=== PATIENT | male | born 1975 | race Caucasian/White ===

== ENCOUNTER 2020-04-27 14:08 | Outpatient (REF) | payer OTHER, SELFPAY ==
[2020-04-27 14:30] LABS: COVID-19 Test Negative (Negative)
== END 2020-04-27 14:09 | disposition home or self-care (01) ==
LOC: HO.LAB 14:08
PROVIDERS: Visit Provider Internal Medicine
DX: Z20.828 Contact with and (suspected) exposure to other viral communicable diseases (principal)
CPT/HCPCS: 87635

== ENCOUNTER 2020-05-02 11:41 | Emergency (ER) | payer OTHER, SELFPAY ==
[2020-05-02 11:56] VITALS: BP 194/98; PULSE 92; RESP 20; TEMP 36.6; O2SAT 100; BMI 38.5
--- NOTE | 2020-05-02 11:57 | ED_ITS ---
HPI - Recheck/Abnormal Lab/Rx General Chief Complaint: General Medical Stated Complaint: high blood pressure Time Seen by Provider: 05/02/20 11:52 Source: patient Mode of arrival: ambulatory Limitations: no limitations History of Present Illness HPI narrative: 44 y/o male with history of poorly controlled DM on insulin, osteomyelitis s/p bilateral BKA's, asthma, HTN hepatitis C, anxiety who presents today with high blood pressure x4 days associated with headache. He states his BP readings at home have been 220/110 every morning. He has been compliant with his lopressor xl and he recently had losartan added. He took both prior to coming to the ER today. Denies chest pain, SOB, vision changes. BP on arrival 19 0/90. Related Data Previous Rx's Medication Instructions Recorded labetalol 100 mg PO BID #30 tab 05/02/20 Allergies Allergy/AdvReac Type Severity Reaction Status Date / Time clindamycin [CLINDAMYCIN] Allergy Intermediate RASH ALL Verified 05/02/20 11:56 OVER SKIN ON BACK daptomycin [DAPTOMYCIN] Allergy Mild UNKNOWN Verified 05/02/20 11:56 doxycycline [DOXYCYCLINE] Allergy Mild HIVES Verified 05/02/20 11:56 vancomycin [VANCOMYCIN] Allergy Mild UNKNOWN Verified 05/02/20 11:56 amoxicillin Allergy Unknown Unknown Verified 05/02/20 11:56 cephalexin [From Keflex] Allergy Unknown HIVES Verified 05/02/20 11:56 penicillin V Allergy Unknown Unknown Verified 05/02/20 11:56 Sulfa (Sulfonamide Allergy Unknown Unknown Verified 05/02/20 11:56 Antibiotics) sulfamethoxazole Allergy Unknown HIVES Verified 05/02/20 11:56 [From Bactrim] trimethoprim [From Bactrim] Allergy Unknown HIVES Verified 05/02/20 11:56 Review of Systems Review of Systems: Constitutional: No Fever, No Chills ENT/Mouth: No sore throat, No Rhinorrhea, No Swallowing Difficulty Eyes: No Eye Pain, No Swelling, No Redness Cardiovascular: No Chest Pain, No SOB, No Orthopnea, No Edema Respiratory: No Cough, No Sputum, No Wheezing, No dyspnea Gastrointestinal: No Nausea, No Vomiting, No Diarrhea, No abdominal Pain, No Hematochezia, No Melena Genitourinary: No Dysuria, No Urinary Frequency, No Hematuria Musculoskeletal: No joint pain, No Myalgias Skin: No Skin Lesions, No rash Neuro: No Weakness, No Numbness, No Dizziness, + Headache Psych: No Anxiety/Panic, No Depression Heme/Lymph: No Bruising, No Lymphadenopathy Endocrine: No Polyuria, No Polydipsia PMFSH Past Medical History Attestation statement: The following information was validated with the patient. Medical History Amputated below knee Diabetes Hypertension Opiate abuse, episodic Surgical History (Updated 05/02/20 @ 11:59 by Laney Gonsales) History of shoulder surgery Social History Social History Alcohol intake: never Smoking Status: Never smoker Use of substances other than those prescribed or required for medical reasons: No Advance Directives: No Advance Directives Information Provided: No Physical Exam Vital Signs: Vital Signs: Vital Signs Temp Pulse Resp BP Pulse Ox 05/02/20 16:23 115 H 171/89 H 05/02/20 16:00 97.8 F 94 16 171/89 H 99 05/02/20 14:04 91 170/88 H 05/02/20 13:04 97 12 176/95 H 05/02/20 12:36 98.4 F 103 H 18 172/86 H 98 05/02/20 11:56 97.8 F 92 20 194/98 H 100 Body Mass Index 38.5 Appearance: Alert. Oriented X3. No acute distress. Eyes: Pupils equal, round and reactive to light. ENT: Pharynx normal. Neck: Normal inspection. Neck supple. CVS: Normal heart rate and rhythm. Pulses normal. Respiratory: No respiratory distress. Breath sounds normal. Abdomen: Obese, Soft and nontender. +BS x4 Skin: Skin warm and dry. Normal skin color. Normal skin turgor. No rashes. Extremities: s/p bilateral BKA Neuro: Oriented X 3. No motor deficit. No sensory deficit. Course Course Course Narrative: BP 181/96 on arrival that improved to 172/[address] head negative. Will hold off on IV antihypertensives at this time. He states his usual BP is 160's systolic. Reevaluation(s) Reevaluation #1: glucose noted to be 515 without evidence of DKA. IVF ordered and SQ insulin. He is on high doses of insulin and did not take his insulin today because he did not feel well and knew he was coming to the ER. BP remains stable 170's/80-90's without intervention. CKD at baseline 2.3 from 2.1. He would like to be changed from Toprol XL to another medication for his BP. He feels like this one does not work well for him. Spoke with [facility] for dosing equivalent - will change to labetolol 100 BID and d/c Toprol XL. He has an appointment with his Senior Business Development Manager next week when he returns from [place]. He is stable for discharge. MDM - Recheck/Abnormal Lab/Rx Lab Data Result diagrams: 05/02/20 12:42 05/02/20 12:42 Labs: Lab Results 05/02/20 05/02/20 Range/Units 12:42 12:42 WBC 7.2 (4.8-10.8) X10*3/uL RBC 3.89 L (4.60-5.80) X10*6/uL Hgb 11.1 L (14.0-18.0) g/dl Hct 33.8 L (42-52) % MCV 86.9 (80-98) fL MCH 28.5 (27.0-33.0) pg MCHC 32.8 (31.0-36.0) g/dl RDW 13.3 (11.0-16.0) % Plt Count 93 L (160-400) X10*3/uL MPV 13.7 H (9.4-12.4) fL Immature Gran % (Auto) 0.1 (0.0-0.4) % Neut % (Auto) 63.4 (45-73) % Lymph % (Auto) 25.7 (20-40) % Putnam % (Auto) 9.4 (2-11) % Eos % (Auto) 1.1 (0-4) % Baso % (Auto) 0.3 (0-2) % Lymph # (Auto) 1.9 (1.2-4.9) X10*3/uL Putnam # (Auto) 0.7 (0.1-1.2) X10*3/uL Eos # (Auto) 0.1 (0.0-0.4) X10*3/uL Baso # (Auto) 0.0 (0.0-0.2) X10*3/uL Abs Immat Gran (auto) 0.01 (0.00-0.03) X10*3/uL Absolute Neuts (auto) 4.6 (2.0-8.3) X10*3/uL Absolute Nucleated RBC 0.000 (0.0-0.012) X10*3/uL Nucleated RBC % (auto) 0.0 (0.0-0.2) /100WBC Smear Tech's Comments VERIFIED Sodium 131 L (135-145) mmol/L Potassium 4.3 (3.3-5.1) mmol/l Chloride 100 (96-108) mmol/L Carbon Dioxide 24 (22-29) mmol/L Anion Gap 11 L (12-20) BUN 29 H (9-16) mg/dL Creatinine 2.32 H (0.5-1.4) mg/dL Estim Creat Clear Calc 59.6 Estimated GFR 31 Random Glucose 515 H* (60-115) mg/dL Calcium 7.9 L (8.4-10.2) mg/dL Discharge Plan Discharge Clinical Impression: Hypertension associated with stage 3 chronic kidney disease due to type 2 diabetes mellitus Chronic pain Qualifiers: Chronic pain type: chronic pain syndrome Qualified Code(s): G89.4 - Chronic pain syndrome Patient Disposition: Home, Self-Care Instructions: Low-Sodium Diet (ED), Hypertension and Diabetes (ED) Additional Instructions: It is important that you take all of your medications as prescribed. Your blood pressure medication was changed from metoporolol XL to labetalol for better BP control. STOP taking Metoprolol. If is important that you follow up with your doctor for further management of your blood pressure, kidney disease, and diabetes. Your blood sugar today was very elevated. You must adhere to a diabetic diet and take your insulin as directed. If you develop chest pain, shortness of breath, recurrent headache or dizziness, or persistently elevated blood pressure call 911 or come back to the ER for further evaluation. Prescriptions: New labetalol 100 mg tablet 100 mg PO BID Qty: 30 RF: 0
--- NOTE | 2020-05-02 12:15 | CT_ITS ---
EXAMINATION: CT HEAD WITHOUT CONTRAST CLINICAL INFORMATION: Headache. COMPARISON: None TECHNIQUE: Contiguous axial imaging was performed from the skull base to vertex without intravenous administration of contrast. This CT examination was performed using dose optimization techniques as appropriate, variously including the following: *Automated exposure control *Adjustment of mA and/or kV according to patient size (this includes techniques or standardized protocols for targeted exams where dose is matched to indication/reason for exam; i.e. extremities or head) *Use of iterative reconstruction technique DLP: 906 mGy-cm FINDINGS: There is no evidence of acute intracranial hemorrhage or territorial infarction. No abnormal mass effect or midline shift is seen. Coleman to white matter differentiation is well preserved. No extra-axial fluid collections are identified. The ventricles are normal in size. There is no abnormal attenuation within the brain parenchyma. The osseous structures and soft tissues are normal. The mastoid air cells and visualized portions of the paranasal sinuses are well aerated. IMPRESSION: No acute intracranial process seen.
[2020-05-02 12:36] VITALS: BP 172/86; PULSE 103; RESP 18; TEMP 36.9; O2SAT 98
[2020-05-02 12:48] LABS: Basophils Percent Auto 0.3 % (0-2); Imm Gran Abs Auto 0.01 X10*3/uL (0.00-0.03); Imm Gran Pct Auto 0.1 % (0.0-0.4); MANUAL DIFF FLAG SCAN; SCAN SMEAR FLAG 1
[2020-05-02 12:50] LABS: Eosinophils Absolute Auto 0.1 X10*3/uL (0.0-0.4); Eosinophils Percent Auto 1.1 % (0-4); Hematocrit 33.8 % (42-52); Hemoglobin 11.1 g/dl (14.0-18.0); Lymphocytes Absolute Auto 1.9 X10*3/uL (1.2-4.9); Lymphocytes Percent Auto 25.7 % (20-40); Mean Corpuscular HGB Conc 32.8 g/dl (31.0-36.0); Mean Corpuscular Hemoglobin 28.5 pg (27.0-33.0); Mean Corpuscular Volume 86.9 fL (80-98); Mean Platelet Volume 13.7 fL (9.4-12.4); Monocytes Absolute Auto 0.7 X10*3/uL (0.1-1.2); Monocytes Percent Auto 9.4 % (2-11); Neutrophils Absolute Auto 4.6 X10*3/uL (2.0-8.3); Neutrophils Percent Auto 63.4 % (45-73); Red Blood Count 3.89 X10*6/uL (4.60-5.80); Red Cell Distribution Width 13.3 % (11.0-16.0); White Blood Count 7.2 X10*3/uL (4.8-10.8)
[2020-05-02 12:51] LABS: PLT ABN DIST 1; Platelet Count 93 X10*3/uL (160-400)
[2020-05-02 13:04] VITALS: BP 176/95; PULSE 97; RESP 12
[2020-05-02 13:10] LABS: SLIDE REVIEW VERIFIED
[2020-05-02 13:44] LABS: Anion Gap 11 (12-20); Blood Urea Nitrogen 29 mg/dL (9-16); Calcium 7.9 mg/dL (8.4-10.2); Carbon Dioxide 24 mmol/L (22-29); Chloride 100 mmol/L (96-108); Creatinine Clr Calc Pharmacy 59.6; Estimated Glomerular Filt Rate 31; Glucose Random 515 mg/dL (60-115); Potassium 4.3 mmol/l (3.3-5.1); Sodium 131 mmol/L (135-145)
[2020-05-02 14:04] VITALS: BP 170/88; PULSE 91
[2020-05-02] MEDS: ondansetron HCL 4 MG/2 ML VIAL IVPUSH ×2 (14:33→14:35)
[2020-05-02] MEDS: 0.9 % Sodium Chloride 1,000 ML 999 ML IVCONT (14:33)
[2020-05-02] MEDS: Insulin Lispro 100 UNIT/ML 3 ML VIAL 12 UNIT SUBCUT (14:34)
[2020-05-02] MEDS: oxyCODONE HCl Immed Release 5 MG TABLET PO (14:34)
[2020-05-02] MEDS: oxyCODONE HCl Immed Release 15 MG TABLET 30 MG PO (14:54)
[2020-05-02 16:00] VITALS: BP 171/89; PULSE 94; RESP 16; TEMP 36.6; O2SAT 99
[2020-05-02 16:23] VITALS: BP 171/89; PULSE 115
[2020-05-02] MEDS: Labetalol HCL 100 MG TABLET PO (16:23)
--- NOTE | 2020-05-02 16:27 | PC.NURSE ---
RN AWARE BLOOD SUGAR 484.
[2020-05-02 16:32] LABS: Glucose, Whole Blood 484 mg/dL (60-115)
== END 2020-05-02 17:10 | disposition home or self-care (01) ==
PROVIDERS: Physician Assistant; Emergency Provider Emergency Medicine
DX: E11.22 Type 2 diabetes mellitus with diabetic chronic kidney disease (principal); G89.4 Chronic pain syndrome; F11.10 Opioid abuse, uncomplicated; I10 Essential (primary) hypertension; Z79.899 Other long term (current) drug therapy; Z79.4 Long term (current) use of insulin
CPT/HCPCS: 36415; 70450; 80048; 82947; 85025; 96361; 96374; 99284; J2405

== ENCOUNTER 2020-06-08 00:39 | Emergency (ER) | payer OTHER, SELFPAY ==
[2020-06-08 00:59] VITALS: BP 205/108; PULSE 108; RESP 20; TEMP 36; O2SAT 99; BMI 37.2
[2020-06-08 02:00] VITALS: BP 174/97; PULSE 101; RESP 18; TEMP 36.4; O2SAT 99
--- NOTE | 2020-06-08 02:01 | ED.GENADULT ---
HPI - General Adult General Chief complaint: Extremity Problem Stated complaint: PHANTOM PAIN Time Seen by Provider: 06/08/20 01:59 Source: patient Mode of arrival: ambulatory History of Present Illness HPI narrative: Right lower leg pain. Patient does have a qcjxk-lnn-pset amputation. Patient states occasionally will have phantom pain. Patient states did recently have adjustment to his prosthetic and is now having pain. Denies redness bleeding or fevers. Denies new trauma MD complaint: Right lower leg pain Onset (ago): hour(s) Severity scale (1-10): 8 Quality: sharp Related Data Home Medications Medication Instructions Recorded Confirmed oxycodone 40 mg PO Q4H PRN 06/08/20 06/08/20 Previous Rx's Medication Instructions Recorded labetalol 100 mg PO BID #30 tab 05/02/20 Allergies Allergy/AdvReac Type Severity Reaction Status Date / Time clindamycin [CLINDAMYCIN] Allergy Intermediate RASH ALL Verified 05/02/20 11:56 OVER SKIN ON BACK daptomycin [DAPTOMYCIN] Allergy Mild UNKNOWN Verified 05/02/20 11:56 doxycycline [DOXYCYCLINE] Allergy Mild HIVES Verified 05/02/20 11:56 vancomycin [VANCOMYCIN] Allergy Mild UNKNOWN Verified 05/02/20 11:56 amoxicillin Allergy Unknown Unknown Verified 05/02/20 11:56 cephalexin [From Keflex] Allergy Unknown HIVES Verified 05/02/20 11:56 penicillin V Allergy Unknown Unknown Verified 05/02/20 11:56 Sulfa (Sulfonamide Allergy Unknown Unknown Verified 05/02/20 11:56 Antibiotics) sulfamethoxazole Allergy Unknown HIVES Verified 05/02/20 11:56 [From Bactrim] trimethoprim [From Bactrim] Allergy Unknown HIVES Verified 05/02/20 11:56 Review of Systems Review of Systems: Constitutional : No Weight loss, No Fever, No Chills, No Night Sweats, No Fatigue, No Malaise ENT/Mouth : No Hearing loss, No Ear Pain, No Nasal Congestion, No Sinus Pain, No Hoarseness, No sore throat, No Rhinorrhea, No Swallowing Difficulty Eyes: No Eye Pain, No Swelling, No Redness, No Foreign Body, No Discharge, No Vision Changes Cardiovascular : No Chest Pain, No SOB, No Dyspnea on Exertion, No Orthopnea, No Edema, No Palpitations Respiratory : No Cough, No Sputum, No Wheezing, No Smoke Exposure, No Dyspnea Gastrointestinal : No Nausea, No Vomiting, No Diarrhea, No Constipation, No abdominal Pain, No Hematochezia, No Melena Genitourinary : no irregular bleeding, No Dysuria, No Urinary Frequency, No Hematuria, No Urinary Incontinence, No Urgency, No Flank Pain, No Urinary Flow Changes, No Hesitancy Musculoskeletal : No joint pain, No Myalgias, No Joint Swelling right lower leg pain Skin : No Skin Lesions, No rash Neuro : No Weakness, No Numbness, No Paresthesias, No Loss of Consciousness, No Dizziness, No Headache Psych : No Anxiety/Panic, No Depression, No SI/HI/AH/VH, No Social Issues, Heme/Lymph: No Bruising, No Bleeding,No Lymphadenopathy Endocrine : No Polyuria, No Polydipsia, No Temperature Intolerance [facility] Past Medical History Medical History Amputated below knee Diabetes Hypertension Opiate abuse, episodic Surgical History History of shoulder surgery Social History Social History Alcohol intake: never Smoking Status: Never smoker Advance Directives: No Advance Directives Information Provided: No Physical Exam Vital Signs: Vital Signs: Last Vital Signs Temp 97.6 F 06/08/20 02:00 Pulse 106 H 06/08/20 02:58 Resp 24 H 06/08/20 02:58 BP 152/87 H 06/08/20 02:58 Pulse Ox 98 06/08/20 02:58 Body Mass Index 37.2 Vital signs reviewed Appearance: Alert. Oriented X3. No acute distress. Eyes: Pupils equal, round and reactive to light. ENT: Pharynx normal. Neck: Normal inspection. Neck supple. No lymph nodes noted. No crepitus CVS: Normal heart rate and rhythm. Pulses normal. Normal S1 and S2 Respiratory: No respiratory distress. Breath sounds normal. No Wheezing. No rales Abdomen: Soft and nontender. No rigidity. No distention. good BS x4 Skin: Skin warm and dry. Normal skin color. Normal skin turgor. Extremities: Bilateral tqrmt-zuk-zhst amputation. Right leg stump without erythema no abscess no ecchymosis Neurovascular intact to all extremities. No Lacerations. No Rash Neuro: Oriented X 3. No motor deficit. No sensory deficit. Moving all extermities. No slurred speech. Course Course Course Narrative: Patient without signs of infection or sepsis. Patient seen here multiple times secondary to pain Reevaluation(s) Reevaluation #1: Patient given multiple IM injections secondary to pain. Patient with a history of phantom pain. Patient reassessment doing much improved. Not driving home Time: 03:53 Medical Decision Making [facility] Narrative Medical decision making narrative: 45-year-old male with a history bilateral BKA. Presents with right side phantom pain. No signs of infection. Improved pain with IM medications Discharge Plan Discharge Clinical Impression: Pain, phantom limb Patient Disposition: Home, Self-Care Instructions: Leg Pain (ED) Additional Instructions: Thank you for visiting the emergency department today. If your symptoms worsen or do not resolve completely please return to the emergency department immediately or call 911. If you have any questions please call your primary care physician Prescriptions: No Action labetalol 100 mg tablet 100 mg PO BID Qty: 30 RF: 0 oxycodone 20 mg Tablet 40 mg PO Q4H PRN (Reason: Pain) RF: 0 Referrals: [facility] [Provider Group] - 2 days Interventions: ED Discharge Assessment Last Done: 06/08/20 04:04 Discharge Date/Time: 06/08/20 04:05
[2020-06-08] MEDS: HYDROmorphone HCl 2 MG/ML VIAL 4 MG IM ×2 (02:13→02:59)
--- NOTE | 2020-06-08 02:15 | PC.NURSE ---
Pt medicated per EMAR with Dilaudid.
[2020-06-08 02:58] VITALS: BP 152/87; PULSE 106; RESP 24; O2SAT 98
--- NOTE | 2020-06-08 03:01 | PC.NURSE ---
Pt medicated with additional dose of Dilaudid, pt reports no relief of pain.
--- NOTE | 2020-06-08 03:42 | PC.NURSE ---
Pt found standing outside his room, requesting food/drink, states he is pain free and ready to be discharged. aware.
== END 2020-06-08 04:05 | disposition home or self-care (01) ==
PROVIDERS: Emergency Provider Emergency Medicine
DX: G54.6 Phantom limb syndrome with pain (principal); I10 Essential (primary) hypertension; E11.9 Type 2 diabetes mellitus without complications; F11.10 Opioid abuse, uncomplicated; Z79.899 Other long term (current) drug therapy
CPT/HCPCS: 96372; 99284; J1170

== ENCOUNTER 2020-06-14 14:21 | Emergency (ER) | payer OTHER, SELFPAY ==
[2020-06-14 15:39] VITALS: BP 154/68; PULSE 99; RESP 16; TEMP 35.9; O2SAT 98; BMI 82.0
[2020-06-14 17:46] VITALS: BP 148/66; PULSE 88; RESP 18; TEMP 36.2; O2SAT 100
--- NOTE | 2020-06-14 18:56 | ED_ITS ---
HPI - Extremity Problem General Chief complaint: Extremity Problem Stated complaint: phantom pain Time Seen by Provider: 06/14/20 17:58 History of Present Illness HPI Narrative: 45-year-old male with a history of bilateral zwebc-lwt-hcma amputations who presents to the emergency department for evaluation of phantom pain in his left extremity. He states that he feels as if his left foot is burning despite fact that he has a timfs-gen-jznk amputation. He states that he gets this sensation every 6 months. He states that he had an adjustment to his prosthesis 2 days prior and this is precipitated this pain. He states that he has a constant knife-like pain that feels like it is cutting into the bone of his left foot. He has been taking OxyContin without any relief of his pain. He denied fever chills chest pain or shortness of breath. He was seen in the emergency department on 06/08/2020 for similar complaint. He apparently has been seen in the emergency department in the past as well. The patient states that despite taking oxycodone he has not had relief with the pain and that the only medication that works is Dilaudid 4 mg intramuscularly. He is requesting a shot IM Dilaudid for his pain. Related Data Home Medications Medication Instructions Recorded Confirmed oxycodone 40 mg PO Q4H PRN 06/08/20 06/08/20 Previous Rx's Medication Instructions Recorded labetalol 100 mg PO BID #30 tab 05/02/20 Allergies Allergy/AdvReac Type Severity Reaction Status Date / Time clindamycin [CLINDAMYCIN] Allergy Intermediate RASH ALL Verified 05/02/20 11:56 OVER SKIN ON BACK daptomycin [DAPTOMYCIN] Allergy Mild UNKNOWN Verified 05/02/20 11:56 doxycycline [DOXYCYCLINE] Allergy Mild HIVES Verified 05/02/20 11:56 vancomycin [VANCOMYCIN] Allergy Mild UNKNOWN Verified 05/02/20 11:56 amoxicillin Allergy Unknown Unknown Verified 05/02/20 11:56 cephalexin [From Keflex] Allergy Unknown HIVES Verified 05/02/20 11:56 penicillin V Allergy Unknown Unknown Verified 05/02/20 11:56 Sulfa (Sulfonamide Allergy Unknown Unknown Verified 05/02/20 11:56 Antibiotics) sulfamethoxazole Allergy Unknown HIVES Verified 05/02/20 11:56 [From Bactrim] trimethoprim [From Bactrim] Allergy Unknown HIVES Verified 05/02/20 11:56 Review of Systems Review of Systems: Yes all other systems are reviewed and are negative Constitutional: Constitutional: Reports as per HPI Eyes: Eyes: Reports as per HPI ENT: Reports as per HPI Cardiovascular: Cardiovascular: Reports as per HPI Respiratory: Respiratory: Reports as per HPI Gastrointestinal: Gastrointestinal: Reports as per HPI Genitourinary: Genitourinary: Reports as per HPI Musculoskeletal: Musculoskeletal: Reports as per HPI Integumentary/Breasts: Skin/Breast: Reports as per HPI Neurologic: Reports as per HPI Psychiatric: Psychiatric: Reports as per HPI Allergic/Immunologic: Allergic/Immunologic: Reports as per HPI [facility] Past Medical History Medical History Amputated below knee Diabetes Hypertension Opiate abuse, episodic Surgical History History of shoulder surgery Social History Social History Alcohol intake: never Smoking Status: Never smoker Advance Directives: No Advance Directives Information Provided: No Physical Exam Vital Signs: Vital Signs: Last Vital Signs Temp 97.1 F 06/14/20 17:46 Pulse 88 06/14/20 17:46 Resp 18 06/14/20 17:46 BP 148/66 H 06/14/20 17:46 Pulse Ox 100 06/14/20 17:46 Body Mass Index 82.0 Const: General: cooperative, healthy appearing and no acute distress Skin: General skin exam: no rashes or lesions noted Lesions: no lesions Wounds: no wounds Extrem: General: Yes other (Left snsvp-xpc-dodu amputation, skin appears normal,) Course Course Course Narrative: 45-year-old male with bilateral cxpbm-pcq-ztts amputations, complaining of phantom pain in the left leg, patient has had similar presentations in the past and was seen here within the last week for phantom pain in the right lower extremity. The patient does take oxycodone at home but states this is not relieving his pain. Patient's exam does not reveal any signs infection. I did tell the patient that treating chronic pain with IM narcotics is contraindicated in the emergency department and I advised him to follow-up with his doctor to discuss further pain management as an outpatient. Discharge Plan Discharge Clinical Impression: Phantom limb pain Patient Disposition: Home, Self-Care Additional Instructions: At this time, it does not look like you have an infection of the below the knee amputation. Continue taking your medications as prescribed by your doctor. Call your doctor tomorrow for follow-up and discuss further pain management. Prescriptions: No Action labetalol 100 mg tablet 100 mg PO BID Qty: 30 RF: 0 oxycodone 20 mg Tablet 40 mg PO Q4H PRN (Reason: Pain) RF: 0 Referrals: Rosa M Cristobal [Emergency Nurse] - 2 days
== END 2020-06-14 19:16 | disposition home or self-care (01) ==
PROVIDERS: Emergency Provider Emergency Medicine Emergency Medical Services
DX: G54.6 Phantom limb syndrome with pain (principal); Z89.512 Acquired absence of left leg below knee; Z89.511 Acquired absence of right leg below knee; E11.9 Type 2 diabetes mellitus without complications; I10 Essential (primary) hypertension; F11.10 Opioid abuse, uncomplicated
CPT/HCPCS: 99283

== ENCOUNTER 2020-07-08 04:52 | Emergency (ER) | payer OTHER, SELFPAY ==
[2020-07-08 04:55] VITALS: BP 207/87; PULSE 101; RESP 18; TEMP 36.6; O2SAT 99; BMI 35.9
[2020-07-08 05:01] VITALS: BP 170/91
--- NOTE | 2020-07-08 05:25 | ED.GENADULT ---
HPI - General Adult General Chief complaint: General Medical Stated complaint: Phantom pain Time Seen by Provider: 07/08/20 05:25 Source: patient Mode of arrival: ambulatory Limitations: no limitations History of Present Illness HPI narrative: Patient bilateral BKA 3 years ago been here multiple times for phantom pain today he woke up at 04:00 o'clock with increased pain in right stump no skin breakdown no fever patient taking oxycodone for pain patient's blood sugar been stable was 170 earlier today Onset (ago): hour(s) (1) Location: lower extremity Severity: moderate Related Data Home Medications Medication Instructions Recorded Confirmed oxycodone 40 mg PO Q4H PRN 06/08/20 06/08/20 Previous Rx's Medication Instructions Recorded labetalol 100 mg PO BID #30 tab 05/02/20 Allergies Allergy/AdvReac Type Severity Reaction Status Date / Time clindamycin [CLINDAMYCIN] Allergy Intermediate RASH ALL Verified 05/02/20 11:56 OVER SKIN ON BACK daptomycin [DAPTOMYCIN] Allergy Mild UNKNOWN Verified 05/02/20 11:56 doxycycline [DOXYCYCLINE] Allergy Mild HIVES Verified 05/02/20 11:56 vancomycin [VANCOMYCIN] Allergy Mild UNKNOWN Verified 05/02/20 11:56 amoxicillin Allergy Unknown Unknown Verified 05/02/20 11:56 cephalexin [From Keflex] Allergy Unknown HIVES Verified 05/02/20 11:56 penicillin V Allergy Unknown Unknown Verified 05/02/20 11:56 Sulfa (Sulfonamide Allergy Unknown Unknown Verified 05/02/20 11:56 Antibiotics) sulfamethoxazole Allergy Unknown HIVES Verified 05/02/20 11:56 [From Bactrim] trimethoprim [From Bactrim] Allergy Unknown HIVES Verified 05/02/20 11:56 Review of Systems Review of Systems: Yes all other systems are reviewed and are negative PMFSH Past Medical History Medical History Amputated below knee Diabetes Hypertension Opiate abuse, episodic Surgical History History of shoulder surgery Social History Social History Alcohol intake: never Smoking Status: Never smoker Smoked in Last 30 Days: No Use of substances other than those prescribed or required for medical reasons: No Advance Directives: No Advance Directives Information Provided: No Physical Exam Vital Signs: Vital Signs: Last Vital Signs Temp 97.6 F 07/08/20 05:27 Pulse 101 H 07/08/20 05:27 Resp 18 07/08/20 05:33 BP 194/74 H 07/08/20 05:27 Pulse Ox 99 07/08/20 05:27 Body Mass Index 35.9 Appearance: Alert. Oriented X3. No acute distress. Eyes: Pupils equal, round and reactive to light. ENT: Pharynx normal. Neck: Normal inspection. Neck supple. CVS: Normal heart rate and rhythm. Pulses normal. Respiratory: No respiratory distress. Breath sounds normal. Abdomen: Soft and nontender. Skin: Skin warm and dry. Normal skin color. Normal skin turgor. Extremities: No lower extremity edema. Bilateral BKA stumps are healthy no signs of infection skin is normal Neuro: Oriented X 3. No motor deficit. No sensory deficit. Course Course Course Narrative: Patient with frequent ER visits for phantom pain will give him Dilaudid. Discharge him to be followed up with his PCP at this time there is no signs of infection Discharge Plan Discharge Prescriptions: No Action labetalol 100 mg tablet 100 mg PO BID Qty: 30 RF: 0 oxycodone 20 mg Tablet 40 mg PO Q4H PRN (Reason: Pain) RF: 0
[2020-07-08 05:27] VITALS: BP 194/74; PULSE 101; RESP 18; TEMP 36.4; O2SAT 99
[2020-07-08 05:33] VITALS: RESP 18
[2020-07-08] MEDS: HYDROmorphone HCl 2 MG/ML VIAL 4 MG IM (05:33)
[2020-07-08 05:40] VITALS: BP 171/76; PULSE 102; RESP 18
== END 2020-07-08 05:41 | disposition home or self-care (01) ==
PROVIDERS: Emergency Provider Internal Medicine
DX: G54.6 Phantom limb syndrome with pain (principal); I10 Essential (primary) hypertension; Z79.899 Other long term (current) drug therapy
CPT/HCPCS: 96372; 99284; J1170

== ENCOUNTER 2020-08-01 16:16 | Emergency (ER) | payer OTHER, SELFPAY ==
[2020-08-01 18:07] VITALS: BP 149/74; PULSE 98; RESP 16; TEMP 36.9; O2SAT 99
--- NOTE | 2020-08-01 19:03 | ECG_ITS ---
Test Reason : SOB Blood Pressure : / mmHG Vent. Rate : 095 BPM Atrial Rate : 095 BPM P-R Int : 154 ms QRS Dur : 076 ms QT Int : 348 ms P-R-T Axes : 040 031 186 degrees QTc Int : 437 ms Normal sinus rhythm Left ventricular hypertrophy with repolarization abnormality Abnormal ECG When compared with ECG of 10-APR-2020 03:40, No significant change was found Referred By: Trish Davidson Electronically Signed By:PADMAJA MANCILLA
--- NOTE | 2020-08-01 19:05 | ED_ITS ---
HPI - General Adult General Chief complaint: General Medical <TERRA Aggarwal - Last Filed: 08/01/20 19:15> Stated complaint: SOB <TERRA Aggarwal - Last Filed: 08/01/20 19:15> Time Seen by Provider: 08/01/20 19:02 <TERRA Aggarwal - Last Filed: 08/01/20 19:15> History of Present Illness HPI narrative: PLEASE SEE SHORTNESS OF BREATH TEMPLATE FOR ADDITIONAL TREATMENT. <Danisha Luis MD - Last Filed: 08/02/20 00:24> Related Data Home medications: Home Medications Medication Instructions Recorded Confirmed oxycodone 40 mg PO Q4H PRN 06/08/20 06/08/20 Previous Rx's Medication Instructions Recorded labetalol 100 mg PO BID #30 tab 05/02/20 <TERRA Aggarwal - Last Filed: 08/01/20 19:15> Allergies/adverse reactions: Allergies Allergy/AdvReac Type Severity Reaction Status Date / Time clindamycin [CLINDAMYCIN] Allergy Intermediate RASH ALL Verified 08/01/20 19:09 OVER SKIN ON BACK daptomycin [DAPTOMYCIN] Allergy Mild UNKNOWN Verified 08/01/20 19:09 doxycycline [DOXYCYCLINE] Allergy Mild HIVES Verified 08/01/20 19:09 vancomycin [VANCOMYCIN] Allergy Mild UNKNOWN Verified 08/01/20 19:09 amoxicillin Allergy Unknown Unknown Verified 08/01/20 19:09 cephalexin [From Keflex] Allergy Unknown HIVES Verified 08/01/20 19:09 penicillin V Allergy Unknown Unknown Verified 08/01/20 19:09 Sulfa (Sulfonamide Allergy Unknown Unknown Verified 08/01/20 19:09 Antibiotics) sulfamethoxazole Allergy Unknown HIVES Verified 08/01/20 19:09 [From Bactrim] trimethoprim [From Bactrim] Allergy Unknown HIVES Verified 08/01/20 19:09 <TERRA Aggarwal - Last Filed: 08/01/20 19:15> PMFSH Past Medical History Medical History: Medical History Amputated below knee Diabetes Hypertension Opiate abuse, episodic <TERRA Aggarwal - Last Filed: 08/01/20 19:15> Surgical History: Surgical History History of shoulder surgery <TERRA Aggarwal - Last Filed: 08/01/20 19:15> Social History Social History: Social History Alcohol intake: unknown Smoking Status: Unknown if ever smoked Use of substances other than those prescribed or required for medical reasons: Yes Substance Use Type: Opiates Substance Use Frequency: Chronic Longstanding Advance Directives: No <TERRA Aggarwal - Last Filed: 08/01/20 19:15> Physical Exam Vital Signs: Vital Signs: Last Vital Signs Temp 97.9 F 08/01/20 22:01 Pulse 96 08/01/20 22:40 Resp 15 08/01/20 23:39 BP 132/64 08/01/20 23:39 Pulse Ox 98 08/01/20 23:39 Body Mass Index 53.1 <TERRA Aggarwal - Last Filed: 08/01/20 19:15> Vital Signs: Last Vital Signs Temp 97.9 F 08/01/20 22:01 Pulse 96 08/01/20 22:40 Resp 15 08/01/20 23:39 BP 132/64 08/01/20 23:39 Pulse Ox 98 08/01/20 23:39 Body Mass Index 53.1 <Danisha Luis MD - Last Filed: 08/02/20 00:24> Course Course Course Narrative: Rapid medical assessment: 44 y/o male with multiple co-morbidities including poorly controlled DM, CKD, osteomyelitis s/p bilateral BKA's, asthma, HTN, hepatitis C, and anxiety who presents with reported hypoxia on his pulse oximeter at home. He states his oxygen level was 78% at rest and he reports NASH since yesterday. SpO2 99% with ambulation in the ER but very dyspneic. Also reports headache, left face/arm pain x1 day. Concern for COVID vs cardiac event vs PE. Vitals are stable, at rest no SOB. CXR, EKG, COVID swab and labs ordered. Management per primary provider in the ER <TERRA Aggarwal - Last Filed: 08/01/20 19:15> PLEASE SEE SHORTNESS OF BREATH TEMPLATE FOR ADDITIONAL TREATMENT. <Danisha Luis MD - Last Filed: 08/02/20 00:24> Medical Decision Making Lab Data Result diagrams: : 08/01/20 19:32 08/01/20 19:32 <TERRA Aggarwal - Last Filed: 08/01/20 19:15> Labs: Lab Results 08/01/20 08/01/20 08/01/20 Range/Units 19:32 19:32 19:32 WBC 8.3 (4.8-10.8) X10*3/uL RBC 3.87 L (4.60-5.80) X10*6/uL Hgb 11.1 L (14.0-18.0) g/dl Hct 34.5 L (42-52) % MCV 89.1 (80-98) fL MCH 28.7 (27.0-33.0) pg MCHC 32.2 (31.0-36.0) g/dl RDW 13.7 (11.0-16.0) % Plt Count 120 L D (160-400) X10*3/uL MPV 12.5 H (9.4-12.4) fL Immature Gran % (Auto) 0.2 (0.0-0.4) % Neut % (Auto) 61.1 (45-73) % Lymph % (Auto) 28.9 (20-40) % [place] % (Auto) 8.6 (2-11) % Eos % (Auto) 1.1 (0-4) % Baso % (Auto) 0.1 (0-2) % Lymph # (Auto) 2.4 (1.2-4.9) X10*3/uL [place] # (Auto) 0.7 (0.1-1.2) X10*3/uL Eos # (Auto) 0.1 (0.0-0.4) X10*3/uL Baso # (Auto) 0.0 (0.0-0.2) X10*3/uL Abs Immat Gran (auto) 0.02 (0.00-0.03) X10*3/uL Absolute Neuts (auto) 5.1 (2.0-8.3) X10*3/uL Absolute Nucleated RBC 0.000 (0.0-0.012) X10*3/uL Nucleated RBC % (auto) 0.0 (0.0-0.2) /100WBC Hold Blue Top SEE NOTE Sodium 136 (135-145) mmol/L Potassium 4.5 (3.3-5.1) mmol/l Chloride 107 (96-108) mmol/L Carbon Dioxide 22 (22-29) mmol/L Anion Gap 12 (12-20) BUN 35 H (9-16) mg/dL Creatinine 2.37 H (0.5-1.4) mg/dL Estim Creat Clear Calc 47.5 Estimated GFR 30 Random Glucose 148 H D (60-115) mg/dL Calcium 7.8 L (8.4-10.2) mg/dL Magnesium 1.8 (1.6-2.6) mg/dL Total Bilirubin < 0.2 (0.0-1.0) mg/dL Direct Bilirubin < 0.2 (0.0-0.5) mg/dL AST 30 (5-37) U/L ALT 32 (0-40) U/L Alkaline Phosphatase 220 H (39-117) U/L Troponin I High Sens (<3.5-35.0) ng/L B-Natriuretic Peptide (<100) pg/mL Total Protein 6.3 L (6.5-8.0) g/dL Albumin 2.3 L (3.5-5.0) g/dL Urine Color Urine Appearance Urine pH (5.0-8.0) Ur Specific [place] (1.005-1.025) Urine Protein (NEG-TRACE) MG/DL Urine Glucose (UA) (NEG) MG/DL Urine Ketones (NEG) MG/DL Urine Blood (NEG) Urine Nitrite (NEG) Ur Leukocyte Esterase (NEG) Urine RBC (0) /HPF Urine WBC (0-4) /HPF Ur Squamous Epith Cells /LPF Urine Bacteria /LPF Granular Casts /LPF Urine Opiates Screen (Not Detect) Ur Barbiturates Screen (Not Detect) Ur Phencyclidine Scrn (Not Detect) Ur Amphetamines Screen (Not Detect) U Benzodiazepines Scrn (Not Detect) Urine Cocaine Screen (Not Detect) U Marijuana (THC) Screen (Not Detect) Ethyl Alcohol mg/dL COVID-19 ([facility]) (Negative) COVID-19 Clin Com 08/01/20 08/01/20 08/01/20 Range/Units 19:32 19:32 19:32 WBC (4.8-10.8) X10*3/uL RBC (4.60-5.80) X10*6/uL Hgb (14.0-18.0) g/dl Hct (42-52) % MCV (80-98) fL MCH (27.0-33.0) pg MCHC (31.0-36.0) g/dl RDW (11.0-16.0) % Plt Count (160-400) X10*3/uL MPV (9.4-12.4) fL Immature Gran % (Auto) (0.0-0.4) % Neut % (Auto) (45-73) % Lymph % (Auto) (20-40) % [place] % (Auto) (2-11) % Eos % (Auto) (0-4) % Baso % (Auto) (0-2) % Lymph # (Auto) (1.2-4.9) X10*3/uL [place] # (Auto) (0.1-1.2) X10*3/uL Eos # (Auto) (0.0-0.4) X10*3/uL Baso # (Auto) (0.0-0.2) X10*3/uL Abs Immat Gran (auto) (0.00-0.03) X10*3/uL Absolute Neuts (auto) (2.0-8.3) X10*3/uL Absolute Nucleated RBC (0.0-0.012) X10*3/uL Nucleated RBC % (auto) (0.0-0.2) /100WBC Hold Blue Top Sodium (135-145) mmol/L Potassium (3.3-5.1) mmol/l Chloride (96-108) mmol/L Carbon Dioxide (22-29) mmol/L Anion Gap (12-20) BUN (9-16) mg/dL Creatinine (0.5-1.4) mg/dL Estim Creat Clear Calc Estimated GFR Random Glucose (60-115) mg/dL Calcium (8.4-10.2) mg/dL Magnesium (1.6-2.6) mg/dL Total Bilirubin (0.0-1.0) mg/dL Direct Bilirubin (0.0-0.5) mg/dL AST (5-37) U/L ALT (0-40) U/L Alkaline Phosphatase (39-117) U/L Troponin I High Sens 35.4 H (<3.5-35.0) ng/L B-Natriuretic Peptide 254 H (<100) pg/mL Total Protein (6.5-8.0) g/dL Albumin (3.5-5.0) g/dL Urine Color Urine Appearance Urine pH (5.0-8.0) Ur Specific [place] (1.005-1.025) Urine Protein (NEG-TRACE) MG/DL Urine Glucose (UA) (NEG) MG/DL Urine Ketones (NEG) MG/DL Urine Blood (NEG) Urine Nitrite (NEG) Ur Leukocyte Esterase (NEG) Urine RBC (0) /HPF Urine WBC (0-4) /HPF Ur Squamous Epith Cells /LPF Urine Bacteria /LPF Granular Casts /LPF Urine Opiates Screen (Not Detect) Ur Barbiturates Screen (Not Detect) Ur Phencyclidine Scrn (Not Detect) Ur Amphetamines Screen (Not Detect) U Benzodiazepines Scrn (Not Detect) Urine Cocaine Screen (Not Detect) U Marijuana (THC) Screen (Not Detect) Ethyl Alcohol < 10 mg/dL COVID-19 ([facility]) Negative (Negative) COVID-19 Clin Com See Note 08/01/20 08/01/20 08/01/20 Range/Units 21:57 21:57 21:57 WBC (4.8-10.8) X10*3/uL RBC (4.60-5.80) X10*6/uL Hgb (14.0-18.0) g/dl Hct (42-52) % MCV (80-98) fL MCH (27.0-33.0) pg MCHC (31.0-36.0) g/dl RDW (11.0-16.0) % Plt Count (160-400) X10*3/uL MPV (9.4-12.4) fL Immature Gran % (Auto) (0.0-0.4) % Neut % (Auto) (45-73) % Lymph % (Auto) (20-40) % [place] % (Auto) (2-11) % Eos % (Auto) (0-4) % Baso % (Auto) (0-2) % Lymph # (Auto) (1.2-4.9) X10*3/uL [place] # (Auto) (0.1-1.2) X10*3/uL Eos # (Auto) (0.0-0.4) X10*3/uL Baso # (Auto) (0.0-0.2) X10*3/uL Abs Immat Gran (auto) (0.00-0.03) X10*3/uL Absolute Neuts (auto) (2.0-8.3) X10*3/uL Absolute Nucleated RBC (0.0-0.012) X10*3/uL Nucleated RBC % (auto) (0.0-0.2) /100WBC Hold Blue Top Sodium (135-145) mmol/L Potassium (3.3-5.1) mmol/l Chloride (96-108) mmol/L Carbon Dioxide (22-29) mmol/L Anion Gap (12-20) BUN (9-16) mg/dL Creatinine (0.5-1.4) mg/dL Estim Creat Clear Calc Estimated GFR Random Glucose (60-115) mg/dL Calcium (8.4-10.2) mg/dL Magnesium (1.6-2.6) mg/dL Total Bilirubin (0.0-1.0) mg/dL Direct Bilirubin (0.0-0.5) mg/dL AST (5-37) U/L ALT (0-40) U/L Alkaline Phosphatase (39-117) U/L Troponin I High Sens 36.5 H (<3.5-35.0) ng/L B-Natriuretic Peptide (<100) pg/mL Total Protein (6.5-8.0) g/dL Albumin (3.5-5.0) g/dL Urine Color YELLOW Urine Appearance CLEAR Urine pH 5.5 (5.0-8.0) Ur Specific [place] 1.025 (1.005-1.025) Urine Protein 3+ H (NEG-TRACE) MG/DL Urine Glucose (UA) 500 H (NEG) MG/DL Urine Ketones NEG (NEG) MG/DL Urine Blood 1+ H (NEG) Urine Nitrite NEG (NEG) Ur Leukocyte Esterase NEG (NEG) Urine RBC 0-2 (0) /HPF Urine WBC 0-2 (0-4) /HPF Ur Squamous Epith Cells TRACE /LPF Urine Bacteria TRACE /LPF Granular Casts 0-2 /LPF Urine Opiates Screen POSITIVE H (Not Detect) Ur Barbiturates Screen Not Detected (Not Detect) Ur Phencyclidine Scrn Not Detected (Not Detect) Ur Amphetamines Screen Not Detected (Not Detect) U Benzodiazepines Scrn Not Detected (Not Detect) Urine Cocaine Screen Not Detected (Not Detect) U Marijuana (THC) Screen Not Detected (Not Detect) Ethyl Alcohol mg/dL COVID-19 ([facility]) (Negative) COVID-19 Clin Com <TERRA Aggarwal - Last Filed: 08/01/20 19:15> Lab Results 08/01/20 08/01/20 08/01/20 Range/Units 19:32 19:32 19:32 WBC 8.3 (4.8-10.8) X10*3/uL RBC 3.87 L (4.60-5.80) X10*6/uL Hgb 11.1 L (14.0-18.0) g/dl Hct 34.5 L (42-52) % MCV 89.1 (80-98) fL MCH 28.7 (27.0-33.0) pg MCHC 32.2 (31.0-36.0) g/dl RDW 13.7 (11.0-16.0) % Plt Count 120 L D (160-400) X10*3/uL MPV 12.5 H (9.4-12.4) fL Immature Gran % (Auto) 0.2 (0.0-0.4) % Neut % (Auto) 61.1 (45-73) % Lymph % (Auto) 28.9 (20-40) % [place] % (Auto) 8.6 (2-11) % Eos % (Auto) 1.1 (0-4) % Baso % (Auto) 0.1 (0-2) % Lymph # (Auto) 2.4 (1.2-4.9) X10*3/uL [place] # (Auto) 0.7 (0.1-1.2) X10*3/uL Eos # (Auto) 0.1 (0.0-0.4) X10*3/uL Baso # (Auto) 0.0 (0.0-0.2) X10*3/uL Abs Immat Gran (auto) 0.02 (0.00-0.03) X10*3/uL Absolute Neuts (auto) 5.1 (2.0-8.3) X10*3/uL Absolute Nucleated RBC 0.000 (0.0-0.012) X10*3/uL Nucleated RBC % (auto) 0.0 (0.0-0.2) /100WBC Hold Blue Top SEE NOTE Sodium 136 (135-145) mmol/L Potassium 4.5 (3.3-5.1) mmol/l Chloride 107 (96-108) mmol/L Carbon Dioxide 22 (22-29) mmol/L Anion Gap 12 (12-20) BUN 35 H (9-16) mg/dL Creatinine 2.37 H (0.5-1.4) mg/dL Estim Creat Clear Calc 47.5 Estimated GFR 30 Random Glucose 148 H D (60-115) mg/dL Calcium 7.8 L (8.4-10.2) mg/dL Magnesium 1.8 (1.6-2.6) mg/dL Total Bilirubin < 0.2 (0.0-1.0) mg/dL Direct Bilirubin < 0.2 (0.0-0.5) mg/dL AST 30 (5-37) U/L ALT 32 (0-40) U/L Alkaline Phosphatase 220 H (39-117) U/L Troponin I High Sens (<3.5-35.0) ng/L B-Natriuretic Peptide (<100) pg/mL Total Protein 6.3 L (6.5-8.0) g/dL Albumin 2.3 L (3.5-5.0) g/dL Urine Color Urine Appearance Urine pH (5.0-8.0) Ur Specific [place] (1.005-1.025) Urine Protein (NEG-TRACE) MG/DL Urine Glucose (UA) (NEG) MG/DL Urine Ketones (NEG) MG/DL Urine Blood (NEG) Urine Nitrite (NEG) Ur Leukocyte Esterase (NEG) Urine RBC (0) /HPF Urine WBC (0-4) /HPF Ur Squamous Epith Cells /LPF Urine Bacteria /LPF Granular Casts /LPF Urine Opiates Screen (Not Detect) Ur Barbiturates Screen (Not Detect) Ur Phencyclidine Scrn (Not Detect) Ur Amphetamines Screen (Not Detect) U Benzodiazepines Scrn (Not Detect) Urine Cocaine Screen (Not Detect) U Marijuana (THC) Screen (Not Detect) Ethyl Alcohol mg/dL COVID-19 ([facility]) (Negative) COVID-19 Clin Com 08/01/20 08/01/20 08/01/20 Range/Units 19:32 19:32 19:32 WBC (4.8-10.8) X10*3/uL RBC (4.60-5.80) X10*6/uL Hgb (14.0-18.0) g/dl Hct (42-52) % MCV (80-98) fL MCH (27.0-33.0) pg MCHC (31.0-36.0) g/dl RDW (11.0-16.0) % Plt Count (160-400) X10*3/uL MPV (9.4-12.4) fL Immature Gran % (Auto) (0.0-0.4) % Neut % (Auto) (45-73) % Lymph % (Auto) (20-40) % [place] % (Auto) (2-11) % Eos % (Auto) (0-4) % Baso % (Auto) (0-2) % Lymph # (Auto) (1.2-4.9) X10*3/uL [place] # (Auto) (0.1-1.2) X10*3/uL Eos # (Auto) (0.0-0.4) X10*3/uL Baso # (Auto) (0.0-0.2) X10*3/uL Abs Immat Gran (auto) (0.00-0.03) X10*3/uL Absolute Neuts (auto) (2.0-8.3) X10*3/uL Absolute Nucleated RBC (0.0-0.012) X10*3/uL Nucleated RBC % (auto) (0.0-0.2) /100WBC Hold Blue Top Sodium (135-145) mmol/L Potassium (3.3-5.1) mmol/l Chloride (96-108) mmol/L Carbon Dioxide (22-29) mmol/L Anion Gap (12-20) BUN (9-16) mg/dL Creatinine (0.5-1.4) mg/dL Estim Creat Clear Calc Estimated GFR Random Glucose (60-115) mg/dL Calcium (8.4-10.2) mg/dL Magnesium (1.6-2.6) mg/dL Total Bilirubin (0.0-1.0) mg/dL Direct Bilirubin (0.0-0.5) mg/dL AST (5-37) U/L ALT (0-40) U/L Alkaline Phosphatase (39-117) U/L Troponin I High Sens 35.4 H (<3.5-35.0) ng/L B-Natriuretic Peptide 254 H (<100) pg/mL Total Protein (6.5-8.0) g/dL Albumin (3.5-5.0) g/dL Urine Color Urine Appearance Urine pH (5.0-8.0) Ur Specific [place] (1.005-1.025) Urine Protein (NEG-TRACE) MG/DL Urine Glucose (UA) (NEG) MG/DL Urine Ketones (NEG) MG/DL Urine Blood (NEG) Urine Nitrite (NEG) Ur Leukocyte Esterase (NEG) Urine RBC (0) /HPF Urine WBC (0-4) /HPF Ur Squamous Epith Cells /LPF Urine Bacteria /LPF Granular Casts /LPF Urine Opiates Screen (Not Detect) Ur Barbiturates Screen (Not Detect) Ur Phencyclidine Scrn (Not Detect) Ur Amphetamines Screen (Not Detect) U Benzodiazepines Scrn (Not Detect) Urine Cocaine Screen (Not Detect) U Marijuana (THC) Screen (Not Detect) Ethyl Alcohol < 10 mg/dL COVID-19 ([facility]) Negative (Negative) COVID-19 Clin Com See Note 08/01/20 08/01/20 08/01/20 Range/Units 21:57 21:57 21:57 WBC (4.8-10.8) X10*3/uL RBC (4.60-5.80) X10*6/uL Hgb (14.0-18.0) g/dl Hct (42-52) % MCV (80-98) fL MCH (27.0-33.0) pg MCHC (31.0-36.0) g/dl RDW (11.0-16.0) % Plt Count (160-400) X10*3/uL MPV (9.4-12.4) fL Immature Gran % (Auto) (0.0-0.4) % Neut % (Auto) (45-73) % Lymph % (Auto) (20-40) % [place] % (Auto) (2-11) % Eos % (Auto) (0-4) % Baso % (Auto) (0-2) % Lymph # (Auto) (1.2-4.9) X10*3/uL [place] # (Auto) (0.1-1.2) X10*3/uL Eos # (Auto) (0.0-0.4) X10*3/uL Baso # (Auto) (0.0-0.2) X10*3/uL Abs Immat Gran (auto) (0.00-0.03) X10*3/uL Absolute Neuts (auto) (2.0-8.3) X10*3/uL Absolute Nucleated RBC (0.0-0.012) X10*3/uL Nucleated RBC % (auto) (0.0-0.2) /100WBC Hold Blue Top Sodium (135-145) mmol/L Potassium (3.3-5.1) mmol/l Chloride (96-108) mmol/L Carbon Dioxide (22-29) mmol/L Anion Gap (12-20) BUN (9-16) mg/dL Creatinine (0.5-1.4) mg/dL Estim Creat Clear Calc Estimated GFR Random Glucose (60-115) mg/dL Calcium (8.4-10.2) mg/dL Magnesium (1.6-2.6) mg/dL Total Bilirubin (0.0-1.0) mg/dL Direct Bilirubin (0.0-0.5) mg/dL AST (5-37) U/L ALT (0-40) U/L Alkaline Phosphatase (39-117) U/L Troponin I High Sens 36.5 H (<3.5-35.0) ng/L B-Natriuretic Peptide (<100) pg/mL Total Protein (6.5-8.0) g/dL Albumin (3.5-5.0) g/dL Urine Color YELLOW Urine Appearance CLEAR Urine pH 5.5 (5.0-8.0) Ur Specific [place] 1.025 (1.005-1.025) Urine Protein 3+ H (NEG-TRACE) MG/DL Urine Glucose (UA) 500 H (NEG) MG/DL Urine Ketones NEG (NEG) MG/DL Urine Blood 1+ H (NEG) Urine Nitrite NEG (NEG) Ur Leukocyte Esterase NEG (NEG) Urine RBC 0-2 (0) /HPF Urine WBC 0-2 (0-4) /HPF Ur Squamous Epith Cells TRACE /LPF Urine Bacteria TRACE /LPF Granular Casts 0-2 /LPF Urine Opiates Screen POSITIVE H (Not Detect) Ur Barbiturates Screen Not Detected (Not Detect) Ur Phencyclidine Scrn Not Detected (Not Detect) Ur Amphetamines Screen Not Detected (Not Detect) U Benzodiazepines Scrn Not Detected (Not Detect) Urine Cocaine Screen Not Detected (Not Detect) U Marijuana (THC) Screen Not Detected (Not Detect) Ethyl Alcohol mg/dL COVID-19 ([facility]) (Negative) COVID-19 Clin Com <Danisha Luis MD - Last Filed: 08/02/20 00:24> Discharge Plan Discharge Clinical Impression: Hypertensive CKD (chronic kidney disease), NASH (dyspnea on exertion) <TERRA Aggarwal - Last Filed: 08/01/20 19:15> Patient Disposition: Elopement <TERRA Aggarwal - Last Filed: 08/01/20 19:15> Additional Instructions: PLEASE SEE SHORTNESS OF BREATH TEMPLATE FOR ADDITIONAL TREATMENT. <TERRA Aggarwal - Last Filed: 08/01/20 19:15> Prescriptions: No Action labetalol 100 mg tablet 100 mg PO BID Qty: 30 RF: 0 oxycodone 20 mg Tablet 40 mg PO Q4H PRN (Reason: Pain) RF: 0 <TERRA Aggarwal - Last Filed: 08/01/20 19:15>
--- NOTE | 2020-08-01 19:06 | XR_ITS ---
EXAMINATION: CHEST 2 VIEWS CLINICAL INFORMATION: NASH, hypoxia . COMPARISON: 04/10/2020 chest x-ray. TECHNIQUE: PA and lateral views of the chest obtained. FINDINGS: The lungs are mildly hypoexpanded. No focal infiltrate, effusion, edema, or pneumothorax. Cardiac and mediastinal silhouettes are within normal limits for technique. No acute bony abnormality seen XR/XR chest 2V IMPRESSION: No evidence of acute disease
[2020-08-01 19:09] VITALS: BP 149/74; PULSE 98; RESP 16; TEMP 36.9; O2SAT 99; BMI 53.1
[2020-08-01 19:52] LABS: MANUAL DIFF FLAG NO
[2020-08-01 19:55] LABS: Basophils Percent Auto 0.1 % (0-2); Eosinophils Absolute Auto 0.1 X10*3/uL (0.0-0.4); Eosinophils Percent Auto 1.1 % (0-4); Hematocrit 34.5 % (42-52); Hemoglobin 11.1 g/dl (14.0-18.0); Imm Gran Abs Auto 0.02 X10*3/uL (0.00-0.03); Imm Gran Pct Auto 0.2 % (0.0-0.4); Lymphocytes Absolute Auto 2.4 X10*3/uL (1.2-4.9); Lymphocytes Percent Auto 28.9 % (20-40); Mean Corpuscular HGB Conc 32.2 g/dl (31.0-36.0); Mean Corpuscular Hemoglobin 28.7 pg (27.0-33.0); Mean Corpuscular Volume 89.1 fL (80-98); Mean Platelet Volume 12.5 fL (9.4-12.4); Monocytes Absolute Auto 0.7 X10*3/uL (0.1-1.2); Monocytes Percent Auto 8.6 % (2-11); Neutrophils Absolute Auto 5.1 X10*3/uL (2.0-8.3); Neutrophils Percent Auto 61.1 % (45-73); Platelet Count 120 X10*3/uL (160-400); Red Blood Count 3.87 X10*6/uL (4.60-5.80); Red Cell Distribution Width 13.7 % (11.0-16.0); White Blood Count 8.3 X10*3/uL (4.8-10.8)
[2020-08-01 20:10] LABS: COVID-19 Test Negative (Negative)
[2020-08-01 20:16] LABS: Ethanol < 10 mg/dL
[2020-08-01 20:43] LABS: Alanine Aminotransferase 32 U/L (0-40); Albumin Level 2.3 g/dL (3.5-5.0); Alkaline Phosphatase 220 U/L (39-117); Anion Gap 12 (12-20); Aspartate Amino Transferase 30 U/L (5-37); Bilirubin Direct < 0.2 mg/dL (0.0-0.5); Bilirubin Total < 0.2 mg/dL (0.0-1.0); Blood Urea Nitrogen 35 mg/dL (9-16); Calcium 7.8 mg/dL (8.4-10.2); Carbon Dioxide 22 mmol/L (22-29); Chloride 107 mmol/L (96-108); Creatinine Clr Calc Pharmacy 47.5; Estimated Glomerular Filt Rate 30; Glucose Random 148 mg/dL (60-115); Magnesium 1.8 mg/dL (1.6-2.6); Potassium 4.5 mmol/l (3.3-5.1); Sodium 136 mmol/L (135-145); Total Protein 6.3 g/dL (6.5-8.0)
[2020-08-01 20:44] LABS: B Type Natriuretic Peptide 254 pg/mL (<100); Troponin-I High Sensitivity 35.4 ng/L (<3.5-35.0)
--- NOTE | 2020-08-01 21:39 | ED_ITS ---
HPI - SOB/Dyspnea General Chief Complaint: General Medical Stated Complaint: SOB Time Seen by Provider: 08/01/20 19:02 Source: patient Mode of arrival: ambulatory History of Present Illness HPI Narrative: This is a 45-year-old male who presents with 7-8 days of dyspnea on exertion not associated with chest pain/palpitations, fevers, chills, GI symptoms, symptoms new cough, sore throat and states that he has had this for and at that time had been treated with blood pressure medication. Patient also endorses to nursing staff that he has a pulse oximeter that he noted was 70% at home while resting. Related Data Home Medications Medication Instructions Recorded Confirmed oxycodone 40 mg PO Q4H PRN 06/08/20 06/08/20 Previous Rx's Medication Instructions Recorded labetalol 100 mg PO BID #30 tab 05/02/20 Allergies Allergy/AdvReac Type Severity Reaction Status Date / Time clindamycin [CLINDAMYCIN] Allergy Intermediate RASH ALL Verified 08/01/20 19:09 OVER SKIN ON BACK daptomycin [DAPTOMYCIN] Allergy Mild UNKNOWN Verified 08/01/20 19:09 doxycycline [DOXYCYCLINE] Allergy Mild HIVES Verified 08/01/20 19:09 vancomycin [VANCOMYCIN] Allergy Mild UNKNOWN Verified 08/01/20 19:09 amoxicillin Allergy Unknown Unknown Verified 08/01/20 19:09 cephalexin [From Keflex] Allergy Unknown HIVES Verified 08/01/20 19:09 penicillin V Allergy Unknown Unknown Verified 08/01/20 19:09 Sulfa (Sulfonamide Allergy Unknown Unknown Verified 08/01/20 19:09 Antibiotics) sulfamethoxazole Allergy Unknown HIVES Verified 08/01/20 19:09 [From Bactrim] trimethoprim [From Bactrim] Allergy Unknown HIVES Verified 08/01/20 19:09 Review of Systems Review of Systems: Pertinent positives and negatives as stated in HPI 10 point systems otherwise negative. PMFSH Past Medical History Source: nursing notes reviewed Medical History Amputated below knee Diabetes Hypertension Opiate abuse, episodic Surgical History History of shoulder surgery Social History Social History Alcohol intake: unknown Smoking Status: Unknown if ever smoked Use of substances other than those prescribed or required for medical reasons: Yes Substance Use Type: Opiates Substance Use Frequency: Chronic Longstanding Advance Directives: No Physical Exam Vital Signs: Vital Signs: Last Vital Signs Temp 97.9 F 08/01/20 22:01 Pulse 96 08/01/20 22:40 Resp 15 08/01/20 23:39 BP 132/64 08/01/20 23:39 Pulse Ox 98 08/01/20 23:39 Body Mass Index 53.1 VITAL SIGNS: Reviewed. GENERAL: Obese, Well developed, well nourished, in no acute distress. HEAD: Normocephalic/atraumatic, EYES: PERRLA, EOMI EARS: Ext canals without abnormality, TMs non-bulging and non-erythematous NOSE: Nares patent bilateral OROPHARYNX: no oral lesions noted, posterior pharynx clear NECK: Supple, no adenopathy LUNGS: Normal breath sounds. No Tachypnea or increased work of breathing, SpO2<98> CARDIOVASCULAR: Regular rate and rhythm without noted murmurs, no JVD ABDOMEN: Obese, Soft, non-tender, non-distended with bowel sounds. MUSCULOSKELETAL: Bilateral lower extremity prosthetics in place EXTREMITIES: No cyanosis, clubbing or edema. SKIN: Inspection of the skin reveals no rashes NEUROLOGIC: Alert and oriented x 4. Course Course Course Narrative: This is a 45-year-old male with history and clinical presentation consistent with chronic renal condition and has presented before for similar symptoms. On review of all investigations there is no evidence of new/acute findings as the high sensitivity troponin levels and kidney function are consistent with baseline values. Specifically, the high sensitivity troponin in the presence of CKD, LVH, absence of symptoms, and no acute EKG change. Respiratory therapy conducted a walk test for 3 minutes at room air and noted that patient's oxygenation remained steady at 98-99%. Suspect that this shortness of breath is secondary to poorly controlled blood pressure, therefore patient was given 50 mg of labetalol as well as for past of albuterol. Patient's blood pressure responded well and on re-evaluation by [facility] staff prior to patient's elopement he reported improvement of shortness of breath and I had already discussed with patient that he needed to follow up with his it technical support specialist and/or his primary care provider to discuss better ways for blood pressure control as it was suspected this was contributing to his respiratory symptoms in the absence of alternative etiologies. Patient eloped and left without discharge paperwork. MDM - SOB/Dyspnea Lab Data Result diagrams: 08/01/20 19:32 08/01/20 19:32 Labs: Lab Results 08/01/20 08/01/20 08/01/20 Range/Units 19:32 19:32 19:32 WBC 8.3 (4.8-10.8) X10*3/uL RBC 3.87 L (4.60-5.80) X10*6/uL Hgb 11.1 L (14.0-18.0) g/dl Hct 34.5 L (42-52) % MCV 89.1 (80-98) fL MCH 28.7 (27.0-33.0) pg MCHC 32.2 (31.0-36.0) g/dl RDW 13.7 (11.0-16.0) % Plt Count 120 L D (160-400) X10*3/uL MPV 12.5 H (9.4-12.4) fL Immature Gran % (Auto) 0.2 (0.0-0.4) % Neut % (Auto) 61.1 (45-73) % Lymph % (Auto) 28.9 (20-40) % Heard % (Auto) 8.6 (2-11) % Eos % (Auto) 1.1 (0-4) % Baso % (Auto) 0.1 (0-2) % Lymph # (Auto) 2.4 (1.2-4.9) X10*3/uL Heard # (Auto) 0.7 (0.1-1.2) X10*3/uL Eos # (Auto) 0.1 (0.0-0.4) X10*3/uL Baso # (Auto) 0.0 (0.0-0.2) X10*3/uL Abs Immat Gran (auto) 0.02 (0.00-0.03) X10*3/uL Absolute Neuts (auto) 5.1 (2.0-8.3) X10*3/uL Absolute Nucleated RBC 0.000 (0.0-0.012) X10*3/uL Nucleated RBC % (auto) 0.0 (0.0-0.2) /100WBC Hold Blue Top SEE NOTE Sodium 136 (135-145) mmol/L Potassium 4.5 (3.3-5.1) mmol/l Chloride 107 (96-108) mmol/L Carbon Dioxide 22 (22-29) mmol/L Anion Gap 12 (12-20) BUN 35 H (9-16) mg/dL Creatinine 2.37 H (0.5-1.4) mg/dL Estim Creat Clear Calc 47.5 Estimated GFR 30 Random Glucose 148 H D (60-115) mg/dL Calcium 7.8 L (8.4-10.2) mg/dL Magnesium 1.8 (1.6-2.6) mg/dL Total Bilirubin < 0.2 (0.0-1.0) mg/dL Direct Bilirubin < 0.2 (0.0-0.5) mg/dL AST 30 (5-37) U/L ALT 32 (0-40) U/L Alkaline Phosphatase 220 H (39-117) U/L Troponin I High Sens (<3.5-35.0) ng/L B-Natriuretic Peptide (<100) pg/mL Total Protein 6.3 L (6.5-8.0) g/dL Albumin 2.3 L (3.5-5.0) g/dL Urine Color Urine Appearance Urine pH (5.0-8.0) Ur Specific [place] (1.005-1.025) Urine Protein (NEG-TRACE) MG/DL Urine Glucose (UA) (NEG) MG/DL Urine Ketones (NEG) MG/DL Urine Blood (NEG) Urine Nitrite (NEG) Ur Leukocyte Esterase (NEG) Urine RBC (0) /HPF Urine WBC (0-4) /HPF Ur Squamous Epith Cells /LPF Urine Bacteria /LPF Granular Casts /LPF Urine Opiates Screen (Not Detect) Ur Barbiturates Screen (Not Detect) Ur Phencyclidine Scrn (Not Detect) Ur Amphetamines Screen (Not Detect) U Benzodiazepines Scrn (Not Detect) Urine Cocaine Screen (Not Detect) U Marijuana (THC) Screen (Not Detect) Ethyl Alcohol mg/dL COVID-19 ([facility]) (Negative) COVID-19 Clin Com 08/01/20 08/01/20 08/01/20 Range/Units 19:32 19:32 19:32 WBC (4.8-10.8) X10*3/uL RBC (4.60-5.80) X10*6/uL Hgb (14.0-18.0) g/dl Hct (42-52) % MCV (80-98) fL MCH (27.0-33.0) pg MCHC (31.0-36.0) g/dl RDW (11.0-16.0) % Plt Count (160-400) X10*3/uL MPV (9.4-12.4) fL Immature Gran % (Auto) (0.0-0.4) % Neut % (Auto) (45-73) % Lymph % (Auto) (20-40) % Heard % (Auto) (2-11) % Eos % (Auto) (0-4) % Baso % (Auto) (0-2) % Lymph # (Auto) (1.2-4.9) X10*3/uL Heard # (Auto) (0.1-1.2) X10*3/uL Eos # (Auto) (0.0-0.4) X10*3/uL Baso # (Auto) (0.0-0.2) X10*3/uL Abs Immat Gran (auto) (0.00-0.03) X10*3/uL Absolute Neuts (auto) (2.0-8.3) X10*3/uL Absolute Nucleated RBC (0.0-0.012) X10*3/uL Nucleated RBC % (auto) (0.0-0.2) /100WBC Hold Blue Top Sodium (135-145) mmol/L Potassium (3.3-5.1) mmol/l Chloride (96-108) mmol/L Carbon Dioxide (22-29) mmol/L Anion Gap (12-20) BUN (9-16) mg/dL Creatinine (0.5-1.4) mg/dL Estim Creat Clear Calc Estimated GFR Random Glucose (60-115) mg/dL Calcium (8.4-10.2) mg/dL Magnesium (1.6-2.6) mg/dL Total Bilirubin (0.0-1.0) mg/dL Direct Bilirubin (0.0-0.5) mg/dL AST (5-37) U/L ALT (0-40) U/L Alkaline Phosphatase (39-117) U/L Troponin I High Sens 35.4 H (<3.5-35.0) ng/L B-Natriuretic Peptide 254 H (<100) pg/mL Total Protein (6.5-8.0) g/dL Albumin (3.5-5.0) g/dL Urine Color Urine Appearance Urine pH (5.0-8.0) Ur Specific [place] (1.005-1.025) Urine Protein (NEG-TRACE) MG/DL Urine Glucose (UA) (NEG) MG/DL Urine Ketones (NEG) MG/DL Urine Blood (NEG) Urine Nitrite (NEG) Ur Leukocyte Esterase (NEG) Urine RBC (0) /HPF Urine WBC (0-4) /HPF Ur Squamous Epith Cells /LPF Urine Bacteria /LPF Granular Casts /LPF Urine Opiates Screen (Not Detect) Ur Barbiturates Screen (Not Detect) Ur Phencyclidine Scrn (Not Detect) Ur Amphetamines Screen (Not Detect) U Benzodiazepines Scrn (Not Detect) Urine Cocaine Screen (Not Detect) U Marijuana (THC) Screen (Not Detect) Ethyl Alcohol < 10 mg/dL COVID-19 ([facility]) Negative (Negative) COVID-19 Clin Com See Note 08/01/20 08/01/20 08/01/20 Range/Units 21:57 21:57 21:57 WBC (4.8-10.8) X10*3/uL RBC (4.60-5.80) X10*6/uL Hgb (14.0-18.0) g/dl Hct (42-52) % MCV (80-98) fL MCH (27.0-33.0) pg MCHC (31.0-36.0) g/dl RDW (11.0-16.0) % Plt Count (160-400) X10*3/uL MPV (9.4-12.4) fL Immature Gran % (Auto) (0.0-0.4) % Neut % (Auto) (45-73) % Lymph % (Auto) (20-40) % Heard % (Auto) (2-11) % Eos % (Auto) (0-4) % Baso % (Auto) (0-2) % Lymph # (Auto) (1.2-4.9) X10*3/uL Heard # (Auto) (0.1-1.2) X10*3/uL Eos # (Auto) (0.0-0.4) X10*3/uL Baso # (Auto) (0.0-0.2) X10*3/uL Abs Immat Gran (auto) (0.00-0.03) X10*3/uL Absolute Neuts (auto) (2.0-8.3) X10*3/uL Absolute Nucleated RBC (0.0-0.012) X10*3/uL Nucleated RBC % (auto) (0.0-0.2) /100WBC Hold Blue Top Sodium (135-145) mmol/L Potassium (3.3-5.1) mmol/l Chloride (96-108) mmol/L Carbon Dioxide (22-29) mmol/L Anion Gap (12-20) BUN (9-16) mg/dL Creatinine (0.5-1.4) mg/dL Estim Creat Clear Calc Estimated GFR Random Glucose (60-115) mg/dL Calcium (8.4-10.2) mg/dL Magnesium (1.6-2.6) mg/dL Total Bilirubin (0.0-1.0) mg/dL Direct Bilirubin (0.0-0.5) mg/dL AST (5-37) U/L ALT (0-40) U/L Alkaline Phosphatase (39-117) U/L Troponin I High Sens 36.5 H (<3.5-35.0) ng/L B-Natriuretic Peptide (<100) pg/mL Total Protein (6.5-8.0) g/dL Albumin (3.5-5.0) g/dL Urine Color YELLOW Urine Appearance CLEAR Urine pH 5.5 (5.0-8.0) Ur Specific [place] 1.025 (1.005-1.025) Urine Protein 3+ H (NEG-TRACE) MG/DL Urine Glucose (UA) 500 H (NEG) MG/DL Urine Ketones NEG (NEG) MG/DL Urine Blood 1+ H (NEG) Urine Nitrite NEG (NEG) Ur Leukocyte Esterase NEG (NEG) Urine RBC 0-2 (0) /HPF Urine WBC 0-2 (0-4) /HPF Ur Squamous Epith Cells TRACE /LPF Urine Bacteria TRACE /LPF Granular Casts 0-2 /LPF Urine Opiates Screen POSITIVE H (Not Detect) Ur Barbiturates Screen Not Detected (Not Detect) Ur Phencyclidine Scrn Not Detected (Not Detect) Ur Amphetamines Screen Not Detected (Not Detect) U Benzodiazepines Scrn Not Detected (Not Detect) Urine Cocaine Screen Not Detected (Not Detect) U Marijuana (THC) Screen Not Detected (Not Detect) Ethyl Alcohol mg/dL COVID-19 ([facility]) (Negative) COVID-19 Clin Com ECG Data Attestation: I personally reviewed and interpreted this ECG as follows: Prior ECG tracings: available for review (04/10/2020 no acute changes on comparison) Interpretation: Normal sinus rhythm, HR-95, no evidence of acute ischemia, AZ/QRS/QTC are within limits. Discharge Plan Discharge Clinical Impression: NASH (dyspnea on exertion) Hypertensive CKD (chronic kidney disease) Qualifiers: Chronic kidney disease stage: unspecified stage Qualified Code(s): I12.9 - Hypertensive chronic kidney disease with stage 1 through stage 4 chronic kidney disease, or unspecified chronic kidney disease Patient Disposition: Elopement Prescriptions: No Action labetalol 100 mg tablet 100 mg PO BID Qty: 30 RF: 0 oxycodone 20 mg Tablet 40 mg PO Q4H PRN (Reason: Pain) RF: 0
[2020-08-01 21:51] VITALS: BP 185/77; PULSE 96; RESP 19; TEMP 36.6; O2SAT 100
[2020-08-01] MEDS: Albuterol Sulfate 90 MCG 8 GM INHALER 4 PUFF INHALE (22:00)
[2020-08-01 22:01] VITALS: BP 185/77; PULSE 96; RESP 19; TEMP 36.6; O2SAT 100
[2020-08-01 22:06] LABS: Glucose Urine UA 500 MG/DL (NEG); Leukocyte Esterase Urine NEG (NEG); Nitrite Urine NEG (NEG); PH 5.5 (5.0-8.0); Specific Gravity - Urine 1.025 (1.005-1.025); Urine Blood 1+ (NEG); Urine Ketones NEG (NEG); Urine Protein 3+ MG/DL (NEG-TRACE)
[2020-08-01 22:08] LABS: Appearance Urine CLEAR; Color Urine YELLOW
[2020-08-01 22:27] LABS: Bacteria Urine TRACE /LPF; Granular Casts Urine 0-2 /LPF; RBC Urine 0-2 /HPF (0); Squamous Epithelial Cell Urine TRACE /LPF; WBC Urine 0-2 /HPF (0-4)
[2020-08-01 22:33] LABS: Amphetamine Screen Urine Not Detected (Not Detect); Barbiturates, Urine Not Detected (Not Detect); Benzodiazepines Screen Urine Not Detected (Not Detect); Cannabinoid Screen Urine Not Detected (Not Detect); Cocaine Screen Urine Not Detected (Not Detect); Opiate Screen Urine POSITIVE (Not Detect); Phencyclidine Screen Urine Not Detected (Not Detect)
[2020-08-01 22:40] VITALS: BP 185/77; PULSE 96
[2020-08-01] MEDS: Labetalol HCL 100 MG TABLET 50 MG PO (22:40)
--- NOTE | 2020-08-01 22:41 | PC.NURSE ---
PATIENT MEDICATED PER EMAR NOTED.
[2020-08-01 22:44] LABS: Troponin-I High Sensitivity 36.5 ng/L (<3.5-35.0)
[2020-08-01 23:39] VITALS: BP 132/64; RESP 15; O2SAT 98
--- NOTE | 2020-08-01 23:40 | PC.NURSE ---
Patient blood pressure repeated. patient agitated that he has been waiting for a blood pressure for 2 hrs. Patient is leaving without signing d/c papers. Patient's blood pressure down to 132 systolic from 185
== END 2020-08-02 | disposition left against medical advice (07) ==
PROVIDERS: Physician Assistant; Emergency Provider Emergency Medicine
DX: R06.00 Dyspnea, unspecified (principal); Z20.822 Contact with and (suspected) exposure to COVID-19; E11.22 Type 2 diabetes mellitus with diabetic chronic kidney disease; I12.9 Hypertensive chronic kidney disease with stage 1 through stage 4 chronic kidney disease, or unspecified chronic kidney disease; N18.9 Chronic kidney disease, unspecified; F11.10 Opioid abuse, uncomplicated
CPT/HCPCS: 36415; 71046; 80048; 80076; 80307; 80320; 81001; 83735; 83880; 84484; 85025; 87635; 93005; 99284

== ENCOUNTER 2020-08-03 12:11 | Emergency (ER) | payer OTHER, SELFPAY ==
[2020-08-03 12:25] VITALS: BP 143/72; PULSE 111; RESP 18; TEMP 36.6; O2SAT 98; BMI 37.2
--- NOTE | 2020-08-03 13:15 | ED.GENADULT ---
HPI - General Adult General Chief complaint: General Medical Stated complaint: pain Time Seen by Provider: 08/03/20 13:15 Source: patient Mode of arrival: ambulatory Limitations: no limitations History of Present Illness MD complaint: phantom pain Onset (ago): day(s) (2) Location: left and lower extremity Radiation: non-radiation Severity: severe and similar to prior episodes Quality: stabbing Pain Consistency: constant Relieving factors: none Exacerbating factors: none Associated symptoms: denies other symptoms Treatments prior to arrival: other (takes his oxycodone as prescribed) Related Data Home Medications Medication Instructions Recorded Confirmed oxycodone 40 mg PO Q4H PRN 06/08/20 06/08/20 Previous Rx's Medication Instructions Recorded labetalol 100 mg PO BID #30 tab 05/02/20 Allergies Allergy/AdvReac Type Severity Reaction Status Date / Time clindamycin [CLINDAMYCIN] Allergy Intermediate RASH ALL Verified 08/01/20 19:09 OVER SKIN ON BACK daptomycin [DAPTOMYCIN] Allergy Mild UNKNOWN Verified 08/01/20 19:09 doxycycline [DOXYCYCLINE] Allergy Mild HIVES Verified 08/01/20 19:09 vancomycin [VANCOMYCIN] Allergy Mild UNKNOWN Verified 08/01/20 19:09 amoxicillin Allergy Unknown Unknown Verified 08/01/20 19:09 cephalexin [From Keflex] Allergy Unknown HIVES Verified 08/01/20 19:09 penicillin V Allergy Unknown Unknown Verified 08/01/20 19:09 Sulfa (Sulfonamide Allergy Unknown Unknown Verified 08/01/20 19:09 Antibiotics) sulfamethoxazole Allergy Unknown HIVES Verified 08/01/20 19:09 [From Bactrim] trimethoprim [From Bactrim] Allergy Unknown HIVES Verified 08/01/20 19:09 Review of Systems Review of Systems: Constitutional : No Fever, No Chills ENT/Mouth : No Ear Pain, No Hoarseness, No sore throat Eyes: No Eye Pain, No Swelling, No Redness, No Foreign Body Cardiovascular : No Chest Pain, No SOB Respiratory : No Cough, No Dyspnea Gastrointestinal : No Nausea, No Vomiting, No Diarrhea, No abdominal Pain Genitourinary : No Dysuria, No Hematuria Musculoskeletal : positive joint pain, No Myalgias, No Joint Swelling Skin : No Skin lacerations, No rash Neuro : No Weakness, No Numbness, No Loss of Consciousness, No Dizziness, No Headache Psych : No Anxiety/Panic, No Depression Heme/Lymph: no easy bruising, no Lymphadenopathy Endocrine : No Polyuria, No Polydipsia All other systems reviewed and are negative [facility] Past Medical History Attestation statement: The following information was validated with the patient. Medical History Amputated below knee Diabetes Hypertension Opiate abuse, episodic Surgical History History of shoulder surgery Social History Social History Alcohol intake: unknown Smoking Status: Unknown if ever smoked Substance Use Type: Opiates Advance Directives: No Advance Directives Information Provided: No Physical Exam Vital Signs: Vital Signs: Last Vital Signs Temp 97.9 F 08/03/20 12:25 Pulse 111 H 08/03/20 12:25 Resp 18 08/03/20 12:25 BP 143/72 H 08/03/20 12:25 Pulse Ox 98 08/03/20 12:25 Body Mass Index 37.2 Appearance: Alert. Oriented X3. No acute distress. Eyes: Pupils equal, round and reactive to light. ENT: Pharynx normal. Neck: Normal inspection. Neck supple. CVS: Normal heart rate and rhythm. Pulses normal. Respiratory: No respiratory distress. Breath sounds normal. Abdomen: Soft and nontender. Skin: Skin warm and dry. Normal skin color. Normal skin turgor. Extremities: No lower extremity edema. No calf ttp no signs infection at amputation sites Neuro: Oriented X 3. No motor deficit. No sensory deficit. Medical Decision Making MDM Narrative Medical decision making narrative: chronic phantom limb pain no trauma no signs of infection - will dose IM narcotics and recheck Discharge Plan Discharge Clinical Impression: Pain, phantom limb Patient Disposition: Home, Self-Care Instructions: Chronic Pain (ED) Additional Instructions: return to ED for any worsening symptoms or concerns Prescriptions: No Action labetalol 100 mg tablet 100 mg PO BID Qty: 30 RF: 0 oxycodone 20 mg Tablet 40 mg PO Q4H PRN (Reason: Pain) RF: 0
[2020-08-03] MEDS: HYDROmorphone HCl 2 MG/ML VIAL 4 MG IM (13:31)
[2020-08-03 13:53] VITALS: BP 141/75; PULSE 98; RESP 16; TEMP 36.2; O2SAT 98
== END 2020-08-03 13:50 | disposition home or self-care (01) ==
PROVIDERS: Emergency Provider Emergency Medicine
DX: G54.6 Phantom limb syndrome with pain (principal); Z79.899 Other long term (current) drug therapy
CPT/HCPCS: 96372; 99283; 99284; J1170

== ENCOUNTER 2020-08-03 23:52 | Emergency (ER) | payer OTHER, SELFPAY ==
--- NOTE | 2020-08-04 00:19 | ED.EXTPRO ---
HPI - Extremity Problem General Stated complaint: Phantom Pain Time Seen by Provider: 08/04/20 00:13 Source: patient Mode of arrival: ambulatory Limitations: no limitations History of Present Illness HPI Narrative: Patient with frequent ED visits bilateral below-knee amputation gets phantom pain in left leg off and on on oxycodone but since last night pain is getting worse no signs of infection patient had the last surgery 3 years ago no swelling of the stump ambulatory with prosthesis MD Complaint: extremity pain Onset (ago): hour(s) Location: left Quality: dull Radiation: none Related Data Home Medications Medication Instructions Recorded Confirmed oxycodone 40 mg PO Q4H PRN 06/08/20 06/08/20 Previous Rx's Medication Instructions Recorded labetalol 100 mg PO BID #30 tab 05/02/20 Allergies Allergy/AdvReac Type Severity Reaction Status Date / Time clindamycin [CLINDAMYCIN] Allergy Intermediate RASH ALL Verified 08/01/20 19:09 OVER SKIN ON BACK daptomycin [DAPTOMYCIN] Allergy Mild UNKNOWN Verified 08/01/20 19:09 doxycycline [DOXYCYCLINE] Allergy Mild HIVES Verified 08/01/20 19:09 vancomycin [VANCOMYCIN] Allergy Mild UNKNOWN Verified 08/01/20 19:09 amoxicillin Allergy Unknown Unknown Verified 08/01/20 19:09 cephalexin [From Keflex] Allergy Unknown HIVES Verified 08/01/20 19:09 penicillin V Allergy Unknown Unknown Verified 08/01/20 19:09 Sulfa (Sulfonamide Allergy Unknown Unknown Verified 08/01/20 19:09 Antibiotics) sulfamethoxazole Allergy Unknown HIVES Verified 08/01/20 19:09 [From Bactrim] trimethoprim [From Bactrim] Allergy Unknown HIVES Verified 08/01/20 19:09 Review of Systems Review of Systems: Yes all other systems are reviewed and are negative PMFSH Past Medical History Medical History Amputated below knee Diabetes Hypertension Opiate abuse, episodic Surgical History History of shoulder surgery Social History Social History Alcohol intake: unknown Smoking Status: Unknown if ever smoked Substance Use Type: Opiates Advance Directives: No Physical Exam Const: General: healthy appearing, comfortable and acute distress Nutritional Appearance: average body habitus Orientation/consciousness: patient oriented x3 HENMT: Head: Yes normocephalic and Yes atraumatic Eyes: General: appearance normal, both eyes and all related structures Neck: Neck: Yes full ROM Resp: Effort & Inspection: normal respiratory effort and able to speak in complete sentences Cardio: Rate: regular rate Rhythm: regular rhythm Heart sounds: S1 normal heart sound present and S2 normal heart sound present Neuro: General: patient oriented x3 and no focal motor deficits Extrem: Other: Left leg stump healthy-looking no skin change no open wound no tenderness on palpation skin is normal color normal temperature no signs of infection MDM - Extremity (Nontraumatic) MDM Narrative Medical decision making narrative: Patient with phantom pain in left BKA no signs of infection already has pain medications at home will discharge him home after Dilaudid Discharge Plan Discharge Clinical Impression: Phantom pain after amputation of lower extremity Patient Disposition: Home, Self-Care Instructions: Complex Regional Pain Syndrome (DC) Additional Instructions: Continue taking your pain medications follow-up with PCP Prescriptions: No Action labetalol 100 mg tablet 100 mg PO BID Qty: 30 RF: 0 oxycodone 20 mg Tablet 40 mg PO Q4H PRN (Reason: Pain) RF: 0
[2020-08-04] MEDS: HYDROmorphone HCl 2 MG/ML VIAL 4 MG IM (00:31)
[2020-08-04 00:32] VITALS: BP 146/76; PULSE 112; RESP 18; TEMP 36.6; BMI 30.8
== END 2020-08-04 00:46 | disposition home or self-care (01) ==
LOC: HO.ED 08-04 00:22
PROVIDERS: Emergency Provider Internal Medicine
DX: G54.6 Phantom limb syndrome with pain (principal); I10 Essential (primary) hypertension; Z79.899 Other long term (current) drug therapy
CPT/HCPCS: 96372; 99283; 99284; J1170

== ENCOUNTER 2020-08-10 02:42 | Emergency (ER) | payer OTHER, SELFPAY ==
[2020-08-10 02:52] VITALS: BP 201/98; PULSE 91; RESP 18; TEMP 36.1; O2SAT 98; BMI 37.2
--- NOTE | 2020-08-10 03:03 | ED.GENADULT ---
HPI - General Adult General Chief complaint: General Medical Stated complaint: Phantom pain Time Seen by Provider: 08/10/20 02:55 Source: patient Mode of arrival: ambulatory Limitations: no limitations History of Present Illness HPI narrative: 45 years old male history of complicated diabetes has bilateral below-knee amputation as a result, patient Periodically gets phantom pain to either of the stumps. Patient started to have his usual phantom pain to the right leg radiating to his right ankle patient appear in severe pain and blood pressure is elevated. Patient typically when he come to the Emergency Room get treated with 4 mg of Dilaudid intramuscularly and it usually work. Patient also recently has adjustment to the right prosthesis. Patient otherwise has no fever or chills. Related Data Home Medications Medication Instructions Recorded Confirmed oxycodone 40 mg PO Q4H PRN 06/08/20 06/08/20 Previous Rx's Medication Instructions Recorded labetalol 100 mg PO BID #30 tab 05/02/20 Allergies Allergy/AdvReac Type Severity Reaction Status Date / Time clindamycin [CLINDAMYCIN] Allergy Intermediate RASH ALL Verified 08/01/20 19:09 OVER SKIN ON BACK daptomycin [DAPTOMYCIN] Allergy Mild UNKNOWN Verified 08/01/20 19:09 doxycycline [DOXYCYCLINE] Allergy Mild HIVES Verified 08/01/20 19:09 vancomycin [VANCOMYCIN] Allergy Mild UNKNOWN Verified 08/01/20 19:09 amoxicillin Allergy Unknown Unknown Verified 08/01/20 19:09 cephalexin [From Keflex] Allergy Unknown HIVES Verified 08/01/20 19:09 penicillin V Allergy Unknown Unknown Verified 08/01/20 19:09 Sulfa (Sulfonamide Allergy Unknown Unknown Verified 08/01/20 19:09 Antibiotics) sulfamethoxazole Allergy Unknown HIVES Verified 08/01/20 19:09 [From Bactrim] trimethoprim [From Bactrim] Allergy Unknown HIVES Verified 08/01/20 19:09 Review of Systems Review of Systems: All other systems are reviewed and are negative Constitutional: Reports as per HPI and Reports no additional constitutional complaints Eyes: Reports as per HPI and Reports no additional eye complaints Reports system reviewed and no additional complaints, except as documented Cardiovascular: Reports as per HPI and Reports no additional cardiovascular complaints Respiratory: Reports as per HPI and Reports no additional respiratory complaints Gastrointestinal: Reports as per HPI and Reports no additional gastrointestinal complaints Genitourinary: Reports no additional female genitourinary complaints Musculoskeletal: Reports no additional musculoskeletal complaints Skin/Breast: Reports system reviewed and no additional complaints, except as docu Psychiatric: Reports no additional psychiatric complaints Endocrine: Reports no additional endocrine complaints Hematologic/Lymphatic: Reports no additional hematologic/lymphatic complaints Allergic/Immunologic: Reports no additional allergic/immunologic complaints Reports system reviewed and no additional complaints, except as documented and Reports Abnormal speech present [facility] Past Medical History Medical History Amputated below knee Diabetes Hypertension Opiate abuse, episodic Surgical History History of shoulder surgery Social History Social History Alcohol intake: unknown Smoking Status: Unknown if ever smoked Substance Use Type: Opiates Advance Directives: No Physical Exam Vital Signs: Vital Signs: Last Vital Signs Temp 97.0 F 08/10/20 02:52 Pulse 91 08/10/20 02:52 Resp 18 08/10/20 02:52 BP 201/98 H 08/10/20 02:52 Pulse Ox 98 08/10/20 02:52 Body Mass Index 37.2 Vital signs have been reviewed as normal and appeared to be correct. Blood pressure is high. Heart rate normal. Respiration rate normal. Temperature normal. Oxygen saturation normal. Appearance: Alert. Oriented X3. acute distress due to pain in the right lower extremity. Head: Normal external exam. Normocephalic. Atraumatic. No Rizo signs noted. No raccoon eyes noted Eyes: PERRLA. EOMI. Conjunctiva and sclera normal. Eyelids normal. ENT: EAC normal. TM's Normal. Pharynx normal. Uvula midline. Moist mucous membranes. No trismus noted. No drooling noted. No muffled voice noted. Neck: Normal inspection. Neck supple. FROM. No adenopathy. Thyroid Normal. No meningeal signs. No neck mass noted. CVS: Normal heart rate and rhythm. Heart sound normal. No murmurs noted. Pulses normal throughout. Respiratory: No respiratory distress. Painless inspiration. Breath sounds normal. No wheezes/rales/rhonchi noted. Chest nontender. No accessory muscle usage noted or decreased air movement noted. Abdomen: Soft and nontender. Bowel sounds normal in all 4 quadrants. No distention noted. No organomegaly noted. No visible injury noted. Back: No CVA tenderness. Full range of motion noted. Skin: Skin warm and dry. Normal skin color. Normal skin turgor. No rashes/lesions/lacerations noted. Extremities: Status post bilateral blue knee amputations, stump appear intact with no redness or hotness or tenderness, no discharge from the stump. Neuro: Oriented X 3. No motor deficit. No sensory deficit. Reflexes normal. Course Course Course Narrative: Assessment and plan. This is a 45-year-old male with bilateral below-knee amputation secondary to complicated diabetes sporadically get phantom pain in the lower extremities, due to recent adjustment of the right prosthesis he has been having the phantom pain in the right leg radiating to the right ankle. Patient received 4 mg of Dilaudid IM which she usually gets when he have the pain, patient now is more comfortable, blood pressure is normalizing. Discharge Plan Discharge Clinical Impression: Phantom pain after amputation of lower extremity Patient Disposition: Home, Self-Care Instructions: Complex Regional Pain Syndrome (DC) Prescriptions: No Action labetalol 100 mg tablet 100 mg PO BID Qty: 30 RF: 0 oxycodone 20 mg Tablet 40 mg PO Q4H PRN (Reason: Pain) RF: 0 Referrals: Physician,Unknown [Primary Care Provider] - 2 days
[2020-08-10 03:11] VITALS: RESP 16
[2020-08-10] MEDS: HYDROmorphone HCl 2 MG/ML VIAL 4 MG IM (03:11)
[2020-08-10 03:49] VITALS: BP 156/79; PULSE 89; RESP 16; O2SAT 98
== END 2020-08-10 03:52 | disposition home or self-care (01) ==
PROVIDERS: Emergency Provider Emergency Medicine
DX: G54.6 Phantom limb syndrome with pain (principal); M25.571 Pain in right ankle and joints of right foot; I10 Essential (primary) hypertension; F11.10 Opioid abuse, uncomplicated; Z79.899 Other long term (current) drug therapy
CPT/HCPCS: 96372; 99284; J1170

== ENCOUNTER 2020-08-20 17:43 | Emergency (ER) | payer OTHER, SELFPAY ==
--- NOTE | ~2020-08-20 | XR_ITS ---
EXAMINATION: XR CHEST CLINICAL INFORMATION: Shortness of breath and dizziness COMPARISON: 08/01/2020 and priors TECHNIQUE: 2 views of the chest were obtained. FINDINGS: Low lung volumes. No focal pneumonia. No effusion or pneumothorax. Chronic bronchial wall thickening. Grossly normal heart and mediastinum. No acute pulmonary edema. Nonobstructive gas pattern. XR/XR chest 2V IMPRESSION: Low lung volumes
--- NOTE | ~2020-08-20 | CT_ITS ---
EXAMINATION: CT HEAD WITHOUT CONTRAST CLINICAL INFORMATION: Dizziness shortness of breath and left arm symptoms COMPARISON: 05/02/2020 and prior TECHNIQUE: Contiguous axial imaging was performed from the skull base to vertex without intravenous administration of contrast. This CT examination was performed using dose optimization techniques as appropriate, variously including the following: *Automated exposure control *Adjustment of mA and/or kV according to patient size (this includes techniques or standardized protocols for targeted exams where dose is matched to indication/reason for exam; i.e. extremities or head) *Use of iterative reconstruction technique DLP: 887 mGy-cm FINDINGS: There is no evidence of acute intracranial hemorrhage or territorial infarction. No abnormal mass effect or midline shift is seen. Coleman to white matter differentiation is well preserved. No extra-axial fluid collections are identified. The ventricles are normal in size. There is no abnormal attenuation within the brain parenchyma. The osseous structures and soft tissues are normal. The mastoid air cells and visualized portions of the paranasal sinuses are well aerated. CT/CT head/brain wo con IMPRESSION: No acute intracranial pathology.
[2020-08-20 17:59] VITALS: BP 187/132; PULSE 108; RESP 18; TEMP 36.8; O2SAT 98; BMI 37.2
--- NOTE | 2020-08-20 18:04 | ECG_ITS ---
Test Reason : CHEST PAIN Blood Pressure : / mmHG Vent. Rate : 104 BPM Atrial Rate : 104 BPM P-R Int : 150 ms QRS Dur : 078 ms QT Int : 328 ms P-R-T Axes : 041 032 199 degrees QTc Int : 431 ms Sinus tachycardia Left ventricular hypertrophy with repolarization abnormality Abnormal ECG When compared with ECG of 01-AUG-2020 21:42, No significant change was found Referred By: Lona Ceja Electronically Signed By:PADMAJA MANCILLA
--- NOTE | 2020-08-20 18:07 | ED.DIZZY ---
HPI - Dizziness General Chief Complaint: Dizziness Stated Complaint: dizzy, left arm pain Time Seen by Provider: 08/20/20 17:48 Source: patient Mode of arrival: ambulatory Limitations: no limitations History of Present Illness HPI Narrative: 45yoM c PMHx of diabetes, hypertension and bilateral [id number] amputations with episodic opiate abuse presenting to the ED via EMS with complaints of feeling SOB after waking up at 4pm this afternoon then he still went to take a shower when he started to have associated dizziness although he was able to get out of the shower and went to open the Fridge when he reports he turned pallor and his shortness of breath worsened at this time he also started to have and left arm started to tingling and shaking uncontrollably and his left side of his jaw turned sideways and I was unable to speak properly, per patient. Patient reports he took his blood pressure medication this morning. Patient reports Denies any changes in vision, nausea/vomiting, jaw pain, numbness, chest pain, palpitations, extremity edema, any symptoms or any other symptoms complaints or concerns at this time. MD elicited complaint: dizziness Onset (ago): hour(s) (Since 16:00 prior to arrival) Timing: gradual onset Severity: moderate Description: lightheadedness History of similar symptoms: No Exacerbating factors: nothing Relieving factors: nothing Related Data Home Medications Medication Instructions Recorded Confirmed oxycodone 40 mg PO Q4H PRN 06/08/20 06/08/20 Previous Rx's Medication Instructions Recorded labetalol 100 mg PO BID #30 tab 05/02/20 Allergies Allergy/AdvReac Type Severity Reaction Status Date / Time clindamycin [CLINDAMYCIN] Allergy Intermediate RASH ALL Verified 08/01/20 19:09 OVER SKIN ON BACK daptomycin [DAPTOMYCIN] Allergy Mild UNKNOWN Verified 08/01/20 19:09 doxycycline [DOXYCYCLINE] Allergy Mild HIVES Verified 08/01/20 19:09 vancomycin [VANCOMYCIN] Allergy Mild UNKNOWN Verified 08/01/20 19:09 amoxicillin Allergy Unknown Unknown Verified 08/01/20 19:09 cephalexin [From Keflex] Allergy Unknown HIVES Verified 08/01/20 19:09 penicillin V Allergy Unknown Unknown Verified 08/01/20 19:09 Sulfa (Sulfonamide Allergy Unknown Unknown Verified 08/01/20 19:09 Antibiotics) sulfamethoxazole Allergy Unknown HIVES Verified 08/01/20 19:09 [From Bactrim] trimethoprim [From Bactrim] Allergy Unknown HIVES Verified 08/01/20 19:09 Review of Systems Review of Systems: Constitutional : No Fever, No Chills, No Night Sweats, No Fatigue, No Malaise ENT/Mouth : No Ear Pain, No Nasal Congestion, No Sinus Pain, No sore throat, No Rhinorrhea Eyes: No Eye Pain, No Swelling, No Redness, No Foreign Body, No Discharge, No Vision Changes Cardiovascular : + SOB, No Chest Pain, No Dyspnea on Exertion, No Orthopnea, No Palpitations Respiratory : No Cough, No Sputum, No Wheezing, No Dyspnea Gastrointestinal : No Nausea, No Vomiting, No Diarrhea, No Constipation, No abdominal Pain, No Hematochezia, No Melena Genitourinary : No Dysuria, No Urinary Frequency, No Urinary Incontinence, No Urgency, No Flank Pain Musculoskeletal : No joint pain, No Myalgias Skin : No lacerations Neuro : + Numbness, + Paresthesias, + Tremors/shaking to left arm, + Dizziness, + Headache, No Focal weakness, No Loss of Consciousness Yes all other systems are reviewed and are negative [facility] Past Medical History Attestation statement: The following information was validated with the patient. Medical History Amputated below knee Diabetes Hypertension Opiate abuse, episodic Surgical History History of shoulder surgery Social History Social History Alcohol intake: never Smoking Status: Unknown if ever smoked Smoked in Last 30 Days: No Use of substances other than those prescribed or required for medical reasons: No Substance Use Type: Opiates Advance Directives: No Advance Directives Information Provided: No Physical Exam Vital Signs: Vital Signs: Last Vital Signs Temp 98.3 F 08/20/20 17:59 Pulse 108 H 08/20/20 17:59 Resp 18 08/20/20 17:59 BP 187/132 H 08/20/20 17:59 Pulse Ox 98 08/20/20 17:59 Body Mass Index 37.2 Vital signs have been reviewed as normal and appeared to be correct. Blood pressure hypertensive. Heart rate tachycardic. Respiration rate normal. Temperature normal. Oxygen saturation normal. Appearance: Alert. Oriented X3. No acute distress. Head: Normal external exam. Normocephalic. Atraumatic. Able to rotate head bilaterally. Eyes: PERRLA. EOMI. No nystagmus noted. Conjunctiva and sclera normal. Eyelids normal. Corneal reflex normal. ENT: EAC normal. TM's Normal. Hearing normal. Pharynx normal. Uvula midline. tongue midline. Moist mucous membranes. No trismus noted. No drooling noted. No muffled voice noted. No nystagmus noted. Neck: Normal inspection. Neck supple. FROM. No adenopathy. Trachea midline. Thyroid Normal. No meningeal signs. No neck mass noted. CVS: Normal heart rate and rhythm. Heart sound normal. No murmurs noted. Pulses normal throughout. Respiratory: No respiratory distress. Painless inspiration. Breath sounds normal. No wheezes/rales/rhonchi noted. Chest nontender. No accessory muscle usage noted or decreased air movement noted. Abdomen: Soft and nontender. Bowel sounds normal in all 4 quadrants. No distention noted. No organomegaly noted. No visible injury noted. Back: No CVA tenderness. Full range of motion noted. Skin: Skin warm and dry. Normal skin color. Normal skin turgor. No rashes/lesions/lacerations noted. Extremities: Status post bilateral [id number] amputations, stumps appear intact with no redness or hotness or tenderness. No discharge from the stumps. Otherwise bilateral upper extremities Extremities exhibit normal range of motion and nontender. Able to shrug shoulders bilaterally and keep up against resistance. Neuro: Oriented X 3. No motor deficit. No sensory deficit. Reflexes normal. Moving all extremities. No focal motor deficits. Cranial nerves II-XI intact bilaterally. Facial strength normal. Normal cognition. Speech normal. Gait normal. Strength 5/5 throughout. No pronator drift. No tremor noted. No fasciculations noted. No rigidity noted. Muscle tone normal throughout. No asterixis noted. [id number]-jb-[id number] test normal. Hand drop from overhead Misses face. NIHSS score 0. NIH Stroke Scale Internal: Initial- Upon Arrival Time: 18:05 Level of Consciousness: Alert Level of Consciousness Questions: Answers both questions correctly Level of Consciousness Commands: Performs both tasks correctly Best Gaze: Normal Visual: No visual loss Facial Palsy: Normal Motor Arm (Right): No drift Motor Arm (Left): No drift Motor Leg (Right): No drift Motor Leg (Left): No drift Limb Ataxia: Absent Sensory: Normal Best Language: No aphasia Dysarthia: Normal Extinction and Inattention: No abnormality Score: 0 Course Course Course Narrative: 18:05pm - 45yoM c PMHx of DM, HTN and bilateral [id number]-[id number] amputations with episodic opiate abuse presenting to the ED via EMS c c/o SOB,dizziness, headache, left arm tingling/sking and left jaw turning sideways unable to speak properly 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 - Patient is noted to be hypertensive and tachycardic otherwise all other vitals are within normal limits patient is afebrile and not tachycardic and respirations are normal. On exam patient is alert and oriented x3. Patient was able to get off of the EMS stretcher and walk onto the bed with a normal steady gait. No focal neuro deficits noted. NIH SS score is 0 at this time. No tPA indicated at this time as patient has non disabling symptoms at this time. - Concern for Seizure vs PE vs ACS vs PNA vs COVID vs orthostatic hypotension. Less concern for CVA as patient has a normal neuro exam no focal neuro deficits and NIHSS score is 0 at this time. - Plan: Labs, CT scan of brain, EKG provide 10 mg of hydralazine as patient reports he cannot tolerate labetalol then re-evaluate. Reevaluation(s) Reevaluation #1: - EKG is sinus tachycardia with left ventricular hypertrophy similar when compared to prior EKG no acute ischemic changes noted today. - sign out to michelle Hernandez MD pending labs, chest x-ray, CT scan of brain and re-evaluation of the patient's blood pressure Time: 18:57 [facility] - Dizziness Medical Records Attestation: I reviewed the patient's medical records. Lab Data Attestation: I reviewed the patient's lab results. Result diagrams: 08/20/20 18:20 08/20/20 18:20 Labs: Lab Results 08/20/20 08/20/20 Range/Units 18:20 18:20 WBC 7.9 (4.8-10.8) X10*3/uL RBC 4.13 L (4.60-5.80) X10*6/uL Hgb 11.8 L (14.0-18.0) g/dl Hct 36.4 L (42-52) % MCV 88.1 (80-98) fL MCH 28.6 (27.0-33.0) pg MCHC 32.4 (31.0-36.0) g/dl RDW 13.4 (11.0-16.0) % Plt Count 126 L (160-400) X10*3/uL MPV Not Reportable Immature Gran % (Auto) 0.3 (0.0-0.4) % Neut % (Auto) 56.6 (45-73) % Lymph % (Auto) 31.3 (20-40) % [place] % (Auto) 10.7 (2-11) % Eos % (Auto) 0.8 (0-4) % Baso % (Auto) 0.3 (0-2) % Lymph # (Auto) 2.5 (1.2-4.9) X10*3/uL [place] # (Auto) 0.9 (0.1-1.2) X10*3/uL Eos # (Auto) 0.1 (0.0-0.4) X10*3/uL Baso # (Auto) 0.0 (0.0-0.2) X10*3/uL Abs Immat Gran (auto) 0.02 (0.00-0.03) X10*3/uL Absolute Neuts (auto) 4.5 (2.0-8.3) X10*3/uL Absolute Nucleated RBC 0.000 (0.0-0.012) X10*3/uL Nucleated RBC % (auto) 0.0 (0.0-0.2) /100WBC Total Creatine Kinase 100 (38-174) U/L ECG Data Attestation: I personally reviewed and interpreted this ECG as follows: ECG interpretation date: 08/20/20 ECG interpretation time: 18:00 Interpretation: Sinus tachycardia with ventricular rate of 104 with left ventricular hypertrophy with repolarization abnormality no acute ischemic changes noted and similar when compared to prior EKG on 08/01/2020. Critical Care Time Critical Care Time Critical Care Time: Yes Total Critical Care Time: 60 Attestation: I personally attest to this time spent taking care of the patient Discharge Plan Discharge Clinical Impression: Hypertensive urgency Prescriptions: No Action labetalol 100 mg tablet 100 mg PO BID Qty: 30 RF: 0 oxycodone 20 mg Tablet 40 mg PO Q4H PRN (Reason: Pain) RF: 0
--- NOTE | 2020-08-20 18:27 | PC.NURSE ---
pt ambulated from ems stretcher to ed stretcher with steady gait-bilat bka. iv placed. labs sent.
[2020-08-20 18:29] LABS: Basophils Percent Auto 0.3 % (0-2); Eosinophils Absolute Auto 0.1 X10*3/uL (0.0-0.4); Eosinophils Percent Auto 0.8 % (0-4); Hemoglobin 11.8 g/dl (14.0-18.0); MANUAL DIFF FLAG SCAN; Red Cell Distribution Width 13.4 % (11.0-16.0); SCAN SMEAR FLAG 1
[2020-08-20 18:31] LABS: Hematocrit 36.4 % (42-52); Imm Gran Abs Auto 0.02 X10*3/uL (0.00-0.03); Imm Gran Pct Auto 0.3 % (0.0-0.4); Lymphocytes Absolute Auto 2.5 X10*3/uL (1.2-4.9); Lymphocytes Percent Auto 31.3 % (20-40); Mean Corpuscular HGB Conc 32.4 g/dl (31.0-36.0); Mean Corpuscular Hemoglobin 28.6 pg (27.0-33.0); Mean Corpuscular Volume 88.1 fL (80-98); Monocytes Absolute Auto 0.9 X10*3/uL (0.1-1.2); Monocytes Percent Auto 10.7 % (2-11); Neutrophils Absolute Auto 4.5 X10*3/uL (2.0-8.3); Neutrophils Percent Auto 56.6 % (45-73); PLT ABN DIST 1; Platelet Count 126 X10*3/uL (160-400); Red Blood Count 4.13 X10*6/uL (4.60-5.80); White Blood Count 7.9 X10*3/uL (4.8-10.8)
[2020-08-20] MEDS: 0.9 % Sodium Chloride 1,000 ML 999 ML IVCONT (18:55)
[2020-08-20 19:01] LABS: SLIDE REVIEW VERIFIED
[2020-08-20 19:04] LABS: B Type Natriuretic Peptide 175 pg/mL (<100)
[2020-08-20 19:22] LABS: Influenza A PCR NEGATIVE (Negative); Influenza B PCR NEGATIVE (Negative); Resp Syncy Virus RNA Qual PCR NEGATIVE (Negative); SARS COV2 PCR INHOUSE NEGATIVE (Negative)
[2020-08-20 19:45] VITALS: BP 188/91; PULSE 98; RESP 12; TEMP 36.6; O2SAT 100
[2020-08-20 19:46] LABS: Alanine Aminotransferase 32 U/L (0-40); Albumin Level 2.4 g/dL (3.5-5.0); Alkaline Phosphatase 207 U/L (39-117); Anion Gap 16 (12-20); Aspartate Amino Transferase 37 U/L (5-37); Bilirubin Direct < 0.2 mg/dL (0.0-0.5); Bilirubin Total 0.2 mg/dL (0.0-1.0); Blood Urea Nitrogen 32 mg/dL (9-16); Carbon Dioxide 20 mmol/L (22-29); Chloride 103 mmol/L (96-108); Creatinine Clr Calc Pharmacy 51.1; Estimated Glomerular Filt Rate 26; Glucose Random 331 mg/dL (60-115); Magnesium 1.9 mg/dL (1.6-2.6); Potassium 4.6 mmol/L (3.3-5.1); Sodium 134 mmol/L (135-145); Total Protein 6.9 g/dL (6.5-8.0)
[2020-08-20] MEDS: HYDROmorphone HCl 2 MG/ML VIAL IVPUSH (19:51)
[2020-08-20] MEDS: ondansetron HCL 4 MG/2 ML VIAL IVPUSH (19:51)
[2020-08-20 21:00] LABS: Glucose, Whole Blood 168 mg/dL (60-115)
[2020-08-20 21:14] VITALS: BP 172/85; PULSE 94; RESP 18; O2SAT 97
== END 2020-08-20 21:15 | disposition home or self-care (01) ==
PROVIDERS: Physician Assistant Medical; Emergency Provider Internal Medicine
DX: I16.0 Hypertensive urgency (principal); R42 Dizziness and giddiness; M79.602 Pain in left arm; R06.02 Shortness of breath; F11.10 Opioid abuse, uncomplicated; Z20.822 Contact with and (suspected) exposure to COVID-19
CPT/HCPCS: 0241U; 36415; 70450; 71046; 80048; 80076; 82550; 82947; 83735; 83880; 84484; 85025; 93005; 96361; 96374; 96375; 99285; 99291; J1170; J2405

== ENCOUNTER 2020-09-17 09:48 | Emergency (ER) | payer OTHER, SELFPAY ==
--- NOTE | ~2020-09-17 | US_ITS ---
EXAMINATION: US VENOUS ULTRASOUND WITH DOPPLER LOWER EXTREMITY, LEFT CLINICAL INFORMATION: Swelling. Below knee amputation. COMPARISON: Ultrasound venous Doppler exam 09/03/2013 TECHNIQUE: Ultrasound of the deep veins is performed from the hip to the calf with compression sonography and color and pulse Doppler assessment. Spectral analysis with color-flow imaging is performed. FINDINGS: There is normal venous compression and respiratory variation and augmented flow. The visualized common femoral vein, superficial femoral vein, profunda femoral vein, popliteal vein, and the trifurcation region shows no evidence of deep venous thrombosis. There is no significant popliteal fossa cyst. If the patient's symptoms persist, followup ultrasound in 5 days 7 days might be of value to exclude proximal propagation from a non-visualized calf vein. US/US venous duplex LE IMPRESSION: No DVT demonstrated in the left lower extremity.
[2020-09-17 10:01] VITALS: BP 180/100; PULSE 91; RESP 19; TEMP 36.1; O2SAT 99; BMI 37.2
[2020-09-17] MEDS: HYDROmorphone HCl 1 MG/ML SYRINGE IM (10:16)
[2020-09-17 11:08] VITALS: BP 176/79; PULSE 82
[2020-09-17 11:11] VITALS: BP 178/79; PULSE 82; RESP 17
--- NOTE | 2020-09-17 11:28 | ED.EXTPRO ---
HPI - Extremity Problem General Chief complaint: Extremity Injury, Lower Stated complaint: L LEG PAIN Time Seen by Provider: 09/17/20 09:53 Source: patient Mode of arrival: ambulatory Limitations: no limitations History of Present Illness HPI Narrative: 45-year-old male with bilateral below-knee amputation has history of chronic phantom pain familiar to this facility here complaining of left lower extremity pain states combination of phantom and concerned he may have blood clot in the leg and liking ultrasound. States this is little different given that the pain is in the posterior thigh along with the distal leg. MD Complaint: extremity pain Quality: burning and aching Exacerbating factors: nothing Associated symptoms: denies other symptoms Related Data Home Medications Medication Instructions Recorded Confirmed oxycodone 40 mg PO Q4H PRN 06/08/20 06/08/20 Previous Rx's Medication Instructions Recorded labetalol 100 mg PO BID #30 tab 05/02/20 Allergies Allergy/AdvReac Type Severity Reaction Status Date / Time clindamycin [CLINDAMYCIN] Allergy Intermediate RASH ALL Verified 09/17/20 10:04 OVER SKIN ON BACK daptomycin [DAPTOMYCIN] Allergy Mild UNKNOWN Verified 09/17/20 10:04 doxycycline [DOXYCYCLINE] Allergy Mild HIVES Verified 09/17/20 10:04 vancomycin [VANCOMYCIN] Allergy Mild UNKNOWN Verified 09/17/20 10:04 amoxicillin Allergy Unknown Unknown Verified 09/17/20 10:04 cephalexin [From Keflex] Allergy Unknown HIVES Verified 09/17/20 10:04 penicillin V Allergy Unknown Unknown Verified 09/17/20 10:04 Sulfa (Sulfonamide Allergy Unknown Unknown Verified 09/17/20 10:04 Antibiotics) sulfamethoxazole Allergy Unknown HIVES Verified 09/17/20 10:04 [From Bactrim] trimethoprim [From Bactrim] Allergy Unknown HIVES Verified 09/17/20 10:04 Review of Systems Review of Systems: Constitutional: No Weight loss, No Fever, No Chills, No Night Sweats, No Fatigue, No Malaise ENT/Mouth: No Hearing loss, No Ear Pain, No Nasal Congestion, No Sinus Pain, No Hoarseness, No sore throat, No Rhinorrhea, No Swallowing Difficulty Eyes: No Eye Pain, No Swelling, No Redness, No Foreign Body, No Discharge, No Vision Changes Cardiovascular: No Chest Pain, No SOB, No Dyspnea on Exertion, No Orthopnea, No Edema, No Palpitations Respiratory: No Cough, No Sputum, No Wheezing, No Smoke Exposure, No Dyspnea Gastrointestinal: No abdominal Pain, No Hematochezia, No Melena Genitourinary: No Dysuria, No Urinary Frequency, No Hematuria, No Urinary Incontinence, No Urgency, No Flank Pain, No Urinary Flow Changes, No Hesitancy Musculoskeletal: No joint pain, No Myalgias, No Joint Swelling Skin: No Skin Lesions, No rash Neuro: No Weakness, No Numbness, No Paresthesias, No Loss of Consciousness, No Dizziness, No Headache Psych: No Social Issue Heme/Lymph: No Bruising, No Bleeding,No Lymphadenopathy Endocrine: No Polyuria, No Polydipsia, No Temperature Intolerance Yes all other systems are reviewed and are negative [facility] Past Medical History Medical History Amputated below knee Diabetes Hypertension Opiate abuse, episodic Surgical History History of shoulder surgery Social History Social History Alcohol intake: never Smoking Status: Unknown if ever smoked Substance Use Type: Opiates Physical Exam Vital Signs: Vital Signs: Last Vital Signs Temp 97.0 F 09/17/20 10:01 Pulse 82 09/17/20 11:11 Resp 17 09/17/20 11:11 BP 178/79 H 09/17/20 11:11 Pulse Ox 99 09/17/20 10:01 Body Mass Index 37.2 Reviewed Const: General: cooperative and healthy appearing; No acute distress or intoxicated appearing Nutritional Appearance: average body habitus Orientation/consciousness: patient oriented x3 HENMT: Head: Yes normal to inspection Ears: hearing grossly normal bilaterally Eyes: General: appearance normal, both eyes and all related structures Visual Mcfarland: normal visual mcfarland by confrontation Neck: Neck: Yes normal visual inspection, No positive Brudzinski's sign, No positive Kernig's sign and No tender Thyroid: Thyroid normal Chest: Chest palpation & inspection: normal inspection of the chest Resp: Effort & Inspection: normal respiratory effort Cardio: Jugular venous distension: no JVD Rhythm: regular rhythm Heart sounds: S1 normal heart sound present and S2 normal heart sound present GI: Inspection: Yes normal to inspection Palpation (GI): Soft to palpation Percussion: Yes normal to percussion Auscultation: normal bowel sounds : General: Yes no CVA tenderness Back/Spine/Pelvis: Back: no CVA tenderness Skin: General skin exam: no rashes or lesions noted Neuro: General: patient oriented x3 Extrem: Other: Bilateral lower extremities below the knee amputation, bilateral stubs without any signs of edema or swelling or erythema. No signs of skin breakage. Course Course Course Narrative: In more consistent with phantom type pain which she has had many visits here in the ED for has intermittent breakthrough pain feels better after IM Dilaudid. Ultrasound of the left lower extremity without any evidence of DVT. Otherwise pulses within normal limits. No signs of acute infection. Will follow-up with his primary care doctor. MDM - Extremity (Nontraumatic) Imaging Data Left lower extremity ultrasound: Radiologist's impression: [address] [id number] ReportSigned Patient: Soco PreciadoR#: [id number]: 1975Acct:[id number]/Sex: 45 / MADM Date: 09/17/20Loc: [email or web address].EDAttending Dr: Ordering Physician: Aramis Fairchild NP Date of Service: 09/17/20 Procedure(s): US venous duplex LE LT Accession Number(s): [id number] cc: Aramis Fairchild NP~ EXAMINATION: US VENOUS ULTRASOUND WITH DOPPLER LOWER EXTREMITY, LEFT CLINICAL INFORMATION: Swelling. Below knee amputation. COMPARISON: Ultrasound venous Doppler exam 09/03/2013 TECHNIQUE: Ultrasound of the deep veins is performed from the hip to the calf with compression sonography and color and pulse Doppler assessment. Spectral analysis with color-flow imaging is performed. FINDINGS: There is normal venous compression and respiratory variation and augmented flow. The visualized common femoral vein, superficial femoral vein, profunda femoral vein, popliteal vein, and the trifurcation region shows no evidence of deep venous thrombosis. There is no significant popliteal fossa cyst. If the patient's symptoms persist, followup ultrasound in 5 days 7 days might be of value to exclude proximal propagation from a non-visualized calf vein. US/US venous duplex LE LT IMPRESSION: No DVT demonstrated in the left lower extremity. Dictated By:FAYE,ELY S MDSigned By:<Electronically signed by ELY MCKINNEY MD in OV>09/17/20 1122 DD/ [id number]/TT: Ring Packer: GERMAIN Discharge Plan Discharge Clinical Impression: Lower extremity pain, left Patient Disposition: Home, Self-Care Additional Instructions: The ultrasound of the left leg did not show any evidence of blood clot Follow up with her primary care doctor as well as her specialist as instructed by [facility] if any concerns or worsening symptoms Thank you Prescriptions: No Action labetalol 100 mg tablet 100 mg PO BID Qty: 30 RF: 0 oxycodone 20 mg Tablet 40 mg PO Q4H PRN (Reason: Pain) RF: 0 Referrals: Physician,Unknown [Primary Care Provider] - 2 days Interventions: ED Discharge Assessment Last Done: 09/17/20 11:34 Discharge Date/Time: 09/17/20 11:35
== END 2020-09-17 11:35 | disposition home or self-care (01) ==
PROVIDERS: Emergency Provider Emergency Medicine
DX: M79.662 Pain in left lower leg (principal); E11.9 Type 2 diabetes mellitus without complications; I10 Essential (primary) hypertension; F11.20 Opioid dependence, uncomplicated; Z89.519 Acquired absence of unspecified leg below knee
CPT/HCPCS: 93971; 96372; 99283; 99284; J1170

== ENCOUNTER 2020-09-28 09:55 | Outpatient (REF) | payer OTHER, SELFPAY ==
--- NOTE | ~2020-09-28 | US_ITS ---
EXAMINATION: US RETROPERITONEAL LIMITED (RENAL ONLY) CLINICAL INFORMATION: Hypertension. COMPARISON: Previous abdominal ultrasound October [address] of the abdomen and pelvis June 2017 TECHNIQUE: Grayscale and color imaging of the kidneys. Doppler exam of the renal arteries was attempted but the renal arteries and aorta were not well-visualized. FINDINGS: RIGHT KIDNEY: 12.1 x 7.5 x 6.5 cm (SAG x AP x TRV). The kidney is normal in size, contour, and echogenicity. Renal cortical thickness is normal. There is a 1.6 x 1.3 x 1.6 cm cyst in the midpole. No calculi or mass. No hydronephrosis. LEFT KIDNEY: 11.9 x 7.3 x 5.8 cm (SAG x AP x TRV). The kidney is normal in size, contour, and echogenicity. Renal cortical thickness is normal. No calculi or focal parenchymal lesions. No hydronephrosis. US/US renal BI IMPRESSION: Limited exam due to patient body habitus. 1.6 cm right renal cyst. Renal Doppler exam is nondiagnostic. The aorta and renal arteries could not be visualized.
--- NOTE | ~2020-09-28 | US_ITS ---
EXAMINATION: US KIDNEYS AND RENAL DOPPLER CLINICAL INFORMATION: Hypertension, CKD COMPARISON: None. TECHNIQUE: Routine grayscale imaging of kidneys was performed. FINDINGS: Right kidney measures 12.1 x 7.5 x 6.5 cm in sagittal by AP by transverse dimension. There is normal cortical thickness. There is anechoic cyst midpole measuring 1.6 x 3.6 x 1.6 cm. There are no echogenic renal calculi or hydronephrosis. Left kidney measures 11.9 x 7.3 x 5.8 cm in sagittal by AP by transverse dimension. There is normal cortical thickness. No solid or cystic lesion seen. There are no echogenic renal calculi or hydronephrosis. On Renal Doppler Exam: Right kidney: The renal artery velocity in the proximal, mid and distal segments are unable to be obtained due to body habitus. The resistive index in the upper pole is 0.86 and midpole 0.88. Renal aortic ratio cannot be obtained as the aortic velocity in the aorta cannot be obtained. Left kidney: Unable to obtain renal artery velocities at any of the segments. Renal aortic ratio cannot be optimally neither as no abdominal aorta velocity could be obtained in mid segment. The resistive index average is 0.83. US/US renal doppler IMPRESSION: Small midpole cyst right kidney. Otherwise both kidneys are unremarkable. Renal artery Doppler study cannot be performed due to patient's body habitus.
== END 2020-09-28 09:56 | disposition home or self-care (01) ==
LOC: HO.US 09:55
PROVIDERS: Visit Provider Internal Medicine Nephrology
DX: N17.9 Acute kidney failure, unspecified (principal); I13.10 Hypertensive heart and chronic kidney disease without heart failure, with stage 1 through stage 4 chronic kidney disease, or unspecified chronic kidney disease; N18.9 Chronic kidney disease, unspecified
CPT/HCPCS: 76775; 93975

== ENCOUNTER 2020-11-28 15:47 | Emergency (ER) | payer OTHER, SELFPAY ==
[2020-11-28 16:08] VITALS: BP 186/78; PULSE 116
[2020-11-28 16:14] VITALS: BP 190/74; PULSE 115; RESP 16; TEMP 36.6; O2SAT 99; BMI 37.2
--- NOTE | 2020-11-28 16:43 | ECG_ITS ---
Test Reason : K+? Blood Pressure : / mmHG Vent. Rate : 113 BPM Atrial Rate : 113 BPM P-R Int : 148 ms QRS Dur : 078 ms QT Int : 320 ms P-R-T Axes : 051 043 189 degrees QTc Int : [address] & T wave abnormality, consider inferolateral ischemia Abnormal ECG When compared with ECG of 20-AUG-2020 18:00, No significant change was found Referred By: Generic ED Physician Electronically Signed By:SIMON COLEMAN MD
--- NOTE | 2020-11-28 17:11 | ED.NAVMDI ---
HPI - Nausea/Vomiting/Diarrhea General Chief complaint: Nausea/Vomiting/Diarrhea Stated complaint: NAUSEA VOMITING Time Seen by Provider: 11/28/20 16:59 Source: patient Mode of arrival: ambulatory Limitations: no limitations History of Present Illness HPI Narrative: 45-year-old male who presents emergency department for evaluation of nausea, vomiting, diarrhea and weakness. Patient states that he was in [place] on Saturday11/26/2020 (2 days prior to evaluation). He states that he ate lobster at around 7:00 p.m.. At midnight he developed nausea vomiting and diarrhea. States that the symptoms were severe and he had to go to [facility] in [place]. He was found to have an elevated potassium (6.9) and elevated BUN. The patient was admitted and was treated however he states that he could not stay in [place] and had to return home so he left against medical advice. He states he felt better yesterday but today developed his symptoms again. He states that he vomited at least 4 times today. He has had 5-6 episodes of loose diarrheal stool with occasional small amounts of blood in the stool. He denied fever, chills or abdominal pain. He states that he is feeling lightheaded and dizzy. He states that 3 years ago he did have problems with high potassium but this resolved. The patient states that he does have diabetes and has had osteomyelitis and cellulitis in the past requiring bilateral gwatc-pvk-chap amputations and he has had osteomyelitis of his right shoulder. Related Data Home Medications Medication Instructions Recorded Confirmed oxycodone 40 mg PO Q4H PRN 06/08/20 06/08/20 Previous Rx's Medication Instructions Recorded labetalol 100 mg PO BID #30 tab 05/02/20 ondansetron 4 mg PO Q6-8H PRN #14 tab 11/28/20 Allergies Allergy/AdvReac Type Severity Reaction Status Date / Time clindamycin [CLINDAMYCIN] Allergy Intermediate RASH ALL Verified 09/17/20 10:04 OVER SKIN ON BACK daptomycin [DAPTOMYCIN] Allergy Mild UNKNOWN Verified 09/17/20 10:04 doxycycline [DOXYCYCLINE] Allergy Mild HIVES Verified 09/17/20 10:04 vancomycin [VANCOMYCIN] Allergy Mild UNKNOWN Verified 09/17/20 10:04 amoxicillin Allergy Unknown Unknown Verified 09/17/20 10:04 cephalexin [From Keflex] Allergy Unknown HIVES Verified 09/17/20 10:04 penicillin V Allergy Unknown Unknown Verified 09/17/20 10:04 Sulfa (Sulfonamide Allergy Unknown Unknown Verified 09/17/20 10:04 Antibiotics) sulfamethoxazole Allergy Unknown HIVES Verified 09/17/20 10:04 [From Bactrim] trimethoprim [From Bactrim] Allergy Unknown HIVES Verified 09/17/20 10:04 Review of Systems Review of Systems: Yes all other systems are reviewed and are negative [facility] Past Medical History [facility] Narrative: Patient has a history of diabetes, hypertension and strokes. Also has a history of opiate abuse in the past. Past surgical history significant for right shoulder surgery for osteomyelitis, bilateral canwh-smd-wccn amputations for osteomyelitis. He denies tobacco, alcohol and drug use. Medical History Amputated below knee Diabetes Hypertension Opiate abuse, episodic Surgical History History of shoulder surgery Social History Social History Alcohol intake: never Smoking Status: Unknown if ever smoked Substance Use Type: Opiates Advance Directives: No Advance Directives Information Provided: Yes Physical Exam Vital Signs: Vital Signs: Last Vital Signs Temp 97.9 F 11/28/20 16:14 Pulse 115 H 11/28/20 16:14 Resp 16 11/28/20 16:14 BP 190/74 H 11/28/20 16:14 Pulse Ox 99 11/28/20 16:14 Body Mass Index 37.2 Const: General: cooperative Orientation/consciousness: oriented to person and oriented to place Limitations: no limitations HENMT: Head: Yes normal to inspection, Yes normocephalic and Yes atraumatic Ears: external ears normal General nose exam: Normal external nose present Face and sinus: Yes normal facial exam Mouth: Normal oral and palatal mucosa present Throat: Yes posterior oropharynx normal Eyes: Periorbital: periorbital findings normal Eyelids: Yes eyelids normal Conjunctivae: conjunctivae normal Sclerae: sclerae normal Corneas: corneas normal Pupils: Equal, round and reactive pupils present Direct Ophthalmoscopy: normal light reflex Neck: Neck: Yes full ROM, Yes no lymphadenopathy, Yes no meningeal signs, Yes trachea midline and Yes supple Chest: Chest palpation & inspection: normal inspection of the chest and normal palpation of entire chest wall Resp: Effort & Inspection: normal respiratory effort and able to speak in complete sentences Auscultation: clear to auscultation bilaterally Cardio: Rate: regular rate Rhythm: regular rhythm Heart sounds: S1 normal heart sound present, S2 normal heart sound present and no murmurs GI: Inspection: Yes normal to inspection Palpation (GI): Soft to palpation, nontender, no guarding, not rigid and No hepatosplenomegaly present : General: Yes no CVA tenderness Back/Spine/Pelvis: Back: no CVA tenderness Cervical Spine: normal cervical lordosis Thoracic/Lumbar Spine: thoracic and lumbar spine normal to inspection Skin: Lesions: no lesions Rashes: no rashes Wounds: no wounds Neuro: General: oriented to person, oriented to place and no meningeal signs Cranial nerves: Yes CN's II-XII intact bilaterally and Yes Equal, round and reactive pupils present Cognition (Neuro): normal cognition Motor exam (neuro): 5/5 motor strength present throughout Extrem: Other: Bilateral whigp-qhw-gaes amputations General: Yes full ROM Psych: Appearance: well kempt Mental Status: mental status grossly normal Speech and movement: Normal speech and movement present Affect: normal affect Attitude: cooperative Thought process: Normal thought process present Thought content: Normal thought content present Course Course Course Narrative: 45-year-old male who presents emergency department for evaluation of nausea, vomiting and diarrhea x2 days. Patient was hospitalized 2 days prior at [facility] for hyperkalemia and for elevated BUN. I will try to obtain these records. The patient had to leave against medical advice since his family could not stay in the [place] area needed to return home. He states he felt better yesterday but his symptoms returned today. He did have lobster/ seafood to eat, 5 hours prior to the onset of his symptoms 2 days prior. I ordered a CBC, CMP, lipase, C diff, stool culture. He states that he tested negative for COVID yesterday but I did order a COVID swab. Patient was ordered to get normal saline IV x1 L and Zofran 4 mg IV. 1943: Patient's laboratory evaluation revealed that he does have chronic anemia which is slightly worse than his previous values, he has chronic thrombocytopenia as well. The patient's potassium at this time is normal at 4.9. Patient's BUN and creatinine was 43 and 3.24 which makes is GFR slightly lower than previously however he does have chronic kidney disease most likely secondary to his diabetes. Patient will be given a 2nd L of normal saline. He has not been able to produce a stool sample. He states that he is feeling better. He will be discharged home after 2nd L. I will prescribe Zofran for him and I advised him to take tyec-sok-aphuzys Imodium for his diarrhea. MDM - Nausea/Vomiting/Diarrhea Lab Data Result diagrams: 11/28/20 18:19 11/28/20 18:20 Labs: Lab Results 11/28/20 11/28/20 11/28/20 Range/Units 18:19 18:19 18:20 WBC 4.6 L (4.8-10.8) X10*3/uL RBC 3.16 L D (4.60-5.80) X10*6/uL Hgb 8.8 L D (14.0-18.0) g/dl Hct 28.7 L D (42-52) % MCV 90.8 (80-98) fL MCH 27.8 (27.0-33.0) pg MCHC 30.7 L (31.0-36.0) g/dl RDW 14.4 (11.0-16.0) % Plt Count 114 L (160-400) X10*3/uL MPV 12.8 H (9.4-12.4) fL Immature Gran % (Auto) 0.2 (0.0-0.4) % Neut % (Auto) 56.9 (45-73) % Lymph % (Auto) 28.4 (20-40) % Foster % (Auto) 13.0 H (2-11) % Eos % (Auto) 1.3 (0-4) % Baso % (Auto) 0.2 (0-2) % Lymph # (Auto) 1.3 (1.2-4.9) X10*3/uL Foster # (Auto) 0.6 (0.1-1.2) X10*3/uL Eos # (Auto) 0.1 (0.0-0.4) X10*3/uL Baso # (Auto) 0.0 (0.0-0.2) X10*3/uL Abs Immat Gran (auto) 0.01 (0.00-0.03) X10*3/uL Absolute Neuts (auto) 2.6 (2.0-8.3) X10*3/uL Absolute Nucleated RBC 0.000 (0.0-0.012) X10*3/uL Nucleated RBC % (auto) 0.0 (0.0-0.2) /100WBC Hold Blue Top SEE NOTE Sodium 136 (135-145) mmol/L Potassium 4.9 (3.3-5.1) mmol/L Chloride 110 H (96-108) mmol/L Carbon Dioxide 19 L (22-29) mmol/L Anion Gap 12 (12-20) BUN 43 H (9-16) mg/dL Creatinine 3.24 H (0.5-1.4) mg/dL Estim Creat Clear Calc 41.5 Estimated GFR 21 Random Glucose 276 H (60-115) mg/dL Calcium 7.6 L (8.4-10.2) mg/dL Total Bilirubin (0.0-1.0) mg/dL Direct Bilirubin (0.0-0.5) mg/dL AST (5-37) U/L ALT (0-40) U/L Alkaline Phosphatase (39-117) U/L Troponin I High Sens (<3.5-35.0) ng/L Total Protein (6.5-8.0) g/dL Albumin (3.5-5.0) g/dL Lipase (8-78) U/L 11/28/20 11/28/20 Range/Units 18:20 18:20 WBC (4.8-10.8) X10*3/uL RBC (4.60-5.80) X10*6/uL Hgb (14.0-18.0) g/dl Hct (42-52) % MCV (80-98) fL MCH (27.0-33.0) pg MCHC (31.0-36.0) g/dl RDW (11.0-16.0) % Plt Count (160-400) X10*3/uL MPV (9.4-12.4) fL Immature Gran % (Auto) (0.0-0.4) % Neut % (Auto) (45-73) % Lymph % (Auto) (20-40) % Foster % (Auto) (2-11) % Eos % (Auto) (0-4) % Baso % (Auto) (0-2) % Lymph # (Auto) (1.2-4.9) X10*3/uL Foster # (Auto) (0.1-1.2) X10*3/uL Eos # (Auto) (0.0-0.4) X10*3/uL Baso # (Auto) (0.0-0.2) X10*3/uL Abs Immat Gran (auto) (0.00-0.03) X10*3/uL Absolute Neuts (auto) (2.0-8.3) X10*3/uL Absolute Nucleated RBC (0.0-0.012) X10*3/uL Nucleated RBC % (auto) (0.0-0.2) /100WBC Hold Blue Top Sodium (135-145) mmol/L Potassium (3.3-5.1) mmol/L Chloride (96-108) mmol/L Carbon Dioxide (22-29) mmol/L Anion Gap (12-20) BUN (9-16) mg/dL Creatinine (0.5-1.4) mg/dL Estim Creat Clear Calc Estimated GFR Random Glucose (60-115) mg/dL Calcium (8.4-10.2) mg/dL Total Bilirubin 0.3 (0.0-1.0) mg/dL Direct Bilirubin 0.2 (0.0-0.5) mg/dL AST 27 (5-37) U/L ALT 40 (0-40) U/L Alkaline Phosphatase 171 H (39-117) U/L Troponin I High Sens 27.1 (<3.5-35.0) ng/L Total Protein 6.3 L (6.5-8.0) g/dL Albumin 2.4 L (3.5-5.0) g/dL Lipase 89 H (8-78) U/L Discharge Plan Discharge Clinical Impression: Acute dehydration Nausea & vomiting Qualifiers: Vomiting type: unspecified Vomiting Intractability: non-intractable Qualified Code(s): R11.2 - Nausea with vomiting, unspecified Diarrhea Qualifiers: Diarrhea type: unspecified type Qualified Code(s): R19.7 - Diarrhea, unspecified Patient Disposition: Home, Self-Care Instructions: Dehydration (ED) Additional Instructions: At this time, I suspect that your high potassium in your slight elevation in your kidney numbers was due to dehydration caused by your nausea vomiting and diarrhea. Today, your potassium is normal which is reassuring. Your kidney function is slightly higher than previously but this is probably because your stool dehydrated. Your slightly more anemic than you were previously as well. Increase your fluid intake to prevent further dehydration. Take Zofran (ondansetron) ODT 4 mg, 1 pill dissolved in your mouth every 8 hours as needed for nausea and vomiting. If you continue to have diarrhea take Imodium 2 mg pills, 1 pill 3 times a day as needed for diarrhea. Follow-up with your doctor in 2 days. Please return to the emergency department if your symptoms get worse or if you develop any symptoms that are concerning to you. Prescriptions: New ondansetron 4 mg tablet,disintegrating 4 mg PO Q6-8H PRN (Reason: nausea and vomiting) Qty: 14 RF: 0 No Action labetalol 100 mg tablet 100 mg PO BID Qty: 30 RF: 0 oxycodone 20 mg Tablet 40 mg PO Q4H PRN (Reason: Pain) RF: 0
[2020-11-28] MEDS: 0.9 % Sodium Chloride 1,000 ML 999 ML IV ×2 (17:47→20:02)
[2020-11-28] MEDS: ondansetron HCL 4 MG/2 ML VIAL IVPUSH (17:47)
--- NOTE | 2020-11-28 17:55 | PC.NURSE ---
PT IS DIFFICULT STICK. WAS UNABLE TO OBTAIN BLOOD WORK. WILL HAVE ANOTHER PCT ATTEMPT. RN AWARE
[2020-11-28 18:28] LABS: MANUAL DIFF FLAG NO
[2020-11-28 18:30] LABS: Basophils Percent Auto 0.2 % (0-2); Eosinophils Absolute Auto 0.1 X10*3/uL (0.0-0.4); Eosinophils Percent Auto 1.3 % (0-4); Hematocrit 28.7 % (42-52); Hemoglobin 8.8 g/dl (14.0-18.0); Imm Gran Abs Auto 0.01 X10*3/uL (0.00-0.03); Imm Gran Pct Auto 0.2 % (0.0-0.4); Lymphocytes Absolute Auto 1.3 X10*3/uL (1.2-4.9); Lymphocytes Percent Auto 28.4 % (20-40); Mean Corpuscular HGB Conc 30.7 g/dl (31.0-36.0); Mean Corpuscular Hemoglobin 27.8 pg (27.0-33.0); Mean Corpuscular Volume 90.8 fL (80-98); Mean Platelet Volume 12.8 fL (9.4-12.4); Monocytes Absolute Auto 0.6 X10*3/uL (0.1-1.2); Neutrophils Absolute Auto 2.6 X10*3/uL (2.0-8.3); Neutrophils Percent Auto 56.9 % (45-73); Platelet Count 114 X10*3/uL (160-400); Red Blood Count 3.16 X10*6/uL (4.60-5.80); Red Cell Distribution Width 14.4 % (11.0-16.0); White Blood Count 4.6 X10*3/uL (4.8-10.8)
[2020-11-28 18:52] LABS: Alanine Aminotransferase 40 U/L (0-40); Albumin Level 2.4 g/dL (3.5-5.0); Alkaline Phosphatase 171 U/L (39-117); Aspartate Amino Transferase 27 U/L (5-37); Bilirubin Direct 0.2 mg/dL (0.0-0.5); Bilirubin Total 0.3 mg/dL (0.0-1.0); Lipase 89 U/L (8-78); Total Protein 6.3 g/dL (6.5-8.0)
[2020-11-28 18:55] LABS: Troponin-I High Sensitivity 27.1 ng/L (<3.5-35.0)
[2020-11-28 19:02] LABS: Anion Gap 12 (12-20); Blood Urea Nitrogen 43 mg/dL (9-16); Calcium 7.6 mg/dL (8.4-10.2); Carbon Dioxide 19 mmol/L (22-29); Chloride 110 mmol/L (96-108); Creatinine Clr Calc Pharmacy 41.5; Estimated Glomerular Filt Rate 21; Glucose Random 276 mg/dL (60-115); Potassium 4.9 mmol/L (3.3-5.1); Sodium 136 mmol/L (135-145)
[2020-11-28] MEDS: oxyCODONE HCl Immed Release 15 MG TABLET 40 MG PO (20:02)
[2020-11-28 20:03] VITALS: BP 170/64; PULSE 110; RESP 16; O2SAT 99
== END 2020-11-28 21:36 | disposition home or self-care (01) ==
PROVIDERS: Emergency Provider Emergency Medicine Emergency Medical Services
DX: E86.0 Dehydration (principal); R11.2 Nausea with vomiting, unspecified; R19.7 Diarrhea, unspecified; Z79.899 Other long term (current) drug therapy
CPT/HCPCS: 36415; 80048; 80076; 83690; 84484; 85025; 93005; 96365; 96375; 99284; J2405

== ENCOUNTER 2020-12-05 09:08 | Outpatient (REF) | payer OTHER, SELFPAY | END 2020-12-05 09:09 | disposition home or self-care (01) | LOC: HO.LAB 09:08 | PROVIDERS: Visit Provider Internal Medicine | DX: Z20.822 Contact with and (suspected) exposure to COVID-19 (principal) | CPT/HCPCS: C9803; U0003; U0005 ==

== ENCOUNTER 2021-01-01 12:37 | Inpatient (IN) | payer OTHER, SELFPAY ==
--- NOTE | ~2021-01-01 | XR_ITS ---
EXAMINATION: PORTABLE CHEST 1 VIEW CLINICAL INFORMATION: WHEEZING . COMPARISON: 08/20/2020. TECHNIQUE: Portable frontal view of the chest was obtained. FINDINGS: The lungs are mildly hypoexpanded. No focal infiltrate, effusion, edema, or pneumothorax. Cardiac and mediastinal silhouettes are within normal limits for technique. No acute bony abnormality seen. XR/XR chest 1V IMPRESSION: No evidence of acute disease.
--- NOTE | ~2021-01-01 | CT_ITS ---
EXAMINATION: CT ABDOMEN AND PELVIS WITHOUT CONTRAST CLINICAL INFORMATION: Diffuse abdominal tenderness to palpation. Rectal bleeding. Anemia. COMPARISON: Renal ultrasound dated 09/28/2020. Ultrasound of the abdomen dated 10/30/2019. CT scan of the abdomen and pelvis dated 07/08/2017. TECHNIQUE: Multidetector volumetric imaging was performed from the superior aspect of the liver through the pubic symphysis. Sagittal and coronal reformatted images were obtained on the technologist workstation. This CT examination was performed using dose optimization techniques as appropriate, variously including the following: *Automated exposure control *Adjustment of mA and/or kV according to patient size (this includes techniques or standardized protocols for targeted exams where dose is matched to indication/reason for exam; i.e. extremities or head) *Use of iterative reconstruction technique DLP: 1204 mGy-cm. FINDINGS: LUNG BASES: There are several tiny 2 to 5 mm solid noncalcified nodule seen in the lung bases laterally, including in the lingula, right middle lobe, and both lower lobes. In addition, subtle bilateral patchy areas of centrilobular groundglass opacity are noted. These findings are new when compared to the 2017 exam and are nonspecific. There is, however, also slight thickening of the airways and findings may be due to a respiratory bronchiolitis or other inflammatory process. A subtle neoplastic process, such as multiple metastatic nodules is felt to be less likely. No significant effusion is seen. LIVER, GALLBLADDER, AND BILIARY TREE: An elongated enlarged left lobe of the liver is again seen extending across the midline into the left upper quadrant. Surface contour of the liver remains nodular and there is relative atrophy of the right lobe. Small perigastric and perisplenic varices are seen. Findings are consistent with liver cirrhosis and portal venous hypertension. No free fluid is noted. No focal hepatic lesion on noncontrast imaging. No biliary ductal dilatation is present. The gallbladder is chronically hydropic, measuring 11.5 x 6.7 cm, similar to prior exam. No radiopaque gallstones, gallbladder wall thickening, or obvious pericholecystic inflammatory changes. PANCREAS: Diffuse fatty atrophy of the pancreas is seen. No pancreatic ductal dilatation or discrete mass appreciated on noncontrast study. SPLEEN: Enlarged, measuring 14.2 cm longitudinally, similar to prior exam. ADRENAL GLANDS: Unremarkable on noncontrast imaging. KIDNEYS AND URETERS: The kidneys are normal in size, shape, and attenuation. No hydronephrosis, hydroureter, or calculi seen. There is a 1.2 cm mid right renal cyst, similar to prior exam. No perinephric stranding. BLADDER: Unremarkable. PELVIC VISCERA: Partially included penile implants and attached right lower quadrant reservoir is noted. GASTROINTESTINAL TRACT: The small and large bowel are decompressed. There is a nonspecific 4.5 cm long segment of distal transverse colon, which demonstrates circumferential wall thickening and luminal narrowing (series 3, image 46), perhaps related to spasm, though an underlying colonic mass, especially in the setting of GI bleeding cannot be excluded. There is also prominent masslike density seen in region of the ileocecal valve (series 3, image 79), unclear if related to a mass versus conglomeration of fecal material. The appendix is unremarkable. ABDOMINAL WALL: No significant hernia is appreciated. LYMPH NODES, VASCULAR: There is a 1.2 cm periportal lymph node and other smaller periportal lymph nodes. Subcentimeter sized retroperitoneal lymph nodes are noted. OSSEOUS STRUCTURES: Chronic mild superior endplate compression deformity of the L1 and L2 vertebral body is seen, unchanged since 2017. Mild vertebral spondylosis seen at the thoracolumbar junction. CT/CT abdomen pelvis wo con IMPRESSION: 1. Limited evaluation of the colon due to unprepped and noncontrast enhanced nature of the exam. As discussed above, there are 2 equivocal findings in the colon, one at the ileocecal valve region and one in the distal transverse colon, which will require further assessment in the setting of GI bleeding to exclude underlying malignancy. 2. No other acute intra-abdominal or pelvic findings. There are, however, several 2 to 5 mm bilateral pulmonary nodules and patchy groundglass opacities with airway thickening seen in the included lung bases, raising the suspicion of respiratory bronchiolitis or other infectious/inflammatory process. A neoplastic etiology is felt to be less likely, but cannot be excluded. Close clinical correlation and follow-up is recommended. 3. Liver cirrhosis with portal venous hypertension as evidenced by splenomegaly and small upper abdominal varices. No significant ascites is seen. Enlarged periportal lymph nodes are seen, likely reactive. 4. Other incidental findings include fatty atrophy of the pancreas, a chronically hydropic gallbladder, stable right renal cyst, and chronic mild superior endplate compression deformity of L1 and L2.
[2021-01-01 13:00] VITALS: BP 137/72; PULSE 95; RESP 16; TEMP 36.6; O2SAT 97; BMI 37.2
--- NOTE | 2021-01-01 14:54 | ECG_ITS ---
Test Reason : CHEST CONGESTION Blood Pressure : / mmHG Vent. Rate : 090 BPM Atrial Rate : 090 BPM P-R Int : 162 ms QRS Dur : 072 ms QT Int : 340 ms P-R-T Axes : 050 033 193 degrees QTc Int : 415 ms Normal sinus rhythm ST & T wave abnormality, consider inferolateral ischemia Abnormal ECG When compared with ECG of 28-NOV-2020 16:53, No significant change was found Referred By: Lissa Vital Electronically Signed By:PADMAJA MANCILLA
[2021-01-01 15:30] LABS: MANUAL DIFF FLAG NO
[2021-01-01 15:31] LABS: Basophils Percent Auto 0.1 % (0-2); Eosinophils Percent Auto 0.1 % (0-4); Hematocrit 31.4 % (42-52); Hemoglobin 9.8 g/dl (14.0-18.0); Imm Gran Abs Auto 0.01 X10*3/uL (0.00-0.03); Imm Gran Pct Auto 0.1 % (0.0-0.4); Lymphocytes Absolute Auto 1.2 X10*3/uL (1.2-4.9); Lymphocytes Percent Auto 15.3 % (20-40); Mean Corpuscular HGB Conc 31.2 g/dl (31.0-36.0); Mean Corpuscular Hemoglobin 27.3 pg (27.0-33.0); Mean Corpuscular Volume 87.5 fL (80-98); Monocytes Absolute Auto 0.8 X10*3/uL (0.1-1.2); Monocytes Percent Auto 10.4 % (2-11); Neutrophils Absolute Auto 5.9 X10*3/uL (2.0-8.3); Platelet Count 121 X10*3/uL (160-400); Red Blood Count 3.59 X10*6/uL (4.60-5.80); Red Cell Distribution Width 14.6 % (11.0-16.0); White Blood Count 7.9 X10*3/uL (4.8-10.8)
[2021-01-01] MEDS: Albuterol Sulfate (0.083%) 2.5 MG/3 ML VIAL.NEB 5 MG INHALE (15:35)
[2021-01-01 15:40] VITALS: PULSE 91; O2SAT 99
[2021-01-01 15:45] LABS: Prothrombin Time 11.9 SEC (10.8-13.0)
[2021-01-01 15:47] LABS: OBS Int Ctl Valid YES; OBS1 POSITIVE (NEGATIVE)
[2021-01-01 15:48] LABS: Partial Thromboplastin Time 36.5 SEC (24.1-38.0)
--- NOTE | 2021-01-01 16:10 | ED_ITS ---
HPI - SOB/Dyspnea General Chief Complaint: Dyspnea Stated Complaint: chest congestion Time Seen by Provider: 01/01/21 14:40 Source: patient Mode of arrival: wheelchair History of Present Illness HPI Narrative: 45-year-old male with a past medical history of CKD, diabetes, HTN, opiate abuse, bilateral below-knee amputations, CVA on Plavix and Aspirin, presenting to the ED complaining of 2 days of chest congestion, SOB, and wheezing. Admits recently got home from [place] in symptoms began after a flight. Also reports diffuse abdominal pain, new anemia with a low H/H found before he went to [place], and rectal bleeding. Reports chest pain when coughing. Denies headache, lightheadedness/dizziness, nausea/vomiting/diarrhea MD elicited complaint: shortness of breath and cough Related Data Home Medications Medication Instructions Recorded Confirmed oxycodone 40 mg PO Q4H PRN 06/08/20 06/08/20 Previous Rx's Medication Instructions Recorded labetalol 100 mg PO BID #30 tab 05/02/20 ondansetron 4 mg PO Q6-8H PRN #14 tab 11/28/20 Allergies Allergy/AdvReac Type Severity Reaction Status Date / Time clindamycin [CLINDAMYCIN] Allergy Intermediate RASH ALL Verified 01/01/21 13:05 OVER SKIN ON BACK daptomycin [DAPTOMYCIN] Allergy Mild UNKNOWN Verified 01/01/21 13:05 doxycycline [DOXYCYCLINE] Allergy Mild HIVES Verified 01/01/21 13:05 vancomycin [VANCOMYCIN] Allergy Mild UNKNOWN Verified 01/01/21 13:05 amoxicillin Allergy Unknown Unknown Verified 01/01/21 13:05 cephalexin [From Keflex] Allergy Unknown HIVES Verified 01/01/21 13:05 penicillin V Allergy Unknown Unknown Verified 01/01/21 13:05 Sulfa (Sulfonamide Allergy Unknown Unknown Verified 01/01/21 13:05 Antibiotics) sulfamethoxazole Allergy Unknown HIVES Verified 01/01/21 13:05 [From Bactrim] trimethoprim [From Bactrim] Allergy Unknown HIVES Verified 01/01/21 13:05 Review of Systems Review of Systems: Constitutional: No Fever, + Chills, No Fatigue, No Malaise Cardiovascular: + Chest Pain when coughing, + SOB, No Palpitations Respiratory: + Cough, + Sputum, + Wheezing, No Smoke Exposure, + Dyspnea Gastrointestinal: No Nausea, No Vomiting, No Diarrhea, No Constipation, + Abd ominal pain, + Hematochezia, No Melena, +hemorrhoids Genitourinary: No irregular bleeding, No Dysuria, No Urinary Frequency, No Hematuria, No Flank Pain Musculoskeletal: No joint pain, No Myalgias, No Joint Swelling Skin: No Skin Lesions, No rash Neuro: No Weakness, No Numbness, No Dizziness, No Headache Yes all other systems are reviewed and are negative [facility] Past Medical History Attestation statement: The following information was validated with the patient. Medical History (Updated 01/01/21 @ 16:54 by TERRA Damian) Amputated below knee Chronic kidney disease (CKD), stage III (moderate) Diabetes Hypertension Opiate abuse, episodic Surgical History History of shoulder surgery Social History Social History Alcohol intake: never Substance Use Type: Opiates Advance Directives: Yes Advance Directives Information Provided: Yes Advance Directives on File: No Physical Exam Vital Signs: Vital Signs: Last Vital Signs Temp 97.9 F 01/01/21 13:00 Pulse 91 01/01/21 15:40 Resp 16 01/01/21 13:00 BP 137/72 01/01/21 13:00 Pulse Ox 97 01/01/21 13:00 Body Mass Index 37.2 Const: General: cooperative and no acute distress Orienta tion/consciousness: patient oriented x3 Limitations: no limitations HENMT: Head: Yes normal to inspection Ears: hearing grossly normal bilaterally General nose exam: Normal external nose present Face and sinus: Yes normal facial exam Eyes: General: appearance normal, both eyes and all related structures EOM: EOMs intact bilaterally Neck: Neck: Yes normal visual inspection and Yes no meningeal signs Resp: Effort & Inspection: normal respiratory effort Auscultation: wheezes expiratory wheezes and throughout Cardio: Rate: regular rate Heart sounds: S1 normal heart sound present and S2 normal heart sound present GI: Other: Pale stool noted on rectal Inspection: Yes normal to inspection Palpation (GI): Soft to palpation, Tenderness to palpation present (GI) (diffusely), no guarding and not rigid Rectal Exam - Male: Yes External hemorrhoid(s) present : General: Yes no CVA tenderness Back/Spine/Pelvis: Back: no CVA tenderness Skin: Rashes: no rashes Wounds: no wounds Neuro: General: patient oriented x3 and no meningeal signs Course Course Course Narrative: - no leukocytosis, H&H lower than baseline 9.8/31.4 > occult stool positive - renal function at patient's baseline. Glucose elevated to 377, no anion gap >> 10 units subQ insulin ordered - troponin 37, EKG without changes from prior > will obtain 3 hour repeat, likely from renal dysfunction -1635--patient is positive for COVID-19 XR chest 1V IMPRESSION: No evidence of acute disease. CT abdomen pelvis wo con IMPRESSION: 1. Limited evaluation of the colon due to unprepped and noncontrast enhanced nature of the exam. As discussed above, there are 2 equivocal findings in the colon, one at the ileocecal valve region and one in the distal transverse colon, which will require further assessment in the setting of GI bleeding to exclude underlying malignancy. 2. No other acute intra-abdominal or pelvic findings. There are, however, several 2 to 5 mm bilateral pulmonary nodules and patchy groundglass opacities with airway thickening seen in the included lung bases, raising the suspicion of respiratory bronchiolitis or other infectious/inflammatory process. A neoplastic etiology is felt to be less likely, but cannot be excluded. Close clinical correlation and follow-up is recommended. 3. Liver cirrhosis with portal venous hypertension as evidenced by splenomegaly and small upper abdominal varices. No significant ascites is seen. Enlarged periportal lymph nodes are seen, likely reactive. 4. Other incidental findings include fatty atrophy of the pancreas, a chronically hydropic gallbladder, stable right renal cyst, and chronic mild superior endplate compression deformity of L1 and L2. >> IV Azithromycin ordered. Case discussed with GI doctor Maulik, is aware will see patient tomorrow. Plan to admit for further management. MDM - SOB/Dyspnea MDM Narrative Medical decision making narrative: 45-year-old male with a past medical history of CKD, diabetes, HTN, opiate abuse, bilateral below-knee amputations, CVA on Plavix and Aspirin, presenting to the ED complaining of 2 days of chest congestion, SOB, and wheezing. Also reports diffuse abdominal pain, new anemia with a low H/H found before he went to [place], and rectal bleeding. On exam VSS, NAD, diffuse expiratory wheezing throughout, abdomen soft diffusely tender. Concern for viral syndrome/COVID-19 vs bronchitis/pneumonia. Lower concern for PE or ACS. Concern for GI bleed vs diverticulitis vs appendicitis vs hemo rrhoidal bleeding Plan: EKG, Labs, UA, CXR, CT/AP, occult stool, albuterol neb, reassess Medical Records Attestation: I reviewed the patient's medical records. Lab Data Attestation: I reviewed the patient's lab results. Result diagrams: 01/01/21 15:24 01/01/21 15:24 Labs: Lab Results 01/01/21 01/01/21 01/01/21 Range/Units 15:24 15:24 15:24 WBC 7.9 (4.8-10.8) X10*3/uL RBC 3.59 L (4.60-5.80) X10*6/uL Hgb 9.8 L (14.0-18.0) g/dl Hct 31.4 L (42-52) % MCV 87.5 (80-98) fL MCH 27.3 (27.0-33.0) pg MCHC 31.2 (31.0-36.0) g/dl RDW 14.6 (11.0-16.0) % Plt Count 121 L (160-400) X10*3/uL MPV 13.0 H (9.4-12.4) fL Immature Gran % (Auto) 0.1 (0.0-0.4) % Neut % (Auto) 74.0 H (45-73) % Lymph % (Auto) 15.3 L (20-40) % [place] % (Auto) 10.4 (2-11) % Eos % (Auto) 0.1 (0-4) % Baso % (Auto) 0.1 (0-2) % Lymph # (Auto) 1.2 (1.2-4.9) X10*3/uL [place] # (Auto) 0.8 (0.1-1.2) X10*3/uL Eos # (Auto) 0.0 (0.0-0.4) X10*3/uL Baso # (Auto) 0.0 (0.0-0.2) X10*3/uL Abs Immat Gran (auto) 0.01 (0.00-0.03) X10*3/uL Absolute Neuts (auto) 5.9 (2.0-8.3) X10*3/uL Absolute Nucleated RBC 0.000 (0.0-0.012) X10*3/uL Nucleated RBC % (auto) 0.0 (0.0-0.2) /100WBC PT (10.8-13.0) SEC INR (0.9-1.1) APTT (24.1-38.0) SEC Sodium 134 L (135-145) mmol/L Potassium 5.0 (3.3-5.1) mmol/L Chloride 108 (96-108) mmol/L Carbon Dioxide 18 L (22-29) mmol/L Anion Gap 13 (12-20) BUN 33 H (9-16) mg/dL Creatinine 2.74 H (0.5-1.4) mg/dL Estim Creat Clear Calc 49.0 Estimated GFR 25 Random Glucose 377 H* (60-115) mg/dL Calcium 7.9 L (8.4-10.2) mg/dL Magnesium 1.6 (1.6-2.6) mg/dL Total Bilirubin 0.2 (0.0-1.0) mg/dL Direct Bilirubin < 0.2 (0.0-0.5) mg/dL AST 45 H D (5-37) U/L ALT 34 (0-40) U/L Alkaline Phosphatase 266 H D (39-117) U/L Total Creatine Kinase 71 (38-174) U/L Troponin I High Sens 37.0 H* (<3.5-35.0) ng/L Total Protein 6.4 L (6.5-8.0) g/dL Albumin 2.3 L (3.5-5.0) g/dL Lipase 34 (8-78) U/L Stool Occult Blood (NEGATIVE) Coronavirus (PCR) (Negative) Influenza Type A (PCR) (Negative) Influenza Type B (PCR) (Negative) RSV RNA Qual (PCR) (Negative) 01/01/21 01/01/21 01/01/21 Range/Units 15:24 15:24 15:39 WBC (4.8-10.8) X10*3/uL RBC (4.60-5.80) X10*6/uL Hgb (14.0-18.0) g/dl Hct (42-52) % MCV (80-98) fL MCH (27.0-33.0) pg MCHC (31.0-36.0) g/dl RDW (11.0-16.0) % Plt Count (160-400) X10*3/uL MPV (9.4-12.4) fL Immature Gran % (Auto) (0.0-0.4) % Neut % (Auto) (45-73) % Lymph % (Auto) (20-40) % [place] % (Auto) (2-11) % Eos % (Auto) (0-4) % Baso % (Auto) (0-2) % Lymph # (Auto) (1.2-4.9) X10*3/uL [place] # (Auto) (0.1-1.2) X10*3/uL Eos # (Auto) (0.0-0.4) X10*3/uL Baso # (Auto) (0.0-0.2) X10*3/uL Abs Immat Gran (auto) (0.00-0.03) X10*3/uL Absolute Neuts (auto) (2.0-8.3) X10*3/uL Absolute Nucleated RBC (0.0-0.012) X10*3/uL Nucleated RBC % (auto) (0.0-0.2) /100WBC PT 11.9 (10.8-13.0) SEC INR 1.0 (0.9-1.1) APTT 36.5 (24.1-38.0) SEC Sodium (135-145) mmol/L Potassium (3.3-5.1) mmol/L Chloride (96-108) mmol/L Carbon Dioxide (22-29) mmol/L Anion Gap (12-20) BUN (9-16) mg/dL Creatinine (0.5-1.4) mg/dL Estim Creat Clear Calc Estimated GFR Random Glucose (60-115) mg/dL Calcium (8.4-10.2) mg/dL Magnesium (1.6-2.6) mg/dL Total Bilirubin (0.0-1.0) mg/dL Direct Bilirubin (0.0-0.5) mg/dL AST (5-37) U/L ALT (0-40) U/L Alkaline Phosphatase (39-117) U/L Total Creatine Kinase (38-174) U/L Troponin I High Sens (<3.5-35.0) ng/L Total Protein (6.5-8.0) g/dL Albumin (3.5-5.0) g/dL Lipase (8-78) U/L Stool Occult Blood POSITIVE (NEGATIVE) Coronavirus (PCR) POSITIVE A (Negative) Influenza Type A (PCR) NEGATIVE (Negative) Influenza Type B (PCR) NEGATIVE (Negative) RSV RNA Qual (PCR) NEGATIVE (Negative) Discharge Plan Discharge Clinical Impression: GI bleed, COVID-19 Patient Disposition: Admitted As Inpatient Prescriptions: No Action labetalol 100 mg tablet 100 mg PO BID Qty: 30 RF: 0 ondansetron 4 mg tablet,disintegrating 4 mg PO Q6-8H PRN (Reason: nausea and vomiting) Qty: 14 RF: 0 oxycodone 20 mg Tablet 40 mg PO Q4H PRN (Reason: Pain) RF: 0
[2021-01-01 16:11] LABS: Alanine Aminotransferase 34 U/L (0-40); Albumin Level 2.3 g/dL (3.5-5.0); Alkaline Phosphatase 266 U/L (39-117); Anion Gap 13 (12-20); Aspartate Amino Transferase 45 U/L (5-37); Bilirubin Direct < 0.2 mg/dL (0.0-0.5); Bilirubin Total 0.2 mg/dL (0.0-1.0); Blood Urea Nitrogen 33 mg/dL (9-16); Calcium 7.9 mg/dL (8.4-10.2); Carbon Dioxide 18 mmol/L (22-29); Chloride 108 mmol/L (96-108); Estimated Glomerular Filt Rate 25; Glucose Random 377 mg/dL (60-115); Lipase 34 U/L (8-78); Magnesium 1.6 mg/dL (1.6-2.6); Sodium 134 mmol/L (135-145); Total Protein 6.4 g/dL (6.5-8.0)
[2021-01-01 16:17] LABS: Influenza A PCR NEGATIVE (Negative); Influenza B PCR NEGATIVE (Negative); Resp Syncy Virus RNA Qual PCR NEGATIVE (Negative); SARS COV2 PCR INHOUSE POSITIVE (Negative)
[2021-01-01] MEDS: Insulin Regular, Human 100 UNIT/ML 3 ML VIAL 10 UNIT SUBCUT (16:55)
[2021-01-01 17:37] LABS: D Dimer 445 NG/ML
[2021-01-01 17:41] LABS: C Reactive Protein 1.74 mg/dL (< or = 0.50); Lactate Dehydrogenase 219 U/L (118-273)
[2021-01-01] MEDS: 0.9 % Sodium Chloride 1,000 ML 999 ML IVCONT (18:03)
[2021-01-01] MEDS: Azithromycin 500 MG in 0.9 % Sodium Chloride 250 ML 125 MG IV (18:03)
--- NOTE | 2021-01-01 18:03 | PC.NURSE ---
Iv placed to left upper arm. IVF and IV antibiotics started. Hospitalist at bedside.
[2021-01-01 18:12] LABS: Procalcitonin 0.16 ng/mL
--- NOTE | 2021-01-01 18:20 | P.HPHOSP_ITS ---
History of Present Illness Date of Service: 01/01/21 Chief Complaint: cough; rectal bleeding + abdominal pain 45yo M with DM2, HTN, chronic pain syndrome, CKD3, bilateral BKA, CVA on DAPT with no residual deficit, HCV cirrhosis, and asthma who recently returned from a trip to [place] and comes to the ED with 2 days of cough, chest congestion, and wheezing. Multiple family members have similar symptoms and are being tested for COVID-19. He did receive the single-dose Abhay and Abhay COVID-19 vaccine on 10/26/20. Additionally, he has been reporting bilateral lower abdominal pain and small amounts of bright red blood per rectum for the past 2 1/2 weeks. In the ED, he tested positive for COVID-19 by [facility]. Hemoglobin was noted to be 9.8 compared to a baseline of around 11-12. CT of the abdomen and pelvis without contrast showed a 4.5 cm segment of distal transverse colon with circumferential wall thickening and luminal narrowing that could represent either spasm or colonic mass; there was also a masslike density near the ileocecal valve. Also demonstrated were splenomegaly and small upper abdominal varices but no ascites. The lung bases showed ground-glass opacities. 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 MCA territory CVA (09/04) with no residul deficits HCV cirrhosis HTN obesity chronic phantom limb pain syndrome PSHx: bilateral BKA FHx: grandfather had colon CA in his 60s; father had DM2 SHx: denies smoking or drug use; history of prior heroin abuse lives with spouse has BKA prostheses on disability Review of Systems Review of Systems: Yes all other systems are reviewed and are negative [facility] Medical History Amputated below knee Chronic kidney disease (CKD), stage III (moderate) Diabetes Hypertension Opiate abuse, episodic Surgical History History of shoulder surgery Social History Alcohol intake: never Substance Use Type: Opiates Advance Directives: Yes Advance Directives Information Provided: Yes Advance Directives on File: No Meds Allergies Allergy/AdvReac Type Severity Reaction Status Date / Time clindamycin [CLINDAMYCIN] Allergy Intermediate RASH ALL Verified 01/01/21 13:05 OVER SKIN ON BACK daptomycin [DAPTOMYCIN] Allergy Mild UNKNOWN Verified 01/01/21 13:05 doxycycline [DOXYCYCLINE] Allergy Mild HIVES Verified 01/01/21 13:05 vancomycin [VANCOMYCIN] Allergy Mild UNKNOWN Verified 01/01/21 13:05 amoxicillin Allergy Unknown Unknown Verified 01/01/21 13:05 cephalexin [From Keflex] Allergy Unknown HIVES Verified 01/01/21 13:05 penicillin V Allergy Unknown Unknown Verified 01/01/21 13:05 Sulfa (Sulfonamide Allergy Unknown Unknown Verified 01/01/21 13:05 Antibiotics) sulfamethoxazole Allergy Unknown HIVES Verified 01/01/21 13:05 [From Bactrim] trimethoprim [From Bactrim] Allergy Unknown HIVES Verified 01/01/21 13:05 Active Medications: Current Medications Generic Name Dose Route Start Last Admin Trade Name Freq PRN Reason Stop Dose Admin Acetaminophen 650 mg 01/01/21 18:14 Acetaminophen 325 Mg Tablet PO Q6H PRN Pain, Mild (Pain Scale 1-3) Heparin Sodium (Porcine) 5,000 unit 01/01/21 20:00 Heparin Sodium,Porcine 5,000 Unit/Ml Vial SUBCUT Q8H [facility] Hydralazine HCl 25 mg 01/01/21 21:00 Hydralazine Hcl 25 Mg Tablet PO TID [facility] Protocol Hydromorphone HCl 4 mg 01/01/21 17:51 Hydromorphone Hcl 4 Mg Tablet PO BEDTIME PRN pain Azithromycin 500 mg/ Sodium 250 mls @ 125 mls/hr 01/01/21 16:49 01/01/21 18:03 Chloride IV 01/01/21 18:48 125 mls/hr ONCE ONE Administration Insulin Human Lispro 0 unit 01/01/21 21:00 Insulin Lispro 100 Unit/Ml 3 Ml Vial SUBCUT QIDACHS [facility] Protocol Metoprolol Succinate 100 mg 01/02/21 09:00 Metoprolol Succinate Er 100 Mg Tab.Er.24h PO DAILY [facility] Protocol Ondansetron HCl 4 mg 01/01/21 18:14 Ondansetron Hcl 4 Mg/2 Ml Vial IVPUSH Q8H PRN Nausea and Vomiting Oxycodone HCl 40 mg 01/01/21 17:51 Oxycodone Hcl Immed Release 5 Mg Tablet PO Q4H PRN Pain Sodium Chloride 3 ml 01/02/21 00:00 0.9 % Sodium Chloride Flush 3 Ml [facility] Medications Medication Instructions Recorded Confirmed Last Taken Type oxycodone 40 mg PO Q4H PRN 06/08/20 01/01/21 01/01/21 History aspirin 1 tab PO DAILY 01/01/21 01/01/21 01/01/21 History clopidogrel 1 tab PO DAILY 01/01/21 01/01/21 01/01/21 History hydralazine 25 mg PO TID 01/01/21 01/01/21 01/01/21 History hydromorphone 1 tab PO BEDTIME PRN 01/01/21 01/01/21 Unknown History metoprolol succinate 100 mg PO DAILY 01/01/21 01/01/21 01/01/21 History Physical Exam Vital Signs and Narrative: Vital Signs: Last Vital Signs Temp 97.9 F 01/01/21 13:00 Pulse 91 01/01/21 15:40 Resp 16 01/01/21 13:00 BP 137/72 01/01/21 13:00 Pulse Ox 97 01/01/21 13:00 Body Mass Index 37.2 Gen: in no acute distress HEENT: sclera anicteric, moist mucus membranes Neck: supple Lungs: normal respiratory effort, diffuse expiratory wheezing Heart: regular rate and rhythm, no murmurs Abd: morbidly obese, soft, tender LLQ + RLQ without rebound or guarding Ext: no edema Skin: warm/well-perfused Neuro: alert and oriented x3, no focal findings Psych: appropriate affect Results Labs CBC and Chem 7: 01/01/21 15:24 01/01/21 15:24 Labs: Laboratory Results - last 24 hr 01/01/21 01/01/21 01/01/21 15:24 15:24 15:24 MCV 87.5 MCH 27.3 MCHC 31.2 RDW 14.6 Plt Count 121 L MPV 13.0 H Immature Gran % (Auto) 0.1 Neut % (Auto) 74.0 H Lymph % (Auto) 15.3 L [place] % (Auto) 10.4 Eos % (Auto) 0.1 Baso % (Auto) 0.1 Lymph # (Auto) 1.2 [place] # (Auto) 0.8 Eos # (Auto) 0.0 Baso # (Auto) 0.0 Abs Immat Gran (auto) 0.01 Absolute Neuts (auto) 5.9 Absolute Nucleated RBC 0.000 Nucleated RBC % (auto) 0.0 PT INR APTT D-Dimer Anion Gap 13 Estim Creat Clear Calc 49.0 Estimated GFR 25 Random Glucose 377 H* Calcium 7.9 L Magnesium 1.6 Total Bilirubin 0.2 Direct Bilirubin < 0.2 AST 45 H D ALT 34 Alkaline Phosphatase 266 H D Lactate Dehydrogenase 219 Total Creatine Kinase 71 Troponin I High Sens 37.0 H* C-Reactive Protein 1.74 H Total Protein 6.4 L Albumin 2.3 L Lipase 34 Procalcitonin Stool Occult Blood Coronavirus (PCR) Influenza Type A (PCR) Influenza Type B (PCR) RSV RNA Qual (PCR) 01/01/21 01/01/21 01/01/21 15:24 15:24 15:24 MCV MCH MCHC RDW Plt Count MPV Immature Gran % (Auto) Neut % (Auto) Lymph % (Auto) [place] % (Auto) Eos % (Auto) Baso % (Auto) Lymph # (Auto) [place] # (Auto) Eos # (Auto) Baso # (Auto) Abs Immat Gran (auto) Absolute Neuts (auto) Absolute Nucleated RBC Nucleated RBC % (auto) PT 11.9 INR 1.0 APTT 36.5 D-Dimer 445 Anion Gap Estim Creat Clear Calc Estimated GFR Random Glucose Calcium Magnesium Total Bilirubin Direct Bilirubin AST ALT Alkaline Phosphatase Lactate Dehydrogenase Total Creatine Kinase Troponin I High Sens C-Reactive Protein Total Protein Albumin Lipase Procalcitonin 0.16 Stool Occult Blood Coronavirus (PCR) POSITIVE A Influenza Type A (PCR) NEGATIVE Influenza Type B (PCR) NEGATIVE RSV RNA Qual (PCR) NEGATIVE 01/01/21 15:39 MCV MCH MCHC RDW Plt Count MPV Immature Gran % (Auto) Neut % (Auto) Lymph % (Auto) [place] % (Auto) Eos % (Auto) Baso % (Auto) Lymph # (Auto) [place] # (Auto) Eos # (Auto) Baso # (Auto) Abs Immat Gran (auto) Absolute Neuts (auto) Absolute Nucleated RBC Nucleated RBC % (auto) PT INR APTT D-Dimer Anion Gap Estim Creat Clear Calc Estimated GFR Random Glucose Calcium Magnesium Total Bilirubin Direct Bilirubin AST ALT Alkaline Phosphatase Lactate Dehydrogenase Total Creatine Kinase Troponin I High Sens C-Reactive Protein Total Protein Albumin Lipase Procalcitonin Stool Occult Blood POSITIVE Coronavirus (PCR) Influenza Type A (PCR) Influenza Type B (PCR) RSV RNA Qual (PCR) Imaging Radiologist's Impressions: Impressions Chest X-Ray 01/01/21 13:46 IMPRESSION: No evidence of acute disease. Abdomen/Pelvis CT 01/01/21 14:56 IMPRESSION: 1. Limited evaluation of the colon due to unprepped and noncontrast enhanced nature of the exam. As discussed above, there are 2 equivocal findings in the colon, one at the ileocecal valve region and one in the distal transverse colon, which will require further assessment in the setting of GI bleeding to exclude underlying malignancy. 2. No other acute intra-abdominal or pelvic findings. There are, however, several 2 to 5 mm bilateral pulmonary nodules and patchy groundglass opacities with airway thickening seen in the included lung bases, raising the suspicion of respiratory bronchiolitis or other infectious/inflammatory process. A neoplastic etiology is felt to be less likely, but cannot be excluded. Close clinical correlation and follow-up is recommended. 3. Liver cirrhosis with portal venous hypertension as evidenced by splenomegaly and small upper abdominal varices. No significant ascites is seen. Enlarged periportal lymph nodes are seen, likely reactive. 4. Other incidental findings include fatty atrophy of the pancreas, a chronically hydropic gallbladder, stable right renal cyst, and chronic mild superior endplate compression deformity of L1 and L2. Assessment and Plan (1) COVID-19: Status: Acute (2) GI bleed: Status: Acute 45yo M with DM2, HTN, chronic pain syndrome, CKD3, bilateral BKA, CVA on DAPT with no residual deficit, HCV cirrhosis, and asthma presenting with 2 days of cough, chest congestion, and wheezing along with 2 1/2 weeks of lower abdominal pain and rectal bleeding. He is found to be positive for COVID-19 though not hypoxic, and has been vaccinated against COVID-19. He is also noted to have findings on CT concerning for colonic masses. # Acute blood loss anemia # Lower GI bleed # Possible colon masses - Admit to I[facility]/isolation for COVID-19, monitor Hb, consult GI, T+S, hold DAPT. # COVID-19 pnemonia - Not hypoxic but will give steroids for asthma exacerbation. Trend inflammatory markers. Consult ID. No antibiotics indicated. # Asthma exacerbation - Prednisone 40 mg/d, prn albuterol HFA # Troponin elevation - Recheck 3-hour troponin. No chest pain; EKG with inferolateral T wave inversions present on prior EKG in November. Suspect due to CKD. # CKD3 - SCr around his baseline. Avoid nephrotoxins # HTN - continue hydralazine, metoprolol # Prior CVA - No residual deficit. Holding DAPT due to GIB. # DM2 - Check A1c. Correction-dose lispro. # HCV cirrhosis - Check HCV viral load. Monitor for signs of decompensations. Not currently coagulopathic or encephalopathic. # Chronic pain - Continue hydromorphone + oxycodone. No aberrant activity per [employer] review # VTE ppx - High risk; will place SCDs and give SQ UFH Quality Stroke Does the patient have a stroke diagnosis?: No VTE Prior VTE?: No VTE Risk Level:: Medical - moderate - high VTE Device Contraindication: N/A - Device Ordered VTE Drug Contraindication: N/A - Med Ordered
[2021-01-01 18:29] LABS: Glucose, Whole Blood 364 mg/dL (60-115)
[2021-01-01 19:00] VITALS: BP 145/78; PULSE 94; RESP 18; TEMP 36.8; O2SAT 100
[2021-01-01 19:09] LABS: Glucose, Whole Blood 318 mg/dL (60-115)
[2021-01-01] MEDS: predniSONE 20 MG TABLET 40 MG PO (19:51)
[2021-01-01] MEDS: oxyCODONE HCl Immed Release 5 MG TABLET 40 MG PO (19:52)
[2021-01-01 19:56] LABS: Troponin-I High Sensitivity 36.4 ng/L (<3.5-35.0)
--- NOTE | 2021-01-01 20:14 | PC.NURSE ---
Patient takes Oxycodone 40 mg q 4hr as well as dilauded 4 mg at bedtime per outgoing RN due to phantom pain bilaterally as patient is a bilateral AkA.
[2021-01-01 21:10] LABS: Glucose, Whole Blood 359 mg/dL (60-115)
[2021-01-01] MEDS: Insulin Lispro 100 UNIT/ML 3 ML VIAL SUBCUT (21:26)
[2021-01-01] MEDS: Heparin Sodium,Porcine 5,000 UNIT/ML VIAL 5000 UNIT SUBCUT (21:26)
[2021-01-01 21:27] VITALS: BP 174/72; PULSE 93
[2021-01-01] MEDS: hydrALAZINE HCl 25 MG TABLET PO (21:27)
[2021-01-01 21:51] LABS: Glucose Urine UA >=1000 MG/DL (NEG); Leukocyte Esterase Urine NEG (NEG); Nitrite Urine NEG (NEG); Specific Gravity - Urine 1.015 (1.005-1.025); Urine Blood 2+ (NEG); Urine Ketones NEG (NEG); Urine Protein 2+ MG/DL (NEG-TRACE)
[2021-01-01 21:53] LABS: Appearance Urine CLEAR; Color Urine STRAW
[2021-01-01 21:56] VITALS: BP 200/96; PULSE 92; RESP 18; TEMP 37.1; O2SAT 98
[2021-01-01 22:01] LABS: Bacteria Urine 1+ /LPF; Squamous Epithelial Cell Urine TRACE /LPF; UACC CULT YES
[2021-01-01 22:03] VITALS: BMI 36.8
[2021-01-01] MEDS: 0.9 % Sodium Chloride Flush 3 ML SYRINGE IVFLUSH (22:07)
[2021-01-02] VITALS (11 sets, daily range): BP systolic 164–204; BP diastolic 69–100; PULSE 80–96; RESP 15–20; TEMP 36.4–36.9; O2SAT 96–100; BMI 37.0
[2021-01-02] MEDS: oxyCODONE HCl Immed Release 5 MG TABLET 40 MG PO ×5 (00:11→20:32)
[2021-01-02] MEDS: Heparin Sodium,Porcine 5,000 UNIT/ML VIAL 5000 UNIT SUBCUT (04:31)
[2021-01-02 06:40] LABS: Estimated Average Glucose 286 mg/dL; Hemoglobin A1c % 11.6 %
[2021-01-02 06:43] LABS: Hematocrit 27.9 % (42-52); Hemoglobin 8.7 g/dl (14.0-18.0); Mean Corpuscular HGB Conc 31.2 g/dl (31.0-36.0); Mean Corpuscular Hemoglobin 27.4 pg (27.0-33.0); Mean Corpuscular Volume 87.7 fL (80-98); Platelet Count 98 X10*3/uL (160-400); Red Blood Count 3.18 X10*6/uL (4.60-5.80); Red Cell Distribution Width 14.1 % (11.0-16.0); White Blood Count 4.5 X10*3/uL (4.8-10.8)
[2021-01-02 06:55] LABS: Alanine Aminotransferase 27 U/L (0-40); Albumin Level 2.1 g/dL (3.5-5.0); Alkaline Phosphatase 225 U/L (39-117); Anion Gap 11 (12-20); Aspartate Amino Transferase 30 U/L (5-37); Bilirubin Total < 0.2 mg/dL (0.0-1.0); Blood Urea Nitrogen 34 mg/dL (9-16); Calcium 7.5 mg/dL (8.4-10.2); Carbon Dioxide 17 mmol/L (22-29); Chloride 110 mmol/L (96-108); Creatinine Clr Calc Pharmacy 49.7; Estimated Glomerular Filt Rate 26; Glucose Random 416 mg/dL (60-115); Potassium 4.9 mmol/L (3.3-5.1); Sodium 133 mmol/L (135-145); Total Protein 5.8 g/dL (6.5-8.0)
[2021-01-02 07:44] LABS: Glucose, Whole Blood 363 mg/dL (60-115)
[2021-01-02 07:56] LABS: HBS Num1 1.44 mIU/mL (0-7.99); HBc Num1 1.39 S/CO (0.00-0.79); HBsAGNum1 0.27 S/CO (0.00-0.99); HIV AB/AG Nonreactive (Nonreactive); HIV Num 1 0.07 S/CO (0.00-0.99); Hepatitis B Surface Antigen Negative (Negative); ~Hepatitis B Surface Antibody NONREACTIVE (Nonreactive)
[2021-01-02] MEDS: Metoprolol Succinate ER 50 MG TAB.ER.24H 150 MG PO (08:12)
[2021-01-02] MEDS: predniSONE 20 MG TABLET 40 MG PO (08:13)
[2021-01-02] MEDS: hydrALAZINE HCl 25 MG TABLET PO ×2 (08:13→14:36)
[2021-01-02] MEDS: Insulin Lispro 100 UNIT/ML 3 ML VIAL SUBCUT ×4 (08:14→22:07)
[2021-01-02] MEDS: 0.9 % Sodium Chloride Flush 3 ML SYRINGE IVFLUSH ×2 (08:14→12:41)
[2021-01-02] MEDS: Insulin Glargine,Hum.rec.anlog 100 UNIT/ML 10 ML VIAL 16 UNIT SUBCUT (08:15)
[2021-01-02 08:59] LABS: HBc Num2 1.83 S/CO; HBc Num3 1.81 S/CO; Hepatitis B Core Antibody Reactive (Nonreactive)
--- NOTE | 2021-01-02 09:20 | P.CNGI_ITS ---
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 Initialyl presented with 2 d hx of cough, sinus congestion and wheezing and found to be COVID pos inspite of receiving vaccination with JJ vaccine 10/2020. He has also been c/o rectal bleeding wih with LLQ crampy abdominal pain like intestines being twisted inside, worse with defecation and lasting for about 20 mins. Blood can be dripping or mixed wiht stool and is dark red in color, no melena. Going on for 2 months. No nausea or vomiting, no dysphagia or GERD sx. Never had EGD or colonoscopy. Stool consistency is variable. He Had CT which revealed possible spasm or colonic mass in distal transverse colon, possible mass like density near ileocecal valve as well. Cirrhosis also noted as well as varices and splenomegaly. lab with low HGB round 9 g/dl -baseline usu 11-12 g/dl up till November this year, stabilized at around 9 g/dl. Apparently externsl hemorrhoid noted by admitting team on rectal exam. Review of Systems Review of Systems: Constitutional: No Fever, + Chills, No Fatigue, No Malaise Cardiovascular: + Chest Pain when coughing, + SOB, No Palpitations Respiratory: + Cough, + Sputum, + Wheezing, No Smoke Exposure, + Dyspnea Gastrointestinal: No Nausea, No Vomiting, No Diarrhea, No Constipation, + Abdominal pain, + Hematochezia, No Melena, +hemorrhoids Genitourinary: No irregular bleeding, No Dysuria, No Urinary Frequency, No Hematuria, No Flank Pain Musculoskeletal: No joint pain, No Myalgias, No Joint Swelling Skin: No Skin Lesions, No rash Neuro: No Weakness, No Numbness, No Dizziness, No Headache Yes all other systems are reviewed and are negative [facility] Past Medical History Medical History Amputated below knee Chronic kidney disease (CKD), stage III (moderate) Diabetes Hypertension Opiate abuse, episodic Surgical History Surgical History History of shoulder surgery Social History Social History Household Members: None Housing: House Do you presently have visiting nurse or other home services: Yes ([employer], every day) Alcohol intake: unknown Patient Tobacco Use Status: Never used Tobacco e-Cigarette/Vaping Use: Never Used Use of substances other than those prescribed or required for medical reasons: No Substance Use Type: Opiates Currently Displaying Signs/Symptoms of Drug Intoxication Withdrawal: No Have you been hit, kicked, punched, or otherwise hurt by someone within the past year? If so, by whom?: No Do you feel safe in your current relationship?: Yes Is there a partner from a previous relationship who is making you feel unsafe now?: No Advance Directives: Yes Advance Directives Information Provided: Yes Advance Directives on File: No Advance Directives Date on File: 01/01/21 Do you have thoughts of harming others: None Do you have a plan to hurt others: No Plan Recently lost weight without trying: No Eating poorly because of decreased appetite: No Nutrition Risks: No Nutritional Risk Poor oral hygiene: No service: No Current occupational status: disabled Meds Allergies Allergy/AdvReac Type Severity Reaction Status Date / Time clindamycin [CLINDAMYCIN] Allergy Intermediate RASH ALL Verified 01/01/21 13:05 OVER SKIN ON BACK daptomycin [DAPTOMYCIN] Allergy Mild UNKNOWN Verified 01/01/21 13:05 doxycycline [DOXYCYCLINE] Allergy Mild HIVES Verified 01/01/21 13:05 vancomycin [VANCOMYCIN] Allergy Mild UNKNOWN Verified 01/01/21 13:05 amoxicillin Allergy Unknown Unknown Verified 01/01/21 13:05 cephalexin [From Keflex] Allergy Unknown HIVES Verified 01/01/21 13:05 penicillin V Allergy Unknown Unknown Verified 01/01/21 13:05 Sulfa (Sulfonamide Allergy Unknown Unknown Verified 01/01/21 13:05 Antibiotics) sulfamethoxazole Allergy Unknown HIVES Verified 01/01/21 13:05 [From Bactrim] trimethoprim [From Bactrim] Allergy Unknown HIVES Verified 01/01/21 13:05 Active Medications: Current Medications Generic Name Dose Route Start Last Admin Trade Name Freq PRN Reason Stop Dose Admin Acetaminophen 650 mg 01/01/21 18:14 Acetaminophen 325 Mg Tablet PO Q6H PRN Pain, Mild (Pain Scale 1-3) Albuterol Sulfate 4 puff 01/01/21 18:25 Albuterol Sulfate 90 Mcg 8 Gm Inhaler INHALE Q4H PRN shortness of breath or wheeze Heparin Sodium (Porcine) 5,000 unit 01/01/21 20:00 01/02/21 04:31 Heparin Sodium,Porcine 5,000 Unit/Ml Vial SUBCUT 5,000 unit Q8H DELMA Administration Hydralazine HCl 25 mg 01/01/21 21:00 01/02/21 08:13 Hydralazine Hcl 25 Mg Tablet PO 25 mg TID [facility] Administration Protocol Hydromorphone HCl 4 mg 01/01/21 17:51 Hydromorphone Hcl 4 Mg Tablet PO BEDTIME PRN pain Insulin Glargine 16 unit 01/02/21 09:00 01/02/21 08:15 Insulin Glargine,Hum.Rec.Anlog 100 Unit/Ml 10 Ml Vial SUBCUT 16 unit DAILY [facility] Administration Insulin Human Lispro 0 unit 01/01/21 21:00 01/02/21 08:14 Insulin Lispro 100 Unit/Ml 3 Ml Vial SUBCUT 12 unit QIDACHS [facility] Administration Protocol Metoprolol Succinate 150 mg 01/02/21 09:00 01/02/21 08:12 Metoprolol Succinate Er 50 Mg Tab.Er.24h PO 150 mg DAILY [facility] Administration Protocol Ondansetron HCl 4 mg 01/01/21 18:14 Ondansetron Hcl 4 Mg/2 Ml Vial IVPUSH Q8H PRN Nausea and Vomiting Oxycodone HCl 40 mg 01/01/21 17:51 01/02/21 06:18 Oxycodone Hcl Immed Release 5 Mg Tablet PO 40 mg Q4H PRN Administration Pain Prednisone 40 mg 01/01/21 18:25 01/02/21 08:13 Prednisone 20 Mg Tablet PO 40 mg DAILY [facility] Administration Sodium Chloride 3 ml 01/02/21 00:00 01/02/21 08:14 0.9 % Sodium Chloride Flush 3 Ml Syringe IVFLUSH 3 ml QSHIFT [facility] Administration Home Medications Medication Instructions Recorded Confirmed Last Taken Type oxycodone 40 mg PO Q4H PRN 06/08/20 01/01/2121 History aspirin 1 tab PO DAILY 01/01/21 01/01/21 01/01/21 History clopidogrel 1 tab PO DAILY 01/01/21 01/01/21 01/01/21 History hydralazine 25 mg PO TID 01/01/21 01/01/21 01/01/21 History hydromorphone 1 tab PO BEDTIME PRN 01/01/21 01/01/21 Unknown History metoprolol succinate 100 mg PO DAILY 01/01/21 01/01/21 01/01/21 History Humalog KwikPen Insulin 60 units SUBCUT TID 01/02/21 01/02/21 Unknown History Physical Exam Vital Signs: Vital Signs: Last Vital Signs Temp 97.5 F 01/02/21 07:46 Pulse 86 01/02/21 08:13 Resp 20 01/02/21 07:46 BP 204/95 H 01/02/21 08:13 Pulse Ox 98 01/02/21 07:46 Body Mass Index 37.0 Const: General: cooperative and no acute distress Orientation/consciousness: patient oriented x3 Limitations: no limitations HENMT: Head: Yes normal to inspection Ears: hearing grossly normal bilaterally General nose exam: Normal external nose present Face and sinus: Yes normal facial exam Eyes: General: appearance normal, both eyes and all related structures EOM: EOMs intact bilaterally Neck: Neck: Yes normal visual inspection and Yes no meningeal signs Resp: Effort & Inspection: normal respiratory effort Auscultation: wheezes expiratory wheezes and throughout Cardio: Rate: regular rate Heart sounds: S1 normal heart sound present and S2 normal heart sound present GI: Inspection: Yes normal to inspection Palpation (GI): Soft to palpation, Tenderness to palpation present (GI) (diffusely), no guarding and not rigid : General: Yes no CVA tenderness Back/Spine/Pelvis: Back: no CVA tenderness Skin: Rashes: no rashes Wounds: no wounds Neuro: General: patient oriented x3 and no meningeal signs Extrem: Other: amputations noted Results Labs CBC & Chem 7: 01/02/21 05:35 01/02/21 05:35 Labs: Short CBC 01/01/21 01/02/21 Range/Units 15:24 05:35 WBC 7.9 4.5 L (4.8-10.8) X10*3/uL Hgb 9.8 L 8.7 L (14.0-18.0) g/dl Hct 31.4 L 27.9 L (42-52) % Plt Count 121 L 98 L (160-400) X10*3/uL BMP 01/01/21 01/02/21 15:24 05:35 Sodium 134 L 133 L Potassium 5.0 4.9 Chloride 108 110 H Carbon Dioxide 18 L 17 L BUN 33 H 34 H Creatinine 2.74 H 2.70 H Calcium 7.9 L 7.5 L Cardiac Enzymes 01/01/21 Range/Units 15:24 Total Creatine Kinase 71 (38-174) U/L Liver Function 01/01/21 01/02/21 Range/Units 15:24 05:35 Total Bilirubin 0.2 < 0.2 (0.0-1.0) mg/dL Direct Bilirubin < 0.2 (0.0-0.5) mg/dL AST 45 H D 30 (5-37) U/L ALT 34 27 (0-40) U/L Alkaline Phosphatase 266 H D 225 H (39-117) U/L Albumin 2.3 L 2.1 L (3.5-5.0) g/dL Urine 01/01/21 Range/Units 21:33 Urine Color STRAW Urine Appearance CLEAR Urine pH 6.0 (5.0-8.0) Ur Specific [place] 1.015 (1.005-1.025) Urine Protein 2+ H (NEG-TRACE) MG/DL Urine Glucose (UA) >=1000 H (NEG) MG/DL CT personally reviewed--varices noted, cirrhotic liver, thickened colon in transverse Assessment and Plan (1) GI bleed: Status: Acute 1/ Anemia, multifactorial from GI blood losses, hypersplenism, malnutrition and CKD. HGB has remained stable last [address] with concerning findings as noted-possible mass in colon and varices. he is also on DPT for his vascular disease. PLAN: 1/ Would prefer him to recover from COVID and can plan for EGD/colon in about 2 weeks or so. If clinical scenario changes and he has an urgent need then can do earlier. 2/ meantime would keep on low dose PPI 3/ o/p f/u to discuss hep c treatment Procedures Date of Service Date of Service: 01/02/21
[2021-01-02 11:27] LABS: Glucose, Whole Blood 339 mg/dL (60-115)
--- NOTE | 2021-01-02 12:33 | P.PNIM_ITS ---
Subjective Subjective Date of Service: 01/02/21 Interval History: c/o wheezing, cough not hypoxic no further BRBPR Physical Exam Vital Signs: Vital Signs: Last Vital Signs Temp 98.4 F 01/02/21 11:16 Pulse 85 01/02/21 11:16 Resp 20 01/02/21 11:16 BP 198/88 H 01/02/21 11:16 Pulse Ox 98 01/02/21 11:16 Body Mass Index 37.0 Gen: in no acute distress HEENT: sclera anicteric, moist mucus membranes Neck: supple Lungs: normal respiratory effort, diffuse expiratory wheezing Heart: regular rate and rhythm, no murmurs Abd: morbidly obese, soft, tender LLQ + RLQ without rebound or guarding Ext: bilateral BKA Skin: warm/well-perfused Neuro: alert and oriented x3, no focal findings Psych: appropriate affect Objective Data Current Medications Generic Name Dose Route Start Last Admin Trade Name Freq PRN Reason Stop Dose Admin Acetaminophen 650 mg 01/01/21 18:14 Acetaminophen 325 Mg Tablet PO Q6H PRN Pain, Mild (Pain Scale 1-3) Albuterol Sulfate 4 puff 01/01/21 18:25 Albuterol Sulfate 90 Mcg 8 Gm Inhaler INHALE Q4H PRN shortness of breath or wheeze Heparin Sodium (Porcine) 5,000 unit 01/01/21 20:00 01/02/21 04:31 Heparin Sodium,Porcine 5,000 Unit/Ml Vial SUBCUT 5,000 unit Q8H [facility] Administration Hydralazine HCl 25 mg 01/01/21 21:00 01/02/21 08:13 Hydralazine Hcl 25 Mg Tablet PO 25 mg TID [facility] Administration Protocol Hydromorphone HCl 4 mg 01/01/21 17:51 Hydromorphone Hcl 4 Mg Tablet PO BEDTIME PRN pain Insulin Glargine 40 unit 01/03/21 09:00 Insulin Glargine,Hum.Rec.Anlog 100 Unit/Ml 10 Ml Vial SUBCUT DAILY [facility] Insulin Human Lispro 0 unit 01/01/21 21:00 01/02/21 08:14 Insulin Lispro 100 Unit/Ml 3 Ml Vial SUBCUT 12 unit QIDACHS [facility] Administration Protocol Insulin Human Lispro 45 unit 01/02/21 16:30 Insulin Lispro 100 Unit/Ml 3 Ml Vial SUBCUT QIDACHS [facility] Metoprolol Succinate 150 mg 01/02/21 09:00 01/02/21 08:12 Metoprolol Succinate Er 50 Mg Tab.Er.24h PO 150 mg DAILY [facility] Administration Protocol Ondansetron HCl 4 mg 01/01/21 18:14 Ondansetron Hcl 4 Mg/2 Ml Vial IVPUSH Q8H PRN Nausea and Vomiting Oxycodone HCl 40 mg 01/01/21 17:51 01/02/21 10:49 Oxycodone Hcl Immed Release 5 Mg Tablet PO 40 mg Q4H PRN Administration Pain Prednisone 40 mg 01/01/21 18:25 01/02/21 08:13 Prednisone 20 Mg Tablet PO 40 mg DAILY [facility] Administration Sodium Chloride 3 ml 01/02/21 00:00 01/02/21 08:14 0.9 % Sodium Chloride Flush 3 Ml Syringe IVFLUSH 3 ml QSHIFT [facility] Administration Labs CBC & Chem 7: 01/02/21 05:35 01/02/21 05:35 Labs: Laboratory Results - last 24 hr 01/01/21 01/01/21 01/01/21 15:24 15:24 15:24 WBC 7.9 RBC 3.59 L Hgb 9.8 L Hct 31.4 L MCV 87.5 MCH 27.3 MCHC 31.2 RDW 14.6 Plt Count 121 L MPV 13.0 H Immature Gran % (Auto) 0.1 Neut % (Auto) 74.0 H Lymph % (Auto) 15.3 L Turner % (Auto) 10.4 Eos % (Auto) 0.1 Baso % (Auto) 0.1 Lymph # (Auto) 1.2 Turner # (Auto) 0.8 Eos # (Auto) 0.0 Baso # (Auto) 0.0 Abs Immat Gran (auto) 0.01 Absolute Neuts (auto) 5.9 Absolute Nucleated RBC 0.000 Nucleated RBC % (auto) 0.0 PT INR APTT D-Dimer Sodium 134 L Potassium 5.0 Chloride 108 Carbon Dioxide 18 L Anion Gap 13 BUN 33 H Creatinine 2.74 H Estim Creat Clear Calc 49.0 Estimated GFR 25 POC Glucose Random Glucose 377 H* Estimat Average Glucose Hemoglobin A1c % Calcium 7.9 L Magnesium 1.6 Total Bilirubin 0.2 Direct Bilirubin < 0.2 AST 45 H D ALT 34 Alkaline Phosphatase 266 H D Lactate Dehydrogenase 219 Total Creatine Kinase 71 Troponin I High Sens 37.0 H* C-Reactive Protein 1.74 H Total Protein 6.4 L Albumin 2.3 L Lipase 34 Procalcitonin Urine Color Urine Appearance Urine pH Ur Specific [place] Urine Protein Urine Glucose (UA) Urine Ketones Urine Blood Urine Nitrite Ur Leukocyte Esterase Urine RBC Urine WBC Ur Squamous Epith Cells Urine Bacteria Stool Occult Blood Coronavirus (PCR) Hep Bs Antigen Hep Bs Antibody Hep B Core Total Ab HIV 1&2 Ab/P24 Ag 4thGn Influenza Type A (PCR) Influenza Type B (PCR) RSV RNA Qual (PCR) Blood Type Antibody Screen 01/01/21 01/01/21 01/01/21 15:24 15:24 15:24 WBC RBC Hgb Hct MCV MCH MCHC RDW Plt Count MPV Immature Gran % (Auto) Neut % (Auto) Lymph % (Auto) Turner % (Auto) Eos % (Auto) Baso % (Auto) Lymph # (Auto) Turner # (Auto) Eos # (Auto) Baso # (Auto) Abs Immat Gran (auto) Absolute Neuts (auto) Absolute Nucleated RBC Nucleated RBC % (auto) PT 11.9 INR 1.0 APTT 36.5 D-Dimer 445 Sodium Potassium Chloride Carbon Dioxide Anion Gap BUN Creatinine Estim Creat Clear Calc Estimated GFR POC Glucose Random Glucose Estimat Average Glucose Hemoglobin A1c % Calcium Magnesium Total Bilirubin Direct Bilirubin AST ALT Alkaline Phosphatase Lactate Dehydrogenase Total Creatine Kinase Troponin I High Sens C-Reactive Protein Total Protein Albumin Lipase Procalcitonin 0.16 Urine Color Urine Appearance Urine pH Ur Specific [place] Urine Protein Urine Glucose (UA) Urine Ketones Urine Blood Urine Nitrite Ur Leukocyte Esterase Urine RBC Urine WBC Ur Squamous Epith Cells Urine Bacteria Stool Occult Blood Coronavirus (PCR) POSITIVE A Hep Bs Antigen Hep Bs Antibody Hep B Core Total Ab HIV 1&2 Ab/P24 Ag 4thGn Influenza Type A (PCR) NEGATIVE Influenza Type B (PCR) NEGATIVE RSV RNA Qual (PCR) NEGATIVE Blood Type Antibody Screen 01/01/21 01/01/21 01/01/21 15:39 16:52 18:53 WBC RBC Hgb Hct MCV MCH MCHC RDW Plt Count MPV Immature Gran % (Auto) Neut % (Auto) Lymph % (Auto) Turner % (Auto) Eos % (Auto) Baso % (Auto) Lymph # (Auto) Turner # (Auto) Eos # (Auto) Baso # (Auto) Abs Immat Gran (auto) Absolute Neuts (auto) Absolute Nucleated RBC Nucleated RBC % (auto) PT INR APTT D-Dimer Sodium Potassium Chloride Carbon Dioxide Anion Gap BUN Creatinine Estim Creat Clear Calc Estimated GFR POC Glucose 364 H* Random Glucose Estimat Average Glucose Hemoglobin A1c % Calcium Magnesium Total Bilirubin Direct Bilirubin AST ALT Alkaline Phosphatase Lactate Dehydrogenase Total Creatine Kinase Troponin I High Sens 36.4 H* C-Reactive Protein Total Protein Albumin Lipase Procalcitonin Urine Color Urine Appearance Urine pH Ur Specific [place] Urine Protein Urine Glucose (UA) Urine Ketones Urine Blood Urine Nitrite Ur Leukocyte Esterase Urine RBC Urine WBC Ur Squamous Epith Cells Urine Bacteria Stool Occult Blood POSITIVE Coronavirus (PCR) Hep Bs Antigen Hep Bs Antibody Hep B Core Total Ab HIV 1&2 Ab/P24 Ag 4thGn Influenza Type A (PCR) Influenza Type B (PCR) RSV RNA Qual (PCR) Blood Type Antibody Screen 01/01/21 01/01/21 01/01/21 18:53 18:59 19:18 WBC RBC Hgb Hct MCV MCH MCHC RDW Plt Count MPV Immature Gran % (Auto) Neut % (Auto) Lymph % (Auto) Turner % (Auto) Eos % (Auto) Baso % (Auto) Lymph # (Auto) Turner # (Auto) Eos # (Auto) Baso # (Auto) Abs Immat Gran (auto) Absolute Neuts (auto) Absolute Nucleated RBC Nucleated RBC % (auto) PT INR APTT D-Dimer Sodium Potassium Chloride Carbon Dioxide Anion Gap BUN Creatinine Estim Creat Clear Calc Estimated GFR POC Glucose 318 H Random Glucose Estimat Average Glucose Hemoglobin A1c % Calcium Magnesium Total Bilirubin Direct Bilirubin AST ALT Alkaline Phosphatase Lactate Dehydrogenase Total Creatine Kinase Troponin I High Sens C-Reactive Protein Total Protein Albumin Lipase Procalcitonin Urine Color Urine Appearance Urine pH Ur Specific [place] Urine Protein Urine Glucose (UA) Urine Ketones Urine Blood Urine Nitrite Ur Leukocyte Esterase Urine RBC Urine WBC Ur Squamous Epith Cells Urine Bacteria Stool Occult Blood Coronavirus (PCR) Hep Bs Antigen Hep Bs Antibody Hep B Core Total Ab HIV 1&2 Ab/P24 Ag 4thGn Influenza Type A (PCR) Influenza Type B (PCR) RSV RNA Qual (PCR) Blood Type Cancelled A Positive Antibody Screen Cancelled NEGATIVE 01/01/21 01/01/21 01/02/21 21:05 21:33 05:34 WBC RBC Hgb Hct MCV MCH MCHC RDW Plt Count MPV Immature Gran % (Auto) Neut % (Auto) Lymph % (Auto) Turner % (Auto) Eos % (Auto) Baso % (Auto) Lymph # (Auto) Turner # (Auto) Eos # (Auto) Baso # (Auto) Abs Immat Gran (auto) Absolute Neuts (auto) Absolute Nucleated RBC Nucleated RBC % (auto) PT INR APTT D-Dimer Sodium Potassium Chloride Carbon Dioxide Anion Gap BUN Creatinine Estim Creat Clear Calc Estimated GFR POC Glucose 359 H* Random Glucose Estimat Average Glucose Hemoglobin A1c % Calcium Magnesium Total Bilirubin Direct Bilirubin AST ALT Alkaline Phosphatase Lactate Dehydrogenase Total Creatine Kinase Troponin I High Sens C-Reactive Protein Total Protein Albumin Lipase Procalcitonin Urine Color STRAW Urine Appearance CLEAR Urine pH 6.0 Ur Specific [place] 1.015 Urine Protein 2+ H Urine Glucose (UA) >=1000 H Urine Ketones NEG Urine Blood 2+ H Urine Nitrite NEG Ur Leukocyte Esterase NEG Urine RBC 15-29 H Urine WBC 5-9 H Ur Squamous Epith Cells TRACE Urine Bacteria 1+ Stool Occult Blood Coronavirus (PCR) Hep Bs Antigen Negative Hep Bs Antibody NONREACTIVE Hep B Core Total Ab Reactive HIV 1&2 Ab/P24 Ag 4thGn Nonreactive Influenza Type A (PCR) Influenza Type B (PCR) RSV RNA Qual (PCR) Blood Type Antibody Screen 01/02/21 01/02/21 01/02/21 05:35 05:35 05:35 WBC 4.5 L RBC 3.18 L Hgb 8.7 L Hct 27.9 L MCV 87.7 MCH 27.4 MCHC 31.2 RDW 14.1 Plt Count 98 L MPV 13.0 H Immature Gran % (Auto) Neut % (Auto) Lymph % (Auto) Turner % (Auto) Eos % (Auto) Baso % (Auto) Lymph # (Auto) [place] # (Auto) Eos # (Auto) Baso # (Auto) Abs Immat Gran (auto) Absolute Neuts (auto) Absolute Nucleated RBC 0.000 Nucleated RBC % (auto) 0.0 PT INR APTT D-Dimer Sodium 133 L Potassium 4.9 Chloride 110 H Carbon Dioxide 17 L Anion Gap 11 L BUN 34 H Creatinine 2.70 H Estim Creat Clear Calc 49.7 Estimated GFR 26 POC Glucose Random Glucose 416 H* Estimat Average Glucose 286 Hemoglobin A1c % 11.6 Calcium 7.5 L Magnesium Total Bilirubin < 0.2 Direct Bilirubin AST 30 ALT 27 Alkaline Phosphatase 225 H Lactate Dehydrogenase Total Creatine Kinase Troponin I High Sens C-Reactive Protein Total Protein 5.8 L Albumin 2.1 L Lipase Procalcitonin Urine Color Urine Appearance Urine pH Ur Specific [place] Urine Protein Urine Glucose (UA) Urine Ketones Urine Blood Urine Nitrite Ur Leukocyte Esterase Urine RBC Urine WBC Ur Squamous Epith Cells Urine Bacteria Stool Occult Blood Coronavirus (PCR) Hep Bs Antigen Hep Bs Antibody Hep B Core Total Ab HIV 1&2 Ab/P24 Ag 4thGn Influenza Type A (PCR) Influenza Type B (PCR) RSV RNA Qual (PCR) Blood Type Antibody Screen 01/02/21 01/02/21 07:27 11:15 WBC RBC Hgb Hct MCV MCH MCHC RDW Plt Count MPV Immature Gran % (Auto) Neut % (Auto) Lymph % (Auto) [place] % (Auto) Eos % (Auto) Baso % (Auto) Lymph # (Auto) [place] # (Auto) Eos # (Auto) Baso # (Auto) Abs Immat Gran (auto) Absolute Neuts (auto) Absolute Nucleated RBC Nucleated RBC % (auto) PT INR APTT D-Dimer Sodium Potassium Chloride Carbon Dioxide Anion Gap BUN Creatinine Estim Creat Clear Calc Estimated GFR POC Glucose 363 H* 339 H Random Glucose Estimat Average Glucose Hemoglobin A1c % Calcium Magnesium Total Bilirubin Direct Bilirubin AST ALT Alkaline Phosphatase Lactate Dehydrogenase Total Creatine Kinase Troponin I High Sens C-Reactive Protein Total Protein Albumin Lipase Procalcitonin Urine Color Urine Appearance Urine pH Ur Specific [place] Urine Protein Urine Glucose (UA) Urine Ketones Urine Blood Urine Nitrite Ur Leukocyte Esterase Urine RBC Urine WBC Ur Squamous Epith Cells Urine Bacteria Stool Occult Blood Coronavirus (PCR) Hep Bs Antigen Hep Bs Antibody Hep B Core Total Ab HIV 1&2 Ab/P24 Ag 4thGn Influenza Type A (PCR) Influenza Type B (PCR) RSV RNA Qual (PCR) Blood Type Antibody Screen Microbiology Microbiology Results: Microbiology 01/01/21 22:02 Urine Culture - Final Urine clean catch - Clean Catch Midstream Strep agalactiae (Grp B) Quality Stroke Does the patient have a stroke diagnosis?: No VTE Prior VTE?: No VTE Risk Level:: Medical - moderate - high VTE Device Contraindication: N/A - Device Ordered VTE Drug Contraindication: N/A - Med Ordered Assessment and Plan (1) COVID-19: Status: Acute (2) GI bleed: Status: Acute Assessment and Plan: hospital d#2 45yo M c DM2, HTN, chronic pain syndrome, CKD3, bilateral BKA, CVA on DAPT with no residual deficit, HCV cirrhosis, and asthma presenting with 2 days of cough, chest congestion, and wheezing and 2 1/2 weeks of lower abdominal pain and rectal bleeding positive for COVID-[address] findings concerning for colonic masses # acute blood loss anemia # lower GI bleed/BRBPR # possible colon masses - monitor H+H, T+S active, DAPT held, GI consult pending # COVID-19 pneumonia - on isolation; not hypoxic but giving steroids for asthma exacerbation; trend inflammatory markers; ID consult pending # asthma exacerbation - prednisone 40 mg/d d#2, prn albuterol HFA # troponin elevation - flat at 3-hr recheck; no chest pain; EKG with old inferolateral T wave inversions; suspect due to CKD, not ACS # CKD3 - SCr around his baseline. Avoid nephrotoxins # HTN - continue hydralazine, metoprolol # prior CVA - no residual deficit; held DAPT due to GIB. # DM2, A1c 11.6 - basal/bolus insulin. pt is extremely insulin resistant. # HCV cirrhosis - HCV viral load pending; HIV negative; isolated anti-HBc - monitor for signs of decompensation; not currently coagulopathic or encephalopathic # chronic pain syndrome - continue hydromorphone + oxycodone; no aberrant activity per MassPAT review # VTE ppx - no UFH due to GIB. unable to place SCDs due to bilateral BKAs
[2021-01-02] MEDS: Insulin Lispro 100 UNIT/ML 3 ML VIAL 45 UNIT SUBCUT (12:40)
--- NOTE | 2021-01-02 12:44 | MHC.CM.PN ---
Male 45 DX Covid+ colon Masses. He lives alone with assist from [facility]. He requires assist with ADLs. A cane for ambulating short distances. He uses a Scooter for long distance. DP home with resumption of [employer]. Patient has a ride to home. If he needs VNA he will accept. He does not anticipate a need for discharge. CM will follow.
[2021-01-02] MEDS: Albuterol Sulfate 90 MCG 8 GM INHALER 4 PUFF INHALE (13:38)
--- NOTE | 2021-01-02 15:07 | W.PM.IDCN ---
History of Present Illness Data of Consult Service Date: 01/02/21 Requesting physician: Armond Coelho Primary Care Provider: Unknown Physician HPI Reason for consult: COVID He presents to hospital with shortness of breath for two weeks He has also rectal bleed He has cough and congestion He has no oxygen needs PMFSH Past Medical History Medical History Amputated below knee Chronic kidney disease (CKD), stage III (moderate) Diabetes Hypertension Opiate abuse, episodic Family History Family history: reviewed and not pertinent Surgical History Surgical History History of shoulder surgery Social History Social History Household Members: None Housing: House Do you presently have visiting nurse or other home services: Yes ([employer], every day) Alcohol intake: unknown Patient Tobacco Use Status: Never used Tobacco e-Cigarette/Vaping Use: Never Used Use of substances other than those prescribed or required for medical reasons: No Substance Use Type: Opiates Currently Displaying Signs/Symptoms of Drug Intoxication Withdrawal: No Have you been hit, kicked, punched, or otherwise hurt by someone within the past year? If so, by whom?: No Do you feel safe in your current relationship?: Yes Is there a partner from a previous relationship who is making you feel unsafe now?: No Advance Directives: Yes Advance Directives Information Provided: Yes Advance Directives on File: No Advance Directives Date on File: 01/01/21 Do you have thoughts of harming others: None Do you have a plan to hurt others: No Plan Recently lost weight without trying: No Eating poorly because of decreased appetite: No Nutrition Risks: No Nutritional Risk Poor oral hygiene: No service: No Current occupational status: disabled Meds Allergies Allergy/AdvReac Type Severity Reaction Status Date / Time clindamycin [CLINDAMYCIN] Allergy Intermediate RASH ALL Verified 01/01/21 13:05 OVER SKIN ON BACK daptomycin [DAPTOMYCIN] Allergy Mild UNKNOWN Verified 01/01/21 13:05 doxycycline [DOXYCYCLINE] Allergy Mild HIVES Verified 01/01/21 13:05 vancomycin [VANCOMYCIN] Allergy Mild UNKNOWN Verified 01/01/21 13:05 amoxicillin Allergy Unknown Unknown Verified 01/01/21 13:05 cephalexin [From Keflex] Allergy Unknown HIVES Verified 01/01/21 13:05 penicillin V Allergy Unknown Unknown Verified 01/01/21 13:05 Sulfa (Sulfonamide Allergy Unknown Unknown Verified 01/01/21 13:05 Antibiotics) sulfamethoxazole Allergy Unknown HIVES Verified 01/01/21 13:05 [From Bactrim] trimethoprim [From Bactrim] Allergy Unknown HIVES Verified 01/01/21 13:05 Active Medications: Current Medications Generic Name Dose Route Start Last Admin Trade Name Freq PRN Reason Stop Dose Admin Acetaminophen 650 mg 01/01/21 18:14 Acetaminophen 325 Mg Tablet PO Q6H PRN Pain, Mild (Pain Scale 1-3) Albuterol Sulfate 4 puff 01/01/21 18:25 01/02/21 13:38 Albuterol Sulfate 90 Mcg 8 Gm Inhaler INHALE 4 puff Q4H PRN Administration shortness of breath or wheeze Docusate Sodium 100 mg 01/02/21 14:00 01/02/21 14:39 Docusate Sodium 100 Mg Capsule PO Not Given BID [facility] Hydralazine HCl 25 mg 01/01/21 21:00 01/02/21 14:36 Hydralazine Hcl 25 Mg Tablet PO 25 mg TID [facility] Administration Protocol Hydromorphone HCl 4 mg 01/01/21 17:51 Hydromorphone Hcl 4 Mg Tablet PO BEDTIME PRN pain Insulin Glargine 40 unit 01/03/21 09:00 Insulin Glargine,Hum.Rec.Anlog 100 Unit/Ml 10 Ml Vial SUBCUT DAILY [facility] Insulin Human Lispro 0 unit 01/01/21 21:00 01/02/21 12:40 Insulin Lispro 100 Unit/Ml 3 Ml Vial SUBCUT 10 unit QIDACHS [facility] Administration Protocol Insulin Human Lispro 45 unit 01/02/21 16:30 01/02/21 12:40 Insulin Lispro 100 Unit/Ml 3 Ml Vial SUBCUT 45 unit QIDACHS [facility] Administration Metoprolol Succinate 150 mg 01/02/21 09:00 01/02/21 08:12 Metoprolol Succinate Er 50 Mg Tab.Er.24h PO 150 mg DAILY [facility] Administration Protocol Ondansetron HCl 4 mg 01/01/21 18:14 Ondansetron Hcl 4 Mg/2 Ml Vial IVPUSH Q8H PRN Nausea and Vomiting Oxycodone HCl 40 mg 01/01/21 17:51 01/02/21 14:37 Oxycodone Hcl Immed Release 5 Mg Tablet PO 40 mg Q4H PRN Administration Pain Polyethylene Glycol 17 gm 01/02/21 14:00 01/02/21 14:39 Polyethylene Glycol 3350 17 Gm Powd.Pack PO Not Given DAILY [facility] Prednisone 40 mg 01/01/21 18:25 01/02/21 08:13 Prednisone 20 Mg Tablet PO 40 mg DAILY [facility] Administration Sodium Chloride 3 ml 01/02/21 00:00 01/02/21 12:41 0.9 % Sodium Chloride Flush 3 Ml Syringe IVFLUSH 3 ml QSHIFT [facility] Administration Home Medications Medication Instructions Recorded Confirmed Last Taken Type oxycodone 40 mg PO Q4H PRN 06/08/20 01/01/21 01/01/21 History aspirin 1 tab PO DAILY 01/01/21 01/01/21 01/01/21 History clopidogrel 1 tab PO DAILY 01/01/21 01/01/21 01/01/21 History hydralazine 25 mg PO TID 01/01/21 01/01/21 01/01/21 History hydromorphone 1 tab PO BEDTIME PRN 01/01/21 01/01/21 Unknown History metoprolol succinate 100 mg PO DAILY 01/01/21 01/01/21 01/01/21 History Humalog KwikPen Insulin 60 units SUBCUT TID 01/02/21 01/02/21 Unknown History Physical Exam Vital Signs: Vital Signs: Last Vital Signs Temp 98.4 F 01/02/21 11:16 Pulse 85 01/02/21 14:36 Resp 20 01/02/21 11:16 BP 198/88 H 01/02/21 14:36 Pulse Ox 98 01/02/21 11:16 Body Mass Index 37.0 Const: General: cooperative HENMT: Mouth: Normal oral and palatal mucosa present Resp: Effort & Inspection: normal respiratory effort Cardio: Rate: regular rate Rhythm: regular rhythm GI: Palpation (GI): nontender Extrem: General: Yes normal to inspection Results Labs CBC & Chem 7: 01/02/21 05:35 01/02/21 05:35 Labs: Short CBC 01/01/21 01/02/21 Range/Units 15:24 05:35 WBC 7.9 4.5 L (4.8-10.8) X10*3/uL Hgb 9.8 L 8.7 L (14.0-18.0) g/dl Hct 31.4 L 27.9 L (42-52) % Plt Count 121 L 98 L (160-400) X10*3/uL BMP 01/01/21 01/02/21 15:24 05:35 Sodium 134 L 133 L Potassium 5.0 4.9 Chloride 108 110 H Carbon Dioxide 18 L 17 L BUN 33 H 34 H Creatinine 2.74 H 2.70 H Calcium 7.9 L 7.5 L Cardiac Enzymes 01/01/21 Range/Units 15:24 Total Creatine Kinase 71 (38-174) U/L Liver Function 01/01/21 01/02/21 Range/Units 15:24 05:35 Total Bilirubin 0.2 < 0.2 (0.0-1.0) mg/dL Direct Bilirubin < 0.2 (0.0-0.5) mg/dL AST 45 H D 30 (5-37) U/L ALT 34 27 (0-40) U/L Alkaline Phosphatase 266 H D 225 H (39-117) U/L Albumin 2.3 L 2.1 L (3.5-5.0) g/dL Urine 01/01/21 Range/Units 21:33 Urine Color STRAW Urine Appearance CLEAR Urine pH 6.0 (5.0-8.0) Ur Specific [place] 1.015 (1.005-1.025) Urine Protein 2+ H (NEG-TRACE) MG/DL Urine Glucose (UA) >=1000 H (NEG) MG/DL Microbiology Microbiology Results: Microbiology 01/01/21 22:02 Urine clean catch - Clean Catch Midstream Urine Culture - Final Strep agalactiae (Grp B) Assessment and Plan (1) COVID-19: Status: Acute no hypoxia He has GI concerns/bleed ? due to COVID NO Remdesivir May continue steroids as needed (2) GI bleed: Status: Acute
[2021-01-02 16:06] LABS: Glucose, Whole Blood 417 mg/dL (60-115)
[2021-01-02] MEDS: Insulin Lispro 100 UNIT/ML 3 ML VIAL 60 UNIT SUBCUT (16:51)
[2021-01-02] MEDS: hydrALAZINE HCl 50 MG TABLET PO (20:33)
[2021-01-02] MEDS: Docusate Sodium 100 MG CAPSULE PO (20:33)
[2021-01-02 20:36] LABS: Glucose, Whole Blood 216 mg/dL (60-115)
[2021-01-02 22:20] LABS: Glucose, Whole Blood 155 mg/dL (60-115)
[2021-01-03] VITALS (11 sets, daily range): BP systolic 133–200; BP diastolic 67–88; PULSE 81–104; RESP 14–21; TEMP 36.4–37.5; O2SAT 95–98; BMI 37.5
[2021-01-03] MEDS: 0.9 % Sodium Chloride Flush 3 ML SYRINGE IVFLUSH ×3 (00:25→18:09)
[2021-01-03] MEDS: oxyCODONE HCl Immed Release 5 MG TABLET 40 MG PO ×4 (00:25→20:17)
--- NOTE | 2021-01-03 01:00 | MHC.PIE ---
P.BP 182/81 I.ELEVATED BP REPORTED TO .ORDER FOR NORVASC 5MG PO NOW X 1 GIVEN.PT UPDATED.MED GIVEN E.CONT TO MONITOR
[2021-01-03] MEDS: amLODIPine Besylate 5 MG TABLET PO (01:07)
--- NOTE | 2021-01-03 05:00 | MHC.PIE ---
P.BP 180/83 I.ELEVATED BP REPORTED TO .ORDER GIVEN TO GIVE 0900 DOSE OF HYDRALAZINE 50MG PO NOW.PT UPDATED.PT REFUSED FULL 50MG DOSE.STATES HE KNOWS HIS BODY AND HE WILL BOTTOM OUT HIS BLOOD PRESSURE IF HE TAKES THE FULL DOSE. UPDATED AND PT GIVEN ONLY 25MG PO. E.WILL CONT TO MONITOR AND UPDATE NEXT SHIFT.
[2021-01-03] MEDS: hydrALAZINE HCl 50 MG TABLET PO ×3 (05:06→20:17)
[2021-01-03 06:11] LABS: Mean Corpuscular Hemoglobin 27.6 pg (27.0-33.0); PLT ABN DIST 1
[2021-01-03 06:13] LABS: Hematocrit 27.9 % (42-52); Mean Corpuscular HGB Conc 32.3 g/dl (31.0-36.0); Mean Corpuscular Volume 85.6 fL (80-98); Mean Platelet Volume 13.2 fL (9.4-12.4); Platelet Count 102 X10*3/uL (160-400); Red Blood Count 3.26 X10*6/uL (4.60-5.80); White Blood Count 10.1 X10*3/uL (4.8-10.8)
[2021-01-03 06:19] LABS: D Dimer 506 NG/ML
[2021-01-03 06:43] LABS: Anion Gap 12 (12-20); Blood Urea Nitrogen 38 mg/dL (9-16); C Reactive Protein 1.11 mg/dL (< or = 0.50); Calcium 7.8 mg/dL (8.4-10.2); Carbon Dioxide 18 mmol/L (22-29); Chloride 108 mmol/L (96-108); Creatinine Clr Calc Pharmacy 51.3; Estimated Glomerular Filt Rate 26; Glucose Random 262 mg/dL (60-115); Potassium 4.7 mmol/L (3.3-5.1); Sodium 133 mmol/L (135-145)
[2021-01-03 06:49] LABS: Glucose, Whole Blood 403 mg/dL (60-115)
[2021-01-03 07:55] LABS: Glucose, Whole Blood 252 mg/dL (60-115)
[2021-01-03] MEDS: Insulin Lispro 100 UNIT/ML 3 ML VIAL SUBCUT ×3 (08:18→18:09)
[2021-01-03] MEDS: Insulin Glargine,Hum.rec.anlog 100 UNIT/ML 10 ML VIAL 40 UNIT SUBCUT ×2 (08:19→22:14)
[2021-01-03] MEDS: predniSONE 20 MG TABLET 40 MG PO (08:19)
[2021-01-03] MEDS: Metoprolol Succinate ER 50 MG TAB.ER.24H 200 MG PO (08:20)
[2021-01-03] MEDS: polyethylene glycoL 3350 17 GM POWD.PACK PO (08:21)
[2021-01-03] MEDS: Docusate Sodium 100 MG CAPSULE PO ×2 (08:21→20:17)
[2021-01-03 10:02] LABS: Hepatitis B Core Antibody IgM NON-REACTIVE (NON-REACTIVE)
[2021-01-03 11:30] LABS: Glucose, Whole Blood 292 mg/dL (60-115)
--- NOTE | 2021-01-03 12:09 | MHC.CM.PN ---
Male 45 DX CovidAB masses Patient is discharged to home today. He has arranged for transportation to home. He will Follow up with PCP Dr Tisha Blackman.
--- NOTE | 2021-01-03 15:25 | HO.PM.IMPN ---
Subjective Subjective Date of Service: 01/03/21 Interval History: c/o worsening dyspnea + wheeze no further BRBPR Physical Exam Vital Signs: Vital Signs: Last Vital Signs Temp 99.5 F 01/03/21 15:10 Pulse 92 01/03/21 15:22 Resp 18 01/03/21 15:10 BP 200/88 H 01/03/21 15:22 Pulse Ox 95 01/03/21 15:10 Body Mass Index 37.5 Gen: dyspneic HEENT: sclera anicteric, moist mucus membranes Neck: supple Lungs: dyspnea, diffuse expiratory wheezing Heart: regular rate and rhythm, no murmurs Abd: morbidly obese, soft, tender LLQ + RLQ without rebound or guarding Ext: bilateral BKA Skin: warm/well-perfused Neuro: alert and oriented x3, no focal findings Psych: appropriate affect Objective Data Current Medications Generic Name Dose Route Start Last Admin Trade Name Freq PRN Reason Stop Dose Admin Acetaminophen 650 mg 01/01/21 18:14 Acetaminophen 325 Mg Tablet PO Q6H PRN Pain, Mild (Pain Scale 1-3) Albuterol Sulfate 4 puff 01/01/21 18:25 01/02/21 13:38 Albuterol Sulfate 90 Mcg 8 Gm Inhaler INHALE 4 puff Q4H PRN Administration shortness of breath or wheeze Docusate Sodium 100 mg 01/02/21 14:00 01/03/21 08:21 Docusate Sodium 100 Mg Capsule PO 100 mg BID DELMA Administration Hydralazine HCl 50 mg 01/02/21 21:00 01/03/21 15:22 Hydralazine Hcl 50 Mg Tablet PO 50 mg TID [facility] Administration Protocol Hydromorphone HCl 4 mg 01/01/21 17:51 Hydromorphone Hcl 4 Mg Tablet PO BEDTIME PRN pain Insulin Glargine 40 unit 01/03/21 09:00 01/03/21 08:19 Insulin Glargine,Hum.Rec.Anlog 100 Unit/Ml 10 Ml Vial SUBCUT 40 unit DAILY [facility] Administration Insulin Human Lispro 0 unit 01/01/21 21:00 01/03/21 12:36 Insulin Lispro 100 Unit/Ml 3 Ml Vial SUBCUT 6 unit QIDACHS [facility] Administration Protocol Metoprolol Succinate 200 mg 01/03/21 09:00 01/03/21 08:20 Metoprolol Succinate Er 50 Mg Tab.Er.24h PO 100 mg DAILY DELMA Administration Protocol Ondansetron HCl 4 mg 01/01/21 18:14 Ondansetron Hcl 4 Mg/2 Ml Vial IVPUSH Q8H PRN Nausea and Vomiting Oxycodone HCl 40 mg 01/01/21 17:51 01/03/21 15:22 Oxycodone Hcl Immed Release 5 Mg Tablet PO 40 mg Q4H PRN Administration Pain Polyethylene Glycol 17 gm 01/02/21 14:00 01/03/21 08:21 Polyethylene Glycol 3350 17 Gm Powd.Pack PO 17 gm DAILY DELMA Administration Prednisone 40 mg 01/01/21 18:25 01/03/21 08:19 Prednisone 20 Mg Tablet PO 40 mg DAILY DELMA Administration Sodium Chloride 3 ml 01/02/21 00:00 01/03/21 08:21 0.9 % Sodium Chloride Flush 3 Ml Syringe IVFLUSH 3 ml QSHIFT DELMA Administration Labs CBC & Chem 7: 01/03/21 05:36 01/03/21 05:36 Labs: Laboratory Results - last 24 hr 01/02/21 01/02/21 01/02/21 05:34 16:00 16:01 WBC RBC Hgb Hct MCV MCH MCHC RDW Plt Count MPV Absolute Nucleated RBC Nucleated RBC % (auto) D-Dimer Sodium Potassium Chloride Carbon Dioxide Anion Gap BUN Creatinine Estim Creat Clear Calc Estimated GFR POC Glucose 417 H* 403 H* Random Glucose Calcium C-Reactive Protein Hep B Core IgM Ab NON-REACTIVE 01/02/21 01/02/21 01/03/21 20:29 22:16 05:36 WBC 10.1 RBC 3.26 L Hgb 9.0 L Hct 27.9 L MCV 85.6 MCH 27.6 MCHC 32.3 RDW 14.0 Plt Count 102 L MPV 13.2 H Absolute Nucleated RBC 0.000 Nucleated RBC % (auto) 0.0 D-Dimer Sodium Potassium Chloride Carbon Dioxide Anion Gap BUN Creatinine Estim Creat Clear Calc Estimated GFR POC Glucose 216 H 155 H Random Glucose Calcium C-Reactive Protein Hep B Core IgM Ab 01/03/21 01/03/21 01/03/21 05:36 05:36 07:41 WBC RBC Hgb Hct MCV MCH MCHC RDW Plt Count MPV Absolute Nucleated RBC Nucleated RBC % (auto) D-Dimer 506 Sodium 133 L Potassium 4.7 Chloride 108 Carbon Dioxide 18 L Anion Gap 12 BUN 38 H Creatinine 2.63 H Estim Creat Clear Calc 51.3 Estimated GFR 26 POC Glucose 252 H Random Glucose 262 H D Calcium 7.8 L C-Reactive Protein 1.11 H Hep B Core IgM Ab 01/03/21 11:17 WBC RBC Hgb Hct MCV MCH MCHC RDW Plt Count MPV Absolute Nucleated RBC Nucleated RBC % (auto) D-Dimer Sodium Potassium Chloride Carbon Dioxide Anion Gap BUN Creatinine Estim Creat Clear Calc Estimated GFR POC Glucose 292 H Random Glucose Calcium C-Reactive Protein Hep B Core IgM Ab Quality Stroke Does the patient have a stroke diagnosis?: No VTE Prior VTE?: No VTE Risk Level:: Medical - moderate - high VTE Device Contraindication: N/A - Device Ordered VTE Drug Contraindication: N/A - Med Ordered Assessment and Plan (1) COVID-19: Status: Acute (2) GI bleed: Status: Acute Assessment and Plan: hospital d#3 45yo M c DM2, HTN, chronic pain syndrome, CKD3, bilateral BKA, CVA on DAPT with no residual deficit, HCV cirrhosis, and asthma presenting with 2 days of cough, chest congestion, and wheezing and 2 1/2 weeks of lower abdominal pain and rectal bleeding positive for COVID-[address] findings concerning for colonic masses # acute blood loss anemia # lower GI bleed/BRBPR # possible colon masses - H+H stable. DAPT held. GI consulted, will arrange outpt colonoscopy when COVID-19 resolves in approx 2 weeks # COVID-19 pneumonia - on isolation; not hypoxic but giving steroids for asthma exacerbation; inflammatory markers reassuring and pt got the Abhay + Abhay COVID-19 vaccine back in October # asthma exacerbation - change to IV methylprednisolone 40mg q12h, prn albuterol HFA # troponin elevation - flat at 3-hr recheck; no chest pain; EKG with old inferolateral T wave inversions; suspect due to CKD, not ACS # CKD3 - SCr around his baseline; avoid nephrotoxins # HTN - continue hydralazine, metoprolol # prior CVA - no residual deficit; held DAPT due to GIB. # DM2, A1c 11.6 - increase basal/bolus insulin. pt is extremely insulin resistant. # HCV cirrhosis - HCV viral load pending; HIV negative; isolated anti-HBc - monitor for signs of decompensation; not currently coagulopathic or encephalopathic # chronic pain syndrome - continue hydromorphone + oxycodone; no aberrant activity per MassPAT review # VTE ppx - no UFH due to GIB. unable to place SCDs due to bilateral BKAs # dispo - anticipate home when respiratory status improves
[2021-01-03 15:57] LABS: Glucose, Whole Blood 401 mg/dL (60-115)
[2021-01-03 16:46] LABS: Glucose, Whole Blood 416 mg/dL (60-115)
[2021-01-03] MEDS: methylPREDNISolone Sod Succ 40 MG/ML VIAL IVPUSH (18:09)
[2021-01-03 19:47] LABS: HCV Log PCR 5.55 Log IU/mL (NOT DETECTED); HepC Viral Load 358000 IU/mL (NOT DETECTED)
[2021-01-03 20:22] LABS: Glucose, Whole Blood 412 mg/dL (60-115)
[2021-01-03] MEDS: Insulin Lispro 100 UNIT/ML 3 ML VIAL 50 UNIT SUBCUT (20:23)
[2021-01-03 21:37] LABS: Glucose, Whole Blood 307 mg/dL (60-115)
[2021-01-04] MEDS: oxyCODONE HCl Immed Release 5 MG TABLET 40 MG PO ×3 (00:46→13:11)
[2021-01-04] MEDS: 0.9 % Sodium Chloride Flush 3 ML SYRINGE IVFLUSH ×2 (00:47→07:40)
[2021-01-04 03:21] VITALS: BP 137/68; PULSE 81; RESP 18; TEMP 36.6; O2SAT 95
[2021-01-04 03:48] LABS: Glucose, Whole Blood 288 mg/dL (60-115)
[2021-01-04] MEDS: methylPREDNISolone Sod Succ 40 MG/ML VIAL IVPUSH (05:45)
[2021-01-04 05:57] LABS: Hemoglobin 8.8 g/dl (14.0-18.0); Mean Corpuscular Hemoglobin 27.4 pg (27.0-33.0); Mean Platelet Volume 13.4 fL (9.4-12.4); PLT ABN DIST 1; Red Blood Count 3.21 X10*6/uL (4.60-5.80)
[2021-01-04 05:59] LABS: Hematocrit 27.6 % (42-52); Mean Corpuscular HGB Conc 31.9 g/dl (31.0-36.0); Platelet Count 98 X10*3/uL (160-400); White Blood Count 9.7 X10*3/uL (4.8-10.8)
[2021-01-04 06:00] VITALS: BMI 37.4
[2021-01-04 06:25] LABS: Anion Gap 13 (12-20); Blood Urea Nitrogen 53 mg/dL (9-16); Calcium 7.8 mg/dL (8.4-10.2); Carbon Dioxide 16 mmol/L (22-29); Chloride 107 mmol/L (96-108); Creatinine Clr Calc Pharmacy 43.7; Estimated Glomerular Filt Rate 22; Glucose Random 283 mg/dL (60-115); Potassium 4.6 mmol/L (3.3-5.1); Sodium 131 mmol/L (135-145)
[2021-01-04 07:11] LABS: Glucose, Whole Blood 239 mg/dL (60-115)
[2021-01-04 07:15] VITALS: BP 184/87; PULSE 85; RESP 18; TEMP 36.4; O2SAT 97
[2021-01-04] MEDS: Insulin Glargine,Hum.rec.anlog 100 UNIT/ML 10 ML VIAL 40 UNIT SUBCUT (07:38)
[2021-01-04 07:39] VITALS: BP 184/87; PULSE 85
[2021-01-04] MEDS: hydrALAZINE HCl 50 MG TABLET PO (07:39)
[2021-01-04] MEDS: Docusate Sodium 100 MG CAPSULE PO (07:39)
[2021-01-04 09:10] VITALS: BP 193/85; PULSE 89
[2021-01-04] MEDS: Metoprolol Succinate ER 50 MG TAB.ER.24H 200 MG PO (09:10)
[2021-01-04 11:04] VITALS: BP 179/95; PULSE 88; RESP 18; TEMP 36.6; O2SAT 95
[2021-01-04 11:43] LABS: Glucose, Whole Blood 320 mg/dL (60-115)
[2021-01-04] MEDS: Insulin Lispro 100 UNIT/ML 3 ML VIAL 40 UNIT SUBCUT (12:19)
[2021-01-04] MEDS: Insulin Lispro 100 UNIT/ML 3 ML VIAL SUBCUT (12:20)
--- NOTE | 2021-01-04 12:53 | MHC.CM.PN ---
Male 45 DX Covid, colonic masses The patient is discharged today to home with resumption of Nathaniel. Patient has arranged for private transport.
--- NOTE | 2021-01-04 13:38 | PM.DS ---
DS: Providers Provider Date of Service: 01/04/21 Date of admission: 01/01/21 18:14 Date of discharge: 01/04/21 Primary care physician: Gilma Blackman MD, [place], [place] Consults: 01/01/21 17:49 Consult to Gastroenterology Routine Consulting Provider[place] [facility] Reason for consultation: BRBPR, cirrhosis; ileocecal + transverse colon masses on CT 01/01/21 18:16 Consult to Infectious Diseases Routine Consulting Provider: Shelley Real Reason for consultation: COVID_19 DS: Diagnosis Discharge Diagnosis (1) COVID-19: Status: Acute (2) GI bleed: Status: Acute (3) Colonic mass: Status: Acute (4) Asthma exacerbation: Status: Acute (5) Cirrhosis: Status: Acute (6) Hepatitis C, chronic: Status: Acute (7) Chronic kidney disease (CKD), stage III (moderate): Status: Acute DS: Medications Discharge Medications Home Medications: Home Medications Medication Instructions Recorded Confirmed oxycodone 40 mg PO Q4H PRN 06/08/20 01/01/21 aspirin 1 tab PO DAILY 01/01/21 01/01/21 clopidogrel 1 tab PO DAILY 01/01/21 01/01/21 hydralazine 25 mg PO TID 01/01/21 01/01/21 hydromorphone 1 tab PO BEDTIME PRN 01/01/21 01/01/21 metoprolol succinate 100 mg PO DAILY 01/01/21 01/01/21 Humalog KwikPen Insulin 60 units SUBCUT TID 01/02/21 01/02/21 Previous Rx's Medication Instructions Recorded ondansetron 4 mg PO Q6-8H PRN #14 tab 11/28/20 prednisone 40 mg PO DAILY #6 tab 01/04/21 DS: Summary Hospital Course Hospital Course: from my admission history and physical, 01/01/21: Chief Complaint: cough; rectal bleeding + abdominal pain 45yo M with DM2, HTN, chronic pain syndrome, CKD3, bilateral BKA, CVA on DAPT with no residual deficit, HCV cirrhosis, and asthma who recently returned from a trip to [place] and comes to the ED with 2 days of cough, chest congestion, and wheezing. Multiple family members have similar symptoms and are being tested for COVID-19. He did receive the single-dose Abhay and Abhay COVID-19 vaccine on 10/26/20. Additionally, he has been reporting bilateral lower abdominal pain and small amounts of bright red blood per rectum for the past 2 1/2 weeks. In the ED, he tested positive for COVID-19 by [facility]. Hemoglobin was noted to be 9.8 compared to a baseline of around 11-12. CT of the abdomen and pelvis without contrast showed a 4.5 cm segment of distal transverse colon with circumferential wall thickening and luminal narrowing that could represent either spasm or colonic mass; there was also a masslike density near the ileocecal valve. Also demonstrated were splenomegaly and small upper abdominal varices but no ascites. The lung bases showed ground-glass opacities. 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 MCA territory CVA (09/04) with no residul deficits HCV cirrhosis HTN obesity chronic phantom limb pain syndrome PSHx: bilateral BKA FHx: grandfather had colon CA in his 60s; father had DM2 SHx: denies smoking or drug use; history of prior heroin abuse lives with spouse has BKA prostheses on disability The patient was admitted to the [facility] [place] on isolation precautions. He was never hypoxic from the COVID-19 pneumonia, but was treated with a burst of steroids due to asthma exacerbation with wheezing and dyspnea. Inflammatory markers were reassuring, and he had been previously vaccinated against COVID-19, which likely protected him from severe infection. His respiratory status improved; wheezing resolved. As for blood loss anemia and hematochezia suspicious for lower GI bleed from possible colon masses, his hemoglobin stabilized and he did not have any recurrent bleeding. Dual antiplatelet therapy was held. Gastroenterology was consulted and colonoscopy will done as an outpatient once the patient is out of the isolation window for COVID-19. He will also need outpatient gastroenterology for care of his cirrhosis and curative treatment of chronic hepatitis C. Blood pressure was not optimally controlled, but he refused increased doses of hydralazine or metoprolol. Likewise, his diabetes is poorly controlled as evidenced by A1c of 11.6, but he refused increased doses of Humalog. He was discharged home and declined VNA services. He was instructed to follow up with his primary care doctor in 1 week and repeat labs [CBCd, BMP] in 1 week; gastroenterology in 2 weeks. He should also hold DAPT until he undergoes colonoscopy. Time Spent with Patient Time attestation: Total time spent providing and/or coordinating discharge services: 40 Discharge coordination time: Greater than 30 minutes Quality: Stroke Does the patient have a stroke diagnosis?: No Physical Exam Vital Signs: Vital Signs: Last Vital Signs Temp 97.8 F 01/04/21 11:04 Pulse 88 01/04/21 11:04 Resp 18 01/04/21 11:04 BP 179/95 H 01/04/21 11:04 Pulse Ox 95 01/04/21 11:04 Body Mass Index 37.4 Gen: NAD HEENT: sclera anicteric, moist mucus membranes Neck: supple Lungs: clear bilaterally Heart: regular rate and rhythm, no murmurs Abd: morbidly obese, soft, non-tender Ext: bilateral BKA Skin: warm/well-perfused Neuro: alert and oriented x3, no focal findings Psych: appropriate affect DS: Data Data Completed and Pending Completed studies during hospitalization [Text1]: Laboratory Results WBC 9.7 X10*3/uL (4.8-10.8) 01/04/21 05:25 RBC 3.21 X10*6/uL (4.60-5.80) L 01/04/21 05:25 Hgb 8.8 g/dl (14.0-18.0) L 01/04/21 05:25 Hct 27.6 % (42-52) L 01/04/21 05:25 MCV 86.0 fL (80-98) 01/04/21 05:25 MCH 27.4 pg (27.0-33.0) 01/04/21 05:25 MCHC 31.9 g/dl (31.0-36.0) 01/04/21 05:25 RDW 14.0 % (11.0-16.0) 01/04/21 05:25 Plt Count 98 X10*3/uL (160-400) L 01/04/21 05:25 MPV 13.4 fL (9.4-12.4) H 01/04/21 05:25 Immature Gran % (Auto) 0.1 % (0.0-0.4) 01/01/21 15:24 Neut % (Auto) 74.0 % (45-73) H 01/01/21 15:24 Lymph % (Auto) 15.3 % (20-40) L 01/01/21 15:24 [place] % (Auto) 10.4 % (2-11) 01/01/21 15:24 Eos % (Auto) 0.1 % (0-4) 01/01/21 15:24 Baso % (Auto) 0.1 % (0-2) 01/01/21 15:24 Lymph # (Auto) 1.2 X10*3/uL (1.2-4.9) 01/01/21 15:24 [place] # (Auto) 0.8 X10*3/uL (0.1-1.2) 01/01/21 15:24 Eos # (Auto) 0.0 X10*3/uL (0.0-0.4) 01/01/21 15:24 Baso # (Auto) 0.0 X10*3/uL (0.0-0.2) 01/01/21 15:24 Abs Immat Gran (auto) 0.01 X10*3/uL (0.00-0.03) 01/01/21 15:24 Absolute Neuts (auto) 5.9 X10*3/uL (2.0-8.3) 01/01/21 15:24 Absolute Nucleated RBC 0.000 X10*3/uL (0.0-0.012) 01/04/21 05:25 Nucleated RBC % (auto) 0.0 /100WBC (0.0-0.2) 01/04/21 05:25 PT 11.9 SEC (10.8-13.0) 01/01/21 15:24 INR 1.0 (0.9-1.1) 01/01/21 15:24 APTT 36.5 SEC (24.1-38.0) 01/01/21 15:24 D-Dimer 506 NG/ML 01/03/21 05:36 Sodium 131 mmol/L (135-145) L 01/04/21 05:25 Potassium 4.6 mmol/L (3.3-5.1) 01/04/21 05:25 Chloride 107 mmol/L (96-108) 01/04/21 05:25 Carbon Dioxide 16 mmol/L (22-29) L 01/04/21 05:25 Anion Gap 13 (12-20) 01/04/21 05:25 BUN 53 mg/dL (9-16) H 01/04/21 05:25 Creatinine 3.09 mg/dL (0.5-1.4) H 01/04/21 05:25 Estim Creat Clear Calc 43.7 01/04/21 05:25 Estimated GFR 22 01/04/21 05:25 POC Glucose 320 mg/dL (60-115) H 01/04/21 11:02 Random Glucose 283 mg/dL (60-115) H 01/04/21 05:25 Estimat Average Glucose 286 mg/dL 01/02/21 05:35 Hemoglobin A1c % 11.6 % 01/02/21 05:35 Calcium 7.8 mg/dL (8.4-10.2) L 01/04/21 05:25 Magnesium 1.6 mg/dL (1.6-2.6) 01/01/21 15:24 Total Bilirubin < 0.2 mg/dL (0.0-1.0) 01/02/21 05:35 Direct Bilirubin < 0.2 mg/dL (0.0-0.5) 01/01/21 15:24 AST 30 U/L (5-37) 01/02/21 05:35 ALT 27 U/L (0-40) 01/02/21 05:35 Alkaline Phosphatase 225 U/L (39-117) H 01/02/21 05:35 Lactate Dehydrogenase 219 U/L (118-273) 01/01/21 15:24 Total Creatine Kinase 71 U/L (38-174) 01/01/21 15:24 Troponin I High Sens 36.4 ng/L (<3.5-35.0) H* 01/01/21 18:53 C-Reactive Protein 1.11 mg/dL (< or = 0.50) H 01/03/21 05:36 Total Protein 5.8 g/dL (6.5-8.0) L 01/02/21 05:35 Albumin 2.1 g/dL (3.5-5.0) L 01/02/21 05:35 Lipase 34 U/L (8-78) 01/01/21 15:24 Procalcitonin 0.16 ng/mL 01/01/21 15:24 Urine Color STRAW 01/01/21 21:33 Urine Appearance CLEAR 01/01/21 21:33 Urine pH 6.0 (5.0-8.0) 01/01/21 21:33 Ur Specific [place] 1.015 (1.005-1.025) 01/01/21 21:33 Urine Protein 2+ MG/DL (NEG-TRACE) H 01/01/21 21:33 Urine Glucose (UA) >=1000 MG/DL (NEG) H 01/01/21 21:33 Urine Ketones NEG MG/DL (NEG) 01/01/21 21:33 Urine Blood 2+ (NEG) H 01/01/21 21:33 Urine Nitrite NEG (NEG) 01/01/21 21:33 Ur Leukocyte Esterase NEG (NEG) 01/01/21 21:33 Urine RBC 15-29 /HPF (0) H 01/01/21 21:33 Urine WBC 5-9 /HPF (0-4) H 01/01/21 21:33 Ur Squamous Epith Cells TRACE /LPF 01/01/21 21:33 Urine Bacteria 1+ /LPF 01/01/21 21:33 Stool Occult Blood POSITIVE (NEGATIVE) 01/01/21 15:39 Coronavirus (PCR) POSITIVE (Negative) A 01/01/21 15:24 Hep Bs Antigen Negative (Negative) 01/02/21 05:34 Hep Bs Antibody NONREACTIVE (Nonreactive) 01/02/21 05:34 Hep B Core Total Ab Reactive (Nonreactive) 01/02/21 05:34 Hep B Core IgM Ab NON-REACTIVE (NON-REACTIVE) 01/02/21 05:34 Hep C Viral Load [id number] IU/mL (NOT DETECTED) H 01/02/21 05:34 Hep C Viral Load Log 5.55 Log IU/mL (NOT DETECTED) H 01/02/21 05:34 HIV 1&2 Ab/P24 Ag 4thGn Nonreactive (Nonreactive) 01/02/21 05:34 Influenza Type A (PCR) NEGATIVE (Negative) 01/01/21 15:24 Influenza Type B (PCR) NEGATIVE (Negative) 01/01/21 15:24 RSV RNA Qual (PCR) NEGATIVE (Negative) 01/01/21 15:24 Blood Type A Positive 01/01/21 19:18 Antibody Screen NEGATIVE 01/01/21 19:18 Impressions Chest X-Ray 01/01/21 13:46 IMPRESSION: No evidence of acute disease. Abdomen/Pelvis CT 01/01/21 14:56 IMPRESSION: 1. Limited evaluation of the colon due to unprepped and noncontrast enhanced nature of the exam. As discussed above, there are 2 equivocal findings in the colon, one at the ileocecal valve region and one in the distal transverse colon, which will require further assessment in the setting of GI bleeding to exclude underlying malignancy. 2. No other acute intra-abdominal or pelvic findings. There are, however, several 2 to 5 mm bilateral pulmonary nodules and patchy groundglass opacities with airway thickening seen in the included lung bases, raising the suspicion of respiratory bronchiolitis or other infectious/inflammatory process. A neoplastic etiology is felt to be less likely, but cannot be excluded. Close clinical correlation and follow-up is recommended. 3. Liver cirrhosis with portal venous hypertension as evidenced by splenomegaly and small upper abdominal varices. No significant ascites is seen. Enlarged periportal lymph nodes are seen, likely reactive. 4. Other incidental findings include fatty atrophy of the pancreas, a chronically hydropic gallbladder, stable right renal cyst, and chronic mild superior endplate compression deformity of L1 and L2. Discharge Plan Discharge Anticipated Discharge Date/Time: 01/04/21 12:45 Patient Disposition: Home, Self-Care Discharge Diagnosis: Anemia from GI bleed, possible colon masses, COVID-19 without hypoxia, asthma exacerbation, chronic hepatitis C Referrals: Gilma Blackman [Other] - 1 Week Meena Willingham MD [Physician] - 2 Weeks (for colonoscopy, consulted in the hospital) Discharge Medications: New prednisone 20 mg tablet 40 mg PO DAILY Qty: 6 RF: 0 albuterol sulfate [Ventolin HFA] 90 mcg/actuation Hfa Aerosol Inhaler 2 puff inhalation Q4H PRN (Reason: shortness of breath or wheeze) Qty: 8.5 RF: 0 Continued ondansetron 4 mg tablet,disintegrating 4 mg PO Q6-8H PRN (Reason: nausea and vomiting) Qty: 14 RF: 0 metoprolol succinate 100 mg tablet extended release 24 hr 100 mg PO DAILY RF: 0 hydralazine 25 mg Tablet 25 mg PO TID RF: 0 hydromorphone 4 mg tablet 1 tab PO BEDTIME PRN (Reason: pain) RF: 0 Humalog KwikPen Insulin 200 UNITS/ML 60 units subcut TID RF: 0 oxycodone 20 mg Tablet 40 mg PO Q4H PRN (Reason: Pain) RF: 0 Held clopidogrel 75 mg tablet 1 tab PO DAILY RF: 0 Hold Instructions: Resume on 01/20/21. hold pending instructions from forestry faculty member aspirin 81 mg tablet,delayed release (DR/EC) 1 tab PO DAILY RF: 0 Hold Instructions: Resume on 01/20/21. hold pending instructions from forestry faculty member Discharge Orders: Discharge Order (Routine); Ordered 01/04/21 Ordered By: Armond Coelho Diet: diabetic diet Activity on Discharge: As tolerated Stand Alone Forms: Patient Portal Discharge page Other Ambulatory Orders: Basic Metabolic Panel (Routine) Timeframe: 1 Week Facility: [facility] - Location: Laboratory Ordered By: Armond Coelho Complete Blood Count Auto Diff (Routine) Timeframe: 1 Week Facility: [facility] - Location: Laboratory Ordered By: Armond Coelho Care Plan Goals: resolution of GI bleeding diagnosis of possible colon masses stable kidney function resolution of asthma exacerbation from COVID pneumonia avoidance of complications of cirrhosis clearance of hepatitis C Health Concerns: lower GI bleeding, possible colon masses, chronic kidney disease, asthma exacerbation, COVID-19 pneumonia, cirrhosis, chronic hepatitis C Plan of Treatment: follow up with Dr Meena Willingham, Gastroenterology, in 2 weeks, for colonoscopy. also discuss care of your liver cirrhosis and curative treatment of your hepatitis C. [address] [place] [address] [address] [place] [address] stop aspirin and clopidogrel until cleared by forestry faculty member check labs in 1 week: CBCd, BMP [non-fasting] take prednisone 40 mg daily for 3 more days; use albuterol inhaler for relief of wheezing and shortness of breath maintain isolation for 10 days from the onset of symptoms see your primary care doctor, Dr Gilma Joseph, in 1 week Assessment: see above Patient Instructions: Gastrointestinal Bleeding (DC)
== END 2021-01-04 14:26 | disposition home or self-care (01) | DRG 137 ==
LOC: HO.ED 16:54 → HO.EDOVER 18:33 → HO.IMC 20:25
PROVIDERS: Physician Assistant; Admitting Provider Family Medicine; Emergency Provider Emergency Medicine; PCP Internal Medicine; Visit Provider Family Medicine
DX: U07.1 COVID-19 (principal); J12.82 Pneumonia due to coronavirus disease 2019; E11.22 Type 2 diabetes mellitus with diabetic chronic kidney disease; J45.901 Unspecified asthma with (acute) exacerbation; D62 Acute posthemorrhagic anemia; E11.65 Type 2 diabetes mellitus with hyperglycemia; N18.30 Chronic kidney disease, stage 3 unspecified; Z89.512 Acquired absence of left leg below knee; Z89.511 Acquired absence of right leg below knee; I12.9 Hypertensive chronic kidney disease with stage 1 through stage 4 chronic kidney disease, or unspecified chronic kidney disease; G89.29 Other chronic pain; K74.60 Unspecified cirrhosis of liver; B18.2 Chronic viral hepatitis C; K58.9 Irritable bowel syndrome, unspecified; K63.89 Other specified diseases of intestine; Z86.73 Personal history of transient ischemic attack (TIA), and cerebral infarction without residual deficits; Z79.01 Long term (current) use of anticoagulants; Z88.0 Allergy status to penicillin; Z88.2 Allergy status to sulfonamides; Z79.4 Long term (current) use of insulin; Z79.891 Long term (current) use of opiate analgesic; Z79.899 Other long term (current) drug therapy
CPT/HCPCS: 0241U; 36415; 71045; 74176; 80048; 80053; 80076; 81001; 82272; 82550; 82947; 83036; 83615; 83690; 83735; 84145; 84484; 85025; 85027; 85379; 85610; 85730; 86140; 86704; 86705; 86706; 86850; 86900; 86901; 87086; 87147; 87340; 87389; 87522; 93005; 99285; J0456; J2920

== ENCOUNTER 2021-01-07 04:59 | Inpatient (IN) | payer OTHER, SELFPAY ==
[2021-01-07] VITALS (26 sets, daily range): BP systolic 119–189; BP diastolic 58–98; PULSE 92–127; RESP 18–44; TEMP 37; O2SAT 84–97; BMI 37.2
--- NOTE | 2021-01-07 | ECG_ITS ---
Test Reason : arrythmia Blood Pressure : / mmHG Vent. Rate : 104 BPM Atrial Rate : 104 BPM P-R Int : 136 ms QRS Dur : 076 ms QT Int : 336 ms P-R-T Axes : 041 018 174 degrees QTc Int : 441 ms Sinus tachycardia Moderate voltage criteria for LVH, may be normal variant Marked ST abnormality, possible lateral subendocardial injury Abnormal ECG When compared with ECG of 07-JAN-2021 05:42, T wave inversion more evident in Anterolateral leads Referred By: Jhon Pitts Electronically Signed By:Samson Stephens
--- NOTE | ~2021-01-07 | XR_ITS ---
EXAMINATION: XR CHEST CLINICAL INFORMATION: Acute hypoxia. COMPARISON: Chest radiograph done on 12/09/2020 at 12:43 PM. TECHNIQUE: Frontal view of the chest was obtained. FINDINGS: Bilateral low lung volume and diffuse groundglass airspace disease is present, similar to prior study. Previously documented right-sided chest tube is unchanged in position. Right IJ central line is unchanged. The tip of the endotracheal tube is located approximately 5.6 cm above the level of the elijah, unchanged. The tip of the enteric tube is below the level of the diaphragm and is unchanged. Overall, no significant change. XR/XR chest 1V IMPRESSION: Stable radiographic appearance of the chest, unchanged since prior chest radiograph done earlier today at 12:43 PM. Specifically, the position of the tubes and catheters appear unchanged.
--- NOTE | ~2021-01-07 | XR_ITS ---
EXAMINATION: XR CHEST CLINICAL INFORMATION: Follow-up code pneumonia. COMPARISON: Chest 01/08/2021 TECHNIQUE: Frontal view of the chest was obtained. FINDINGS: There is right apical pneumothorax and left pericardiac pneumomediastinum with tracking in the neck. There is a right jugular central catheter with its tip in the trachea. The enteric tube is below the diaphragm the stomach. The lungs are hypoexpanded and bilateral infiltrates in the right upper midlung and left lower lobe. Heart size appears enlarged. No gross bony abnormality seen. XR/XR chest 1V IMPRESSION: There is new right apical pneumothorax and pneumomediastinum. Support lines and catheters are stable compared to 01/08/2021. There are bilateral infiltrates, stable.
--- NOTE | ~2021-01-07 | XR_ITS ---
EXAMINATION: XR CHEST CLINICAL INFORMATION: ET tube placement. COMPARISON: Chest radiograph done on 01/16/2021 at 6:21 AM. TECHNIQUE: Frontal view of the chest was obtained. FINDINGS: The tip of the endotracheal tube is located approximately 5.7 cm above the level of the elijah. The right IJ central line tip is projecting at the cavoatrial junction. Low lung volume is noted bilaterally. The cardiac mediastinal silhouette is unchanged. Right-sided pigtail catheter is projecting within the mid part of the right hemithorax overlying the region of the right hilum. XR/XR chest 1V IMPRESSION: The tip of the endotracheal tube is located approximate 5.7 cm above the level of the elijah.
--- NOTE | ~2021-01-07 | XR_ITS ---
EXAMINATION: XR CHEST CLINICAL INFORMATION: Follow-up pneumothorax and Covid. COMPARISON: 01/15/2021 TECHNIQUE: Frontal view of the chest was obtained. FINDINGS: Endotracheal tube terminates 3.5 cm above the elijah. Enteric tube in place. Right internal jugular central venous catheter extends to the region of the cavoatrial junction. Right-sided chest tube in place. Lung volumes are low. Patchy bilateral airspace opacities are similar to prior. No significant pleural effusion. No right-sided pneumothorax noted. Cardiomediastinal silhouette is unchanged. XR/XR chest 1V IMPRESSION: Endotracheal tube terminates 3.5 cm above the elijah. Low lung volumes. Patchy bilateral airspace opacities are similar. No definite pneumothorax seen with right-sided chest tube in place.
--- NOTE | ~2021-01-07 | XR_ITS ---
EXAMINATION: XR CHEST CLINICAL INFORMATION: Follow-up pneumothorax and Covid COMPARISON: Chest x-ray January 14, 2021 TECHNIQUE: Frontal view of the chest was obtained. FINDINGS: Endotracheal tube terminates approximately 5 cm above the level of elijah. Enteric tube terminates below the level of the diaphragm, beyond the parameters of today's x-ray. Right-sided jugular catheter is in expected position, terminating within the distal SVC. Pigtail catheter projecting over the right chest is again noted, slightly different configuration. Similar cardiac silhouette. Low lung volumes. No residual right-sided pneumothorax appreciated. Bilateral patchy airspace disease is unchanged. No large pleural effusion. XR/XR chest 1V IMPRESSION: -Stable support apparatus. -No residual right-sided pneumothorax appreciated.
--- NOTE | ~2021-01-07 | XR_ITS ---
EXAMINATION: XR CHEST CLINICAL INFORMATION: Interval placement of chest tube and repositioning of endotracheal tube COMPARISON: Earlier same day TECHNIQUE: Frontal portable view of the chest was obtained. FINDINGS: Multiple devices overlie the patient. There is some rotation toward the left. The endotracheal tube tip now projects approximately 4 cm above elijah. The enteric tube extends into the abdomen tip not well demonstrated. The right-sided vascular catheter tip projects at the expected junction of SVC with right atrium. Interval placement of a right-sided drainage catheter with the tip superimposing over the right hilar region. This presumably represents a right chest tube. No interval widening of the mediastinum. There are low lung volumes. There are extensive patchy areas of bilateral airspace disease. There is interval decrease in the previously demonstrated moderate right pneumothorax. A small pneumothorax likely persists. No convincing mediastinal shift. XR/XR chest 1V IMPRESSION: Interval improvement with a residual small right pneumothorax after chest tube placement. Low lung volumes with extensive bilateral airspace disease. The endotracheal tube tip now projects approximately 4 cm above elijah.
--- NOTE | ~2021-01-07 | CT_ITS ---
EXAMINATION: CT HEAD WITHOUT CONTRAST CLINICAL INFORMATION: Altered mental status. COMPARISON: Previous head CT, most recent August 2020. TECHNIQUE: Contiguous axial imaging was performed from the skull base to vertex without intravenous administration of contrast. This CT examination was performed using dose optimization techniques as appropriate, variously including the following: *Automated exposure control *Adjustment of mA and/or kV according to patient size (this includes techniques or standardized protocols for targeted exams where dose is matched to indication/reason for exam; i.e. extremities or head) *Use of iterative reconstruction technique DLP: 07/15/2004 mGy-cm. FINDINGS: There is no evidence of an extra-axial collection. There is no evidence of intra-axial or extra-axial hemorrhage. There are new low-attenuation areas in the periventricular white matter of the right frontal and right parietal lobes and subcortical white matter of the right parietal lobe. The ventricles and extra-axial CSF spaces are appropriate. No skull fracture is seen. There is soft tissue opacification of the bilateral mastoid air cells. The middle ears and paranasal sinuses are clear. CT/CT head/brain wo con IMPRESSION: New low-attenuation areas in the right periventricular frontal and parietal lobes and subcortical right parietal lobe suggestive of subacute infarcts. Embolic or watershed infarcts should be considered. Findings will be communicated by the [facility] Analyst Rosalina Novoa.
--- NOTE | ~2021-01-07 | XR_ITS ---
EXAMINATION: XR CHEST CLINICAL INFORMATION: Hypoxia. Question left pneumothorax. COMPARISON: 01/14/2021 TECHNIQUE: Frontal view of the chest was obtained. FINDINGS: Endotracheal tube terminates approximately 5 cm above the elijah. Enteric tube remains in place. Right internal jugular central venous catheter terminates over the right atrium. Cardiac leads overlie the chest. Right midlung pigtail catheter. Low lung volumes. Hazy opacities throughout both lungs, similar to prior. The previous small right-sided pneumothorax is not currently visualized. There is no definite left-sided pneumothorax seen. The cardiomediastinal silhouette is unchanged. XR/XR chest 1V IMPRESSION: Endotracheal tube terminates approximately 5 cm above the elijah. Low lung volumes with hazy bilateral airspace opacities, similar to prior. No residual right-sided pneumothorax seen. No definite left pneumothorax seen.
--- NOTE | ~2021-01-07 | XR_ITS ---
EXAMINATION: XR CHEST CLINICAL INFORMATION: Covid. Follow-up pneumothorax COMPARISON: Previous including earlier same day TECHNIQUE: Upright frontal portable view of the chest was obtained. FINDINGS: Multiple devices overlie the patient. The endotracheal tube tip projects at the sternal notch. I estimate this is approximately 6 cm above the elijah. The elijah is not well demonstrated. There is a right-sided vascular catheter with tip projecting in the expected region of the SVC. There is an enteric tube extending into the abdomen tip not included. The upper mediastinum is obscured. The patient is rotated to the left making assessment for mediastinal shift difficult. Some mediastinal shift towards the left may be present. The left hilum is obscured. Diffuse airspace densities throughout the left lung and right lung. The aeration of the right lung has worsened. There is a moderate right pneumothorax. This appears larger. Limited bone detail. XR/XR chest 1V IMPRESSION: There is an enlarging right pneumothorax. There is worsening aeration with extensive airspace disease in both lungs. The endotracheal tube tip is approximately 6 cm above the elijah. The endotracheal tube tip projects at the sternal notch. This critical result was discussed with Satish Perez MD at 7:39pm on 01/14/21 and it was ascertained that the content and urgency of the report was understood at the time of direct communication.
--- NOTE | ~2021-01-07 | CT_ITS ---
EXAMINATION: CT ABDOMEN AND PELVIS WITHOUT CONTRAST CLINICAL INFORMATION: Colonic mass, lactic acidosis COMPARISON: 01/01/2021 TECHNIQUE: Multidetector volumetric imaging was performed from the superior aspect of the liver through the pubic symphysis. Sagittal and coronal reformatted images were obtained on the technologist's workstation. This CT examination was performed using dose optimization techniques as appropriate, variously including the following: *Automated exposure control *Adjustment of mA and/or kV according to patient size (this includes techniques or standardized protocols for targeted exams where dose is matched to indication/reason for exam; i.e. extremities or head) *Use of iterative reconstruction technique DLP: 703 mGy-cm FINDINGS: LUNG BASES: Significant bibasilar opacities consistent with infiltrates. This is new from previous. LIVER, GALLBLADDER, AND BILIARY TREE: The liver is normal in size, shape, and attenuation. No focal hepatic lesion or biliary ductal dilatation is present. Gallbladder is mildly distended. Similar to previous PANCREAS: Unremarkable. SPLEEN: Unremarkable. ADRENAL GLANDS: Unremarkable. KIDNEYS AND URETERS: The kidneys are normal in size, shape, and attenuation. No hydronephrosis, hydroureter, or calculi seen. No perinephric stranding. BLADDER: Unremarkable. GASTROINTESTINAL TRACT: The small and large bowel are unremarkable. The appendix is unremarkable. ABDOMINAL WALL: No significant hernia is appreciated. LYMPH NODES: Some shotty periaortic nodes. Similar to previous. There are also some prominent nodes about the pancreas. Similar to previous. Etiology indeterminate. VASCULAR: Unremarkable. PELVIC VISCERA: Unremarkable. OSSEOUS STRUCTURES: Unremarkable. CT/CT abdomen pelvis wo con IMPRESSION: The most significant finding here is significant bilateral basilar infiltrates These are documented on chest x-ray same day. No acute finding in the abdomen pelvis. Once again some prominent peripancreatic lymph nodes are seen. Unchanged from most recent study. These may be reactive. Attention to follow-up.
--- NOTE | ~2021-01-07 | XR_ITS ---
EXAMINATION: XR CHEST CLINICAL INFORMATION: Follow-up pneumothorax COMPARISON: 01/13/2021 TECHNIQUE: Frontal view of the chest was obtained. FINDINGS: ET tube is 4.3 cm above the elijah. The tip of the right IJ catheter is well-positioned in region of junction of the SVC with right atrium. Diffuse haziness of the lungs, mildly improved on the right. Lungs remain hypoinflated. A small right apical pneumothorax has decreased in size. There is soft tissue emphysema of the right lateral chest wall. The pneumomediastinum has become less conspicuous (i.e., appears to have decreased). Otherwise, cardiomediastinal silhouette is unremarkable. The visualized bones are intact. XR/XR chest 1V IMPRESSION: * ET tube remains in satisfactory position at 4.3 cm above the elijah. * Interval decreased size of small right apical pneumothorax. Also, the pneumomediastinum appears to have decreased.
--- NOTE | ~2021-01-07 | XR_ITS ---
EXAMINATION: XR CHEST CLINICAL INFORMATION: Hypoxia COMPARISON: January 18, 2021 TECHNIQUE: AP portable view of the chest was obtained. FINDINGS: Endotracheal tube tip approximately 4.5 cm above the elijah. Right internal jugular central venous catheter seen with its tip at the cavoatrial junction. Enteric tube seen traversing to stomach. Right-sided chest tube in place. No pneumothorax is evident. There is diminished lung volumes present. There remains hazy density overlying both lungs with some increased interstitial markings without significant change. This may be related to pulmonary edema of cardiogenic or noncardiogenic etiology. No significant pleural effusion is appreciated. Heart normal size. XR/XR chest 1V IMPRESSION: No significant change in bilateral regions of interstitial prominence and groundglass opacity which may be related to pulmonary edema of cardiogenic or noncardiogenic etiology. Right chest tube in place without pneumothorax identified.
--- NOTE | ~2021-01-07 | XR_ITS ---
EXAMINATION: XR CHEST CLINICAL INFORMATION: Shortness of breath COMPARISON: 01/01/2021 TECHNIQUE: Frontal view of the chest was obtained. FINDINGS: Low lung volumes. Patchy multifocal airspace opacities are present throughout both lungs. No effusions. No pneumothorax. Cardiac and mediastinal contours are within normal limits. Assessment is slightly limited by motion artifact. No acute osseous findings. XR/XR chest 1V IMPRESSION: Patchy multifocal opacities in both lungs, most concerning for multifocal pneumonia. Pulmonary edema is on the differential, though less likely.
--- NOTE | ~2021-01-07 | XR_ITS ---
EXAMINATION: XR CHEST CLINICAL INFORMATION: Post intubation COMPARISON: Chest 01/07/2021 TECHNIQUE: Frontal view of the chest was obtained. FINDINGS: There is diffuse bilateral patchy infiltrates with a hypoexpanded lungs. New right jugular central catheter tip is in mid SVC. New endotracheal tube is 4.8 cm above the elijah. Enteric tube tip is below diaphragm in the stomach. Heart size is normal. No gross bony abnormality. XR/XR chest 1V IMPRESSION: Hypoexpanded lungs with diffuse patchy infiltrates are noted. New support lines and catheters are in satisfactory position.
--- NOTE | ~2021-01-07 | US_ITS ---
EXAMINATION: US EXTRACRANIAL CAROTID DUPLEX, BILATERAL CLINICAL INFORMATION: TIA COMPARISON: None TECHNIQUE: Real-time ultrasound and Doppler techniques (integrating B-mode 2-D vascular images, Doppler spectral analysis and color-flow Doppler imaging) were utilized to interrogate the extracranial carotid arteries, the vertebral arteries and proximal subclavian arteries bilaterally. The degree of stenosis is determined by criteria similar to NASCET. FINDINGS: Right Side: 1. There is mild atherosclerotic plaque seen in the bifurcation/proximal ICA region. 2. The common carotid artery PSV proximally is 58 cm/s and distally 66 cm/s. 3. The proximal internal carotid artery velocities are 55 cm/s systolic and 21 cm/s diastolic. 4. The proximal external carotid artery PSV is 168 cm/s. 5. The vertebral artery shows antegrade flow. 6. The subclavian artery waveforms are normal. Left Side: 1. There is moderate atherosclerotic plaque seen in the bifurcation/proximal ICA region. 2. The common carotid artery PSV proximally is 106 cm/s and distally 137 cm/s. 3. The proximal internal carotid artery velocities are 179 cm/s systolic and 71 cm/s diastolic. 4. The proximal external carotid artery PSV is 168 cm/s. 5. The vertebral artery shows antegrade flow. 6. The subclavian artery waveforms are normal. US/US carotid duplex BI IMPRESSION: 1. RIGHT: Minimal, non-hemodynamically significant stenosis of the proximal right internal carotid artery corresponding to a 0-49% stenosis by velocity criteria. 2. LEFT: Moderate, hemodynamically significant stenosis of the proximal left internal carotid artery corresponding to a 50-79% stenosis by velocity criteria.
--- NOTE | ~2021-01-07 | XR_ITS ---
EXAMINATION: XR CHEST CLINICAL INFORMATION: Hypoxia COMPARISON: 01/19/2021 TECHNIQUE: Frontal view of the chest was obtained. FINDINGS: Since yesterday's study, right-sided chest tube has been removed. ET tube remains in place 4 cm above the elijah. Right IJ line remains with its tip at the cavoatrial junction. An NG tube is present with its tip below the diaphragm. Compared to yesterday's study there has been some minimal improvement in appearances in the left lung but considerable patchy density remains bilaterally. Findings could represent edema or infiltrates. XR/XR chest 1V IMPRESSION: Continued presence of bilateral pulmonary opacities, possibly slightly improved on the left.
--- NOTE | ~2021-01-07 | XR_ITS ---
EXAMINATION: XR CHEST CLINICAL INFORMATION: Follow-up Covid in pneumothorax. COMPARISON: Chest x-ray January 13, 2021 TECHNIQUE: Frontal view of the chest was obtained. FINDINGS: Endotracheal tube terminates approximately 5 cm above the level of elijah. Enteric tube terminates below the level of the diaphragm. Right-sided jugular catheter is stable in position. Low lung volumes. No gross lobar consolidation. No large pleural effusion. Previously visualized tiny right apical pneumothorax appears to have resolved. Minimal subcutaneous emphysema along the right lateral chest wall has improved. XR/XR chest 1V IMPRESSION: 1. Stable support apparatus. 2. Previously visualized tiny right apical pneumothorax appears to have resolved.
--- NOTE | ~2021-01-07 | XR_ITS ---
EXAMINATION: XR CHEST CLINICAL INFORMATION: Covid COMPARISON: 01/20/2021 TECHNIQUE: Frontal view of the chest was obtained. FINDINGS: Endotracheal tube terminates 3.5 cm above the elijah. Enteric tube extends into the stomach. Right internal jugular central venous catheter terminates near the cavoatrial junction. Cardiac leads overlie the chest. Lung volumes are low. Hazy bilateral airspace opacities are again seen, partially improved on the left compared to prior. No pleural effusion or pneumothorax. The cardiomediastinal silhouette is within normal limits. XR/XR chest 1V IMPRESSION: Endotracheal tube terminating 3.5 cm above the elijah. Hazy bilateral airspace opacities again noted, partially improved on the left compared to prior.
--- NOTE | ~2021-01-07 | XR_ITS ---
EXAMINATION: XR CHEST CLINICAL INFORMATION: Pneumothorax COMPARISON: 01/16/2021 TECHNIQUE: Frontal view of the chest was obtained. FINDINGS: Endotracheal tube terminates 4.5 cm above the elijah. Enteric tube extends into the stomach. Right internal jugular central venous catheter terminates near the cavoatrial junction. Right basilar pigtail catheter. Lung volumes are low. Diffuse patchy opacities remain. Bronchial wall thickening present. No pleural effusion. No dense consolidation. No definite pneumothorax visualized. The cardiomediastinal silhouette is unchanged. XR/XR chest 1V IMPRESSION: Endotracheal tube terminating 4.5 cm above the elijah. Right-sided pigtail catheter in place. No definite pneumothorax seen. Persistent patchy opacities with bronchial wall thickening. This is similar to prior.
--- NOTE | ~2021-01-07 | XR_ITS ---
EXAMINATION: PORTABLE CHEST 1 VIEW CLINICAL INFORMATION: ETT placement . COMPARISON: 01/22/2021. TECHNIQUE: Portable frontal view of the chest was obtained. FINDINGS: Endotracheal tube tip approximately 5 cm above the elijah. Right adjacent venous catheter near the expected cavoatrial junction. Lungs are hypoexpanded with patchy bilateral airspace disease worsened from the prior study especially in the left lung with obscuration of the left heart border and and left mediastinum now present. No significant effusion or pneumothorax. Nasogastric tube along the greater curve of the stomach with the tip directed towards the antrum. XR/XR chest 1V IMPRESSION: Intubated with tubes and lines as described. Worsened patchy bilateral airspace disease left more so than right.
--- NOTE | 2021-01-07 05:18 | ECG_ITS ---
Test Reason : SOB Blood Pressure : / mmHG Vent. Rate : 119 BPM Atrial Rate : 119 BPM P-R Int : 128 ms QRS Dur : 072 ms QT Int : 316 ms P-R-T Axes : 032 012 183 degrees QTc Int : 444 ms Sinus tachycardia Voltage criteria for left ventricular hypertrophy ST & T wave abnormality, consider inferolateral ischemia Abnormal ECG When compared with ECG of 01-JAN-2021 15:19, No significant change was found Referred By: Krys Vargas Electronically Signed By:Samson Stephens
--- NOTE | 2021-01-07 05:19 | ED_ITS ---
HPI - SOB/Dyspnea General Chief Complaint: Upper Respiratory Symptoms Stated Complaint: SOB/covid Time Seen by Provider: 01/07/21 05:17 Source: patient and EMS Mode of arrival: EMS Limitations: other (Shortness of breath) History of Present Illness HPI Narrative: Patient comes emergency room in moderate respiratory distress. Patient was discharged from the hospital on January 04, patient was hospitalized for a GI bleed, cirrhosis, COVID-19 and asthma exacerbation. Patient states that yesterday he started feeling short of breath, his inhalers were not working. Patient called the ambulance due to shortness of breath, his oxygen saturation was in the low 70s. Patient was put on a CPAP, oxygen saturation improved to the mid 80s. Patient denies chest pain. Per EMS, patient received 125 mg of Solu-Medrol and a DuoNeb treatment MD elicited complaint: shortness of breath Related Data Home Medications Medication Instructions Recorded Confirmed oxycodone 40 mg PO Q4H PRN 06/08/20 01/07/21 aspirin 1 tab PO DAILY 01/01/21 01/01/21 clopidogrel 1 tab PO DAILY 01/01/21 01/01/21 hydralazine 25 mg PO TID 01/01/21 01/01/21 hydromorphone 1 tab PO BEDTIME PRN 01/01/21 01/01/21 metoprolol succinate 100 mg PO DAILY 01/01/21 01/07/21 Humalog KwikPen Insulin 60 units SUBCUT TID 01/02/21 01/07/21 Previous Rx's Medication Instructions Recorded ondansetron 4 mg PO Q6-8H PRN #14 tab 11/28/20 albuterol sulfate [Ventolin HFA] 2 puff INHALATION Q4H PRN #8.5 g 01/04/21 prednisone 40 mg PO DAILY #6 tab 01/04/21 Allergies Allergy/AdvReac Type Severity Reaction Status Date / Time clindamycin [CLINDAMYCIN] Allergy Intermediate RASH ALL Verified 01/01/21 13:05 OVER SKIN ON BACK daptomycin [DAPTOMYCIN] Allergy Mild UNKNOWN Verified 01/01/21 13:05 doxycycline [DOXYCYCLINE] Allergy Mild HIVES Verified 01/01/21 13:05 vancomycin [VANCOMYCIN] Allergy Mild UNKNOWN Verified 01/01/21 13:05 amoxicillin Allergy Unknown Unknown Verified 01/01/21 13:05 cephalexin [From Keflex] Allergy Unknown HIVES Verified 01/01/21 13:05 penicillin V Allergy Unknown Unknown Verified 01/01/21 13:05 Sulfa (Sulfonamide Allergy Unknown Unknown Verified 01/01/21 13:05 Antibiotics) sulfamethoxazole Allergy Unknown HIVES Verified 01/01/21 13:05 [From Bactrim] trimethoprim [From Bactrim] Allergy Unknown HIVES Verified 01/01/21 13:05 Review of Systems Review of Systems: Constitutional : No Weight loss, No Fever, No Chills, No Night Sweats, No Fatigue, No Malaise ENT/Mouth : No Hearing loss, No Ear Pain, No Nasal Congestion, No Sinus Pain, No Hoarseness, No sore throat, No Rhinorrhea, No Swallowing Difficulty Eyes: No Eye Pain, No Swelling, No Redness, No Foreign Body, No Discharge, No Vision Changes Cardiovascular : No Chest Pain, No SOB, No Dyspnea on Exertion, No Orthopnea, No Edema, No Palpitations Respiratory : Complaining of moderate to severe shortness of breath, wheezing Gastrointestinal : No Nausea, No Vomiting, No Diarrhea, No Constipation, No abdominal Pain, No Hematochezia, No Melena Genitourinary : no irregular bleeding, No Dysuria, No Urinary Frequency, No Hematuria, No Urinary Incontinence, No Urgency, No Flank Pain, No Urinary Flow Changes, No Hesitancy Musculoskeletal : No joint pain, No Myalgias, No Joint Swelling Skin : No Skin Lesions, No rash Neuro : No Weakness, No Numbness, No Paresthesias, No Loss of Consciousness, No Dizziness, No Headache Psych : No Anxiety/Panic, No Depression, No SI/HI/AH/VH, No Social Issues, Heme/Lymph: No Bruising, No Bleeding,No Lymphadenopathy Endocrine : No Polyuria, No Polydipsia, No Temperature Intolerance [facility] Past Medical History Medical History Amputated below knee Chronic kidney disease (CKD), stage III (moderate) Cirrhosis Diabetes Hepatitis C, chronic Hypertension Opiate abuse, episodic Surgical History History of shoulder surgery Social History Social History Household Members: None Housing: House Do you presently have visiting nurse or other home services: Yes ([employer], every day) Alcohol intake: unknown Patient Tobacco Use Status: Never used Tobacco e-Cigarette/Vaping Use: Never Used Substance Use Type: Opiates Advance Directives: No Advance Directives Information Provided: No Advance Directives Date on File: 01/01/21 service: No Current occupational status: disabled Physical Exam Vital Signs: Vital Signs: Last Vital Signs Pulse 120 H 01/07/21 07:31 Resp 28 H 01/07/21 07:31 BP 125/58 L 01/07/21 07:31 Pulse Ox 92 01/07/21 07:31 Oxygen Flow Rate 100 01/07/21 05:11 Body Mass Index 37.2 Appearance: Alert. Oriented X3. In moderate respiratory distress Eyes: Pupils equal, round and reactive to light. ENT: Pharynx normal. Neck: Normal inspection. Neck supple. No lymph nodes noted. No crepitus CVS: Tachycardic and rhythm. Pulses normal. Normal S1 and S2 Respiratory: Moderate respiratory distress, oxygen saturation is in the mid 80s on CPAP, 94% on a non-rebreather Abdomen: Soft and nontender. No rigidity. No distention. good BS x4 Skin: Skin warm and dry. Normal skin color. Normal skin turgor. Extremities: No lower extremity edema. No lower extremity edema. No Lacerations. No Rash Neuro: Oriented X 3. No motor deficit. No sensory deficit. Moving all extermities. No slurred speech. Course Course Course Narrative: Patient's oxygen saturation stay steady on a non-rebreather, at this time, he will be switched to high-flow. As the patient was getting a breathing treatment with 7 L of oxygen, his oxygen saturation dropped to low 80s. There was 1 read of a low blood pressure in the mid 80s, patient's daughter states that the cough was not properly placed. When we checked, the blood pressure was 94 systolic Patient is on high-flow, oxygen saturation ranging between 89-92%. Patient came in with a glucose of 546, anion gap is closed. Patient's creatinine is elevated, which is chronic for the patient Troponin is thus 52.7, troponin prior to discharge is 36.4. Changes likely due to demand ischemia. There are no acute/new EKG changes I spoke with Dr. Pitts, time, patient does not meet admission criteria for ICU, Dr. Pitts spoke to Dr. Thao who agrees to admit the patient I discussed the patient with Dr. Lomax, states that he will not accept the patient until the medical reconciliation is done. Patient's nurse informed. Med rec being done now MDM - SOB/Dyspnea Lab Data Result diagrams: 01/07/21 05:21 01/07/21 05:17 Labs: Lab Results 01/07/21 01/07/21 01/07/21 Range/Units 05:17 05:17 05:17 WBC (4.8-10.8) X10*3/uL RBC (4.60-5.80) X10*6/uL Hgb (14.0-18.0) g/dl Hct (42-52) % MCV (80-98) fL MCH (27.0-33.0) pg MCHC (31.0-36.0) g/dl RDW (11.0-16.0) % Plt Count (160-400) X10*3/uL MPV (9.4-12.4) fL Immature Gran % (Auto) (0.0-0.4) % Neut % (Auto) (45-73) % Lymph % (Auto) (20-40) % [place] % (Auto) (2-11) % Eos % (Auto) (0-4) % Baso % (Auto) (0-2) % Lymph # (Auto) (1.2-4.9) X10*3/uL [place] # (Auto) (0.1-1.2) X10*3/uL Eos # (Auto) (0.0-0.4) X10*3/uL Baso # (Auto) (0.0-0.2) X10*3/uL Abs Immat Gran (auto) (0.00-0.03) X10*3/uL Absolute Neuts (auto) (2.0-8.3) X10*3/uL Absolute Nucleated RBC (0.0-0.012) X10*3/uL Nucleated RBC % (auto) (0.0-0.2) /100WBC PT (10.8-13.0) SEC INR (0.9-1.1) Sodium 131 L (135-145) mmol/L Potassium 5.2 H (3.3-5.1) mmol/L Chloride 107 (96-108) mmol/L Carbon Dioxide 13 L (22-29) mmol/L Anion Gap 16 (12-20) BUN 68 H (9-16) mg/dL Creatinine 3.17 H (0.5-1.4) mg/dL Estim Creat Clear Calc 42.4 Estimated GFR 21 Random Glucose 546 H* (60-115) mg/dL Lactic Acid 3.2 H* (0.5-2.0) mmol/L Calcium 7.9 L (8.4-10.2) mg/dL Total Bilirubin 0.3 (0.0-1.0) mg/dL Direct Bilirubin < 0.2 (0.0-0.5) mg/dL AST 32 (5-37) U/L ALT 37 (0-40) U/L Alkaline Phosphatase 183 H (39-117) U/L Troponin I High Sens 52.7 H* (<3.5-35.0) ng/L B-Natriuretic Peptide 575 H (<100) pg/mL Total Protein 6.2 L (6.5-8.0) g/dL Albumin 2.2 L (3.5-5.0) g/dL COVID-19 ([facility]) (Negative) COVID-19 Clin Com 01/07/21 01/07/21 01/07/21 Range/Units 05:21 05:32 05:32 WBC 13.1 H (4.8-10.8) X10*3/uL RBC 3.81 L (4.60-5.80) X10*6/uL Hgb 10.4 L (14.0-18.0) g/dl Hct 32.2 L (42-52) % MCV 84.5 (80-98) fL MCH 27.3 (27.0-33.0) pg MCHC 32.3 (31.0-36.0) g/dl RDW 14.4 (11.0-16.0) % Plt Count 184 D (160-400) X10*3/uL MPV 12.8 H (9.4-12.4) fL Immature Gran % (Auto) 0.6 H (0.0-0.4) % Neut % (Auto) 85.7 H (45-73) % Lymph % (Auto) 8.9 L (20-40) % [place] % (Auto) 4.7 (2-11) % Eos % (Auto) 0.0 (0-4) % Baso % (Auto) 0.1 (0-2) % Lymph # (Auto) 1.2 (1.2-4.9) X10*3/uL [place] # (Auto) 0.6 (0.1-1.2) X10*3/uL Eos # (Auto) 0.0 (0.0-0.4) X10*3/uL Baso # (Auto) 0.0 (0.0-0.2) X10*3/uL Abs Immat Gran (auto) 0.08 H (0.00-0.03) X10*3/uL Absolute Neuts (auto) 11.2 H (2.0-8.3) X10*3/uL Absolute Nucleated RBC 0.000 (0.0-0.012) X10*3/uL Nucleated RBC % (auto) 0.0 (0.0-0.2) /100WBC PT 12.4 (10.8-13.0) SEC INR 1.0 (0.9-1.1) Sodium (135-145) mmol/L Potassium (3.3-5.1) mmol/L Chloride (96-108) mmol/L Carbon Dioxide (22-29) mmol/L Anion Gap (12-20) BUN (9-16) mg/dL Creatinine (0.5-1.4) mg/dL Estim Creat Clear Calc Estimated GFR Random Glucose (60-115) mg/dL Lactic Acid (0.5-2.0) mmol/L Calcium (8.4-10.2) mg/dL Total Bilirubin (0.0-1.0) mg/dL Direct Bilirubin (0.0-0.5) mg/dL AST (5-37) U/L ALT (0-40) U/L Alkaline Phosphatase (39-117) U/L Troponin I High Sens (<3.5-35.0) ng/L B-Natriuretic Peptide (<100) pg/mL Total Protein (6.5-8.0) g/dL Albumin (3.5-5.0) g/dL COVID-19 ([facility]) Positive A (Negative) COVID-19 Clin Com See Note ECG Data Attestation: I personally reviewed and interpreted this ECG as follows: (Sinus tachycardia, heart rate 119, ST segment depressions in lead 1, 2, aVL, mild elevation in AVR, no acute changes from EKG from January 01, QTC 444) Critical Care Time Critical Care Time Total Critical Care Time: 90 Discharge Plan Discharge Clinical Impression: COVID-19 Respiratory failure Qualifiers: Chronicity: unspecified Prescriptions: No Action ondansetron 4 mg tablet,disintegrating 4 mg PO Q6-8H PRN (Reason: nausea and vomiting) Qty: 14 RF: 0 metoprolol succinate 100 mg tablet extended release 24 hr 100 mg PO DAILY RF: 0 hydralazine 25 mg Tablet 25 mg PO TID RF: 0 clopidogrel 75 mg tablet 1 tab PO DAILY RF: 0 Hold Instructions: Resume on 01/20/21. hold pending instructions from [place] stro[facility]ologist aspirin 81 mg tablet,delayed release (DR/EC) 1 tab PO DAILY RF: 0 Hold Instructions: Resume on 01/20/21. hold pending instructions from [place] stroenterologist hydromorphone 4 mg tablet 1 tab PO BEDTIME PRN (Reason: pain) RF: 0 Humalog KwikPen Insulin 200 UNITS/ML 60 units subcut TID RF: 0 prednisone 20 mg tablet 40 mg PO DAILY Qty: 6 RF: 0 albuterol sulfate [Ventolin HFA] 90 mcg/actuation Hfa Aerosol Inhaler 2 puff inhalation Q4H PRN (Reason: shortness of breath or wheeze) Qty: 8.5 RF: 0 oxycodone 20 mg Tablet 40 mg PO Q4H PRN (Reason: Pain) RF: 0
[2021-01-07 05:27] LABS: Basophils Percent Auto 0.1 % (0-2); Hematocrit 32.2 % (42-52); Hemoglobin 10.4 g/dl (14.0-18.0); Imm Gran Abs Auto 0.08 X10*3/uL (0.00-0.03); Imm Gran Pct Auto 0.6 % (0.0-0.4); Lymphocytes Absolute Auto 1.2 X10*3/uL (1.2-4.9); Lymphocytes Percent Auto 8.9 % (20-40); MANUAL DIFF FLAG NO; Mean Corpuscular HGB Conc 32.3 g/dl (31.0-36.0); Mean Corpuscular Hemoglobin 27.3 pg (27.0-33.0); Mean Corpuscular Volume 84.5 fL (80-98); Mean Platelet Volume 12.8 fL (9.4-12.4); Monocytes Absolute Auto 0.6 X10*3/uL (0.1-1.2); Monocytes Percent Auto 4.7 % (2-11); Neutrophils Absolute Auto 11.2 X10*3/uL (2.0-8.3); Neutrophils Percent Auto 85.7 % (45-73); Platelet Count 184 X10*3/uL (160-400); Red Blood Count 3.81 X10*6/uL (4.60-5.80); Red Cell Distribution Width 14.4 % (11.0-16.0); White Blood Count 13.1 X10*3/uL (4.8-10.8)
[2021-01-07 05:43] LABS: Prothrombin Time 12.4 SEC (10.8-13.0)
[2021-01-07 05:51] LABS: IDNOW Serial# 9DD0AD1C
[2021-01-07 05:52] LABS: COVID-19 Test Positive (Negative)
[2021-01-07 06:03] LABS: Lactic Acid 3.2 mmol/L (0.5-2.0)
[2021-01-07 06:11] LABS: Alanine Aminotransferase 37 U/L (0-40); Albumin Level 2.2 g/dL (3.5-5.0); Alkaline Phosphatase 183 U/L (39-117); Anion Gap 16 (12-20); Aspartate Amino Transferase 32 U/L (5-37); B Type Natriuretic Peptide 575 pg/mL (<100); Bilirubin Direct < 0.2 mg/dL (0.0-0.5); Bilirubin Total 0.3 mg/dL (0.0-1.0); Blood Urea Nitrogen 68 mg/dL (9-16); Calcium 7.9 mg/dL (8.4-10.2); Carbon Dioxide 13 mmol/L (22-29); Chloride 107 mmol/L (96-108); Creatinine Clr Calc Pharmacy 42.4; Estimated Glomerular Filt Rate 21; Glucose Random 546 mg/dL (60-115); Potassium 5.2 mmol/L (3.3-5.1); Sodium 131 mmol/L (135-145); Total Protein 6.2 g/dL (6.5-8.0); Troponin-I High Sensitivity 52.7 ng/L (<3.5-35.0)
--- NOTE | 2021-01-07 06:41 | PC.NURSE ---
pharmacy called for solumederal. due to the pyxis is locked out at this time. and no other pyxis in the ed has this medication. pt sat 92% rr 33 on 100% high flow and nonrebreather. hr elevated 129 and sat 92%
[2021-01-07] MEDS: methylPREDNISolone Sod Succ 125 MG/2 ML VIAL IVPUSH (06:57)
[2021-01-07] MEDS: Insulin Regular, Human 100 UNIT/ML 3 ML VIAL 10 UNIT IVPUSH ×2 (07:08→08:51)
[2021-01-07] MEDS: levoFLOXacin/D5W 500 MG/100 ML PIGGYBACK 100 MG IV (07:08)
[2021-01-07] MEDS: 0.9 % Sodium Chloride 1,000 ML 999 ML IVCONT (07:09)
[2021-01-07 07:26] LABS: Reflex Lactate? Lactic Acid Added
[2021-01-07] MEDS: LORazepam 2 MG/ML VIAL 1 MG IVPUSH (07:28)
[2021-01-07 08:22] LABS: Venous Blood Gas Refer to POC result
[2021-01-07 08:22] LABS: VBG Base Excess -14.2 mmol/L; VBG HCO3 11 mmol/L (22-26); VBG pCO2 26 mmHg; VBG pH 7.23 (7.32-7.43); VBG pO2 54 mmHg
[2021-01-07 08:27] LABS: Glucose, Whole Blood 453 mg/dL (60-115)
[2021-01-07 08:42] LABS: ~Lactic Acid-LAB USE ONLY 4.4 mmol/L (0.5-2.0)
[2021-01-07 08:51] LABS: ABG Base Excess -13.2 mmol/L; ABG HCO3 10 mmol/L (22-26); ABG pCO2 19 mmHg (32-45); ABG pH 7.32 (7.35-7.45); ABG pO2 88 mmHg (83-108)
[2021-01-07 09:35] LABS: Glucose, Whole Blood 379 mg/dL (60-115)
[2021-01-07 10:15] LABS: Reflex Lactate? 2 Y
[2021-01-07 10:17] LABS: D Dimer 1581 NG/ML
[2021-01-07 10:28] LABS: Anion Gap 17 (12-20); Blood Urea Nitrogen 69 mg/dL (9-16); C Reactive Protein 14.41 mg/dL (< or = 0.50); Calcium 7.5 mg/dL (8.4-10.2); Carbon Dioxide 10 mmol/L (22-29); Chloride 109 mmol/L (96-108); Creatinine Clr Calc Pharmacy 38.6; Estimated Glomerular Filt Rate 19; Glucose Random 517 mg/dL (60-115); Potassium 5.1 mmol/L (3.3-5.1); Sodium 131 mmol/L (135-145)
[2021-01-07 10:36] LABS: Glucose, Whole Blood 452 mg/dL (60-115)
[2021-01-07 10:37] LABS: Acetone, serum QL Negative (Negative)
[2021-01-07 10:58] LABS: ABG Refer to POC result
[2021-01-07] MEDS: Insulin Regular, Human 100 UNIT/ML 3 ML VIAL IVPUSH (11:17)
[2021-01-07] MEDS: Insulin Regular/NS 100 UNIT/100 ML PLAST..BAG IVCONT (11:25)
[2021-01-07] MEDS: Acetaminophen 325 MG TABLET 650 MG PO (11:53)
[2021-01-07] MEDS: Omeprazole 40 MG CAPSULE.DR PO (11:54)
[2021-01-07] MEDS: dexAMETHasone 6 MG TABLET PO (11:54)
[2021-01-07] MEDS: Heparin Sodium,Porcine 5,000 UNIT/ML VIAL 5000 UNIT SUBCUT ×2 (11:54→19:32)
[2021-01-07 12:14] LABS: Glucose, Whole Blood 435 mg/dL (60-115)
[2021-01-07] MEDS: Sodium Bicarbonate 8.4% 150 MEQ in Dextrose 5 % 850 ML 50 MEQ IV (12:21)
--- NOTE | 2021-01-07 12:56 | P.HPCC_ITS ---
History of Present Illness Date of Service: 01/07/21 Chief Complaint: Shortness of breath 45-year-old gentleman with underlying diabetes mellitus, CKD stage 3, peripheral vascular disease status post bilateral BKA, CVA on dual antiplatelet therapy, hep C cirrhosis, asthma, COVID-19 positive on 01/01/2021, recently hospitalized at [facility] on 01/01/2021 through 01/04/2021 for lower GI bleed, cirrhosis, COVID-19. Patient has had CT chest demonstrated colonic thickening versus mass, however endoscopy/colonoscopy were deferred for 2 weeks for resolution of his COVID symptoms. He has been admitted on 01/07/2021 with progressive hypoxemia now requiring high-flow nasal cannula, acute on chronic kidney injury, hyperglycemia, and significant metabolic acidosis. Review of Systems Constitutional: Constitutional: Denies daytime sleepiness, Denies excessive sweating, Denies fatigue, Denies fever(s), Denies lethargy, Denies malaise, Den ies night sweats, Denies snoring and Denies weight loss Eyes: Eyes: Denies blurry vision and Denies itchy eyes ENT: Denies nasal congestion, Denies post nasal drip, Denies sinus pain, Denies sinus pressure and Denies other ( Thrush) Cardiovascular: Cardiovascular: Denies chest pain, Denies pedal edema, Reports dyspnea, Denies orthopnea and Denies paroxysmal nocturnal dyspnea Respiratory: Respiratory: Denies cough, Denies hemoptysis, Denies excessive phlegm production, Reports dyspnea, Denies snoring and Denies wheezing Gastrointestinal: Gastrointestinal: Reports abdominal pain and Denies heartburn Musculoskeletal: Musculoskeletal: Denies myalgias, Denies arthralgias and Denies joint swelling Integumentary/Breasts: Skin/Breast: Denies rash Neurologic: Denies memory loss and Denies seizure-like activity Psychiatric: Psychiatric: Denies abnormal sleep pattern, Denies anxiety and Denies memory loss Endocrine: Endocrine: Denies excessive sweating, Denies fatigue and Denies heat intolerance Hematologic/Lymphatic: Hematologic/Lymphatic: Denies easy bruising Allergic/Immunologic: Allergic/Immunologic: Denies itchy eyes, Denies seasonal rhinorrhea and Denies wheezing PMFSH Past Medical History Medical History Amputated below knee Chronic kidney disease (CKD), stage III (moderate) Cirrhosis Diabetes Hepatitis C, chronic Hypertension Opiate abuse, episodic Surgical History Surgical History History of shoulder surgery Social History Social History Household Members: None Housing: House Do you presently have visiting nurse or other home services: Yes ([employer], every day) Alcohol intake: unknown Patient Tobacco Use Status: Never used Tobacco e-Cigarette/Vaping Use: Never Used Substance Use Type: Opiates Advance Directives: No Advance Directives Information Provided: No Advance Directives Date on File: 01/01/21 service: No Current occupational status: disabled Meds Allergies Allergy/AdvReac Type Severity Reaction Status Date / Time clindamycin [CLINDAMYCIN] Allergy Intermediate RASH ALL Verified 01/01/21 13:05 OVER SKIN ON BACK daptomycin [DAPTOMYCIN] Allergy Mild UNKNOWN Verified 01/01/21 13:05 doxycycline [DOXYCYCLINE] Allergy Mild HIVES Verified 01/01/21 13:05 vancomycin [VANCOMYCIN] Allergy Mild UNKNOWN Verified 01/01/21 13:05 amoxicillin Allergy Unknown Unknown Verified 01/01/21 13:05 cephalexin [From Keflex] Allergy Unknown HIVES Verified 01/01/21 13:05 penicillin V Allergy Unknown Unknown Verified 01/01/21 13:05 Sulfa (Sulfonamide Allergy Unknown Unknown Verified 01/01/21 13:05 Antibiotics) sulfamethoxazole Allergy Unknown HIVES Verified 01/01/21 13:05 [From Bactrim] trimethoprim [From Bactrim] Allergy Unknown HIVES Verified 01/01/21 13:05 Active Medications: Current Medications Generic Name Dose Route Start Last Admin Trade Name Freq PRN Reason Stop Dose Admin Acetaminophen 650 mg 01/07/21 11:33 01/07/21 11:53 Acetaminophen 325 Mg Tablet PO 650 mg Q6H PRN Administration Fever >101 Dexamethasone 6 mg 01/07/21 11:45 01/07/21 11:54 Dexamethasone 6 Mg Tablet PO 01/16/21 09:01 6 mg DAILY DELMA Administration Heparin Sodium (Porcine) 5,000 unit 01/07/21 11:45 01/07/21 11:54 Heparin Sodium,Porcine 5,000 Unit/Ml Vial SUBCUT 5,000 unit Q8H DELMA Administration Insulin Human Regular 100 unit in 100 mls @ 0 mls/hr 01/07/21 11:15 01/07/21 11:25 Myxredlin IVCONT 5 unit/hr .Q0M DELMA 5 mls/hr Administration Protocol Per Protocol Sodium Bicarbonate 150 meq/ 1,000 mls @ 50 mls/hr 01/07/21 11:45 01/07/21 12:21 Dextrose IV 50 mls/hr .Q20H DELMA Administration Metronidazole 500 mg in 100 mls @ 100 mls/hr 01/07/21 13:00 Flagyl IV Q8H DELMA Omeprazole 40 mg 01/07/21 11:45 01/07/21 11:54 Omeprazole 40 Mg Capsule.Dr PO 40 mg DAILY@0630 DELMA Administration Ondansetron HCl 4 mg 01/07/21 11:33 Ondansetron Hcl 4 Mg/2 Ml Vial IVPUSH Q8H PRN Nausea Home Medications Medication Instructions Recorded Confirmed Last Taken Type oxycodone 40 mg PO Q4H PRN 06/08/20 01/07/21 01/01/21 History aspirin 1 tab PO DAILY 01/01/21 01/01/21 01/01/21 History clopidogrel 1 tab PO DAILY 01/01/21 01/01/21 01/01/21 History hydralazine 25 mg PO TID 01/01/21 01/01/21 01/01/21 History hydromorphone 1 tab PO BEDTIME PRN 01/01/21 01/01/21 Unknown History metoprolol succinate 100 mg PO DAILY 01/01/21 01/07/21 01/01/21 History Humalog KwikPen Insulin 60 units SUBCUT TID 01/02/21 01/07/21 Unknown History insulin glargine U-300 conc 160 unit SUBCUT QAM 01/07/21 01/07/21 Unknown H istory [Toujeo SoloStar U-300 Insulin] Physical Exam Vital Signs: Vital Signs: Last Vital Signs Temp 98.6 F 01/07/21 08:32 Pulse 121 H 01/07/21 08:32 Resp 35 H 01/07/21 12:12 BP 144/80 H 01/07/21 08:32 Pulse Ox 95 01/07/21 08:32 Oxygen Flow Rate 100 01/07/21 05:11 Body Mass Index 37.2 Const: General: no acute distress, alert, awake and anxious Nutritional Appearance: obese Eyes: Sclerae: sclerae normal EOM: EOMs intact bilaterally Neck: Neck: Yes no lymphadenopathy, Yes trachea midline and Yes supple Resp: Effort & Inspection: normal respiratory effort and no respiratory distress Auscultation: crackles ( bibasilar) Cardio: Rate: tachycardic Rhythm: regular rhythm Heart sounds: no gallops, no murmurs and no rubs GI: Palpation (GI): Soft to palpation and Other GI palpation findings present ( Nontender) Auscultation: normal bowel sounds Extrem: General: No clubbing, No cyanosis and Yes other ( Bilateral BKA) Results Labs CBC and Chem 7: 01/07/21 05:21 01/07/21 09:36 Labs: Laboratory Results - last 24 hr 01/07/21 01/07/21 01/07/21 05:17 05:17 05:17 MCV MCH MCHC RDW Plt Count MPV Immature Gran % (Auto) Neut % (Auto) Lymph % (Auto) [place] % (Auto) Eos % (Auto) Baso % (Auto) Lymph # (Auto) [place] # (Auto) Eos # (Auto) Baso # (Auto) Abs Immat Gran (auto) Absolute Neuts (auto) Absolute Nucleated RBC Nucleated RBC % (auto) PT INR D-Dimer O2 Saturation ABG pH at Pt Temp ABG pCO2 at Pt Temp ABG pO2 at Pt Temp ABG HCO3 ABG Base Excess (Actual) VBG pH VBG pCO2 VBG pO2 VBG HCO3 VBG O2 Saturation VBG Base Excess Anion Gap 16 Estim Creat Clear Calc 42.4 Estimated GFR 21 POC Glucose Random Glucose 546 H* Lactic Acid 3.2 H* Lactic Acid Fup @ 2Hr Lactic Acid Fup @ 4Hr Calcium 7.9 L Total Bilirubin 0.3 Direct Bilirubin < 0.2 AST 32 ALT 37 Alkaline Phosphatase 183 H Troponin I High Sens 52.7 H* C-Reactive Protein B-Natriuretic Peptide 575 H Total Protein 6.2 L Albumin 2.2 L Acetone, Qual COVID-19 (CHUCKY) COVID-19 Clin Com 01/07/21 01/07/21 01/07/21 05:21 05:32 05:32 MCV 84.5 MCH 27.3 MCHC 32.3 RDW 14.4 Plt Count 184 D MPV 12.8 H Immature Gran % (Auto) 0.6 H Neut % (Auto) 85.7 H Lymph % (Auto) 8.9 L [place] % (Auto) 4.7 Eos % (Auto) 0.0 Baso % (Auto) 0.1 Lymph # (Auto) 1.2 [place] # (Auto) 0.6 Eos # (Auto) 0.0 Baso # (Auto) 0.0 Abs Immat Gran (auto) 0.08 H Absolute Neuts (auto) 11.2 H Absolute Nucleated RBC 0.000 Nucleated RBC % (auto) 0.0 PT 12.4 INR 1.0 D-Dimer O2 Saturation ABG pH at Pt Temp ABG pCO2 at Pt Temp ABG pO2 at Pt Temp ABG HCO3 ABG Base Excess (Actual) VBG pH VBG pCO2 VBG pO2 VBG HCO3 VBG O2 Saturation VBG Base Excess Anion Gap Estim Creat Clear Calc Estimated GFR POC Glucose Random Glucose Lactic Acid Lactic Acid Fup @ 2Hr Lactic Acid Fup @ 4Hr Calcium Total Bilirubin Direct Bilirubin AST ALT Alkaline Phosphatase Troponin I High Sens C-Reactive Protein B-Natriuretic Peptide Total Protein Albumin Acetone, Qual COVID-19 (CHUCKY) Positive A COVID-19 Clin Com See Note 01/07/21 01/07/21 01/07/21 08:10 08:15 08:22 MCV MCH MCHC RDW Plt Count MPV Immature Gran % (Auto) Neut % (Auto) Lymph % (Auto) [place] % (Auto) Eos % (Auto) Baso % (Auto) Lymph # (Auto) [place] # (Auto) Eos # (Auto) Baso # (Auto) Abs Immat Gran (auto) Absolute Neuts (auto) Absolute Nucleated RBC Nucleated RBC % (auto) PT INR D-Dimer O2 Saturation ABG pH at Pt Temp ABG pCO2 at Pt Temp ABG pO2 at Pt Temp ABG HCO3 ABG Base Excess (Actual) VBG pH 7.23 L VBG pCO2 26 VBG pO2 54 VBG HCO3 11 L VBG O2 Saturation 74.0 VBG Base Excess -14.2 Anion Gap Estim Creat Clear Calc Estimated GFR POC Glucose 453 H* Random Glucose Lactic Acid Lactic Acid Fup @ 2Hr 4.4 H* Lactic Acid Fup @ 4Hr Calcium Total Bilirubin Direct Bilirubin AST ALT Alkaline Phosphatase Troponin I High Sens C-Reactive Protein B-Natriuretic Peptide Total Protein Albumin Acetone, Qual COVID-19 ([facility]UCKY) COVID-19 Clin Com 01/07/21 01/07/21 01/07/21 08:43 09:30 09:36 MCV MCH MCHC RDW Plt Count MPV Immature Gran % (Auto) Neut % (Auto) Lymph % (Auto) [place] % (Auto) Eos % (Auto) Baso % (Auto) Lymph # (Auto) [place] # (Auto) Eos # (Auto) Baso # (Auto) Abs Immat Gran (auto) Absolute Neuts (auto) Absolute Nucleated RBC Nucleated RBC % (auto) PT INR D-Dimer 1581 O2 Saturation 94.0 ABG pH at Pt Temp 7.32 L ABG pCO2 at Pt Temp 19 L* ABG pO2 at Pt Temp 88 ABG HCO3 10 L ABG Base Excess (Actual) -13.2 VBG pH VBG pCO2 VBG pO2 VBG HCO3 VBG O2 Saturation VBG Base Excess Anion Gap Estim Creat Clear Calc Estimated GFR POC Glucose 379 H* Random Glucose Lactic Acid Lactic Acid Fup @ 2Hr Lactic Acid Fup @ 4Hr Calcium Total Bilirubin Direct Bilirubin AST ALT Alkaline Phosphatase Troponin I High Sens C-Reactive Protein B-Natriuretic Peptide Total Protein Albumin Acetone, Qual COVID-19 (CHUCKY) COVID-19 [facility] Com 01/07/21 01/07/21 01/07/21 09:36 10:15 10:33 MCV MCH MCHC RDW Plt Count MPV Immature Gran % (Auto) Neut % (Auto) Lymph % (Auto) [place] % (Auto) Eos % (Auto) Baso % (Auto) Lymph # (Auto) [place] # (Auto) Eos # (Auto) Baso # (Auto) Abs Immat Gran (auto) Absolute Neuts (auto) Absolute Nucleated RBC Nucleated RBC % (auto) PT INR D-Dimer O2 Saturation ABG pH at Pt Temp ABG pCO2 at Pt Temp ABG pO2 at Pt Temp ABG HCO3 ABG Base Excess (Actual) VBG pH VBG pCO2 VBG pO2 VBG HCO3 VBG O2 Saturation VBG Base Excess Anion Gap 17 Estim Creat Clear Calc 38.6 Estimated GFR 19 POC Glucose 452 H* Random Glucose 517 H* Lactic Acid Lactic Acid Fup @ 2Hr Lactic Acid Fup @ 4Hr TNP Calcium 7.5 L Total Bilirubin Direct Bilirubin AST ALT Alkaline Phosphatase Troponin I High Sens C-Reactive Protein 14.41 H B-Natriuretic Peptide Total Protein Albumin Acetone, Qual Negative COVID-19 (CHUCKY) COVID-19 [facility] Com 01/07/21 12:10 MCV MCH MCHC RDW Plt Count MPV Immature Gran % (Auto) Neut % (Auto) Lymph % (Auto) [place] % (Auto) Eos % (Auto) Baso % (Auto) Lymph # (Auto) [place] # (Auto) Eos # (Auto) Baso # (Auto) Abs Immat Gran (auto) Absolute Neuts (auto) Absolute Nucleated RBC Nucleated RBC % (auto) PT INR D-Dimer O2 Saturation ABG pH at Pt Temp ABG pCO2 at Pt Temp ABG pO2 at Pt Temp ABG HCO3 ABG Base Excess (Actual) VBG pH VBG pCO2 VBG pO2 VBG HCO3 VBG O2 Saturation VBG Base Excess Anion Gap Estim Creat Clear Calc Estimated GFR POC Glucose 435 H* Random Glucose Lactic Acid Lactic Acid Fup @ 2Hr Lactic Acid Fup @ 4Hr Calcium Total Bilirubin Direct Bilirubin AST ALT Alkaline Phosphatase Troponin I High Sens C-Reactive Protein B-Natriuretic Peptide Total Protein Albumin Acetone, Qual COVID-19 (CHUCKY) COVID-19 [facility] Com Imaging Radiologist's Impressions: Impressions Chest X-Ray 01/07/21 05:18 IMPRESSION: Patchy multifocal opacities in both lungs, most concerning for multifocal pneumonia. Pulmonary edema is on the differential, though less likely. Assessment and Plan (1) Acute respiratory failure with hypoxia: Status: Acute Assessment: 45-year-old gentleman with multiple medical issues admitted with acute hypoxic respiratory failure secondary to COVID-19 ARDS further complicated by acute on chronic renal failure and possible colitis on the background of peripheral vascular disease, hepatitis-C cirrhosis. Plan: Neuro: No acute issues. Underlying history of CVA, previously on dual antiplatelet therapy, now held secondary to recent GI bleed. Cardiac: No acute issues. Underlying history of hypertension. Pulmonary: Acute hypoxic respiratory failure secondary to COVID-19 ARDS now requiring high-flow nasal cannula. Continue to titrate off as tolerated. Continue with dexamethasone. Renal: Acute on chronic renal failure , likely multifactorial. Non oliguric. Continue to monitor renal indices and urine output. Continue with IV bicarbonate. Endo: hyperglycemia without diabetic ketoacidosis. Continue insulin drip. GI: Underlying history of colonic mass versus spasm, now with worsening lactic acidosis, concern for bowel ischemia. CT abdomen pelvis with p.o. contrast is pending. ID: COVID-19 and possible colitis. Continues on dexamethasone. Has received 1 dose of Levaquin. Started on Flagyl. Heme/Onc: No acute issues. Psych: No acute issues. Miscellaneous: No acute issues. Prophylaxis: Heparin Diet: diabetic Critical care time spent: 90 minutes (2) Acute on chronic kidney failure: Status: Acute (3) Colitis: Status: Acute (4) Acute respiratory distress syndrome (ARDS) due to COVID-19 virus: Status: Acute (5) Hepatitis C, chronic: Status: Acute (6) Cirrhosis: Status: Acute (7) Opiate abuse, episodic: Status: Acute (8) Hypertension: Status: Acute (9) Diabetes: Status: Acute (10) Amputated below knee: Status: Acute
[2021-01-07 13:26] LABS: Glucose, Whole Blood 460 mg/dL (60-115)
[2021-01-07] MEDS: metroNIDAZOLE/NS 500 MG/100 ML PIGGYBACK 100 MG IV (13:52)
[2021-01-07] MEDS: fentaNYL citrate/PF 100 MCG/2 ML VIAL 50 MCG IVPUSH ×3 (13:53→23:04)
[2021-01-07 14:59] LABS: Glucose, Whole Blood 431 mg/dL (60-115)
[2021-01-07 15:32] LABS: Glucose, Whole Blood 382 mg/dL (60-115)
[2021-01-07] MEDS: Barium Sulfate Oral (Vanilla) 450 ML ORAL.SUSP PO ×2 (17:12→17:13)
[2021-01-07] MEDS: diphenhydrAMINE HCL 50 MG/ML VIAL IVPUSH (17:29)
[2021-01-07 18:26] LABS: Glucose, Whole Blood 243 mg/dL (60-115)
[2021-01-07 18:26] LABS: Glucose, Whole Blood 324 mg/dL (60-115)
[2021-01-07 18:26] LABS: Glucose, Whole Blood 246 mg/dL (60-115)
[2021-01-07 19:14] LABS: VBG HCO3 15 mmol/L (22-26); VBG pCO2 28 mmHg; VBG pH 7.33 (7.32-7.43); VBG pO2 75 mmHg
[2021-01-07 19:32] LABS: Glucose, Whole Blood 183 mg/dL (60-115)
--- NOTE | 2021-01-07 19:40 | PC.NURSE ---
assumed care at 12:45; patient alert and oriented; follows commands, PERRLA, but sluggish. Patient on high flow 100% and 60 LPM and NRB 100%. Patient with dim lung sounds throughout and tight sounding bases. Patient with shallow respirations, some tachypnea in 24-5 range, positive orthopnea, tachypnea with activity. Patient was titrated to springer and NRB and SpO2 maintained, but then pulled off all oxygen equipment and desatted to 69% on room air. Patient was educated and encouraged to breathe more effectively with good effect but had to be put back on NRB with high flow, now SpO2 90-94%. RR was in 30's with event of pulling off mask and cannula. Patient heart sounds distant, some question of T-wave depression on telemetry and possibly j-point elevation, EKG taken and reviewed by MD, anterolateral T wave depression on EKG, MD aware. Patient reported some bloody diarrhea yesterday, no BM today, patient was taken for abdominal pelvic CT with contrast, and MD is aware of results. 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 Patient reported recent weight loss and poor appetite. Kept NPO today related to possible need for surgical intervention, ice chips ok per MD. Patient with insulin gtt titrated per protocol and MD. Patient with POCS dropping from 400's on arrival to 200's at 1900. Patient with bicarb gtt and critically low CO2, MD aware. 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 Patient reported rash and discoloration to left forearm and right forearm, elbow, and shoulder, and these were photographed. Patient seemed to express that he felt this was a current allergic reaction, but denied itchiness and airway is patent, MD notified, new order for benedryl administered with some good effect.
[2021-01-07 19:41] LABS: Anion Gap 12 (12-20); Blood Urea Nitrogen 71 mg/dL (9-16); Carbon Dioxide 17 mmol/L (22-29); Chloride 110 mmol/L (96-108); Creatinine Clr Calc Pharmacy 40.5; Estimated Glomerular Filt Rate 20; Glucose Random 238 mg/dL (60-115); Potassium 4.7 mmol/L (3.3-5.1); Sodium 134 mmol/L (135-145)
[2021-01-07 20:06] LABS: Venous Blood Gas Refer to POC result
[2021-01-07] MEDS: Insulin Regular/NS 100 UNIT/100 ML PLAST..BAG 8 UNIT IVCONT (20:34)
[2021-01-07 20:52] LABS: Glucose, Whole Blood 165 mg/dL (60-115)
[2021-01-07 21:29] LABS: Glucose, Whole Blood 123 mg/dL (60-115)
--- NOTE | 2021-01-07 22:32 | PC.NURSE ---
Pt a+o x3. In bed with HOB up at least 30 degrees and high flow O2 on at 100%/60L. Also has NRB mask on over NC. O2 sats 91-93%. Lungs dim throughout all serrano. Pt encouraged to C&DB. Repositioned with back care given. VCV air repositioning system used. Monitor shows SR, HR 90's, no ectopy. Bp stable to high with SBP 140's-170's. Pt face timed with daughter Daniela and when he talked, his O2 sat dropped to 80%. Recovered with deep breathing after about 20 mins. Maintained on insulin drip. See flow sheet.
[2021-01-07 22:41] LABS: Glucose, Whole Blood 116 mg/dL (60-115)
[2021-01-07] MEDS: Metoprolol Tartrate 50 MG TABLET PO (23:32)
[2021-01-07 23:47] LABS: Glucose, Whole Blood 138 mg/dL (60-115)
[2021-01-08] VITALS (37 sets, daily range): BP systolic 134–191; BP diastolic 61–90; PULSE 73–111; RESP 18–38; TEMP 36.2–36.5; O2SAT 83–99; BMI 37.4
[2021-01-08] MEDS: hydrALAZINE HCl 25 MG TABLET PO (00:27)
[2021-01-08 00:42] LABS: Glucose, Whole Blood 158 mg/dL (60-115)
[2021-01-08] MEDS: fentaNYL citrate/PF 100 MCG/2 ML VIAL 50 MCG IVPUSH ×4 (01:07→11:25)
[2021-01-08] MEDS: hydrALAZINE HCl 20 MG/ML VIAL IVPUSH (02:00)
--- NOTE | 2021-01-08 02:30 | PC.NURSE ---
PT RESTLESS, MOANING. BP ELEVATED TO SBP 170'S-180'S. JORDAN LU AWARE AND ORDERED METOPROLOL AND HYDRALIZINE. PT TAKES THESE MEDS AT HOME. RECEIVED FENTANYL FOR PHANTOM PAIN AND SHOULDER PAIN. ASKING FOR DILAUDID AND/OR PERCOCET. JORDAN LU DID NOT WANT TO ORDER THESE MEDS FOR FEAR OF RESP DEPRESSION. O2 SATS DROP WITH ANY ACTIVITY. THE O2 SAT WILL GO DOWN TO 78. OFFERED TO INSERT LAUREN CATH TO PRESERVE ENERGY BUT PT REFUSED. SUGGESTED CONDOM CATHETER BUT PT REFUSED. U/O IS GOOD. PT USING URINOL. PRESENTLY O2 SAT IS 88%. BP IS IMPROVED AFTER MEDS TO 149/70. MONITOR CONTINUES ST, HR 90'S.
[2021-01-08 02:44] LABS: Glucose, Whole Blood 170 mg/dL (60-115)
[2021-01-08] MEDS: LORazepam 1 MG TABLET PO (03:16)
--- NOTE | 2021-01-08 03:34 | PC.NURSE ---
PT CONTINUED TO BE RESTLESS AND MOANING. ASKING FOR MORE MEDICATION. 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 PT REPOSITIONED TO COMFORT.
[2021-01-08] MEDS: Heparin Sodium,Porcine 5,000 UNIT/ML VIAL 5000 UNIT SUBCUT ×3 (05:07→19:25)
[2021-01-08] MEDS: Omeprazole 40 MG CAPSULE.DR PO (05:08)
[2021-01-08 05:29] LABS: MANUAL DIFF FLAG NO
[2021-01-08 05:30] LABS: VBG Base Excess -4.5 mmol/L; VBG HCO3 19 mmol/L (22-26); VBG pCO2 30 mmHg; VBG pO2 57 mmHg
[2021-01-08 05:32] LABS: Hematocrit 27.1 % (42-52); Hemoglobin 8.8 g/dl (14.0-18.0); Imm Gran Abs Auto 0.05 X10*3/uL (0.00-0.03); Imm Gran Pct Auto 0.5 % (0.0-0.4); Lymphocytes Absolute Auto 0.7 X10*3/uL (1.2-4.9); Lymphocytes Percent Auto 7.4 % (20-40); Mean Corpuscular HGB Conc 32.5 g/dl (31.0-36.0); Mean Corpuscular Hemoglobin 26.8 pg (27.0-33.0); Mean Corpuscular Volume 82.6 fL (80-98); Mean Platelet Volume 12.8 fL (9.4-12.4); Monocytes Absolute Auto 0.4 X10*3/uL (0.1-1.2); Monocytes Percent Auto 4.4 % (2-11); Neutrophils Absolute Auto 8.7 X10*3/uL (2.0-8.3); Neutrophils Percent Auto 87.7 % (45-73); Platelet Count 141 X10*3/uL (160-400); Red Blood Count 3.28 X10*6/uL (4.60-5.80); Red Cell Distribution Width 14.2 % (11.0-16.0); White Blood Count 9.9 X10*3/uL (4.8-10.8)
[2021-01-08 05:35] LABS: Glucose, Whole Blood 168 mg/dL (60-115)
[2021-01-08 05:41] LABS: Venous Blood Gas Refer to POC result
[2021-01-08 06:03] LABS: Alanine Aminotransferase 29 U/L (0-40); Albumin Level 1.9 g/dL (3.5-5.0); Alkaline Phosphatase 142 U/L (39-117); Anion Gap 12 (12-20); Aspartate Amino Transferase 41 U/L (5-37); Bilirubin Total 0.4 mg/dL (0.0-1.0); Blood Urea Nitrogen 73 mg/dL (9-16); Calcium 7.9 mg/dL (8.4-10.2); Carbon Dioxide 20 mmol/L (22-29); Chloride 111 mmol/L (96-108); Creatinine Clr Calc Pharmacy 42.8; Estimated Glomerular Filt Rate 21; Glucose Random 168 mg/dL (60-115); Magnesium 2.1 mg/dL (1.6-2.6); Phosphorus 4.5 mg/dL (2.7-4.5); Potassium 4.7 mmol/L (3.3-5.1); Sodium 138 mmol/L (135-145); Total Protein 5.4 g/dL (6.5-8.0)
[2021-01-08] MEDS: Sodium Bicarbonate 8.4% 150 MEQ in Dextrose 5 % 850 ML 50 MEQ IV (06:39)
[2021-01-08] MEDS: LORazepam 2 MG/ML VIAL 1 MG IVPUSH ×2 (06:50→08:49)
--- NOTE | 2021-01-08 07:06 | PC.NURSE ---
Pt became extremely anxious and O2 sat was dropping tohigh 70's-low 80's. CIRCUS HAND Evon at bedside. Spoke to pt about being intubated. He understands and wants to be intubated if needed. Pt given ativan 1 mg iv with good effect. Bp stable.
[2021-01-08 08:00] LABS: Glucose, Whole Blood 135 mg/dL (60-115)
[2021-01-08] MEDS: dexAMETHasone 6 MG TABLET PO (08:04)
[2021-01-08] MEDS: Albumin Human 25 % 100 ML IV ×3 (08:48→19:25)
[2021-01-08] MEDS: chlordiazePOXIDE HCl 5 MG CAPSULE 10 MG PO (08:49)
[2021-01-08 10:16] LABS: Glucose, Whole Blood 142 mg/dL (60-115)
--- NOTE | 2021-01-08 11:32 | P.PNCC_ITS ---
Subjective Subjective Date of Service: 01/08/21 Interval History: ICU day 2 for acute hypoxic respiratory failure secondary to COVID-19 ARDS. 45-year-old gentleman with underlying diabetes mellitus, CKD stage 3, peripheral vascular disease status post bilateral BKA, CVA on dual antiplatelet therapy, hep C cirrhosis, asthma, COVID-19 positive on 01/01/2021, recently hospitalized at [facility] on 01/01/2021 through 01/04/2021 for lower GI bleed, cirrhosis, COVID-19. Patient has had CT chest demonstrated colonic thickening versus mass, however endoscopy/colonoscopy were deferred for 2 weeks for resolution of his COVID symptoms. He has been admitted on 01/07/2021 with progressive hypoxemia now requiring high-flow nasal cannula, acute on chronic kidney injury, hyperglycemia, and significant metabolic acidosis. His CT abdomen pelvis was negative colitis or mass. No events overnight. Renal function somewhat improved. Critical Care Time (minutes): 60 Physical Exam Vital Signs: Vital Signs: Last Vital Signs Temp 97.2 F 01/08/21 08:00 Pulse 111 H 01/08/21 11:00 Resp 31 H 01/08/21 11:00 BP 172/83 H 01/08/21 11:00 Pulse Ox 83 L 01/08/21 11:00 Oxygen Flow Rate 100 01/07/21 05:11 Body Mass Index 37.4 Const: General: no acute distress, alert and awake Nutritional Appearance: obese Eyes: Sclerae: sclerae normal EOM: EOMs intact bilaterally Neck: Neck: Yes no lymphadenopathy, Yes trachea midline and Yes supple Resp: Effort & Inspection: normal respiratory effort and no respiratory distress ( On high-flow nasal cannula and non-rebreather) Auscultation: crackles ( diffuse bilateral) Cardio: Rate: tachycardic Rhythm: regular rhythm Heart sounds: no gallops, no murmurs and no rubs GI: Palpation (GI): Soft to palpation and Other GI palpation findings present ( Nontender) Auscultation: normal bowel sounds Extrem: General: No clubbing, No cyanosis and Yes other ( bilateral BKA) Objective Data Labs CBC & Chem 7: 01/08/21 05:20 01/08/21 05:20 Labs: Laboratory Results - last 24 hr 01/07/21 01/07/21 01/07/21 10:15 12:10 12:47 WBC RBC Hgb Hct MCV MCH MCHC RDW Plt Count MPV Immature Gran % (Auto) Neut % (Auto) Lymph % (Auto) [place] % (Auto) Eos % (Auto) Baso % (Auto) Lymph # (Auto) [place] # (Auto) Eos # (Auto) Baso # (Auto) Abs Immat Gran (auto) Absolute Neuts (auto) Absolute Nucleated RBC Nucleated RBC % (auto) VBG pH VBG pCO2 VBG pO2 VBG HCO3 VBG O2 Saturation VBG Base Excess Sodium Potassium Chloride Carbon Dioxide Anion Gap BUN Creatinine Estim Creat Clear Calc Estimated GFR POC Glucose 435 H* 460 H* Random Glucose Lactic Acid Fup @ 4Hr TNP Calcium Phosphorus Magnesium Total Bilirubin AST ALT Alkaline Phosphatase Total Protein Albumin 01/07/21 01/07/21 01/07/21 14:21 15:28 16:14 WBC RBC Hgb Hct MCV MCH MCHC RDW Plt Count MPV Immature Gran % (Auto) Neut % (Auto) Lymph % (Auto) [place] % (Auto) Eos % (Auto) Baso % (Auto) Lymph # (Auto) [place] # (Auto) Eos # (Auto) Baso # (Auto) Abs Immat Gran (auto) Absolute Neuts (auto) Absolute Nucleated RBC Nucleated RBC % (auto) VBG pH VBG pCO2 VBG pO2 VBG HCO3 VBG O2 Saturation VBG Base Excess Sodium Potassium Chloride Carbon Dioxide Anion Gap BUN Creatinine Estim Creat Clear Calc Estimated GFR POC Glucose 431 H* 382 H* 324 H Random Glucose Lactic Acid Fup @ 4Hr Calcium Phosphorus Magnesium Total Bilirubin AST ALT Alkaline Phosphatase Total Protein Albumin 01/07/21 01/07/21 01/07/21 17:35 18:18 19:06 WBC RBC Hgb Hct MCV MCH MCHC RDW Plt Count MPV Immature Gran % (Auto) Neut % (Auto) Lymph % (Auto) [place] % (Auto) Eos % (Auto) Baso % (Auto) Lymph # (Auto) [place] # (Auto) Eos # (Auto) Baso # (Auto) Abs Immat Gran (auto) Absolute Neuts (auto) Absolute Nucleated RBC Nucleated RBC % (auto) VBG pH VBG pCO2 VBG pO2 VBG HCO3 VBG O2 Saturation VBG Base Excess Sodium 134 L Potassium 4.7 Chloride 110 H Carbon Dioxide 17 L Anion Gap 12 BUN 71 H Creatinine 3.32 H Estim Creat Clear Calc 40.5 Estimated GFR 20 POC Glucose 243 H 246 H Random Glucose 238 H D Lactic Acid Fup @ 4Hr Calcium 8.0 L D Phosphorus Magnesium Total Bilirubin AST ALT Alkaline Phosphatase Total Protein Albumin 01/07/21 01/07/21 01/07/21 19:07 19:27 20:39 WBC RBC Hgb Hct MCV MCH MCHC RDW Plt Count MPV Immature Gran % (Auto) Neut % (Auto) Lymph % (Auto) [place] % (Auto) Eos % (Auto) Baso % (Auto) Lymph # (Auto) [place] # (Auto) Eos # (Auto) Baso # (Auto) Abs Immat Gran (auto) Absolute Neuts (auto) Absolute Nucleated RBC Nucleated RBC % (auto) VBG pH 7.33 VBG pCO2 28 VBG pO2 75 VBG HCO3 15 L VBG O2 Saturation 91.0 VBG Base Excess -9.0 Sodium Potassium Chloride Carbon Dioxide Anion Gap BUN Creatinine Estim Creat Clear Calc Estimated GFR POC Glucose 183 H 165 H Random Glucose Lactic Acid Fup @ 4Hr Calcium Phosphorus Magnesium Total Bilirubin AST ALT Alkaline Phosphatase Total Protein Albumin 01/07/21 01/07/21 01/07/21 21:25 22:38 23:36 WBC RBC Hgb Hct MCV MCH MCHC RDW Plt Count MPV Immature Gran % (Auto) Neut % (Auto) Lymph % (Auto) [place] % (Auto) Eos % (Auto) Baso % (Auto) Lymph # (Auto) [place] # (Auto) Eos # (Auto) Baso # (Auto) Abs Immat Gran (auto) Absolute Neuts (auto) Absolute Nucleated RBC Nucleated RBC % (auto) VBG pH VBG pCO2 VBG pO2 VBG HCO3 VBG O2 Saturation VBG Base Excess Sodium Potassium Chloride Carbon Dioxide Anion Gap BUN Creatinine Estim Creat Clear Calc Estimated GFR POC Glucose 123 H 116 H 138 H Random Glucose Lactic Acid Fup @ 4Hr Calcium Phosphorus Magnesium Total Bilirubin AST ALT Alkaline Phosphatase Total Protein Albumin 01/08/21 01/08/21 01/08/21 00:31 02:38 05:11 WBC RBC Hgb Hct MCV MCH MCHC RDW Plt Count MPV Immature Gran % (Auto) Neut % (Auto) Lymph % (Auto) [place] % (Auto) Eos % (Auto) Baso % (Auto) Lymph # (Auto) [place] # (Auto) Eos # (Auto) Baso # (Auto) Abs Immat Gran (auto) Absolute Neuts (auto) Absolute Nucleated RBC Nucleated RBC % (auto) VBG pH VBG pCO2 VBG pO2 VBG HCO3 VBG O2 Saturation VBG Base Excess Sodium Potassium Chloride Carbon Dioxide Anion Gap BUN Creatinine Estim Creat Clear Calc Estimated GFR POC Glucose 158 H 170 H 168 H Random Glucose Lactic Acid Fup @ 4Hr Calcium Phosphorus Magnesium Total Bilirubin AST ALT Alkaline Phosphatase Total Protein Albumin 01/08/21 01/08/21 01/08/21 05:17 05:20 05:20 WBC 9.9 RBC 3.28 L Hgb 8.8 L Hct 27.1 L MCV 82.6 MCH 26.8 L MCHC 32.5 RDW 14.2 Plt Count 141 L MPV 12.8 H Immature Gran % (Auto) 0.5 H Neut % (Auto) 87.7 H Lymph % (Auto) 7.4 L [place] % (Auto) 4.4 Eos % (Auto) 0.0 Baso % (Auto) 0.0 Lymph # (Auto) 0.7 L [place] # (Auto) 0.4 Eos # (Auto) 0.0 Baso # (Auto) 0.0 Abs Immat Gran (auto) 0.05 H Absolute Neuts (auto) 8.7 H Absolute Nucleated RBC 0.000 Nucleated RBC % (auto) 0.0 VBG pH 7.40 VBG pCO2 30 VBG pO2 57 VBG HCO3 19 L VBG O2 Saturation 83.0 VBG Base Excess -4.5 Sodium 138 Potassium 4.7 Chloride 111 H Carbon Dioxide 20 L Anion Gap 12 BUN 73 H Creatinine 3.15 H Estim Creat Clear Calc 42.8 Estimated GFR 21 POC Glucose Random Glucose 168 H Lactic Acid Fup @ 4Hr Calcium 7.9 L Phosphorus 4.5 Magnesium 2.1 Total Bilirubin 0.4 AST 41 H ALT 29 Alkaline Phosphatase 142 H D Total Protein 5.4 L Albumin 1.9 L 01/08/21 01/08/21 07:47 09:51 WBC RBC Hgb Hct MCV MCH MCHC RDW Plt Count MPV Immature Gran % (Auto) Neut % (Auto) Lymph % (Auto) [place] % (Auto) Eos % (Auto) Baso % (Auto) Lymph # (Auto) [place] # (Auto) Eos # (Auto) Baso # (Auto) Abs Immat Gran (auto) Absolute Neuts (auto) Absolute Nucleated RBC Nucleated RBC % (auto) VBG pH VBG pCO2 VBG pO2 VBG HCO3 VBG O2 Saturation VBG Base Excess Sodium Potassium Chloride Carbon Dioxide Anion Gap BUN Creatinine Estim Creat Clear Calc Estimated GFR POC Glucose 135 H 142 H Random Glucose Lactic Acid Fup @ 4Hr Calcium Phosphorus Magnesium Total Bilirubin AST ALT Alkaline Phosphatase Total Protein Albumin Microbiology Microbiology Results: Microbiology 01/07/21 05:25 Blood - Venous Blood Culture - Preliminary No growth after 24 hours. 01/07/21 05:18 Blood - Venous Blood Culture - Preliminary No growth after 24 hours. Progress Note: A&P Assessment and plan (1) Acute respiratory distress syndrome (ARDS) due to COVID-19 virus: Status: Acute Assessment and Plan: Assessment: 45-year-old gentleman with multiple medical issues admitted with acute hypoxic respiratory failure secondary to COVID-19 ARDS further complicated by acute on chronic renal failure on the background of peripheral vascular disease and hepatitis-C cirrhosis. Plan: Neuro: No acute issues. Underlying history of CVA, previously on dual antiplatelet therapy, now held secondary to recent GI bleed. Cardiac: No acute issues. Underlying history of hypertension. Pulmonary: Acute hypoxic respiratory failure secondary to COVID-19 ARDS now requiring high-flow nasal cannula and non-rebreather to. Continue to titrate off as tolerated. Continue with dexamethasone. Renal: Acute on chronic renal failure , likely multifactorial, improving. Non oliguric. Continue to monitor renal indices and urine output. Endo: Hyperglycemia without diabetic ketoacidosis. Continue insulin drip. GI: Underlying history of colonic mass versus spasm, initially with worsening lactic acidosis and concern for bowel ischemia. CT abdomen pelvis with p.o. contrast with no evidence of colitis or mass. ID: COVID-19. Continues on dexamethasone. Heme/Onc: No acute issues. Psych: No acute issues. Miscellaneous: No acute issues. Prophylaxis: Heparin, ppi Diet: diabetic Critical care time spent: 60 minutes (2) Acute on chronic kidney failure: Status: Acute (3) Acute respiratory failure with hypoxia: Status: Acute (4) Hepatitis C, chronic: Status: Acute (5) Cirrhosis: Status: Acute (6) Diabetes: Status: Acute (7) Hypertension: Status: Acute Quality Stroke Does the patient have a stroke diagnosis?: No VTE Prior VTE?: No VTE Risk Level:: Medical - moderate - high VTE Device Contraindication: Treatment Not Indicated VTE Drug Contraindication: N/A - Med Ordered
[2021-01-08] MEDS: Furosemide 40 MG/4 ML VIAL IVPUSH (12:00)
[2021-01-08] MEDS: dexmedeTOMIDidine HCL/NS 400 MCG/100 ML INFUS..BTL 16.53 MCG IVCONT ×2 (12:28→16:57)
--- NOTE | 2021-01-08 12:35 | MHC.CM.PN ---
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 CM ATTEMPTED TO CALL NOAH CHRISTY AT 12:15PM [phone] TO GATHER ADDITIONAL INFO HOWEVER THERE WAS NO ANSWER. DURING PREVIOUS ADMISSION PT WAS AGREEABLE TO VNA HOWEVER WAS NOT ORDERED. D/C PLAN: HOME W/RESUMP OF TOOTH CLERK, FAMILY/TOOTH CLERK FOR TRANSPORT SISTER: MARTIN BLUE [phone] HCP: MOTHER MARTIN FERRELL [phone] PCP: CORNELIUS JOSEPH
[2021-01-08 12:49] LABS: Glucose, Whole Blood 170 mg/dL (60-115)
[2021-01-08] MEDS: propofoL 200 MG/20 ML VIAL 250 MG IVPUSH (13:20)
[2021-01-08] MEDS: propofoL 1,000 MG/100 ML VIAL 15.86 MG IVCONT (13:25)
[2021-01-08] MEDS: Cisatracurium Besylate 20 MG/10 ML VIAL 10 MG IVPUSH ×2 (13:27→14:41)
--- NOTE | 2021-01-08 13:52 | W.PM.CCHP ---
Procedures Date of Service Date of Service: 01/08/21 Central Line Placement Right IJ: Central Line Comments: Right internal jugular central venous catheter emergently placed for vascular access and vasopressor support under ultrasound guidance and usual sterile conditions with no immediate complications. X-ray for line position is pending.
[2021-01-08] MEDS: fentaNYL citrate/NS 1,000 MCG/100 ML PLAST..BAG 2.5 MCG IVCONT (13:54)
--- NOTE | 2021-01-08 13:55 | W.PM.CCHP ---
Procedures Date of Service Date of Service: 01/08/21 Intubation Intubation Comments: Patient with rapid development of progressive hypoxemia refractory to noninvasive positive pressure ventilatory support emergently intubated with 8.0 cuffed ET tube under glide scope guidance with no immediate complications. X-ray for ET tube position is pending.
[2021-01-08] MEDS: hydrALAZINE HCl 20 MG/ML VIAL 10 MG IVPUSH (14:02)
[2021-01-08] MEDS: Chlorhexidine Gluc Oral Rinse 15 ML MOUTHWASH BUCCAL ×2 (14:16→19:28)
[2021-01-08] MEDS: dexmedeTOMIDidine HCL/NS 400 MCG/100 ML INFUS..BTL 33.05 MCG IVCONT (14:40)
[2021-01-08 15:03] LABS: Glucose, Whole Blood 159 mg/dL (60-115)
[2021-01-08] MEDS: propofoL 1,000 MG/100 ML VIAL 39.66 MG IVCONT ×4 (15:18→22:28)
[2021-01-08 16:07] LABS: Glucose, Whole Blood 172 mg/dL (60-115)
[2021-01-08] MEDS: niCARdipine HCL 25 MG in 0.9 % Sodium Chloride 250 ML 52 MG IVCONT ×2 (16:50→21:13)
--- NOTE | 2021-01-08 17:26 | PC.NURSE ---
S/E Afebrile, WBC 9.9, preliminary BC negative x2. Patient anxious & restless throughout AM, Spo2 trending 81-88% on high flow 100%/60L & 100% NRB, RR mid 30's, breathing labored, accessory muscle use - MD notified - Ativan 1mg q4hr PRN administered w/ minimal effect - Precedex gtt ordered and administered - Spo2 continued to remain low 80's, RR 38-44, worsening respiratory distress, patient reports feeling more and more tired . 1325 - Intubated at bedside by Dr Pitts - ETT #8.0, 28cm @ [facility] 16/600/10/75% - Sedated w/ Propofol 250mg IVP & Nimbex 10mg IVP for intubation - started on Propofol gtt & Fentayl gtt - patient bucking vent, Spo2 mid 80's, SBP 180's, HR 110's - Hydralazine 10mg IVP administered w/ minimal effect - Propofol & Fentanyl maxed out- Started on Precedex gtt & Nimbex gtt. SBP up to 191/89 - MD notified - started on Cardene gtt - BP down to 162/80. Sinus HR 80's, ?ST depression on tele - MD aware. Right IJ TLC placed by MD. Albumin 100cc x4 & Lasix 40 IVP ordered and administered. LS dim throughout, scant clear inline secretions. CXR obtained for tube/line placement- see report. OGT placed & clamped. Continued on Insulin gtt per protocol, POC trending 130-170's. Patient had large soft blood streaked BM, H&H down to 8.8 & 27.1 - MD aware. Preston placed - initial 30cc yellow urine post placement - total output 1625, yellow. ? Penile implant - MD aware. NA Bicard gtt discontinued. No skin integrity concerns. Patient bathed, repo q2hr. Prevlon pad & air loss pump in place. Family updated.
[2021-01-08] MEDS: fentaNYL citrate/NS 1,000 MCG/100 ML PLAST..BAG 20 MCG IVCONT ×2 (17:55→21:15)
[2021-01-08 18:16] LABS: Glucose, Whole Blood 133 mg/dL (60-115)
[2021-01-08 20:04] LABS: Glucose, Whole Blood 111 mg/dL (60-115)
[2021-01-08 22:06] LABS: Glucose, Whole Blood 178 mg/dL (60-115)
[2021-01-08 23:17] LABS: Glucose, Whole Blood 177 mg/dL (60-115)
[2021-01-09] VITALS (37 sets, daily range): BP systolic 140–172; BP diastolic 62–81; PULSE 72–778; RESP 14–28; TEMP 36–36.8; O2SAT 20–96; BMI 41.4
[2021-01-09] MEDS: propofoL 1,000 MG/100 ML VIAL 39.66 MG IVCONT ×10 (00:52→22:07)
[2021-01-09 01:26] LABS: Glucose, Whole Blood 165 mg/dL (60-115)
[2021-01-09 01:26] LABS: Glucose, Whole Blood 170 mg/dL (60-115)
[2021-01-09] MEDS: Albumin Human 25 % 100 ML IV ×2 (02:10→20:33)
[2021-01-09] MEDS: fentaNYL citrate/NS 1,000 MCG/100 ML PLAST..BAG 20 MCG IVCONT ×5 (02:10→22:24)
[2021-01-09 02:25] LABS: Glucose, Whole Blood 144 mg/dL (60-115)
[2021-01-09 03:09] LABS: Glucose, Whole Blood 129 mg/dL (60-115)
[2021-01-09] MEDS: Heparin Sodium,Porcine 5,000 UNIT/ML VIAL 5000 UNIT SUBCUT ×3 (03:58→19:28)
[2021-01-09 04:12] LABS: Glucose, Whole Blood 125 mg/dL (60-115)
[2021-01-09 05:16] LABS: Glucose, Whole Blood 139 mg/dL (60-115)
[2021-01-09 05:16] LABS: VBG Base Excess -3.3 mmol/L; VBG HCO3 20 mmol/L (22-26); VBG pCO2 34 mmHg; VBG pH 7.39 (7.32-7.43); VBG pO2 53 mmHg
[2021-01-09 05:20] LABS: MANUAL DIFF FLAG NO
[2021-01-09 05:24] LABS: Hematocrit 23.6 % (42-52); Hemoglobin 7.6 g/dl (14.0-18.0); Imm Gran Abs Auto 0.06 X10*3/uL (0.00-0.03); Imm Gran Pct Auto 0.8 % (0.0-0.4); Lymphocytes Absolute Auto 0.6 X10*3/uL (1.2-4.9); Lymphocytes Percent Auto 8.6 % (20-40); Mean Corpuscular HGB Conc 32.2 g/dl (31.0-36.0); Mean Corpuscular Hemoglobin 27.2 pg (27.0-33.0); Mean Corpuscular Volume 84.6 fL (80-98); Mean Platelet Volume 12.6 fL (9.4-12.4); Monocytes Absolute Auto 0.4 X10*3/uL (0.1-1.2); Monocytes Percent Auto 5.4 % (2-11); NRBC Pct Auto 0.3 /100WBC (0.0-0.2); Neutrophils Percent Auto 85.2 % (45-73); Platelet Count 141 X10*3/uL (160-400); Red Blood Count 2.79 X10*6/uL (4.60-5.80); Red Cell Distribution Width 14.6 % (11.0-16.0); Venous Blood Gas Refer to POC result; White Blood Count 7.1 X10*3/uL (4.8-10.8)
[2021-01-09] MEDS: Insulin Regular/NS 100 UNIT/100 ML PLAST..BAG IVCONT (05:44)
[2021-01-09 05:52] LABS: Albumin Level 3.1 g/dL (3.5-5.0); Anion Gap 13 (12-20); Blood Urea Nitrogen 71 mg/dL (9-16); Calcium 8.2 mg/dL (8.4-10.2); Carbon Dioxide 22 mmol/L (22-29); Chloride 111 mmol/L (96-108); Creatinine Clr Calc Pharmacy 44.7; Estimated Glomerular Filt Rate 23; Glucose Random 148 mg/dL (60-115); Magnesium 2.3 mg/dL (1.6-2.6); Phosphorus 5.2 mg/dL (2.7-4.5); Potassium 4.4 mmol/L (3.3-5.1); Sodium 142 mmol/L (135-145)
[2021-01-09 06:15] LABS: Glucose, Whole Blood 127 mg/dL (60-115)
--- NOTE | 2021-01-09 06:34 | PC.NURSE ---
Patient sedated on Propofol, and Fentanyl. Patient unarousable, no cough , no gag reflex. On nimbex drip for vent synchrony. # 8 at 28 cm, vent settings 18/600/10/50%, OGT clamped. NSR with BBB, ST depressions, provider aware. Cardene drip titrated off, SBP goal <180. Insulin drip titrated per protocol. Urine output approx. 100 ml/hr. Skin intact, family updated x3.
[2021-01-09 07:31] LABS: Glucose, Whole Blood 160 mg/dL (60-115)
[2021-01-09] MEDS: methylPREDNISolone Sod Succ 125 MG/2 ML VIAL 80 MG IVPUSH ×2 (08:10→20:35)
[2021-01-09] MEDS: Chlorhexidine Gluc Oral Rinse 15 ML MOUTHWASH BUCCAL ×3 (08:10→20:36)
[2021-01-09 08:42] LABS: Glucose, Whole Blood 446 mg/dL (60-115)
[2021-01-09 08:44] LABS: Glucose, Whole Blood 153 mg/dL (60-115)
--- NOTE | 2021-01-09 09:06 | PC.NURSE ---
Addendum entered by Michelle Anthony RN 01/09/21 18:24: S/E VSS, o2 goal 88%+ per MD. Sedated on propofol and fentanyl, pt grimaces to noxious stimuli, weak cough/gag, unable to follow commands. Vent settings changed from below to rate of 16, FIO2 60%, maintaining O2 sat of 88-92% SR with BBB on tele, meds given via OG tube. U/O wnl, bath given, repo q2hr, prevalon mattress used Addendum entered by Michelle Anthony RN 01/09/21 12:52: FIO2 increased per low o2 sat. FIO2 at 80%. pt satting 88-90%, MD aware Addendum entered by Michelle Anthony RN 01/09/21 10:11: Vent settings changed- AC 12, TV 520, Peep 10, FIO2 50%. MD ok with o2 sat >88% Original Note: Pt satting 86-88% on 50% FIO2. Message sent to MD asking o2 goals, md said 90% or higher is goal, pt FIO2 increased to 60%.
--- NOTE | 2021-01-09 10:14 | HE.PHANOTE ---
PHARMACY NOTE: Ivermectin Dosing Dosing regimen is calculated using a adjusted body weight of 104 kg. Body weight adjusted based on 7% estimated body weight loss due to bilateral amputations and obesity. Ivermectin dosing according to Hiren COVID-19 Protocol of 0.3 mg/kg x 5 total doses. ~Julianna Aviles, AnaD, BCPS, BCCCP Pharmacy Clinical [employer] Instructor [id number]
--- NOTE | 2021-01-09 10:25 | CA_ITS ---
Transthoracic Echocardiogram Patient (Last, First, Middle): Joselito Preciado, Gender: Male Date of : 1975 Age: 45 Procedure Date: 01/09/2021 Procedure Type: Transthoracic Echocardiogram Location: ICU Height: 187.96 cm Weight: 146. kg BSA: 2.66 m2 Heart Rate: bpm BP: 161 / 75 mmHg Broomcorn Seeder: Referring MD: Satish Perez MD Co Teacher: Ki Rojas MD Symptoms: acute resp failure; r/o CHF Study Quality: Technically Difficult ECG Rhythm: Sinus Conclusions: - 1. Normal LV systolic function with mild to moderate left ventricular hypertrophy with pseudonormal filling pattern with elevated filling pressures 2. Right ventricle is not well visualized 3. Mildly dilated left atrium 4. Normal cardiac valvular Doppler 5. Normal calculated RV systolic pressure 6. Trivial pericardial effusion Findings Procedure Information Contrast agent, definity, is being given per protocol without apparent complications. The patient receives contrast. Left Ventricle Normal left ventricular size and systolic function. There is mildly increased left ventricular wall thickness. The visually estimated ejection fraction is between 55-60%. Spectral Doppler is indicative of a pseudonormal filling pattern. E/E prime ratio is >15, consistent with elevated filling pressures. Evidence suggests grade II (moderate) diastolic dysfunction. Right Ventricle The right ventricle was not well visualized. Atria The left atrium is mildly dilated. Interatrial shunt cannot be excluded. The right atrium was not well visualized. Aortic Valve The aortic valve structure and function is likely normal. There is no aortic valve stenosis. There is no aortic valve regurgitation. Mitral Valve Normal mitral valve structure and function. There is trace mitral valve regurgitation. There is no mitral valve stenosis. Pulmonic Valve The pulmonic valve was not well visualized. Tricuspid Valve The tricuspid valve was not well visualized. There is trace tricuspid valve regurgitation. The right ventricular systolic pressure is normal. The right ventricular systolic pressure is 17 mmHg. Normal right atrial pressure. There is no evidence of pulmonary hypertension. Great Vessels All visible segments of the aorta are normal in size. The pulmonary artery was not well visualized. Venous The inferior vena cava is normal in size and collapses greater than 50% with inspiration. Pericardium/Pleural There is a trivial circumferential pericardial effusion. Prior Study Comparison No prior study available for comparison. Measurements 2D Linear Measurements IVSd: 1.38 0.6-0.9/0.6-1.0 cm LVIDd: 4.56 3.9-5.3/4.2-5.9 cm LVIDd Index: 1.71 2.4-3.2/2.2-3.1 cm/m2 LVIDs: 3.28 2.0-3.6 cm LVPWd: 1.38 0.7-1.1 cm Ao Root: 3.00 2.1-3.5 cm LA Diam: 4.60 2.7-3.8/3.0-4.0 cm LAIDs Index: 1.73 1.5-2.3 cm/m2 LV Mass: 309.30 67-162/88-224 g LV Mass Index: 116.28 43-95/49-115 g/m2 LVOT Diam: 2.20 3.0+(-)1.3 cm Mitral Valve MV Pk E: 0.97 MV PK A: 0.88 MV Decel Time: 181.00 E/A: 1.10 E'Lateral: 5.22 E'Medial: 5.55 E/E' Med: 17.40 E/E' Lat: 18.50 PHT: 53.00 MVA PHT: 4.15 Decel Wetzel: 5.34 Aortic Valve AoV Pk Isra: 1.13 AoV Mn Isra: 0.75 AoV VTI: 0.29 AoV Pk Grad: 5.00 Aov Mn Grad: 3.00 JESSE Cont.VTI: 2.57 LVOT LVOT Pk Isra: 0.69 LVOT Mn Isra: 0.46 LVOT VTI: 0.19 LVOT Pk Grad: 2.00 LVOT Mn Grad: 1.00 LVOT Diam: 2.20 LVOT Area: 3.80 Diastolic Function MV Pk E: 0.97 MV Pk A: 0.88 E/A: 1.10 E'Medial: 5.55 E/E' Med: 17.40 E' Laterial: 5.22 E/E' Lat: 18.50 Tricuspid Valve TR Pk Isra: 1.86 TR Pk Grad: 14.00 RA Press: 3.00 RVSP: 17.00 Great Vessels Aorta Ao Root-2D: 3.00 2.0-3.7 cm Pulmonary Valve PV Pk Isra: 1.00 Peak PV Grad: 4.00 Updated in Other Vendor System with Status of Final Ki Rojas MD electronically signed on 01/09/2021 4:31:47 PM with status of Final
[2021-01-09] MEDS: fentaNYL citrate/PF 100 MCG/2 ML VIAL IVPUSH ×3 (10:35→13:16)
--- NOTE | 2021-01-09 10:42 | PM.CCPN ---
Subjective Subjective Date of Service: 01/09/21 Interval History: Mr. Preciado was admitted to ICU on January 07the with acute respiratory failure 2? COVID ARDS, hyperglycemia, KIRILL, and metabolic acidosis. 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 The patient had the [employer] COVID vaccine on October 24. Reportedly lives at home with his HISTORY OF PRESENT ILLNESS: The patient recently returned from a trip to [place] and came to our ED on January 01 with 2 days of cough, chest congestion, and wheezing. Multiple family members had similar symptoms. Additionally, he reported bilateral lower abdominal pain and small amounts of bright red blood per rectum for the prior 2 weeks. In the ED, he tested positive for COVID-19. Sat was 97% on RA. Hemoglobin was noted to be 9.8 compared to a baseline of around 11-12. DDimer and CRP were only mildly elevated. CXR showed NAD. CT of the abdomen and pelvis without contrast showed a 4.5 cm segment of distal transverse colon with circumferential wall thickening and luminal narrowing that could represent either spasm or colonic mass; there was also a masslike density near the ileocecal valve. Also demonstrated were splenomegaly and small upper abdominal varices but no ascites. The lung bases (my reading) showed a few questionable areas of ground-glass opacities. He was admitted and treated with steroids for asthma exaccerebation. He wheezing resolved. DAPT for his stroke was held and his Hb was stable and he had no bleeding. Bec of his COVID status, GI workup was deferred, as was GI f/u and treatment for his Hep C. His hematochezia was thought very possibly due to hemorrhoids found on exam. He was discharged home on January 04. On January 07 he represented to the ED in moderate respiratory distress. SpO2 was low 70s on room air, 88% on O2 FM, mid-80?s on CPAP, and 94% on HFNC 100%. Labs were notable for WBC 13, Hb 10.4, BUN/creat were 68/3.1 (from 53/3/0 on 01/04), Bicarb was 13, K was 5.2, gluc was 546, lactate was 3.2, alb was 2.2. Acetone was negative. DDimer was bumped to 1581 (from 506 on 01/03), CRP was up to 14. ABG (on ?100% FiO2) showed 7.32/19/88/-13. CXR showed patchy multifocal opacities in both lungs, c/w COVID. CT abdomen done for f/u of prev CT and bec of lactic acidosis showed the same two equivocal findings in the colon, one at the ileocecal valve region and one in the distal transverse colon ?which require further assessment in the setting of GI bleeding to exclude underlying malignancy.? Hepatic cirrhosis with portal venous hypertension as evidenced by splenomegaly and small upper abdominal varices was again demonstrated, w no significant ascites. The lung cuts showed severe bilat patchy opacities suggestive of infectious/inflammatory process. The patient was admitted to ICU. He was treated with dexamethasone, a bicarb drip, and insulin drip. U/o and renal fxn improved slightly. However oxygenation deteriorated, and he required tracheal intubation yesterday, along with NMB. This morning, he was still paralyzed on a Nimbex drip. Sat was up to 93% on FiO2 60%/+10. We turned the Nimbex off. Later in the morning, on propofol 50ug, fent 200ug, and insulin 2u/hr, HR was 85, BP 178/83. On AC 12/520/60%//+10, RR was 22, Ve 11.4L, PIP 23cm, ETCO2 27mm, Sat 84%. CVBG on that setting showed 7.37/36/-3. We got him better sedated with Ativan and Precedex, and ultimately the Sat to 90% on 60%/+10. He?s been afebrile thruout. PER about 3-4mm. No JVD at 30?. Chest with distant BS. CTA, with normal exp phase. RRR, normal S1 and S2, no M or G. Abdomen benign, with normal BS. No edema. According to the nurse, the patient did have some red flecks of blood in his stool overnite. LABORATORY DATA: As below. Notably, Hb down to 7.6 from 8.8 yesterday, 10.4 the day before. BUN/creat 71/3.0 (73/3.1 yest). Alb 3.1 (1.9 yest). ECHOCARDIOGRAM done by the tech and interpreted by me at the bedside: 1. Moderate LVH 2. Normal LV cavity size and fxn. EF 50-60%. No RWMAs. 3. Normal RV size 4. No significant TR, with normal RVSP. 5. IVC measured 2.3cm with no insp collapse. 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 The patient had the [employer] COVID vaccine on October 24. 1. Bilat pulmon infiltrates 2? COVID pneumonia. I?ve started him on ivermectin, changed his decadron to Solu-Medrol 80mg bid, and added vit D and thiamine. 2. ARDS 2? above. 3. Hypoxemic respiratory failure. Interestingly, his lung compliance in not bad, and he?s not as hypoxemic as I would have expected, giving his CT picture. I discussed his CT at length with Dr. Allen. It?s his opinion that the CT is definitely c/w COVID, even though it looks more of a typical infiltrate pattern, rather than the peripheral ground glass pattern typical of COVID. 4. Acute on chronic kidney injury. Likely 2? COVID. Fortunately, seems to be improving rather than deteriorating. At this time, no real imperative to attempt diuresis, palomo since in virtually all the COVID patients I?ve tried diuresing, their renal indices all got worse. I?ll want to take another look at his IVC. 5. GI. Hb recheck was 8.1. Not having any gross GI bleeding. But at this point, the situation is such that I would not put him on ASA, and would not give him more than 5000 u TID heparin for DVT prophylaxis. 6. ID. No reason to consider antibiotics at this point. I?ll send a sputum GS and u/a. 7. Hyperglycemia. Getting worse on the Solu-Medrol. Continue insulin drip. 8. Metabolic. Started on resin binder to control his potassium. 9. Nutrition. We?ll start tube feeds tomorrow. Critical care time (including extended chart rev and hosp course summary, and d/w pharmacy): 2+ hrs. Critical Care Time (minutes): 120 Physical Exam Vital Signs: Vital Signs: Last Vital Signs Temp 96.8 F 01/09/21 10:00 Pulse 74 01/09/21 10:00 Resp 16 01/09/21 10:00 BP 154/72 H 01/09/21 10:00 Pulse Ox 88 L 01/09/21 10:00 Oxygen Flow Rate 100 01/07/21 05:11 Body Mass Index 41.4 Objective Data Labs CBC & Chem 7: 01/09/21 10:37 01/09/21 05:07 Labs: Laboratory Results - last 24 hr 01/07/21 01/08/21 01/08/21 12:48 11:48 14:12 WBC RBC Hgb Hct MCV MCH MCHC RDW Plt Count MPV Immature Gran % (Auto) Neut % (Auto) Lymph % (Auto) [place] % (Auto) Eos % (Auto) Baso % (Auto) Lymph # (Auto) [place] # (Auto) Eos # (Auto) Baso # (Auto) Abs Immat Gran (auto) Absolute Neuts (auto) Absolute Nucleated RBC Nucleated RBC % (auto) VBG pH VBG pCO2 VBG pO2 VBG HCO3 VBG O2 Saturation VBG Base Excess Sodium Potassium Chloride Carbon Dioxide Anion Gap BUN Creatinine Estim Creat Clear Calc Estimated GFR POC Glucose 446 H* 170 H 159 H Random Glucose Calcium Phosphorus Magnesium Albumin 01/08/21 01/08/21 01/08/21 15:53 18:08 19:52 WBC RBC Hgb Hct MCV MCH MCHC RDW Plt Count MPV Immature Gran % (Auto) Neut % (Auto) Lymph % (Auto) [place] % (Auto) Eos % (Auto) Baso % (Auto) Lymph # (Auto) [place] # (Auto) Eos # (Auto) Baso # (Auto) Abs Immat Gran (auto) Absolute Neuts (auto) Absolute Nucleated RBC Nucleated RBC % (auto) VBG pH VBG pCO2 VBG pO2 VBG HCO3 VBG O2 Saturation VBG Base Excess Sodium Potassium Chloride Carbon Dioxide Anion Gap BUN Creatinine Estim Creat Clear Calc Estimated GFR POC Glucose 172 H 133 H 111 Random Glucose Calcium Phosphorus Magnesium Albumin 01/08/21 01/08/21 01/09/21 22:03 23:10 00:10 WBC RBC Hgb Hct MCV MCH MCHC RDW Plt Count MPV Immature Gran % (Auto) Neut % (Auto) Lymph % (Auto) [place] % (Auto) Eos % (Auto) Baso % (Auto) Lymph # (Auto) [place] # (Auto) Eos # (Auto) Baso # (Auto) Abs Immat Gran (auto) Absolute Neuts (auto) Absolute Nucleated RBC Nucleated RBC % (auto) VBG pH VBG pCO2 VBG pO2 VBG HCO3 VBG O2 Saturation VBG Base Excess Sodium Potassium Chloride Carbon Dioxide Anion Gap BUN Creatinine Estim Creat Clear Calc Estimated GFR POC Glucose 178 H 177 H 165 H Random Glucose Calcium Phosphorus Magnesium Albumin 01/09/21 01/09/21 01/09/21 01:08 02:06 03:02 WBC RBC Hgb Hct MCV MCH MCHC RDW Plt Count MPV Immature Gran % (Auto) Neut % (Auto) Lymph % (Auto) [place] % (Auto) Eos % (Auto) Baso % (Auto) Lymph # (Auto) [place] # (Auto) Eos # (Auto) Baso # (Auto) Abs Immat Gran (auto) Absolute Neuts (auto) Absolute Nucleated RBC Nucleated RBC % (auto) VBG pH VBG pCO2 VBG pO2 VBG HCO3 VBG O2 Saturation VBG Base Excess Sodium Potassium Chloride Carbon Dioxide Anion Gap BUN Creatinine Estim Creat Clear Calc Estimated GFR POC Glucose 170 H 144 H 129 H Random Glucose Calcium Phosphorus Magnesium Albumin 01/09/21 01/09/21 01/09/21 04:03 05:00 05:07 WBC 7.1 RBC 2.79 L Hgb 7.6 L Hct 23.6 L MCV 84.6 MCH 27.2 MCHC 32.2 RDW 14.6 Plt Count 141 L MPV 12.6 H Immature Gran % (Auto) 0.8 H Neut % (Auto) 85.2 H Lymph % (Auto) 8.6 L [place] % (Auto) 5.4 Eos % (Auto) 0.0 Baso % (Auto) 0.0 Lymph # (Auto) 0.6 L [place] # (Auto) 0.4 Eos # (Auto) 0.0 Baso # (Auto) 0.0 Abs Immat Gran (auto) 0.06 H Absolute Neuts (auto) 6.0 Absolute Nucleated RBC 0.020 H Nucleated RBC % (auto) 0.3 H VBG pH VBG pCO2 VBG pO2 VBG HCO3 VBG O2 Saturation VBG Base Excess Sodium Potassium Chloride Carbon Dioxide Anion Gap BUN Creatinine Estim Creat Clear Calc Estimated GFR POC Glucose 125 H 139 H Random Glucose Calcium Phosphorus Magnesium Albumin 01/09/21 01/09/21 01/09/21 05:07 05:09 05:58 WBC RBC Hgb Hct MCV MCH MCHC RDW Plt Count MPV Immature Gran % (Auto) Neut % (Auto) Lymph % (Auto) [place] % (Auto) Eos % (Auto) Baso % (Auto) Lymph # (Auto) [place] # (Auto) Eos # (Auto) Baso # (Auto) Abs Immat Gran (auto) Absolute Neuts (auto) Absolute Nucleated RBC Nucleated RBC % (auto) VBG pH 7.39 VBG pCO2 34 VBG pO2 53 VBG HCO3 20 L VBG O2 Saturation 79.0 VBG Base Excess -3.3 Sodium 142 Potassium 4.4 Chloride 111 H Carbon Dioxide 22 Anion Gap 13 BUN 71 H Creatinine 3.01 H Estim Creat Clear Calc 44.7 Estimated GFR 23 POC Glucose 127 H Random Glucose 148 H Calcium 8.2 L Phosphorus 5.2 H Magnesium 2.3 Albumin 3.1 L D 01/09/21 01/09/21 07:20 08:14 WBC RBC Hgb Hct MCV MCH MCHC RDW Plt Count MPV Immature Gran % (Auto) Neut % (Auto) Lymph % (Auto) [place] % (Auto) Eos % (Auto) Baso % (Auto) Lymph # (Auto) [place] # (Auto) Eos # (Auto) Baso # (Auto) Abs Immat Gran (auto) Absolute Neuts (auto) Absolute Nucleated RBC Nucleated RBC % (auto) VBG pH VBG pCO2 VBG pO2 VBG HCO3 VBG O2 Saturation VBG Base Excess Sodium Potassium Chloride Carbon Dioxide Anion Gap BUN Creatinine Estim Creat Clear Calc Estimated GFR POC Glucose 160 H 153 H Random Glucose Calcium Phosphorus Magnesium Albumin Microbiology Microbiology Results: Microbiology 01/07/21 05:25 Blood - Venous Blood Culture - Preliminary No growth after 48 hours. 01/07/21 05:18 Blood - Venous Blood Culture - Preliminary No growth after 48 hours. Quality Stroke Does the patient have a stroke diagnosis?: No VTE Prior VTE?: No VTE Risk Level:: Medical - moderate - high VTE Device Contraindication: Treatment Not Indicated VTE Drug Contraindication: N/A - Med Ordered Critical Care Time Critical Care Time (minutes): 120
[2021-01-09] MEDS: Cholecalciferol (Vitamin D3) 25 MCG TABLET 50 MCG OG-TUBE (10:45)
[2021-01-09 10:47] LABS: VBG HCO3 21 mmol/L (22-26); VBG pCO2 36 mmHg; VBG pH 7.37 (7.32-7.43); VBG pO2 57 mmHg
[2021-01-09 10:51] LABS: Hematocrit 25.3 % (42-52); Hemoglobin 8.1 g/dl (14.0-18.0)
[2021-01-09] MEDS: LORazepam 2 MG/ML VIAL IVPUSH (10:52)
[2021-01-09] MEDS: Sodium Zirconium Cyclosilicate 10 GM POWD.PACK OG-TUBE ×3 (10:52→20:36)
[2021-01-09] MEDS: dexmedeTOMIDidine HCL/NS 400 MCG/100 ML INFUS..BTL 33.05 MCG IVCONT (10:52)
[2021-01-09] MEDS: QUEtiapine Fumarate 50 MG TABLET G-TUBE (11:08)
[2021-01-09 11:10] LABS: Lactic Acid 0.9 mmol/L (0.5-2.0)
[2021-01-09 11:46] LABS: Venous Blood Gas Refer to POC result
[2021-01-09 12:04] LABS: Glucose, Whole Blood 197 mg/dL (60-115)
--- NOTE | 2021-01-09 13:21 | P.CONNP_ITS ---
History of Present Illness Reason for Consult Consult date: 01/09/21 Chief Complaint Chief complaint: Acute hypoxic respiratory failure Review of Systems Review of Systems Constitutional : No Weight loss, No Fever, No Chills, No Night Sweats, No Fatigue, No Malaise ENT/Mouth : No Hearing loss, No Ear Pain, No Nasal Congestion, No Sinus Pain, No Hoarseness, No sore throat, No Rhinorrhea, No Swallowing Difficulty Eyes: No Eye Pain, No Swelling, No Redness, No Foreign Body, No Discharge, No Vision Changes Cardiovascular : No Chest Pain, No SOB, No Dyspnea on Exertion, No Orthopnea, No Edema, No Palpitations Respiratory : Complaining of moderate to severe shortness of breath, wheezing Gastrointestinal : No Nausea, No Vomiting, No Diarrhea, No Constipation, No abdominal Pain, No Hematochezia, No Melena Genitourinary : no irregular bleeding, No Dysuria, No Urinary Frequency, No Hematuria, No Urinary Incontinence, No Urgency, No Flank Pain, No Urinary Flow Changes, No Hesitancy Musculoskeletal : No joint pain, No Myalgias, No Joint Swelling Skin : No Skin Lesions, No rash Neuro : No Weakness, No Numbness, No Paresthesias, No Loss of Consciousness, No Dizziness, No Headache Psych : No Anxiety/Panic, No Depression, No SI/HI/AH/VH, No Social Issues, Heme/Lymph: No Bruising, No Bleeding,No Lymphadenopathy Endocrine : No Polyuria, No Polydipsia, No Temperature Intolerance Constitutional: Denies daytime sleepiness, Denies excessive sweating, Denies fatigue, Denies fever(s), Denies lethargy, Denies malaise, Denies night sweats, Denies snoring and Denies weight loss Eyes: Denies blurry vision and Denies itchy eyes Denies nasal congestion, Denies post nasal drip, Denies sinus pain, Denies sinus pressure and Denies other ( Thrush) Cardiovascular: Denies chest pain, Denies pedal edema, Reports dyspnea, Denies orthopnea and Denies paroxysmal nocturnal dyspnea Respiratory: Denies cough, Denies hemoptysis, Denies excessive phlegm productio n, Reports dyspnea, Denies snoring and Denies wheezing Gastrointestinal: Reports abdominal pain and Denies heartburn Musculoskeletal: Denies myalgias, Denies arthralgias and Denies joint swelling Skin/Breast: Denies rash Denies memory loss and Denies seizure-like activity Psychiatric: Denies abnormal sleep pattern, Denies anxiety and Denies memory loss Endocrine: Denies excessive sweating, Denies fatigue and Denies heat intolerance Hematologic/Lymphatic: Denies easy bruising Allergic/Immunologic: Denies itchy eyes, Denies seasonal rhinorrhea and Denies wheezing PMFSH Past Medical History Medical History Amputated below knee Chronic kidney disease (CKD), stage III (moderate) Cirrhosis Diabetes Hepatitis C, chronic Hypertension Opiate abuse, episodic Surgical History Surgical History History of shoulder surgery Social History Social History Household Members: Significant Other, Family and Children Housing: Apartment Do you presently have visiting nurse or other home services: Yes ([employer] every day) Alcohol intake: unknown Patient Tobacco Use Status: Never used Tobacco e-Cigarette/Vaping Use: Never Used Use of substances other than those prescribed or required for medical reasons: No Substance Use Type: Opiates Currently Displaying Signs/Symptoms of Drug Intoxication Withdrawal: No Other Past Substance Use Problem:: opiate abuse Have you been hit, kicked, punched, or otherwise hurt by someone within the past year? If so, by whom?: No Do you feel safe in your current relationship?: Yes Is there a partner from a previous relationship who is making you feel unsafe now?: No Are you made to feel afraid or neglected: No Spiritual Healthcare Practices: No Hinduism Healthcare Practices: No Cultural Healthcare Practices: No Advance Directives: No Advance Directives Information Provided: No Advance Directives Date on File: 01/01/21 Do you have thoughts of harming others: None Do you have a plan to hurt others: No Plan Recently lost weight without trying: Yes How much weight loss: Unsure Eating poorly because of decreased appetite: Yes Nutrition screen score: 5 Nutrition Risks: Poor intake 0-25% >4 days service: No Current occupational status: disabled Meds Allergies Allergy/AdvReac Type Severity Reaction Status Date / Time clindamycin [CLINDAMYCIN] Allergy Intermediate RASH ALL Verified 01/01/21 13:05 OVER SKIN ON BACK daptomycin [DAPTOMYCIN] Allergy Mild UNKNOWN Verified 01/01/21 13:05 doxycycline [DOXYCYCLINE] Allergy Mild HIVES Verified 01/01/21 13:05 vancomycin [VANCOMYCIN] Allergy Mild UNKNOWN Verified 01/01/21 13:05 amoxicillin Allergy Unknown Unknown Verified 01/01/21 13:05 cephalexin [From Keflex] Allergy Unknown HIVES Verified 01/01/21 13:05 penicillin V Allergy Unknown Unknown Verified 01/01/21 13:05 Sulfa (Sulfonamide Allergy Unknown Unknown Verified 01/01/21 13:05 Antibiotics) sulfamethoxazole Allergy Unknown HIVES Verified 01/01/21 13:05 [From Bactrim] trimethoprim [From Bactrim] Allergy Unknown HIVES Verified 01/01/21 13:05 Active Medications: Current Medications Generic Name Dose Route Start Last Admin Trade Name Freq PRN Reason Stop Dose Admin Chlorhexidine Gluconate 15 ml 01/08/21 15:00 01/09/21 08:10 Chlorhexidine Gluc Oral Rinse 15 Ml Mouthwash BUCCAL 15 ml TID DELMA Administration Cisatracurium Besylate 10 mg 01/08/21 13:51 01/08/21 14:41 Cisatracurium Besylate 20 Mg/10 Ml Vial IVPUSH 10 mg Q4H PRN Administration Ventilator synchrony Dexmedetomidine HCl 40 mcg 01/09/21 10:51 01/09/21 11:08 Dexmedetomididine Hcl 80 Mcg/20 Ml Vial IV 40 mcg Q1H PRN Administration agitation Fentanyl 100 mcg 01/09/21 10:23 01/09/21 13:16 Fentanyl Citrate/Pf 100 Mcg/2 Ml Vial IVPUSH 100 mcg Q5M PRN Administration Pain, Moderate (Pain Scale 4-6 Heparin Sodium (Porcine) 5,000 unit 01/09/21 12:00 01/09/21 11:46 Heparin Sodium,Porcine 5,000 Unit/Ml Vial SUBCUT 5,000 unit Q8H DELMA Administration Insulin Human Regular 100 unit in 100 mls @ 0 mls/hr 01/07/21 11:15 01/09/21 11:50 Myxredlin IVCONT 3 unit/hr .Q0M DELMA 3 mls/hr Titration Protocol Per Protocol Dexmedetomidine HCl 400 mcg in 100 mls @ 0 mls/hr 01/08/21 12:15 01/09/21 11:10 Precedex IVCONT 0 mcg/kg/hr .Q0M DELMA 0 mls/hr Titration Protocol Per Protocol Propofol 1,000 mg in 100 mls @ 0 mls/hr 01/08/21 14:00 01/09/21 12:27 Diprivan IVCONT 50 mcg/kg/min .Q0M DELMA 39.66 mls/hr Administration Protocol Per Protocol Fentanyl 1,000 mcg in 100 mls @ 0 mls/hr 01/08/21 14:00 01/09/21 12:09 Sublimaze/Ns IVCONT 200 mcg/hr .Q0M DELMA 20 mls/hr Administration Protocol Per Protocol Cisatracurium Besylate 100 mg/ 50 mls @ 7.932 mls/hr 01/08/21 14:30 01/09/21 09:58 IV Miscellaneous Supplies IVCONT 0 mcg/kg/min .Q6H19M DELMA 0 mls/hr Infusion 2 MCG/KG/MIN Ivermectin 30 mg 01/09/21 11:00 01/09/21 11:47 Ivermectin 3 Mg Tablet OG-TUBE 01/13/21 09:01 30 mg DAILY DELMA Administration Lorazepam 2 mg 01/09/21 10:51 01/09/21 10:52 Lorazepam 2 Mg/Ml Vial IVPUSH 2 mg Q4H PRN Administration Anxiety Methylprednisolone Sodium Succinate 80 mg 01/09/21 09:00 01/09/21 08:10 Methylprednisolone Sod Succ 125 Mg/2 Ml Vial IVPUSH 80 mg Q12H DELMA Administration Omeprazole 40 mg 01/10/21 06:30 Omeprazole 20 Mg/10 Ml Susp.Recon G-TUBE DAILY@0630 DELMA Quetiapine Fumarate 50 mg 01/09/21 21:00 Quetiapine Fumarate 50 Mg Tablet PO BID DELMA Sodium Zirconium Cyclosilicate 10 gm 01/09/21 10:30 01/09/21 10:52 Sodium Zirconium Cyclosilicate 10 Gm Powd.Pack OG-TUBE 01/10/21 21:01 10 gm TID DELMA Administration Thiamine HCl 200 mg 01/09/21 21:00 Thiamine Hcl 200 Mg/2 Ml Vial IVPUSH BID DELMA Vitamin D 50 mcg 01/09/21 10:00 01/09/21 10:45 Cholecalciferol (Vitamin D3) 25 Mcg Tablet OG-TUBE 50 mcg DAILY DELMA Administration Home Medications Medication Instructions Recorded Confirmed Last Taken Type oxycodone 40 mg PO Q4H PRN 06/08/20 01/09/21 01/01/21 History aspirin 1 tab PO DAILY 01/01/21 01/09/21 01/01/21 History clopidogrel 1 tab PO DAILY 01/01/21 01/09/21 01/01/21 History hydralazine 25 mg PO TID 01/01/21 01/09/21 01/01/21 History hydromorphone 1 tab PO BEDTIME PRN 01/01/21 01/09/21 Unknown History metoprolol succinate 100 mg PO DAILY 01/01/21 01/09/21 01/01/21 History Humalog KwikPen Insulin 60 units SUBCUT TID 01/02/21 01/09/21 Unknown History insulin glargine U-300 conc 160 unit SUBCUT QAM 01/07/21 01/09/21 Unknown History [Toujeo SoloStar U-300 Insulin] Physical Exam Vital Signs: Last Vital Signs Temp 97.2 F 01/09/21 12:00 Pulse 74 01/09/21 12:00 Resp 18 01/09/21 12:00 BP 160/78 H 01/09/21 12:00 Pulse Ox 87 L 01/09/21 12:00 Oxygen Flow Rate 100 01/07/21 05:11 Body Mass Index 41.4 Const General: no acute distress, alert, awake and anxious Nutritional Appearance: obese Eyes Sclerae: sclerae normal EOM: EOMs intact bilaterally Neck Neck: Yes no lymphadenopathy, Yes trachea midline and Yes supple Resp Effort & Inspection: normal respiratory effort and no respiratory distress ( On high-flow nasal cannula and non-rebreather) Auscultation: crackles ( diffuse bilateral) Cardio Rate: tachycardic Rhythm: regular rhythm Heart sounds: no gallops, no murmurs and no rubs GI Palpation (GI): Soft to palpation and Other GI palpation findings present ( Non tender) Auscultation: normal bowel sounds Extrem General: No clubbing, No cyanosis and Yes other ( bilateral BKA) Results Lab Results Result Diagrams: 01/09/21 10:37 01/09/21 05:07 Lab results: Chemistry 01/07/21 01/07/21 01/07/21 05:17 09:36 19:06 Sodium 131 L 131 L 134 L Potassium 5.2 H 5.1 4.7 Carbon Dioxide 13 L 10 L* D 17 L BUN 68 H 69 H 71 H Creatinine 3.17 H 3.48 H 3.32 H Calcium 7.9 L 7.5 L 8.0 L D Phosphorus 01/08/21 01/09/21 05:20 05:07 Sodium 138 142 Potassium 4.7 4.4 Carbon Dioxide 20 L 22 BUN 73 H 71 H Creatinine 3.15 H 3.01 H Calcium 7.9 L 8.2 L Phosphorus 4.5 5.2 H Hematology 01/07/21 01/08/21 01/09/21 05:21 05:20 05:07 WBC 13.1 H 9.9 7.1 Hgb 10.4 L 8.8 L 7.6 L Plt Count 184 D 141 L 141 L 01/09/21 10:37 WBC Hgb 8.1 L Plt Count Assessment and Plan (1) Acute respiratory distress syndrome (ARDS) due to COVID-19 virus: Status: Acute Assessment: 45-year-old gentleman with multiple medical issues admitted with acute hypoxic respiratory failure secondary to COVID-19 ARDS further complicated by acute on chronic renal failure on the background of peripheral vascular disease and hepatitis-C cirrhosis. we are asked to see for KIRILL and CKD he has acute COVID pneumonia he is followed by Dr Hdz baseline cr 2.6 longstanding uncontrolled diabetes, uncontrolled hypertension, status post right BKA, left AKA, osteomyelitis right shoulder [place] [facility] [place], dysarthria, left upper extremity weakness. MRI with multiple acute right MCA infarcts, MRA head and neck, no major neck artery stenosis, but had multiple intracerebral stenosis. Plan: i suspect he has COVID related KIRILL his creat is improved but not to baseline we will follow closely Neuro: No acute issues. Underlying history of CVA, previously on dual antiplatelet therapy, now held secondary to recent GI bleed. Cardiac: No acute issues. Underlying history of hypertension. Pulmonary: Acute hypoxic respiratory failure secondary to COVID-19 ARDS now requiring high-flow nasal cannula and non-rebreather to. Continue to titrate off as tolerated. Continue with dexamethasone. Renal: Acute on chronic renal failure , likely multifactorial, improving. Non oliguric. Continue to monitor renal indices and urine output. Endo: Hyperglycemia without diabetic ketoacidosis. Continue insulin drip. GI: Underlying history of colonic mass versus spasm, initially with worsening lactic acidosis and concern for bowel ischemia. CT abdomen pelvis with p.o. contrast with no evidence of colitis or mass. ID: [id number]. Continues on dexamethasone. Heme/Onc: No acute issues. Psych: No acute issues. Miscellaneous: No acute issues. Prophylaxis: Heparin, ppi Diet: diabetic Critical care time spent: 60 minutes (2) Acute on chronic kidney failure: Status: Acute (3) Acute respiratory failure with hypoxia: Status: Acute (4) Hepatitis C, chronic: Status: Acute (5) Cirrhosis: Status: Acute (6) Diabetes: Status: Acute (7) Hypertension: Status: Acute Procedures Date of Service Date of Service: 01/09/21
[2021-01-09 16:20] LABS: Glucose, Whole Blood 207 mg/dL (60-115)
[2021-01-09 18:01] LABS: Glucose, Whole Blood 198 mg/dL (60-115)
[2021-01-09 19:45] LABS: Glucose, Whole Blood 191 mg/dL (60-115)
[2021-01-09] MEDS: Thiamine HCL 200 MG/2 ML VIAL IVPUSH (20:36)
[2021-01-09] MEDS: QUEtiapine Fumarate 50 MG TABLET PO (20:36)
[2021-01-09 21:28] LABS: Glucose, Whole Blood 156 mg/dL (60-115)
[2021-01-09 21:41] LABS: Glucose Urine UA 100 MG/DL (NEG); Leukocyte Esterase Urine NEG (NEG); Nitrite Urine NEG (NEG); Urine Blood 1+ (NEG); Urine Ketones NEG (NEG); Urine Protein 3+ MG/DL (NEG-TRACE)
[2021-01-09 21:42] LABS: Appearance Urine CLEAR; Color Urine YELLOW
[2021-01-09 22:06] LABS: Amorphous Sediment Urine 1+ /LPF; Bacteria Urine TRACE /LPF; Squamous Epithelial Cell Urine TRACE /LPF
[2021-01-09 22:17] LABS: Glucose, Whole Blood 165 mg/dL (60-115)
[2021-01-09 23:12] LABS: Glucose, Whole Blood 159 mg/dL (60-115)
[2021-01-10] VITALS (31 sets, daily range): BP systolic 145–190; BP diastolic 63–87; PULSE 73–89; RESP 14–28; TEMP 36.9–37.4; O2SAT 88–98
[2021-01-10 00:12] LABS: Glucose, Whole Blood 155 mg/dL (60-115)
[2021-01-10] MEDS: propofoL 1,000 MG/100 ML VIAL 39.66 MG IVCONT ×4 (00:24→07:55)
[2021-01-10 01:21] LABS: Glucose, Whole Blood 136 mg/dL (60-115)
[2021-01-10] MEDS: Albumin Human 25 % 100 ML IV (01:58)
[2021-01-10 02:01] LABS: Glucose, Whole Blood 100 mg/dL (60-115)
[2021-01-10] MEDS: fentaNYL citrate/NS 1,000 MCG/100 ML PLAST..BAG 20 MCG IVCONT ×5 (03:04→22:57)
[2021-01-10] MEDS: LORazepam 2 MG/ML VIAL IVPUSH ×2 (04:04→16:42)
[2021-01-10] MEDS: Heparin Sodium,Porcine 5,000 UNIT/ML VIAL 5000 UNIT SUBCUT ×3 (04:07→20:05)
[2021-01-10 04:24] LABS: Glucose, Whole Blood 193 mg/dL (60-115)
[2021-01-10 05:32] LABS: Glucose, Whole Blood 191 mg/dL (60-115)
[2021-01-10 05:52] LABS: MANUAL DIFF FLAG NO
[2021-01-10 05:54] LABS: Hematocrit 23.2 % (42-52); Hemoglobin 7.4 g/dl (14.0-18.0); Imm Gran Abs Auto 0.14 X10*3/uL (0.00-0.03); Lymphocytes Absolute Auto 0.4 X10*3/uL (1.2-4.9); Lymphocytes Percent Auto 5.7 % (20-40); Mean Corpuscular HGB Conc 31.9 g/dl (31.0-36.0); Mean Corpuscular Hemoglobin 27.7 pg (27.0-33.0); Mean Corpuscular Volume 86.9 fL (80-98); Mean Platelet Volume 12.6 fL (9.4-12.4); Monocytes Absolute Auto 0.4 X10*3/uL (0.1-1.2); Monocytes Percent Auto 5.2 % (2-11); Neutrophils Absolute Auto 6.2 X10*3/uL (2.0-8.3); Neutrophils Percent Auto 87.1 % (45-73); Platelet Count 142 X10*3/uL (160-400); Red Blood Count 2.67 X10*6/uL (4.60-5.80); Red Cell Distribution Width 14.9 % (11.0-16.0); White Blood Count 7.2 X10*3/uL (4.8-10.8)
[2021-01-10 05:57] LABS: VBG HCO3 20 mmol/L (22-26); VBG pCO2 36 mmHg; VBG pH 7.34 (7.32-7.43); VBG pO2 59 mmHg
[2021-01-10 06:14] LABS: Venous Blood Gas Refer to POC result
[2021-01-10 06:18] LABS: Alanine Aminotransferase 12 U/L (0-40); Albumin Level 3.2 g/dL (3.5-5.0); Alkaline Phosphatase 96 U/L (39-117); Anion Gap 17 (12-20); Aspartate Amino Transferase 17 U/L (5-37); Bilirubin Total 0.5 mg/dL (0.0-1.0); Blood Urea Nitrogen 66 mg/dL (9-16); C Reactive Protein 4.81 mg/dL (< or = 0.50); Calcium 8.2 mg/dL (8.4-10.2); Carbon Dioxide 19 mmol/L (22-29); Chloride 113 mmol/L (96-108); Creatinine Clr Calc Pharmacy 51.2; Estimated Glomerular Filt Rate 25; Glucose Random 225 mg/dL (60-115); Potassium 4.7 mmol/L (3.3-5.1); Sodium 144 mmol/L (135-145); Total Protein 5.8 g/dL (6.5-8.0)
[2021-01-10 06:23] LABS: Glucose, Whole Blood 198 mg/dL (60-115)
[2021-01-10 07:08] LABS: Glucose, Whole Blood 180 mg/dL (60-115)
--- NOTE | 2021-01-10 07:09 | PC.NURSE ---
Patient sedated on Propofol, and Fentanyl , woke easily on sedation. Oxygen sats decreased several times throughout night , respiratory titrated as needed. Patient requiring 100% fiO2 at present. Vent settings 16/520/ 100/ peep 11. NSR with BBB on telemetry. Urine output approx 100-200 ml /hr. VSS, Skin intact, restraints in place. Repositioned every 2 hours.
[2021-01-10 07:29] LABS: Ferritin 169 ng/mL (20-250)
[2021-01-10 07:36] LABS: Procalcitonin 0.28 ng/mL
[2021-01-10] MEDS: Chlorhexidine Gluc Oral Rinse 15 ML MOUTHWASH BUCCAL ×3 (07:37→20:04)
[2021-01-10] MEDS: methylPREDNISolone Sod Succ 125 MG/2 ML VIAL 80 MG IVPUSH ×2 (07:37→20:04)
[2021-01-10] MEDS: Sodium Zirconium Cyclosilicate 10 GM POWD.PACK OG-TUBE ×3 (07:37→20:05)
[2021-01-10] MEDS: Cholecalciferol (Vitamin D3) 25 MCG TABLET 50 MCG OG-TUBE (07:38)
[2021-01-10] MEDS: Thiamine HCL 200 MG/2 ML VIAL IVPUSH ×2 (07:38→20:04)
[2021-01-10] MEDS: QUEtiapine Fumarate 50 MG TABLET PO ×2 (07:38→20:05)
--- NOTE | 2021-01-10 09:47 | PM.PNNEP ---
Subjective Subjective Date of Service: 01/10/21 Interval history: Mr. Preciado was admitted to ICU on January 07the with acute respiratory failure 2? COVID ARDS, hyperglycemia, KIRILL, and metabolic acidosis. 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 The patient had the [employer] COVID vaccine on October 24. Reportedly lives at home with his HISTORY OF PRESENT ILLNESS: The patient recently returned from a trip to [place] and came to our ED on January 01 with 2 days of cough, chest congestion, and wheezing. Multiple family members had similar symptoms. Additionally, he reported bilateral lower abdominal pain and small amounts of bright red blood per rectum for the prior 2 weeks. In the ED, he tested positive for COVID-19. Sat was 97% on RA. Hemoglobin was noted to be 9.8 compared to a baseline of around 11-12. DDimer and CRP were only mildly elevated. CXR showed NAD. CT of the abdomen and pelvis without contrast showed a 4.5 cm segment of distal transverse colon with circumferential wall thickening and luminal narrowing that could represent either spasm or colonic mass; there was also a masslike density near the ileocecal valve. Also demonstrated were splenomegaly and small upper abdominal varices but no ascites. The lung bases (my reading) showed a few questionable areas of ground-glass opacities. He was admitted and treated with steroids for asthma exaccerebation. He wheezing resolved. DAPT for his stroke was held and his Hb was stable and he had no bleeding. Bec of his COVID status, GI workup was deferred, as was GI f/u and treatment for his Hep C. His hematochezia was thought very possibly due to hemorrhoids found on exam. He was discharged home on January 04. On January 07 he represented to the ED in moderate respiratory distress. SpO2 was low 70s on room air, 88% on O2 FM, mid-80?s on CPAP, and 94% on HFNC 100%. Labs were notable for WBC 13, Hb 10.4, BUN/creat were 68/3.1 (from 53/3/0 on 01/04), Bicarb was 13, K was 5.2, gluc was 546, lactate was 3.2, alb was 2.2. Acetone was negative. DDimer was bumped to 1581 (from 506 on 01/03), CRP was up to 14. ABG (on ?100% FiO2) showed 7.32/19/88/-13. CXR showed patchy multifocal opacities in both lungs, c/w COVID. CT abdomen done for f/u of prev CT and bec of lactic acidosis showed the same two equivocal findings in the colon, one at the ileocecal valve region and one in the distal transverse colon ?which require further assessment in the setting of GI bleeding to exclude underlying malignancy.? Hepatic cirrhosis with portal venous hypertension as evidenced by splenomegaly and small upper abdominal varices was again demonstrated, w no significant ascites. The lung cuts showed severe bilat patchy opacities suggestive of infectious/inflammatory process. The patient was admitted to ICU. He was treated with dexamethasone, a bicarb drip, and insulin drip. U/o and renal fxn improved slightly. However oxygenation deteriorated, and he required tracheal intubation yesterday, along with NMB. This morning, he was still paralyzed on a Nimbex drip. Sat was up to 93% on FiO2 60%/+10. We turned the Nimbex off. Later in the morning, on propofol 50ug, fent 200ug, and insulin 2u/hr, HR was 85, BP 178/83. On AC 12/520/60%//+10, RR was 22, Ve 11.4L, PIP 23cm, ETCO2 27mm, Sat 84%. CVBG on that setting showed 7.37/36/-3. We got him better sedated with Ativan and Precedex, and ultimately the Sat to 90% on 60%/+10. He?s been afebrile thruout. PER about 3-4mm. No JVD at 30?. Chest with distant BS. CTA, with normal exp phase. RRR, normal S1 and S2, no M or G. Abdomen benign, with normal BS. No edema. According to the nurse, the patient did have some red flecks of blood in his stool overnite. LABORATORY DATA: As below. Notably, Hb down to 7.6 from 8.8 yesterday, 10.4 the day before. BUN/creat 71/3.0 (73/3.1 yest). Alb 3.1 (1.9 yest). [facility]OCARDIOGRAM done by [facility] and interpreted by me at the bedside: 1. Moderate LVH 2. Normal LV cavity size and fxn. EF 50-60%. No RWMAs. 3. Normal RV size 4. No significant TR, with normal RVSP. 5. IVC measured 2.3cm with no insp collapse. IMPRESSION: 45 yo M with underlyingmorbid obesity, DM2, HTN, CKD3, MCA territory CVA Feb ?21 w no deficit, PVD s/p bilat BKA w chronic phantom limb pain, HCV w cirrhosis, asthma. The patient had the [employer] COVID vaccine on October 24. multiple medical issues admitted with acute hypoxic respiratory failure secondary to COVID-19 ARDS further complicated by acute on chronic renal failure on the background of peripheral vascular disease and hepatitis-C cirrhosis. we are asked to see for KIRILL and CKD he has acute COVID pneumonia he is followed by Dr Hdz baseline cr 2.6 longstanding uncontrolled diabetes, uncontrolled hypertension, status post right BKA, left AKA, osteomyelitis right shoulder presented recently to [facility] [place] with headache, dysarthria, left upper extremity weakness. MRI with multiple acute right MCA infarcts, MRA head and neck, no major neck artery stenosis, but had multiple intracerebral stenosis. creat same at 2.7 urine protein and FLC assay ordered when recovered consider ILIANA and get a MRA Plan: i suspect he has COVID related KIRILL his creat is improved but not to baseline 1. Bilat pulmon infiltrates 2? COVID pneumonia. 2. ARDS 2? above. 3. Hypoxemic respiratory failure. . 4. Acute on chronic kidney injury. Likely 2? COVID. Physical Exam Vital Signs: Vital Signs: Last Vital Signs Temp 99.0 F 01/10/21 09:00 Pulse 79 01/10/21 09:00 Resp 19 01/10/21 09:00 BP 176/71 H 01/10/21 09:00 Pulse Ox 93 01/10/21 09:00 Oxygen Flow Rate 100 01/07/21 05:11 Body Mass Index 41.4 Const: General: no acute distress, alert, awake and anxious Nutritional Appearance: obese Eyes: Sclerae: sclerae normal EOM: EOMs intact bilaterally Neck: Neck: Yes no lymphadenopathy, Yes trachea midline and Yes supple Resp: Effort & Inspection: normal respiratory effort and no respiratory distress ( On high-flow nasal cannula and non-rebreather) Auscultation: crackles ( diffuse bilateral) Cardio: Rate: tachycardic Rhythm: regular rhythm Heart sounds: no gallops, no murmurs and no rubs GI: Palpation (GI): Soft to palpation and Other GI palpation findings present ( Nontender) Auscultation: normal bowel sounds Extrem: General: No clubbing, No cyanosis and Yes other ( bilateral BKA) Objective Data Labs CBC & Chem 7: 01/10/21 05:20 01/10/21 05:20 Labs: Laboratory Results - last 24 hr 01/09/21 01/09/21 01/09/21 10:37 10:37 10:37 WBC RBC Hgb 8.1 L Hct 25.3 L MCV MCH MCHC RDW Plt Count MPV Immature Gran % (Auto) Neut % (Auto) Lymph % (Auto) [place] % (Auto) Eos % (Auto) Baso % (Auto) Lymph # (Auto) [place] # (Auto) Eos # (Auto) Baso # (Auto) Abs Immat Gran (auto) Absolute Neuts (auto) Absolute Nucleated RBC Nucleated RBC % (auto) VBG pH VBG pCO2 VBG pO2 VBG HCO3 VBG O2 Saturation VBG Base Excess Sodium Potassium Chloride Carbon Dioxide Anion Gap BUN Creatinine Estim Creat Clear Calc Estimated GFR POC Glucose Random Glucose Lactic Acid 0.9 Calcium Ferritin Total Bilirubin AST ALT Alkaline Phosphatase C-Reactive Protein Total Protein Albumin Procalcitonin Urine Color Urine Appearance Urine pH Ur Specific [place] Urine Protein Urine Glucose (UA) Urine Ketones Urine Blood Urine Nitrite Ur Leukocyte Esterase Urine RBC Urine WBC Ur Squamous Epith Cells Amorphous Sediment Urine Bacteria Ur Random Sodium Blood Type A Positive Antibody Screen NEGATIVE 01/09/21 01/09/21 01/09/21 10:40 11:45 15:03 WBC RBC Hgb Hct MCV MCH MCHC RDW Plt Count MPV Immature Gran % (Auto) Neut % (Auto) Lymph % (Auto) [place] % (Auto) Eos % (Auto) Baso % (Auto) Lymph # (Auto) [place] # (Auto) Eos # (Auto) Baso # (Auto) Abs Immat Gran (auto) Absolute Neuts (auto) Absolute Nucleated RBC Nucleated RBC % (auto) VBG pH 7.37 VBG pCO2 36 VBG pO2 57 VBG HCO3 21 L VBG O2 Saturation 81.0 VBG Base Excess -3.0 Sodium Potassium Chloride Carbon Dioxide Anion Gap BUN Creatinine Estim Creat Clear Calc Estimated GFR POC Glucose 197 H 207 H Random Glucose Lactic Acid Calcium Ferritin Total Bilirubin AST ALT Alkaline Phosphatase C-Reactive Protein Total Protein Albumin Procalcitonin Urine Color Urine Appearance Urine pH Ur Specific [place] Urine Protein Urine Glucose (UA) Urine Ketones Urine Blood Urine Nitrite Ur Leukocyte Esterase Urine RBC Urine WBC Ur Squamous Epith Cells Amorphous Sediment Urine Bacteria Ur Random Sodium Blood Type Antibody Screen 01/09/21 01/09/21 01/09/21 17:46 19:36 20:45 WBC RBC Hgb Hct MCV MCH MCHC RDW Plt Count MPV Immature Gran % (Auto) Neut % (Auto) Lymph % (Auto) [place] % (Auto) Eos % (Auto) Baso % (Auto) Lymph # (Auto) [place] # (Auto) Eos # (Auto) Baso # (Auto) Abs Immat Gran (auto) Absolute Neuts (auto) Absolute Nucleated RBC Nucleated RBC % (auto) VBG pH VBG pCO2 VBG pO2 VBG HCO3 VBG O2 Saturation VBG Base Excess Sodium Potassium Chloride Carbon Dioxide Anion Gap BUN Creatinine Estim Creat Clear Calc Estimated GFR POC Glucose 198 H 191 H 156 H Random Glucose Lactic Acid Calcium Ferritin Total Bilirubin AST ALT Alkaline Phosphatase C-Reactive Protein Total Protein Albumin Procalcitonin Urine Color Urine Appearance Urine pH Ur Specific [place] Urine Protein Urine Glucose (UA) Urine Ketones Urine Blood Urine Nitrite Ur Leukocyte Esterase Urine RBC Urine WBC Ur Squamous Epith Cells Amorphous Sediment Urine Bacteria Ur Random Sodium Blood Type Antibody Screen 01/09/21 01/09/21 01/09/21 21:01 21:01 22:12 WBC RBC Hgb Hct MCV MCH MCHC RDW Plt Count MPV Immature Gran % (Auto) Neut % (Auto) Lymph % (Auto) [place] % (Auto) Eos % (Auto) Baso % (Auto) Lymph # (Auto) [place] # (Auto) Eos # (Auto) Baso # (Auto) Abs Immat Gran (auto) Absolute Neuts (auto) Absolute Nucleated RBC Nucleated RBC % (auto) VBG pH VBG pCO2 VBG pO2 VBG HCO3 VBG O2 Saturation VBG Base Excess Sodium Potassium Chloride Carbon Dioxide Anion Gap BUN Creatinine Estim Creat Clear Calc Estimated GFR POC Glucose 165 H Random Glucose Lactic Acid Calcium Ferritin Total Bilirubin AST ALT Alkaline Phosphatase C-Reactive Protein Total Protein Albumin Procalcitonin Urine Color YELLOW Urine Appearance CLEAR Urine pH 6.0 Ur Specific [place] 1.020 Urine Protein 3+ H Urine Glucose (UA) 100 H Urine Ketones NEG Urine Blood 1+ H Urine Nitrite NEG Ur Leukocyte Esterase NEG Urine RBC 1-4 Urine WBC 1-4 Ur Squamous Epith Cells TRACE Amorphous Sediment 1+ Urine Bacteria TRACE Ur Random Sodium 32.0 Blood Type Antibody Screen 01/09/21 01/10/21 01/10/21 23:06 00:04 01:10 WBC RBC Hgb Hct MCV MCH MCHC RDW Plt Count MPV Immature Gran % (Auto) Neut % (Auto) Lymph % (Auto) [place] % (Auto) Eos % (Auto) Baso % (Auto) Lymph # (Auto) [place] # (Auto) Eos # (Auto) Baso # (Auto) Abs Immat Gran (auto) Absolute Neuts (auto) Absolute Nucleated RBC Nucleated RBC % (auto) VBG pH VBG pCO2 VBG pO2 VBG HCO3 VBG O2 Saturation VBG Base Excess Sodium Potassium Chloride Carbon Dioxide Anion Gap BUN Creatinine Estim Creat Clear Calc Estimated GFR POC Glucose 159 H 155 H 136 H Random Glucose Lactic Acid Calcium Ferritin Total Bilirubin AST ALT Alkaline Phosphatase C-Reactive Protein Total Protein Albumin Procalcitonin Urine Color Urine Appearance Urine pH Ur Specific [place] Urine Protein Urine Glucose (UA) Urine Ketones Urine Blood Urine Nitrite Ur Leukocyte Esterase Urine RBC Urine WBC Ur Squamous Epith Cells Amorphous Sediment Urine Bacteria Ur Random Sodium Blood Type Antibody Screen 01/10/21 01/10/21 01/10/21 01:55 04:03 05:15 WBC RBC Hgb Hct MCV MCH MCHC RDW Plt Count MPV Immature Gran % (Auto) Neut % (Auto) Lymph % (Auto) [place] % (Auto) Eos % (Auto) Baso % (Auto) Lymph # (Auto) [place] # (Auto) Eos # (Auto) Baso # (Auto) Abs Immat Gran (auto) Absolute Neuts (auto) Absolute Nucleated RBC Nucleated RBC % (auto) VBG pH VBG pCO2 VBG pO2 VBG HCO3 VBG O2 Saturation VBG Base Excess Sodium Potassium Chloride Carbon Dioxide Anion Gap BUN Creatinine Estim Creat Clear Calc Estimated GFR POC Glucose 100 193 H 191 H Random Glucose Lactic Acid Calcium Ferritin Total Bilirubin AST ALT Alkaline Phosphatase C-Reactive Protein Total Protein Albumin Procalcitonin Urine Color Urine Appearance Urine pH Ur Specific [place] Urine Protein Urine Glucose (UA) Urine Ketones Urine Blood Urine Nitrite Ur Leukocyte Esterase Urine RBC Urine WBC Ur Squamous Epith Cells Amorphous Sediment Urine Bacteria Ur Random Sodium Blood Type Antibody Screen 01/10/21 01/10/21 01/10/21 05:20 05:20 05:20 WBC 7.2 RBC 2.67 L Hgb 7.4 L Hct 23.2 L MCV 86.9 MCH 27.7 MCHC 31.9 RDW 14.9 Plt Count 142 L MPV 12.6 H Immature Gran % (Auto) 2.0 H Neut % (Auto) 87.1 H Lymph % (Auto) 5.7 L [place] % (Auto) 5.2 Eos % (Auto) 0.0 Baso % (Auto) 0.0 Lymph # (Auto) 0.4 L [place] # (Auto) 0.4 Eos # (Auto) 0.0 Baso # (Auto) 0.0 Abs Immat Gran (auto) 0.14 H Absolute Neuts (auto) 6.2 Absolute Nucleated RBC 0.000 Nucleated RBC % (auto) 0.0 VBG pH VBG pCO2 VBG pO2 VBG HCO3 VBG O2 Saturation VBG Base Excess Sodium 144 Potassium 4.7 Chloride 113 H Carbon Dioxide 19 L Anion Gap 17 BUN 66 H Creatinine 2.78 H Estim Creat Clear Calc 51.2 Estimated GFR 25 POC Glucose Random Glucose 225 H D Lactic Acid Calcium 8.2 L Ferritin 169 Total Bilirubin 0.5 AST 17 D ALT 12 Alkaline Phosphatase 96 D C-Reactive Protein 4.81 H Total Protein 5.8 L Albumin 3.2 L Procalcitonin 0.28 Urine Color Urine Appearance Urine pH Ur Specific [place] Urine Protein Urine Glucose (UA) Urine Ketones Urine Blood Urine Nitrite Ur Leukocyte Esterase Urine RBC Urine WBC Ur Squamous Epith Cells Amorphous Sediment Urine Bacteria Ur Random Sodium Blood Type Antibody Screen 01/10/21 01/10/21 01/10/21 05:49 06:16 07:02 WBC RBC Hgb Hct MCV MCH MCHC RDW Plt Count MPV Immature Gran % (Auto) Neut % (Auto) Lymph % (Auto) [place] % (Auto) Eos % (Auto) Baso % (Auto) Lymph # (Auto) [place] # (Auto) Eos # (Auto) Baso # (Auto) Abs Immat Gran (auto) Absolute Neuts (auto) Absolute Nucleated RBC Nucleated RBC % (auto) VBG pH 7.34 VBG pCO2 36 VBG pO2 59 VBG HCO3 20 L VBG O2 Saturation 83.0 VBG Base Excess -5.0 Sodium Potassium Chloride Carbon Dioxide Anion Gap BUN Creatinine Estim Creat Clear Calc Estimated GFR POC Glucose 198 H 180 H Random Glucose Lactic Acid Calcium Ferritin Total Bilirubin AST ALT Alkaline Phosphatase C-Reactive Protein Total Protein Albumin Procalcitonin Urine Color Urine Appearance Urine pH Ur Specific [place] Urine Protein Urine Glucose (UA) Urine Ketones Urine Blood Urine Nitrite Ur Leukocyte Esterase Urine RBC Urine WBC Ur Squamous Epith Cells Amorphous Sediment Urine Bacteria Ur Random Sodium Blood Type Antibody Screen Microbiology Microbiology Results: Microbiology 01/09/21 21:01 Sputum - Suctioned Gram Stain - Final 01/09/21 21:01 Sputum - Suctioned Sputum Culture - Preliminary No growth to date. 01/07/21 05:25 Blood - Venous Blood Culture - Preliminary No growth after 48 hours. 01/07/21 05:18 Blood - Venous Blood Culture - Preliminary No growth after 48 hours. Assessment & Plan Assessment and plan (1) Acute respiratory distress syndrome (ARDS) due to COVID-19 virus: Status: Acute Assessment and Plan: Assessment: 45-year-old gentleman with multiple medical issues admitted with acute hypoxic respiratory failure secondary to COVID-19 ARDS further complicated by acute on chronic renal failure on the background of peripheral vascular disease and hepatitis-C cirrhosis. we are asked to see for KIRILL and CKD he has acute COVID pneumonia he is followed by Dr Hdz baseline cr 2.6 longstanding uncontrolled diabetes, uncontrolled hypertension, status post right BKA, left AKA, osteomyelitis right shoulder presented recently to [facility] [place] with headache, dysarthria, left upper extremity weakness. MRI with multiple acute right MCA infarcts, MRA head and neck, no major neck artery stenosis, but had multiple intracerebral stenosis. Plan: i suspect he has COVID related KIRILL his creat is improved but not to baseline we will follow closely Neuro: No acute issues. Underlying history of CVA, previously on dual antiplatelet therapy, now held secondary to recent GI bleed. Cardiac: No acute issues. Underlying history of hypertension. Pulmonary: Acute hypoxic respiratory failure secondary to COVID-19 ARDS now requiring high-flow nasal cannula and non-rebreather to. Continue to titrate off as tolerated. Continue with dexamethasone. Renal: Acute on chronic renal failure , likely multifactorial, improving. Non oliguric. Continue to monitor renal indices and urine output. Endo: Hyperglycemia without diabetic ketoacidosis. Continue insulin drip. GI: Underlying history of colonic mass versus spasm, initially with worsening lactic acidosis and concern for bowel ischemia. CT abdomen pelvis with p.o. contrast with no evidence of colitis or mass. ID: [id number]. Continues on dexamethasone. Heme/Onc: No acute issues. Psych: No acute issues. Miscellaneous: No acute issues. Prophylaxis: Heparin, ppi Diet: diabetic Critical care time spent: 60 minutes (2) Acute on chronic kidney failure: Status: Acute (3) Acute respiratory failure with hypoxia: Status: Acute (4) Hepatitis C, chronic: Status: Acute (5) Cirrhosis: Status: Acute (6) Diabetes: Status: Acute (7) Hypertension: Status: Acute Time Spent With Patient Time: Total time spent is greater than 50% in coordination of care (as documented) at patient's floor/unit and/or counseling patient: Procedures Date of Service Date of Service: 01/10/21 Progress Note: Quality Stroke Does the patient have a stroke diagnosis?: No
[2021-01-10] MEDS: propofoL 1,000 MG/100 ML VIAL 23.8 MG IVCONT (09:55)
--- NOTE | 2021-01-10 10:06 | MHC.CLN ---
F/U PT REMAIN INTUBATED AND SEDATED RECOMMEND GLUCERNA AT MAX GOAL RATE 30CC/HR TO PROVIDE 720KCALS (1767KCALS WITH SEDATION; 24KCALS/KG BASED ON IBW), 30G PROTEIN (.4G/KG), 614CC FREE WATER FROM FORMULA START AT 20CC/HR AND INCREASE BY 10CC Q 4 HRS UNTIL MAX GOAL IS ACHIEVED MONITOR TOLERANCE, RESIDUALS AND LYTES DISCUSSED WITH MD DURING ROUNDS
[2021-01-10] MEDS: fentaNYL citrate/PF 100 MCG/2 ML VIAL IVPUSH (10:31)
--- NOTE | 2021-01-10 10:51 | MHC.CM.PN ---
Pt remains in ICU on ventilatory support secondary to COVID. Pt has an extensive family who call ICU frequently wanting updates: Pt has a HCP on file naming his mother as primary agent - he also has a dtr Elizabeth who is on his contact list. Call placed to Nancy, pt's mother to set up twice daily phone updates. She states there are no family issues and that everyone is on speaking terms. She is in agreement to 10am and 8:30pm calls to update her on pt's progress/status. She will then give information to various family members. ICU care team aware of plan: ICU CM to call Nancy Becerra-F at 10 am. CM will follow for finalization of d/c planning. At this time, that depends on his vent status.
[2021-01-10 11:04] LABS: Glucose, Whole Blood 225 mg/dL (60-115)
[2021-01-10] MEDS: Losartan Potassium 50 MG TABLET OG-TUBE (11:14)
[2021-01-10] MEDS: Insulin Regular/NS 100 UNIT/100 ML PLAST..BAG IVCONT (11:40)
--- NOTE | 2021-01-10 12:39 | P.PNCC_ITS ---
Subjective Subjective Date of Service: 01/10/21 Interval History: Mr. Preciado was admitted to ICU on December with acute respiratory failure 2? COVID ARDS, hyperglycemia, KIRILL, and metabolic acidosis. 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 The patient had the Abhay & Abhay COVID vaccine on October 24. Reportedly lives at home with his . His mother is the HCP. HISTORY OF PRESENT ILLNESS: The patient recently returned from a trip to [place] and came to our ED on January 01 with 2 days of cough, chest congestion, and wheezing. Multiple family members had similar symptoms. Additionally, he reported bilateral lower abdominal pain and small amounts of bright red blood per rectum for the prior 2 weeks. In the ED, he tested positive for COVID-19. Sat was 97% on RA. Hemoglobin was noted to be 9.8 compared to a baseline of around 11-12. DDimer and CRP were only mildly elevated. CXR showed NAD. CT of the abdomen and pelvis without contrast showed a 4.5 cm segment of distal transverse colon with circumferential wall thickening and luminal narrowing that could represent either spasm or colonic mass; there was also a masslike density near the ileocecal valve. Also demonstrated were splenomegaly and small upper abdominal varices but no ascites. The lung were clear by my reading; the radiologist read a few questionable small areas of ground-glass opacities. He was admitted and treated with steroids for asthma exaccerebation. His wheezing resolved. DAPT for his stroke was held and his Hb was stable and he had no bleeding. His hematochezia was thought very possibly due to hemorrhoids found on exam. Bec of his COVID status, further GI workup w colonoscopy was deferred, as was GI f/u and treatment for his Hep C. He was discharged home on January 04. On January 07 he represented to the ED in moderate respiratory distress. SpO2 was low 70s on room air, 88% on O2 FM, and 94% on 100% HFNC. Labs were notable for WBC 13, Hb 10.4, BUN/creat were 68/3.1 (from 53/3/0 on 01/04), Bicarb was 13, K was 5.2, gluc was 546, lactate was 3.2, alb was 2.2. Acetone was negative. DDimer was bumped to 1581 (from 506 on 01/03), CRP was up to 14. ABG (on ?100% FiO2) showed 7.32/19/88/-13. CXR showed patchy multifocal opacities in both lungs, c/w COVID. CT abdomen done for f/u of prev CT and bec of lactic acidosis showed the same two equivocal findings in the colon, one at the ileocecal valve region and one in the distal transverse colon ?which require further assessment in the setting of GI bleeding to exclude underlying malignancy.? Hepatic cirrhosis with portal venous hypertension as evidenced by splenomegaly and small upper abdominal varices was again demonstrated, w no significant ascites. The lung cuts showed severe bilat patchy opacities suggestive of infectious/inflammatory process. The patient was admitted to ICU. He was treated with dexamethasone, a bicarb drip, and insulin drip. U/o and renal fxn improved slightly and his lactic and metabolic acidoses resolved. However oxygenation deteriorated, and he required tracheal intubation on 01/08, along with NMB. We were able to d/c the Nimbex yesterday and get his FiO2 down as low as 60%. Echo yesterday showed moderate LVH, normal LV size and fxn, normal RV size, normal RVSP. Separately, on our exam, IVC measured 1.9cm w about 50% insp collapse. We gave him two doses of albumin overnite. Overnite he required an FiO2 increase to 100%. This morning, he continues off the Nimbex. FiO2 is down to 80%. He?s lightly sedated on propofol 40ug and fentanyl 50 ug. Also on insulin @ 3u/hr. He arouses easily but is not purposefully interactive. HR 80, BP 177/81. On no antihypertensives (as on hydralazine and metoprolol at home). On AC 16/520/80%/+12, RR is 23, Ve 12L, Pip 28cm, ETCO2 27mm, Sat 93%. CVBG this morn showed 7.34/36/-5. He?s been afebrile thruout. No JVD at 30?. Normal exp phase. No edema. Last blood smear in his stool was back on 01/08. LABORATORY DATA: As below. Notably, Hb down to 7.4 from 8.1 yesterday. Na up to 144, BUN/creat down to 66/2.7 (71/3.0 yest). Alb 3.2. Ferritin 169, PCT 0.2, CRP down to 4.8. Urine sodium last night was 32, but he had had diuretic. MICROBIOLOGY: Sputum Gram stain from yesterday showed 3+ polys, 1+ Gram- positive cocci. Culture negative so far. Urinalysis from yesterday was negative. IMPRESSION: 45 yo M with underlying supermorbid obesity, DM2, HTN, CKD3, MCA territory CVA Feb ? w no deficit, PVD s/p bilat BKA, HCV w cirrhosis, asthma. The patient had the Abhay & Abhay COVID vaccine on October 24. 1. Bilat pulmon infiltrates 2? COVID pneumonia. It?s possible that the J&J vaccine is preventing further deterioration (e.g. in oxygenation and renal fxn). Yesterday, I started him on ivermectin, changed his decadron to Solu-Medrol 80mg bid, and added vit D and thiamine. Follow COVID biomarkers. 2. ARDS 2? above. 3. Hypoxemic respiratory failure. His lung compliance in not bad, and he?s not as hypoxemic as I would have expected, giving his CT picture. 4. Acute on chronic kidney injury. Likely 2? COVID. Fortunately, seems to be improving rather than deteriorating. The echo was suggestive of fluid responsiveness. His renal indices are down after getting the albumin overnight, and he is making excellent urine. I gave him a bolus of crystalloid this morning and started him on a low-dose crystalloid infusion. We?ll follow his renal indices daily. 5. GI. Slow Hb loss. We?ll check hemeoccult x 3. At this point, the situation is such that I would not put him on ASA, and would not give him more than 5000 u TID heparin for DVT prophylaxis. 6. ID. No evidence of bacterial infection at this point, no reason to consider antibiotics. 7. Hyperglycemia. Stabilized now. Continue insulin drip. 8. Metabolic. Started on resin binder to control his potassium. Nonanion gap metabolic acidosis, presumably from renal dz, is stable. Using 1/2NS for volume infusion and sodium control. 9. Nutrition. Starting glucerna tube feeds today. I spoke to the patient?s mother, Nancy Rahman ([phone]) and updated her on condition and prognosis. I cautioned her that most patients requiring mechanical ventilation do not survive, but with his young age and his improving renal indices, there is reason to have hope. Critical care time: 70 min. Critical Care Time (minutes): 70 Physical Exam Vital Signs: Vital Signs: Last Vital Signs Temp 99.0 F 01/10/21 12:00 Pulse 80 01/10/21 12:00 Resp 20 01/10/21 12:00 BP 185/81 H 01/10/21 12:00 Pulse Ox 93 01/10/21 12:00 Oxygen Flow Rate 100 01/07/21 05:11 Body Mass Index 41.4 Objective Data Labs CBC & Chem 7: 01/10/21 05:20 01/10/21 05:20 Labs: Laboratory Results - last 24 hr 01/09/21 01/09/21 01/09/21 15:03 17:46 19:36 WBC RBC Hgb Hct MCV MCH MCHC RDW Plt Count MPV Immature Gran % (Auto) Neut % (Auto) Lymph % (Auto) [place] % (Auto) Eos % (Auto) Baso % (Auto) Lymph # (Auto) [place] # (Auto) Eos # (Auto) Baso # (Auto) Abs Immat Gran (auto) Absolute Neuts (auto) Absolute Nucleated RBC Nucleated RBC % (auto) VBG pH VBG pCO2 VBG pO2 VBG HCO3 VBG O2 Saturation VBG Base Excess Sodium Potassium Chloride Carbon Dioxide Anion Gap BUN Creatinine Estim Creat Clear Calc Estimated GFR POC Glucose 207 H 198 H 191 H Random Glucose Calcium Ferritin Total Bilirubin AST ALT Alkaline Phosphatase C-Reactive Protein Total Protein Albumin Procalcitonin Urine Color Urine Appearance Urine pH Ur Specific [place] Urine Protein Urine Glucose (UA) Urine Ketones Urine Blood Urine Nitrite Ur Leukocyte Esterase Urine RBC Urine WBC Ur Squamous Epith Cells Amorphous Sediment Urine Bacteria Ur Random Sodium 01/09/21 01/09/21 01/09/21 20:45 21:01 21:01 WBC RBC Hgb Hct MCV MCH MCHC RDW Plt Count MPV Immature Gran % (Auto) Neut % (Auto) Lymph % (Auto) [place] % (Auto) Eos % (Auto) Baso % (Auto) Lymph # (Auto) [place] # (Auto) Eos # (Auto) Baso # (Auto) Abs Immat Gran (auto) Absolute Neuts (auto) Absolute Nucleated RBC Nucleated RBC % (auto) VBG pH VBG pCO2 VBG pO2 VBG HCO3 VBG O2 Saturation VBG Base Excess Sodium Potassium Chloride Carbon Dioxide Anion Gap BUN Creatinine Estim Creat Clear Calc Estimated GFR POC Glucose 156 H Random Glucose Calcium Ferritin Total Bilirubin AST ALT Alkaline Phosphatase C-Reactive Protein Total Protein Albumin Procalcitonin Urine Color YELLOW Urine Appearance CLEAR Urine pH 6.0 Ur Specific [place] 1.020 Urine Protein 3+ H Urine Glucose (UA) 100 H Urine Ketones NEG Urine Blood 1+ H Urine Nitrite NEG Ur Leukocyte Esterase NEG Urine RBC 1-4 Urine WBC 1-4 Ur Squamous Epith Cells TRACE Amorphous Sediment 1+ Urine Bacteria TRACE Ur Random Sodium 32.0 01/09/21 01/09/21 01/10/21 22:12 23:06 00:04 WBC RBC Hgb Hct MCV MCH MCHC RDW Plt Count MPV Immature Gran % (Auto) Neut % (Auto) Lymph % (Auto) [place] % (Auto) Eos % (Auto) Baso % (Auto) Lymph # (Auto) [place] # (Auto) Eos # (Auto) Baso # (Auto) Abs Immat Gran (auto) Absolute Neuts (auto) Absolute Nucleated RBC Nucleated RBC % (auto) VBG pH VBG pCO2 VBG pO2 VBG HCO3 VBG O2 Saturation VBG Base Excess Sodium Potassium Chloride Carbon Dioxide Anion Gap BUN Creatinine Estim Creat Clear Calc Estimated GFR POC Glucose 165 H 159 H 155 H Random Glucose Calcium Ferritin Total Bilirubin AST ALT Alkaline Phosphatase C-Reactive Protein Total Protein Albumin Procalcitonin Urine Color Urine Appearance Urine pH Ur Specific [place] Urine Protein Urine Glucose (UA) Urine Ketones Urine Blood Urine Nitrite Ur Leukocyte Esterase Urine RBC Urine WBC Ur Squamous Epith Cells Amorphous Sediment Urine Bacteria Ur Random Sodium 01/10/21 01/10/21 01/10/21 01:10 01:55 04:03 WBC RBC Hgb Hct MCV MCH MCHC RDW Plt Count MPV Immature Gran % (Auto) Neut % (Auto) Lymph % (Auto) [place] % (Auto) Eos % (Auto) Baso % (Auto) Lymph # (Auto) [place] # (Auto) Eos # (Auto) Baso # (Auto) Abs Immat Gran (auto) Absolute Neuts (auto) Absolute Nucleated RBC Nucleated RBC % (auto) VBG pH VBG pCO2 VBG pO2 VBG HCO3 VBG O2 Saturation VBG Base Excess Sodium Potassium Chloride Carbon Dioxide Anion Gap BUN Creatinine Estim Creat Clear Calc Estimated GFR POC Glucose 136 H 100 193 H Random Glucose Calcium Ferritin Total Bilirubin AST ALT Alkaline Phosphatase C-Reactive Protein Total Protein Albumin Procalcitonin Urine Color Urine Appearance Urine pH Ur Specific [place] Urine Protein Urine Glucose (UA) Urine Ketones Urine Blood Urine Nitrite Ur Leukocyte Esterase Urine RBC Urine WBC Ur Squamous Epith Cells Amorphous Sediment Urine Bacteria Ur Random Sodium 01/10/21 01/10/21 01/10/21 05:15 05:20 05:20 WBC 7.2 RBC 2.67 L Hgb 7.4 L Hct 23.2 L MCV 86.9 MCH 27.7 MCHC 31.9 RDW 14.9 Plt Count 142 L MPV 12.6 H Immature Gran % (Auto) 2.0 H Neut % (Auto) 87.1 H Lymph % (Auto) 5.7 L [place] % (Auto) 5.2 Eos % (Auto) 0.0 Baso % (Auto) 0.0 Lymph # (Auto) 0.4 L [place] # (Auto) 0.4 Eos # (Auto) 0.0 Baso # (Auto) 0.0 Abs Immat Gran (auto) 0.14 H Absolute Neuts (auto) 6.2 Absolute Nucleated RBC 0.000 Nucleated RBC % (auto) 0.0 VBG pH VBG pCO2 VBG pO2 VBG HCO3 VBG O2 Saturation VBG Base Excess Sodium 144 Potassium 4.7 Chloride 113 H Carbon Dioxide 19 L Anion Gap 17 BUN 66 H Creatinine 2.78 H Estim Creat Clear Calc 51.2 Estimated GFR 25 POC Glucose 191 H Random Glucose 225 H D Calcium 8.2 L Ferritin 169 Total Bilirubin 0.5 AST 17 D ALT 12 Alkaline Phosphatase 96 D C-Reactive Protein 4.81 H Total Protein 5.8 L Albumin 3.2 L Procalcitonin Urine Color Urine Appearance Urine pH Ur Specific [place] Urine Protein Urine Glucose (UA) Urine Ketones Urine Blood Urine Nitrite Ur Leukocyte Esterase Urine RBC Urine WBC Ur Squamous Epith Cells Amorphous Sediment Urine Bacteria Ur Random Sodium 01/10/21 01/10/21 01/10/21 05:20 05:49 06:16 WBC RBC Hgb Hct MCV MCH MCHC RDW Plt Count MPV Immature Gran % (Auto) Neut % (Auto) Lymph % (Auto) [place] % (Auto) Eos % (Auto) Baso % (Auto) Lymph # (Auto) [place] # (Auto) Eos # (Auto) Baso # (Auto) Abs Immat Gran (auto) Absolute Neuts (auto) Absolute Nucleated RBC Nucleated RBC % (auto) VBG pH 7.34 VBG pCO2 36 VBG pO2 59 VBG HCO3 20 L VBG O2 Saturation 83.0 VBG Base Excess -5.0 Sodium Potassium Chloride Carbon Dioxide Anion Gap BUN Creatinine Estim Creat Clear Calc Estimated GFR POC Glucose 198 H Random Glucose Calcium Ferritin Total Bilirubin AST ALT Alkaline Phosphatase C-Reactive Protein Total Protein Albumin Procalcitonin 0.28 Urine Color Urine Appearance Urine pH Ur Specific [place] Urine Protein Urine Glucose (UA) Urine Ketones Urine Blood Urine Nitrite Ur Leukocyte Esterase Urine RBC Urine WBC Ur Squamous Epith Cells Amorphous Sediment Urine Bacteria Ur Random Sodium 01/10/21 01/10/21 07:02 11:00 WBC RBC Hgb Hct MCV MCH MCHC RDW Plt Count MPV Immature Gran % (Auto) Neut % (Auto) Lymph % (Auto) [place] % (Auto) Eos % (Auto) Baso % (Auto) Lymph # (Auto) [place] # (Auto) Eos # (Auto) Baso # (Auto) Abs Immat Gran (auto) Absolute Neuts (auto) Absolute Nucleated RBC Nucleated RBC % (auto) VBG pH VBG pCO2 VBG pO2 VBG HCO3 VBG O2 Saturation VBG Base Excess Sodium Potassium Chloride Carbon Dioxide Anion Gap BUN Creatinine Estim Creat Clear Calc Estimated GFR POC Glucose 180 H 225 H Random Glucose Calcium Ferritin Total Bilirubin AST ALT Alkaline Phosphatase C-Reactive Protein Total Protein Albumin Procalcitonin Urine Color Urine Appearance Urine pH Ur Specific [place] Urine Protein Urine Glucose (UA) Urine Ketones Urine Blood Urine Nitrite Ur Leukocyte Esterase Urine RBC Urine WBC Ur Squamous Epith Cells Amorphous Sediment Urine Bacteria Ur Random Sodium Microbiology Microbiology Results: Microbiology 01/09/21 21:01 Sputum - Suctioned Gram Stain - Final 01/09/21 21:01 Sputum - Suctioned Sputum Culture - Preliminary No growth to date. 01/07/21 05:25 Blood - Venous Blood Culture - Preliminary No growth after 48 hours. 01/07/21 05:18 Blood - Venous Blood Culture - Preliminary No growth after 48 hours. Quality Stroke Does the patient have a stroke diagnosis?: No VTE Prior VTE?: No VTE Risk Level:: Medical - moderate - high VTE Device Contraindication: Treatment Not Indicated VTE Drug Contraindication: N/A - Med Ordered Critical Care Time Critical Care Time (minutes): 60
[2021-01-10] MEDS: Sodium Chloride 0.45 % 1,000 ML 50 ML IVCONT ×2 (12:59→18:09)
[2021-01-10] MEDS: propofoL 1,000 MG/100 ML VIAL 31.73 MG IVCONT ×5 (13:35→22:22)
[2021-01-10 13:43] LABS: Creatinine Urine 42.98 mg/dL
[2021-01-10 14:37] LABS: Microalbum/Creatinine Ratio Ur 11233.1 ug/mg cr
[2021-01-10 14:39] LABS: Glucose, Whole Blood 251 mg/dL (60-115)
[2021-01-10 18:04] LABS: Glucose, Whole Blood 217 mg/dL (60-115)
--- NOTE | 2021-01-10 18:18 | PC.NURSE ---
S/E TMAX 99, VSS. Pt sedated on propofol and fentanyl per emar. Pt awakens with noxious stimuli, occasionally opens eyes to sound. Pt titrated to FIO2 of 80%, peep of 12, satting 90%+ throughout shift. Sr with BBB on tele, TLC patent. Tube feed started and at max rate-- Glucerna 30ml/hr, pt tolerating well. Bath given, repo q2hr, family updated, facetime call initiated.
[2021-01-10 22:06] LABS: Glucose, Whole Blood 150 mg/dL (60-115)
[2021-01-11] VITALS (31 sets, daily range): BP systolic 114–174; BP diastolic 56–80; PULSE 70–78; RESP 12–25; TEMP 36.8–37.6; O2SAT 87–905; BMI 35.0
[2021-01-11 00:13] LABS: Glucose, Whole Blood 176 mg/dL (60-115)
[2021-01-11] MEDS: propofoL 1,000 MG/100 ML VIAL 39.66 MG IVCONT ×10 (00:24→23:15)
[2021-01-11 02:31] LABS: Glucose, Whole Blood 209 mg/dL (60-115)
[2021-01-11] MEDS: fentaNYL citrate/NS 1,000 MCG/100 ML PLAST..BAG 20 MCG IVCONT ×5 (03:29→22:03)
[2021-01-11 04:10] LABS: Glucose, Whole Blood 225 mg/dL (60-115)
[2021-01-11] MEDS: Heparin Sodium,Porcine 5,000 UNIT/ML VIAL 5000 UNIT SUBCUT ×3 (04:37→19:40)
[2021-01-11 05:34] LABS: VBG HCO3 20 mmol/L (22-26); VBG pCO2 37 mmHg; VBG pH 7.33 (7.32-7.43); VBG pO2 49 mmHg
[2021-01-11 05:40] LABS: Hematocrit 24.8 % (42-52); Hemoglobin 7.9 g/dl (14.0-18.0); Mean Corpuscular HGB Conc 31.9 g/dl (31.0-36.0); Mean Corpuscular Hemoglobin 27.8 pg (27.0-33.0); Mean Corpuscular Volume 87.3 fL (80-98); Mean Platelet Volume 12.6 fL (9.4-12.4); Platelet Count 153 X10*3/uL (160-400); Red Blood Count 2.84 X10*6/uL (4.60-5.80); Red Cell Distribution Width 14.6 % (11.0-16.0)
[2021-01-11 05:55] LABS: Lactic Acid 0.8 mmol/L (0.5-2.0)
[2021-01-11 05:59] LABS: Anion Gap 14 (12-20); Blood Urea Nitrogen 64 mg/dL (9-16); Calcium 8.2 mg/dL (8.4-10.2); Carbon Dioxide 21 mmol/L (22-29); Chloride 114 mmol/L (96-108); Estimated Glomerular Filt Rate 26; Glucose Random 228 mg/dL (60-115); Magnesium 2.4 mg/dL (1.6-2.6); Phosphorus 6.1 mg/dL (2.7-4.5); Potassium 4.6 mmol/L (3.3-5.1); Sodium 144 mmol/L (135-145)
[2021-01-11 06:04] LABS: D Dimer 1730 NG/ML
[2021-01-11] MEDS: QUEtiapine Fumarate 50 MG TABLET PO ×2 (07:58→21:38)
[2021-01-11] MEDS: Losartan Potassium 50 MG TABLET OG-TUBE (07:58)
[2021-01-11] MEDS: Cholecalciferol (Vitamin D3) 25 MCG TABLET 50 MCG OG-TUBE (07:58)
[2021-01-11 07:59] LABS: Venous Blood Gas Refer to POC result
[2021-01-11] MEDS: Chlorhexidine Gluc Oral Rinse 15 ML MOUTHWASH BUCCAL ×3 (07:59→21:38)
[2021-01-11] MEDS: Thiamine HCL 200 MG/2 ML VIAL IVPUSH ×2 (07:59→21:38)
[2021-01-11] MEDS: methylPREDNISolone Sod Succ 125 MG/2 ML VIAL 80 MG IVPUSH ×2 (07:59→21:37)
[2021-01-11] MEDS: Insulin Regular/NS 100 UNIT/100 ML PLAST..BAG 6 UNIT IVCONT (08:00)
[2021-01-11 08:33] LABS: Glucose, Whole Blood 162 mg/dL (60-115)
[2021-01-11] MEDS: Sodium Zirconium Cyclosilicate 10 GM POWD.PACK OG-TUBE ×2 (09:41→13:46)
--- NOTE | 2021-01-11 10:16 | PM.PNNEP ---
Subjective Subjective Date of Service: 01/11/21 Interval history: Mr. Preciado was admitted to ICU on January 07the with acute respiratory failure 2? COVID ARDS, hyperglycemia, KIRILL, and metabolic acidosis. 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 The patient had the Abhay & Abhay COVID vaccine on October 24. Reportedly lives at home with his . His mother is the HCP. HISTORY OF PRESENT ILLNESS: The patient recently returned from a trip to [place] and came to our ED on January 01 with 2 days of cough, chest congestion, and wheezing. Multiple family members had similar symptoms. Additionally, he reported bilateral lower abdominal pain and small amounts of bright red blood per rectum for the prior 2 weeks. In the ED, he tested positive for COVID-19. Sat was 97% on RA. Hemoglobin was noted to be 9.8 compared to a baseline of around 11-12. DDimer and CRP were only mildly elevated. CXR showed NAD. 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 Bilat pulmon infiltrates 2? COVID pneumonia. on vent Acute on chronic kidney injury. Likely 2? COVID. creat slowly improving . Physical Exam Vital Signs: Vital Signs: Last Vital Signs Temp 98.2 F 01/11/21 10:00 Pulse 72 01/11/21 10:00 Resp 16 01/11/21 10:00 BP 155/72 H 01/11/21 10:00 Pulse Ox 89 L 01/11/21 10:00 Oxygen Flow Rate 100 01/07/21 05:11 Body Mass Index 35.0 Const: General: no acute distress, alert, awake and anxious Nutritional Appearance: obese Eyes: Sclerae: sclerae normal EOM: EOMs intact bilaterally Neck: Neck: Yes no lymphadenopathy, Yes trachea midline and Yes supple Resp: Effort & Inspection: normal respiratory effort and no respiratory distress ( On high-flow nasal cannula and non-rebreather) Auscultation: crackles ( diffuse bilateral) Cardio: Rate: tachycardic Rhythm: regular rhythm Heart sounds: no gallops, no murmurs and no rubs GI: Palpation (GI): Soft to palpation and Other GI palpation findings present ( Nontender) Auscultation: normal bowel sounds Extrem: General: No clubbing, No cyanosis and Yes other ( bilateral BKA) Objective Data Labs CBC & Chem 7: 01/11/21 05:28 01/11/21 05:28 Labs: Laboratory Results - last 24 hr 01/10/21 01/10/21 01/10/21 11:00 12:57 14:36 WBC RBC Hgb Hct MCV MCH MCHC RDW Plt Count MPV Absolute Nucleated RBC Nucleated RBC % (auto) D-Dimer VBG pH VBG pCO2 VBG pO2 VBG HCO3 VBG O2 Saturation VBG Base Excess Sodium Potassium Chloride Carbon Dioxide Anion Gap BUN Creatinine Estim Creat Clear Calc Estimated GFR POC Glucose 225 H 251 H Random Glucose Lactic Acid Calcium Phosphorus Magnesium Urine Creatinine 42.98 Urine Microalbumin 4828.0 Microalb/Creat Ratio 79160.1 01/10/21 01/10/21 01/11/21 18:00 22:02 00:01 WBC RBC Hgb Hct MCV MCH MCHC RDW Plt Count MPV Absolute Nucleated RBC Nucleated RBC % (auto) D-Dimer VBG pH VBG pCO2 VBG pO2 VBG HCO3 VBG O2 Saturation VBG Base Excess Sodium Potassium Chloride Carbon Dioxide Anion Gap BUN Creatinine Estim Creat Clear Calc Estimated GFR POC Glucose 217 H 150 H 176 H Random Glucose Lactic Acid Calcium Phosphorus Magnesium Urine Creatinine Urine Microalbumin Microalb/Creat Ratio 01/11/21 01/11/21 01/11/21 02:08 04:02 05:27 WBC RBC Hgb Hct MCV MCH MCHC RDW Plt Count MPV Absolute Nucleated RBC Nucleated RBC % (auto) D-Dimer VBG pH 7.33 VBG pCO2 37 VBG pO2 49 VBG HCO3 20 L VBG O2 Saturation 69.0 VBG Base Excess -5.0 Sodium Potassium Chloride Carbon Dioxide Anion Gap BUN Creatinine Estim Creat Clear Calc Estimated GFR POC Glucose 209 H 225 H Random Glucose Lactic Acid Calcium Phosphorus Magnesium Urine Creatinine Urine Microalbumin Microalb/Creat Ratio 01/11/21 01/11/21 01/11/21 05:28 05:28 05:28 WBC 7.0 RBC 2.84 L Hgb 7.9 L Hct 24.8 L MCV 87.3 MCH 27.8 MCHC 31.9 RDW 14.6 Plt Count 153 L MPV 12.6 H Absolute Nucleated RBC 0.000 Nucleated RBC % (auto) 0.0 D-Dimer 1730 VBG pH VBG pCO2 VBG pO2 VBG HCO3 VBG O2 Saturation VBG Base Excess Sodium 144 Potassium 4.6 Chloride 114 H Carbon Dioxide 21 L Anion Gap 14 BUN 64 H Creatinine 2.66 H Estim Creat Clear Calc 49.0 Estimated GFR 26 POC Glucose Random Glucose 228 H Lactic Acid Calcium 8.2 L Phosphorus 6.1 H Magnesium 2.4 Urine Creatinine Urine Microalbumin Microalb/Creat Ratio 01/11/21 01/11/21 05:28 07:52 WBC RBC Hgb Hct MCV MCH MCHC RDW Plt Count MPV Absolute Nucleated RBC Nucleated RBC % (auto) D-Dimer VBG pH VBG pCO2 VBG pO2 VBG HCO3 VBG O2 Saturation VBG Base Excess Sodium Potassium Chloride Carbon Dioxide Anion Gap BUN Creatinine Estim Creat Clear Calc Estimated GFR POC Glucose 162 H Random Glucose Lactic Acid 0.8 Calcium Phosphorus Magnesium Urine Creatinine Urine Microalbumin Microalb/Creat Ratio Microbiology Microbiology Results: Microbiology 01/09/21 21:01 Sputum - Suctioned Gram Stain - Final 01/09/21 21:01 Sputum - Suctioned Sputum Culture - Preliminary Normal so far. 01/07/21 05:25 Blood - Venous Blood Culture - Preliminary No growth after 48 hours. 01/07/21 05:18 Blood - Venous Blood Culture - Preliminary No growth after 48 hours. Assessment & Plan Assessment and plan (1) Acute respiratory distress syndrome (ARDS) due to COVID-19 virus: Status: Acute Assessment and Plan: Assessment: 45-year-old gentleman with multiple medical issues admitted with acute hypoxic respiratory failure secondary to COVID-19 ARDS further complicated by acute on chronic renal failure on the background of peripheral vascular disease and hepatitis-C cirrhosis. we are asked to see for KIRILL and CKD he has acute COVID pneumonia he is followed by Dr Hzd baseline cr 2.6 longstanding uncontrolled diabetes, uncontrolled hypertension, status post right BKA, left AKA, osteomyelitis right shoulder presented recently to [facility] [place] with headache, dysarthria, left upper extremity weakness. MRI with multiple acute right MCA infarcts, MRA head and neck, no major neck artery stenosis, but had multiple intracerebral stenosis. Plan: i suspect he has COVID related KIRILL his creat is improved but not to baseline we will follow closely Neuro: No acute issues. Underlying history of CVA, previously on dual antiplatelet therapy, now held secondary to recent GI bleed. Cardiac: No acute issues. Underlying history of hypertension. Pulmonary: Acute hypoxic respiratory failure secondary to COVID-19 ARDS now requiring high-flow nasal cannula and non-rebreather to. Continue to titrate off as tolerated. Continue with dexamethasone. Renal: Acute on chronic renal failure , likely multifactorial, improving. Non oliguric. Continue to monitor renal indices and urine output. Endo: Hyperglycemia without diabetic ketoacidosis. Continue insulin drip. GI: Underlying history of colonic mass versus spasm, initially with worsening lactic acidosis and concern for bowel ischemia. CT abdomen pelvis with p.o. contrast with no evidence of colitis or mass. ID: [id number]. Continues on dexamethasone. Heme/Onc: No acute issues. Psych: No acute issues. Miscellaneous: No acute issues. Prophylaxis: Heparin, ppi Diet: diabetic Critical care time spent: 60 minutes (2) Acute on chronic kidney failure: Status: Acute (3) Acute respiratory failure with hypoxia: Status: Acute (4) Hepatitis C, chronic: Status: Acute (5) Cirrhosis: Status: Acute (6) Diabetes: Status: Acute (7) Hypertension: Status: Acute Time Spent With Patient Time: Total time spent is greater than 50% in coordination of care (as documented) at patient's floor/unit and/or counseling patient: Procedures Date of Service Date of Service: 01/11/21 Progress Note: Quality Stroke Does the patient have a stroke diagnosis?: No
--- NOTE | 2021-01-11 10:18 | MHC.CLN ---
F/U PT REMAINS INTUBATED AND SEDATED PT RECEIVING GLUCERNA AT MAX GOAL RATE 30CC/HR PROVIDES 720KCALS (1767KCALS WITH SEDATION; 24KCALS/KG BASED ON IBW), 30G PROTEIN (.4G/KG), 614CC FREE WATER FROM FORMULA DISCUSSED WITH MD DURING ROUNDS RECOMMEND 30CC PROSOURCE Q DAY TO PROVIDE 15G PROTEIN, 60KCALS WILL START 240CC FREE WATER FLUSHES Q 6HRS PER MD (1574CC TOTAL WATER FROM FORMULA AND FLUSHES) MONITOR TOLERANCE, RESIDUALS AND LYTES
--- NOTE | 2021-01-11 11:02 | MHC.CM.PN ---
Review of EMR notes pt continues on ventilatory support but at a reduced FiO2 of 55. Call placed to pt's HCP/mother Nancy to give clinical updates. CM will follow for assessment of d/c needs
[2021-01-11 11:17] LABS: Glucose, Whole Blood 153 mg/dL (60-115)
--- NOTE | 2021-01-11 11:21 | PM.CCPN ---
Subjective Subjective Date of Service: 01/11/21 Interval History: Mr. Preciado was admitted to ICU on January 07 with acute respiratory failure 2? COVID ARDS, hyperglycemia, KIRILL, and metabolic acidosis. 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 The patient had the Abhay & Abhay COVID vaccine on October 24. Reportedly lives at home with his . His mother is the HCP. HISTORY OF PRESENT ILLNESS: The patient recently returned from a trip to [place] and came to our ED on January 01 with 2 days of cough, chest congestion, and wheezing. Multiple family members had similar symptoms. Additionally, he reported bilateral lower abdominal pain and small amounts of bright red blood per rectum for the prior 2 weeks. In the ED, he tested positive for COVID-19. Sat was 97% on RA. Hemoglobin was noted to be 9.8 compared to a baseline of around 11-12. DDimer and CRP were only mildly elevated. CXR showed NAD. CT of the abdomen and pelvis without contrast showed a 4.5 cm segment of distal transverse colon with circumferential wall thickening and luminal narrowing that could represent either spasm or colonic mass; there was also a masslike density near the ileocecal valve. Also demonstrated were splenomegaly and small upper abdominal varices but no ascites. The lung were clear by my reading; the radiologist read a few questionable small areas of ground-glass opacities. He was admitted and treated with steroids for asthma exaccerebation. His wheezing resolved. DAPT for his stroke was held and his Hb was stable and he had no bleeding. His hematochezia was thought very possibly due to hemorrhoids found on exam. Bec of his COVID status, further GI workup w colonoscopy was deferred, as was GI f/u and treatment for his Hep C. He was discharged home on January 04. On January 07 he represented to the ED in moderate respiratory distress. SpO2 was low 70s on room air, 88% on O2 FM, and 94% on 100% HFNC. Labs were notable for WBC 13, Hb 10.4, BUN/creat were 68/3.1 (from 53/3/0 on 01/04), Bicarb was 13, K was 5.2, gluc was 546, lactate was 3.2, alb was 2.2. Acetone was negative. DDimer was bumped to 1581 (from 506 on 01/03), CRP was up to 14. ABG (on ?100% FiO2) showed 7.32/19/88/-13. CXR showed patchy multifocal opacities in both lungs, c/w COVID. CT abdomen done for f/u of prev CT and bec of lactic acidosis showed the same two equivocal findings in the colon, one at the ileocecal valve region and one in the distal transverse colon ?which require further assessment in the setting of GI bleeding to exclude underlying malignancy.? Hepatic cirrhosis with portal venous hypertension as evidenced by splenomegaly and small upper abdominal varices was again demonstrated, w no significant ascites. The lung cuts showed severe bilat patchy opacities suggestive of infectious/inflammatory process. The patient was admitted to ICU. He was treated with dexamethasone, a bicarb drip, and insulin drip. U/o and renal fxn improved slightly and his lactic and metabolic acidoses resolved. However oxygenation deteriorated, and he required tracheal intubation on 01/08, along with NMB. We were able to d/c the Nimbex the next day and get his FiO2 down as low as 60%. Echo showed moderate LVH, normal LV size and fxn, normal RV size, normal RVSP, and IVC measured 1.9cm w about 50% insp collapse. We started him on ivermectin, vit D, and thimaine, upped his steroids to Solumedrol 80mg bid, and gave gentle volume resusc. Yest we started him on losartan bec of HTN. Over the last few days, his renal indices have slowly improved. We?ve been able to get his FiO2 down to 50%. And he remains easily arousable from his sedation, altho noninteractive. This morning, he?s on propofol 50ug and fentanyl 200 ug, along w insulin @ 5u/hr, and ? NS @ 50cc/hr. He arouses easily, but is noninteractive. HR 71, BP down to 157/71. On AC 16/520/50%/+12, RR is 19, Ve 9.5L, PIP 30cm, ETCO2 36mm, Sat 91%. CVBG this morn showed 7.33/37/-5. He?s been afebrile thruout. No JVD at 30?. Normal exp phase. No significant edema. Last blood smear in his stool was back on 01/08. LABORATORY DATA: As below. Notably, Hb up to 7.9. BUN/creat down to 64/2.6 (66/2.7 yest). Bicarb steady. Phos up to 6.1. K 4.6 despite binder. DDimer up to 1700. MICROBIOLOGY: Sputum Gram stain 01/09 showed 3+ polys, 1+ Gram-positive cocci. Culture negative. Urinalysis 01/09 was negative. IMPRESSION: 45 yo M with underlying supermorbid obesity, DM2, HTN, CKD3, MCA territory CVA Fe ? w no deficit, PVD s/p bilat BKA, HCV w cirrhosis, asthma. The patient had the Abhay & Abhay COVID vaccine on October 24. 1. Bilat pulmon infiltrates 2? COVID pneumonia. Symptom onset date approx. December 30. It?s possible that the J&J vaccine is preventing further deterioration (e.g. in oxygenation and renal fxn). Now on ivermectin, Solu-Medrol 80mg bid, vit D, and thiamine. Follow COVID biomarkers. 2. ARDS 2? above. Compliance and A-a gradient are good/improving. 3. Hypoxemic respiratory failure. He?s not as hypoxemic as I would have expected, giving his CT picture. 4. Acute on chronic kidney injury. Likely 2? COVID. Fortunately, seems to be improving rather than deteriorating. The echo was suggestive of fluid responsiveness, and his renal indices are improving and he?s making excellent urine after volume challenge. I?ll stop his crystalloid infusion today and give him free water via G tube. Follow renal indices daily. 5. GI. Slow Hb loss of still unclear etiol. Bloody smears would suggest hemorrhoids. Waiting for hemeoccult. At this point, the situation is such that I would not put him on ASA, and would not give him more than 5000 u TID heparin for DVT prophylaxis. 6. ID. No evidence of bacterial infection at this point, no reason to consider antibiotics. 7. Hyperglycemia. Stabilized now. Continue insulin drip. 8. Metabolic. Started on resin binder to control his potassium. Nonanion gap metabolic acidosis, presumably from renal dz, is stable. Treating hypernatremia with enteral free water. 9. Nutrition. Started glucerna tube feeds. Adding protein supplement. I spoke to the patient?s mother, Nancy Rahman ([phone]), yesterday, and updated her on condition and prognosis. I cautioned her that most patients requiring mechanical ventilation do not survive, but with his young age and his improving renal indices, there is reason to have hope. Critical care time: 55 min. Critical Care Time (minutes): 55 Physical Exam Vital Signs: Vital Signs: Last Vital Signs Temp 98.2 F 01/11/21 10:00 Pulse 74 01/11/21 11:00 Resp 20 01/11/21 11:00 BP 158/69 H 01/11/21 11:00 Pulse Ox 91 L 01/11/21 11:00 Oxygen Flow Rate 100 01/07/21 05:11 Body Mass Index 35.0 Objective Data Labs CBC & Chem 7: 01/11/21 05:28 01/11/21 05:28 Labs: Laboratory Results - last 24 hr 01/10/21 01/10/21 01/10/21 12:57 14:36 18:00 WBC RBC Hgb Hct MCV MCH MCHC RDW Plt Count MPV Absolute Nucleated RBC Nucleated RBC % (auto) D-Dimer VBG pH VBG pCO2 VBG pO2 VBG HCO3 VBG O2 Saturation VBG Base Excess Sodium Potassium Chloride Carbon Dioxide Anion Gap BUN Creatinine Estim Creat Clear Calc Estimated GFR POC Glucose 251 H 217 H Random Glucose Lactic Acid Calcium Phosphorus Magnesium Urine Creatinine 42.98 Urine Microalbumin 4828.0 Microalb/Creat Ratio 89614.1 01/10/21 01/11/21 01/11/21 22:02 00:01 02:08 WBC RBC Hgb Hct MCV MCH MCHC RDW Plt Count MPV Absolute Nucleated RBC Nucleated RBC % (auto) D-Dimer VBG pH VBG pCO2 VBG pO2 VBG HCO3 VBG O2 Saturation VBG Base Excess Sodium Potassium Chloride Carbon Dioxide Anion Gap BUN Creatinine Estim Creat Clear Calc Estimated GFR POC Glucose 150 H 176 H 209 H Random Glucose Lactic Acid Calcium Phosphorus Magnesium Urine Creatinine Urine Microalbumin Microalb/Creat Ratio 01/11/21 01/11/21 01/11/21 04:02 05:27 05:28 WBC RBC Hgb Hct MCV MCH MCHC RDW Plt Count MPV Absolute Nucleated RBC Nucleated RBC % (auto) D-Dimer VBG pH 7.33 VBG pCO2 37 VBG pO2 49 VBG HCO3 20 L VBG O2 Saturation 69.0 VBG Base Excess -5.0 Sodium 144 Potassium 4.6 Chloride 114 H Carbon Dioxide 21 L Anion Gap 14 BUN 64 H Creatinine 2.66 H Estim Creat Clear Calc 49.0 Estimated GFR 26 POC Glucose 225 H Random Glucose 228 H Lactic Acid Calcium 8.2 L Phosphorus 6.1 H Magnesium 2.4 Urine Creatinine Urine Microalbumin Microalb/Creat Ratio 01/11/21 01/11/21 01/11/21 05:28 05:28 05:28 WBC 7.0 RBC 2.84 L Hgb 7.9 L Hct 24.8 L MCV 87.3 MCH 27.8 MCHC 31.9 RDW 14.6 Plt Count 153 L MPV 12.6 H Absolute Nucleated RBC 0.000 Nucleated RBC % (auto) 0.0 D-Dimer 1730 VBG pH VBG pCO2 VBG pO2 VBG HCO3 VBG O2 Saturation VBG Base Excess Sodium Potassium Chloride Carbon Dioxide Anion Gap BUN Creatinine Estim Creat Clear Calc Estimated GFR POC Glucose Random Glucose Lactic Acid 0.8 Calcium Phosphorus Magnesium Urine Creatinine Urine Microalbumin Microalb/Creat Ratio 01/11/21 01/11/21 07:52 11:00 WBC RBC Hgb Hct MCV MCH MCHC RDW Plt Count MPV Absolute Nucleated RBC Nucleated RBC % (auto) D-Dimer VBG pH VBG pCO2 VBG pO2 VBG HCO3 VBG O2 Saturation VBG Base Excess Sodium Potassium Chloride Carbon Dioxide Anion Gap BUN Creatinine Estim Creat Clear Calc Estimated GFR POC Glucose 162 H 153 H Random Glucose Lactic Acid Calcium Phosphorus Magnesium Urine Creatinine Urine Microalbumin Microalb/Creat Ratio Microbiology Microbiology Results: Microbiology 01/09/21 21:01 Sputum - Suctioned Gram Stain - Final 01/09/21 21:01 Sputum - Suctioned Sputum Culture - Preliminary Normal so far. 01/07/21 05:25 Blood - Venous Blood Culture - Preliminary No growth after 48 hours. 01/07/21 05:18 Blood - Venous Blood Culture - Preliminary No growth after 48 hours. Quality Stroke Does the patient have a stroke diagnosis?: No VTE Prior VTE?: No VTE Risk Level:: Medical - moderate - high VTE Device Contraindication: Treatment Not Indicated VTE Drug Contraindication: N/A - Med Ordered Critical Care Time Critical Care Time (minutes): 60
[2021-01-11] MEDS: propofoL 1,000 MG/100 ML VIAL 35.69 MG IVCONT (12:04)
[2021-01-11] MEDS: Lactulose 20 GM/30 ML SOLUTION OG-TUBE (13:46)
[2021-01-11 14:07] LABS: Glucose, Whole Blood 182 mg/dL (60-115)
[2021-01-11 15:59] LABS: Glucose, Whole Blood 165 mg/dL (60-115)
[2021-01-11 18:19] LABS: Glucose, Whole Blood 157 mg/dL (60-115)
[2021-01-11 20:31] LABS: Kappa Light Chain, Free Serum 127.6 mg/L (3.3-19.4); Kappa/Lambda Lt Ch Free Ratio 0.88 (0.26-1.65); Lambda Light Chain, Free Serum 145.7 mg/L (5.7-26.3)
[2021-01-11 22:45] LABS: Glucose, Whole Blood 82 mg/dL (60-115)
[2021-01-11 22:45] LABS: Glucose, Whole Blood 65 mg/dL (60-115)
[2021-01-11 23:36] LABS: Glucose, Whole Blood 111 mg/dL (60-115)
[2021-01-12] VITALS (34 sets, daily range): BP systolic 124–210; BP diastolic 60–88; PULSE 75–91; RESP 13–27; TEMP 36.8–37.6; O2SAT 88–98; BMI 33.4
[2021-01-12 01:35] LABS: Glucose, Whole Blood 208 mg/dL (60-115)
[2021-01-12] MEDS: fentaNYL citrate/NS 1,000 MCG/100 ML PLAST..BAG 20 MCG IVCONT ×5 (02:40→19:34)
[2021-01-12] MEDS: Cisatracurium Besylate 20 MG/10 ML VIAL 10 MG IVPUSH (02:56)
[2021-01-12] MEDS: propofoL 1,000 MG/100 ML VIAL 39.66 MG IVCONT ×10 (03:23→23:23)
[2021-01-12 03:55] LABS: Glucose, Whole Blood 202 mg/dL (60-115)
[2021-01-12] MEDS: Heparin Sodium,Porcine 5,000 UNIT/ML VIAL 5000 UNIT SUBCUT ×3 (04:57→19:27)
[2021-01-12 05:29] LABS: VBG Base Excess -4.7 mmol/L; VBG HCO3 20 mmol/L (22-26); VBG pCO2 37 mmHg; VBG pH 7.34 (7.32-7.43); VBG pO2 52 mmHg
[2021-01-12 05:31] LABS: Venous Blood Gas Refer to POC result
[2021-01-12 05:50] LABS: Hematocrit 25.1 % (42-52); Hemoglobin 7.8 g/dl (14.0-18.0); Mean Corpuscular HGB Conc 31.1 g/dl (31.0-36.0); Mean Corpuscular Hemoglobin 27.5 pg (27.0-33.0); Mean Corpuscular Volume 88.4 fL (80-98); Mean Platelet Volume 12.5 fL (9.4-12.4); Platelet Count 148 X10*3/uL (160-400); Red Blood Count 2.84 X10*6/uL (4.60-5.80); White Blood Count 8.1 X10*3/uL (4.8-10.8)
[2021-01-12] MEDS: Insulin Regular/NS 100 UNIT/100 ML PLAST..BAG IVCONT (05:56)
[2021-01-12 06:15] LABS: Albumin Level 2.5 g/dL (3.5-5.0); Anion Gap 15 (12-20); Blood Urea Nitrogen 69 mg/dL (9-16); Calcium 7.8 mg/dL (8.4-10.2); Carbon Dioxide 20 mmol/L (22-29); Chloride 114 mmol/L (96-108); Creatinine Clr Calc Pharmacy 49.5; Estimated Glomerular Filt Rate 26; Glucose Random 235 mg/dL (60-115); Phosphorus 6.4 mg/dL (2.7-4.5); Potassium 4.1 mmol/L (3.3-5.1); Sodium 145 mmol/L (135-145)
[2021-01-12] MEDS: Albumin Human 25 % 100 ML IV ×2 (07:16→08:03)
--- NOTE | 2021-01-12 07:45 | PM.PNNEP ---
Subjective Subjective Date of Service: 01/12/21 Interval history: Mr. Preciado was admitted to ICU on January 07 with acute respiratory failure 2? COVID ARDS, hyperglycemia, KIRILL, and metabolic acidosis. The patient is a 45yo M with supermorbid obesity, DM2, HTN, CKD3, MCA territory CVA Fe ? w no deficit, PVD s/p bilat BKA w chronic phantom limb pain, former heroin use, HCV w cirrhosis, asthma, and h/o Rt shoulder osteomyelitis w septic arthritis. The patient had the Abhay & Abhay COVID vaccine on October 24. Reportedly lives at home with his . His mother is the HCP. HISTORY OF PRESENT ILLNESS: The patient recently returned from a trip to [place] and came to our ED on January 01 with 2 days of cough, chest congestion, and wheezing. Multiple family members had similar symptoms. Additionally, he reported bilateral lower abdominal pain and small amounts of bright red blood per rectum for the prior 2 weeks. In the ED, he tested positive for COVID-19. Sat was 97% on RA. Hemoglobin was noted to be 9.8 compared to a baseline of around 11-12. DDimer and CRP were only mildly elevated. L 3. Hypoxemic respiratory failure. 4. Acute on chronic kidney injury. Likely 2? COVID. Physical Exam Vital Signs: Vital Signs: Last Vital Signs Temp 99.3 F 01/12/21 07:00 Pulse 76 01/12/21 07:00 Resp 13 01/12/21 07:00 BP 148/72 H 01/12/21 07:00 Pulse Ox 98 01/12/21 07:00 Oxygen Flow Rate 100 01/07/21 05:11 Body Mass Index 33.4 Const: General: no acute distress, alert, awake and anxious Nutritional Appearance: obese Eyes: Sclerae: sclerae normal EOM: EOMs intact bilaterally Neck: Neck: Yes no lymphadenopathy, Yes trachea midline and Yes supple Resp: Effort & Inspection: normal respiratory effort and no respiratory distress ( On high-flow nasal cannula and non-rebreather) Auscultation: crackles ( diffuse bilateral) Cardio: Rate: tachycardic Rhythm: regular rhythm Heart sounds: no gallops, no murmurs and no rubs GI: Palpation (GI): Soft to palpation and Other GI palpation findings present ( Nontender) Auscultation: normal bowel sounds Extrem: General: No clubbing, No cyanosis and Yes other ( bilateral BKA) Objective Data Labs CBC & Chem 7: 01/12/21 05:20 01/12/21 05:20 Labs: Laboratory Results - last 24 hr 01/10/21 01/11/21 01/11/21 10:05 07:52 11:00 WBC RBC Hgb Hct MCV MCH MCHC RDW Plt Count MPV Absolute Nucleated RBC Nucleated RBC % (auto) VBG pH VBG pCO2 VBG pO2 VBG HCO3 VBG O2 Saturation VBG Base Excess Sodium Potassium Chloride Carbon Dioxide Anion Gap BUN Creatinine Estim Creat Clear Calc Estimated GFR POC Glucose 162 H 153 H Random Glucose Calcium Phosphorus Albumin Free [place] LC, Quant 127.6 H Free Lambda LC, Quant 145.7 H Free [place]/Lambda Ratio 0.88 01/11/21 01/11/21 01/11/21 13:53 15:56 18:13 WBC RBC Hgb Hct MCV MCH MCHC RDW Plt Count MPV Absolute Nucleated RBC Nucleated RBC % (auto) VBG pH VBG pCO2 VBG pO2 VBG HCO3 VBG O2 Saturation VBG Base Excess Sodium Potassium Chloride Carbon Dioxide Anion Gap BUN Creatinine Estim Creat Clear Calc Estimated GFR POC Glucose 182 H 165 H 157 H Random Glucose Calcium Phosphorus Albumin Free [place] LC, Quant Free Lambda LC, Quant Free [place]/Lambda Ratio 01/11/21 01/11/21 01/11/21 21:43 22:41 23:19 WBC RBC Hgb Hct MCV MCH MCHC RDW Plt Count MPV Absolute Nucleated RBC Nucleated RBC % (auto) VBG pH VBG pCO2 VBG pO2 VBG HCO3 VBG O2 Saturation VBG Base Excess Sodium Potassium Chloride Carbon Dioxide Anion Gap BUN Creatinine Estim Creat Clear Calc Estimated GFR POC Glucose 65 82 111 Random Glucose Calcium Phosphorus Albumin Free [place] LC, Quant Free Lambda LC, Quant Free [place]/Lambda Ratio 01/12/21 01/12/21 01/12/21 01:29 03:48 05:20 WBC 8.1 RBC 2.84 L Hgb 7.8 L Hct 25.1 L MCV 88.4 MCH 27.5 MCHC 31.1 RDW 15.0 Plt Count 148 L MPV 12.5 H Absolute Nucleated RBC 0.000 Nucleated RBC % (auto) 0.0 VBG pH VBG pCO2 VBG pO2 VBG HCO3 VBG O2 Saturation VBG Base Excess Sodium Potassium Chloride Carbon Dioxide Anion Gap BUN Creatinine Estim Creat Clear Calc Estimated GFR POC Glucose 208 H 202 H Random Glucose Calcium Phosphorus Albumin Free [place] LC, Quant Free Lambda LC, Quant Free [place]/Lambda Ratio 01/12/21 01/12/21 05:20 05:22 WBC RBC Hgb Hct MCV MCH MCHC RDW Plt Count MPV Absolute Nucleated RBC Nucleated RBC % (auto) VBG pH 7.34 VBG pCO2 37 VBG pO2 52 VBG HCO3 20 L VBG O2 Saturation 76.0 VBG Base Excess -4.7 Sodium 145 Potassium 4.1 Chloride 114 H Carbon Dioxide 20 L Anion Gap 15 BUN 69 H Creatinine 2.63 H Estim Creat Clear Calc 49.5 Estimated GFR 26 POC Glucose Random Glucose 235 H Calcium 7.8 L Phosphorus 6.4 H Albumin 2.5 L D Free [place] LC, Quant Free [place]ambda LC, Quant Free [place]/Lambda Ratio Microbiology Microbiology Results: Microbiology 01/07/21 05:25 Blood - Venous Blood Culture - Final No growth after 5 days. 01/07/21 05:18 Blood - Venous Blood Culture - Final No growth after 5 days. 01/09/21 21:01 Sputum - Suctioned Gram Stain - Final 01/09/21 21:01 Sputum - Suctioned Sputum Culture - Preliminary Normal so far. Assessment & Plan Assessment and plan (1) Acute respiratory distress syndrome (ARDS) due to COVID-19 virus: Status: Acute Assessment and Plan: Assessment: 45-year-old gentleman with multiple medical issues admitted with acute hypoxic respiratory failure secondary to COVID-19 ARDS further complicated by acute on chronic renal failure on the background of peripheral vascular disease and hepatitis-C cirrhosis. we are asked to see for KIRILL and CKD he has acute COVID pneumonia he is followed by Dr Wilder cee cr 2.6 longstanding uncontrolled diabetes, uncontrolled hypertension, status post right BKA, left AKA, osteomyelitis right shoulder [place] [facility] [place], dysarthria, left upper extremity weakness. MRI with multiple acute right MCA infarcts, MRA head and neck, no major neck artery stenosis, but had multiple intracerebral stenosis. Plan: i suspect he has COVID related KIRILL his creat is improved but not to baseline we will follow closely (2) Acute on chronic kidney failure: Status: Acute (3) Acute respiratory failure with hypoxia: Status: Acute (4) Hepatitis C, chronic: Status: Acute (5) Cirrhosis: Status: Acute (6) Diabetes: Status: Acute (7) Hypertension: Status: Acute Procedures Date of Service Date of Service: 01/12/21 Progress Note: Quality Stroke Does the patient have a stroke diagnosis?: No
[2021-01-12 08:20] LABS: Glucose, Whole Blood 189 mg/dL (60-115)
[2021-01-12] MEDS: Cholecalciferol (Vitamin D3) 25 MCG TABLET 50 MCG OG-TUBE (08:43)
[2021-01-12] MEDS: Chlorhexidine Gluc Oral Rinse 15 ML MOUTHWASH BUCCAL ×3 (08:43→21:26)
[2021-01-12] MEDS: QUEtiapine Fumarate 50 MG TABLET PO (08:43)
[2021-01-12] MEDS: Sodium Zirconium Cyclosilicate 10 GM POWD.PACK OG-TUBE ×3 (08:43→23:22)
[2021-01-12] MEDS: Losartan Potassium 50 MG TABLET OG-TUBE ×2 (08:43→10:32)
[2021-01-12] MEDS: Thiamine HCL 200 MG/2 ML VIAL IVPUSH ×2 (08:44→21:27)
[2021-01-12] MEDS: methylPREDNISolone Sod Succ 125 MG/2 ML VIAL 80 MG IVPUSH ×2 (08:44→21:26)
[2021-01-12] MEDS: LORazepam 2 MG/ML VIAL IVPUSH ×2 (10:03→14:03)
--- NOTE | 2021-01-12 10:26 | MHC.CLN ---
F/U PT REMAINS INTUBATED AND SEDATED PT RECEIVING GLUCERNA AT MAX GOAL RATE 30CC/HR WITH 30CC PROSOURCE Q DAY AND 240CC FREE WATER FLSUHES Q 6HRS PROVIDES 780KCALS (1827KCALS WITH SEDATION; 25KCALS/KG BASED ON IBW), 45G PROTEIN (.6G/KG), 1574CC TOTAL WATER FROM FORMULA AND FLUSHES DISCUSSED WITH MD DURING ROUNDS RECOMMEND INCREASING 30CC PROSOURCE BID TO PROVIDE 30G PROTEIN, 120KCALS MONITOR TOLERANCE, RESIDUALS AND LYTES
[2021-01-12] MEDS: Lactulose 20 GM/30 ML SOLUTION OG-TUBE ×2 (10:32→21:26)
[2021-01-12] MEDS: QUEtiapine Fumarate 50 MG TABLET OG-TUBE (10:33)
[2021-01-12 11:47] LABS: Glucose, Whole Blood 216 mg/dL (60-115)
[2021-01-12] MEDS: amLODIPine Besylate 5 MG TABLET OG-TUBE (12:44)
[2021-01-12] MEDS: Labetalol HCL 100 MG/20 ML VIAL 10 MG IVPUSH (14:17)
[2021-01-12] MEDS: Labetalol HCL 100 MG TABLET OG-TUBE (14:39)
[2021-01-12 15:27] LABS: Glucose, Whole Blood 225 mg/dL (60-115)
--- NOTE | 2021-01-12 15:54 | MHC.CM.PN ---
Pt remains in ICU on ventilatory support secondary to COVID: FiO2 at 55%: Plan for day is to attempt reduction in FiO2. Call placed to pts mother/HCP Nancy and dtr Elizabeth to give updates. D/C plans remain undetermined at this time - will depend on pt's ability to vent wean and participate in functional ability assessment: PT/OT. CM to follow.
--- NOTE | 2021-01-12 17:20 | PC.NURSE ---
S/E Afebrile, WBC 8.1, BC neg x2 Sedated on Propofol & Fentanyl gtts along with PRN Ativan Weak C&G, no pain response, agitated with care, pupils 3mm PERRLA Seroquel increased from 50 to 100mg Sinus, HR 80-90's, no ectopy SBP trending 180-210's - Cozaar increased from 50 to 100mg, Norvasc 5mg added on - no improvements Labetalol 10mg IVP administered with good effect - current BP 156/73 - Labetalol 100mg ordered and administered R IJ TLC patent, dressing changed 01/11 LS clear to dim, scant inline secretions ETT #8, 26cm @ lip ; vent settings unchanged AC 16/520/12/55%, Fio2
--- NOTE | 2021-01-12 17:25 | PC.NURSE ---
S/E Afebrile, WBC 8.1, BC neg x2 Sedated on Propofol & Fentanyl gtts along with PRN Ativan Weak C&G, no pain response, agitated with care, pupils 3mm PERRLA Seroquel increased from 50 to 100mg Sinus, HR 80-90's, no ectopy SBP trending 180-210's - Cozaar increased from 50 to 100mg & Norvasc 5mg added on w/ no effect Labetalol 10mg IVP administered with good effect - current BP 156/73 - Labetalol 100mg ordered and administered R IJ TLC patent, dressing changed 01/11 LS clear to dim, scant inline secretions ETT #8, 26cm @ lip ; vent settings unchanged AC 16/520/12/55%, spo2 90-91% Continued on Ivermectin & Solumedrol Abdomen large, obese, soft ; faint to hypoactive BS Last BM 01/08 - Lactulose increased from daily to BID ; passing flatus H&H 7.8/25.1 - MD aware - pending OBS collection Glucerna maxed at 30cc/hr w/ 240 water flushes q6 ; 1600 residual 200cc - MD aware Prosource changed from daily to BID - AM doses administered Insulin gtt continued per MD order - currently at 5u/hr ; POC trending 180-220's [place] patent - total urine output 1205 Bun & Creat 69/2.63 - MD aware No skin integrity concerns, air loss pump & prevlon pad in place Bathed, repo q2hr, barrier cream applied Family updated
--- NOTE | 2021-01-12 17:52 | P.PNCC_ITS ---
Subjective Subjective Date of Service: 01/12/21 Interval History: Mr. Preciado was admitted to ICU on January 07 with acute respiratory failure 2? COVID ARDS, hyperglycemia, KIRILL, and metabolic acidosis. 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 The patient had the Abhay & Abhay COVID vaccine on October 24. Reportedly lives at home with his . His mother is the HCP. HISTORY OF PRESENT ILLNESS: The patient recently returned from a trip to [place] and came to our ED on January 01 with 2 days of cough, chest congestion, and wheezing. Multiple family members had similar symptoms. Additionally, he reported bilateral lower abdominal pain and small amounts of bright red blood per rectum for the prior 2 weeks. In the ED, he tested positive for COVID-19. Sat was 97% on RA. Hemoglobin was noted to be 9.8 compared to a baseline of around 11-12. DDimer and CRP were only mildly elevated. CXR showed NAD. CT of the abdomen and pelvis without contrast showed a 4.5 cm segment of distal transverse colon with circumferential wall thickening and luminal narrowing that could represent either spasm or colonic mass; there was also a masslike density near the ileocecal valve. Also demonstrated were splenomegaly and small upper abdominal varices but no ascites. The lung were clear by my reading; the radiologist read a few questionable small areas of ground-glass opacities. He was admitted and treated with steroids for asthma exaccerebation. His wheezing resolved. DAPT for his stroke was held and his Hb was stable and he had no bleeding. His hematochezia was thought very possibly due to hemorrhoids found on exam. Bec of his COVID status, further GI workup w colonoscopy was deferred, as was GI f/u and treatment for his Hep C. He was discharged home on January 04. On January 07 he represented to the ED in moderate respiratory distress. SpO2 was low 70s on room air, 88% on O2 FM, and 94% on 100% HFNC. Labs were notable for WBC 13, Hb 10.4, BUN/creat were 68/3.1 (from 53/3/0 on 01/04), Bicarb was 13, K was 5.2, gluc was 546, lactate was 3.2, alb was 2.2. Acetone was negative. DDimer was bumped to 1581 (from 506 on 01/03), CRP was up to 14. ABG (on ?100% FiO2) showed 7.32/19/88/-13. CXR showed patchy multifocal opacities in both lungs, c/w COVID. CT abdomen done for f/u of prev CT and bec of lactic acidosis showed the same two equivocal findings in the colon, one at the ileocecal valve region and one in the distal transverse colon ?which require further assessment in the setting of GI bleeding to exclude underlying malignancy.? Hepatic cirrhosis with portal venous hypertension as evidenced by splenomegaly and small upper abdominal varices was again demonstrated, w no significant ascites. The lung cuts showed severe bilat patchy opacities suggestive of infectious/inflammatory process. The patient was admitted to ICU. He was treated with dexamethasone, a bicarb drip, and insulin drip. U/o and renal fxn improved slightly and his lactic and metabolic acidoses resolved. However oxygenation deteriorated, and he required tracheal intubation on 01/08, along with NMB. We were able to d/c the Nimbex the next day and get his FiO2 down as low as 60%. Echo showed moderate LVH, normal LV size and fxn, normal RV size, normal RVSP, and IVC measured 1.9cm w about 50% insp collapse. We started him on ivermectin, vit D, and thimaine, upped his steroids to Solumedrol 80mg bid, and gave gentle volume resusc. On 01/10 we started him on losartan bec of HTN. Over the last few days, his renal indices have slowly improved. We?ve been able to get his FiO2 down to 50%. And he remains easily arousable from his sedation, altho noninteractive. This morning, he?s on propofol 50ug and fentanyl 200 ug, along w insulin @ 5u/hr. He arouses easily, but is noninteractive. HR 71, BP this morning was up to 200/90. We upped his losartan to 100 mg daily, and gave him amlodipine 5mg, with no improvement in his BP. After 10mg IV labetolol, the BP came down to 154/78. So I started him on labetolol 100mg bid, in addition to the losartan. HR 80?s, SR. On AC 16/520/55%/+12, RR is 19, Ve 9.7L, PIP 27cm, ETCO2 35mm, Sat 94%. CVBG this morning showed 7.34/37/-4. He?s been afebrile thruout. No JVD at 30?. Normal exp phase. No significant edema. Last blood smear in his stool was back on 01/08. Has not had a stool for occult blood testing yet. LABORATORY DATA: As below. Notably, Hb steady at 7.8. BUN/creat steady at 69/2.6 (baseline is hard to assess, but in prob in the range of 30?/2.6). Bicarb steady. Phos is rising slowly, up to 6.4. K is down to 4.1 on the LoKelma. MICROBIOLOGY: Sputum Gram stain 01/09 showed 3+ polys, 1+ Gram-positive cocci. Culture negative. Urinalysis 01/09 was negative. 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 The patient had the Abhay & Abhay COVID vaccine on October 24. 1. Bilat pulmon infiltrates 2? COVID pneumonia. Symptom onset date approx. December 30. It?s possible that the J&J vaccine is preventing further deterioration (e.g. in oxygenation and renal fxn). Started on ivermectin, Solu-Medrol 80mg bid, vit D, and thiamine on 01/09. Following COVID biomarkers. 2. ARDS 2? above. Compliance and A-a gradient are (relatively) good. No real improvement in his oxygenation over last day or two. 3. Hypoxemic respiratory failure. He?s not as hypoxemic as I would have expected, giving his CT picture. 4. Acute on chronic kidney injury. Likely 2? COVID. Fortunately, seems to be improving rather than deteriorating. The echo was suggestive of fluid responsiv eness, and his renal indices improved and he is making excellent urine after volume challenge. Stopped his crystalloid infusion yesterday and switched him to free water via G tube. Follow renal indices daily. 5. GI. Slow Hb loss of still unclear etiol. Bloody smears would suggest hemorrhoids. Waiting for hemeoccult. Hb has been stable last 3 days. At this point, the situation is such that I would not put him on ASA, and would not give him more than 5000 u TID heparin for DVT prophylaxis. 6. ID. No evidence of bacterial infection at this point, no reason to consider antibiotics. 7. Hyperglycemia. Stabilized now. Continuing the insulin drip. 8. Metabolic. Started on resin binder to control his potassium. Nonanion gap metabolic acidosis, presumably from renal dz, is stable. Treating hypernatremia with enteral free water. 9. Nutrition. Started glucerna tube feeds, with added protein supplement. I spoke to the patient?s mother, Nancy Rahman ([phone]), on January 10, and updated her on condition and prognosis. I cautioned her that most patients requiring mechanical ventilation do not survive, but with his young age and his improving renal indices, there is reason to have hope. Critical care time: 50 min. Critical Care Time (minutes): 50 Physical Exam Vital Signs: Vital Signs: Last Vital Signs Temp 98.6 F 01/12/21 17:00 Pulse 88 01/12/21 17:00 Resp 19 01/12/21 17:00 BP 156/73 H 01/12/21 17:00 Pulse Ox 90 L 01/12/21 17:00 Oxygen Flow Rate 100 01/07/21 05:11 Body Mass Index 33.4 Objective Data Labs CBC & Chem 7: 01/12/21 05:20 01/12/21 05:20 Labs: Laboratory Results - last 24 hr 01/10/21 01/11/21 01/11/21 10:05 18:13 21:43 WBC RBC Hgb Hct MCV MCH MCHC RDW Plt Count MPV Absolute Nucleated RBC Nucleated RBC % (auto) VBG pH VBG pCO2 VBG pO2 VBG HCO3 VBG O2 Saturation VBG Base Excess Sodium Potassium Chloride Carbon Dioxide Anion Gap BUN Creatinine Estim Creat Clear Calc Estimated GFR POC Glucose 157 H 65 Random Glucose Calcium Phosphorus Albumin Free [place] LC, Quant 127.6 H Free Lambda LC, Quant 145.7 H Free [place]/Lambda Ratio 0.88 01/11/21 01/11/21 01/12/21 22:41 23:19 01:29 WBC RBC Hgb Hct MCV MCH MCHC RDW Plt Count MPV Absolute Nucleated RBC Nucleated RBC % (auto) VBG pH VBG pCO2 VBG pO2 VBG HCO3 VBG O2 Saturation VBG Base Excess Sodium Potassium Chloride Carbon Dioxide Anion Gap BUN Creatinine Estim Creat Clear Calc Estimated GFR POC Glucose 82 111 208 H Random Glucose Calcium Phosphorus Albumin Free [place] LC, Quant Free Lambda LC, Quant Free [place]/Lambda Ratio 01/12/21 01/12/21 01/12/21 03:48 05:20 05:20 WBC 8.1 RBC 2.84 L Hgb 7.8 L Hct 25.1 L MCV 88.4 MCH 27.5 MCHC 31.1 RDW 15.0 Plt Count 148 L MPV 12.5 H Absolute Nucleated RBC 0.000 Nucleated RBC % (auto) 0.0 VBG pH VBG pCO2 VBG pO2 VBG HCO3 VBG O2 Saturation VBG Base Excess Sodium 145 Potassium 4.1 Chloride 114 H Carbon Dioxide 20 L Anion Gap 15 BUN 69 H Creatinine 2.63 H Estim Creat Clear Calc 49.5 Estimated GFR 26 POC Glucose 202 H Random Glucose 235 H Calcium 7.8 L Phosphorus 6.4 H Albumin 2.5 L D Free [place] LC, Quant Free Lambda LC, Quant Free [place]/Lambda Ratio 01/12/21 01/12/21 01/12/21 05:22 08:16 11:17 WBC RBC Hgb Hct MCV MCH MCHC RDW Plt Count MPV Absolute Nucleated RBC Nucleated RBC % (auto) VBG pH 7.34 VBG pCO2 37 VBG pO2 52 VBG HCO3 20 L VBG O2 Saturation 76.0 VBG Base Excess -4.7 Sodium Potassium Chloride Carbon Dioxide Anion Gap BUN Creatinine Estim Creat Clear Calc Estimated GFR POC Glucose 189 H 216 H Random Glucose Calcium Phosphorus Albumin Free [place] LC, Quant Free Lambda LC, Quant Free [place]/Lambda Ratio 01/12/21 15:23 WBC RBC Hgb Hct MCV MCH MCHC RDW Plt Count MPV Absolute Nucleated RBC Nucleated RBC % (auto) VBG pH VBG pCO2 VBG pO2 VBG HCO3 VBG O2 Saturation VBG Base Excess Sodium Potassium Chloride Carbon Dioxide Anion Gap BUN Creatinine Estim Creat Clear Calc Estimated GFR POC Glucose 225 H Random Glucose Calcium Phosphorus Albumin Free [place] LC, Quant Free Lambda LC, Quant Free [place]/Lambda Ratio Microbiology Microbiology Results: Microbiology 01/09/21 21:01 Sputum - Suctioned Gram Stain - Final 01/09/21 21:01 Sputum - Suctioned Sputum Culture - Preliminary Normal so far. 01/07/21 05:25 Blood - Venous Blood Culture - Final No growth after 5 days. 01/07/21 05:18 Blood - Venous Blood Culture - Final No growth after 5 days. Quality Stroke Does the patient have a stroke diagnosis?: No VTE Prior VTE?: No VTE Risk Level:: Medical - moderate - high VTE Device Contraindication: Treatment Not Indicated VTE Drug Contraindication: N/A - Med Ordered
[2021-01-12 19:48] LABS: Glucose, Whole Blood 167 mg/dL (60-115)
[2021-01-12] MEDS: QUEtiapine Fumarate 100 MG TABLET OG-TUBE (21:27)
[2021-01-12 23:38] LABS: Glucose, Whole Blood 122 mg/dL (60-115)
[2021-01-13] VITALS (40 sets, daily range): BP systolic 125–217; BP diastolic 64–102; PULSE 80–97; RESP 11–31; TEMP 36.6–37.5; O2SAT 86–99; BMI 35.0
[2021-01-13] MEDS: fentaNYL citrate/NS 1,000 MCG/100 ML PLAST..BAG 20 MCG IVCONT ×5 (00:17→19:41)
[2021-01-13] MEDS: Labetalol HCL 100 MG/20 ML VIAL 10 MG IVPUSH ×3 (01:14→16:15)
[2021-01-13] MEDS: Labetalol HCL 100 MG TABLET OG-TUBE ×2 (01:15→13:53)
[2021-01-13] MEDS: propofoL 1,000 MG/100 ML VIAL 39.66 MG IVCONT ×6 (01:50→13:53)
[2021-01-13 03:41] LABS: Glucose, Whole Blood 183 mg/dL (60-115)
[2021-01-13] MEDS: Heparin Sodium,Porcine 5,000 UNIT/ML VIAL 5000 UNIT SUBCUT ×3 (04:16→19:42)
[2021-01-13] MEDS: Insulin Regular/NS 100 UNIT/100 ML PLAST..BAG IVCONT (05:14)
[2021-01-13 05:33] LABS: VBG Base Excess -4.4 mmol/L; VBG HCO3 21 mmol/L (22-26); VBG pCO2 43 mmHg; VBG pO2 60 mmHg
[2021-01-13 05:55] LABS: Hemoglobin 7.6 g/dl (14.0-18.0); Mean Corpuscular HGB Conc 31.7 g/dl (31.0-36.0); Mean Corpuscular Hemoglobin 27.6 pg (27.0-33.0); Mean Corpuscular Volume 87.3 fL (80-98); Mean Platelet Volume 12.5 fL (9.4-12.4); Platelet Count 141 X10*3/uL (160-400); Red Blood Count 2.75 X10*6/uL (4.60-5.80); Red Cell Distribution Width 14.9 % (11.0-16.0); White Blood Count 7.9 X10*3/uL (4.8-10.8)
[2021-01-13 06:06] LABS: D Dimer 992 NG/ML
[2021-01-13 06:18] LABS: Anion Gap 17 (12-20); Blood Urea Nitrogen 69 mg/dL (9-16); C Reactive Protein 5.08 mg/dL (< or = 0.50); Calcium 8.2 mg/dL (8.4-10.2); Carbon Dioxide 19 mmol/L (22-29); Chloride 112 mmol/L (96-108); Creatinine Clr Calc Pharmacy 50.3; Estimated Glomerular Filt Rate 28; Glucose Random 222 mg/dL (60-115); Magnesium 2.5 mg/dL (1.6-2.6); Phosphorus 7.1 mg/dL (2.7-4.5); Potassium 3.9 mmol/L (3.3-5.1); Sodium 144 mmol/L (135-145)
[2021-01-13 06:30] LABS: Venous Blood Gas Refer to POC result
[2021-01-13 06:39] LABS: Ferritin 186 ng/mL (20-250)
[2021-01-13 07:31] LABS: Glucose, Whole Blood 183 mg/dL (60-115)
[2021-01-13] MEDS: methylPREDNISolone Sod Succ 125 MG/2 ML VIAL 80 MG IVPUSH ×2 (07:58→21:00)
[2021-01-13] MEDS: Thiamine HCL 200 MG/2 ML VIAL IVPUSH ×2 (07:58→21:00)
[2021-01-13] MEDS: Cholecalciferol (Vitamin D3) 25 MCG TABLET 50 MCG OG-TUBE (07:59)
[2021-01-13] MEDS: Chlorhexidine Gluc Oral Rinse 15 ML MOUTHWASH BUCCAL ×3 (07:59→21:00)
[2021-01-13] MEDS: Lactulose 20 GM/30 ML SOLUTION OG-TUBE ×2 (07:59→21:00)
[2021-01-13] MEDS: QUEtiapine Fumarate 100 MG TABLET OG-TUBE ×2 (07:59→21:00)
[2021-01-13] MEDS: Losartan Potassium 50 MG TABLET 100 MG OG-TUBE (07:59)
[2021-01-13] MEDS: Sennosides/Docusate Sodium TABLET 1 TAB OG-TUBE (08:33)
[2021-01-13] MEDS: LORazepam 2 MG/ML VIAL IVPUSH (09:10)
[2021-01-13] MEDS: Insulin Glargine,Hum.rec.anlog 100 UNIT/ML 10 ML VIAL 30 UNIT SUBCUT ×2 (09:50→21:01)
--- NOTE | 2021-01-13 10:33 | HE.PHANOTE ---
Pharmacy Note - Insulin Management The plan is to add BID insulin glargine and stop the insulin infusion (although the order will not be discontinued at this time). No addition of correction scale subcutaneous insulin to be added at this time. For any glucose excursions the plan will be to utilize IV regular insulin for the next 24 hours then re-evaluate the regimen. ~Julianna Aviles, PharmD, BCPS, BCCCP x [phone]
--- NOTE | 2021-01-13 10:40 | PM.PNNEP ---
Subjective Subjective Date of Service: 01/13/21 Interval history: Mr. Preciado was admitted to ICU on January 07 with acute respiratory failure 2? COVID ARDS, hyperglycemia, KIRILL, and metabolic acidosis. 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 The patient had the Abhay & Abhay COVID vaccine on October 24. Reportedly lives at home with his . His mother is the HCP. HISTORY OF PRESENT ILLNESS: The patient recently returned from a trip to [place] and came to our ED on January 01 with 2 days of cough, chest congestion, and wheezing. Multiple family members had similar symptoms. Additionally, he reported bilateral lower abdominal pain and small amounts of bright red blood per rectum for the prior 2 weeks. In the ED, he tested positive for COVID-19. Sat was 97% on RA. Hemoglobin was noted to be 9.8 compared to a baseline of around 11-12. DDimer and CRP were only mildly elevated. CXR showed NAD. CT of the abdomen and pelvis without contrast showed a 4.5 cm segment of distal transverse colon with circumferential wall thickening and luminal narrowing that could represent either spasm or colonic mass; there was also a masslike density near the ileocecal valve. Also demonstrated were splenomegaly and small upper abdominal varices but no ascites. The lung were clear by my reading; the radiologist read a few questionable small areas of ground-glass opacities. He was admitted and treated with steroids for asthma exaccerebation. His wheezing resolved. DAPT for his stroke was held and his Hb was stable and he had no bleeding. His hematochezia was thought very possibly due to hemorrhoids found on exam. Bec of his COVID status, further GI workup w colonoscopy was deferred, as was GI f/u and treatment for his Hep C. He was discharged home on January 04. On January 07 he represented to the ED in moderate respiratory distress. SpO2 was low 70s on room air, 88% on O2 FM, and 94% on 100% HFNC. Labs were notable for WBC 13, Hb 10.4, BUN/creat were 68/3.1 (from 53/3/0 on 01/04), Bicarb was 13, K was 5.2, gluc was 546, lactate was 3.2, alb was 2.2. Acetone was negative. DDimer was bumped to 1581 (from 506 on 01/03), CRP was up to 14. ABG (on ?100% FiO2) showed 7.32/19/88/-13. LABORATORY DATA: As below. Notably, Hb steady at 7.8. creat is 2.3 close to his baseline. Bicarb steady. Phos is rising slowly, up to 7.1. K is down to 4.1 on the LoKelma. MICROBIOLOGY: Sputum Gram stain 01/09 showed 3+ polys, 1+ Gram-positive cocci. Culture negative. Urinalysis 01/09 was negative. 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 KIRILL slowly improving PO4 is high discussed low po4 feeds and will add renagel binder Physical Exam Vital Signs: Vital Signs: Last Vital Signs Temp 97.9 F 01/13/21 10:00 Pulse 81 01/13/21 10:00 Resp 13 01/13/21 10:00 BP 171/77 H 01/13/21 10:00 Pulse Ox 96 01/13/21 10:00 Oxygen Flow Rate 100 01/07/21 05:11 Body Mass Index 35.0 Const: General: no acute distress, alert, awake and anxious Nutritional Appearance: obese Eyes: Sclerae: sclerae normal EOM: EOMs intact bilaterally Neck: Neck: Yes no lymphadenopathy, Yes trachea midline and Yes supple Resp: Effort & Inspection: normal respiratory effort and no respiratory distress ( On high-flow nasal cannula and non-rebreather) Auscultation: crackles ( diffuse bilateral) Cardio: Rate: tachycardic Rhythm: regular rhythm Heart sounds: no gallops, no murmurs and no rubs GI: Palpation (GI): Soft to palpation and Other GI palpation findings present ( Nontender) Auscultation: normal bowel sounds Extrem: General: No clubbing, No cyanosis and Yes other ( bilateral BKA) Objective Data Labs CBC & Chem 7: 01/13/21 05:20 01/13/21 05:20 Labs: Laboratory Results - last 24 hr 01/12/21 01/12/21 01/12/21 11:17 15:23 19:33 WBC RBC Hgb Hct MCV MCH MCHC RDW Plt Count MPV Absolute Nucleated RBC Nucleated RBC % (auto) D-Dimer VBG pH VBG pCO2 VBG pO2 VBG HCO3 VBG O2 Saturation VBG Base Excess Sodium Potassium Chloride Carbon Dioxide Anion Gap BUN Creatinine Estim Creat Clear Calc Estimated GFR POC Glucose 216 H 225 H 167 H Random Glucose Lactic Acid Calcium Phosphorus Magnesium Ferritin C-Reactive Protein 01/12/21 01/13/21 01/13/21 23:26 03:25 05:20 WBC 7.9 RBC 2.75 L Hgb 7.6 L Hct 24.0 L MCV 87.3 MCH 27.6 MCHC 31.7 RDW 14.9 Plt Count 141 L MPV 12.5 H Absolute Nucleated RBC 0.000 Nucleated RBC % (auto) 0.0 D-Dimer VBG pH VBG pCO2 VBG pO2 VBG HCO3 VBG O2 Saturation VBG Base Excess Sodium Potassium Chloride Carbon Dioxide Anion Gap BUN Creatinine Estim Creat Clear Calc Estimated GFR POC Glucose 122 H 183 H Random Glucose Lactic Acid Calcium Phosphorus Magnesium Ferritin C-Reactive Protein 01/13/21 01/13/21 01/13/21 05:20 05:20 05:20 WBC RBC Hgb Hct MCV MCH MCHC RDW Plt Count MPV Absolute Nucleated RBC Nucleated RBC % (auto) D-Dimer 992 VBG pH VBG pCO2 VBG pO2 VBG HCO3 VBG O2 Saturation VBG Base Excess Sodium 144 Potassium 3.9 Chloride 112 H Carbon Dioxide 19 L Anion Gap 17 BUN 69 H Creatinine 2.53 H Estim Creat Clear Calc 50.3 Estimated GFR 28 POC Glucose Random Glucose 222 H Lactic Acid 1.0 Calcium 8.2 L Phosphorus 7.1 H Magnesium 2.5 Ferritin 186 C-Reactive Protein 5.08 H 01/13/21 01/13/21 05:25 07:27 WBC RBC Hgb Hct MCV MCH MCHC RDW Plt Count MPV Absolute Nucleated RBC Nucleated RBC % (auto) D-Dimer VBG pH 7.30 L VBG pCO2 43 VBG pO2 60 VBG HCO3 21 L VBG O2 Saturation 83.0 VBG Base Excess -4.4 Sodium Potassium Chloride Carbon Dioxide Anion Gap BUN Creatinine Estim Creat Clear Calc Estimated GFR POC Glucose 183 H Random Glucose Lactic Acid Calcium Phosphorus Magnesium Ferritin C-Reactive Protein Microbiology Microbiology Results: Microbiology 01/09/21 21:01 Sputum - Suctioned Gram Stain - Final 01/09/21 21:01 Sputum - Suctioned Sputum Culture - Preliminary Normal so far. 01/07/21 05:25 Blood - Venous Blood Culture - Final No growth after 5 days. 01/07/21 05:18 Blood - Venous Blood Culture - Final No growth after 5 days. Assessment & Plan Assessment and plan (1) Acute respiratory distress syndrome (ARDS) due to COVID-19 virus: Status: Acute Assessment and Plan: Assessment: 45-year-old gentleman with multiple medical issues admitted with acute hypoxic respiratory failure secondary to COVID-19 ARDS further complicated by acute on chronic renal failure on the background of peripheral vascular disease and hepatitis-C cirrhosis. we are asked to see for KIRILL and CKD he has acute COVID pneumonia he is followed by Dr Hdz baseline cr 2.6 longstanding uncontrolled diabetes, uncontrolled hypertension, status post right BKA, left AKA, osteomyelitis right shoulder presented recently to [facility] [place], [place] with headache, dysarthria, left upper extremity weakness. MRI with multiple acute right MCA infarcts, MRA head and neck, no major neck artery stenosis, but had multiple intracerebral stenosis. Plan: i suspect he has COVID related KIRILL his creat is improved but not to baseline we will follow closely (2) Acute on chronic kidney failure: Status: Acute (3) Acute respiratory failure with hypoxia: Status: Acute (4) Hepatitis C, chronic: Status: Acute (5) Cirrhosis: Status: Acute (6) Diabetes: Status: Acute (7) Hypertension: Status: Acute Time Spent With Patient Time: Total time spent is greater than 50% in coordination of care (as documented) at patient's floor/unit and/or counseling patient: Procedures Date of Service Date of Service: 01/13/21 Progress Note: Quality Stroke Does the patient have a stroke diagnosis?: No
--- NOTE | 2021-01-13 10:49 | MHC.CM.PN ---
Pt continues on vent support secondary to COVID. Plans for the day include reduction of FiO2 and possible conversion of IV insulin gtt to Lantus. Calls placed to HCP Nancy (pts mom) and his dtr Elizabeth to update. D/C plans remain to be finalized
[2021-01-13] MEDS: Sevelamer Carbonate Powder 800 MG POWD.PACK 1600 MG PO ×2 (11:59→17:14)
[2021-01-13 12:00] LABS: Glucose, Whole Blood 295 mg/dL (60-115)
--- NOTE | 2021-01-13 13:28 | MHC.CLN ---
F/U PT REMAINS INTUBATED AND SEDATED DISCUSSED WITH PROCESS IMPROVEMENT ENGINEER AND RENAL MD NOTED ELEVATED PHOS RECOMMEND CHANGE TF TO NEPRO AT MAX GOAL RATE 15CC/HR WITH 30CC PROSOURCE TID VIA OGT AND 300CC FREE WATER FLUSHES Q SHIFT TO PROVIDE 828KCALS (1875KCALS TOTAL WITH SEDATION; 25KCALS/KG BASED ON IBW), 74G PROTEIN (1.0G/KG), 1162CC TOTAL WATER FROM FORMULA AND FLUSHES (16CC/KG BASED ON IBW) MONITOR TOLERANCE, RESIDUALS AND LYTES
[2021-01-13] MEDS: dexmedeTOMIDidine HCL/NS 400 MCG/100 ML INFUS..BTL 33.05 MCG IVCONT (13:29)
[2021-01-13 14:01] LABS: OBS1 NEGATIVE (NEGATIVE)
[2021-01-13 14:02] LABS: OBS Int Ctl Valid YES
[2021-01-13] MEDS: Labetalol HCL 200 MG TABLET NG-TUBE (14:38)
[2021-01-13 15:05] LABS: Glucose, Whole Blood 286 mg/dL (60-115)
[2021-01-13] MEDS: propofoL 1,000 MG/100 ML VIAL 23.8 MG IVCONT ×3 (16:11→23:38)
[2021-01-13] MEDS: Labetalol HCL 100 MG/20 ML VIAL 20 MG IVPUSH (16:41)
[2021-01-13] MEDS: niCARdipine HCL 25 MG in 0.9 % Sodium Chloride 250 ML 52 MG IVCONT (17:16)
[2021-01-13 17:46] LABS: Glucose, Whole Blood 232 mg/dL (60-115)
[2021-01-13] MEDS: dexmedeTOMIDidine HCL/NS 400 MCG/100 ML INFUS..BTL 16.53 MCG IVCONT ×2 (17:51→23:38)
--- NOTE | 2021-01-13 17:59 | PC.NURSE ---
Temp 99.7, WBC 7.9 Absent C&G, no pain response, pupils 2mm sluggish Continued on Propofol gtt, Fentanyl gtt, and restarted on Precedex gtt for vent compliance Sinus, HR 80-90's, no ectopy R IJ TLC patent, dressing C/D/I +1 pitting edema bilateral hands SBP trending 190-200's - continued on Cozaar & Labetalol OGT Labetalol IVP administered x3 w/o effect Started on Cardene gtt at 1730 - BP down to 179/85 LS dim throughout, scant thick cream inline secretions #8 ETT, ETT advanced per MD by RT from 24cm to 26cm CXR obtained - see report Vent settings changed by MD to PS 5, PEEP 10, Fio2 increased to 70% TV 580-610, RR 20, spo2 94% Invermectin completed, continued on solumedrol Abdomen large, hypoactive to faint BS Continued on lactulose BID & PRN senokot administered Small size liquid BM - stool obtained - negative for blood Phos 7.1 - Tube feeds changed to Nephro max 15cc/hr, 300cc water flushes, Prosource increased to TID Residuals 290cc and feeds on hold - next check at 1999 Continued on Insulin gtt per MD titration, POC's trending 230-280's ; started on Lantus BID [place] patent, total urine output 1500cc, yellow ; Bun & Creat 69/2.53 No skin integrity concerns, on airloss bed & prevlon system, repo q2hr, barrier cream applied & bathed Family updated
--- NOTE | 2021-01-13 18:25 | P.PNCC_ITS ---
Subjective Subjective Date of Service: 01/13/21 Interval History: Mr. Preciado was admitted to ICU on January 07 with acute respiratory failure 2? COVID ARDS, hyperglycemia, KIRILL, and metabolic acidosis. 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 The patient had the [employer] COVID vaccine on October 24. Reportedly lives at home with his . His mother is the HCP. HISTORY OF PRESENT ILLNESS: The patient recently returned from a trip to [place] and came to our ED on January 01 with 2 days of cough, chest congestion, and wheezing. Multiple family members had similar symptoms. Additionally, he reported bilateral lower abdominal pain and small amounts of bright red blood per rectum for the prior 2 weeks. In the ED, he tested positive for COVID-19. Sat was 97% on RA. Hemoglobin was noted to be 9.8 compared to a baseline of around 11-12. DDimer and CRP were only mildly elevated. CXR showed NAD. CT of the abdomen and pelvis without contrast showed a 4.5 cm segment of distal transverse colon with circumferential wall thickening and luminal narrowing that could represent either spasm or colonic mass; there was also a masslike density near the ileocecal valve. Also demonstrated were splenomegaly and small upper abdominal varices but no ascites. The lung were clear by my reading; the radiologist read a few questionable small areas of ground-glass opacities. He was admitted and treated with steroids for asthma exaccerebation. His wheezing resolved. DAPT for his stroke was held and his Hb was stable and he had no bleeding. His hematochezia was thought very possibly due to hemorrhoids found on exam. Bec of his COVID status, further GI workup w colonoscopy was deferred, as was GI f/u and treatment for his Hep C. He was discharged home on January 04. HISTORY OF PRESENT ILLNESS: On January 07 he represented to the ED in moderate respiratory distress. SpO2 was low 70s on room air, 88% on O2 FM, and 94% on 100% HFNC. Labs were notable for WBC 13, Hb 10.4, BUN/creat were 68/3.1 (from 53/3/0 on 01/04), Bicarb was 13, K was 5.2, gluc was 546, lactate was 3.2, alb was 2.2. Acetone was negative. DDimer was bumped to 1581 (from 506 on 01/03), CRP was up to 14. ABG (on ?100% FiO2) showed 7.32/19/88/-13. CXR showed patchy multifocal opacities in both lungs, c/w COVID. CT abdomen done for f/u of prev CT and bec of lactic acidosis showed the same two equivocal findings in the colon, one at the ileocecal valve region and one in the distal transverse colon ?which require further assessment in the setting of GI bleeding to exclude underlying malignancy.? Hepatic cirrhosis with portal venous hypertension as evidenced by splenomegaly and small upper abdominal varices was again demonstrated, w no significant ascites. The lung cuts showed severe bilat patchy opacities suggestive of infectious/inflammatory process. The patient was admitted to ICU. He was treated with dexamethasone, a bicarb drip, and insulin drip. U/o and renal fxn improved slightly and his lactic and metabolic acidoses resolved. However oxygenation deteriorated, and he required tracheal intubation on 01/08, along with NMB. We were able to d/c the Nimbex the next day and get his FiO2 down as low as 60%. Echo showed moderate LVH, normal LV size and fxn, normal RV size, normal RVSP, and IVC measured 1.9cm w about 50% insp collapse. We started him on ivermectin, vit D, and thimaine, upped his steroids to Solumedrol 80mg bid, and gave gentle volume resusc. On 01/10 we started him on losartan bec of HTN. Over the last few days, his renal indices have slowly improved. We?ve been able to get his FiO2 down to 50% but not consistently. Last night he had to go back up to 80%. He remains easily arousable from his sedation, altho noninteractive. Today, he was on propofol 50ug and fentanyl 200 ug, along w insulin @ 5u/hr. He arouses easily, even too easily, but is noninteractive. His arousal often leads to ventilator dysynchrony and elevated insp pressures. A CXR done earlier today showed a new small PTX and pneumomediastinum. Bec of the imperative to keep him better sedated in order to reduce his insp pressures, we added low dose Precedex. That sedated him very nicely and significantly improved his spontaneous ventilatory pattern, such that we were able to switch him over to low level PSV. It caused his BP to rise, however, which was refractory to IV labetolol. So we started him on nicardipine. Currently, HR 94, BP on nicardipiine, along w losartan and labetolol is 156/83. On PSV 5/70%/+10, RR is 19, Ve 9.7L, PIP 27cm, ETCO2 35mm, Sat 94%. CVBG this morning showed 7.30/43/-4. He?s been afebrile thruout. No JVD at 30?. He does have very subtle crepitus in his chest apices above the clavicles, bilat. Normal exp phase. No edema. Stool was brown, and negative for occult blood. LABORATORY DATA: As below. Notably, Hb steady. BUN/creat down slightly to 69/2.3 (baseline is hard to assess, but in prob in the range of 30/2.6). Bicarb steady. Phos is rising slowly, now up to 7.1. K is down to 3.9 on the LoKelma. DDimer down significantly to 992. Ferritin and CRP are low and steady. MICROBIOLOGY: Sputum Gram stain 01/09 showed 3+ polys, 1+ Gram-positive cocci. Culture negative. Urinalysis 01/09 was negative. 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 The patient had the [employer] COVID vaccine on October 24. 1. Bilat pulmon infiltrates 2? COVID pneumonia. Symptom onset date approx. December 30. It?s possible that the J&J vaccine is preventing further deterioration (e.g. in oxygenation and renal fxn). Started on ivermectin, Solu-Medrol 80mg bid, vit D, and thiamine on 01/09. No sustained improvement in his oxygenation yet. Following COVID biomarkers and they are down. 2. ARDS 2? above. Compliance is close to normal. No improvement in his oxygenation over last 3 days. 3. Hypoxemic respiratory failure. If it wasn?t for his agitation, he could (theoretically) be extubated to mask CPAP, maybe even HFNC. 4. Pneumothorax/pneumomediastinum. Discussed his films at length with Dr. Allen. Statistically, barotrauma worsens the prognosis. Repeat CXR just taken shows improvement in the PTX and pneumomed. Possibly 2? to the change in ventilatory mode. We?ll repeat the CXR in the morning. 5. Acute on chronic kidney injury. Likely 2? COVID. Fortunately, seems to be improving rather than deteriorating. Switched him to free water via G tube. Following renal indices daily. 6. GI. Slow Hb loss of still unclear etiol. Bloody smears suggested hemorrhoids. Negative hemeoccult suggests no GI bleeding. Hb has been stable last 4 days. At this point, the situation is such that it is prob safe to put him on low dose ASA. I?ll keep him on 5000 u TID heparin for DVT prophylaxis. 6. ID. No evidence of bacterial infection at this point, no reason to consider antibiotics. 7. Hyperglycemia. Stabilized now. We started bid Lantus this morning. We?ll ease him off the insulin drip. 8. Metabolic. Brought his potassium down w LoKelma. Nonanion gap metabolic acidosis, presumably from renal dz, is stable. Treating hypernatremia with enteral free water. Started on phosphate binder. 9. Nutrition. Changed glucerna tube feeds to Nepro bec of the phos, with added protein supplement. I spoke to the patient?s mother, Nancy Rahman ([phone]), on January 10, and updated her on condition and prognosis. I cautioned her that most patients requiring mechanical ventilation do not survive, but with his young age and his improving renal indices, there is reason to have hope. Critical care time: 70 min. Critical Care Time (minutes): 70 Physical Exam Vital Signs: Vital Signs: Last Vital Signs Temp 98.5 F 01/13/21 18:00 Pulse 95 01/13/21 18:23 Resp 20 01/13/21 18:00 BP 179/85 H 01/13/21 18:23 Pulse Ox 95 01/13/21 18:00 Oxygen Flow Rate 100 01/07/21 05:11 Body Mass Index 35.0 Objective Data Labs CBC & Chem 7: 01/13/21 05:20 01/13/21 05:20 Labs: Laboratory Results - last 24 hr 01/12/21 01/12/21 01/13/21 19:33 23:26 03:25 WBC RBC Hgb Hct MCV MCH MCHC RDW Plt Count MPV Absolute Nucleated RBC Nucleated RBC % (auto) D-Dimer VBG pH VBG pCO2 VBG pO2 VBG HCO3 VBG O2 Saturation VBG Base Excess Sodium Potassium Chloride Carbon Dioxide Anion Gap BUN Creatinine Estim Creat Clear Calc Estimated GFR POC Glucose 167 H 122 H 183 H Random Glucose Lactic Acid Calcium Phosphorus Magnesium Ferritin C-Reactive Protein Stool Collect Date Stool Occult Blood Stool 2 Collect Date Stool Occult Blood #2 Stool 3 Collect Date Stool Occult Blood #3 01/13/21 01/13/21 01/13/21 05:20 05:20 05:20 WBC 7.9 RBC 2.75 L Hgb 7.6 L Hct 24.0 L MCV 87.3 MCH 27.6 MCHC 31.7 RDW 14.9 Plt Count 141 L MPV 12.5 H Absolute Nucleated RBC 0.000 Nucleated RBC % (auto) 0.0 D-Dimer 992 VBG pH VBG pCO2 VBG pO2 VBG HCO3 VBG O2 Saturation VBG Base Excess Sodium 144 Potassium 3.9 Chloride 112 H Carbon Dioxide 19 L Anion Gap 17 BUN 69 H Creatinine 2.53 H Estim Creat Clear Calc 50.3 Estimated GFR 28 POC Glucose Random Glucose 222 H Lactic Acid Calcium 8.2 L Phosphorus 7.1 H Magnesium 2.5 Ferritin 186 C-Reactive Protein 5.08 H Stool Collect Date Stool Occult Blood Stool 2 Collect Date Stool Occult Blood #2 Stool 3 Collect Date Stool Occult Blood #3 01/13/21 01/13/21 01/13/21 05:20 05:25 07:27 WBC RBC Hgb Hct MCV MCH MCHC RDW Plt Count MPV Absolute Nucleated RBC Nucleated RBC % (auto) D-Dimer VBG pH 7.30 L VBG pCO2 43 VBG pO2 60 VBG HCO3 21 L VBG O2 Saturation 83.0 VBG Base Excess -4.4 Sodium Potassium Chloride Carbon Dioxide Anion Gap BUN Creatinine Estim Creat Clear Calc Estimated GFR POC Glucose 183 H Random Glucose Lactic Acid 1.0 Calcium Phosphorus Magnesium Ferritin C-Reactive Protein Stool Collect Date Stool Occult Blood Stool 2 Collect Date Stool Occult Blood #2 Stool 3 Collect Date Stool Occult Blood #3 01/13/21 01/13/21 01/13/21 11:52 13:42 14:50 WBC RBC Hgb Hct MCV MCH MCHC RDW Plt Count MPV Absolute Nucleated RBC Nucleated RBC % (auto) D-Dimer VBG pH VBG pCO2 VBG pO2 VBG HCO3 VBG O2 Saturation VBG Base Excess Sodium Potassium Chloride Carbon Dioxide Anion Gap BUN Creatinine Estim Creat Clear Calc Estimated GFR POC Glucose 295 H 286 H Random Glucose Lactic Acid Calcium Phosphorus Magnesium Ferritin C-Reactive Protein Stool Collect Date 01/13/2021 Stool Occult Blood NEGATIVE Stool 2 Collect Date Not Reportable Stool Occult Blood #2 TNP Stool 3 Collect Date Not Reportable Stool Occult Blood #3 TNP 01/13/21 17:40 WBC RBC Hgb Hct MCV MCH MCHC RDW Plt Count MPV Absolute Nucleated RBC Nucleated RBC % (auto) D-Dimer VBG pH VBG pCO2 VBG pO2 VBG HCO3 VBG O2 Saturation VBG Base Excess Sodium Potassium Chloride Carbon Dioxide Anion Gap BUN Creatinine Estim Creat Clear Calc Estimated GFR POC Glucose 232 H Random Glucose Lactic Acid Calcium Phosphorus Magnesium Ferritin C-Reactive Protein Stool Collect Date Stool Occult Blood Stool 2 Collect Date Stool Occult Blood #2 Stool 3 Collect Date Stool Occult Blood #3 Microbiology Microbiology Results: Microbiology 01/09/21 21:01 Sputum - Suctioned Gram Stain - Final 01/09/21 21:01 Sputum - Suctioned Sputum Culture - Preliminary Culture in progress. 01/07/21 05:25 Blood - Venous Blood Culture - Final No growth after 5 days. 01/07/21 05:18 Blood - Venous Blood Culture - Final No growth after 5 days. Quality Stroke Does the patient have a stroke diagnosis?: No VTE Prior VTE?: No VTE Risk Level:: Medical - moderate - high VTE Device Contraindication: Treatment Not Indicated VTE Drug Contraindication: N/A - Med Ordered Critical Care Time Critical Care Time (minutes): 60
[2021-01-13] MEDS: Metoclopramide HCl 10 MG/2 ML VIAL 5 MG IVPUSH ×2 (18:32→23:38)
[2021-01-13] MEDS: Erythromycin Base 250 MG TABLET PO ×2 (19:42→23:39)
[2021-01-13 20:14] LABS: Glucose, Whole Blood 183 mg/dL (60-115)
[2021-01-13] MEDS: Labetalol HCL 100 MG TABLET 300 MG OG-TUBE (21:01)
[2021-01-13] MEDS: niCARdipine HCL 25 MG in 0.9 % Sodium Chloride 250 ML 78 MG IVCONT (21:02)
[2021-01-13 21:33] LABS: Glucose, Whole Blood 169 mg/dL (60-115)
[2021-01-13 22:27] LABS: Glucose, Whole Blood 175 mg/dL (60-115)
[2021-01-14] VITALS (36 sets, daily range): BP systolic 135–171; BP diastolic 57–78; PULSE 86–98; RESP 16–26; TEMP 37.1–37.6; O2SAT 82–95; BMI 36.3
[2021-01-14 00:09] LABS: Glucose, Whole Blood 193 mg/dL (60-115)
[2021-01-14] MEDS: fentaNYL citrate/NS 1,000 MCG/100 ML PLAST..BAG 20 MCG IVCONT ×3 (00:42→10:30)
[2021-01-14 02:20] LABS: Glucose, Whole Blood 192 mg/dL (60-115)
[2021-01-14] MEDS: niCARdipine HCL 25 MG in 0.9 % Sodium Chloride 250 ML 78 MG IVCONT ×6 (03:34→21:06)
[2021-01-14] MEDS: propofoL 1,000 MG/100 ML VIAL 23.8 MG IVCONT ×5 (03:53→18:09)
[2021-01-14] MEDS: Heparin Sodium,Porcine 5,000 UNIT/ML VIAL 5000 UNIT SUBCUT ×3 (03:54→21:07)
[2021-01-14 04:16] LABS: Glucose, Whole Blood 218 mg/dL (60-115)
[2021-01-14] MEDS: Erythromycin Base 250 MG TABLET PO ×3 (05:18→17:05)
[2021-01-14] MEDS: dexmedeTOMIDidine HCL/NS 400 MCG/100 ML INFUS..BTL 16.53 MCG IVCONT ×2 (05:18→10:31)
[2021-01-14] MEDS: Insulin Regular/NS 100 UNIT/100 ML PLAST..BAG IVCONT ×2 (05:22→11:50)
[2021-01-14 05:25] LABS: Hematocrit 25.8 % (42-52); Hemoglobin 8.1 g/dl (14.0-18.0); Mean Corpuscular HGB Conc 31.4 g/dl (31.0-36.0); Mean Corpuscular Hemoglobin 27.5 pg (27.0-33.0); Mean Corpuscular Volume 87.5 fL (80-98); Mean Platelet Volume 12.7 fL (9.4-12.4); Platelet Count 144 X10*3/uL (160-400); Red Blood Count 2.95 X10*6/uL (4.60-5.80); Red Cell Distribution Width 14.8 % (11.0-16.0); White Blood Count 9.8 X10*3/uL (4.8-10.8)
[2021-01-14 05:27] LABS: Venous Blood Gas Refer to POC result
[2021-01-14 05:28] LABS: VBG HCO3 19 mmol/L (22-26); VBG pCO2 33 mmHg; VBG pH 7.37 (7.32-7.43); VBG pO2 124 mmHg
[2021-01-14 05:58] LABS: Lactic Acid 0.8 mmol/L (0.5-2.0)
[2021-01-14 06:00] LABS: Albumin Level 2.7 g/dL (3.5-5.0); Anion Gap 16 (12-20); Blood Urea Nitrogen 74 mg/dL (9-16); Carbon Dioxide 20 mmol/L (22-29); Chloride 113 mmol/L (96-108); Creatinine Clr Calc Pharmacy 51.1; Estimated Glomerular Filt Rate 27; Glucose Random 206 mg/dL (60-115); Magnesium 2.6 mg/dL (1.6-2.6); Phosphorus 6.3 mg/dL (2.7-4.5); Potassium 3.6 mmol/L (3.3-5.1); Sodium 145 mmol/L (135-145)
[2021-01-14 06:30] LABS: Glucose, Whole Blood 185 mg/dL (60-115)
[2021-01-14] MEDS: Albumin Human 25 % 100 ML IV ×2 (07:43→08:47)
[2021-01-14] MEDS: Chlorhexidine Gluc Oral Rinse 15 ML MOUTHWASH BUCCAL ×3 (07:44→21:09)
[2021-01-14] MEDS: Lactulose 20 GM/30 ML SOLUTION OG-TUBE ×2 (07:44→21:09)
[2021-01-14] MEDS: Insulin Glargine,Hum.rec.anlog 100 UNIT/ML 10 ML VIAL 30 UNIT SUBCUT (07:45)
[2021-01-14] MEDS: Thiamine HCL 200 MG/2 ML VIAL IVPUSH ×2 (07:45→21:07)
[2021-01-14] MEDS: methylPREDNISolone Sod Succ 125 MG/2 ML VIAL 80 MG IVPUSH ×2 (07:45→21:05)
[2021-01-14] MEDS: Sevelamer Carbonate Powder 800 MG POWD.PACK 1600 MG PO ×3 (07:46→17:05)
[2021-01-14] MEDS: Losartan Potassium 50 MG TABLET 100 MG OG-TUBE (07:46)
[2021-01-14] MEDS: Cholecalciferol (Vitamin D3) 25 MCG TABLET 50 MCG OG-TUBE (07:47)
[2021-01-14] MEDS: QUEtiapine Fumarate 100 MG TABLET OG-TUBE ×2 (07:47→21:12)
[2021-01-14] MEDS: Labetalol HCL 100 MG TABLET 300 MG OG-TUBE ×2 (07:47→21:12)
[2021-01-14] MEDS: Aspirin 81 MG TAB.CHEW OG-TUBE (07:47)
[2021-01-14 08:22] LABS: Glucose, Whole Blood 172 mg/dL (60-115)
[2021-01-14 10:57] LABS: Glucose, Whole Blood 189 mg/dL (60-115)
[2021-01-14] MEDS: Dextrose 5 % 1,000 ML 75 ML IVCONT ×2 (11:36→23:24)
[2021-01-14] MEDS: Insulin Glargine,Hum.rec.anlog 100 UNIT/ML 10 ML VIAL 20 UNIT SUBCUT (11:43)
[2021-01-14 13:17] LABS: Glucose, Whole Blood 167 mg/dL (60-115)
[2021-01-14] MEDS: dexmedeTOMIDidine HCL/NS 400 MCG/100 ML INFUS..BTL 33.05 MCG IVCONT ×3 (15:01→21:06)
[2021-01-14] MEDS: fentaNYL citrate/NS 1,000 MCG/100 ML PLAST..BAG 10 MCG IVCONT ×2 (15:02→22:13)
--- NOTE | 2021-01-14 15:08 | PM.CCPN ---
Subjective Subjective Date of Service: 01/14/21 Interval History: Mr. Preciado was admitted to ICU on January 07 with acute respiratory failure 2? COVID ARDS, hyperglycemia, KIRILL, and metabolic acidosis. 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 The patient had the [employer] COVID vaccine on October 24. Reportedly lives at home with his . His mother is the HCP. HISTORY OF PRESENT ILLNESS: The patient recently returned from a trip to [place] and came to our ED on January 01 with 2 days of cough, chest congestion, and wheezing. Multiple family members had similar symptoms. Additionally, he reported bilateral lower abdominal pain and small amounts of bright red blood per rectum for the prior 2 weeks. In the ED, he tested positive for COVID-19. Sat was 97% on RA. Hemoglobin was noted to be 9.8 compared to a baseline of around 11-12. DDimer and CRP were only mildly elevated. CXR showed NAD. CT of the abdomen and pelvis without contrast showed a 4.5 cm segment of distal transverse colon with circumferential wall thickening and luminal narrowing that could represent either spasm or colonic mass; there was also a masslike density near the ileocecal valve. Also demonstrated were splenomegaly and small upper abdominal varices but no ascites. The lung were clear by my reading; the radiologist read a few questionable small areas of ground-glass opacities. He was admitted and treated with steroids for asthma exaccerebation. His wheezing resolved. DAPT for his stroke was held and his Hb was stable and he had no bleeding. His hematochezia was thought very possibly due to hemorrhoids found on exam. Bec of his COVID status, further GI workup w colonoscopy was deferred, as was GI f/u and treatment for his Hep C. He was discharged home on January 04. HISTORY OF PRESENT ILLNESS: On January 07 he represented to the ED in moderate respiratory distress. SpO2 was low 70s on room air, 88% on O2 FM, and 94% on 100% HFNC. Labs were notable for WBC 13, Hb 10.4, BUN/creat were 68/3.1 (from 53/3/0 on 01/04), Bicarb was 13, K was 5.2, gluc was 546, lactate was 3.2, alb was 2.2. Acetone was negative. DDimer was bumped to 1581 (from 506 on 01/03), CRP was up to 14. ABG (on ?100% FiO2) showed 7.32/19/88/-13. CXR showed patchy multifocal opacities in both lungs, c/w COVID. CT abdomen done for f/u of prev CT and bec of lactic acidosis showed the same two equivocal findings in the colon, one at the ileocecal valve region and one in the distal transverse colon ?which require further assessment in the setting of GI bleeding to exclude underlying malignancy.? Hepatic cirrhosis with portal venous hypertension as evidenced by splenomegaly and small upper abdominal varices was again demonstrated, w no significant ascites. The lung cuts showed severe bilat patchy opacities suggestive of infectious/inflammatory process. The patient was admitted to ICU. He was treated with dexamethasone, a bicarb drip, and insulin drip. U/o and renal fxn improved slightly and his lactic and metabolic acidoses resolved. However oxygenation deteriorated, and he required tracheal intubation on 01/08, along with NMB. We were able to d/c the Nimbex the next day and get his FiO2 down as low as 60%. Echo showed moderate LVH, normal LV size and fxn, normal RV size, normal RVSP, and IVC measured 1.9cm w about 50% insp collapse. We started him on ivermectin, vit D, and thimaine, upped his steroids to Solumedrol 80mg bid, and gave gentle volume resusc. On 01/10 we started him on losartan bec of HTN. Over the past week, his renal indices have slowly improved. We?ve been able to get his FiO2 as low as 50% but not consistently. A CXR done yesterday for routine f/u showed a new small right apical PTX and pneumomediastinum. Bec of the imperative to keep him better sedated in order to reduce his insp pressures, we added low dose Precedex. That sedated him very nicely and significantly improved his spontaneous ventilatory pattern, such that we were able to switch him over to low level PSV. It caused his BP to rise, however, which was refractory to IV labetolol. So we started him on nicardipine. Last night we repeated the CXR to f/u on the pneumothorax. The pneumothorax was still there, but it was smaller. The pneumomediastinum was also less. The patient did well overnight, and another routine follow-up chest x-ray at 6 a.m. this morning showed full resolution of the right apical pneumothorax and improved subcutaneous and mediastinal emphysema. At about 8 a.m. this morning, his sats decreased again, for unclear reasons. His ventilatory pattern was still good. We upped his FiO2 to 100%, and did not repeat the chest x-ray. Over the next hours the FiO2 came down. His tidal volumes on only 5 cm of pressure support were occasionally hitting up to the 1 L range so we cut the fentanyl down to 100 mcg. Currently he?s lightly sedated on propofol 30 mcg, Precedex 1 mcg, and fentanyl 100 mcg. He is also on insulin at 2 units/hour, and nicardipine at 7.5 mg, and D5W at 75 cc/hour. Heart rate is 93, blood pressure 162/72. On PSV 5/80%/+10, respiratory rate is 16, Vt 670 cc, Ve 11 L, PIP 16cm, ETCO2 31mm, sat 94%. His respiratory pattern is smooth with excellent excursion and no accessory muscle use. Central venous blood gas this morning showed 7.37/33/5. He?s been afebrile throughout. He arouses easily, but is noninteractive. No JVD at 30?. Normal exp phase. No edema. LABORATORY DATA: As below. Notably, Hb steady. BUN/creat up very slightly to 74/2.5 (baseline hard to assess, prob in the range of 30/2.6). Bicarb steady. Phos is down to 6.3 on the binder. K is down to 3.6 on the LoKelma. MICROBIOLOGY: Sputum Gram stain 01/09 showed 3+ polys, 1+ Gram-positive cocci. Culture negative. Urinalysis 01/09 was negative. 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 The patient had the [employer] COVID vaccine on Martha 12. 1. Bilat pulmon infiltrates 2? COVID pneumonia. Symptom onset date approx. December 30. It?s possible that the J&J vaccine is preventing further deterioration (e.g. in oxygenation and renal fxn). Started on ivermectin, Solu-Medrol 80mg bid, vit D, and thiamine on 01/09. Restarted low dose ASA yesterday. No sustained improvement in his oxygenation yet. Following COVID biomarkers and they are down. 2. ARDS 2? above. Total compliance is close to normal. No improvement in his oxygenation over last 4 days. 3. Hypoxemic respiratory failure. If it wasn?t for his agitation, he could probably be extubated to mask CPAP, maybe even HFNC. 4. Pneumothorax/pneumomediastinum. Statistically, barotrauma worsens the prognosis in COVID ARDS. Resolution may be 2? switching to PSV mode. I?ll repeat the CXR tonight and tomorrow morning. 5. Acute on chronic kidney injury. Likely 2? COVID. Indices may have nadired. I?m going to give him extra IV fluid, in addition to free water via G tube. Following renal indices daily. 6. GI. Slow Hb loss of still unclear etiol. Bloody smears suggested hemorrhoids. Negative hemeoccult suggests no GI bleeding. Hb has been stable last 5 days, so I restarted him on dose ASA. I?ll keep him on 5000 u TID heparin for DVT prophylaxis. 6. ID. No evidence of bacterial infection at this point, no reason to consider antibiotics. 7. Hyperglycemia. Stabilized now. We started bid Lantus yesterday morning. I?ll go up to 40 u bid today, and we?ll ease him off the insulin drip. 8. Metabolic. Brought his potassium down w LoKelma. Nonanion gap metabolic acidosis, presumably from renal dz, is stable. Treating hypernatremia with enteral free water and D5W. Started on phosphate binder. 9. Nutrition. Changed glucerna tube feeds to Nepro bec of the phos, with added protein supplement. I spoke to the patient?s mother, Nancy Rahman ([phone]), on January 10, and updated her on condition and prognosis. I cautioned her that most patients requiring mechanical ventilation do not survive, but with his young age and his improving renal indices, there is reason to have hope. Critical care time: 50 min. Critical Care Time (minutes): 50 Physical Exam Vital Signs: Vital Signs: Last Vital Signs Temp 99.1 F 01/14/21 14:00 Pulse 94 01/14/21 14:28 Resp 16 01/14/21 14:28 BP 159/74 H 01/14/21 14:28 Pulse Ox 92 01/14/21 14:28 Oxygen Flow Rate 100 01/07/21 05:11 Body Mass Index 36.3 Objective Data Labs CBC & Chem 7: 01/14/21 05:13 01/14/21 05:13 Labs: Laboratory Results - last 24 hr 01/13/21 01/13/21 01/13/21 17:40 20:00 20:58 WBC RBC Hgb Hct MCV MCH MCHC RDW Plt Count MPV Absolute Nucleated RBC Nucleated RBC % (auto) VBG pH VBG pCO2 VBG pO2 VBG HCO3 VBG O2 Saturation VBG Base Excess Sodium Potassium Chloride Carbon Dioxide Anion Gap BUN Creatinine Estim Creat Clear Calc Estimated GFR POC Glucose 232 H 183 H 169 H Random Glucose Lactic Acid Calcium Phosphorus Magnesium Albumin Ur Random Sodium 01/13/21 01/14/21 01/14/21 22:10 00:02 02:07 WBC RBC Hgb Hct MCV MCH MCHC RDW Plt Count MPV Absolute Nucleated RBC Nucleated RBC % (auto) VBG pH VBG pCO2 VBG pO2 VBG HCO3 VBG O2 Saturation VBG Base Excess Sodium Potassium Chloride Carbon Dioxide Anion Gap BUN Creatinine Estim Creat Clear Calc Estimated GFR POC Glucose 175 H 193 H 192 H Random Glucose Lactic Acid Calcium Phosphorus Magnesium Albumin Ur Random Sodium 01/14/21 01/14/21 01/14/21 04:09 05:10 05:13 WBC 9.8 RBC 2.95 L Hgb 8.1 L Hct 25.8 L MCV 87.5 MCH 27.5 MCHC 31.4 RDW 14.8 Plt Count 144 L MPV 12.7 H Absolute Nucleated RBC 0.000 Nucleated RBC % (auto) 0.0 VBG pH VBG pCO2 VBG pO2 VBG HCO3 VBG O2 Saturation VBG Base Excess Sodium Potassium Chloride Carbon Dioxide Anion Gap BUN Creatinine Estim Creat Clear Calc Estimated GFR POC Glucose 218 H Random Glucose Lactic Acid 0.8 Calcium Phosphorus Magnesium Albumin Ur Random Sodium 01/14/21 01/14/21 01/14/21 05:13 05:19 06:12 WBC RBC Hgb Hct MCV MCH MCHC RDW Plt Count MPV Absolute Nucleated RBC Nucleated RBC % (auto) VBG pH 7.37 VBG pCO2 33 VBG pO2 124 VBG HCO3 19 L VBG O2 Saturation 98.0 VBG Base Excess -5.0 Sodium 145 Potassium 3.6 Chloride 113 H Carbon Dioxide 20 L Anion Gap 16 BUN 74 H Creatinine 2.55 H Estim Creat Clear Calc 51.1 Estimated GFR 27 POC Glucose 185 H Random Glucose 206 H Lactic Acid Calcium 8.0 L Phosphorus 6.3 H Magnesium 2.6 Albumin 2.7 L Ur Random Sodium 01/14/21 01/14/21 01/14/21 07:54 10:37 12:59 WBC RBC Hgb Hct MCV MCH MCHC RDW Plt Count MPV Absolute Nucleated RBC Nucleated RBC % (auto) VBG pH VBG pCO2 VBG pO2 VBG HCO3 VBG O2 Saturation VBG Base Excess Sodium Potassium Chloride Carbon Dioxide Anion Gap BUN Creatinine Estim Creat Clear Calc Estimated GFR POC Glucose 172 H 189 H Random Glucose Lactic Acid Calcium Phosphorus Magnesium Albumin Ur Random Sodium 21.0 01/14/21 13:08 WBC RBC Hgb Hct MCV MCH MCHC RDW Plt Count MPV Absolute Nucleated RBC Nucleated RBC % (auto) VBG pH VBG pCO2 VBG pO2 VBG HCO3 VBG O2 Saturation VBG Base Excess Sodium Potassium Chloride Carbon Dioxide Anion Gap BUN Creatinine Estim Creat Clear Calc Estimated GFR POC Glucose 167 H Random Glucose Lactic Acid Calcium Phosphorus Magnesium Albumin Ur Random Sodium Microbiology Microbiology Results: Microbiology 01/09/21 21:01 Sputum - Suctioned Gram Stain - Final 01/09/21 21:01 Sputum - Suctioned Sputum Culture - Final 01/07/21 05:25 Blood - Venous Blood Culture - Final No growth after 5 days. 01/07/21 05:18 Blood - Venous Blood Culture - Final No growth after 5 days. Quality Stroke Does the patient have a stroke diagnosis?: No VTE Prior VTE?: No VTE Risk Level:: Medical - moderate - high VTE Device Contraindication: Treatment Not Indicated VTE Drug Contraindication: N/A - Med Ordered
--- NOTE | 2021-01-14 15:23 | PM.PNNEP ---
Subjective Subjective Date of Service: 01/14/21 Interval history: remains intubated Nicardipine for HTN almonte in place good UOP Cr at baseline. Physical Exam Vital Signs: Vital Signs: Last Vital Signs Temp 99.1 F 01/14/21 14:00 Pulse 94 01/14/21 14:28 Resp 16 01/14/21 14:28 BP 159/74 H 01/14/21 14:28 Pulse Ox 92 01/14/21 14:28 Oxygen Flow Rate 100 01/07/21 05:11 Body Mass Index 36.3 Const: Other: Intubated. Sedated Resp: Auscultation: rhonchi Cardio: Rate: regular rate Rhythm: regular rhythm GI: Inspection: Yes normal to inspection : Other: Almonte in place Extrem: Other: Let AKA. Right BKA Objective Data Labs CBC & Chem 7: 01/14/21 05:13 01/14/21 05:13 Labs: Laboratory Results - last 24 hr 01/13/21 01/13/21 01/13/21 17:40 20:00 20:58 WBC RBC Hgb Hct MCV MCH MCHC RDW Plt Count MPV Absolute Nucleated RBC Nucleated RBC % (auto) VBG pH VBG pCO2 VBG pO2 VBG HCO3 VBG O2 Saturation VBG Base Excess Sodium Potassium Chloride Carbon Dioxide Anion Gap BUN Creatinine Estim Creat Clear Calc Estimated GFR POC Glucose 232 H 183 H 169 H Random Glucose Lactic Acid Calcium Phosphorus Magnesium Albumin Ur Random Sodium 01/13/21 01/14/21 01/14/21 22:10 00:02 02:07 WBC RBC Hgb Hct MCV MCH MCHC RDW Plt Count MPV Absolute Nucleated RBC Nucleated RBC % (auto) VBG pH VBG pCO2 VBG pO2 VBG HCO3 VBG O2 Saturation VBG Base Excess Sodium Potassium Chloride Carbon Dioxide Anion Gap BUN Creatinine Estim Creat Clear Calc Estimated GFR POC Glucose 175 H 193 H 192 H Random Glucose Lactic Acid Calcium Phosphorus Magnesium Albumin Ur Random Sodium 01/14/21 01/14/21 01/14/21 04:09 05:10 05:13 WBC 9.8 RBC 2.95 L Hgb 8.1 L Hct 25.8 L MCV 87.5 MCH 27.5 MCHC 31.4 RDW 14.8 Plt Count 144 L MPV 12.7 H Absolute Nucleated RBC 0.000 Nucleated RBC % (auto) 0.0 VBG pH VBG pCO2 VBG pO2 VBG HCO3 VBG O2 Saturation VBG Base Excess Sodium Potassium Chloride Carbon Dioxide Anion Gap BUN Creatinine Estim Creat Clear Calc Estimated GFR POC Glucose 218 H Random Glucose Lactic Acid 0.8 Calcium Phosphorus Magnesium Albumin Ur Random Sodium 01/14/21 01/14/21 01/14/21 05:13 05:19 06:12 WBC RBC Hgb Hct MCV MCH MCHC RDW Plt Count MPV Absolute Nucleated RBC Nucleated RBC % (auto) VBG pH 7.37 VBG pCO2 33 VBG pO2 124 VBG HCO3 19 L VBG O2 Saturation 98.0 VBG Base Excess -5.0 Sodium 145 Potassium 3.6 Chloride 113 H Carbon Dioxide 20 L Anion Gap 16 BUN 74 H Creatinine 2.55 H Estim Creat Clear Calc 51.1 Estimated GFR 27 POC Glucose 185 H Random Glucose 206 H Lactic Acid Calcium 8.0 L Phosphorus 6.3 H Magnesium 2.6 Albumin 2.7 L Ur Random Sodium 01/14/21 01/14/21 01/14/21 07:54 10:37 12:59 WBC RBC Hgb Hct MCV MCH MCHC RDW Plt Count MPV Absolute Nucleated RBC Nucleated RBC % (auto) VBG pH VBG pCO2 VBG pO2 VBG HCO3 VBG O2 Saturation VBG Base Excess Sodium Potassium Chloride Carbon Dioxide Anion Gap BUN Creatinine Estim Creat Clear Calc Estimated GFR POC Glucose 172 H 189 H Random Glucose Lactic Acid Calcium Phosphorus Magnesium Albumin Ur Random Sodium 21.0 01/14/21 13:08 WBC RBC Hgb Hct MCV MCH MCHC RDW Plt Count MPV Absolute Nucleated RBC Nucleated RBC % (auto) VBG pH VBG pCO2 VBG pO2 VBG HCO3 VBG O2 Saturation VBG Base Excess Sodium Potassium Chloride Carbon Dioxide Anion Gap BUN Creatinine Estim Creat Clear Calc Estimated GFR POC Glucose 167 H Random Glucose Lactic Acid Calcium Phosphorus Magnesium Albumin Ur Random Sodium Microbiology Microbiology Results: Microbiology 01/09/21 21:01 Sputum - Suctioned Gram Stain - Final 01/09/21 21:01 Sputum - Suctioned Sputum Culture - Final 01/07/21 05:25 Blood - Venous Blood Culture - Final No growth after 5 days. 01/07/21 05:18 Blood - Venous Blood Culture - Final No growth after 5 days. Assessment & Plan Assessment and plan (1) Acute respiratory distress syndrome (ARDS) due to COVID-19 virus: Status: Acute (2) Acute on chronic kidney failure: Status: Acute Assessment and Plan: Mr. Preciado is a 45-year-old gnetlmean with uncontrolled DM2, uncontrolled HTN, right BKA, left BKA, osteomyelitis right shoulder, and CKD stage IIIB/IV with BL Cr 2.7-2.8mg/dL who now has COVID ARDS. Renal function stable. Plan: - avoid nephrotoxins - avoid proper hemodynamics, much appreciated ICU efforts - maintain almonte - if you need anything at all please let me know. - COVID Care with Steroids (3) Acute respiratory failure with hypoxia: Status: Acute (4) Hepatitis C, chronic: Status: Acute (5) Cirrhosis: Status: Acute (6) Diabetes: Status: Acute (7) Hypertension: Status: Acute Time Spent With Patient Time: Total time spent is greater than 50% in coordination of care (as documented) at patient's floor/unit and/or counseling patient: Procedures Date of Service Date of Service: 01/14/21 Progress Note: Quality Stroke Does the patient have a stroke diagnosis?: No
[2021-01-14 16:16] LABS: Glucose, Whole Blood 212 mg/dL (60-115)
--- NOTE | 2021-01-14 17:43 | PC.NURSE ---
Remains intubated/sedated. COVID precautions maintained. (+) cough/gag, with suction and q2hr oral care. Awakens to stimuli as well as when sedation is low/off, remains restrained bilaterally at the wrists. Fentanyl weaned from 200mcg/hr down to 100 per MD d/t high Vt > 700. Precedex titrated up to cover for opioid loss Propofol unchanged, see MAR ETT again noted to migrate from 26LL to 24. Repeat CXR to be done at 1900. Settings unchanged with the exception of FiO2 titrated for decreasing SpO2 throughout the day especially after movement. GOAL SpO2 90%, little to no inline secretions. Tube feeds continue at ordered rate. Residuals wnLs. Supplements as ordered as well as Free H2O boluses that now are every 6hrs. No BM, (+) flatus. Preston draining clear yellow urine. Skin intact, no breakdown. POCs within limits in Insulin drip that has remained at 2units/hr. Checking POC q4hrs now per Dr. Perez. Low grade temps, see VS. Scheduled meds as ordered. Cardene drip unchanged, see MAR, D5W started today, infusing at 75mL/hr. TLC site benign. Bathed this afternoon, repositioned Q2hrs with the use of Prevalon pad. Pillows beneath extremity pressure points for relief. Barrier cream applied. Family updated multiple time throughout the day: Mom Lolly x1, daughter Elizabeth x2. Presently with [employer] tablet in room with family online.
--- NOTE | 2021-01-14 20:18 | W.PM.CCHP ---
Procedures Date of Service Date of Service: 01/15/21 Chest Tube Chest Tube 1: Chest tube location: Mid-Clavicular Chest Size of tube: 14 Chest tube procedure: Yes sterile drapes applied and other Tube sutured to skin: Yes Sterile dressing applied: Yes Anesthesia: 1% Lidocaine Volume anesthetic (ml): 5 Incision made with: other Post procedure: sutured to skin Cruz of air heard: Yes Tube Drainage: none Post procedure CXR?: Yes Patient tolerated procedure: Yes Progress: Emergent right chest tube was placed to the best of my abilities given that the patient has a thick body sat and was difficult to identify the anatomy but this was successfully placed in without any complications in the above-mentioned manner, connected to water suction at -20 of pressure. A consent was obtained from the patient's family over the phone. Postprocedure x-ray shows re-expansion of the lung. No complications. No bleeding. Case discussed with Dr. Perez
[2021-01-14 20:35] LABS: Glucose, Whole Blood 165 mg/dL (60-115)
[2021-01-14] MEDS: propofoL 1,000 MG/100 ML VIAL 39.66 MG IVCONT ×2 (21:00→22:55)
[2021-01-14] MEDS: Insulin Glargine,Hum.rec.anlog 100 UNIT/ML 10 ML VIAL 40 UNIT SUBCUT (21:08)
[2021-01-15] VITALS (39 sets, daily range): BP systolic 118–173; BP diastolic 69–89; PULSE 85–98; RESP 12–22; TEMP 36.7–37.7; O2SAT 82–99; BMI 37.9
[2021-01-15] MEDS: Albuterol/Iprat 2.5/0.5MG 3 ML AMPUL.NEB INHALE (00:10)
[2021-01-15] MEDS: Cisatracurium Besylate 20 MG/10 ML VIAL 10 MG IVPUSH (00:19)
[2021-01-15] MEDS: Albuterol Sulfate (0.083%) 2.5 MG/3 ML VIAL.NEB 10 MG INHALE (00:20)
[2021-01-15] MEDS: propofoL 1,000 MG/100 ML VIAL 39.66 MG IVCONT ×5 (01:24→12:46)
[2021-01-15] MEDS: niCARdipine HCL 25 MG in 0.9 % Sodium Chloride 250 ML 78 MG IVCONT ×4 (01:24→11:30)
[2021-01-15] MEDS: fentaNYL citrate/NS 1,000 MCG/100 ML PLAST..BAG 30 MCG IVCONT (01:37)
[2021-01-15] MEDS: dexmedeTOMIDidine HCL/NS 400 MCG/100 ML INFUS..BTL 49.58 MCG IVCONT ×5 (01:42→22:25)
[2021-01-15 01:54] LABS: Glucose, Whole Blood 203 mg/dL (60-115)
--- NOTE | 2021-01-15 02:12 | PC.NURSE ---
Addendum entered by Eliane Segovia RN 01/15/21 06:58: Patient T max 99.7, NSR on tele HR 90's , Cardene drip titrated to maintain sys BP <180. Patient sedated on Propofol, Fentanyl, Precedex. See drug titrations , Nimbex drip started for vent syncrony. ET #8 at 28 cm. AC of 18, TV 560, PEEP 10, 80% FI02. Minimal inline secretions. Insulin drip titrated per protocol. Urine out put 100ml/hr. Chest tube to -20 cm suction per PA, minimal serosang drainage. DSG C/D/I. Family updated facetime/ via phone on patient's condition. Repositioned Q2H and as needed. Skin intact. CXR done this am , PA aware of results. Original Note: 1899 CXR done showing enlarging right ptx. PA aware, patient desating 70's -80's via 100% Fi02. Emergent chest tube places 14 israeli, midclavicular right , -20 suction. Consent obtained per family via facetime. Patient tolerated procedure well, O2 sats up to 92% after insertion, Fio2 100% Approximately 0000 , patient desating to 85-86% on 100% Fio2, when attempted to repo pt , O2sats dropped to as low as 69%. Patient suctioned, maxed out all of sedation with not effect. PA came in to bedside, PA and RT adjusted vent settings with no effect pt continued to sat in the low 70's at 100% Fio2, pt asynchronous with the vent. 10 mg IVP Nimbex given , Nimbex drip started at 2mcg/kg/min.Vent settings changed from PS to VC, settings 18/560/10/100%. Patient's lungs rhonchorous , a second CXR done. ? aspiration pneumonia. Patient layed supine on left side, chest PT performed with good effect currently O2 sats 96%, will wean O2 as tolerated.
[2021-01-15 03:57] LABS: Glucose, Whole Blood 198 mg/dL (60-115)
[2021-01-15] MEDS: Heparin Sodium,Porcine 5,000 UNIT/ML VIAL 5000 UNIT SUBCUT ×3 (04:23→20:03)
[2021-01-15] MEDS: dexmedeTOMIDidine HCL/NS 400 MCG/100 ML INFUS..BTL 33.05 MCG IVCONT ×5 (04:23→15:33)
[2021-01-15] MEDS: Cisatracurium Besylate 100 MG in 0.9 % Sodium Chloride 40 ML 7.7 MG IVCONT ×2 (05:19)
[2021-01-15 05:33] LABS: VBG Base Excess -7.4 mmol/L; VBG HCO3 19 mmol/L (22-26); VBG pCO2 42 mmHg; VBG pH 7.25 (7.32-7.43); VBG pO2 63 mmHg
[2021-01-15 05:41] LABS: Hematocrit 25.7 % (42-52); Hemoglobin 7.9 g/dl (14.0-18.0); Mean Corpuscular HGB Conc 30.7 g/dl (31.0-36.0); Mean Corpuscular Hemoglobin 27.2 pg (27.0-33.0); Mean Corpuscular Volume 88.6 fL (80-98); Mean Platelet Volume 12.5 fL (9.4-12.4); Platelet Count 136 X10*3/uL (160-400); Red Cell Distribution Width 14.6 % (11.0-16.0); White Blood Count 10.7 X10*3/uL (4.8-10.8)
[2021-01-15] MEDS: fentaNYL citrate/NS 1,000 MCG/100 ML PLAST..BAG 20 MCG IVCONT ×2 (06:01→10:37)
[2021-01-15 06:05] LABS: Anion Gap 14 (12-20); Blood Urea Nitrogen 77 mg/dL (9-16); Calcium 8.1 mg/dL (8.4-10.2); Carbon Dioxide 19 mmol/L (22-29); Chloride 112 mmol/L (96-108); Creatinine Clr Calc Pharmacy 50.5; Estimated Glomerular Filt Rate 26; Glucose Random 218 mg/dL (60-115); Phosphorus 6.6 mg/dL (2.7-4.5); Potassium 3.8 mmol/L (3.3-5.1); Sodium 141 mmol/L (135-145)
[2021-01-15 06:21] LABS: Lactic Acid 0.6 mmol/L (0.5-2.0)
[2021-01-15 07:14] LABS: Venous Blood Gas Refer to POC result
[2021-01-15] MEDS: methylPREDNISolone Sod Succ 125 MG/2 ML VIAL 80 MG IVPUSH ×2 (08:28→20:03)
[2021-01-15] MEDS: Chlorhexidine Gluc Oral Rinse 15 ML MOUTHWASH BUCCAL ×3 (08:28→20:03)
[2021-01-15] MEDS: Sevelamer Carbonate Powder 800 MG POWD.PACK 1600 MG PO ×3 (08:28→16:49)
[2021-01-15] MEDS: Thiamine HCL 200 MG/2 ML VIAL IVPUSH ×2 (08:28→20:03)
[2021-01-15] MEDS: Lactulose 20 GM/30 ML SOLUTION OG-TUBE ×2 (08:28→20:03)
[2021-01-15] MEDS: Cholecalciferol (Vitamin D3) 25 MCG TABLET 50 MCG OG-TUBE (08:32)
[2021-01-15] MEDS: Insulin Glargine,Hum.rec.anlog 100 UNIT/ML 10 ML VIAL 40 UNIT SUBCUT (08:32)
[2021-01-15] MEDS: Aspirin 81 MG TAB.CHEW OG-TUBE (08:32)
[2021-01-15] MEDS: QUEtiapine Fumarate 100 MG TABLET OG-TUBE ×2 (08:33→20:03)
[2021-01-15] MEDS: Labetalol HCL 100 MG TABLET 300 MG OG-TUBE ×2 (08:33→20:50)
[2021-01-15] MEDS: Losartan Potassium 50 MG TABLET 100 MG OG-TUBE (08:33)
[2021-01-15 09:02] LABS: Glucose, Whole Blood 171 mg/dL (60-115)
[2021-01-15 11:16] LABS: Glucose, Whole Blood 155 mg/dL (60-115)
[2021-01-15] MEDS: Insulin Regular/NS 100 UNIT/100 ML PLAST..BAG IVCONT (11:25)
[2021-01-15] MEDS: Erythromycin Base 250 MG TABLET PO (11:25)
[2021-01-15 13:58] LABS: Glucose, Whole Blood 148 mg/dL (60-115)
[2021-01-15] MEDS: niCARdipine HCL 25 MG in 0.9 % Sodium Chloride 250 ML 52 MG IVCONT ×2 (14:53→22:24)
[2021-01-15] MEDS: propofoL 1,000 MG/100 ML VIAL 23.8 MG IVCONT (16:01)
--- NOTE | 2021-01-15 16:17 | PM.PNNEP ---
Subjective Subjective Date of Service: 01/15/21 Interval history: Intubated Chest tube Cr at baseline acidosis noted Physical Exam Vital Signs: Vital Signs: Last Vital Signs Temp 98.6 F 01/15/21 15:56 Pulse 91 01/15/21 15:56 Resp 22 H 01/15/21 15:56 BP 127/79 01/15/21 16:01 Pulse Ox 91 L 01/15/21 15:56 Oxygen Flow Rate 100 01/07/21 05:11 Body Mass Index 37.9 Const: Other: Intubated. Sedated Resp: Auscultation: rhonchi Cardio: Rate: regular rate Rhythm: regular rhythm GI: Inspection: Yes normal to inspection : Other: Almonte in place Extrem: Other: Let AKA. Right BKA Objective Data Labs CBC & Chem 7: 01/15/21 05:30 01/15/21 05:30 Labs: Laboratory Results - last 24 hr 01/14/21 01/14/21 01/15/21 16:07 20:16 01:45 WBC RBC Hgb Hct MCV MCH MCHC RDW Plt Count MPV Absolute Nucleated RBC Nucleated RBC % (auto) VBG pH VBG pCO2 VBG pO2 VBG HCO3 VBG O2 Saturation VBG Base Excess Sodium Potassium Chloride Carbon Dioxide Anion Gap BUN Creatinine Estim Creat Clear Calc Estimated GFR POC Glucose 212 H 165 H 203 H Random Glucose Lactic Acid Calcium Phosphorus 01/15/21 01/15/21 01/15/21 03:51 05:26 05:30 WBC 10.7 RBC 2.90 L Hgb 7.9 L Hct 25.7 L MCV 88.6 MCH 27.2 MCHC 30.7 L RDW 14.6 Plt Count 136 L MPV 12.5 H Absolute Nucleated RBC 0.000 Nucleated RBC % (auto) 0.0 VBG pH 7.25 L VBG pCO2 42 VBG pO2 63 VBG HCO3 19 L VBG O2 Saturation 84.0 VBG Base Excess -7.4 Sodium Potassium Chloride Carbon Dioxide Anion Gap BUN Creatinine Estim Creat Clear Calc Estimated GFR POC Glucose 198 H Random Glucose Lactic Acid Calcium Phosphorus 01/15/21 01/15/21 01/15/21 05:30 05:55 08:53 WBC RBC Hgb Hct MCV MCH MCHC RDW Plt Count MPV Absolute Nucleated RBC Nucleated RBC % (auto) VBG pH VBG pCO2 VBG pO2 VBG HCO3 VBG O2 Saturation VBG Base Excess Sodium 141 Potassium 3.8 Chloride 112 H Carbon Dioxide 19 L Anion Gap 14 BUN 77 H Creatinine 2.63 H Estim Creat Clear Calc 50.5 Estimated GFR 26 POC Glucose 171 H Random Glucose 218 H Lactic Acid 0.6 Calcium 8.1 L Phosphorus 6.6 H 01/15/21 01/15/21 11:11 13:44 WBC RBC Hgb Hct MCV MCH MCHC RDW Plt Count MPV Absolute Nucleated RBC Nucleated RBC % (auto) VBG pH VBG pCO2 VBG pO2 VBG HCO3 VBG O2 Saturation VBG Base Excess Sodium Potassium Chloride Carbon Dioxide Anion Gap BUN Creatinine Estim Creat Clear Calc Estimated GFR POC Glucose 155 H 148 H Random Glucose Lactic Acid Calcium Phosphorus Microbiology Microbiology Results: Microbiology 01/09/21 21:01 Sputum - Suctioned Gram Stain - Final 01/09/21 21:01 Sputum - Suctioned Sputum Culture - Final 01/07/21 05:25 Blood - Venous Blood Culture - Final No growth after 5 days. 01/07/21 05:18 Blood - Venous Blood Culture - Final No growth after 5 days. Assessment & Plan Assessment and plan (1) Acute respiratory distress syndrome (ARDS) due to COVID-19 virus: Status: Acute (2) Acute on chronic kidney failure: Status: Acute Assessment and Plan: Mr. Preciado is a 45-year-old gnetlmean with uncontrolled DM2, uncontrolled HTN, right BKA, left BKA, osteomyelitis right shoulder, and CKD stage IIIB/IV with BL Cr 2.7-2.8mg/dL who now has COVID ARDS. Renal function stable. Intubated, sedated, with chest tube. Acidosis developing as well. Plan: - avoid nephrotoxins - avoid proper hemodynamics, much appreciated ICU efforts - maintain almonte - COVID Care with Steroids (3) Acute respiratory failure with hypoxia: Status: Acute Assessment and Plan: The patients ABG today shows a dual Respiratory Acidosis and Metabolic Acidosis. Plan: - increase minute ventilation - resuscitation with bicarb rich fluids like LR or NaBicarb 150meq/L (4) Hepatitis C, chronic: Status: Acute (5) Cirrhosis: Status: Acute (6) Diabetes: Status: Acute (7) Hypertension: Status: Acute Time Spent With Patient Time: Total time spent is greater than 50% in coordination of care (as documented) at patient's floor/unit and/or counseling patient: Procedures Date of Service Date of Service: 01/15/21 Progress Note: Quality Stroke Does the patient have a stroke diagnosis?: No
--- NOTE | 2021-01-15 16:24 | PM.CCPN ---
Subjective Subjective Date of Service: 01/15/21 Interval History: Mr. Preciado was admitted to ICU on January 07 with acute respiratory failure 2? COVID ARDS, hyperglycemia, KIRILL, and metabolic acidosis. 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 The patient had the [employer]hay COVID vaccine on October 24. Reportedly lives at home with his . His mother is the HCP. HISTORY OF PRESENT ILLNESS: The patient recently returned from a trip to [place] and came to our ED on January 01 with 2 days of cough, chest congestion, and wheezing. Multiple family members had similar symptoms. Additionally, he reported bilateral lower abdominal pain and small amounts of bright red blood per rectum for the prior 2 weeks. In the ED, he tested positive for COVID-19. Sat was 97% on RA. Hemoglobin was noted to be 9.8 compared to a baseline of around 11-12. DDimer and CRP were only mildly elevated. CXR showed NAD. CT of the abdomen and pelvis without contrast showed a 4.5 cm segment of distal transverse colon with circumferential wall thickening and luminal narrowing that could represent either spasm or colonic mass; there was also a masslike density near the ileocecal valve. Also demonstrated were splenomegaly and small upper abdominal varices but no ascites. The lung were clear by my reading; the radiologist read a few questionable small areas of ground-glass opacities. He was admitted and treated with steroids for asthma exaccerebation. His wheezing resolved. DAPT for his stroke was held and his Hb was stable and he had no bleeding. His hematochezia was thought very possibly due to hemorrhoids found on exam. Bec of his COVID status, further GI workup w colonoscopy was deferred, as was GI f/u and treatment for his Hep C. He was discharged home on January 04. HISTORY OF PRESENT ILLNESS: On January 07 he represented to the ED in moderate respiratory distress. SpO2 was low 70s on room air, 88% on O2 FM, and 94% on 100% HFNC. Labs were notable for WBC 13, Hb 10.4, BUN/creat were 68/3.1 (from 53/3/0 on 01/04), Bicarb was 13, K was 5.2, gluc was 546, lactate was 3.2, alb was 2.2. Acetone was negative. DDimer was bumped to 1581 (from 506 on 01/03), CRP was up to 14. ABG (on ?100% FiO2) showed 7.32/19/88/-13. CXR showed patchy multifocal opacities in both lungs, c/w COVID. CT abdomen done for f/u of prev CT and bec of lactic acidosis showed the same two equivocal findings in the colon, one at the ileocecal valve region and one in the distal transverse colon ?which require further assessment in the setting of GI bleeding to exclude underlying malignancy.? Hepatic cirrhosis with portal venous hypertension as evidenced by splenomegaly and small upper abdominal varices was again demonstrated, w no significant ascites. The lung cuts showed severe bilat patchy opacities suggestive of infectious/inflammatory process. The patient was admitted to ICU. He was treated with dexamethasone, a bicarb drip, and insulin drip. U/o and renal fxn improved slightly and his lactic and metabolic acidoses resolved. However oxygenation deteriorated, and he required tracheal intubation on 01/08. The next day we were able to d/c his Nimbex get his FiO2 down as low as 60%. Echo showed moderate LVH, normal LV size and fxn, normal RV size, normal RVSP, and IVC measured 1.9cm w about 50% insp collapse. He was started him on a 5-day course of ivermectin, along w vit D and thimaine, and we upped his steroids to Solumedrol 80mg bid. On 01/10 we started him on losartan bec of HTN. Over the past week, his renal indices have slowly improved. We?ve been able to get his FiO2 as low as 50% but not consistently. A routine CXR done 01/13 showed a new small right apical PTX and pneumomediastinum (compared with the prev film from 01/08). Bec of the imperative to keep him better sedated in order to reduce his insp pressures, we added low dose Precedex. That sedated him very nicely and significantly improved his spontaneous ventilatory pattern, such that we were able to switch him over to low level PSV. It caused his BP to rise, however, which was refractory to IV labetolol, so he was started on nicardipine. F/U CXRs that night and the next morning (yesterday morning) showed full resolution of the right apical pneumothorax and improved subcutaneous and mediastinal emphysema. Last night, however, his Sat?s decreased and a CXR showed reappearance and enlargement of the PTX. Therefore a Gnozalo pneumothorax drainage catheter was placed. F/U CXR showed a tiny residual apical PTX. Overall, his pulmonary infiltrates looked worse though. Difficult oxygenation caused us to change him back to AC mode and he required NMB. Overnight his oxygenation improved and we were able to get his FiO2 back down to 60%. We stopped the Nimbex this morning. This afternoon I was able to switch him back to PS mode. On propofol 50ug, Fent 200ug, Precedx 1ug, and on PSV 5/70/+10, RR was 8, Vt low 80?s, Ve 7.5L, PIP 17 (compared to 30 on AC mode), ETCO2 40, Sat 90%. So we cut the fentanyl to 100ug and the propofol to 30ug. CVBG this morning showed 7.25/42/-7. Heart rate is 91, blood pressure 127/79. The nicardipine was d/c?d earlier. His respiratory pattern is smooth with excellent excursion and no accessory muscle use. He?s been afebrile throughout. He arouses easily, but is noninteractive. No JVD at 30?. Normal exp phase. No edema. LABORATORY DATA: As below. Notably, Hb is steady. Sodium is down to 141. BUN/creat up slightly to 77/2.6 (was 74/2.5 yesterday; baseline hard to assess, prob in the range of 30/2.6). Bicarb steady. Phos up slightly to 6.3 on the binder. K up to 3.8. POCs in the mid-high 100?s on Lantus and insulin gtt. MICROBIOLOGY: Sputum Gram stain 01/09 showed 3+ polys, 1+ Gram-positive cocci. Culture negative. Urinalysis 01/09 was negative. Blood cultures repeated this morning, negative so far. 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 The patient had the Abhay [employer] Abhay COVID vaccine on October 24. 1. Bilat pulmon infiltrates 2? COVID pneumonia. Symptom onset date approx. December 30. Unclear if the J&J vaccine had any salutary benefit. Started on ivermectin, Solu-Medrol, vit D, and thiamine on 01/09, no conclusive benefit from those, that his biomarkers are down, and he hasn?t progressed to gross renal failure or sustained requirement for 100% FiO2. Restarted low dose ASA on 01/13. 2. ARDS 2? above. Total compliance is close to normal. 3. Hypoxemic respiratory failure. If it wasn?t for his agitation, he could probably be extubated to mask CPAP, maybe even HFNC. 4. Pneumothorax/pneumomediastinum. Statistically, barotrauma worsens the prognosis in COVID ARDS. Switching him to PSV mode clearly lowers his inspiratory pressures. I?ll repeat the CXR tomorrow morning. 5. Acute on chronic kidney injury. Likely 2? COVID. Indices may have nadired. I gave his extra crystalloid last 24hrs, with no improvement in his indices, so I?ve d/c?d that. 6. GI. Slow Hb loss reported earlier this month of still unclear etiol. Bloody smears suggested hemorrhoids. Negative hemeoccult suggests no GI bleeding. Hb has been stable last 6 days, so I restarted him on dose ASA. Also on 5000 u TID heparin for DVT prophylaxis. 6. ID. No evidence of bacterial infection at this point, no reason to consider antibiotics. 7. Hyperglycemia. We started bid Lantus. I?ll go up to 50 u bid today, and we?ll ease him off the insulin drip. 8. Metabolic. Brought his potassium down w LoKelma. Nonanion gap metabolic acidosis, presumably from renal dz, is stable. Treating hypernatremia with enteral free water. Started on phosphate binder. 9. Nutrition. On Nepro, with added protein supplement, plus calories from the propofol. I last spoke to the patient?s mother, Nancy Rahman ([phone]), on January 10, and updated her on condition and prognosis. I cautioned her that most patients requiring mechanical ventilation do not survive, but with his young age and his improving renal indices, there is reason to have hope. Critical care time: 60+ min. Critical Care Time (minutes): 60 Physical Exam Vital Signs: Vital Signs: Last Vital Signs Temp 98.6 F 01/15/21 15:56 Pulse 91 01/15/21 15:56 Resp 22 H 01/15/21 15:56 BP 127/79 01/15/21 16:01 Pulse Ox 91 L 01/15/21 15:56 Oxygen Flow Rate 100 01/07/21 05:11 Body Mass Index 37.9 Objective Data Labs CBC & Chem 7: 01/15/21 05:30 01/15/21 05:30 Labs: Laboratory Results - last 24 hr 01/14/21 01/15/21 01/15/21 20:16 01:45 03:51 WBC RBC Hgb Hct MCV MCH MCHC RDW Plt Count MPV Absolute Nucleated RBC Nucleated RBC % (auto) VBG pH VBG pCO2 VBG pO2 VBG HCO3 VBG O2 Saturation VBG Base Excess Sodium Potassium Chloride Carbon Dioxide Anion Gap BUN Creatinine Estim Creat Clear Calc Estimated GFR POC Glucose 165 H 203 H 198 H Random Glucose Lactic Acid Calcium Phosphorus 01/15/21 01/15/21 01/15/21 05:26 05:30 05:30 WBC 10.7 RBC 2.90 L Hgb 7.9 L Hct 25.7 L MCV 88.6 MCH 27.2 MCHC 30.7 L RDW 14.6 Plt Count 136 L MPV 12.5 H Absolute Nucleated RBC 0.000 Nucleated RBC % (auto) 0.0 VBG pH 7.25 L VBG pCO2 42 VBG pO2 63 VBG HCO3 19 L VBG O2 Saturation 84.0 VBG Base Excess -7.4 Sodium 141 Potassium 3.8 Chloride 112 H Carbon Dioxide 19 L Anion Gap 14 BUN 77 H Creatinine 2.63 H Estim Creat Clear Calc 50.5 Estimated GFR 26 POC Glucose Random Glucose 218 H Lactic Acid Calcium 8.1 L Phosphorus 6.6 H 01/15/21 01/15/21 01/15/21 05:55 08:53 11:11 WBC RBC Hgb Hct MCV MCH MCHC RDW Plt Count MPV Absolute Nucleated RBC Nucleated RBC % (auto) VBG pH VBG pCO2 VBG pO2 VBG HCO3 VBG O2 Saturation VBG Base Excess Sodium Potassium Chloride Carbon Dioxide Anion Gap BUN Creatinine Estim Creat Clear Calc Estimated GFR POC Glucose 171 H 155 H Random Glucose Lactic Acid 0.6 Calcium Phosphorus 01/15/21 13:44 WBC RBC Hgb Hct MCV MCH MCHC RDW Plt Count MPV Absolute Nucleated RBC Nucleated RBC % (auto) VBG pH VBG pCO2 VBG pO2 VBG HCO3 VBG O2 Saturation VBG Base Excess Sodium Potassium Chloride Carbon Dioxide Anion Gap BUN Creatinine Estim Creat Clear Calc Estimated GFR POC Glucose 148 H Random Glucose Lactic Acid Calcium Phosphorus Microbiology Microbiology Results: Microbiology 01/09/21 21:01 Sputum - Suctioned Gram Stain - Final 01/09/21 21:01 Sputum - Suctioned Sputum Culture - Final 01/07/21 05:25 Blood - Venous Blood Culture - Final No growth after 5 days. 01/07/21 05:18 Blood - Venous Blood Culture - Final No growth after 5 days. Quality Stroke Does the patient have a stroke diagnosis?: No VTE Prior VTE?: No VTE Risk Level:: Medical - moderate - high VTE Device Contraindication: Treatment Not Indicated VTE Drug Contraindication: N/A - Med Ordered Critical Care Time Critical Care Time (minutes): 60
[2021-01-15] MEDS: fentaNYL citrate/NS 1,000 MCG/100 ML PLAST..BAG 10 MCG IVCONT (16:49)
[2021-01-15 17:05] LABS: Glucose, Whole Blood 147 mg/dL (60-115)
--- NOTE | 2021-01-15 17:11 | PC.NURSE ---
Addendum entered by Seble Hubbard RN 01/15/21 18:22: Spo2 down to 79% with 1800 reposition to left side on 70% Fio2 - Fio2 increased to 90% and sats came up to 89-91%, TV 700's, RR 16. Chest tube patent, no leak. BP up to 173/80 - Cardene gtt restarted. Dr mortensen notified via [employer]. No new orders at this time. Original Note: S/E Afebrile, WBC 10.7, BC pending Sedated on Fentanyl gtt, Propofol gtt, & Precedex gtt Nimbex off at 1030 per MD Weak cough & gag, absent pain response, pupils 3mm PERRLA SR HR 80-90's, no ectopy Cardene gtt titrated off - SBP 140-150's Continued on Labetalol & Cozaar R IJ TLC patent, dressing changed LS rhonchi throughout, small amount thin clear inline secretions #8 ETT, advanced by RT from 27 to 28cm High peak pressures - Vent settings changed by PC 5, peep 10, 70% Fio2 - TV 730-760, Spo2 89-91%, RR 16-20 #14F chest tube to right mid clavicular chest patent - dressing C/D/I Chest tube to suction, -[id number], no air leaks, 10-15cc serous drainage CXR obtained - see report - repeat CXR for 01/16 0600 Abdomen round, large, faint bowel sounds Tube feeds resumed - Nephro at 10cc, 300cc water flushes, Prosouce administered No BM - Continued on lactulose BID Continued on Insulin gtt - POC 140-150's, Lantus increased to 50u BID Preston patent, 50-75cc/hr, yellow No skin integrity concerns, air loss bed & prevlon pad in place, bathed, repo q2hr Family updated
[2021-01-15] MEDS: propofoL 1,000 MG/100 ML VIAL 27.76 MG IVCONT ×2 (20:20→22:56)
[2021-01-15 20:43] LABS: Glucose, Whole Blood 112 mg/dL (60-115)
[2021-01-15] MEDS: Insulin Glargine,Hum.rec.anlog 100 UNIT/ML 10 ML VIAL 50 UNIT SUBCUT (20:50)
[2021-01-15 23:00] LABS: Glucose, Whole Blood 123 mg/dL (60-115)
[2021-01-16] VITALS (35 sets, daily range): BP systolic 92–176; BP diastolic 46–84; PULSE 85–99; RESP 15–31; TEMP 37.2–38.1; O2SAT 89–100; BMI 37.5
[2021-01-16] MEDS: dexmedeTOMIDidine HCL/NS 400 MCG/100 ML INFUS..BTL 49.58 MCG IVCONT ×8 (00:13→13:45)
[2021-01-16] MEDS: fentaNYL citrate/NS 1,000 MCG/100 ML PLAST..BAG 10 MCG IVCONT (00:14)
[2021-01-16 01:04] LABS: Glucose, Whole Blood 104 mg/dL (60-115)
[2021-01-16] MEDS: propofoL 1,000 MG/100 ML VIAL 27.76 MG IVCONT ×3 (02:04→05:48)
[2021-01-16] MEDS: niCARdipine HCL 25 MG in 0.9 % Sodium Chloride 250 ML 52 MG IVCONT (02:30)
--- NOTE | 2021-01-16 03:28 | PC.NURSE ---
Addendum entered by Manny Richards RN 01/16/21 04:35: RIGHT ANTERIOR PIGTAIL CHEST TUBE -20CM SUCTION...65ML SEROUS DRAINAGE IN PLEURAVAC...NO AIRLEAK Original Note: CARE ASSUMED 23:15...REMAINS TUBED/VENTED...CPAP 10/PSV 5/FIO2 90% AT HS...Ve 9-12 l/m...RR 16-22...SAO2 96-97%...NSR...SEDATED PROPOFOL 35 MCG/KG/MIN AND PRECIDEX 1.5 MCG/KG/HR...CARDENE DRIP 5 MG/HR...INSULIN DRIP WEANED FROM 2 UNITS/HR TO 1 UNIT/HR PER ICU PA AND TO CHECK GLUCOSE 5AM....LAUREN YELLOW URINE......RX'D CARDENE DRIP/COZAAR QD/LABETOLOL BID....FLUID (+) >12 LITERS SINCE ADMIT...REVIEWED WITH PA...FOR AM FOLLOW-UP BNP
[2021-01-16] MEDS: Heparin Sodium,Porcine 5,000 UNIT/ML VIAL 5000 UNIT SUBCUT ×3 (04:22→19:30)
[2021-01-16 05:25] LABS: VBG Base Excess -7.5 mmol/L; VBG HCO3 18 mmol/L (22-26); VBG pCO2 38 mmHg; VBG pH 7.28 (7.32-7.43); VBG pO2 55 mmHg
[2021-01-16 05:46] LABS: Hemoglobin 7.8 g/dl (14.0-18.0); PLT ABN DIST 1
[2021-01-16 05:48] LABS: Mean Corpuscular HGB Conc 31.2 g/dl (31.0-36.0); Mean Corpuscular Hemoglobin 27.2 pg (27.0-33.0); Mean Corpuscular Volume 87.1 fL (80-98); Mean Platelet Volume 12.5 fL (9.4-12.4); Platelet Count 119 X10*3/uL (160-400); Red Blood Count 2.87 X10*6/uL (4.60-5.80); Red Cell Distribution Width 14.7 % (11.0-16.0); White Blood Count 10.4 X10*3/uL (4.8-10.8)
[2021-01-16 05:57] LABS: Alanine Aminotransferase 13 U/L (0-40); Albumin Level 2.8 g/dL (3.5-5.0); Alkaline Phosphatase 86 U/L (39-117); Anion Gap 14 (12-20); Aspartate Amino Transferase 20 U/L (5-37); Bilirubin Total 0.3 mg/dL (0.0-1.0); Blood Urea Nitrogen 87 mg/dL (9-16); Calcium 8.3 mg/dL (8.4-10.2); Carbon Dioxide 19 mmol/L (22-29); Chloride 114 mmol/L (96-108); Creatinine Clr Calc Pharmacy 49.5; Estimated Glomerular Filt Rate 25; Glucose Random 131 mg/dL (60-115); Magnesium 2.4 mg/dL (1.6-2.6); Phosphorus 6.4 mg/dL (2.7-4.5); Sodium 143 mmol/L (135-145); Total Protein 5.7 g/dL (6.5-8.0)
[2021-01-16 06:02] LABS: D Dimer 2154 NG/ML
[2021-01-16 06:12] LABS: B Type Natriuretic Peptide 871 pg/mL (<100)
[2021-01-16 06:14] LABS: Ferritin 185 ng/mL (20-250)
[2021-01-16 06:38] LABS: Venous Blood Gas Refer to POC result
[2021-01-16 08:03] LABS: Glucose, Whole Blood 131 mg/dL (60-115)
[2021-01-16] MEDS: Lactulose 20 GM/30 ML SOLUTION OG-TUBE ×2 (08:05→21:15)
[2021-01-16] MEDS: Chlorhexidine Gluc Oral Rinse 15 ML MOUTHWASH BUCCAL ×3 (08:05→21:15)
[2021-01-16] MEDS: Thiamine HCL 200 MG/2 ML VIAL IVPUSH ×2 (08:06→21:16)
[2021-01-16] MEDS: cloNIDine 0.1 MG PATCH.TDWK TRANSDERMA (08:06)
[2021-01-16] MEDS: methylPREDNISolone Sod Succ 125 MG/2 ML VIAL 80 MG IVPUSH ×2 (08:06→21:15)
[2021-01-16] MEDS: Labetalol HCL 100 MG TABLET 300 MG OG-TUBE ×2 (08:06→21:16)
[2021-01-16] MEDS: Sevelamer Carbonate Powder 800 MG POWD.PACK 1600 MG PO ×3 (08:06→17:53)
[2021-01-16] MEDS: Aspirin 81 MG TAB.CHEW OG-TUBE (08:06)
[2021-01-16] MEDS: Losartan Potassium 50 MG TABLET 100 MG OG-TUBE (08:06)
[2021-01-16] MEDS: Cholecalciferol (Vitamin D3) 25 MCG TABLET 50 MCG OG-TUBE (08:07)
--- NOTE | 2021-01-16 08:13 | P.PNCC_ITS ---
Subjective Subjective Date of Service: 01/16/21 Interval History: 45-year-old diabetic with nephropathy and vasculopathy bilateral amputee otherwise hyperlipidemic and hypertensive with COVID-19 bilateral pneumonitis and ARDS and acute hypoxic respiratory failure developed a spontaneous pneumothorax and currently chest tube in place but no active air leak and sedated with propofol and dexmedetomidine and fentanyl with a positive intake and output ratio that is near 10 L at this point but CVP measuring at 9 and by echo we know that he has evidence of diastolic dysfunction elevated yolanda ling pressures but the other half the problem is that he has got chronic stage III renal failure but progressive pre renal azotemia at this point so there is a concern about simply diuresing so I would rather cut back on some of his IV drips switch him off to oral medications and see if we could hold a line on his azotemia chest x-ray remains fully expanded on the right side with FiO2 currently at 80% and he is on pressure support with PEEP with nearly 15 L minutes ventilatory requirement Critical Care Time (minutes): 40 Physical Exam Vital Signs: Vital Signs: Last Vital Signs Temp 99.1 F 01/16/21 08:00 Pulse 93 01/16/21 08:06 Resp 28 H 01/16/21 08:00 BP 160/77 H 01/16/21 08:06 Pulse Ox 92 01/16/21 08:00 Oxygen Flow Rate 100 01/07/21 05:11 Body Mass Index 37.5 Const: Other: sedated and intubated no respiratory effort with accessory muscles and no adventitious sounds abdomen is soft with no organomegaly and tolerating feedings cardiac exam with CVP of 9 which is moderately elevated in normal sinus rhythm and no gallops Objective Data Labs CBC & Chem 7: 01/16/21 05:10 01/16/21 05:10 Labs: Laboratory Results - last 24 hr 01/15/21 01/15/21 01/15/21 08:53 11:11 13:44 WBC RBC Hgb Hct MCV MCH MCHC RDW Plt Count MPV Absolute Nucleated RBC Nucleated RBC % (auto) D-Dimer VBG pH VBG pCO2 VBG pO2 VBG HCO3 VBG O2 Saturation VBG Base Excess Sodium Potassium Chloride Carbon Dioxide Anion Gap BUN Creatinine Estim Creat Clear Calc Estimated GFR POC Glucose 171 H 155 H 148 H Random Glucose Calcium Phosphorus Magnesium Ferritin Total Bilirubin AST ALT Alkaline Phosphatase C-Reactive Protein B-Natriuretic Peptide Total Protein Albumin 01/15/21 01/15/21 01/15/21 16:59 20:38 22:55 WBC RBC Hgb Hct MCV MCH MCHC RDW Plt Count MPV Absolute Nucleated RBC Nucleated RBC % (auto) D-Dimer VBG pH VBG pCO2 VBG pO2 VBG HCO3 VBG O2 Saturation VBG Base Excess Sodium Potassium Chloride Carbon Dioxide Anion Gap BUN Creatinine Estim Creat Clear Calc Estimated GFR POC Glucose 147 H 112 123 H Random Glucose Calcium Phosphorus Magnesium Ferritin Total Bilirubin AST ALT Alkaline Phosphatase C-Reactive Protein B-Natriuretic Peptide Total Protein Albumin 01/16/21 01/16/21 01/16/21 01:00 05:10 05:10 WBC 10.4 RBC 2.87 L Hgb 7.8 L Hct 25.0 L MCV 87.1 MCH 27.2 MCHC 31.2 RDW 14.7 Plt Count 119 L MPV 12.5 H Absolute Nucleated RBC 0.000 Nucleated RBC % (auto) 0.0 D-Dimer 2154 VBG pH VBG pCO2 VBG pO2 VBG HCO3 VBG O2 Saturation VBG Base Excess Sodium Potassium Chloride Carbon Dioxide Anion Gap BUN Creatinine Estim Creat Clear Calc Estimated GFR POC Glucose 104 Random Glucose Calcium Phosphorus Magnesium Ferritin Total Bilirubin AST ALT Alkaline Phosphatase C-Reactive Protein B-Natriuretic Peptide Total Protein Albumin 01/16/21 01/16/21 01/16/21 05:10 05:10 05:18 WBC RBC Hgb Hct MCV MCH MCHC RDW Plt Count MPV Absolute Nucleated RBC Nucleated RBC % (auto) D-Dimer VBG pH 7.28 L VBG pCO2 38 VBG pO2 55 VBG HCO3 18 L VBG O2 Saturation 79.0 VBG Base Excess -7.5 Sodium 143 Potassium 4.0 Chloride 114 H Carbon Dioxide 19 L Anion Gap 14 BUN 87 H* Creatinine 2.74 H Estim Creat Clear Calc 49.5 Estimated GFR 25 POC Glucose Random Glucose 131 H D Calcium 8.3 L Phosphorus 6.4 H Magnesium 2.4 Ferritin 185 Total Bilirubin 0.3 AST 20 ALT 13 Alkaline Phosphatase 86 C-Reactive Protein 3.90 H B-Natriuretic Peptide 871 H Total Protein 5.7 L Albumin 2.8 L 01/16/21 07:57 WBC RBC Hgb Hct MCV MCH MCHC RDW Plt Count MPV Absolute Nucleated RBC Nucleated RBC % (auto) D-Dimer VBG pH VBG pCO2 VBG pO2 VBG HCO3 VBG O2 Saturation VBG Base Excess Sodium Potassium Chloride Carbon Dioxide Anion Gap BUN Creatinine Estim Creat Clear Calc Estimated GFR POC Glucose 131 H Random Glucose Calcium Phosphorus Magnesium Ferritin Total Bilirubin AST ALT Alkaline Phosphatase C-Reactive Protein B-Natriuretic Peptide Total Protein Albumin Microbiology Microbiology Results: Microbiology 01/15/21 05:54 Blood - Central Line Blood Culture - Preliminary No growth after 24 hours. 01/15/21 05:54 Blood - Central Line Blood Culture - Preliminary No growth after 24 hours. 01/09/21 21:01 Sputum - Suctioned Gram Stain - Final 01/09/21 21:01 Sputum - Suctioned Sputum Culture - Final 01/07/21 05:25 Blood - Venous Blood Culture - Final No growth after 5 days. 01/07/21 05:18 Blood - Venous Blood Culture - Final No growth after 5 days. Progress Note: A&P Assessment and plan (1) Acute respiratory distress syndrome (ARDS) due to COVID-19 virus: Status: Acute (2) Colitis: Status: Acute (3) Acute on chronic kidney failure: Status: Acute (4) Acute respiratory failure with hypoxia: Status: Acute (5) COVID-19: Status: Acute (6) Respiratory failure: Status: Acute (7) Hepatitis C, chronic: Status: Acute (8) Cirrhosis: Status: Acute (9) Asthma exacerbation: Status: Acute (10) Colonic mass: Status: Acute (11) Chronic kidney disease (CKD), stage III (moderate): Status: Acute (12) GI bleed: Status: Acute (13) COVID-19: Status: Acute (14) Opiate abuse, episodic: Status: Acute (15) Hypertension: Status: Acute (16) Diabetes: Status: Acute (17) Amputated below knee: Status: Acute Assessment and Plan: the plan therefore is to wean to minimal level on the fentanyl because of chronic opiate abuse and potentially wean to minimal levels on his other sedation and this way decrease his IV intake and see if his CVP comes down naturally and therefore may be allow us to wean some of the FiO2 and also potentially clamp his a chest tube and recheck x-ray in if there is no further air leak either later today or tomorrow morning remove the chest tube Quality Stroke Does the patient have a stroke diagnosis?: No VTE Prior VTE?: No VTE Risk Level:: Medical - moderate - high VTE Device Contraindication: Treatment Not Indicated VTE Drug Contraindication: N/A - Med Ordered
[2021-01-16 08:22] LABS: Procalcitonin 0.26 ng/mL
[2021-01-16] MEDS: propofoL 1,000 MG/100 ML VIAL 23.8 MG IVCONT (09:26)
[2021-01-16 09:38] LABS: Glucose, Whole Blood 123 mg/dL (60-115)
[2021-01-16 10:56] LABS: Glucose, Whole Blood 146 mg/dL (60-115)
[2021-01-16] MEDS: propofoL 1,000 MG/100 ML VIAL 31.73 MG IVCONT (11:58)
[2021-01-16] MEDS: Insulin Regular/NS 100 UNIT/100 ML PLAST..BAG IVCONT (12:00)
[2021-01-16 13:06] LABS: Glucose, Whole Blood 167 mg/dL (60-115)
--- NOTE | 2021-01-16 13:22 | W.PM.CCHP ---
Procedures Date of Service Date of Service: 01/16/21 Intubation Intubation Comments: patient in acute respiratory distress with audible cuff leak and dropping oxygen saturation and therefore utilizing glide scope guidance re-intubation with a 7. 0.5 endotracheal tube to a level of 28 cm at the lip with visualized vocal cords went without complication Consent for Procedure: Emergent-no informed consent obtained Time out performed: Yes Sedative: versed Laryngoscope: fiber optic video scope ET tube size: 7.5 ET tube uncuffed: No Tube secured depth (cm): 28 Tube secured location: lips Tube placement confirmation: visualized tube passing through cords, equal breath sounds bilaterally, no breath sounds over epigastrium and confirmation by capnometry Patient tolerated procedure: well and no complications Intubation complications: none
[2021-01-16] MEDS: propofoL 200 MG/20 ML VIAL 20 MG IVPUSH (13:43)
[2021-01-16] MEDS: propofoL 1,000 MG/100 ML VIAL 39.66 MG IVCONT ×5 (14:22→23:34)
[2021-01-16] MEDS: fentaNYL 100 MCG PATCH.TD72 TRANSDERMA (15:31)
[2021-01-16] MEDS: Midazolam HCl/NS 50 MG/50 ML PLAST..BAG IVCONT (15:31)
--- NOTE | 2021-01-16 16:36 | PM.PNNEP ---
Subjective Subjective Date of Service: 01/16/21 Interval history: remains intubated Cr rising COVID ATN Losartan needs to be D/Cd Physical Exam Vital Signs: Vital Signs: Last Vital Signs Temp 99.9 F 01/16/21 15:57 Pulse 89 01/16/21 15:57 Resp 29 H 01/16/21 15:57 BP 171/81 H 01/16/21 15:57 Pulse Ox 95 01/16/21 15:57 Oxygen Flow Rate 100 01/07/21 05:11 Body Mass Index 37.5 Resp: Auscultation: rhonchi Cardio: Rate: regular rate Rhythm: regular rhythm GI: Inspection: Yes normal to inspection Objective Data Labs CBC & Chem 7: 01/16/21 05:10 01/16/21 05:10 Labs: Laboratory Results - last 24 hr 01/15/21 01/15/21 01/15/21 16:59 20:38 22:55 WBC RBC Hgb Hct MCV MCH MCHC RDW Plt Count MPV Absolute Nucleated RBC Nucleated RBC % (auto) D-Dimer VBG pH VBG pCO2 VBG pO2 VBG HCO3 VBG O2 Saturation VBG Base Excess Sodium Potassium Chloride Carbon Dioxide Anion Gap BUN Creatinine Estim Creat Clear Calc Estimated GFR POC Glucose 147 H 112 123 H Random Glucose Calcium Phosphorus Magnesium Ferritin Total Bilirubin AST ALT Alkaline Phosphatase C-Reactive Protein B-Natriuretic Peptide Total Protein Albumin Procalcitonin 01/16/21 01/16/21 01/16/21 01:00 05:10 05:10 WBC 10.4 RBC 2.87 L Hgb 7.8 L Hct 25.0 L MCV 87.1 MCH 27.2 MCHC 31.2 RDW 14.7 Plt Count 119 L MPV 12.5 H Absolute Nucleated RBC 0.000 Nucleated RBC % (auto) 0.0 D-Dimer 2154 VBG pH VBG pCO2 VBG pO2 VBG HCO3 VBG O2 Saturation VBG Base Excess Sodium Potassium Chloride Carbon Dioxide Anion Gap BUN Creatinine Estim Creat Clear Calc Estimated GFR POC Glucose 104 Random Glucose Calcium Phosphorus Magnesium Ferritin Total Bilirubin AST ALT Alkaline Phosphatase C-Reactive Protein B-Natriuretic Peptide Total Protein Albumin Procalcitonin 01/16/21 01/16/21 01/16/21 05:10 05:10 05:10 WBC RBC Hgb Hct MCV MCH MCHC RDW Plt Count MPV Absolute Nucleated RBC Nucleated RBC % (auto) D-Dimer VBG pH VBG pCO2 VBG pO2 VBG HCO3 VBG O2 Saturation VBG Base Excess Sodium 143 Potassium 4.0 Chloride 114 H Carbon Dioxide 19 L Anion Gap 14 BUN 87 H* Creatinine 2.74 H Estim Creat Clear Calc 49.5 Estimated GFR 25 POC Glucose Random Glucose 131 H D Calcium 8.3 L Phosphorus 6.4 H Magnesium 2.4 Ferritin 185 Total Bilirubin 0.3 AST 20 ALT 13 Alkaline Phosphatase 86 C-Reactive Protein 3.90 H B-Natriuretic Peptide 871 H Total Protein 5.7 L Albumin 2.8 L Procalcitonin 0.26 01/16/21 01/16/21 01/16/21 05:18 07:57 09:30 WBC RBC Hgb Hct MCV MCH MCHC RDW Plt Count MPV Absolute Nucleated RBC Nucleated RBC % (auto) D-Dimer VBG pH 7.28 L VBG pCO2 38 VBG pO2 55 VBG HCO3 18 L VBG O2 Saturation 79.0 VBG Base Excess -7.5 Sodium Potassium Chloride Carbon Dioxide Anion Gap BUN Creatinine Estim Creat Clear Calc Estimated GFR POC Glucose 131 H 123 H Random Glucose Calcium Phosphorus Magnesium Ferritin Total Bilirubin AST ALT Alkaline Phosphatase C-Reactive Protein B-Natriuretic Peptide Total Protein Albumin Procalcitonin 01/16/21 01/16/21 10:53 12:57 WBC RBC Hgb Hct MCV MCH MCHC RDW Plt Count MPV Absolute Nucleated RBC Nucleated RBC % (auto) D-Dimer VBG pH VBG pCO2 VBG pO2 VBG HCO3 VBG O2 Saturation VBG Base Excess Sodium Potassium Chloride Carbon Dioxide Anion Gap BUN Creatinine Estim Creat Clear Calc Estimated GFR POC Glucose 146 H 167 H Random Glucose Calcium Phosphorus Magnesium Ferritin Total Bilirubin AST ALT Alkaline Phosphatase C-Reactive Protein B-Natriuretic Peptide Total Protein Albumin Procalcitonin Microbiology Microbiology Results: Microbiology 01/15/21 05:54 Blood - Central Line Blood Culture - Preliminary No growth after 24 hours. 01/15/21 05:54 Blood - Central Line Blood Culture - Preliminary No growth after 24 hours. 01/09/21 21:01 Sputum - Suctioned Gram Stain - Final 01/09/21 21:01 Sputum - Suctioned Sputum Culture - Final 01/07/21 05:25 Blood - Venous Blood Culture - Final No growth after 5 days. 01/07/21 05:18 Blood - Venous Blood Culture - Final No growth after 5 days. Assessment & Plan Assessment and plan (1) Acute respiratory distress syndrome (ARDS) due to COVID-19 virus: Status: Acute (2) Acute on chronic kidney failure: Status: Acute Assessment and Plan: Mr. Preciado is a 45-year-old gnetlmean with uncontrolled DM2, uncontrolled HTN, right BKA, left BKA, osteomyelitis right shoulder, and CKD stage IIIB/IV with BL Cr 2.7-2.8mg/dL who now has COVID ARDS. Renal function stable. Intubated, sedated, with chest tube. Acidosis developing as well. Plan: - Stop Losartan - Consider Lasix for diuresis - Continue IV nicardipine, consider NTG gtt - maintain almonte - no need for [employer] yet. (3) Acute respiratory failure with hypoxia: Status: Acute (4) Hepatitis C, chronic: Status: Acute (5) Cirrhosis: Status: Acute (6) Diabetes: Status: Acute (7) Hypertension: Status: Acute Time Spent With Patient Time: Total time spent is greater than 50% in coordination of care (as documented) at patient's floor/unit and/or counseling patient: Procedures Date of Service Date of Service: 01/16/21 Progress Note: Quality Stroke Does the patient have a stroke diagnosis?: No
[2021-01-16] MEDS: Cisatracurium Besylate 20 MG/10 ML VIAL 10 MG IVPUSH ×2 (16:48→18:00)
[2021-01-16 16:50] LABS: Glucose, Whole Blood 161 mg/dL (60-115)
[2021-01-16 17:08] LABS: Glucose, Whole Blood 150 mg/dL (60-115)
--- NOTE | 2021-01-16 17:10 | PC.NURSE ---
S/E Temp 99.9, WBC 10.4, BC neg x2 Sedation increased throughout shift - currently maxed on Propofol gtt & Versed gtt @ set rate of 2mg/hr Nimbex 10mg IVP administered at 1645 for vent synchrony - baseline TOF 4/4 twitches @ 5mA Nimbex gtt to be started for continued vent synchrony - awaiting from pharmacy Fentanyl gtt titrated off and Fentanyl 100mcg patch applied to left shoulder Absent cough & gag; no pain response; pupils 3mm PERRLA SR, ST depression, no ectopy, HR 80-90's; CVP 9-15 Cardene gtt titrated off and Clonidine 0.1mg patch applied to left shoulder - current BP 143/74 Continued on Losartan 100mg & Labetalol 300mg through OGT R IJ TCL patent - dressing C/D/I changed 01/15 LS rhonchi throughout; small amount of clear inline secretions Recurrent cuff leaks - ETT changed by Dr Hogan to #7.5 ETT, advanced by RT to 29cm per MD CXR obtained for line placement - see report Vent settings changed to AC 20/600/8/90% - TV 560's, MV 14, end tidal 23-25 - MD aware #14F chest tube to right mid clavicular upper chest to -20 suction; no leak; 30cc serous drainage Abdomen large, semi firm, slightly distended, hypoactive BS - tube feeds off w/ paralytic No BM - continued on Lactulose BID Insulin gtt titrated per protocol - POC trending 120-160's - Lantus 50u BID on hold Preston patent - avg 50-125cc/hr, yellow ; total urine output 1900cc No skin integrity concerns; air loss bed & prevlon system in place; bathed; repo q2hr HCP Nancy updated this AM
[2021-01-16 19:52] LABS: Glucose, Whole Blood 111 mg/dL (60-115)
[2021-01-16 21:38] LABS: Glucose, Whole Blood 94 mg/dL (60-115)
[2021-01-16] MEDS: Lactated Ringers 500 ML 999 ML IV (22:25)
--- NOTE | 2021-01-16 22:32 | PC.NURSE ---
Assumed care of pt at 1900. Pt calm on ventilator AC settings. In synch with vent. S/p changing of ETT. Now 7.5 ETT at 29 cm lip zonia. FiO2 is 90%. O2 sat is 91-94%. Propofol and versed infusing at 50 mcg and 2 mg respectively. Nimbex drip infusing at 1 mcg/kg/min. TOF 4 out of 4 twitches at #6 intensity. No changed made. BP 130/67 at start of this shift but has dropped to 87/44, map 50's. CVP 6. CVP has been zerotrimmed and calibrated. TERRA Whitaker aware of BP and orderes given for LR 500 ml and 2 bottles of albumin 25% 100 ml. u/o is good 50-120 ml/hr. Monitor shows NSR, rate 80's, no ectopy. Insulin drip shut off at 1940 for POC 111. Repeat POC 94. Insulin drip remains off.
[2021-01-16] MEDS: Albumin Human 25 % 100 ML IV ×2 (22:53→23:37)
[2021-01-16 23:12] LABS: Glucose, Whole Blood 99 mg/dL (60-115)
[2021-01-17] VITALS (31 sets, daily range): BP systolic 122–179; BP diastolic 59–87; PULSE 88–105; RESP 20–21; TEMP 36.5–37.5; O2SAT 89–96; BMI 37.6
[2021-01-17] MEDS: propofoL 1,000 MG/100 ML VIAL 39.66 MG IVCONT ×2 (02:03→04:28)
[2021-01-17 04:01] LABS: Glucose, Whole Blood 130 mg/dL (60-115)
--- NOTE | 2021-01-17 04:22 | PC.NURSE ---
Bp stable after pt received LR 500 ml and two bottles of 100 ml albumin 25%. currently 150/69. CVP 9.
[2021-01-17] MEDS: Heparin Sodium,Porcine 5,000 UNIT/ML VIAL 5000 UNIT SUBCUT ×3 (04:28→19:51)
[2021-01-17 05:30] LABS: VBG HCO3 16 mmol/L (22-26); VBG pCO2 38 mmHg; VBG pH 7.23 (7.32-7.43); VBG pO2 73 mmHg
[2021-01-17 05:43] LABS: Basophils Percent Auto 0.1 % (0-2); Imm Gran Abs Auto 0.18 X10*3/uL (0.00-0.03); MANUAL DIFF FLAG SCAN; Mean Corpuscular Hemoglobin 27.2 pg (27.0-33.0); Red Cell Distribution Width 14.9 % (11.0-16.0); SCAN SMEAR FLAG 1
[2021-01-17 05:45] LABS: Hematocrit 22.5 % (42-52); Imm Gran Pct Auto 1.3 % (0.0-0.4); Lymphocytes Absolute Auto 0.4 X10*3/uL (1.2-4.9); Lymphocytes Percent Auto 3.1 % (20-40); Mean Corpuscular HGB Conc 30.7 g/dl (31.0-36.0); Mean Corpuscular Volume 88.6 fL (80-98); Mean Platelet Volume 12.5 fL (9.4-12.4); Monocytes Absolute Auto 0.6 X10*3/uL (0.1-1.2); Monocytes Percent Auto 4.3 % (2-11); Neutrophils Absolute Auto 12.2 X10*3/uL (2.0-8.3); Neutrophils Percent Auto 91.2 % (45-73); Platelet Count 104 X10*3/uL (160-400); Red Blood Count 2.54 X10*6/uL (4.60-5.80); White Blood Count 13.4 X10*3/uL (4.8-10.8)
[2021-01-17 05:46] LABS: Venous Blood Gas Refer to POC result
[2021-01-17 05:50] LABS: INTERNATIONAL NORM RATIO 1.1 (0.9-1.1); PLT ABN DIST 1
[2021-01-17 05:51] LABS: Hemoglobin 6.9 g/dl (14.0-18.0)
[2021-01-17 05:52] LABS: Partial Thromboplastin Time 26.3 SEC (24.1-38.0)
[2021-01-17 06:02] LABS: D Dimer 2377 NG/ML
[2021-01-17 06:08] LABS: B Type Natriuretic Peptide 799 pg/mL (<100)
[2021-01-17 06:09] LABS: Alanine Aminotransferase 12 U/L (0-40); Albumin Level 2.9 g/dL (3.5-5.0); Alkaline Phosphatase 68 U/L (39-117); Anion Gap 16 (12-20); Aspartate Amino Transferase 17 U/L (5-37); Bilirubin Total 0.4 mg/dL (0.0-1.0); Blood Urea Nitrogen 90 mg/dL (9-16); C Reactive Protein 6.92 mg/dL (< or = 0.50); Calcium 8.2 mg/dL (8.4-10.2); Carbon Dioxide 17 mmol/L (22-29); Chloride 115 mmol/L (96-108); Creatinine Clr Calc Pharmacy 48.5; Estimated Glomerular Filt Rate 25; Glucose Random 134 mg/dL (60-115); Magnesium 2.5 mg/dL (1.6-2.6); Phosphorus 6.6 mg/dL (2.7-4.5); Potassium 3.9 mmol/L (3.3-5.1); Sodium 144 mmol/L (135-145); Total Protein 5.3 g/dL (6.5-8.0)
[2021-01-17 06:11] LABS: Glucose, Whole Blood 136 mg/dL (60-115)
[2021-01-17 06:11] LABS: SLIDE REVIEW VERIFIED
[2021-01-17] MEDS: Midazolam HCl/NS 50 MG/50 ML PLAST..BAG IVCONT ×3 (06:40→23:28)
--- NOTE | 2021-01-17 06:49 | PC.NURSE ---
Critical labs reported to provider...Hgb 6.9, Bun 90 and Vbg Ph 7.23. Sodium bicarb ordered via ogt. Will d/c propofol due to acidosis and versed increased to 5 mg/hr. Propofol decreased to 25 mcg/kg/min and will be d/c'd in 30 min.
[2021-01-17] MEDS: Lactulose 20 GM/30 ML SOLUTION OG-TUBE (08:06)
[2021-01-17] MEDS: Chlorhexidine Gluc Oral Rinse 15 ML MOUTHWASH BUCCAL ×3 (08:06→19:51)
[2021-01-17] MEDS: Labetalol HCL 100 MG TABLET 300 MG OG-TUBE (08:07)
[2021-01-17] MEDS: Sodium Bicarbonate 650 MG TABLET PO ×3 (08:07→17:12)
[2021-01-17] MEDS: Cholecalciferol (Vitamin D3) 25 MCG TABLET 50 MCG OG-TUBE (08:07)
[2021-01-17] MEDS: Sevelamer Carbonate Powder 800 MG POWD.PACK 1600 MG PO ×3 (08:07→17:12)
[2021-01-17] MEDS: Aspirin 81 MG TAB.CHEW OG-TUBE (08:08)
[2021-01-17] MEDS: methylPREDNISolone Sod Succ 125 MG/2 ML VIAL 80 MG IVPUSH ×2 (08:11→19:51)
[2021-01-17] MEDS: Thiamine HCL 200 MG/2 ML VIAL IVPUSH (08:11)
[2021-01-17 08:47] LABS: Lactic Acid 0.5 mmol/L (0.5-2.0)
[2021-01-17 08:52] LABS: Glucose, Whole Blood 125 mg/dL (60-115)
--- NOTE | 2021-01-17 10:09 | MHC.CLN ---
F/U TF ON HOLD SINCE 01/16 R/T NIMBEX DRIP PROPOFOL OFF AT THIS TIME IF TF NEEDED; RECOMMEND NEPRO AT MAX GOAL RATE 40CC/HR WITH 300CC FREE WATER FLSUHES Q 6 HOURS TO PROVIDE 1728KCALS (23KCALS/KG), 78G PROTEIN (1.0G/KG), 1898CC TOTAL WATER FROM FORMULA AND FLUSHES (26CC/KG BASED ON IBW) MONITOR TOLERANCE, RESIDUALS AND LYTES
[2021-01-17 12:14] LABS: Glucose, Whole Blood 111 mg/dL (60-115)
--- NOTE | 2021-01-17 12:33 | PM.CCPN ---
Subjective Subjective Date of Service: 01/17/21 Interval History: 45-year-old insulin-dependent diabetic with peripheral vasculopathy retinopathy and nephropathy with chronic stage III renal failure and bilateral BK amputee who, despite the Abhay and Abhay vaccination several weeks later developed COVID 19 pneumonitis with progressive hypoxic respiratory failure and ARDS requiring intubation and then complicated by spontaneous pneumothorax with right-sided chest tube and currently no further air leak but still with high minute ventilatory requirement of 15 L per minute as well as high FiO2 at 70% so certainly not ready for weaning but thus far no signs of secondary infection developing a non anion gap, hyperchloremic metabolic acidosis presumably renal tubular acidosis and progressive azotemia acutely superimposed on the chronic level now with BUN of 90 but moderately hypertensive with a CVP fluctuating between a low of 3 and a high of 10 but right now for ventilator management is requiring and Nimbex drip to keep him synchronous with the volume control mode on the ventilator and will evaluate the healing of the pneumothorax by clamping his chest tube and possibly discontinue the chest tube if we can oral bicarb was started via the the no his OG tube and the only issue superimposed on his chronic anemia is an acute 1 g drop today and thus far stool guaiac negative but hemoglobin is 6.9 and I doubt that as an element of hemolysis the Critical Care Time (minutes): 45 Physical Exam Vital Signs: Vital Signs: Last Vital Signs Temp 98.2 F 01/17/21 12:00 Pulse 92 01/17/21 12:00 Resp 20 01/17/21 12:00 BP 168/83 H 01/17/21 12:00 Pulse Ox 92 01/17/21 12:00 Oxygen Flow Rate 100 01/07/21 05:11 Body Mass Index 37.6 Const: Other: sedated and intubated cardiac exam with the above CVP no significant LV dysfunction has adequate bilateral carotid upstrokes chest with bilateral coarse ventilatory sounds abdomen is soft with no organomegaly Objective Data Labs CBC & Chem 7: 01/17/21 05:25 01/17/21 05:25 Labs: Laboratory Results - last 24 hr 01/16/21 01/16/21 01/16/21 12:57 14:59 17:00 WBC RBC Hgb Hct MCV MCH MCHC RDW Plt Count MPV Immature Gran % (Auto) Neut % (Auto) Lymph % (Auto) [place] % (Auto) Eos % (Auto) Baso % (Auto) Lymph # (Auto) [place] # (Auto) Eos # (Auto) Baso # (Auto) Abs Immat Gran (auto) Absolute Neuts (auto) Absolute Nucleated RBC Nucleated RBC % (auto) Smear Tech's Comments Smear Path Review PT INR APTT D-Dimer VBG pH VBG pCO2 VBG pO2 VBG HCO3 VBG O2 Saturation VBG Base Excess Sodium Potassium Chloride Carbon Dioxide Anion Gap BUN Creatinine Estim Creat Clear Calc Estimated GFR POC Glucose 167 H 161 H 150 H Random Glucose Lactic Acid Calcium Phosphorus Magnesium Total Bilirubin AST ALT Alkaline Phosphatase C-Reactive Protein B-Natriuretic Peptide Total Protein Albumin 01/16/21 01/16/21 01/16/21 19:38 21:26 22:58 WBC RBC Hgb Hct MCV MCH MCHC RDW Plt Count MPV Immature Gran % (Auto) Neut % (Auto) Lymph % (Auto) [place] % (Auto) Eos % (Auto) Baso % (Auto) Lymph # (Auto) [place] # (Auto) Eos # (Auto) Baso # (Auto) Abs Immat Gran (auto) Absolute Neuts (auto) Absolute Nucleated RBC Nucleated RBC % (auto) Smear Tech's Comments Smear Path Review PT INR APTT D-Dimer VBG pH VBG pCO2 VBG pO2 VBG HCO3 VBG O2 Saturation VBG Base Excess Sodium Potassium Chloride Carbon Dioxide Anion Gap BUN Creatinine Estim Creat Clear Calc Estimated GFR POC Glucose 111 94 99 Random Glucose Lactic Acid Calcium Phosphorus Magnesium Total Bilirubin AST ALT Alkaline Phosphatase C-Reactive Protein B-Natriuretic Peptide Total Protein Albumin 01/17/21 01/17/21 01/17/21 03:51 05:22 05:25 WBC 13.4 H RBC 2.54 L Hgb 6.9 L* Hct 22.5 L MCV 88.6 MCH 27.2 MCHC 30.7 L RDW 14.9 Plt Count 104 L MPV 12.5 H Immature Gran % (Auto) 1.3 H Neut % (Auto) 91.2 H Lymph % (Auto) 3.1 L [place] % (Auto) 4.3 Eos % (Auto) 0.0 Baso % (Auto) 0.1 Lymph # (Auto) 0.4 L [place] # (Auto) 0.6 Eos # (Auto) 0.0 Baso # (Auto) 0.0 Abs Immat Gran (auto) 0.18 H Absolute Neuts (auto) 12.2 H Absolute Nucleated RBC 0.000 Nucleated RBC % (auto) 0.0 Smear Tech's Comments VERIFIED Smear Path Review SEE NOTE PT INR APTT D-Dimer VBG pH 7.23 L VBG pCO2 38 VBG pO2 73 VBG HCO3 16 L VBG O2 Saturation 90.0 VBG Base Excess -10.0 Sodium Potassium Chloride Carbon Dioxide Anion Gap BUN Creatinine Estim Creat Clear Calc Estimated GFR POC Glucose 130 H Random Glucose Lactic Acid Calcium Phosphorus Magnesium Total Bilirubin AST ALT Alkaline Phosphatase C-Reactive Protein B-Natriuretic Peptide Total Protein Albumin 01/17/21 01/17/21 01/17/21 05:25 05:25 05:25 WBC RBC Hgb Hct MCV MCH MCHC RDW Plt Count MPV Immature Gran % (Auto) Neut % (Auto) Lymph % (Auto) [place] % (Auto) Eos % (Auto) Baso % (Auto) Lymph # (Auto) [place] # (Auto) Eos # (Auto) Baso # (Auto) Abs Immat Gran (auto) Absolute Neuts (auto) Absolute Nucleated RBC Nucleated RBC % (auto) Smear Tech's Comments Smear Path Review PT 12.0 INR 1.1 APTT 26.3 D D-Dimer 2377 VBG pH VBG pCO2 VBG pO2 VBG HCO3 VBG O2 Saturation VBG Base Excess Sodium 144 Potassium 3.9 Chloride 115 H Carbon Dioxide 17 L Anion Gap 16 BUN 90 H* Creatinine 2.78 H Estim Creat Clear Calc 48.5 Estimated GFR 25 POC Glucose Random Glucose 134 H Lactic Acid Calcium 8.2 L Phosphorus 6.6 H Magnesium 2.5 Total Bilirubin 0.4 AST 17 ALT 12 Alkaline Phosphatase 68 D C-Reactive Protein 6.92 H B-Natriuretic Peptide 799 H Total Protein 5.3 L Albumin 2.9 L 01/17/21 01/17/21 01/17/21 05:53 07:55 08:48 WBC RBC Hgb Hct MCV MCH MCHC RDW Plt Count MPV Immature Gran % (Auto) Neut % (Auto) Lymph % (Auto) [place] % (Auto) Eos % (Auto) Baso % (Auto) Lymph # (Auto) [place] # (Auto) Eos # (Auto) Baso # (Auto) Abs Immat Gran (auto) Absolute Neuts (auto) Absolute Nucleated RBC Nucleated RBC % (auto) Smear Tech's Comments Smear Path Review PT INR APTT D-Dimer VBG pH VBG pCO2 VBG pO2 VBG HCO3 VBG O2 Saturation VBG Base Excess Sodium Potassium Chloride Carbon Dioxide Anion Gap BUN Creatinine Estim Creat Clear Calc Estimated GFR POC Glucose 136 H 125 H Random Glucose Lactic Acid 0.5 Calcium Phosphorus Magnesium Total Bilirubin AST ALT Alkaline Phosphatase C-Reactive Protein B-Natriuretic Peptide Total Protein Albumin 01/17/21 12:07 WBC RBC Hgb Hct MCV MCH MCHC RDW Plt Count MPV Immature Gran % (Auto) Neut % (Auto) Lymph % (Auto) [place] % (Auto) Eos % (Auto) Baso % (Auto) Lymph # (Auto) [place] # (Auto) Eos # (Auto) Baso # (Auto) Abs Immat Gran (auto) Absolute Neuts (auto) Absolute Nucleated RBC Nucleated RBC % (auto) Smear Tech's Comments Smear Path Review PT INR APTT D-Dimer VBG pH VBG pCO2 VBG pO2 VBG HCO3 VBG O2 Saturation VBG Base Excess Sodium Potassium Chloride Carbon Dioxide Anion Gap BUN Creatinine Estim Creat Clear Calc Estimated GFR POC Glucose 111 Random Glucose Lactic Acid Calcium Phosphorus Magnesium Total Bilirubin AST ALT Alkaline Phosphatase C-Reactive Protein B-Natriuretic Peptide Total Protein Albumin Microbiology Microbiology Results: Microbiology 01/15/21 05:54 Blood - Central Line Blood Culture - Preliminary No growth after 48 hours. 01/15/21 05:54 Blood - Central Line Blood Culture - Preliminary No growth after 48 hours. 01/09/21 21:01 Sputum - Suctioned Gram Stain - Final 01/09/21 21:01 Sputum - Suctioned Sputum Culture - Final 01/07/21 05:25 Blood - Venous Blood Culture - Final No growth after 5 days. 01/07/21 05:18 Blood - Venous Blood Culture - Final No growth after 5 days. Progress Note: A&P Assessment and plan (1) Acute respiratory distress syndrome (ARDS) due to COVID-19 virus: Status: Acute (2) Colitis: Status: Acute (3) Acute on chronic kidney failure: Status: Acute (4) Acute respiratory failure with hypoxia: Status: Acute (5) COVID-19: Status: Acute (6) Respiratory failure: Status: Acute (7) Hepatitis C, chronic: Status: Acute (8) Cirrhosis: Status: Acute (9) Asthma exacerbation: Status: Acute (10) Colonic mass: Status: Acute (11) Chronic kidney disease (CKD), stage III (moderate): Status: Acute (12) GI bleed: Status: Acute (13) COVID-19: Status: Acute (14) Opiate abuse, episodic: Status: Acute (15) Hypertension: Status: Acute (16) Diabetes: Status: Acute (17) Amputated below knee: Status: Acute Assessment and Plan: for today I am just going to repeat blood work to track his hemoglobin level been between urinalysis and LDH level hopefully figure out or be able to rule out any hemolytic component track his stool guaiac because of a questionable history of a colonic mass and see whether not we can discontinue his chest tube Quality Stroke Does the patient have a stroke diagnosis?: No VTE Prior VTE?: No VTE Risk Level:: Medical - moderate - high VTE Device Contraindication: Treatment Not Indicated VTE Drug Contraindication: N/A - Med Ordered
[2021-01-17 13:27] LABS: VBG Base Excess -8.1 mmol/L; VBG HCO3 18 mmol/L (22-26); VBG pCO2 38 mmHg; VBG pH 7.27 (7.32-7.43); VBG pO2 47 mmHg
[2021-01-17 13:31] LABS: Basophils Percent Auto 0.1 % (0-2); Hemoglobin 7.4 g/dl (14.0-18.0); Lymphocytes Absolute Auto 0.3 X10*3/uL (1.2-4.9); MANUAL DIFF FLAG SCAN; Mean Corpuscular HGB Conc 30.8 g/dl (31.0-36.0); Mean Corpuscular Hemoglobin 27.2 pg (27.0-33.0); Mean Corpuscular Volume 88.2 fL (80-98); Mean Platelet Volume 12.4 fL (9.4-12.4); Monocytes Absolute Auto 0.3 X10*3/uL (0.1-1.2); Neutrophils Absolute Auto 9.1 X10*3/uL (2.0-8.3); Neutrophils Percent Auto 92.9 % (45-73); Platelet Count 107 X10*3/uL (160-400); Red Blood Count 2.72 X10*6/uL (4.60-5.80); Red Cell Distribution Width 14.9 % (11.0-16.0); SCAN SMEAR FLAG 1; White Blood Count 9.8 X10*3/uL (4.8-10.8)
[2021-01-17 13:54] LABS: Glucose Urine UA NEG (NEG); Leukocyte Esterase Urine NEG (NEG); Nitrite Urine NEG (NEG); Urine Blood TRACE (NEG); Urine Ketones NEG (NEG); Urine Protein 3+ MG/DL (NEG-TRACE)
[2021-01-17 13:56] LABS: Appearance Urine CLEAR; Color Urine YELLOW
[2021-01-17 14:03] LABS: Amorphous Sediment Urine 1+ /LPF; Bacteria Urine TRACE /LPF; Squamous Epithelial Cell Urine 1+ /LPF
[2021-01-17 14:10] LABS: Lactate Dehydrogenase 378 U/L (118-273)
--- NOTE | 2021-01-17 14:13 | PC.NURSE ---
Chest tube PleuraVac removed from suction and placed to waterseal at 13:30 per verbal MD order from Dr. Grimm. No drainage noted. Patient remains syncronous with vent on Nimbex and Versed, AC settings 20/600/70/8.
--- NOTE | 2021-01-17 15:11 | MHC.CM.PN ---
Pt remains in ICU on vent support secondary to COVID: pt had a pigtail chest tube placed over the weekend - pt status remains very fragile: calls placed to Ever, pt's mother and dtr to update them on status. Finalization of d/c plans to be determined once needs are better known.
--- NOTE | 2021-01-17 17:24 | PM.PNNEP ---
Subjective Subjective Date of Service: 01/17/21 Interval history: Seen and examined. Events noted. Case d/w ICU team Physical Exam Vital Signs: Vital Signs: Last Vital Signs Temp 98.6 F 01/17/21 17:00 Pulse 97 01/17/21 17:00 Resp 21 H 01/17/21 17:00 BP 159/78 H 01/17/21 17:00 Pulse Ox 93 01/17/21 17:00 Oxygen Flow Rate 100 01/07/21 05:11 Body Mass Index 37.6 Const: General: no acute distress, alert, awake and anxious Nutritional Appearance: obese Eyes: Sclerae: sclerae normal EOM: EOMs intact bilaterally Neck: Neck: Yes no lymphadenopathy, Yes trachea midline and Yes supple Resp: Effort & Inspection: normal respiratory effort and no respiratory distress ( On high-flow nasal cannula and non-rebreather) Auscultation: crackles ( diffuse bilateral) and rhonchi Cardio: Rate: regular rate and tachycardic Rhythm: regular rhythm Heart sounds: no gallops, no murmurs and no rubs GI: Inspection: Yes normal to inspection Palpation (GI): Soft to palpation and Other GI palpation findings present ( Nontender) Auscultation: normal bowel sounds Extrem: General: No clubbing, No cyanosis and Yes other ( bilateral BKA) Objective Data Labs CBC & Chem 7: 01/17/21 13:22 01/17/21 05:25 Labs: Laboratory Results - last 24 hr 01/16/21 01/16/21 01/16/21 19:38 21:26 22:58 WBC RBC Hgb Hct MCV MCH MCHC RDW Plt Count MPV Immature Gran % (Auto) Neut % (Auto) Lymph % (Auto) [place] % (Auto) Eos % (Auto) Baso % (Auto) Lymph # (Auto) [place] # (Auto) Eos # (Auto) Baso # (Auto) Abs Immat Gran (auto) Absolute Neuts (auto) Absolute Nucleated RBC Nucleated RBC % (auto) Smear Tech's Comments Smear Path Review PT INR APTT D-Dimer VBG pH VBG pCO2 VBG pO2 VBG HCO3 VBG O2 Saturation VBG Base Excess Sodium Potassium Chloride Carbon Dioxide Anion Gap BUN Creatinine Estim Creat Clear Calc Estimated GFR POC Glucose 111 94 99 Random Glucose Lactic Acid Calcium Phosphorus Magnesium Total Bilirubin AST ALT Alkaline Phosphatase Lactate Dehydrogenase Total Creatine Kinase C-Reactive Protein B-Natriuretic Peptide Total Protein Albumin Urine Color Urine Appearance Urine pH Ur Specific [place] Urine Protein Urine Glucose (UA) Urine Ketones Urine Blood Urine Nitrite Ur Leukocyte Esterase Urine RBC Urine WBC Ur Squamous Epith Cells Amorphous Sediment Urine Bacteria 01/17/21 01/17/21 01/17/21 03:51 05:22 05:25 WBC 13.4 H RBC 2.54 L Hgb 6.9 L* Hct 22.5 L MCV 88.6 MCH 27.2 MCHC 30.7 L RDW 14.9 Plt Count 104 L MPV 12.5 H Immature Gran % (Auto) 1.3 H Neut % (Auto) 91.2 H Lymph % (Auto) 3.1 L [place] % (Auto) 4.3 Eos % (Auto) 0.0 Baso % (Auto) 0.1 Lymph # (Auto) 0.4 L [place] # (Auto) 0.6 Eos # (Auto) 0.0 Baso # (Auto) 0.0 Abs Immat Gran (auto) 0.18 H Absolute Neuts (auto) 12.2 H Absolute Nucleated RBC 0.000 Nucleated RBC % (auto) 0.0 Smear Tech's Comments VERIFIED Smear Path Review SEE NOTE PT INR APTT D-Dimer VBG pH 7.23 L VBG pCO2 38 VBG pO2 73 VBG HCO3 16 L VBG O2 Saturation 90.0 VBG Base Excess -10.0 Sodium Potassium Chloride Carbon Dioxide Anion Gap BUN Creatinine Estim Creat Clear Calc Estimated GFR POC Glucose 130 H Random Glucose Lactic Acid Calcium Phosphorus Magnesium Total Bilirubin AST ALT Alkaline Phosphatase Lactate Dehydrogenase Total Creatine Kinase C-Reactive Protein B-Natriuretic Peptide Total Protein Albumin Urine Color Urine Appearance Urine pH Ur Specific [place] Urine Protein Urine Glucose (UA) Urine Ketones Urine Blood Urine Nitrite Ur Leukocyte Esterase Urine RBC Urine WBC Ur Squamous Epith Cells Amorphous Sediment Urine Bacteria 01/17/21 01/17/21 01/17/21 05:25 05:25 05:25 WBC RBC Hgb Hct MCV MCH MCHC RDW Plt Count MPV Immature Gran % (Auto) Neut % (Auto) Lymph % (Auto) [place] % (Auto) Eos % (Auto) Baso % (Auto) Lymph # (Auto) [place] # (Auto) Eos # (Auto) Baso # (Auto) Abs Immat Gran (auto) Absolute Neuts (auto) Absolute Nucleated RBC Nucleated RBC % (auto) Smear Tech's Comments Smear Path Review PT 12.0 INR 1.1 APTT 26.3 D D-Dimer 2377 VBG pH VBG pCO2 VBG pO2 VBG HCO3 VBG O2 Saturation VBG Base Excess Sodium 144 Potassium 3.9 Chloride 115 H Carbon Dioxide 17 L Anion Gap 16 BUN 90 H* Creatinine 2.78 H Estim Creat Clear Calc 48.5 Estimated GFR 25 POC Glucose Random Glucose 134 H Lactic Acid Calcium 8.2 L Phosphorus 6.6 H Magnesium 2.5 Total Bilirubin 0.4 AST 17 ALT 12 Alkaline Phosphatase 68 D Lactate Dehydrogenase Total Creatine Kinase C-Reactive Protein 6.92 H B-Natriuretic Peptide 799 H Total Protein 5.3 L Albumin 2.9 L Urine Color Urine Appearance Urine pH Ur Specific [place] Urine Protein Urine Glucose (UA) Urine Ketones Urine Blood Urine Nitrite Ur Leukocyte Esterase Urine RBC Urine WBC Ur Squamous Epith Cells Amorphous Sediment Urine Bacteria 01/17/21 01/17/21 01/17/21 05:53 07:55 08:48 WBC RBC Hgb Hct MCV MCH MCHC RDW Plt Count MPV Immature Gran % (Auto) Neut % (Auto) Lymph % (Auto) [place] % (Auto) Eos % (Auto) Baso % (Auto) Lymph # (Auto) [place] # (Auto) Eos # (Auto) Baso # (Auto) Abs Immat Gran (auto) Absolute Neuts (auto) Absolute Nucleated RBC Nucleated RBC % (auto) Smear Tech's Comments Smear Path Review PT INR APTT D-Dimer VBG pH VBG pCO2 VBG pO2 VBG HCO3 VBG O2 Saturation VBG Base Excess Sodium Potassium Chloride Carbon Dioxide Anion Gap BUN Creatinine Estim Creat Clear Calc Estimated GFR POC Glucose 136 H 125 H Random Glucose Lactic Acid 0.5 Calcium Phosphorus Magnesium Total Bilirubin AST ALT Alkaline Phosphatase Lactate Dehydrogenase Total Creatine Kinase C-Reactive Protein B-Natriuretic Peptide Total Protein Albumin Urine Color Urine Appearance Urine pH Ur Specific [place] Urine Protein Urine Glucose (UA) Urine Ketones Urine Blood Urine Nitrite Ur Leukocyte Esterase Urine RBC Urine WBC Ur Squamous Epith Cells Amorphous Sediment Urine Bacteria 01/17/21 01/17/21 01/17/21 12:07 13:20 13:22 WBC 9.8 RBC 2.72 L Hgb 7.4 L Hct 24.0 L MCV 88.2 MCH 27.2 MCHC 30.8 L RDW 14.9 Plt Count 107 L MPV 12.4 Immature Gran % (Auto) 1.0 H Neut % (Auto) 92.9 H Lymph % (Auto) 3.0 L [place] % (Auto) 3.0 Eos % (Auto) 0.0 Baso % (Auto) 0.1 Lymph # (Auto) 0.3 L [place] # (Auto) 0.3 Eos # (Auto) 0.0 Baso # (Auto) 0.0 Abs Immat Gran (auto) 0.10 H Absolute Neuts (auto) 9.1 H Absolute Nucleated RBC 0.000 Nucleated RBC % (auto) 0.0 Smear Tech's Comments Smear Path Review PT INR APTT D-Dimer VBG pH 7.27 L VBG pCO2 38 VBG pO2 47 VBG HCO3 18 L VBG O2 Saturation 70.0 VBG Base Excess -8.1 Sodium Potassium Chloride Carbon Dioxide Anion Gap BUN Creatinine Estim Creat Clear Calc Estimated GFR POC Glucose 111 Random Glucose Lactic Acid Calcium Phosphorus Magnesium Total Bilirubin AST ALT Alkaline Phosphatase Lactate Dehydrogenase Total Creatine Kinase C-Reactive Protein B-Natriuretic Peptide Total Protein Albumin Urine Color Urine Appearance Urine pH Ur Specific [place] Urine Protein Urine Glucose (UA) Urine Ketones Urine Blood Urine Nitrite Ur Leukocyte Esterase Urine RBC Urine WBC Ur Squamous Epith Cells Amorphous Sediment Urine Bacteria 01/17/21 01/17/21 13:22 13:26 WBC RBC Hgb Hct MCV MCH MCHC RDW Plt Count MPV Immature Gran % (Auto) Neut % (Auto) Lymph % (Auto) [place] % (Auto) Eos % (Auto) Baso % (Auto) Lymph # (Auto) [place] # (Auto) Eos # (Auto) Baso # (Auto) Abs Immat Gran (auto) Absolute Neuts (auto) Absolute Nucleated RBC Nucleated RBC % (auto) Smear Tech's Comments Smear Path Review PT INR APTT D-Dimer VBG pH VBG pCO2 VBG pO2 VBG HCO3 VBG O2 Saturation VBG Base Excess Sodium Potassium Chloride Carbon Dioxide Anion Gap BUN Creatinine Estim Creat Clear Calc Estimated GFR POC Glucose Random Glucose Lactic Acid Calcium Phosphorus Magnesium Total Bilirubin AST ALT Alkaline Phosphatase Lactate Dehydrogenase 378 H Total Creatine Kinase 92 C-Reactive Protein B-Natriuretic Peptide Total Protein Albumin Urine Color YELLOW Urine Appearance CLEAR Urine pH 6.0 Ur Specific [place] 1.020 Urine Protein 3+ H Urine Glucose (UA) NEG Urine Ketones NEG Urine Blood TRACE Urine Nitrite NEG Ur Leukocyte Esterase NEG Urine RBC 1-4 Urine WBC 1-4 Ur Squamous Epith Cells 1+ Amorphous Sediment 1+ Urine Bacteria TRACE Microbiology Microbiology Results: Microbiology 01/15/21 05:54 Blood - Central Line Blood Culture - Preliminary No growth after 48 hours. 01/15/21 05:54 Blood - Central Line Blood Culture - Preliminary No growth after 48 hours. 01/09/21 21:01 Sputum - Suctioned Gram Stain - Final 01/09/21 21:01 Sputum - Suctioned Sputum Culture - Final 01/07/21 05:25 Blood - Venous Blood Culture - Final No growth after 5 days. 01/07/21 05:18 Blood - Venous Blood Culture - Final No growth after 5 days. Assessment & Plan Assessment and plan (1) Acute respiratory distress syndrome (ARDS) due to COVID-19 virus: Status: Acute (2) Acute on chronic kidney failure: Status: Acute Assessment and Plan: Mr. Preciado is a 45-year-old gnetlmean with uncontrolled DM2, uncontrolled HTN, right BKA, left BKA, osteomyelitis right shoulder, and CKD stage IIIB/IV with BL Cr 2.7-2.8mg/dL who now has COVID ARDS. Renal function stable. Intubated, sedated, with chest tube. Acidosis developing as well. 1. KIRILL: Scr close to bsl 2.5 Scr 2. ADv CKD 4: DN/hep C 3. Incr Bun/Cr: multifact including stds 4. Vol: looks ok for now w cont UOP 5. NAGMA 6. NRP: DN and/or COVID contributing; ques apoL-1 status ( knowing i will not price changer but may help expalin NRP) REC: cont to track renal func; PO NaHCO3; ques titrate STDs; no need for solar site assessment specialist at this time will follo with ICU team (3) Acute respiratory failure with hypoxia: Status: Acute (4) Hepatitis C, chronic: Status: Acute (5) Cirrhosis: Status: Acute (6) Diabetes: Status: Acute (7) Hypertension: Status: Acute Time Spent With Patient Time: Total time spent is greater than 50% in coordination of care (as documented) at patient's floor/unit and/or counseling patient: Procedures Date of Service Date of Service: 01/17/21 Progress Note: Quality Stroke Does the patient have a stroke diagnosis?: No
[2021-01-17 18:00] LABS: Glucose, Whole Blood 103 mg/dL (60-115)
[2021-01-17 18:08] LABS: Venous Blood Gas Refer to POC result
--- NOTE | 2021-01-17 18:18 | PC.NURSE ---
Remains intubated, sedated and paralyzed today for syncrony with vent. See TOF assessment. AC settings 20/600/70/8. RR 20 throughout day. Repositioned q2hrs, skin care provided; bedbath at 1600. Mouth care q2hrs, copious oral secretions suctioned often. Lungs remain rhonchorous minimal inline secretions. Right chest pigtail chest tube to water seal, see earlier note. Scant serous output. Feeds remain off d/t paralytic. Insulin drip off as well Blood sugars being checked four times a day per MD suggestion after rounds. Also discussed free water boluses; these remain on hold while paralytic is in use. No BMs this shift, but (+) flatus noted. [place] putting out excellent amounts of clear yellow urine. Non-pitting edema remains throughout, more so in hands. UA done today, (-). Afternoon labs show mild improvement of H+H, elevated LDH, normal CK. VBG with mildly improved pH. Scheduled meds as ordered. Labs and CXR to be obtained in AM.
[2021-01-17] MEDS: Sodium Bicarbonate 8.4% 50 MEQ/50 ML VIAL IVPUSH (19:51)
[2021-01-17] MEDS: Labetalol HCL 100 MG/20 ML VIAL 10 MG IVPUSH (20:52)
[2021-01-17 23:10] LABS: Glucose, Whole Blood 76 mg/dL (60-115)
[2021-01-17 23:46] LABS: Glucose, Whole Blood 119 mg/dL (60-115)
[2021-01-18] VITALS (42 sets, daily range): BP systolic 128–187; BP diastolic 66–91; PULSE 94–106; RESP 20–35; TEMP 37.4–38.1; O2SAT 88–94; BMI 36.7
[2021-01-18] MEDS: Labetalol HCL 100 MG/20 ML VIAL 10 MG IVPUSH ×3 (02:09→11:27)
[2021-01-18 04:16] LABS: Glucose, Whole Blood 107 mg/dL (60-115)
[2021-01-18] MEDS: Heparin Sodium,Porcine 5,000 UNIT/ML VIAL 5000 UNIT SUBCUT ×3 (04:20→19:59)
--- NOTE | 2021-01-18 04:25 | PC.NURSE ---
Addendum entered by Manny Richards RN 01/18/21 06:44: AM LABS REVIEWED WITH DR HAMLIN--F/U CXR DONE---NIMBEX DRIP HELD---D5W 500ml BOLUS OVER 1 HOUR...CHEST TUBE CLAMPED PER --PLAN FOR F/U CXR IN 2 HOURS PER Addendum entered by Manny Richards RN 01/18/21 05:31: 24 hour fluid balance approx (-) 3 liters...3 kg weight loss over 24 hours Original Note: CARE ASSUMED 23:15...REMAINS TUBED/VENTED VCV MODE..SEDATE WITH VERSED 5 MG/HR..NIMBEX 1 MCG/KG/MIN..OVERBREATHING VENT SLIGHTLY AT HS AND SAO2 89-90%...TOF=4/4..NIMBEX TO 1.2 MCG WITH RR CONTROLLED..REMAINS TOF 4/4 BUT SAO2 91-93%..ICU PA PRESENT...SAO2 GOAL 88% OR >...BP ELEVATED...LABETOLO 10 MG IVP PRN X2 DOSES GIVEN...IMPROVED LAUREN OUTPUT...24 HOUR FLUID BALANCE APPROX (-) 3 LITERS....CHEST TUBE TO H20 SEAL..NO DRAINAGE...NO AIR-LEAK...OG-TUBE REMAINS CLAMPED/NO TUBE FEEDS D/T PARALYTIC THERAPY...12AM MPC=[id number] 4AM POC [id number]...S.TACH HR 102-106..NO ECTOPY..T-MAX 99.7
[2021-01-18 05:26] LABS: VBG Base Excess -4.4 mmol/L; VBG HCO3 20 mmol/L (22-26); VBG pCO2 37 mmHg; VBG pH 7.34 (7.32-7.43); VBG pO2 48 mmHg
[2021-01-18 05:26] LABS: MANUAL DIFF FLAG NO
[2021-01-18 05:30] LABS: Hematocrit 23.9 % (42-52); Hemoglobin 7.5 g/dl (14.0-18.0); Imm Gran Pct Auto 1.1 % (0.0-0.4); Lymphocytes Absolute Auto 0.5 X10*3/uL (1.2-4.9); Mean Corpuscular HGB Conc 31.4 g/dl (31.0-36.0); Mean Corpuscular Hemoglobin 27.3 pg (27.0-33.0); Mean Corpuscular Volume 86.9 fL (80-98); Mean Platelet Volume 11.9 fL (9.4-12.4); Monocytes Absolute Auto 0.6 X10*3/uL (0.1-1.2); Monocytes Percent Auto 6.1 % (2-11); Neutrophils Absolute Auto 8.2 X10*3/uL (2.0-8.3); Neutrophils Percent Auto 87.8 % (45-73); Platelet Count 108 X10*3/uL (160-400); Red Blood Count 2.75 X10*6/uL (4.60-5.80); White Blood Count 9.3 X10*3/uL (4.8-10.8)
[2021-01-18 05:36] LABS: Prothrombin Time 11.9 SEC (9.9-13.0)
[2021-01-18 05:38] LABS: Partial Thromboplastin Time 25.3 SEC (24.1-38.0)
[2021-01-18 05:47] LABS: D Dimer 2302 NG/ML
[2021-01-18 05:57] LABS: B Type Natriuretic Peptide 1305 pg/mL (<100)
[2021-01-18 06:08] LABS: Alanine Aminotransferase 16 U/L (0-40); Albumin Level 2.8 g/dL (3.5-5.0); Alkaline Phosphatase 73 U/L (39-117); Anion Gap 14 (12-20); Aspartate Amino Transferase 18 U/L (5-37); Bilirubin Total 0.7 mg/dL (0.0-1.0); Blood Urea Nitrogen 86 mg/dL (9-16); Calcium 8.6 mg/dL (8.4-10.2); Carbon Dioxide 19 mmol/L (22-29); Chloride 120 mmol/L (96-108); Creatinine Clr Calc Pharmacy 52.4; Estimated Glomerular Filt Rate 27; Glucose Random 112 mg/dL (60-115); Magnesium 2.7 mg/dL (1.6-2.6); Potassium 3.5 mmol/L (3.3-5.1); Sodium 149 mmol/L (135-145); Total Protein 5.5 g/dL (6.5-8.0)
[2021-01-18 06:37] LABS: Venous Blood Gas Refer to POC result
[2021-01-18] MEDS: Dextrose 5 % 500 ML IV (06:39)
[2021-01-18] MEDS: methylPREDNISolone Sod Succ 125 MG/2 ML VIAL 80 MG IVPUSH (07:32)
[2021-01-18] MEDS: Chlorhexidine Gluc Oral Rinse 15 ML MOUTHWASH BUCCAL ×3 (07:32→20:00)
[2021-01-18] MEDS: Lactulose 20 GM/30 ML SOLUTION OG-TUBE (07:32)
[2021-01-18] MEDS: Sevelamer Carbonate Powder 800 MG POWD.PACK 1600 MG PO ×3 (07:32→16:09)
[2021-01-18] MEDS: Sodium Bicarbonate 650 MG TABLET PO ×4 (07:33→20:00)
[2021-01-18] MEDS: Labetalol HCL 100 MG TABLET 300 MG OG-TUBE ×2 (07:33→20:00)
[2021-01-18] MEDS: Aspirin 81 MG TAB.CHEW OG-TUBE (07:33)
[2021-01-18] MEDS: 0.9 % Sodium Chloride Flush 3 ML SYRINGE IVFLUSH ×2 (08:04→15:09)
[2021-01-18] MEDS: Midazolam HCl/NS 50 MG/50 ML PLAST..BAG 6 MG IVCONT (08:33)
--- NOTE | 2021-01-18 08:44 | P.PNCC_ITS ---
Subjective Subjective Date of Service: 01/18/21 Interval History: 45-year-old moderately obese male longstanding insulin- dependent diabetes with nephropathy and peripheral vasculopathy status post bilateral BK amputations and chronic stage III renal failure who presented with acute hypoxic respiratory failure with ARDS related to COVID-19 pneumonitis despite 2 months earlier being inoculated Wood Abhay and Abhay vaccine and he has been intubated of course and sedated with slightly worsening azotemia and acidemia and to non-anion gap mostly hyperchloremic and therefore presumably due to a renal tubular acidosis and responding to bicarb replacement with today's blood gas much better compensated pH of 7.34 serum bicarb is increased 20 and the negative base excess has diminished to the -4 we stopped his paralytic in order to reinstate his feedings because of rising sodium to 149 and he became more difficult to control behavior and then eventually dyssynchronous with the ventilator so rather than deep in sedation we switched him to pressure control and on smaller tidal volume averaging about 450 cc per breath his oxygen saturations actually climbed from the 90 to 90 4% and he seemed to settle down comfortably and therefore we continue with and he is tolerating feedings Critical Care Time (minutes): 35 Physical Exam Vital Signs: Vital Signs: Last Vital Signs Temp 99.5 F 01/18/21 08:00 Pulse 96 01/18/21 08:00 Resp 20 01/18/21 08:00 BP 155/78 H 01/18/21 08:00 Pulse Ox 90 L 01/18/21 08:00 Oxygen Flow Rate 100 01/07/21 05:11 Body Mass Index 36.7 Const: Other: nonfocal neurologically and sedated and intubated CVP approximately 5 in sinus tachycardia with no gallops and no neck vein distension and good bilateral carotid upstrokes no adventitious sounds on the ventilator abdomen soft with no organomegaly Objective Data Labs CBC & Chem 7: 01/18/21 05:20 01/18/21 05:20 Labs: Laboratory Results - last 24 hr 01/17/21 01/17/21 01/17/21 05:25 07:55 08:48 WBC RBC Hgb Hct MCV MCH MCHC RDW Plt Count MPV Immature Gran % (Auto) Neut % (Auto) Lymph % (Auto) [place] % (Auto) Eos % (Auto) Baso % (Auto) Lymph # (Auto) [place] # (Auto) Eos # (Auto) Baso # (Auto) Abs Immat Gran (auto) Absolute Neuts (auto) Absolute Nucleated RBC Nucleated RBC % (auto) Smear Path Review SEE NOTE PT INR APTT D-Dimer VBG pH VBG pCO2 VBG pO2 VBG HCO3 VBG O2 Saturation VBG Base Excess Sodium Potassium Chloride Carbon Dioxide Anion Gap BUN Creatinine Estim Creat Clear Calc Estimated GFR POC Glucose 125 H Random Glucose Lactic Acid 0.5 Calcium Phosphorus Magnesium Total Bilirubin AST ALT Alkaline Phosphatase Lactate Dehydrogenase Total Creatine Kinase C-Reactive Protein B-Natriuretic Peptide Total Protein Albumin Urine Color Urine Appearance Urine pH Ur Specific [place] Urine Protein Urine Glucose (UA) Urine Ketones Urine Blood Urine Nitrite Ur Leukocyte Esterase Urine RBC Urine WBC Ur Squamous Epith Cells Amorphous Sediment Urine Bacteria 01/17/21 01/17/21 01/17/21 12:07 13:20 13:22 WBC 9.8 RBC 2.72 L Hgb 7.4 L Hct 24.0 L MCV 88.2 MCH 27.2 MCHC 30.8 L RDW 14.9 Plt Count 107 L MPV 12.4 Immature Gran % (Auto) 1.0 H Neut % (Auto) 92.9 H Lymph % (Auto) 3.0 L [place] % (Auto) 3.0 Eos % (Auto) 0.0 Baso % (Auto) 0.1 Lymph # (Auto) 0.3 L [place] # (Auto) 0.3 Eos # (Auto) 0.0 Baso # (Auto) 0.0 Abs Immat Gran (auto) 0.10 H Absolute Neuts (auto) 9.1 H Absolute Nucleated RBC 0.000 Nucleated RBC % (auto) 0.0 Smear Path Review PT INR APTT D-Dimer VBG pH 7.27 L VBG pCO2 38 VBG pO2 47 VBG HCO3 18 L VBG O2 Saturation 70.0 VBG Base Excess -8.1 Sodium Potassium Chloride Carbon Dioxide Anion Gap BUN Creatinine Estim Creat Clear Calc Estimated GFR POC Glucose 111 Random Glucose Lactic Acid Calcium Phosphorus Magnesium Total Bilirubin AST ALT Alkaline Phosphatase Lactate Dehydrogenase Total Creatine Kinase C-Reactive Protein B-Natriuretic Peptide Total Protein Albumin Urine Color Urine Appearance Urine pH Ur Specific [place] Urine Protein Urine Glucose (UA) Urine Ketones Urine Blood Urine Nitrite Ur Leukocyte Esterase Urine RBC Urine WBC Ur Squamous Epith Cells Amorphous Sediment Urine Bacteria 01/17/21 01/17/21 01/17/21 13:22 13:26 17:50 WBC RBC Hgb Hct MCV MCH MCHC RDW Plt Count MPV Immature Gran % (Auto) Neut % (Auto) Lymph % (Auto) [place] % (Auto) Eos % (Auto) Baso % (Auto) Lymph # (Auto) [place] # (Auto) Eos # (Auto) Baso # (Auto) Abs Immat Gran (auto) Absolute Neuts (auto) Absolute Nucleated RBC Nucleated RBC % (auto) Smear Path Review PT INR APTT D-Dimer VBG pH VBG pCO2 VBG pO2 VBG HCO3 VBG O2 Saturation VBG Base Excess Sodium Potassium Chloride Carbon Dioxide Anion Gap BUN Creatinine Estim Creat Clear Calc Estimated GFR POC Glucose 103 Random Glucose Lactic Acid Calcium Phosphorus Magnesium Total Bilirubin AST ALT Alkaline Phosphatase Lactate Dehydrogenase 378 H Total Creatine Kinase 92 C-Reactive Protein B-Natriuretic Peptide Total Protein Albumin Urine Color YELLOW Urine Appearance CLEAR Urine pH 6.0 Ur Specific [place] 1.020 Urine Protein 3+ H Urine Glucose (UA) NEG Urine Ketones NEG Urine Blood TRACE Urine Nitrite NEG Ur Leukocyte Esterase NEG Urine RBC 1-4 Urine WBC 1-4 Ur Squamous Epith Cells 1+ Amorphous Sediment 1+ Urine Bacteria TRACE 01/17/21 01/17/21 01/18/21 20:24 23:33 04:08 WBC RBC Hgb Hct MCV MCH MCHC RDW Plt Count MPV Immature Gran % (Auto) Neut % (Auto) Lymph % (Auto) [place] % (Auto) Eos % (Auto) Baso % (Auto) Lymph # (Auto) [place] # (Auto) Eos # (Auto) Baso # (Auto) Abs Immat Gran (auto) Absolute Neuts (auto) Absolute Nucleated RBC Nucleated RBC % (auto) Smear Path Review PT INR APTT D-Dimer VBG pH VBG pCO2 VBG pO2 VBG HCO3 VBG O2 Saturation VBG Base Excess Sodium Potassium Chloride Carbon Dioxide Anion Gap BUN Creatinine Estim Creat Clear Calc Estimated GFR POC Glucose 76 119 H 107 Random Glucose Lactic Acid Calcium Phosphorus Magnesium Total Bilirubin AST ALT Alkaline Phosphatase Lactate Dehydrogenase Total Creatine Kinase C-Reactive Protein B-Natriuretic Peptide Total Protein Albumin Urine Color Urine Appearance Urine pH Ur Specific [place] Urine Protein Urine Glucose (UA) Urine Ketones Urine Blood Urine Nitrite Ur Leukocyte Esterase Urine RBC Urine WBC Ur Squamous Epith Cells Amorphous Sediment Urine Bacteria 01/18/21 01/18/21 01/18/21 05:18 05:20 05:20 WBC 9.3 RBC 2.75 L Hgb 7.5 L Hct 23.9 L MCV 86.9 MCH 27.3 MCHC 31.4 RDW 15.0 Plt Count 108 L MPV 11.9 Immature Gran % (Auto) 1.1 H Neut % (Auto) 87.8 H Lymph % (Auto) 5.0 L [place] % (Auto) 6.1 Eos % (Auto) 0.0 Baso % (Auto) 0.0 Lymph # (Auto) 0.5 L [place] # (Auto) 0.6 Eos # (Auto) 0.0 Baso # (Auto) 0.0 Abs Immat Gran (auto) 0.10 H Absolute Neuts (auto) 8.2 Absolute Nucleated RBC 0.000 Nucleated RBC % (auto) 0.0 Smear Path Review PT 11.9 INR 1.0 APTT 25.3 D-Dimer 2302 VBG pH 7.34 VBG pCO2 37 VBG pO2 48 VBG HCO3 20 L VBG O2 Saturation 71.0 VBG Base Excess -4.4 Sodium Potassium Chloride Carbon Dioxide Anion Gap BUN Creatinine Estim Creat Clear Calc Estimated GFR POC Glucose Random Glucose Lactic Acid Calcium Phosphorus Magnesium Total Bilirubin AST ALT Alkaline Phosphatase Lactate Dehydrogenase Total Creatine Kinase C-Reactive Protein B-Natriuretic Peptide Total Protein Albumin Urine Color Urine Appearance Urine pH Ur Specific [place] Urine Protein Urine Glucose (UA) Urine Ketones Urine Blood Urine Nitrite Ur Leukocyte Esterase Urine RBC Urine WBC Ur Squamous Epith Cells Amorphous Sediment Urine Bacteria 01/18/21 01/18/21 05:20 05:20 WBC RBC Hgb Hct MCV MCH MCHC RDW Plt Count MPV Immature Gran % (Auto) Neut % (Auto) Lymph % (Auto) [place] % (Auto) Eos % (Auto) Baso % (Auto) Lymph # (Auto) [place] # (Auto) Eos # (Auto) Baso # (Auto) Abs Immat Gran (auto) Absolute Neuts (auto) Absolute Nucleated RBC Nucleated RBC % (auto) Smear Path Review PT INR APTT D-Dimer VBG pH VBG pCO2 VBG pO2 VBG HCO3 VBG O2 Saturation VBG Base Excess Sodium 149 H Potassium 3.5 Chloride 120 H Carbon Dioxide 19 L Anion Gap 14 BUN 86 H* Creatinine 2.55 H Estim Creat Clear Calc 52.4 Estimated GFR 27 POC Glucose Random Glucose 112 Lactic Acid Calcium 8.6 Phosphorus 5.0 H Magnesium 2.7 H Total Bilirubin 0.7 AST 18 ALT 16 Alkaline Phosphatase 73 Lactate Dehydrogenase Total Creatine Kinase C-Reactive Protein 8.50 H B-Natriuretic Peptide 1305 H Total Protein 5.5 L Albumin 2.8 L Urine Color Urine Appearance Urine pH Ur Specific [place] Urine Protein Urine Glucose (UA) Urine Ketones Urine Blood Urine Nitrite Ur Leukocyte Esterase Urine RBC Urine WBC Ur Squamous Epith Cells Amorphous Sediment Urine Bacteria Microbiology Microbiology Results: Microbiology 01/15/21 05:54 Blood - Central Line Blood Culture - Preliminary No growth after 48 hours. 01/15/21 05:54 Blood - Central Line Blood Culture - Preliminary No growth after 48 hours. 01/09/21 21:01 Sputum - Suctioned Gram Stain - Final 01/09/21 21:01 Sputum - Suctioned Sputum Culture - Final 01/07/21 05:25 Blood - Venous Blood Culture - Final No growth after 5 days. 01/07/21 05:18 Blood - Venous Blood Culture - Final No growth after 5 days. Progress Note: A&P Assessment and plan (1) Acute respiratory distress syndrome (ARDS) due to COVID-19 virus: Status: Acute (2) Colitis: Status: Acute (3) Acute on chronic kidney failure: Status: Acute (4) Acute respiratory failure with hypoxia: Status: Acute (5) COVID-19: Status: Acute (6) Respiratory failure: Status: Acute (7) Hepatitis C, chronic: Status: Acute (8) Cirrhosis: Status: Acute (9) Asthma exacerbation: Status: Acute (10) Colonic mass: Status: Acute (11) Chronic kidney disease (CKD), stage III (moderate): Status: Acute (12) GI bleed: Status: Acute (13) COVID-19: Status: Acute (14) Opiate abuse, episodic: Status: Acute (15) Hypertension: Status: Acute (16) Diabetes: Status: Acute (17) Amputated below knee: Status: Acute Assessment and Plan: the plan is to continue as tolerated weaning the FiO2 and follow renal function and electrolytes now on replacement of his enteral feedings in oral free water Quality Stroke Does the patient have a stroke diagnosis?: No VTE Prior VTE?: No VTE Risk Level:: Medical - moderate - high VTE Device Contraindication: Treatment Not Indicated VTE Drug Contraindication: N/A - Med Ordered
--- NOTE | 2021-01-18 09:11 | MHC.CLN ---
F/U TF ON HOLD SINCE 01/16 R/T NIMBEX DRIP; NIMBEX NOW OFF PROPOFOL REMAINS OFF IF TF TO RESUME; RECOMMEND NEPRO AT MAX GOAL RATE 40CC/HR WITH 300CC FREE WATER FLUSHES Q 6 HOURS TO PROVIDE 1728KCALS (23KCALS/KG), 78G PROTEIN (1.0G/KG), 1898CC TOTAL WATER FROM FORMULA AND FLUSHES (26CC/KG BASED ON IBW) MONITOR TOLERANCE, RESIDUALS AND LYTES
[2021-01-18 09:12] LABS: Glucose, Whole Blood 138 mg/dL (60-115)
[2021-01-18] MEDS: dexmedeTOMIDidine HCL/NS 400 MCG/100 ML INFUS..BTL 6.5 MCG IVCONT (10:48)
[2021-01-18] MEDS: propofoL 1,000 MG/100 ML VIAL 7.79 MG IVCONT (12:23)
[2021-01-18] MEDS: propofoL 200 MG/20 ML VIAL 30 MG IVPUSH (12:24)
[2021-01-18 12:39] LABS: Glucose, Whole Blood 143 mg/dL (60-115)
[2021-01-18] MEDS: Midazolam HCl/NS 50 MG/50 ML PLAST..BAG 7 MG IVCONT (16:08)
[2021-01-18] MEDS: propofoL 1,000 MG/100 ML VIAL 15.59 MG IVCONT (16:09)
[2021-01-18 16:42] LABS: Glucose, Whole Blood 158 mg/dL (60-115)
[2021-01-18] MEDS: methylPREDNISolone Sod Succ 125 MG/2 ML VIAL 60 MG IVPUSH (20:00)
[2021-01-18] MEDS: propofoL 1,000 MG/100 ML VIAL 23.38 MG IVCONT (20:01)
[2021-01-18 20:31] LABS: Glucose, Whole Blood 152 mg/dL (60-115)
[2021-01-18] MEDS: Midazolam HCl/NS 50 MG/50 ML PLAST..BAG IVCONT (22:22)
[2021-01-18] MEDS: propofoL 1,000 MG/100 ML VIAL 38.97 MG IVCONT (22:22)
--- NOTE | 2021-01-18 22:33 | PC.NURSE ---
At 2200- RR 40s, asynchronous, SpO2 84%. Sedation titrated, see emar. Minimal inline/oral secretions. PA aware. Orders to restart nimbex gtt, started at 1 mcg/kg/min. Baseline train of four- 4/4 twitches with 60 milliamps applied. Tube feeds held at this time.
[2021-01-19] VITALS (35 sets, daily range): BP systolic 106–190; BP diastolic 57–87; PULSE 86–99; RESP 20; TEMP 36.4–37.6; O2SAT 92–97; BMI 36.0
--- NOTE | 2021-01-19 | ECG_ITS ---
Test Reason : CHEST PAIN Blood Pressure : / mmHG Vent. Rate : 090 BPM Atrial Rate : 090 BPM P-R Int : 152 ms QRS Dur : 082 ms QT Int : 340 ms P-R-T Axes : 034 008 202 degrees QTc Int : 415 ms Normal sinus rhythm Left ventricular hypertrophy with repolarization abnormality Abnormal ECG When compared with ECG of 07-JAN-2021 13:58, No significant change was found Referred By: Felicitas Grimm Electronically Signed By:PADMAJA MANCILLA
[2021-01-19 00:48] LABS: Glucose, Whole Blood 194 mg/dL (60-115)
[2021-01-19] MEDS: propofoL 1,000 MG/100 ML VIAL 23.38 MG IVCONT (01:03)
--- NOTE | 2021-01-19 02:32 | PC.NURSE ---
CARE ASSUMED 23:15...REMAINS TUBED/VENTED...VCV: AC20/IP22/FIO2 60%/PEEP 8....PROPOFOL 50 MCG/KG/MIN/VERSED 5 MG/HR/NIMBEX 1 MCG/KG/MIN...RR 28-34...SAO2 89-90%..TOF=4/4....ETCO2 25-26....NIMBEX TO 1.2 MCG/KG/MIN..RR CONTROLLED AT 20/MIN...ETCO2 UP TP 45-46...SAO2 92-94%...ICU PA PRESENT AND AWARE..PLAN IF ETCO2>50 TO INCREASE AC RATE...SEDATED/VENT SYNCHRONY PRESENT...PER PA PROPOFOL WEANED..CURRENTLY 15 MCG/KG/MIN..VERSED MAINTAIN 5 MG/HR...TUBE FEEDS REMAIN OF HOLD PER PA D/T PARALYTIC RX...LAUREN YELLOW URINE..RECTAL TUBE LIQUIED PETTY DRAINAGE...CXR REMAINS CLAMPED SINCE 01/18 6AM
[2021-01-19 04:20] LABS: Glucose, Whole Blood 250 mg/dL (60-115)
[2021-01-19] MEDS: Heparin Sodium,Porcine 5,000 UNIT/ML VIAL 5000 UNIT SUBCUT ×2 (04:27→12:04)
[2021-01-19 05:25] LABS: VBG Base Excess -6.2 mmol/L; VBG HCO3 20 mmol/L (22-26); VBG pCO2 46 mmHg; VBG pH 7.25 (7.32-7.43); VBG pO2 61 mmHg
[2021-01-19 05:31] LABS: Venous Blood Gas Refer to POC result
[2021-01-19 05:31] LABS: MANUAL DIFF FLAG NO
[2021-01-19 05:34] LABS: Basophils Percent Auto 0.1 % (0-2); Hematocrit 22.3 % (42-52); Imm Gran Abs Auto 0.08 X10*3/uL (0.00-0.03); Imm Gran Pct Auto 0.9 % (0.0-0.4); Lymphocytes Absolute Auto 0.5 X10*3/uL (1.2-4.9); Lymphocytes Percent Auto 5.3 % (20-40); Mean Corpuscular Hemoglobin 27.2 pg (27.0-33.0); Mean Corpuscular Volume 90.7 fL (80-98); Mean Platelet Volume 12.6 fL (9.4-12.4); Monocytes Absolute Auto 0.4 X10*3/uL (0.1-1.2); Monocytes Percent Auto 4.9 % (2-11); Neutrophils Absolute Auto 7.6 X10*3/uL (2.0-8.3); Neutrophils Percent Auto 88.8 % (45-73); Platelet Count 103 X10*3/uL (160-400); Red Blood Count 2.46 X10*6/uL (4.60-5.80); Red Cell Distribution Width 15.6 % (11.0-16.0); White Blood Count 8.6 X10*3/uL (4.8-10.8)
[2021-01-19 05:37] LABS: Hemoglobin 6.7 g/dl (14.0-18.0)
[2021-01-19 05:42] LABS: Prothrombin Time 11.5 SEC (9.9-13.0)
[2021-01-19 05:44] LABS: Partial Thromboplastin Time 26.4 SEC (24.1-38.0)
[2021-01-19 05:51] LABS: D Dimer 1965 NG/ML
[2021-01-19 06:01] LABS: B Type Natriuretic Peptide 1229 pg/mL (<100)
[2021-01-19 06:21] LABS: Alanine Aminotransferase 30 U/L (0-40); Albumin Level 2.5 g/dL (3.5-5.0); Alkaline Phosphatase 67 U/L (39-117); Anion Gap 14 (12-20); Aspartate Amino Transferase 28 U/L (5-37); Bilirubin Total 0.4 mg/dL (0.0-1.0); Blood Urea Nitrogen 82 mg/dL (9-16); C Reactive Protein 5.24 mg/dL (< or = 0.50); Calcium 8.3 mg/dL (8.4-10.2); Carbon Dioxide 21 mmol/L (22-29); Chloride 122 mmol/L (96-108); Creatinine Clr Calc Pharmacy 46.1; Estimated Glomerular Filt Rate 24; Glucose Random 285 mg/dL (60-115); Magnesium 2.7 mg/dL (1.6-2.6); Phosphorus 5.7 mg/dL (2.7-4.5); Sodium 153 mmol/L (135-145); Total Protein 5.1 g/dL (6.5-8.0)
[2021-01-19 07:12] LABS: Troponin-I High Sensitivity 485.5 ng/L (<3.5-35.0)
[2021-01-19] MEDS: Labetalol HCL 100 MG TABLET 300 MG OG-TUBE (07:26)
[2021-01-19] MEDS: Lactulose 20 GM/30 ML SOLUTION OG-TUBE (07:26)
[2021-01-19] MEDS: Chlorhexidine Gluc Oral Rinse 15 ML MOUTHWASH BUCCAL ×3 (07:26→19:54)
[2021-01-19] MEDS: Aspirin 81 MG TAB.CHEW OG-TUBE (07:26)
[2021-01-19] MEDS: methylPREDNISolone Sod Succ 125 MG/2 ML VIAL 60 MG IVPUSH ×2 (07:26→19:54)
[2021-01-19] MEDS: Sevelamer Carbonate Powder 800 MG POWD.PACK 1600 MG PO ×3 (07:27→15:34)
[2021-01-19] MEDS: Midazolam HCl/NS 50 MG/50 ML PLAST..BAG IVCONT ×2 (07:27→15:35)
[2021-01-19] MEDS: Sodium Bicarbonate 650 MG TABLET PO ×3 (07:27→15:34)
[2021-01-19] MEDS: Dextrose 5 % 1,000 ML 125 ML IVCONT ×3 (07:35→23:30)
[2021-01-19] MEDS: 0.9 % Sodium Chloride Flush 3 ML SYRINGE IVFLUSH ×2 (07:36)
[2021-01-19] MEDS: propofoL 1,000 MG/100 ML VIAL 11.69 MG IVCONT ×2 (08:02→15:34)
--- NOTE | 2021-01-19 08:22 | P.PNCC_ITS ---
Subjective Subjective Date of Service: 01/19/21 Interval History: 45-year-old severe insulin-dependent diabetic and hyperlipidemic and hypertensive who, despite Abhay and Abhay vaccination in October developed COVID-19 pneumonitis with ARDS and acute hypoxic respiratory failure complicated by spontaneous right-sided pneumothorax which is now resolved with chest tube in place but clamped so that is ready for discontinuation but there is a questionable new infiltrate in the left side I have pending sadler culture as well as procalcitonin and in addition he is anemic and thrombocytopenic with hemoglobin of 6.7 an EKG still showing left ventricular enlargement probably hypertrophy with diffuse nonspecific ST-T changes and that is unchanged but the 8 days ago troponin was 58 today it is it is 480 unchanged CVP of 5 blood pressure is running about 140 systolic normal sinus rhythm and rate in the high 80s oxygen saturation on FiO2 of 55% is 94% but he had to be repair ally eyes and he remains on propofol and midazolam drips for sedation so no further feedings and no oral medicines through his OG tube in with a sodium of 153 certainly implying not only volume depletion but free water deficit replacing with IV D5W at a rate of 125 per hour to resolve these issues Critical Care Time (minutes): 45 Physical Exam Vital Signs: Vital Signs: Last Vital Signs Temp 98.2 F 01/19/21 07:00 Pulse 88 01/19/21 07:26 Resp 20 01/19/21 07:00 BP 119/58 L 01/19/21 07:26 Pulse Ox 96 01/19/21 07:00 Oxygen Flow Rate 100 01/07/21 05:11 Body Mass Index 36.0 Const: Other: sedated and intubated CVP unchanged at 5 no change in EKG and he still has good bilateral carotid upstrokes chest with some coarse bilateral ventilatory sounds no adventitious s ounds abdomen is benign soft with no organomegaly skin is intact and there is no diarrhea Objective Data Labs CBC & Chem 7: 01/19/21 05:20 01/19/21 05:20 Labs: Laboratory Results - last 24 hr 01/18/21 01/18/21 01/18/21 08:35 12:34 16:12 WBC RBC Hgb Hct MCV MCH MCHC RDW Plt Count MPV Immature Gran % (Auto) Neut % (Auto) Lymph % (Auto) [place] % (Auto) Eos % (Auto) Baso % (Auto) Lymph # (Auto) [place] # (Auto) Eos # (Auto) Baso # (Auto) Abs Immat Gran (auto) Absolute Neuts (auto) Absolute Nucleated RBC Nucleated RBC % (auto) PT INR APTT D-Dimer VBG pH VBG pCO2 VBG pO2 VBG HCO3 VBG O2 Saturation VBG Base Excess Sodium Potassium Chloride Carbon Dioxide Anion Gap BUN Creatinine Estim Creat Clear Calc Estimated GFR POC Glucose 138 H 143 H 158 H Random Glucose Calcium Phosphorus Magnesium Total Bilirubin AST ALT Alkaline Phosphatase Troponin I High Sens C-Reactive Protein B-Natriuretic Peptide Total Protein Albumin Crossmatch 01/18/21 01/18/21 01/19/21 20:11 23:13 03:37 WBC RBC Hgb Hct MCV MCH MCHC RDW Plt Count MPV Immature Gran % (Auto) Neut % (Auto) Lymph % (Auto) [place] % (Auto) Eos % (Auto) Baso % (Auto) Lymph # (Auto) [place] # (Auto) Eos # (Auto) Baso # (Auto) Abs Immat Gran (auto) Absolute Neuts (auto) Absolute Nucleated RBC Nucleated RBC % (auto) PT INR APTT D-Dimer VBG pH VBG pCO2 VBG pO2 VBG HCO3 VBG O2 Saturation VBG Base Excess Sodium Potassium Chloride Carbon Dioxide Anion Gap BUN Creatinine Estim Creat Clear Calc Estimated GFR POC Glucose 152 H 194 H 250 H Random Glucose Calcium Phosphorus Magnesium Total Bilirubin AST ALT Alkaline Phosphatase Troponin I High Sens C-Reactive Protein B-Natriuretic Peptide Total Protein Albumin Crossmatch 01/19/21 01/19/21 01/19/21 05:18 05:20 05:20 WBC 8.6 RBC 2.46 L Hgb 6.7 L* Hct 22.3 L MCV 90.7 MCH 27.2 MCHC 30.0 L RDW 15.6 Plt Count 103 L MPV 12.6 H Immature Gran % (Auto) 0.9 H Neut % (Auto) 88.8 H Lymph % (Auto) 5.3 L [place] % (Auto) 4.9 Eos % (Auto) 0.0 Baso % (Auto) 0.1 Lymph # (Auto) 0.5 L [place] # (Auto) 0.4 Eos # (Auto) 0.0 Baso # (Auto) 0.0 Abs Immat Gran (auto) 0.08 H Absolute Neuts (auto) 7.6 Absolute Nucleated RBC 0.000 Nucleated RBC % (auto) 0.0 PT 11.5 INR 1.0 APTT 26.4 D-Dimer 1965 VBG pH 7.25 L VBG pCO2 46 VBG pO2 61 VBG HCO3 20 L VBG O2 Saturation 82.0 VBG Base Excess -6.2 Sodium Potassium Chloride Carbon Dioxide Anion Gap BUN Creatinine Estim Creat Clear Calc Estimated GFR POC Glucose Random Glucose Calcium Phosphorus Magnesium Total Bilirubin AST ALT Alkaline Phosphatase Troponin I High Sens C-Reactive Protein B-Natriuretic Peptide Total Protein Albumin Crossmatch 01/19/21 01/19/21 01/19/21 05:20 05:20 07:48 WBC RBC Hgb Hct MCV MCH MCHC RDW Plt Count MPV Immature Gran % (Auto) Neut % (Auto) Lymph % (Auto) [place] % (Auto) Eos % (Auto) Baso % (Auto) Lymph # (Auto) [place] # (Auto) Eos # (Auto) Baso # (Auto) Abs Immat Gran (auto) Absolute Neuts (auto) Absolute Nucleated RBC Nucleated RBC % (auto) PT INR APTT D-Dimer VBG pH VBG pCO2 VBG pO2 VBG HCO3 VBG O2 Saturation VBG Base Excess Sodium 153 H Potassium 4.0 Chloride 122 H Carbon Dioxide 21 L Anion Gap 14 BUN 82 H* Creatinine 2.87 H Estim Creat Clear Calc 46.1 Estimated GFR 24 POC Glucose Random Glucose 285 H D Calcium 8.3 L Phosphorus 5.7 H Magnesium 2.7 H Total Bilirubin 0.4 AST 28 D ALT 30 Alkaline Phosphatase 67 Troponin I High Sens 485.5 H* D C-Reactive Protein 5.24 H B-Natriuretic Peptide 1229 H Total Protein 5.1 L Albumin 2.5 L Crossmatch See Detail Microbiology Microbiology Results: Microbiology 01/15/21 05:54 Blood - Central Line Blood Culture - Preliminary No growth after 48 hours. 01/15/21 05:54 Blood - Central Line Blood Culture - Preliminary No growth after 48 hours. 01/09/21 21:01 Sputum - Suctioned Gram Stain - Final 01/09/21 21:01 Sputum - Suctioned Sputum Culture - Final 01/07/21 05:25 Blood - Venous Blood Culture - Final No growth after 5 days. 01/07/21 05:18 Blood - Venous Blood Culture - Final No growth after 5 days. Progress Note: A&P Assessment and plan (1) Acute respiratory distress syndrome (ARDS) due to COVID-19 virus: Status: Acute (2) Colitis: Status: Acute (3) Acute on chronic kidney failure: Status: Acute (4) Acute respiratory failure with hypoxia: Status: Acute (5) COVID-19: Status: Acute (6) Respiratory failure: Status: Acute (7) Hepatitis C, chronic: Status: Acute (8) Cirrhosis: Status: Acute (9) Asthma exacerbation: Status: Acute (10) Colonic mass: Status: Acute (11) Chronic kidney disease (CKD), stage III (moderate): Status: Acute (12) GI bleed: Status: Acute (13) COVID-19: Status: Acute (14) Opiate abuse, episodic: Status: Acute (15) Hypertension: Status: Acute (16) Diabetes: Status: Acute (17) Amputated below knee: Status: Acute Assessment and Plan: I am going to do a bedside echo did it to be assured that there is no segmental wall motion abnormality given his ischemic risk based on his bilateral BK amputations due to diabetic vasculopathy as well as the no his nephropathy and retinopathy etc. Quality Stroke Does the patient have a stroke diagnosis?: No VTE Prior VTE?: No VTE Risk Level:: Medical - moderate - high VTE Device Contraindication: Treatment Not Indicated VTE Drug Contraindication: N/A - Med Ordered
--- NOTE | 2021-01-19 08:53 | MHC.CLN ---
F/U TF ON HOLD SINCE 01/16 R/T NIMBEX DRIP; NIMBEX NOW OFF PROPOFOL RE-STARTED RECOMMEND NEPRO AT MAX GOAL RATE 40CC/HR WITH 300CC FREE WATER FLUSHES Q 6 HOURS TO PROVIDE 1728KCALS (2013KCALS WITH SEDATION; 27KCALS/KG BASED ON IBW), 78G PROTEIN (1.0G/KG), 1898CC TOTAL WATER FROM FORMULA AND FLUSHES (26CC/KG BASED ON IBW) MONITOR TOLERANCE, RESIDUALS AND LYTES
[2021-01-19 09:22] LABS: Procalcitonin 0.54 ng/mL
[2021-01-19 09:24] LABS: Glucose Urine UA 100 MG/DL (NEG); Leukocyte Esterase Urine NEG (NEG); Nitrite Urine NEG (NEG); PH 5.5 (5.0-8.0); Specific Gravity - Urine 1.025 (1.005-1.025); Urine Blood TRACE (NEG); Urine Ketones NEG (NEG); Urine Protein 3+ MG/DL (NEG-TRACE)
[2021-01-19 09:25] LABS: Appearance Urine CLOUDY; Color Urine YELLOW
[2021-01-19 09:36] LABS: Amorphous Sediment Urine 2+ /LPF; Bacteria Urine 1+ /LPF; Hyaline Casts Urine 0-2 /LPF; Renal Epithelial Cells Urine TRACE /LPF; Squamous Epithelial Cell Urine 1+ /LPF; WBC Urine 0-2 /HPF (0-4)
[2021-01-19 09:37] LABS: OBS Int Ctl Valid YES; OBS1 NEGATIVE (NEGATIVE)
--- NOTE | 2021-01-19 10:49 | MHC.CM.PN ---
Pt continues on vent support secondary to ARDS/COVID: Pt will have his chest tube removed and will receive 1 unit of PRBCs. Family called and given updates - no plans for weaning or peg and trach placement at this time. CM will follow for finalization of d/c plans
[2021-01-19 12:28] LABS: Glucose, Whole Blood 300 mg/dL (60-115)
[2021-01-19] MEDS: Insulin Regular, Human 100 UNIT/ML 3 ML VIAL IVPUSH (12:46)
[2021-01-19] MEDS: Insulin Regular/NS 100 UNIT/100 ML PLAST..BAG IVCONT (13:24)
[2021-01-19] MEDS: fentaNYL 100 MCG PATCH.TD72 TRANSDERMA (15:33)
[2021-01-19 16:35] LABS: Glucose, Whole Blood 261 mg/dL (60-115)
[2021-01-19 16:35] LABS: Glucose, Whole Blood 243 mg/dL (60-115)
[2021-01-19 16:35] LABS: Glucose, Whole Blood 289 mg/dL (60-115)
[2021-01-19 17:37] LABS: Glucose, Whole Blood 223 mg/dL (60-115)
--- NOTE | 2021-01-19 18:23 | PC.NURSE ---
Patient remains intubated, sedated and paralyzed. Versed at 5mg/hr, Nimbex at 1mcg/kg/min and Propofol at 15mcg/kg/min. TOF reactive 4/4 at 6mA Pupils 2, sluggish. Vent now AC settings 20, 500, 55, 8. PXCR obtained to view status of Pthx. Chest tube remains clamped. Lungs dim with inspiratory rhonchi. SpO2 94-96% SpuCx sent this AM. Tube feeds remain off. D5W started this AM, running at 125mL/hr. POCs elevated, insulin drip restarted per protocol at 13:30. Rectal tube initially with 400mL liquid stool in bag. Stool spec sent this AM, (-) for occult blood. No further BMs this shift via rectal tube. Tube removed at 1800. [place] draining clear yellow urine. UA sent, Negative for infection. Unit of PCs transfused today for H+H 6.7/22.3 EKG obtained for troponin 485.5, Dr. Grimm obtained his own echo at the bedside. Right IJ triple lumen C/D/I. Fentanyl patch changed today, now to Left upper chest. Scheduled meds as ordered. Family updated via SW. Patient repositioned q2hrs with oral care per Vent bundle protocol. Skin intact, bathed this afternoon. Extremities elevated with pillows for pressure relief. Bilateral wrist restraints intact, (+) CMS to hands/arms.
--- NOTE | 2021-01-19 18:36 | PM.PNNEP ---
Subjective Subjective Date of Service: 01/19/21 Interval history: Seen and examined.Evnts noted Sna 153 this am Physical Exam Vital Signs: Vital Signs: Last Vital Signs Temp 98.2 F 01/19/21 18:00 Pulse 87 01/19/21 18:00 Resp 20 01/19/21 18:00 BP 146/74 H 01/19/21 18:00 Pulse Ox 94 01/19/21 18:00 Oxygen Flow Rate 100 01/07/21 05:11 Body Mass Index 36.0 Const: General: no acute distress, alert, awake and anxious Nutritional Appearance: obese Eyes: Sclerae: sclerae normal EOM: EOMs intact bilaterally Neck: Neck: Yes no lymphadenopathy, Yes trachea midline and Yes supple Resp: Effort & Inspection: normal respiratory effort and no respiratory distress ( On high-flow nasal cannula and non-rebreather) Auscultation: crackles ( diffuse bilateral) and rhonchi Cardio: Rate: regular rate and tachycardic Rhythm: regular rhythm Heart sounds: no gallops, no murmurs and no rubs GI: Inspection: Yes normal to inspection Palpation (GI): Soft to palpation and Other GI palpation findings present ( Nontender) Auscultation: normal bowel sounds Extrem: General: No clubbing, No cyanosis and Yes other ( bilateral BKA) Objective Data Labs CBC & Chem 7: 01/19/21 05:20 01/19/21 05:20 Labs: Laboratory Results - last 24 hr 01/18/21 01/18/21 01/19/21 20:11 23:13 03:37 WBC RBC Hgb Hct MCV MCH MCHC RDW Plt Count MPV Immature Gran % (Auto) Neut % (Auto) Lymph % (Auto) [place] % (Auto) Eos % (Auto) Baso % (Auto) Lymph # (Auto) [place] # (Auto) Eos # (Auto) Baso # (Auto) Abs Immat Gran (auto) Absolute Neuts (auto) Absolute Nucleated RBC Nucleated RBC % (auto) PT INR APTT D-Dimer VBG pH VBG pCO2 VBG pO2 VBG HCO3 VBG O2 Saturation VBG Base Excess Sodium Potassium Chloride Carbon Dioxide Anion Gap BUN Creatinine Estim Creat Clear Calc Estimated GFR POC Glucose 152 H 194 H 250 H Random Glucose Calcium Phosphorus Magnesium Total Bilirubin AST ALT Alkaline Phosphatase Troponin I High Sens C-Reactive Protein B-Natriuretic Peptide Total Protein Albumin Procalcitonin Urine Color Urine Appearance Urine pH Ur Specific [place] Urine Protein Urine Glucose (UA) Urine Ketones Urine Blood Urine Nitrite Ur Leukocyte Esterase Urine RBC Urine WBC Ur Squamous Epith Cells Ur Renal Epithelial Cell Amorphous Sediment Urine Bacteria Hyaline Casts Granular Casts Stool Occult Blood Blood Type Antibody Screen Crossmatch 01/19/21 01/19/21 01/19/21 05:18 05:20 05:20 WBC 8.6 RBC 2.46 L Hgb 6.7 L* Hct 22.3 L MCV 90.7 MCH 27.2 MCHC 30.0 L RDW 15.6 Plt Count 103 L MPV 12.6 H Immature Gran % (Auto) 0.9 H Neut % (Auto) 88.8 H Lymph % (Auto) 5.3 L [place] % (Auto) 4.9 Eos % (Auto) 0.0 Baso % (Auto) 0.1 Lymph # (Auto) 0.5 L [place] # (Auto) 0.4 Eos # (Auto) 0.0 Baso # (Auto) 0.0 Abs Immat Gran (auto) 0.08 H Absolute Neuts (auto) 7.6 Absolute Nucleated RBC 0.000 Nucleated RBC % (auto) 0.0 PT 11.5 INR 1.0 APTT 26.4 D-Dimer 1965 VBG pH 7.25 L VBG pCO2 46 VBG pO2 61 VBG HCO3 20 L VBG O2 Saturation 82.0 VBG Base Excess -6.2 Sodium Potassium Chloride Carbon Dioxide Anion Gap BUN Creatinine Estim Creat Clear Calc Estimated GFR POC Glucose Random Glucose Calcium Phosphorus Magnesium Total Bilirubin AST ALT Alkaline Phosphatase Troponin I High Sens C-Reactive Protein B-Natriuretic Peptide Total Protein Albumin Procalcitonin Urine Color Urine Appearance Urine pH Ur Specific [place] Urine Protein Urine Glucose (UA) Urine Ketones Urine Blood Urine Nitrite Ur Leukocyte Esterase Urine RBC Urine WBC Ur Squamous Epith Cells Ur Renal Epithelial Cell Amorphous Sediment Urine Bacteria Hyaline Casts Granular Casts Stool Occult Blood Blood Type Antibody Screen Crossmatch 01/19/21 01/19/21 01/19/21 05:20 05:20 07:48 WBC RBC Hgb Hct MCV MCH MCHC RDW Plt Count MPV Immature Gran % (Auto) Neut % (Auto) Lymph % (Auto) [place] % (Auto) Eos % (Auto) Baso % (Auto) Lymph # (Auto) [place] # (Auto) Eos # (Auto) Baso # (Auto) Abs Immat Gran (auto) Absolute Neuts (auto) Absolute Nucleated RBC Nucleated RBC % (auto) PT INR APTT D-Dimer VBG pH VBG pCO2 VBG pO2 VBG HCO3 VBG O2 Saturation VBG Base Excess Sodium 153 H Potassium 4.0 Chloride 122 H Carbon Dioxide 21 L Anion Gap 14 BUN 82 H* Creatinine 2.87 H Estim Creat Clear Calc 46.1 Estimated GFR 24 POC Glucose Random Glucose 285 H D Calcium 8.3 L Phosphorus 5.7 H Magnesium 2.7 H Total Bilirubin 0.4 AST 28 D ALT 30 Alkaline Phosphatase 67 Troponin I High Sens 485.5 H* D C-Reactive Protein 5.24 H B-Natriuretic Peptide 1229 H Total Protein 5.1 L Albumin 2.5 L Procalcitonin Urine Color Urine Appearance Urine pH Ur Specific [place] Urine Protein Urine Glucose (UA) Urine Ketones Urine Blood Urine Nitrite Ur Leukocyte Esterase Urine RBC Urine WBC Ur Squamous Epith Cells Ur Renal Epithelial Cell Amorphous Sediment Urine Bacteria Hyaline Casts Granular Casts Stool Occult Blood Blood Type A Positive Antibody Screen NEGATIVE Crossmatch See Detail 01/19/21 01/19/21 01/19/21 07:48 09:01 09:01 WBC RBC Hgb Hct MCV MCH MCHC RDW Plt Count MPV Immature Gran % (Auto) Neut % (Auto) Lymph % (Auto) [place] % (Auto) Eos % (Auto) Baso % (Auto) Lymph # (Auto) [place] # (Auto) Eos # (Auto) Baso # (Auto) Abs Immat Gran (auto) Absolute Neuts (auto) Absolute Nucleated RBC Nucleated RBC % (auto) PT INR APTT D-Dimer VBG pH VBG pCO2 VBG pO2 VBG HCO3 VBG O2 Saturation VBG Base Excess Sodium Potassium Chloride Carbon Dioxide Anion Gap BUN Creatinine Estim Creat Clear Calc Estimated GFR POC Glucose Random Glucose Calcium Phosphorus Magnesium Total Bilirubin AST ALT Alkaline Phosphatase Troponin I High Sens C-Reactive Protein B-Natriuretic Peptide Total Protein Albumin Procalcitonin 0.54 Urine Color YELLOW Urine Appearance CLOUDY Urine pH 5.5 Ur Specific [place] 1.025 Urine Protein 3+ H Urine Glucose (UA) 100 H Urine Ketones NEG Urine Blood TRACE Urine Nitrite NEG Ur Leukocyte Esterase NEG Urine RBC 5-9 H Urine WBC 0-2 Ur Squamous Epith Cells 1+ Ur Renal Epithelial Cell TRACE Amorphous Sediment 2+ Urine Bacteria 1+ Hyaline Casts 0-2 Granular Casts 1-4 Stool Occult Blood NEGATIVE Blood Type Antibody Screen Crossmatch 01/19/21 01/19/21 01/19/21 12:18 14:29 15:43 WBC RBC Hgb Hct MCV MCH MCHC RDW Plt Count MPV Immature Gran % (Auto) Neut % (Auto) Lymph % (Auto) [place] % (Auto) Eos % (Auto) Baso % (Auto) Lymph # (Auto) [place] # (Auto) Eos # (Auto) Baso # (Auto) Abs Immat Gran (auto) Absolute Neuts (auto) Absolute Nucleated RBC Nucleated RBC % (auto) PT INR APTT D-Dimer VBG pH VBG pCO2 VBG pO2 VBG HCO3 VBG O2 Saturation VBG Base Excess Sodium Potassium Chloride Carbon Dioxide Anion Gap BUN Creatinine Estim Creat Clear Calc Estimated GFR POC Glucose 300 H 289 H 261 H Random Glucose Calcium Phosphorus Magnesium Total Bilirubin AST ALT Alkaline Phosphatase Troponin I High Sens C-Reactive Protein B-Natriuretic Peptide Total Protein Albumin Procalcitonin Urine Color Urine Appearance Urine pH Ur Specific [place] Urine Protein Urine Glucose (UA) Urine Ketones Urine Blood Urine Nitrite Ur Leukocyte Esterase Urine RBC Urine WBC Ur Squamous Epith Cells Ur Renal Epithelial Cell Amorphous Sediment Urine Bacteria Hyaline Casts Granular Casts Stool Occult Blood Blood Type Antibody Screen Crossmatch 01/19/21 01/19/21 16:29 17:32 WBC RBC Hgb Hct MCV MCH MCHC RDW Plt Count MPV Immature Gran % (Auto) Neut % (Auto) Lymph % (Auto) [place] % (Auto) Eos % (Auto) Baso % (Auto) Lymph # (Auto) [place] # (Auto) Eos # (Auto) Baso # (Auto) Abs Immat Gran (auto) Absolute Neuts (auto) Absolute Nucleated RBC Nucleated RBC % (auto) PT INR APTT D-Dimer VBG pH VBG pCO2 VBG pO2 VBG HCO3 VBG O2 Saturation VBG Base Excess Sodium Potassium Chloride Carbon Dioxide Anion Gap BUN Creatinine Estim Creat Clear Calc Estimated GFR POC Glucose 243 H 223 H Random Glucose Calcium Phosphorus Magnesium Total Bilirubin AST ALT Alkaline Phosphatase Troponin I High Sens C-Reactive Protein B-Natriuretic Peptide Total Protein Albumin Procalcitonin Urine Color Urine Appearance Urine pH Ur Specific [place] Urine Protein Urine Glucose (UA) Urine Ketones Urine Blood Urine Nitrite Ur Leukocyte Esterase Urine RBC Urine WBC Ur Squamous Epith Cells Ur Renal Epithelial Cell Amorphous Sediment Urine Bacteria Hyaline Casts Granular Casts Stool Occult Blood Blood Type Antibody Screen Crossmatch Microbiology Microbiology Results: Microbiology 01/19/21 08:06 Sputum - Suctioned Gram Stain - Final 01/15/21 05:54 Blood - Central Line Blood Culture - Preliminary No growth after 48 hours. 01/15/21 05:54 Blood - Central Line Blood Culture - Preliminary No growth after 48 hours. 01/09/21 21:01 Sputum - Suctioned Gram Stain - Final 01/09/21 21:01 Sputum - Suctioned Sputum Culture - Final 01/07/21 05:25 Blood - Venous Blood Culture - Final No growth after 5 days. 01/07/21 05:18 Blood - Venous Blood Culture - Final No growth after 5 days. Assessment & Plan Assessment and plan (1) Acute respiratory distress syndrome (ARDS) due to COVID-19 virus: Status: Acute (2) Acute on chronic kidney failure: Status: Acute Assessment and Plan: Mr. Preciado is a 45-year-old gnetlmean with uncontrolled DM2, uncontrolled HTN, right BKA, left BKA, osteomyelitis right shoulder, and CKD stage IIIB/IV with BL Cr 2.7-2.8mg/dL who now has COVID ARDS. Renal function stable. Intubated, sedated, with chest tube. 1. KIRILL: Scr close to bsl 2.5 Scr 2. ADv CKD 4: DN/hep C 3. Incr Bun/Cr: multifact including stds 4. Vol: looks ok for now w cont UOP 5. NAGMA 6. NRP: DN and/or COVID contributing; ques apoL-1 status ( knowing i will not interchange agent but may help expalin NRP) 7. 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
[2021-01-19 18:40] LABS: Glucose, Whole Blood 221 mg/dL (60-115)
[2021-01-19 20:22] LABS: Glucose, Whole Blood 173 mg/dL (60-115)
[2021-01-19 22:36] LABS: Hematocrit 25.7 % (42-52); Hemoglobin 7.9 g/dl (14.0-18.0); Mean Corpuscular HGB Conc 30.7 g/dl (31.0-36.0); Mean Corpuscular Hemoglobin 27.4 pg (27.0-33.0); Mean Corpuscular Volume 89.2 fL (80-98); Mean Platelet Volume 13.2 fL (9.4-12.4); Platelet Count 106 X10*3/uL (160-400); Red Blood Count 2.88 X10*6/uL (4.60-5.80); Red Cell Distribution Width 15.1 % (11.0-16.0); White Blood Count 9.1 X10*3/uL (4.8-10.8)
[2021-01-19 22:38] LABS: Glucose, Whole Blood 153 mg/dL (60-115)
[2021-01-19 23:09] LABS: Anion Gap 15 (12-20); Blood Urea Nitrogen 78 mg/dL (9-16); Calcium 8.3 mg/dL (8.4-10.2); Carbon Dioxide 19 mmol/L (22-29); Chloride 121 mmol/L (96-108); Estimated Glomerular Filt Rate 26; Glucose Random 177 mg/dL (60-115); Potassium 3.4 mmol/L (3.3-5.1); Sodium 152 mmol/L (135-145)
[2021-01-20] VITALS (31 sets, daily range): BP systolic 129–183; BP diastolic 69–86; PULSE 18–98; RESP 18–46; TEMP 37.2–38; O2SAT 87–96
[2021-01-20] MEDS: propofoL 1,000 MG/100 ML VIAL 11.69 MG IVCONT ×2 (00:05→06:05)
[2021-01-20 00:28] LABS: Glucose, Whole Blood 170 mg/dL (60-115)
[2021-01-20] MEDS: Midazolam HCl/NS 50 MG/50 ML PLAST..BAG IVCONT ×3 (01:59→18:12)
[2021-01-20 02:12] LABS: Glucose, Whole Blood 176 mg/dL (60-115)
[2021-01-20 04:18] LABS: Glucose, Whole Blood 162 mg/dL (60-115)
[2021-01-20 05:36] LABS: VBG Base Excess -3.2 mmol/L; VBG HCO3 21 mmol/L (22-26); VBG pCO2 37 mmHg; VBG pH 7.36 (7.32-7.43); VBG pO2 51 mmHg
[2021-01-20 05:37] LABS: MANUAL DIFF FLAG NO
[2021-01-20 05:44] LABS: Hematocrit 25.9 % (42-52); Hemoglobin 8.1 g/dl (14.0-18.0); Imm Gran Abs Auto 0.05 X10*3/uL (0.00-0.03); Imm Gran Pct Auto 0.6 % (0.0-0.4); Lymphocytes Absolute Auto 0.7 X10*3/uL (1.2-4.9); Lymphocytes Percent Auto 8.2 % (20-40); Mean Corpuscular HGB Conc 31.3 g/dl (31.0-36.0); Mean Corpuscular Hemoglobin 27.7 pg (27.0-33.0); Mean Corpuscular Volume 88.7 fL (80-98); Mean Platelet Volume 12.8 fL (9.4-12.4); Monocytes Absolute Auto 0.6 X10*3/uL (0.1-1.2); Monocytes Percent Auto 6.5 % (2-11); Neutrophils Absolute Auto 7.1 X10*3/uL (2.0-8.3); Neutrophils Percent Auto 84.7 % (45-73); Platelet Count 103 X10*3/uL (160-400); Red Blood Count 2.92 X10*6/uL (4.60-5.80); Red Cell Distribution Width 15.2 % (11.0-16.0); White Blood Count 8.4 X10*3/uL (4.8-10.8)
[2021-01-20 05:54] LABS: Prothrombin Time 11.5 SEC (9.9-13.0)
[2021-01-20 05:57] LABS: D Dimer 837 NG/ML; Partial Thromboplastin Time 24.8 SEC (24.1-38.0)
[2021-01-20] MEDS: Dextrose 5 % 1,000 ML 125 ML IVCONT (06:04)
[2021-01-20 06:21] LABS: B Type Natriuretic Peptide 684 pg/mL (<100)
[2021-01-20 06:25] LABS: Glucose, Whole Blood 150 mg/dL (60-115)
[2021-01-20 06:27] LABS: Alanine Aminotransferase 25 U/L (0-40); Albumin Level 2.5 g/dL (3.5-5.0); Alkaline Phosphatase 73 U/L (39-117); Anion Gap 12 (12-20); Aspartate Amino Transferase 14 U/L (5-37); Bilirubin Total 0.4 mg/dL (0.0-1.0); Blood Urea Nitrogen 70 mg/dL (9-16); C Reactive Protein 4.16 mg/dL (< or = 0.50); Calcium 8.2 mg/dL (8.4-10.2); Carbon Dioxide 21 mmol/L (22-29); Chloride 121 mmol/L (96-108); Creatinine Clr Calc Pharmacy 52.7; Estimated Glomerular Filt Rate 28; Glucose Random 173 mg/dL (60-115); Magnesium 2.5 mg/dL (1.6-2.6); Phosphorus 3.8 mg/dL (2.7-4.5); Potassium 3.4 mmol/L (3.3-5.1); Sodium 151 mmol/L (135-145); Total Protein 5.3 g/dL (6.5-8.0)
[2021-01-20 07:02] LABS: Venous Blood Gas Refer to POC result
[2021-01-20] MEDS: KCl 20 mEq in 5 % Dextrose 20 MEQ/1,000 ML IV.SOLN 125 MEQ IVCONT ×3 (07:24→23:42)
[2021-01-20] MEDS: methylPREDNISolone Sod Succ 125 MG/2 ML VIAL 60 MG IVPUSH ×2 (07:41→20:59)
[2021-01-20] MEDS: Sodium Bicarbonate 650 MG TABLET PO ×4 (07:42→21:00)
[2021-01-20] MEDS: Labetalol HCL 100 MG TABLET 300 MG OG-TUBE (07:43)
[2021-01-20] MEDS: Aspirin 81 MG TAB.CHEW OG-TUBE (07:43)
[2021-01-20] MEDS: Sevelamer Carbonate Powder 800 MG POWD.PACK 1600 MG PO ×3 (07:45→16:15)
[2021-01-20] MEDS: Chlorhexidine Gluc Oral Rinse 15 ML MOUTHWASH BUCCAL ×3 (07:46→20:59)
[2021-01-20] MEDS: Lactulose 20 GM/30 ML SOLUTION OG-TUBE ×2 (07:46→21:00)
[2021-01-20 08:25] LABS: Glucose, Whole Blood 125 mg/dL (60-115)
[2021-01-20 10:11] LABS: Glucose, Whole Blood 132 mg/dL (60-115)
--- NOTE | 2021-01-20 10:37 | MHC.CM.PN ---
Pt remains in ICU but doing marginally better today: Renal fx improved, chest tube d/c'd and FiO2 requirements lower than yesterday. Clinical updates given to family: no plans for extubation today but hopefully pt can make progress towards that goal this weekend. Once pt can participate in therapy, his abilities can be assessed and referrals made. CM to follow for finalization of d/c plans
[2021-01-20] MEDS: propofoL 1,000 MG/100 ML VIAL 23.38 MG IVCONT (10:58)
--- NOTE | 2021-01-20 11:41 | MHC.CLN ---
F/U TF ON HOLD SINCE 01/16 R/T NIMBEX DRIP; NIMBEX NOW OFF PROPOFOL RE-STARTED PROVIDES 617KCALS PT DAY 5 WITHOUT ADEQUATE NUTRITION RECOMMEND RE-STARTING NEPRO AT MAX GOAL RATE 20CC/HR WITH PROSOURCE TID AND 300CC FREE WATER FLUSHES Q 6 HOURS TO PROVIDE 1044KCALS (1661KCALS WITH SEDATION; 22KCALS/KG BASED ON IBW), 84G PROTEIN (1.1G/KG), 1549CC TOTAL WATER FROM FORMULA AND FLUSHES (21CC/KG BASED ON IBW) CAN RUN TROPHIC FEEDINGS WITH NIMBEX DRIP MONITOR TOLERANCE, RESIDUALS AND LYTES
[2021-01-20] MEDS: Heparin Sodium,Porcine 5,000 UNIT/ML VIAL 5000 UNIT SUBCUT ×2 (11:58→20:58)
[2021-01-20] MEDS: Insulin Regular/NS 100 UNIT/100 ML PLAST..BAG IVCONT (11:59)
[2021-01-20 12:47] LABS: Glucose, Whole Blood 149 mg/dL (60-115)
[2021-01-20] MEDS: propofoL 1,000 MG/100 ML VIAL 31.18 MG IVCONT (13:54)
--- NOTE | 2021-01-20 14:03 | P.PNCC_ITS ---
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 with bilateral [id number] amputations and background stage III renal failure with an acute on chronic component due to diabetic nephropathy and he has an underlying hypertensive as well and despite COVID-19 vaccination in October presents with acute COVID 19 pneumonitis bilateral AL RDS acute hypoxemic respiratory failure requiring intubation and today chest tube was discontinued because of resolved spontaneous pneumothorax and he is down to an FiO2 of 40% with diminishing D-dimer indicating an and CRP indicating resolving disease even improving metabolically with diminishing negative base excess and also improving hypernatremia on free water replacement with sodium down from 153 to 151 Critical Care Time (minutes): 45 Physical Exam Vital Signs: Vital Signs: Last Vital Signs Temp 100 F 01/20/21 13:00 Pulse 93 01/20/21 13:00 Resp 19 01/20/21 13:00 BP 161/75 H 01/20/21 13:00 Pulse Ox 92 01/20/21 13:00 Oxygen Flow Rate 100 01/07/21 05:11 Body Mass Index 36.0 Const: Other: sedated and intubated but he does awaken he is off paralytics and synchronous with the ventilator with diminished bilateral breath sounds and no diaphragmatic effort abdomen soft benign tolerating feedings but no again no megaly cardiac exam with CVP of 6 no gallops no murmurs bedside echo mild concentric hypertrophy but preserved global function no primary valve or pericardial disease Objective Data Labs CBC & Chem 7: 01/20/21 05:30 01/20/21 05:30 Labs: Laboratory Results - last 24 hr 01/19/21 01/19/21 01/19/21 14:29 15:43 16:29 WBC RBC Hgb Hct MCV MCH MCHC RDW Plt Count MPV Immature Gran % (Auto) Neut % (Auto) Lymph % (Auto) [place] % (Auto) Eos % (Auto) Baso % (Auto) Lymph # (Auto) [place] # (Auto) Eos # (Auto) Baso # (Auto) Abs Immat Gran (auto) Absolute Neuts (auto) Absolute Nucleated RBC Nucleated RBC % (auto) PT INR APTT D-Dimer VBG pH VBG pCO2 VBG pO2 VBG HCO3 VBG O2 Saturation VBG Base Excess Sodium Potassium Chloride Carbon Dioxide Anion Gap BUN Creatinine Estim Creat Clear Calc Estimated GFR POC Glucose 289 H 261 H 243 H Random Glucose Calcium Phosphorus Magnesium Total Bilirubin AST ALT Alkaline Phosphatase C-Reactive Protein B-Natriuretic Peptide Total Protein Albumin 01/19/21 01/19/21 01/19/21 17:32 18:33 20:03 WBC RBC Hgb Hct MCV MCH MCHC RDW Plt Count MPV Immature Gran % (Auto) Neut % (Auto) Lymph % (Auto) [place] % (Auto) Eos % (Auto) Baso % (Auto) Lymph # (Auto) [place] # (Auto) Eos # (Auto) Baso # (Auto) Abs Immat Gran (auto) Absolute Neuts (auto) Absolute Nucleated RBC Nucleated RBC % (auto) PT INR APTT D-Dimer VBG pH VBG pCO2 VBG pO2 VBG HCO3 VBG O2 Saturation VBG Base Excess Sodium Potassium Chloride Carbon Dioxide Anion Gap BUN Creatinine Estim Creat Clear Calc Estimated GFR POC Glucose 223 H 221 H 173 H Random Glucose Calcium Phosphorus Magnesium Total Bilirubin AST ALT Alkaline Phosphatase C-Reactive Protein B-Natriuretic Peptide Total Protein Albumin 01/19/21 01/19/21 01/19/21 22:07 22:07 22:14 WBC 9.1 RBC 2.88 L Hgb 7.9 L Hct 25.7 L MCV 89.2 MCH 27.4 MCHC 30.7 L RDW 15.1 Plt Count 106 L MPV 13.2 H Immature Gran % (Auto) Neut % (Auto) Lymph % (Auto) [place] % (Auto) Eos % (Auto) Baso % (Auto) Lymph # (Auto) [place] # (Auto) Eos # (Auto) Baso # (Auto) Abs Immat Gran (auto) Absolute Neuts (auto) Absolute Nucleated RBC 0.000 Nucleated RBC % (auto) 0.0 PT INR APTT D-Dimer VBG pH VBG pCO2 VBG pO2 VBG HCO3 VBG O2 Saturation VBG Base Excess Sodium 152 H Potassium 3.4 Chloride 121 H Carbon Dioxide 19 L Anion Gap 15 BUN 78 H Creatinine 2.70 H Estim Creat Clear Calc 49.0 Estimated GFR 26 POC Glucose 153 H Random Glucose 177 H D Calcium 8.3 L Phosphorus Magnesium Total Bilirubin AST ALT Alkaline Phosphatase C-Reactive Protein B-Natriuretic Peptide Total Protein Albumin 01/20/21 01/20/21 01/20/21 00:21 02:05 04:03 WBC RBC Hgb Hct MCV MCH MCHC RDW Plt Count MPV Immature Gran % (Auto) Neut % (Auto) Lymph % (Auto) [place] % (Auto) Eos % (Auto) Baso % (Auto) Lymph # (Auto) [place] # (Auto) Eos # (Auto) Baso # (Auto) Abs Immat Gran (auto) Absolute Neuts (auto) Absolute Nucleated RBC Nucleated RBC % (auto) PT INR APTT D-Dimer VBG pH VBG pCO2 VBG pO2 VBG HCO3 VBG O2 Saturation VBG Base Excess Sodium Potassium Chloride Carbon Dioxide Anion Gap BUN Creatinine Estim Creat Clear Calc Estimated GFR POC Glucose 170 H 176 H 162 H Random Glucose Calcium Phosphorus Magnesium Total Bilirubin AST ALT Alkaline Phosphatase C-Reactive Protein B-Natriuretic Peptide Total Protein Albumin 01/20/21 01/20/21 01/20/21 05:29 05:30 05:30 WBC 8.4 RBC 2.92 L Hgb 8.1 L Hct 25.9 L MCV 88.7 MCH 27.7 MCHC 31.3 RDW 15.2 Plt Count 103 L MPV 12.8 H Immature Gran % (Auto) 0.6 H Neut % (Auto) 84.7 H Lymph % (Auto) 8.2 L [place] % (Auto) 6.5 Eos % (Auto) 0.0 Baso % (Auto) 0.0 Lymph # (Auto) 0.7 L [place] # (Auto) 0.6 Eos # (Auto) 0.0 Baso # (Auto) 0.0 Abs Immat Gran (auto) 0.05 H Absolute Neuts (auto) 7.1 Absolute Nucleated RBC 0.000 Nucleated RBC % (auto) 0.0 PT 11.5 INR 1.0 APTT 24.8 D-Dimer 837 VBG pH 7.36 VBG pCO2 37 VBG pO2 51 VBG HCO3 21 L VBG O2 Saturation 79.0 VBG Base Excess -3.2 Sodium Potassium Chloride Carbon Dioxide Anion Gap BUN Creatinine Estim Creat Clear Calc Estimated GFR POC Glucose Random Glucose Calcium Phosphorus Magnesium Total Bilirubin AST ALT Alkaline Phosphatase C-Reactive Protein B-Natriuretic Peptide Total Protein Albumin 01/20/21 01/20/21 01/20/21 05:30 05:30 06:11 WBC RBC Hgb Hct MCV MCH MCHC RDW Plt Count MPV Immature Gran % (Auto) Neut % (Auto) Lymph % (Auto) [place] % (Auto) Eos % (Auto) Baso % (Auto) Lymph # (Auto) [place] # (Auto) Eos # (Auto) Baso # (Auto) Abs Immat Gran (auto) Absolute Neuts (auto) Absolute Nucleated RBC Nucleated RBC % (auto) PT INR APTT D-Dimer VBG pH VBG pCO2 VBG pO2 VBG HCO3 VBG O2 Saturation VBG Base Excess Sodium 151 H Potassium 3.4 Chloride 121 H Carbon Dioxide 21 L Anion Gap 12 BUN 70 H Creatinine 2.51 H Estim Creat Clear Calc 52.7 Estimated GFR 28 POC Glucose 150 H Random Glucose 173 H Calcium 8.2 L Phosphorus 3.8 Magnesium 2.5 Total Bilirubin 0.4 AST 14 D ALT 25 Alkaline Phosphatase 73 C-Reactive Protein 4.16 H B-Natriuretic Peptide 684 H Total Protein 5.3 L Albumin 2.5 L 01/20/21 01/20/21 01/20/21 07:57 10:01 12:12 WBC RBC Hgb Hct MCV MCH MCHC RDW Plt Count MPV Immature Gran % (Auto) Neut % (Auto) Lymph % (Auto) [place] % (Auto) Eos % (Auto) Baso % (Auto) Lymph # (Auto) [place] # (Auto) Eos # (Auto) Baso # (Auto) Abs Immat Gran (auto) Absolute Neuts (auto) Absolute Nucleated RBC Nucleated RBC % (auto) PT INR APTT D-Dimer VBG pH VBG pCO2 VBG pO2 VBG HCO3 VBG O2 Saturation VBG Base Excess Sodium Potassium Chloride Carbon Dioxide Anion Gap BUN Creatinine Estim Creat Clear Calc Estimated GFR POC Glucose 125 H 132 H 149 H Random Glucose Calcium Phosphorus Magnesium Total Bilirubin AST ALT Alkaline Phosphatase C-Reactive Protein B-Natriuretic Peptide Total Protein Albumin Microbiology Microbiology Results: Microbiology 01/19/21 08:06 Sputum - Suctioned Gram Stain - Final 01/19/21 08:06 Sputum - Suctioned Sputum Culture - Preliminary Strep agalactiae (Grp B) 01/15/21 05:54 Blood - Central Line Blood Culture - Final No growth after 5 days. 01/15/21 05:54 Blood - Central Line Blood Culture - Final No growth after 5 days. 01/09/21 21:01 Sputum - Suctioned Gram Stain - Final 01/09/21 21:01 Sputum - Suctioned Sputum Culture - Final 01/07/21 05:25 Blood - Venous Blood Culture - Final No growth after 5 days. 01/07/21 05:18 Blood - Venous Blood Culture - Final No growth after 5 days. Progress Note: A&P Assessment and plan (1) Acute respiratory distress syndrome (ARDS) due to COVID-19 virus: Status: Acute (2) Colitis: Status: Acute (3) Acute on chronic kidney failure: Status: Acute (4) Acute respiratory failure with hypoxia: Status: Acute (5) COVID-19: Status: Acute (6) Respiratory failure: Status: Acute (7) Hepatitis C, chronic: Status: Acute (8) Cirrhosis: Status: Acute (9) Asthma exacerbation: Status: Acute (10) Colonic mass: Status: Acute (11) Chronic kidney disease (CKD), stage III (moderate): Status: Acute (12) GI bleed: Status: Acute (13) COVID-19: Status: Acute (14) Opiate abuse, episodic: Status: Acute (15) Hypertension: Status: Acute (16) Diabetes: Status: Acute (17) Amputated below knee: Status: Acute Assessment and Plan: plan is to maintain current FiO2 of 40% and volume control settings possibly morning wean him off sedation if cognitive function is improved I would plan a pressure support trial will continue D5W drip for the hypernatremia with potassium replacement and we are now reinstating feedings because we have stopped the paralytic and chest tube was discontinued Quality Stroke Does the patient have a stroke diagnosis?: No VTE Prior VTE?: No VTE Risk Level:: Medical - moderate - high VTE Device Contraindication: Treatment Not Indicated VTE Drug Contraindication: N/A - Med Ordered
[2021-01-20] MEDS: propofoL 1,000 MG/100 ML VIAL 38.97 MG IVCONT ×4 (16:20→23:42)
[2021-01-20 16:26] LABS: Glucose, Whole Blood 167 mg/dL (60-115)
[2021-01-20 16:26] LABS: Glucose, Whole Blood 172 mg/dL (60-115)
--- NOTE | 2021-01-20 17:52 | P.PNNP_ITS ---
Subjective Subjective Date of Service: 01/20/21 Interval history: Seen and examined. Events noted Physical Exam Vital Signs: Vital Signs: Last Vital Signs Temp 100.4 F 01/20/21 17:00 Pulse 97 01/20/21 17:00 Resp 20 01/20/21 17:00 BP 144/69 H 01/20/21 17:00 Pulse Ox 90 L 01/20/21 17:00 Oxygen Flow Rate 100 01/07/21 05:11 Body Mass Index 36.0 Const: General: no acute distress, alert, awake and anxious Nutritional Appearance: obese Eyes: Sclerae: sclerae normal EOM: EOMs intact bilaterally Neck: Neck: Yes no lymphadenopathy, Yes trachea midline and Yes supple Resp: Effort & Inspection: normal respiratory effort and no respiratory distress ( On high-flow nasal cannula and non-rebreather) Auscultation: crackles ( diffuse bilateral) and rhonchi Cardio: Rate: regular rate and tachycardic Rhythm: regular rhythm Heart sounds: no gallops, no murmurs and no rubs GI: Inspection: Yes normal to inspection Palpation (GI): Soft to palpation and Other GI palpation findings present ( Nontender) Auscultation: normal bowel sounds Extrem: General: No clubbing, No cyanosis and Yes other ( bilateral BKA) Objective Data Labs CBC & Chem 7: 01/20/21 05:30 01/20/21 05:30 Labs: Laboratory Results - last 24 hr 01/19/21 01/19/21 01/19/21 18:33 20:03 22:07 WBC 9.1 RBC 2.88 L Hgb 7.9 L Hct 25.7 L MCV 89.2 MCH 27.4 MCHC 30.7 L RDW 15.1 Plt Count 106 L MPV 13.2 H Immature Gran % (Auto) Neut % (Auto) Lymph % (Auto) [place] % (Auto) Eos % (Auto) Baso % (Auto) Lymph # (Auto) [place] # (Auto) Eos # (Auto) Baso # (Auto) Abs Immat Gran (auto) Absolute Neuts (auto) Absolute Nucleated RBC 0.000 Nucleated RBC % (auto) 0.0 PT INR APTT D-Dimer VBG pH VBG pCO2 VBG pO2 VBG HCO3 VBG O2 Saturation VBG Base Excess Sodium Potassium Chloride Carbon Dioxide Anion Gap BUN Creatinine Estim Creat Clear Calc Estimated GFR POC Glucose 221 H 173 H Random Glucose Calcium Phosphorus Magnesium Total Bilirubin AST ALT Alkaline Phosphatase C-Reactive Protein B-Natriuretic Peptide Total Protein Albumin 01/19/21 01/19/21 01/20/21 22:07 22:14 00:21 WBC RBC Hgb Hct MCV MCH MCHC RDW Plt Count MPV Immature Gran % (Auto) Neut % (Auto) Lymph % (Auto) [place] % (Auto) Eos % (Auto) Baso % (Auto) Lymph # (Auto) [place] # (Auto) Eos # (Auto) Baso # (Auto) Abs Immat Gran (auto) Absolute Neuts (auto) Absolute Nucleated RBC Nucleated RBC % (auto) PT INR APTT D-Dimer VBG pH VBG pCO2 VBG pO2 VBG HCO3 VBG O2 Saturation VBG Base Excess Sodium 152 H Potassium 3.4 Chloride 121 H Carbon Dioxide 19 L Anion Gap 15 BUN 78 H Creatinine 2.70 H Estim Creat Clear Calc 49.0 Estimated GFR 26 POC Glucose 153 H 170 H Random Glucose 177 H D Calcium 8.3 L Phosphorus Magnesium Total Bilirubin AST ALT Alkaline Phosphatase C-Reactive Protein B-Natriuretic Peptide Total Protein Albumin 01/20/21 01/20/21 01/20/21 02:05 04:03 05:29 WBC RBC Hgb Hct MCV MCH MCHC RDW Plt Count MPV Immature Gran % (Auto) Neut % (Auto) Lymph % (Auto) [place] % (Auto) Eos % (Auto) Baso % (Auto) Lymph # (Auto) [place] # (Auto) Eos # (Auto) Baso # (Auto) Abs Immat Gran (auto) Absolute Neuts (auto) Absolute Nucleated RBC Nucleated RBC % (auto) PT INR APTT D-Dimer VBG pH 7.36 VBG pCO2 37 VBG pO2 51 VBG HCO3 21 L VBG O2 Saturation 79.0 VBG Base Excess -3.2 Sodium Potassium Chloride Carbon Dioxide Anion Gap BUN Creatinine Estim Creat Clear Calc Estimated GFR POC Glucose 176 H 162 H Random Glucose Calcium Phosphorus Magnesium Total Bilirubin AST ALT Alkaline Phosphatase C-Reactive Protein B-Natriuretic Peptide Total Protein Albumin 01/20/21 01/20/21 01/20/21 05:30 05:30 05:30 WBC 8.4 RBC 2.92 L Hgb 8.1 L Hct 25.9 L MCV 88.7 MCH 27.7 MCHC 31.3 RDW 15.2 Plt Count 103 L MPV 12.8 H Immature Gran % (Auto) 0.6 H Neut % (Auto) 84.7 H Lymph % (Auto) 8.2 L [place] % (Auto) 6.5 Eos % (Auto) 0.0 Baso % (Auto) 0.0 Lymph # (Auto) 0.7 L [place] # (Auto) 0.6 Eos # (Auto) 0.0 Baso # (Auto) 0.0 Abs Immat Gran (auto) 0.05 H Absolute Neuts (auto) 7.1 Absolute Nucleated RBC 0.000 Nucleated RBC % (auto) 0.0 PT 11.5 INR 1.0 APTT 24.8 D-Dimer 837 VBG pH VBG pCO2 VBG pO2 VBG HCO3 VBG O2 Saturation VBG Base Excess Sodium 151 H Potassium 3.4 Chloride 121 H Carbon Dioxide 21 L Anion Gap 12 BUN 70 H Creatinine 2.51 H Estim Creat Clear Calc 52.7 Estimated GFR 28 POC Glucose Random Glucose 173 H Calcium 8.2 L Phosphorus 3.8 Magnesium 2.5 Total Bilirubin 0.4 AST 14 D ALT 25 Alkaline Phosphatase 73 C-Reactive Protein 4.16 H B-Natriuretic Peptide Total Protein 5.3 L Albumin 2.5 L 01/20/21 01/20/21 01/20/21 05:30 06:11 07:57 WBC RBC Hgb Hct MCV MCH MCHC RDW Plt Count MPV Immature Gran % (Auto) Neut % (Auto) Lymph % (Auto) [place] % (Auto) Eos % (Auto) Baso % (Auto) Lymph # (Auto) [place] # (Auto) Eos # (Auto) Baso # (Auto) Abs Immat Gran (auto) Absolute Neuts (auto) Absolute Nucleated RBC Nucleated RBC % (auto) PT INR APTT D-Dimer VBG pH VBG pCO2 VBG pO2 VBG HCO3 VBG O2 Saturation VBG Base Excess Sodium Potassium Chloride Carbon Dioxide Anion Gap BUN Creatinine Estim Creat Clear Calc Estimated GFR POC Glucose 150 H 125 H Random Glucose Calcium Phosphorus Magnesium Total Bilirubin AST ALT Alkaline Phosphatase C-Reactive Protein B-Natriuretic Peptide 684 H Total Protein Albumin 01/20/21 01/20/21 01/20/21 10:01 12:12 14:03 WBC RBC Hgb Hct MCV MCH MCHC RDW Plt Count MPV Immature Gran % (Auto) Neut % (Auto) Lymph % (Auto) [place] % (Auto) Eos % (Auto) Baso % (Auto) Lymph # (Auto) [place] # (Auto) Eos # (Auto) Baso # (Auto) Abs Immat Gran (auto) Absolute Neuts (auto) Absolute Nucleated RBC Nucleated RBC % (auto) PT INR APTT D-Dimer VBG pH VBG pCO2 VBG pO2 VBG HCO3 VBG O2 Saturation VBG Base Excess Sodium Potassium Chloride Carbon Dioxide Anion Gap BUN Creatinine Estim Creat Clear Calc Estimated GFR POC Glucose 132 H 149 H 167 H Random Glucose Calcium Phosphorus Magnesium Total Bilirubin AST ALT Alkaline Phosphatase C-Reactive Protein B-Natriuretic Peptide Total Protein Albumin 01/20/21 16:20 WBC RBC Hgb Hct MCV MCH MCHC RDW Plt Count MPV Immature Gran % (Auto) Neut % (Auto) Lymph % (Auto) [place] % (Auto) Eos % (Auto) Baso % (Auto) Lymph # (Auto) [place] # (Auto) Eos # (Auto) Baso # (Auto) Abs Immat Gran (auto) Absolute Neuts (auto) Absolute Nucleated RBC Nucleated RBC % (auto) PT INR APTT D-Dimer VBG pH VBG pCO2 VBG pO2 VBG HCO3 VBG O2 Saturation VBG Base Excess Sodium Potassium Chloride Carbon Dioxide Anion Gap BUN Creatinine Estim Creat Clear Calc Estimated GFR POC Glucose 172 H Random Glucose Calcium Phosphorus Magnesium Total Bilirubin AST ALT Alkaline Phosphatase C-Reactive Protein B-Natriuretic Peptide Total Protein Albumin Microbiology Microbiology Results: Microbiology 01/19/21 08:06 Sputum - Suctioned Gram Stain - Final 01/19/21 08:06 Sputum - Suctioned Sputum Culture - Preliminary Strep agalactiae (Grp B) 01/15/21 05:54 Blood - Central Line Blood Culture - Final No growth after 5 days. 01/15/21 05:54 Blood - Central Line Blood Culture - Final No growth after 5 days. 01/09/21 21:01 Sputum - Suctioned Gram Stain - Final 01/09/21 21:01 Sputum - Suctioned Sputum Culture - Final 01/07/21 05:25 Blood - Venous Blood Culture - Final No growth after 5 days. 01/07/21 05:18 Blood - Venous Blood Culture - Final No growth after 5 days. Assessment & Plan Assessment and plan (1) Acute respiratory distress syndrome (ARDS) due to COVID-19 virus: Status: Acute (2) Acute on chronic kidney failure: Status: Acute Assessment and Plan: Mr. Preciado is a 45-year-old gnetlmean with uncontrolled DM2, uncontrolled HTN, right BKA, left BKA, osteomyelitis right shoulder, and CKD stage IIIB/IV with BL Cr 2.7-2.8mg/dL who now has COVID ARDS. Renal function stable. Intubated, sedated, with chest tube. 1. KIRILL: Scr close to bsl 2.5 Scr 2. ADv CKD 4: DN/hep C 3. Incr Bun/Cr: multifact including stds 4. Vol: looks ok for now w cont UOP 5. NAGMA 6. 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 HyperNatremia REC: need to incr replace FW deficit; cont to track renal func; ques titrate STDs; no need for mathematical scientist at this time will follo with ICU team (3) Acute respiratory failure with hypoxia: Status: Acute (4) Hepatitis C, chronic: Status: Acute (5) Cirrhosis: Status: Acute (6) Diabetes: Status: Acute (7) Hypertension: Status: Acute Time Spent With Patient Time: Total time spent is greater than 50% in coordination of care (as documente d) at patient's floor/unit and/or counseling patient: Procedures Date of Service Date of Service: 01/20/21 Progress Note: Quality Stroke Does the patient have a stroke diagnosis?: No
--- NOTE | 2021-01-20 18:36 | PC.NURSE ---
Intubated and sedated on Propofol and Versed. Nimbex turned off this AM at 0730 per MD. Wrist restraints intact, no spontaneous limb movement as of yet but is able to flutter eyelids to stim. Chest tube pulled at 10:30 by MD. Occlusive petroleum gauze with 2x2 gauze +Transparent window dressing applied on removal. No complications post-removal. Vent settings changed to PC at 11:15, rate set at 16, FiO2 remains 40%, Pi set at 22. Feeds restarted today at noon at 10mL/hr with [employer] and free water boluses as ordered. Feeds increased to 20mL/hr at 16:00, residuals 160mL. Insulin drip per protocol. Repositioned q2hrs. skin remains intact, barrier cream in use. No BM today. Pillows in use for pressure relief. Oral care per Vent bundle protocol. Family updated by SW today, daughter on the tablet FaceTiming at this time.
[2021-01-20 19:18] LABS: Glucose, Whole Blood 143 mg/dL (60-115)
[2021-01-20] MEDS: Cisatracurium Besylate 20 MG/10 ML VIAL 10 MG IVPUSH ×2 (19:24→22:16)
[2021-01-20 20:05] LABS: Glucose, Whole Blood 130 mg/dL (60-115)
[2021-01-20] MEDS: 0.9 % Sodium Chloride Flush 3 ML SYRINGE IVFLUSH (23:43)
[2021-01-20 23:55] LABS: Glucose, Whole Blood 125 mg/dL (60-115)
[2021-01-20 23:55] LABS: Glucose, Whole Blood 150 mg/dL (60-115)
[2021-01-21] VITALS (35 sets, daily range): BP systolic 134–185; BP diastolic 58–96; PULSE 81–100; RESP 17–35; TEMP 36.6–37.8; O2SAT 91–96; BMI 35.9
--- NOTE | 2021-01-21 00:22 | PC.NURSE ---
resp status has been tenuous at best. initially pt asynchronous with ventilator on pressure control mode. vt declining into 100-150 ml range. sao2 dropped to 86-87%. midlevel mike elias summoned to bedside. mode changed to ac mode and nimbex 10 mg ivp administered with improvement of resp status. unfortunately, pt has had continued episodes of o2 desaturation fio2 has been increased to 50% and 2 additional doses of nimbex have been administered. cxr done which shows bilat opacities no pneumothorax. breath sounds are congested with coarse scattered rhonchi. suctioned via ett for scant amounts of clear thick secretions. currently, sao2 93%. discussed labetalol administration with bryan elias. sbp 120-140 mmhg. will hold scheduled labetalol for now. also to note an intermittent cuff leak of pts endotracheal tube has been noted. at this juncture, pt's endotracheal cuff has required 0.5 ml of air x 2 to terminate cuff leak. ecg displays sr. abdomen large/semisoft and silent. tube feedings on hold d/t paralytic administration and high gastric residuals. insulin drip adjusted per protocol. [place] catheter patent and draining hazy yellow urine. u/o 50-100ml/hr. mother lena called in for status report information provided and questions answered.
[2021-01-21] MEDS: propofoL 1,000 MG/100 ML VIAL 38.97 MG IVCONT ×3 (02:13→06:50)
[2021-01-21 02:35] LABS: Glucose, Whole Blood 183 mg/dL (60-115)
[2021-01-21] MEDS: Insulin Regular/NS 100 UNIT/100 ML PLAST..BAG 6 UNIT IVCONT (03:59)
[2021-01-21] MEDS: Midazolam HCl/NS 50 MG/50 ML PLAST..BAG IVCONT ×2 (04:00→23:31)
[2021-01-21] MEDS: Heparin Sodium,Porcine 5,000 UNIT/ML VIAL 5000 UNIT SUBCUT ×3 (04:00→19:30)
[2021-01-21 04:28] LABS: Glucose, Whole Blood 204 mg/dL (60-115)
[2021-01-21 05:34] LABS: VBG Base Excess -3.9 mmol/L; VBG HCO3 21 mmol/L (22-26); VBG pCO2 37 mmHg; VBG pH 7.35 (7.32-7.43); VBG pO2 97 mmHg
[2021-01-21 05:35] LABS: Venous Blood Gas Refer to POC result
[2021-01-21 05:51] LABS: Hemoglobin 7.9 g/dl (14.0-18.0); PLT ABN DIST 1; SCAN SMEAR FLAG 1
[2021-01-21 05:53] LABS: Hematocrit 25.1 % (42-52); Imm Gran Abs Auto 0.06 X10*3/uL (0.00-0.03); Imm Gran Pct Auto 0.8 % (0.0-0.4); Lymphocytes Absolute Auto 0.5 X10*3/uL (1.2-4.9); Lymphocytes Percent Auto 7.2 % (20-40); Mean Corpuscular HGB Conc 31.5 g/dl (31.0-36.0); Mean Corpuscular Hemoglobin 27.8 pg (27.0-33.0); Mean Corpuscular Volume 88.4 fL (80-98); Mean Platelet Volume 13.3 fL (9.4-12.4); Monocytes Absolute Auto 0.4 X10*3/uL (0.1-1.2); Monocytes Percent Auto 5.7 % (2-11); Neutrophils Absolute Auto 6.5 X10*3/uL (2.0-8.3); Neutrophils Percent Auto 86.3 % (45-73); Red Blood Count 2.84 X10*6/uL (4.60-5.80); Red Cell Distribution Width 15.3 % (11.0-16.0); White Blood Count 7.5 X10*3/uL (4.8-10.8)
[2021-01-21 05:54] LABS: Platelet Count 90 X10*3/uL (160-400)
[2021-01-21 05:55] LABS: MANUAL DIFF FLAG NO
[2021-01-21 06:00] LABS: Prothrombin Time 11.5 SEC (9.9-13.0)
[2021-01-21 06:03] LABS: D Dimer 805 NG/ML; Partial Thromboplastin Time 24.5 SEC (24.1-38.0)
[2021-01-21 06:22] LABS: Alanine Aminotransferase 30 U/L (0-40); Albumin Level 2.3 g/dL (3.5-5.0); Alkaline Phosphatase 77 U/L (39-117); Anion Gap 13 (12-20); Aspartate Amino Transferase 22 U/L (5-37); Bilirubin Total 0.6 mg/dL (0.0-1.0); Blood Urea Nitrogen 62 mg/dL (9-16); C Reactive Protein 4.09 mg/dL (< or = 0.50); Calcium 7.9 mg/dL (8.4-10.2); Carbon Dioxide 20 mmol/L (22-29); Chloride 116 mmol/L (96-108); Creatinine Clr Calc Pharmacy 56.4; Estimated Glomerular Filt Rate 30; Glucose Random 212 mg/dL (60-115); Magnesium 2.2 mg/dL (1.6-2.6); Phosphorus 3.5 mg/dL (2.7-4.5); Potassium 4.1 mmol/L (3.3-5.1); Sodium 145 mmol/L (135-145); Total Protein 5.2 g/dL (6.5-8.0)
[2021-01-21 06:23] LABS: Glucose, Whole Blood 179 mg/dL (60-115)
[2021-01-21 08:20] LABS: Glucose, Whole Blood 143 mg/dL (60-115)
[2021-01-21] MEDS: Sevelamer Carbonate Powder 800 MG POWD.PACK 1600 MG PO ×3 (08:40→16:22)
[2021-01-21] MEDS: Sodium Bicarbonate 650 MG TABLET PO ×4 (08:41→22:31)
[2021-01-21] MEDS: Chlorhexidine Gluc Oral Rinse 15 ML MOUTHWASH BUCCAL ×3 (08:41→19:31)
[2021-01-21] MEDS: 0.9 % Sodium Chloride Flush 3 ML SYRINGE IVFLUSH ×2 (08:41→16:22)
[2021-01-21] MEDS: methylPREDNISolone Sod Succ 125 MG/2 ML VIAL 50 MG IVPUSH ×2 (08:41→18:35)
[2021-01-21] MEDS: Aspirin 81 MG TAB.CHEW OG-TUBE (08:42)
[2021-01-21] MEDS: Lactulose 20 GM/30 ML SOLUTION OG-TUBE ×2 (08:42→19:30)
[2021-01-21] MEDS: Labetalol HCL 100 MG TABLET 300 MG OG-TUBE ×2 (08:42→19:31)
[2021-01-21] MEDS: propofoL 1,000 MG/100 ML VIAL 31.18 MG IVCONT (09:00)
[2021-01-21 10:20] LABS: Glucose, Whole Blood 126 mg/dL (60-115)
[2021-01-21] MEDS: Labetalol HCL 100 MG/20 ML VIAL 10 MG IVPUSH ×2 (11:53→14:17)
--- NOTE | 2021-01-21 12:49 | P.PNNP_ITS ---
Subjective Subjective Date of Service: 01/21/21 Interval history: Cr stable VSS Physical Exam Vital Signs: Vital Signs: Last Vital Signs Temp 98.6 F 01/21/21 12:00 Pulse 90 01/21/21 12:00 Resp 28 H 01/21/21 12:00 BP 162/91 H 01/21/21 12:00 Pulse Ox 92 01/21/21 12:00 Oxygen Flow Rate 100 01/07/21 05:11 Body Mass Index 35.9 Const: General: no acute distress, alert, awake and anxious Nutritional Appearance: obese Eyes: Sclerae: sclerae normal EOM: EOMs intact bilaterally Neck: Neck: Yes no lymphadenopathy, Yes trachea midline and Yes supple Resp: Effort & Inspection: normal respiratory effort and no respiratory distress ( On high-flow nasal cannula and non-rebreather) Auscultation: crackles ( diffuse bilateral) and rhonchi Cardio: Rate: regular rate and tachycardic Rhythm: regular rhythm Heart sounds: no gallops, no murmurs and no rubs GI: Inspection: Yes normal to inspection Palpation (GI): Soft to palpation and Other GI palpation findings present ( Nontender) Auscultation: normal bowel sounds Extrem: General: No clubbing, No cyanosis and Yes other ( bilateral BKA) Objective Data Labs CBC & Chem 7: 01/21/21 05:22 01/21/21 05:22 Labs: Laboratory Results - last 24 hr 01/20/21 01/20/21 01/20/21 14:03 16:20 18:19 WBC RBC Hgb Hct MCV MCH MCHC RDW Plt Count MPV Immature Gran % (Auto) Neut % (Auto) Lymph % (Auto) [place] % (Auto) Eos % (Auto) Baso % (Auto) Lymph # (Auto) [place] # (Auto) Eos # (Auto) Baso # (Auto) Abs Immat Gran (auto) Absolute Neuts (auto) Absolute Nucleated RBC Nucleated RBC % (auto) PT INR APTT D-Dimer VBG pH VBG pCO2 VBG pO2 VBG HCO3 VBG O2 Saturation VBG Base Excess Sodium Potassium Chloride Carbon Dioxide Anion Gap BUN Creatinine Estim Creat Clear Calc Estimated GFR POC Glucose 167 H 172 H 143 H Random Glucose Calcium Phosphorus Magnesium Total Bilirubin AST ALT Alkaline Phosphatase C-Reactive Protein Total Protein Albumin 01/20/21 01/20/21 01/20/21 19:44 21:56 23:49 WBC RBC Hgb Hct MCV MCH MCHC RDW Plt Count MPV Immature Gran % (Auto) Neut % (Auto) Lymph % (Auto) [place] % (Auto) Eos % (Auto) Baso % (Auto) Lymph # (Auto) [place] # (Auto) Eos # (Auto) Baso # (Auto) Abs Immat Gran (auto) Absolute Neuts (auto) Absolute Nucleated RBC Nucleated RBC % (auto) PT INR APTT D-Dimer VBG pH VBG pCO2 VBG pO2 VBG HCO3 VBG O2 Saturation VBG Base Excess Sodium Potassium Chloride Carbon Dioxide Anion Gap BUN Creatinine Estim Creat Clear Calc Estimated GFR POC Glucose 130 H 125 H 150 H Random Glucose Calcium Phosphorus Magnesium Total Bilirubin AST ALT Alkaline Phosphatase C-Reactive Protein Total Protein Albumin 01/21/21 01/21/21 01/21/21 02:12 04:10 05:22 WBC 7.5 RBC 2.84 L Hgb 7.9 L Hct 25.1 L MCV 88.4 MCH 27.8 MCHC 31.5 RDW 15.3 Plt Count 90 L MPV 13.3 H Immature Gran % (Auto) 0.8 H Neut % (Auto) 86.3 H Lymph % (Auto) 7.2 L [place] % (Auto) 5.7 Eos % (Auto) 0.0 Baso % (Auto) 0.0 Lymph # (Auto) 0.5 L [place] # (Auto) 0.4 Eos # (Auto) 0.0 Baso # (Auto) 0.0 Abs Immat Gran (auto) 0.06 H Absolute Neuts (auto) 6.5 Absolute Nucleated RBC 0.000 Nucleated RBC % (auto) 0.0 PT INR APTT D-Dimer VBG pH VBG pCO2 VBG pO2 VBG HCO3 VBG O2 Saturation VBG Base Excess Sodium Potassium Chloride Carbon Dioxide Anion Gap BUN Creatinine Estim Creat Clear Calc Estimated GFR POC Glucose 183 H 204 H Random Glucose Calcium Phosphorus Magnesium Total Bilirubin AST ALT Alkaline Phosphatase C-Reactive Protein Total Protein Albumin 01/21/21 01/21/21 01/21/21 05:22 05:22 05:27 WBC RBC Hgb Hct MCV MCH MCHC RDW Plt Count MPV Immature Gran % (Auto) Neut % (Auto) Lymph % (Auto) [place] % (Auto) Eos % (Auto) Baso % (Auto) Lymph # (Auto) [place] # (Auto) Eos # (Auto) Baso # (Auto) Abs Immat Gran (auto) Absolute Neuts (auto) Absolute Nucleated RBC Nucleated RBC % (auto) PT 11.5 INR 1.0 APTT 24.5 D-Dimer 805 VBG pH 7.35 VBG pCO2 37 VBG pO2 97 VBG HCO3 21 L VBG O2 Saturation 96.0 VBG Base Excess -3.9 Sodium 145 Potassium 4.1 D Chloride 116 H Carbon Dioxide 20 L Anion Gap 13 BUN 62 H Creatinine 2.34 H Estim Creat Clear Calc 56.4 Estimated GFR 30 POC Glucose Random Glucose 212 H Calcium 7.9 L Phosphorus 3.5 Magnesium 2.2 Total Bilirubin 0.6 AST 22 D ALT 30 Alkaline Phosphatase 77 C-Reactive Protein 4.09 H Total Protein 5.2 L Albumin 2.3 L 01/21/21 01/21/21 01/21/21 06:17 08:15 10:12 WBC RBC Hgb Hct MCV MCH MCHC RDW Plt Count MPV Immature Gran % (Auto) Neut % (Auto) Lymph % (Auto) [place] % (Auto) Eos % (Auto) Baso % (Auto) Lymph # (Auto) [place] # (Auto) Eos # (Auto) Baso # (Auto) Abs Immat Gran (auto) Absolute Neuts (auto) Absolute Nucleated RBC Nucleated RBC % (auto) PT INR APTT D-Dimer VBG pH VBG pCO2 VBG pO2 VBG HCO3 VBG O2 Saturation VBG Base Excess Sodium Potassium Chloride Carbon Dioxide Anion Gap BUN Creatinine Estim Creat Clear Calc Estimated GFR POC Glucose 179 H 143 H 126 H Random Glucose Calcium Phosphorus Magnesium Total Bilirubin AST ALT Alkaline Phosphatase C-Reactive Protein Total Protein Albumin Microbiology Microbiology Results: Microbiology 01/19/21 08:06 Sputum - Suctioned Gram Stain - Final 01/19/21 08:06 Sputum - Suctioned Sputum Culture - Final Strep agalactiae (Grp B) 01/15/21 05:54 Blood - Central Line Blood Culture - Final No growth after 5 days. 01/15/21 05:54 Blood - Central Line Blood Culture - Final No growth after 5 days. 01/09/21 21:01 Sputum - Suctioned Gram Stain - Final 01/09/21 21:01 Sputum - Suctioned Sputum Culture - Final 01/07/21 05:25 Blood - Venous Blood Culture - Final No growth after 5 days. 01/07/21 05:18 Blood - Venous Blood Culture - Final No growth after 5 days. Assessment & Plan Assessment and plan (1) Acute respiratory distress syndrome (ARDS) due to COVID-19 virus: Status: Acute (2) Acute on chronic kidney failure: Status: Acute Assessment and Plan: Mr. Preciado is a 45-year-old gnetlmean with uncontrolled DM2, uncontrolled HTN, right BKA, left BKA, osteomyelitis right shoulder, and CKD stage IIIB/IV with BL Cr 2.7-2.8mg/dL who now has COVID ARDS. Renal function stable. Required Intubattion and even chest tube. 1. KIRILL: Scr under baseline at 2.3mg/dL ?a function of muscle wasiting for critical illness. 2. Advanced CKD 4: DN/hep C 3.Vol: looks ok for now w cont UOP 4. NAGMA 5. 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 HyperNatremia REC: - monitor free water deficit, currently well controlled - monitor renal panel - conservative approach - BP well controlled occasionally elevated (3) Acute respiratory failure with hypoxia: Status: Acute (4) Hepatitis C, chronic: Status: Acute (5) Cirrhosis: Status: Acute (6) Diabetes: Status: Acute (7) Hypertension: Status: Acute Time Spent With Patient Time: Total time spent is greater than 50% in coordination of care (as documented) at patient's floor/unit and/or counseling patient: Procedures Date of Service Date of Service: 01/21/21 Progress Note: Quality Stroke Does the patient have a stroke diagnosis?: No
[2021-01-21 13:03] LABS: Glucose, Whole Blood 145 mg/dL (60-115)
[2021-01-21] MEDS: propofoL 1,000 MG/100 ML VIAL 15.59 MG IVCONT (15:05)
--- NOTE | 2021-01-21 15:38 | PM.CCPN ---
Subjective Subjective Date of Service: 01/21/21 Interval History: 45-year-old obese insulin-dependent diabetic hypertensive and hyperlipidemic with nephropathy and retinopathy and peripheral vasculopathy who despite J and J immunization in October developed severe COVID-19 pneumonitis and ARDS and acute hypoxic respiratory failure and on ventilator now for close to 2 weeks and now down to an FiO2 of 45% and he was somewhat distress this morning with 2 days representing 2.5 L of positive intake and output and this was due to his hypernatremia that we needed to treat and I believe his chest x-ray looked congested in his CVP did climb I simply stopped as much fluid intake as possible chose not to diurese him because his sodium is finally normalized at 1:45 a.m. and his BUN and creatinine are really down to their best numbers that he has had in years and with his CVP subsequently had dropped down to about 3 and is respiratory distress 1 away very quiet morning and he had a sedation holiday from which he woke up with good cognitive function and had several hours of pressure support trial and then he began to tire so he was replaced on sedation plus assist control and doing very well on FiO2 of 40% with minute ventilatory needs now just under 10 L Critical Care Time (minutes): 45 Physical Exam Vital Signs: Vital Signs: Last Vital Signs Temp 99.9 F 01/21/21 15:00 Pulse 94 01/21/21 15:00 Resp 30 H 01/21/21 15:00 BP 185/77 H 01/21/21 15:00 Pulse Ox 94 01/21/21 15:00 Oxygen Flow Rate 100 01/07/21 05:11 Body Mass Index 35.9 Const: Other: good cognitive function and no focal neurologic findings bedside echo with normal LV function chest with some a course bilateral ve ntilatory sounds abdomen benign and doing well on feedings no organomegaly Objective Data Labs CBC & Chem 7: 01/21/21 05:22 01/21/21 05:22 Labs: Laboratory Results - last 24 hr 01/20/21 01/20/21 01/20/21 14:03 16:20 18:19 WBC RBC Hgb Hct MCV MCH MCHC RDW Plt Count MPV Immature Gran % (Auto) Neut % (Auto) Lymph % (Auto) Hendricks % (Auto) Eos % (Auto) Baso % (Auto) Lymph # (Auto) Hendricks # (Auto) Eos # (Auto) Baso # (Auto) Abs Immat Gran (auto) Absolute Neuts (auto) Absolute Nucleated RBC Nucleated RBC % (auto) PT INR APTT D-Dimer VBG pH VBG pCO2 VBG pO2 VBG HCO3 VBG O2 Saturation VBG Base Excess Sodium Potassium Chloride Carbon Dioxide Anion Gap BUN Creatinine Estim Creat Clear Calc Estimated GFR POC Glucose 167 H 172 H 143 H Random Glucose Calcium Phosphorus Magnesium Total Bilirubin AST ALT Alkaline Phosphatase C-Reactive Protein Total Protein Albumin 01/20/21 01/20/21 01/20/21 19:44 21:56 23:49 WBC RBC Hgb Hct MCV MCH MCHC RDW Plt Count MPV Immature Gran % (Auto) Neut % (Auto) Lymph % (Auto) Hendricks % (Auto) Eos % (Auto) Baso % (Auto) Lymph # (Auto) Hendricks # (Auto) Eos # (Auto) Baso # (Auto) Abs Immat Gran (auto) Absolute Neuts (auto) Absolute Nucleated RBC Nucleated RBC % (auto) PT INR APTT D-Dimer VBG pH VBG pCO2 VBG pO2 VBG HCO3 VBG O2 Saturation VBG Base Excess Sodium Potassium Chloride Carbon Dioxide Anion Gap BUN Creatinine Estim Creat Clear Calc Estimated GFR POC Glucose 130 H 125 H 150 H Random Glucose Calcium Phosphorus Magnesium Total Bilirubin AST ALT Alkaline Phosphatase C-Reactive Protein Total Protein Albumin 01/21/21 01/21/21 01/21/21 02:12 04:10 05:22 WBC 7.5 RBC 2.84 L Hgb 7.9 L Hct 25.1 L MCV 88.4 MCH 27.8 MCHC 31.5 RDW 15.3 Plt Count 90 L MPV 13.3 H Immature Gran % (Auto) 0.8 H Neut % (Auto) 86.3 H Lymph % (Auto) 7.2 L Hendricks % (Auto) 5.7 Eos % (Auto) 0.0 Baso % (Auto) 0.0 Lymph # (Auto) 0.5 L Hendricks # (Auto) 0.4 Eos # (Auto) 0.0 Baso # (Auto) 0.0 Abs Immat Gran (auto) 0.06 H Absolute Neuts (auto) 6.5 Absolute Nucleated RBC 0.000 Nucleated RBC % (auto) 0.0 PT INR APTT D-Dimer VBG pH VBG pCO2 VBG pO2 VBG HCO3 VBG O2 Saturation VBG Base Excess Sodium Potassium Chloride Carbon Dioxide Anion Gap BUN Creatinine Estim Creat Clear Calc Estimated GFR POC Glucose 183 H 204 H Random Glucose Calcium Phosphorus Magnesium Total Bilirubin AST ALT Alkaline Phosphatase C-Reactive Protein Total Protein Albumin 01/21/21 01/21/21 01/21/21 05:22 05:22 05:27 WBC RBC Hgb Hct MCV MCH MCHC RDW Plt Count MPV Immature Gran % (Auto) Neut % (Auto) Lymph % (Auto) Hendricks % (Auto) Eos % (Auto) Baso % (Auto) Lymph # (Auto) Hendricks # (Auto) Eos # (Auto) Baso # (Auto) Abs Immat Gran (auto) Absolute Neuts (auto) Absolute Nucleated RBC Nucleated RBC % (auto) PT 11.5 INR 1.0 APTT 24.5 D-Dimer 805 VBG pH 7.35 VBG pCO2 37 VBG pO2 97 VBG HCO3 21 L VBG O2 Saturation 96.0 VBG Base Excess -3.9 Sodium 145 Potassium 4.1 D Chloride 116 H Carbon Dioxide 20 L Anion Gap 13 BUN 62 H Creatinine 2.34 H Estim Creat Clear Calc 56.4 Estimated GFR 30 POC Glucose Random Glucose 212 H Calcium 7.9 L Phosphorus 3.5 Magnesium 2.2 Total Bilirubin 0.6 AST 22 D ALT 30 Alkaline Phosphatase 77 C-Reactive Protein 4.09 H Total Protein 5.2 L Albumin 2.3 L 01/21/21 01/21/21 01/21/21 06:17 08:15 10:12 WBC RBC Hgb Hct MCV MCH MCHC RDW Plt Count MPV Immature Gran % (Auto) Neut % (Auto) Lymph % (Auto) Hendricks % (Auto) Eos % (Auto) Baso % (Auto) Lymph # (Auto) Hendricks # (Auto) Eos # (Auto) Baso # (Auto) Abs Immat Gran (auto) Absolute Neuts (auto) Absolute Nucleated RBC Nucleated RBC % (auto) PT INR APTT D-Dimer VBG pH VBG pCO2 VBG pO2 VBG HCO3 VBG O2 Saturation VBG Base Excess Sodium Potassium Chloride Carbon Dioxide Anion Gap BUN Creatinine Estim Creat Clear Calc Estimated GFR POC Glucose 179 H 143 H 126 H Random Glucose Calcium Phosphorus Magnesium Total Bilirubin AST ALT Alkaline Phosphatase C-Reactive Protein Total Protein Albumin 01/21/21 12:00 WBC RBC Hgb Hct MCV MCH MCHC RDW Plt Count MPV Immature Gran % (Auto) Neut % (Auto) Lymph % (Auto) Hendricks % (Auto) Eos % (Auto) Baso % (Auto) Lymph # (Auto) Hendricks # (Auto) Eos # (Auto) Baso # (Auto) Abs Immat Gran (auto) Absolute Neuts (auto) Absolute Nucleated RBC Nucleated RBC % (auto) PT INR APTT D-Dimer VBG pH VBG pCO2 VBG pO2 VBG HCO3 VBG O2 Saturation VBG Base Excess Sodium Potassium Chloride Carbon Dioxide Anion Gap BUN Creatinine Estim Creat Clear Calc Estimated GFR POC Glucose 145 H Random Glucose Calcium Phosphorus Magnesium Total Bilirubin AST ALT Alkaline Phosphatase C-Reactive Protein Total Protein Albumin Microbiology Microbiology Results: Microbiology 01/19/21 08:06 Sputum - Suctioned Gram Stain - Final 01/19/21 08:06 Sputum - Suctioned Sputum Culture - Final Strep agalactiae (Grp B) 01/15/21 05:54 Blood - Central Line Blood Culture - Final No growth after 5 days. 01/15/21 05:54 Blood - Central Line Blood Culture - Final No growth after 5 days. 01/09/21 21:01 Sputum - Suctioned Gram Stain - Final 01/09/21 21:01 Sputum - Suctioned Sputum Culture - Final 01/07/21 05:25 Blood - Venous Blood Culture - Final No growth after 5 days. 01/07/21 05:18 Blood - Venous Blood Culture - Final No growth after 5 days. Progress Note: A&P Assessment and plan (1) Acute respiratory distress syndrome (ARDS) due to COVID-19 virus: Status: Acute (2) Colitis: Status: Acute (3) Acute respiratory failure with hypoxia: Status: Acute (4) Acute on chronic kidney failure: Status: Acute (5) COVID-19: Status: Acute (6) Respiratory failure: Status: Acute (7) Hepatitis C, chronic: Status: Acute (8) Amputated below knee: Status: Acute (9) Hypertension: Status: Acute (10) Diabetes: Status: Acute (11) Opiate abuse, episodic: Status: Acute (12) COVID-19: Status: Acute (13) GI bleed: Status: Acute (14) Chronic kidney disease (CKD), stage III (moderate): Status: Acute (15) Colonic mass: Status: Acute (16) Asthma exacerbation: Status: Acute (17) Cirrhosis: Status: Acute (18) Acute hypernatremia: Status: Acute Assessment and Plan: so his only intake is now feedings plus free water and he will remain recent dated on assist control overnight with another weaning trial for both the sides sedation and the ventilator tomorrow as we hopefully get closer towards extubation Quality Stroke Does the patient have a stroke diagnosis?: No VTE Prior VTE?: No VTE Risk Level:: Medical - moderate - high VTE Device Contraindication: Treatment Not Indicated VTE Drug Contraindication: N/A - Med Ordered
[2021-01-21 16:58] LABS: Glucose, Whole Blood 131 mg/dL (60-115)
[2021-01-21 16:58] LABS: Glucose, Whole Blood 155 mg/dL (60-115)
[2021-01-21 18:56] LABS: Glucose, Whole Blood 102 mg/dL (60-115)
[2021-01-21] MEDS: propofoL 1,000 MG/100 ML VIAL 19.49 MG IVCONT ×2 (18:57→23:31)
--- NOTE | 2021-01-21 19:38 | PC.NURSE ---
Assumed care at 07:30. Patient had sedation holiday at 10:40, this was maintained until the late afternoon, during which patient followed all commands, and responded to questions by nodding and shaking head, tracked speaker. Patient denied pain this way. Patient was on PSV 20/8 and 45% for at least 3 hours this afternoon; placed back on sedation and AC settings in the evening to rest. Some villegas/clear inline secretions and copious clear/white oral secretions. Tmax 100.0 today, down to 99.5. Patient with sbp over 170, given PRN labetolol x2 today, initially with poor response SBP in 180's; but down now to 150-140's, and MD aware, no new interventions at this time. Patient with large urine outputs 150-250/hour for some hours today. Patient with small villegas loose bms x3 today. Family updated. Patient was educated as to plan of care while alert.
[2021-01-21 19:58] LABS: Glucose, Whole Blood 118 mg/dL (60-115)
[2021-01-22] VITALS (33 sets, daily range): BP systolic 121–180; BP diastolic 69–93; PULSE 94–107; RESP 20–32; TEMP 37.7–38.7; O2SAT 90–99; BMI 35.4
[2021-01-22 00:16] LABS: Glucose, Whole Blood 244 mg/dL (60-115)
[2021-01-22] MEDS: 0.9 % Sodium Chloride Flush 3 ML SYRINGE IVFLUSH ×3 (01:21→17:38)
[2021-01-22 01:43] LABS: Glucose, Whole Blood 263 mg/dL (60-115)
[2021-01-22] MEDS: Insulin Regular/NS 100 UNIT/100 ML PLAST..BAG IVCONT ×2 (02:15→19:23)
[2021-01-22] MEDS: Labetalol HCL 100 MG/20 ML VIAL 10 MG IVPUSH (02:17)
[2021-01-22] MEDS: Heparin Sodium,Porcine 5,000 UNIT/ML VIAL 5000 UNIT SUBCUT (04:06)
[2021-01-22] MEDS: propofoL 1,000 MG/100 ML VIAL 19.49 MG IVCONT (04:07)
[2021-01-22 04:41] LABS: Glucose, Whole Blood 232 mg/dL (60-115)
[2021-01-22 05:11] LABS: VBG Base Excess -2.8 mmol/L; VBG HCO3 20 mmol/L (22-26); VBG pCO2 30 mmHg; VBG pH 7.43 (7.32-7.43); VBG pO2 48 mmHg
[2021-01-22 05:19] LABS: Venous Blood Gas Refer to POC result
[2021-01-22 05:25] LABS: SCAN SMEAR FLAG 1
[2021-01-22 05:27] LABS: Hematocrit 26.1 % (42-52); Hemoglobin 8.2 g/dl (14.0-18.0); Imm Gran Abs Auto 0.06 X10*3/uL (0.00-0.03); Imm Gran Pct Auto 0.8 % (0.0-0.4); Lymphocytes Absolute Auto 0.8 X10*3/uL (1.2-4.9); Lymphocytes Percent Auto 9.6 % (20-40); Mean Corpuscular HGB Conc 31.4 g/dl (31.0-36.0); Mean Corpuscular Hemoglobin 27.3 pg (27.0-33.0); Mean Platelet Volume 12.8 fL (9.4-12.4); Monocytes Absolute Auto 0.6 X10*3/uL (0.1-1.2); Monocytes Percent Auto 7.1 % (2-11); Neutrophils Absolute Auto 6.5 X10*3/uL (2.0-8.3); Neutrophils Percent Auto 82.5 % (45-73); Red Cell Distribution Width 15.2 % (11.0-16.0); White Blood Count 7.9 X10*3/uL (4.8-10.8)
[2021-01-22 05:30] LABS: MANUAL DIFF FLAG NO; PLT ABN DIST 1; Platelet Count 89 X10*3/uL (160-400)
[2021-01-22 05:35] LABS: Prothrombin Time 11.8 SEC (9.9-13.0)
[2021-01-22 05:37] LABS: Partial Thromboplastin Time 25.6 SEC (24.1-38.0)
[2021-01-22 05:38] LABS: D Dimer 852 NG/ML
[2021-01-22 05:48] LABS: Alanine Aminotransferase 23 U/L (0-40); Albumin Level 2.2 g/dL (3.5-5.0); Alkaline Phosphatase 88 U/L (39-117); Anion Gap 13 (12-20); Aspartate Amino Transferase 14 U/L (5-37); Bilirubin Total 0.6 mg/dL (0.0-1.0); Blood Urea Nitrogen 60 mg/dL (9-16); C Reactive Protein 4.81 mg/dL (< or = 0.50); Carbon Dioxide 21 mmol/L (22-29); Chloride 115 mmol/L (96-108); Creatinine Clr Calc Pharmacy 59.2; Estimated Glomerular Filt Rate 32; Glucose Random 255 mg/dL (60-115); Magnesium 2.2 mg/dL (1.6-2.6); Phosphorus 2.9 mg/dL (2.7-4.5); Potassium 3.7 mmol/L (3.3-5.1); Sodium 145 mmol/L (135-145); Total Protein 5.4 g/dL (6.5-8.0)
[2021-01-22 06:17] LABS: Glucose, Whole Blood 213 mg/dL (60-115)
--- NOTE | 2021-01-22 06:40 | PC.NURSE ---
Pt. developed tachypnea and asynchronous breathing pattern. rr 30-40 bpm. sao2 87-89%. restless/thrashing head side to side. does not follow command. extremities flaccid. dr trejo and bryan elias summoned to bedside. plan 1. sedation increased for ventilatory synchrony versed to 4mg/hr and propofol increased to 50mcg/kg/min 2. stat cxr obtained to r/o pneumothorax pressure control mode trialled without success. increase in sedation has allowed for pt to return to previous ac settings with ventilatory harmony. cxr shows no pneumothorax.
[2021-01-22] MEDS: Lactulose 20 GM/30 ML SOLUTION OG-TUBE ×2 (07:42→20:23)
[2021-01-22] MEDS: Sevelamer Carbonate Powder 800 MG POWD.PACK 1600 MG PO ×3 (07:42→17:37)
[2021-01-22] MEDS: Apixaban 2.5 MG TABLET PO (07:44)
[2021-01-22] MEDS: Aspirin 81 MG TAB.CHEW OG-TUBE (07:45)
[2021-01-22] MEDS: Chlorhexidine Gluc Oral Rinse 15 ML MOUTHWASH BUCCAL ×3 (07:48→20:23)
[2021-01-22] MEDS: Linezolid/D5W 600 MG/300 ML PIGGYBACK 300 MG IV ×2 (07:49→17:37)
[2021-01-22] MEDS: Labetalol HCL 100 MG TABLET 300 MG OG-TUBE ×2 (07:49→20:23)
[2021-01-22] MEDS: methylPREDNISolone Sod Succ 125 MG/2 ML VIAL 50 MG IVPUSH ×2 (07:50→17:33)
[2021-01-22] MEDS: Sodium Bicarbonate 650 MG TABLET PO ×4 (07:52→20:23)
[2021-01-22 08:56] LABS: Glucose, Whole Blood 208 mg/dL (60-115)
[2021-01-22 09:59] LABS: Glucose, Whole Blood 216 mg/dL (60-115)
[2021-01-22] MEDS: dexmedeTOMIDidine HCL/NS 400 MCG/100 ML INFUS..BTL 12.5 MCG IVCONT (10:15)
[2021-01-22] MEDS: Midazolam HCl/PF 2 MG/2 ML VIAL 5 MG IVPUSH (10:15)
[2021-01-22 10:38] LABS: VBG Base Excess -3.8 mmol/L; VBG HCO3 17 mmol/L (22-26); VBG pCO2 23 mmHg; VBG pH 7.49 (7.32-7.43); VBG pO2 61 mmHg
--- NOTE | 2021-01-22 11:21 | PM.CCPN ---
Subjective Subjective Date of Service: 01/22/21 Interval History: 45-year-old insulin-dependent diabetic and hypertensive and hyperlipidemic with peripheral vasculopathy and bilateral BKA as well as nephropathy consistent with chronic stage III renal failure who received J and J and inoculation in October and developed COVID-19 pneumonitis with ARDS and acute hypoxic respiratory failure despite and is now close to 2 weeks on the ventilator and looked like he was weaning down to an FiO2 of 40% with minutes ventilatory requirements of 10 L and he suddenly became very tachypneic hyperventilating and this was during a sedation holiday this morning and there was a drop in his end-tidal CO2 which was altogether with especially with his increase of minute ventilatory needs to 20 L potentially indicative of pulmonary embolism but he also grew a pure culture of strep agalactiae therefore concerning for a ventilator associated bacterial pneumonia and with his multiple allergies I started him on linezolid obtain 2 more sets of blood cultures and turned off the propofol for fear in that it might be causing difficulty with metabolic acidosis which was not the case in retrospect but he is now sedated with the Versed and dexmedetomidine and respiratory rates at least a down comfortably from 45-35 Critical Care Time (minutes): 45 Physical Exam Vital Signs: Vital Signs: Last Vital Signs Temp 101.5 F H 01/22/21 11:00 Pulse 102 H 01/22/21 11:00 Resp 32 H 01/22/21 11:00 BP 162/84 H 01/22/21 11:00 Pulse Ox 92 01/22/21 11:00 Oxygen Flow Rate 100 01/07/21 05:11 Body Mass Index 35.4 Const: Other: he open his eyes without making eye contact and had a response to command but the but much more weekly so a little bit of coolness to his peripheral extremities but good bilateral carotid upstrokes no gallops no neck vein distension CVP when quiet and balanced at about 5-6 and that is relatively unchanged remaining in sinus tachycardia and BUN and creatinine actually have decreased to the lowest levels of 60/2.2 metabolically comfortable no change in white count or left shift but progressively worsening thrombocytopenia for which I stop the heparin and obtain the heparin induced platelet antibody Objective Data Labs CBC & Chem 7: 01/22/21 05:00 01/22/21 05:00 Labs: Laboratory Results - last 24 hr 01/21/21 01/21/21 01/21/21 12:00 14:07 16:18 WBC RBC Hgb Hct MCV MCH MCHC RDW Plt Count MPV Immature Gran % (Auto) Neut % (Auto) Lymph % (Auto) Carbon % (Auto) Eos % (Auto) Baso % (Auto) Lymph # (Auto) Carbon # (Auto) Eos # (Auto) Baso # (Auto) Abs Immat Gran (auto) Absolute Neuts (auto) Absolute Nucleated RBC Nucleated RBC % (auto) PT INR APTT D-Dimer VBG pH VBG pCO2 VBG pO2 VBG HCO3 VBG O2 Saturation VBG Base Excess Sodium Potassium Chloride Carbon Dioxide Anion Gap BUN Creatinine Estim Creat Clear Calc Estimated GFR POC Glucose 145 H 155 H 131 H Random Glucose Calcium Phosphorus Magnesium Total Bilirubin AST ALT Alkaline Phosphatase C-Reactive Protein Total Protein Albumin 01/21/21 01/21/21 01/21/21 18:24 19:39 23:35 WBC RBC Hgb Hct MCV MCH MCHC RDW Plt Count MPV Immature Gran % (Auto) Neut % (Auto) Lymph % (Auto) Carbon % (Auto) Eos % (Auto) Baso % (Auto) Lymph # (Auto) Carbon # (Auto) Eos # (Auto) Baso # (Auto) Abs Immat Gran (auto) Absolute Neuts (auto) Absolute Nucleated RBC Nucleated RBC % (auto) PT INR APTT D-Dimer VBG pH VBG pCO2 VBG pO2 VBG HCO3 VBG O2 Saturation VBG Base Excess Sodium Potassium Chloride Carbon Dioxide Anion Gap BUN Creatinine Estim Creat Clear Calc Estimated GFR POC Glucose 102 118 H 244 H Random Glucose Calcium Phosphorus Magnesium Total Bilirubin AST ALT Alkaline Phosphatase C-Reactive Protein Total Protein Albumin 01/22/21 01/22/21 01/22/21 01:38 04:15 05:00 WBC 7.9 RBC 3.00 L Hgb 8.2 L Hct 26.1 L MCV 87.0 MCH 27.3 MCHC 31.4 RDW 15.2 Plt Count 89 L MPV 12.8 H Immature Gran % (Auto) 0.8 H Neut % (Auto) 82.5 H Lymph % (Auto) 9.6 L Carbon % (Auto) 7.1 Eos % (Auto) 0.0 Baso % (Auto) 0.0 Lymph # (Auto) 0.8 L Carbon # (Auto) 0.6 Eos # (Auto) 0.0 Baso # (Auto) 0.0 Abs Immat Gran (auto) 0.06 H Absolute Neuts (auto) 6.5 Absolute Nucleated RBC 0.000 Nucleated RBC % (auto) 0.0 PT INR APTT D-Dimer VBG pH VBG pCO2 VBG pO2 VBG HCO3 VBG O2 Saturation VBG Base Excess Sodium Potassium Chloride Carbon Dioxide Anion Gap BUN Creatinine Estim Creat Clear Calc Estimated GFR POC Glucose 263 H 232 H Random Glucose Calcium Phosphorus Magnesium Total Bilirubin AST ALT Alkaline Phosphatase C-Reactive Protein Total Protein Albumin 01/22/21 01/22/21 01/22/21 05:00 05:00 05:04 WBC RBC Hgb Hct MCV MCH MCHC RDW Plt Count MPV Immature Gran % (Auto) Neut % (Auto) Lymph % (Auto) Carbon % (Auto) Eos % (Auto) Baso % (Auto) Lymph # (Auto) Carbon # (Auto) Eos # (Auto) Baso # (Auto) Abs Immat Gran (auto) Absolute Neuts (auto) Absolute Nucleated RBC Nucleated RBC % (auto) PT 11.8 INR 1.0 APTT 25.6 D-Dimer 852 VBG pH 7.43 VBG pCO2 30 VBG pO2 48 VBG HCO3 20 L VBG O2 Saturation 77.0 VBG Base Excess -2.8 Sodium 145 Potassium 3.7 Chloride 115 H Carbon Dioxide 21 L Anion Gap 13 BUN 60 H Creatinine 2.23 H Estim Creat Clear Calc 59.2 Estimated GFR 32 POC Glucose Random Glucose 255 H Calcium 8.0 L Phosphorus 2.9 Magnesium 2.2 Total Bilirubin 0.6 AST 14 ALT 23 Alkaline Phosphatase 88 C-Reactive Protein 4.81 H Total Protein 5.4 L Albumin 2.2 L 01/22/21 01/22/21 01/22/21 06:06 07:59 09:55 WBC RBC Hgb Hct MCV MCH MCHC RDW Plt Count MPV Immature Gran % (Auto) Neut % (Auto) Lymph % (Auto) Carbon % (Auto) Eos % (Auto) Baso % (Auto) Lymph # (Auto) Carbon # (Auto) Eos # (Auto) Baso # (Auto) Abs Immat Gran (auto) Absolute Neuts (auto) Absolute Nucleated RBC Nucleated RBC % (auto) PT INR APTT D-Dimer VBG pH VBG pCO2 VBG pO2 VBG HCO3 VBG O2 Saturation VBG Base Excess Sodium Potassium Chloride Carbon Dioxide Anion Gap BUN Creatinine Estim Creat Clear Calc Estimated GFR POC Glucose 213 H 208 H 216 H Random Glucose Calcium Phosphorus Magnesium Total Bilirubin AST ALT Alkaline Phosphatase C-Reactive Protein Total Protein Albumin 01/22/21 10:30 WBC RBC Hgb Hct MCV MCH MCHC RDW Plt Count MPV Immature Gran % (Auto) Neut % (Auto) Lymph % (Auto) Carbon % (Auto) Eos % (Auto) Baso % (Auto) Lymph # (Auto) Carbon # (Auto) Eos # (Auto) Baso # (Auto) Abs Immat Gran (auto) Absolute Neuts (auto) Absolute Nucleated RBC Nucleated RBC % (auto) PT INR APTT D-Dimer VBG pH 7.49 H VBG pCO2 23 VBG pO2 61 VBG HCO3 17 L VBG O2 Saturation 89.0 VBG Base Excess -3.8 Sodium Potassium Chloride Carbon Dioxide Anion Gap BUN Creatinine Estim Creat Clear Calc Estimated GFR POC Glucose Random Glucose Calcium Phosphorus Magnesium Total Bilirubin AST ALT Alkaline Phosphatase C-Reactive Protein Total Protein Albumin Microbiology Microbiology Results: Microbiology 01/19/21 08:06 Sputum - Suctioned Gram Stain - Final 01/19/21 08:06 Sputum - Suctioned Sputum Culture - Final Strep agalactiae (Grp B) 01/15/21 05:54 Blood - Central Line Blood Culture - Final No growth after 5 days. 01/15/21 05:54 Blood - Central Line Blood Culture - Final No growth after 5 days. 01/09/21 21:01 Sputum - Suctioned Gram Stain - Final 01/09/21 21:01 Sputum - Suctioned Sputum Culture - Final 01/07/21 05:25 Blood - Venous Blood Culture - Final No growth after 5 days. 01/07/21 05:18 Blood - Venous Blood Culture - Final No growth after 5 days. Progress Note: A&P Assessment and plan (1) Ventilator-associated bacterial pneumonia: Status: Acute (2) Acute hypernatremia: Status: Acute (3) Thrombocytopenia associated with COVID-19: Status: Acute (4) Acute respiratory distress syndrome (ARDS) due to COVID-19 virus: Status: Acute (5) Colitis: Status: Acute (6) Acute on chronic kidney failure: Status: Acute (7) Acute respiratory failure with hypoxia: Status: Acute (8) COVID-19: Status: Acute (9) Respiratory failure: Status: Acute (10) Hepatitis C, chronic: Status: Acute (11) Cirrhosis: Status: Acute (12) Asthma exacerbation: Status: Acute (13) Colonic mass: Status: Acute (14) Chronic kidney disease (CKD), stage III (moderate): Status: Acute (15) GI bleed: Status: Acute (16) COVID-19: Status: Acute (17) Opiate abuse, episodic: Status: Acute (18) Hypertension: Status: Acute (19) Diabetes: Status: Acute (20) Amputated below knee: Status: Acute Assessment and Plan: 45-year-old now with possible ventilator associated pneumonia but with the drop in pCO2 the increase in minutes ventilatory requirements so abruptly and the progressive thrombocytopenia which could represent and now another source of the thrombotic risk as well as the underlying COVID-19 I decided to cover him with argatroban following PTTs and put him back on assist control stopping propofol sedating him with dexmedetomidine and midazolam and the only antibiotic category that he is potentially responsive to is the linezolid Quality Stroke Does the patient have a stroke diagnosis?: No VTE Prior VTE?: No VTE Risk Level:: Medical - moderate - high VTE Device Contraindication: Treatment Not Indicated VTE Drug Contraindication: N/A - Med Ordered
[2021-01-22] MEDS: Argatroban 250 MG in 0.9 % Sodium Chloride 250 ML 15.15 MG IV (11:27)
[2021-01-22 11:59] LABS: Glucose, Whole Blood 223 mg/dL (60-115)
[2021-01-22] MEDS: propofoL 200 MG/20 ML VIAL 40 MG IVPUSH (12:34)
[2021-01-22 12:43] LABS: Venous Blood Gas Refer to POC result
[2021-01-22 13:34] LABS: Partial Thromboplastin Time 28.6 SEC (24.1-38.0)
[2021-01-22 14:09] LABS: Glucose, Whole Blood 162 mg/dL (60-115)
--- NOTE | 2021-01-22 14:44 | PC.NURSE ---
argatroban titrated from 2 to 3 per md and also followup ptt ordered at 17:00 per MD with slight variation from protocol as patient needs time to acclimated
[2021-01-22 16:16] LABS: Glucose, Whole Blood 161 mg/dL (60-115)
[2021-01-22] MEDS: propofoL 1,000 MG/100 ML VIAL 11.25 MG IVCONT (17:32)
[2021-01-22] MEDS: Midazolam HCl/NS 50 MG/50 ML PLAST..BAG IVCONT (17:33)
[2021-01-22 17:53] LABS: Glucose, Whole Blood 169 mg/dL (60-115)
[2021-01-22 18:18] LABS: Partial Thromboplastin Time 86.9 SEC (24.1-38.0)
[2021-01-22] MEDS: fentaNYL 100 MCG PATCH.TD72 TRANSDERMA (18:19)
--- NOTE | 2021-01-22 19:21 | PC.NURSE ---
Assumed care at 07:00. Patient was given sedation holiday immediatly, and this was poorly tolerated, but patient did awaken enough to weakly shake head no and nod yes as well as to talent associate hands with left hand taking longer and more stimulation to squeeze and with less consistent following of instructions; and with tachypnea in the 45-48 rpm; ventilator dysynchrony on his AC settings, MD notified and RT in to place patient on PSV 20/8 45%, this was not well tolerated; patient was having tachypea RR around 45; RT increased pressure support to 22, momentary lowering of RR to 35-38, but then increased and Patient was re-sedated and AC settings re-initiated; patient continues now on AC/VC settings #7.5 ETT is 27 cm at the lip; Rt 20; TV 600; FiO2 40%; Peep 8; minute volumes around 12-16; SpO2 89-90% on PSV, then 90-95% on AC settings. New sedation orders for precedex and versed; this was soon found to be ineffective, with maximal precedex 1.5 totally ineffective and patient in distress breathing; thrashing head back and forth and inconsolable/non-redirectable; Versed turned up to 10 to attempt to calm patient while awaiting orders, MD notified and new order to restart Propofol and give bolus 40 mg propofol; and this was done with good effect. Patient also started on agatroban per MD related to a question of risk of PE surrounding risk factors and ?why patient is having higher levels of dyspnea; titrated per MD, increasing the dose from 2 to 3 instead of by 20%; and PTT was also taken at 2.5 hours as opposed to 2 hours per protocol per MD; also the 1700 ptt was taken off the central line after one failed attempt by phlebotomy per MD tiarra. Patient does have a ?plueral rub on the right upper lobe that MD is aware of to auscultation, also has scattered coarse crackles in the right upper lobe. Patient with sinus rhythm with known ST-depression on monitor; SBP was mostly 130-160 today with occasional elevated in 170's appeared to be positional. Patient with no BM today; TF well tolerated. urine outputs about 60 cc/hour and yellow. Skin in good condition still; mostly tolerated repositioning well. CVP around 5-6.
[2021-01-22 20:15] LABS: Glucose, Whole Blood 217 mg/dL (60-115)
[2021-01-22 21:09] LABS: Partial Thromboplastin Time 94.7 SEC (24.1-38.0)
[2021-01-22 22:28] LABS: Glucose, Whole Blood 205 mg/dL (60-115)
[2021-01-22] MEDS: Argatroban 250 MG in 0.9 % Sodium Chloride 250 ML 11.36 MG IV (22:57)
[2021-01-23] VITALS (30 sets, daily range): BP systolic 107–175; BP diastolic 52–82; PULSE 86–102; RESP 16–38; TEMP 37.1–37.9; O2SAT 87–96; BMI 35.6
[2021-01-23] MEDS: propofoL 1,000 MG/100 ML VIAL 15 MG IVCONT ×5 (00:04→20:09)
[2021-01-23 00:29] LABS: Partial Thromboplastin Time 82.3 SEC (24.1-38.0)
[2021-01-23 01:36] LABS: Glucose, Whole Blood 194 mg/dL (60-115)
[2021-01-23 02:08] LABS: Partial Thromboplastin Time 69.6 SEC (24.1-38.0)
[2021-01-23 02:30] LABS: Glucose, Whole Blood 177 mg/dL (60-115)
[2021-01-23] MEDS: Linezolid/D5W 600 MG/300 ML PIGGYBACK 300 MG IV (05:14)
[2021-01-23 05:31] LABS: VBG Base Excess -2.5 mmol/L; VBG HCO3 20 mmol/L (22-26); VBG pCO2 27 mmHg; VBG pH 7.47 (7.32-7.43); VBG pO2 39 mmHg
[2021-01-23 05:40] LABS: Venous Blood Gas Refer to POC result
[2021-01-23 05:44] LABS: Eosinophils Percent Auto 0.3 % (0-4); Hemoglobin 7.8 g/dl (14.0-18.0); MANUAL DIFF FLAG SCAN; Mean Corpuscular Hemoglobin 27.5 pg (27.0-33.0); Neutrophils Percent Auto 76.7 % (45-73); Red Blood Count 2.84 X10*6/uL (4.60-5.80); Red Cell Distribution Width 15.2 % (11.0-16.0); SCAN SMEAR FLAG 1
[2021-01-23 05:46] LABS: Hematocrit 24.8 % (42-52); Imm Gran Abs Auto 0.07 X10*3/uL (0.00-0.03); Imm Gran Pct Auto 1.1 % (0.0-0.4); Lymphocytes Absolute Auto 1.1 X10*3/uL (1.2-4.9); Lymphocytes Percent Auto 16.3 % (20-40); Mean Corpuscular HGB Conc 31.5 g/dl (31.0-36.0); Mean Corpuscular Volume 87.3 fL (80-98); Monocytes Absolute Auto 0.4 X10*3/uL (0.1-1.2); Monocytes Percent Auto 5.6 % (2-11); Neutrophils Absolute Auto 4.9 X10*3/uL (2.0-8.3); White Blood Count 6.4 X10*3/uL (4.8-10.8)
[2021-01-23 05:50] LABS: Platelet Count 76 X10*3/uL (160-400)
[2021-01-23 05:51] LABS: PLT ABN DIST 1
[2021-01-23 05:52] LABS: INTERNATIONAL NORM RATIO 2.7 (0.9-1.1); Prothrombin Time 31.9 SEC (9.9-13.0)
[2021-01-23 05:54] LABS: D Dimer 683 NG/ML
[2021-01-23 05:56] LABS: Partial Thromboplastin Time 69.1 SEC (24.1-38.0)
[2021-01-23] MEDS: methylPREDNISolone Sod Succ 125 MG/2 ML VIAL 50 MG IVPUSH ×2 (06:03→08:30)
[2021-01-23 06:06] LABS: SLIDE REVIEW VERIFIED
[2021-01-23 06:30] LABS: Glucose, Whole Blood 126 mg/dL (60-115)
[2021-01-23 06:30] LABS: Glucose, Whole Blood 125 mg/dL (60-115)
[2021-01-23 06:34] LABS: Alanine Aminotransferase 22 U/L (0-40); Alkaline Phosphatase 84 U/L (39-117); Anion Gap 13 (12-20); Aspartate Amino Transferase 16 U/L (5-37); Bilirubin Total 0.6 mg/dL (0.0-1.0); Blood Urea Nitrogen 58 mg/dL (9-16); C Reactive Protein 7.01 mg/dL (< or = 0.50); Calcium 7.8 mg/dL (8.4-10.2); Carbon Dioxide 21 mmol/L (22-29); Chloride 118 mmol/L (96-108); Creatinine Clr Calc Pharmacy 57.7; Estimated Glomerular Filt Rate 31; Glucose Random 125 mg/dL (60-115); Magnesium 2.3 mg/dL (1.6-2.6); Phosphorus 2.7 mg/dL (2.7-4.5); Potassium 3.5 mmol/L (3.3-5.1); Sodium 148 mmol/L (135-145); Total Protein 5.1 g/dL (6.5-8.0)
--- NOTE | 2021-01-23 07:25 | P.PNNP_ITS ---
Subjective Subjective Date of Service: 01/23/21 Interval history: 45-year-old insulin-dependent diabetic and hypertensive and hyperlipidemic with peripheral vasculopathy and bilateral BKA as well as nephropathy consistent with chronic stage III renal failure who received J and J and inoculation in October and developed COVID-19 pneumonitis with ARDS and acute hypoxic respiratory failure despite and is now close to 2 weeks on the ventilator Physical Exam Vital Signs: Vital Signs: Last Vital Signs Temp 99.1 F 01/23/21 07:00 Pulse 86 01/23/21 07:00 Resp 20 01/23/21 07:00 BP 142/71 H 01/23/21 07:00 Pulse Ox 90 L 01/23/21 07:00 Oxygen Flow Rate 100 01/07/21 05:11 Body Mass Index 35.6 Const: General: no acute distress, alert, awake and anxious Nutritional Appearance: obese Eyes: Sclerae: sclerae normal EOM: EOMs intact bilaterally Neck: Neck: Yes no lymphadenopathy, Yes trachea midline and Yes supple Resp: Effort & Inspection: normal respiratory effort and no respiratory distress ( On high-flow nasal cannula and non-rebreather) Auscultation: crackles ( diffuse bilateral) and rhonchi Cardio: Rate: regular rate and tachycardic Rhythm: regular rhythm Heart sounds: no gallops, no murmurs and no rubs GI: Inspection: Yes normal to inspection Palpation (GI): Soft to palpation and Other GI palpation findings present ( Nontender) Auscultation: normal bowel sounds Extrem: General: No clubbing, No cyanosis and Yes other ( bilateral BKA) Objective Data Labs CBC & Chem 7: 01/23/21 05:16 01/23/21 05:16 Labs: Laboratory Results - last 24 hr 01/22/21 01/22/21 01/22/21 07:59 09:55 10:30 WBC RBC Hgb Hct MCV MCH MCHC RDW Plt Count MPV Immature Gran % (Auto) Neut % (Auto) Lymph % (Auto) [place] % (Auto) Eos % (Auto) Baso % (Auto) Lymph # (Auto) [place] # (Auto) Eos # (Auto) Baso # (Auto) Abs Immat Gran (auto) Absolute Neuts (auto) Absolute Nucleated RBC Nucleated RBC % (auto) Smear Tech's Comments PT INR APTT D-Dimer VBG pH 7.49 H VBG pCO2 23 VBG pO2 61 VBG HCO3 17 L VBG O2 Saturation 89.0 VBG Base Excess -3.8 Sodium Potassium Chloride Carbon Dioxide Anion Gap BUN Creatinine Estim Creat Clear Calc Estimated GFR POC Glucose 208 H 216 H Random Glucose Calcium Phosphorus Magnesium Total Bilirubin AST ALT Alkaline Phosphatase C-Reactive Protein Total Protein Albumin 01/22/21 01/22/21 01/22/21 11:44 13:14 14:04 WBC RBC Hgb Hct MCV MCH MCHC RDW Plt Count MPV Immature Gran % (Auto) Neut % (Auto) Lymph % (Auto) [place] % (Auto) Eos % (Auto) Baso % (Auto) Lymph # (Auto) [place] # (Auto) Eos # (Auto) Baso # (Auto) Abs Immat Gran (auto) Absolute Neuts (auto) Absolute Nucleated RBC Nucleated RBC % (auto) Smear Tech's Comments PT INR APTT 28.6 D-Dimer VBG pH VBG pCO2 VBG pO2 VBG HCO3 VBG O2 Saturation VBG Base Excess Sodium Potassium Chloride Carbon Dioxide Anion Gap BUN Creatinine Estim Creat Clear Calc Estimated GFR POC Glucose 223 H 162 H Random Glucose Calcium Phosphorus Magnesium Total Bilirubin AST ALT Alkaline Phosphatase C-Reactive Protein Total Protein Albumin 01/22/21 01/22/21 01/22/21 16:04 17:09 17:30 WBC RBC Hgb Hct MCV MCH MCHC RDW Plt Count MPV Immature Gran % (Auto) Neut % (Auto) Lymph % (Auto) [place] % (Auto) Eos % (Auto) Baso % (Auto) Lymph # (Auto) [place] # (Auto) Eos # (Auto) Baso # (Auto) Abs Immat Gran (auto) Absolute Neuts (auto) Absolute Nucleated RBC Nucleated RBC % (auto) Smear Tech's Comments PT INR APTT 86.9 H* D D-Dimer VBG pH VBG pCO2 VBG pO2 VBG HCO3 VBG O2 Saturation VBG Base Excess Sodium Potassium Chloride Carbon Dioxide Anion Gap BUN Creatinine Estim Creat Clear Calc Estimated GFR POC Glucose 161 H 169 H Random Glucose Calcium Phosphorus Magnesium Total Bilirubin AST ALT Alkaline Phosphatase C-Reactive Protein Total Protein Albumin 01/22/21 01/22/21 01/22/21 20:00 20:27 22:08 WBC RBC Hgb Hct MCV MCH MCHC RDW Plt Count MPV Immature Gran % (Auto) Neut % (Auto) Lymph % (Auto) [place] % (Auto) Eos % (Auto) Baso % (Auto) Lymph # (Auto) [place] # (Auto) Eos # (Auto) Baso # (Auto) Abs Immat Gran (auto) Absolute Neuts (auto) Absolute Nucleated RBC Nucleated RBC % (auto) Smear Tech's Comments PT INR APTT 94.7 H* D-Dimer VBG pH VBG pCO2 VBG pO2 VBG HCO3 VBG O2 Saturation VBG Base Excess Sodium Potassium Chloride Carbon Dioxide Anion Gap BUN Creatinine Estim Creat Clear Calc Estimated GFR POC Glucose 217 H 205 H Random Glucose Calcium Phosphorus Magnesium Total Bilirubin AST ALT Alkaline Phosphatase C-Reactive Protein Total Protein Albumin 01/23/21 01/23/21 01/23/21 00:10 00:12 01:50 WBC RBC Hgb Hct MCV MCH MCHC RDW Plt Count MPV Immature Gran % (Auto) Neut % (Auto) Lymph % (Auto) [place] % (Auto) Eos % (Auto) Baso % (Auto) Lymph # (Auto) [place] # (Auto) Eos # (Auto) Baso # (Auto) Abs Immat Gran (auto) Absolute Neuts (auto) Absolute Nucleated RBC Nucleated RBC % (auto) Smear Tech's Comments PT INR APTT 82.3 H* 69.6 H* D-Dimer VBG pH VBG pCO2 VBG pO2 VBG HCO3 VBG O2 Saturation VBG Base Excess Sodium Potassium Chloride Carbon Dioxide Anion Gap BUN Creatinine Estim Creat Clear Calc Estimated GFR POC Glucose 194 H Random Glucose Calcium Phosphorus Magnesium Total Bilirubin AST ALT Alkaline Phosphatase C-Reactive Protein Total Protein Albumin 01/23/21 01/23/21 01/23/21 01:51 04:11 05:16 WBC 6.4 RBC 2.84 L Hgb 7.8 L Hct 24.8 L MCV 87.3 MCH 27.5 MCHC 31.5 RDW 15.2 Plt Count 76 L MPV Not Reportable Immature Gran % (Auto) 1.1 H Neut % (Auto) 76.7 H Lymph % (Auto) 16.3 L [place] % (Auto) 5.6 Eos % (Auto) 0.3 Baso % (Auto) 0.0 Lymph # (Auto) 1.1 L [place] # (Auto) 0.4 Eos # (Auto) 0.0 Baso # (Auto) 0.0 Abs Immat Gran (auto) 0.07 H Absolute Neuts (auto) 4.9 Absolute Nucleated RBC 0.000 Nucleated RBC % (auto) 0.0 Smear Tech's Comments VERIFIED PT INR APTT D-Dimer VBG pH VBG pCO2 VBG pO2 VBG HCO3 VBG O2 Saturation VBG Base Excess Sodium Potassium Chloride Carbon Dioxide Anion Gap BUN Creatinine Estim Creat Clear Calc Estimated GFR POC Glucose 177 H 125 H Random Glucose Calcium Phosphorus Magnesium Total Bilirubin AST ALT Alkaline Phosphatase C-Reactive Protein Total Protein Albumin 01/23/21 01/23/21 01/23/21 05:16 05:16 05:23 WBC RBC Hgb Hct MCV MCH MCHC RDW Plt Count MPV Immature Gran % (Auto) Neut % (Auto) Lymph % (Auto) [place] % (Auto) Eos % (Auto) Baso % (Auto) Lymph # (Auto) [place] # (Auto) Eos # (Auto) Baso # (Auto) Abs Immat Gran (auto) Absolute Neuts (auto) Absolute Nucleated RBC Nucleated RBC % (auto) Smear Tech's Comments PT 31.9 H D INR 2.7 H APTT 69.1 H* D-Dimer 683 VBG pH 7.47 H VBG pCO2 27 VBG pO2 39 VBG HCO3 20 L VBG O2 Saturation 63.0 VBG Base Excess -2.5 Sodium 148 H Potassium 3.5 Chloride 118 H Carbon Dioxide 21 L Anion Gap 13 BUN 58 H Creatinine 2.28 H Estim Creat Clear Calc 57.7 Estimated GFR 31 POC Glucose Random Glucose 125 H D Calcium 7.8 L Phosphorus 2.7 Magnesium 2.3 Total Bilirubin 0.6 AST 16 ALT 22 Alkaline Phosphatase 84 C-Reactive Protein 7.01 H Total Protein 5.1 L Albumin 2.0 L 01/23/21 05:37 WBC RBC Hgb Hct MCV MCH MCHC RDW Plt Count MPV Immature Gran % (Auto) Neut % (Auto) Lymph % (Auto) [place] % (Auto) Eos % (Auto) Baso % (Auto) Lymph # (Auto) [place] # (Auto) Eos # (Auto) Baso # (Auto) Abs Immat Gran (auto) Absolute Neuts (auto) Absolute Nucleated RBC Nucleated RBC % (auto) Smear Tech's Comments PT INR APTT D-Dimer VBG pH VBG pCO2 VBG pO2 VBG HCO3 VBG O2 Saturation VBG Base Excess Sodium Potassium Chloride Carbon Dioxide Anion Gap BUN Creatinine Estim Creat Clear Calc Estimated GFR POC Glucose 126 H Random Glucose Calcium Phosphorus Magnesium Total Bilirubin AST ALT Alkaline Phosphatase C-Reactive Protein Total Protein Albumin Microbiology Microbiology Results: Microbiology 01/19/21 08:06 Sputum - Suctioned Gram Stain - Final 01/19/21 08:06 Sputum - Suctioned Sputum Culture - Final Strep agalactiae (Grp B) 01/15/21 05:54 Blood - Central Line Blood Culture - Final No growth after 5 days. 01/15/21 05:54 Blood - Central Line Blood Culture - Final No growth after 5 days. 01/09/21 21:01 Sputum - Suctioned Gram Stain - Final 01/09/21 21:01 Sputum - Suctioned Sputum Culture - Final 01/07/21 05:25 Blood - Venous Blood Culture - Final No growth after 5 days. 01/07/21 05:18 Blood - Venous Blood Culture - Final No growth after 5 days. Assessment & Plan Assessment and plan (1) Ventilator-associated bacterial pneumonia: Status: Acute (2) Acute hypernatremia: Status: Acute (3) Thrombocytopenia associated with COVID-19: Status: Acute (4) Acute respiratory distress syndrome (ARDS) due to COVID-19 virus: Status: Acute (5) Colitis: Status: Acute (6) Acute on chronic kidney failure: Status: Acute (7) Acute respiratory failure with hypoxia: Status: Acute (8) COVID-19: Status: Acute (9) Respiratory failure: Status: Acute (10) Hepatitis C, chronic: Status: Acute (11) Cirrhosis: Status: Acute (12) Asthma exacerbation: Status: Acute (13) Colonic mass: Status: Acute (14) Chronic kidney disease (CKD), stage III (moderate): Status: Acute (15) GI bleed: Status: Acute (16) Opiate abuse, episodic: Status: Acute (17) Hypertension: Status: Acute (18) Diabetes: Status: Acute (19) Amputated below knee: Status: Acute Assessment and Plan: stable CKD and lytes Time Spent With Patient Time: Total time spent is greater than 50% in coordination of care (as documented) at patient's floor/unit and/or counseling patient: Procedures Date of Service Date of Service: 01/23/21 Progress Note: Quality Stroke Does the patient have a stroke diagnosis?: No
[2021-01-23] MEDS: Lactulose 20 GM/30 ML SOLUTION OG-TUBE ×2 (07:36→20:11)
[2021-01-23] MEDS: Chlorhexidine Gluc Oral Rinse 15 ML MOUTHWASH BUCCAL ×3 (07:36→20:10)
[2021-01-23] MEDS: Sevelamer Carbonate Powder 800 MG POWD.PACK 1600 MG PO ×3 (07:36→16:03)
[2021-01-23] MEDS: Labetalol HCL 100 MG TABLET 300 MG OG-TUBE ×2 (07:36→20:10)
[2021-01-23] MEDS: 0.9 % Sodium Chloride Flush 3 ML SYRINGE IVFLUSH ×2 (07:36→14:07)
[2021-01-23] MEDS: Sodium Bicarbonate 650 MG TABLET PO ×4 (07:37→20:10)
[2021-01-23] MEDS: Aspirin 81 MG TAB.CHEW OG-TUBE (07:37)
[2021-01-23 07:59] LABS: Glucose, Whole Blood 142 mg/dL (60-115)
[2021-01-23] MEDS: cloNIDine 0.1 MG PATCH.TDWK TRANSDERMA (08:52)
--- NOTE | 2021-01-23 09:08 | PM.CCPN ---
Subjective Subjective Date of Service: 01/23/21 Interval History: 45-year-old gentleman with underlying diabetes mellitus, CKD stage 3, peripheral vascular disease status post bilateral BKA, CVA on dual antiplatelet therapy, hep C cirrhosis, asthma, COVID-19 positive on 01/01/2021, recently hospitalized at [facility] on 01/01/2021 through 01/04/2021 for lower GI bleed, cirrhosis, COVID-19. Patient has had CT chest demonstrated colonic thickening versus mass, however endoscopy/colonoscopy were deferred for 2 weeks for resolution of his COVID symptoms, CT abdomen pelvis from this admission did not redemonstrate any mass or colitis. He has been admitted on 01/07/2021 with progressive hypoxemia requiring high-flow nasal cannula, acute on chronic kidney injury, hyperglycemia, and significant metabolic acidosis. His CT abdomen pelvis was negative colitis or mass. Secondary to refractory hypoxemia patient required intubation on 01/08/2021. No events overnight. FiO2 requirements slowly improving. Critical Care Time (minutes): 60 Physical Exam Vital Signs: Vital Signs: Last Vital Signs Temp 99.3 F 01/23/21 09:00 Pulse 94 01/23/21 09:00 Resp 16 01/23/21 09:00 BP 139/77 01/23/21 09:00 Pulse Ox 87 L 01/23/21 09:00 Oxygen Flow Rate 100 01/07/21 05:11 Body Mass Index 35.6 Const: General: no acute distress, alert and awake Eyes: Sclerae: sclerae normal EOM: EOMs intact bilaterally Neck: Neck: Yes no lymphadenopathy, Yes trachea midline and Yes supple Resp: Effort & Inspection: normal respiratory effort and no respiratory distress Auscultation: clear to auscultation bilaterally Cardio: Rate: regular rate Rhythm: regular rhythm Heart sounds: no gallops, no murmurs and no rubs GI: Palpation (GI): Soft to palpation and Other GI palpation findings present ( Nontender) Auscultation: normal bowel sounds Extrem: General: No clubbing, No cyanosis and Yes other (Bilateral BKA) Objective Data Labs CBC & Chem 7: 01/23/21 05:16 01/23/21 05:16 Labs: Laboratory Results - last 24 hr 01/22/21 01/22/21 01/22/21 09:55 10:30 11:44 WBC RBC Hgb Hct MCV MCH MCHC RDW Plt Count MPV Immature Gran % (Auto) Neut % (Auto) Lymph % (Auto) [place] % (Auto) Eos % (Auto) Baso % (Auto) Lymph # (Auto) [place] # (Auto) Eos # (Auto) Baso # (Auto) Abs Immat Gran (auto) Absolute Neuts (auto) Absolute Nucleated RBC Nucleated RBC % (auto) Smear Tech's Comments PT INR APTT D-Dimer VBG pH 7.49 H VBG pCO2 23 VBG pO2 61 VBG HCO3 17 L VBG O2 Saturation 89.0 VBG Base Excess -3.8 Sodium Potassium Chloride Carbon Dioxide Anion Gap BUN Creatinine Estim Creat Clear Calc Estimated GFR POC Glucose 216 H 223 H Random Glucose Calcium Phosphorus Magnesium Total Bilirubin AST ALT Alkaline Phosphatase C-Reactive Protein Total Protein Albumin 01/22/21 01/22/21 01/22/21 13:14 14:04 16:04 WBC RBC Hgb Hct MCV MCH MCHC RDW Plt Count MPV Immature Gran % (Auto) Neut % (Auto) Lymph % (Auto) [place] % (Auto) Eos % (Auto) Baso % (Auto) Lymph # (Auto) [place] # (Auto) Eos # (Auto) Baso # (Auto) Abs Immat Gran (auto) Absolute Neuts (auto) Absolute Nucleated RBC Nucleated RBC % (auto) Smear Tech's Comments PT INR APTT 28.6 D-Dimer VBG pH VBG pCO2 VBG pO2 VBG HCO3 VBG O2 Saturation VBG Base Excess Sodium Potassium Chloride Carbon Dioxide Anion Gap BUN Creatinine Estim Creat Clear Calc Estimated GFR POC Glucose 162 H 161 H Random Glucose Calcium Phosphorus Magnesium Total Bilirubin AST ALT Alkaline Phosphatase C-Reactive Protein Total Protein Albumin 01/22/21 01/22/21 01/22/21 17:09 17:30 20:00 WBC RBC Hgb Hct MCV MCH MCHC RDW Plt Count MPV Immature Gran % (Auto) Neut % (Auto) Lymph % (Auto) [place] % (Auto) Eos % (Auto) Baso % (Auto) Lymph # (Auto) [place] # (Auto) Eos # (Auto) Baso # (Auto) Abs Immat Gran (auto) Absolute Neuts (auto) Absolute Nucleated RBC Nucleated RBC % (auto) Smear Tech's Comments PT INR APTT 86.9 H* D D-Dimer VBG pH VBG pCO2 VBG pO2 VBG HCO3 VBG O2 Saturation VBG Base Excess Sodium Potassium Chloride Carbon Dioxide Anion Gap BUN Creatinine Estim Creat Clear Calc Estimated GFR POC Glucose 169 H 217 H Random Glucose Calcium Phosphorus Magnesium Total Bilirubin AST ALT Alkaline Phosphatase C-Reactive Protein Total Protein Albumin 01/22/21 01/22/21 01/23/21 20:27 22:08 00:10 WBC RBC Hgb Hct MCV MCH MCHC RDW Plt Count MPV Immature Gran % (Auto) Neut % (Auto) Lymph % (Auto) [place] % (Auto) Eos % (Auto) Baso % (Auto) Lymph # (Auto) [place] # (Auto) Eos # (Auto) Baso # (Auto) Abs Immat Gran (auto) Absolute Neuts (auto) Absolute Nucleated RBC Nucleated RBC % (auto) Smear Tech's Comments PT INR APTT 94.7 H* 82.3 H* D-Dimer VBG pH VBG pCO2 VBG pO2 VBG HCO3 VBG O2 Saturation VBG Base Excess Sodium Potassium Chloride Carbon Dioxide Anion Gap BUN Creatinine Estim Creat Clear Calc Estimated GFR POC Glucose 205 H Random Glucose Calcium Phosphorus Magnesium Total Bilirubin AST ALT Alkaline Phosphatase C-Reactive Protein Total Protein Albumin 01/23/21 01/23/21 01/23/21 00:12 01:50 01:51 WBC RBC Hgb Hct MCV MCH MCHC RDW Plt Count MPV Immature Gran % (Auto) Neut % (Auto) Lymph % (Auto) [place] % (Auto) Eos % (Auto) Baso % (Auto) Lymph # (Auto) [place] # (Auto) Eos # (Auto) Baso # (Auto) Abs Immat Gran (auto) Absolute Neuts (auto) Absolute Nucleated RBC Nucleated RBC % (auto) Smear Tech's Comments PT INR APTT 69.6 H* D-Dimer VBG pH VBG pCO2 VBG pO2 VBG HCO3 VBG O2 Saturation VBG Base Excess Sodium Potassium Chloride Carbon Dioxide Anion Gap BUN Creatinine Estim Creat Clear Calc Estimated GFR POC Glucose 194 H 177 H Random Glucose Calcium Phosphorus Magnesium Total Bilirubin AST ALT Alkaline Phosphatase C-Reactive Protein Total Protein Albumin 01/23/21 01/23/21 01/23/21 04:11 05:16 05:16 WBC 6.4 RBC 2.84 L Hgb 7.8 L Hct 24.8 L MCV 87.3 MCH 27.5 MCHC 31.5 RDW 15.2 Plt Count 76 L MPV Not Reportable Immature Gran % (Auto) 1.1 H Neut % (Auto) 76.7 H Lymph % (Auto) 16.3 L [place] % (Auto) 5.6 Eos % (Auto) 0.3 Baso % (Auto) 0.0 Lymph # (Auto) 1.1 L [place] # (Auto) 0.4 Eos # (Auto) 0.0 Baso # (Auto) 0.0 Abs Immat Gran (auto) 0.07 H Absolute Neuts (auto) 4.9 Absolute Nucleated RBC 0.000 Nucleated RBC % (auto) 0.0 Smear Tech's Comments VERIFIED PT 31.9 H D INR 2.7 H APTT 69.1 H* D-Dimer 683 VBG pH VBG pCO2 VBG pO2 VBG HCO3 VBG O2 Saturation VBG Base Excess Sodium Potassium Chloride Carbon Dioxide Anion Gap BUN Creatinine Estim Creat Clear Calc Estimated GFR POC Glucose 125 H Random Glucose Calcium Phosphorus Magnesium Total Bilirubin AST ALT Alkaline Phosphatase C-Reactive Protein Total Protein Albumin 01/23/21 01/23/21 01/23/21 05:16 05:23 05:37 WBC RBC Hgb Hct MCV MCH MCHC RDW Plt Count MPV Immature Gran % (Auto) Neut % (Auto) Lymph % (Auto) [place] % (Auto) Eos % (Auto) Baso % (Auto) Lymph # (Auto) [place] # (Auto) Eos # (Auto) Baso # (Auto) Abs Immat Gran (auto) Absolute Neuts (auto) Absolute Nucleated RBC Nucleated RBC % (auto) Smear Tech's Comments PT INR APTT D-Dimer VBG pH 7.47 H VBG pCO2 27 VBG pO2 39 VBG HCO3 20 L VBG O2 Saturation 63.0 VBG Base Excess -2.5 Sodium 148 H Potassium 3.5 Chloride 118 H Carbon Dioxide 21 L Anion Gap 13 BUN 58 H Creatinine 2.28 H Estim Creat Clear Calc 57.7 Estimated GFR 31 POC Glucose 126 H Random Glucose 125 H D Calcium 7.8 L Phosphorus 2.7 Magnesium 2.3 Total Bilirubin 0.6 AST 16 ALT 22 Alkaline Phosphatase 84 C-Reactive Protein 7.01 H Total Protein 5.1 L Albumin 2.0 L 01/23/21 07:40 WBC RBC Hgb Hct MCV MCH MCHC RDW Plt Count MPV Immature Gran % (Auto) Neut % (Auto) Lymph % (Auto) [place] % (Auto) Eos % (Auto) Baso % (Auto) Lymph # (Auto) [place] # (Auto) Eos # (Auto) Baso # (Auto) Abs Immat Gran (auto) Absolute Neuts (auto) Absolute Nucleated RBC Nucleated RBC % (auto) Smear Tech's Comments PT INR APTT D-Dimer VBG pH VBG pCO2 VBG pO2 VBG HCO3 VBG O2 Saturation VBG Base Excess Sodium Potassium Chloride Carbon Dioxide Anion Gap BUN Creatinine Estim Creat Clear Calc Estimated GFR POC Glucose 142 H Random Glucose Calcium Phosphorus Magnesium Total Bilirubin AST ALT Alkaline Phosphatase C-Reactive Protein Total Protein Albumin Microbiology Microbiology Results: Microbiology 01/19/21 08:06 Sputum - Suctioned Gram Stain - Final 01/19/21 08:06 Sputum - Suctioned Sputum Culture - Final Strep agalactiae (Grp B) 01/15/21 05:54 Blood - Central Line Blood Culture - Final No growth after 5 days. 01/15/21 05:54 Blood - Central Line Blood Culture - Final No growth after 5 days. 01/09/21 21:01 Sputum - Suctioned Gram Stain - Final 01/09/21 21:01 Sputum - Suctioned Sputum Culture - Final 01/07/21 05:25 Blood - Venous Blood Culture - Final No growth after 5 days. 01/07/21 05:18 Blood - Venous Blood Culture - Final No growth after 5 days. Progress Note: A&P Assessment and plan (1) Acute respiratory distress syndrome (ARDS) due to COVID-19 virus: Status: Acute Assessment and Plan: Assessment: 45-year-old gentleman with multiple medical issues admitted with acute hypoxic respiratory failure secondary to COVID-19 ARDS further complicated by acute on chronic renal failure on the background of peripheral vascular disease and hepatitis-C cirrhosis. Plan: Neuro: No acute issues. Underlying history of CVA, previously on dual antiplatelet therapy, held secondary to recent GI bleed. Cardiac: No acute issues. Underlying history of hypertension. Pulmonary: Acute hypoxic respiratory failure secondary to COVID-19 ARDS requiring ventilatory support. Continue to titrate off as tolerated. Renal: Acute on chronic renal failure , likely multifactorial, improving. Nephrology service care appreciated. Continue to monitor renal indices and urine output. Endo: Hyperglycemia without diabetic ketoacidosis. Continue insulin drip. GI: No acute issues. ID: [id number]. Completed x-ray methadone. Being titrated off Solu-Medrol. Heme/Onc: No acute issues. Psych: No acute issues. Miscellaneous: No acute issues. Prophylaxis: Heparin, ppi Diet: Tube feeds Critical care time spent: 60 minutes (2) Thrombocytopenia associated with COVID-19: Status: Acute (3) Acute on chronic kidney failure: Status: Acute (4) Acute respiratory failure with hypoxia: Status: Acute (5) Hepatitis C, chronic: Status: Acute (6) Cirrhosis: Status: Acute (7) Diabetes: Status: Acute Quality Stroke Does the patient have a stroke diagnosis?: No VTE Prior VTE?: No VTE Risk Level:: Medical - moderate - high VTE Device Contraindication: Treatment Not Indicated VTE Drug Contraindication: N/A - Med Ordered
[2021-01-23] MEDS: Insulin Regular/NS 100 UNIT/100 ML PLAST..BAG 8 UNIT IVCONT (09:38)
--- NOTE | 2021-01-23 09:54 | MHC.CLN ---
F/U PT RECEIVING NEPRO AT MAX GOAL RATE 20CC/HR WITH PROSOURCE TID AND 300CC FREE WATER FLUSHES Q 6 HOURS PROVIDES 1044KCALS (1440KCALS WITH SEDATION; 19KCALS/KG BASED ON IBW), 84G PROTEIN (1.1G/KG), 1549CC TOTAL WATER FROM FORMULA AND FLUSHES (21CC/KG BASED ON IBW) RECOMMEND INCREASING TF NEPRO AT MAX GOAL RATE 30CC/HR WITH PROSOURCE TID AND 300CC FREE WATER Q 6 HRS TO PROVIDE 1872 TOTAL KCALS (25KCALS/KG INCLUDES SEDATION), 103G TOTAL PROTEIN (1.4G/KG), 1723CC TOTAL WATER FROM FORMULA AND FLUSHES (23CC/KG) MONITOR TOLERANCE, RESIDUALS AND LYTES
[2021-01-23 10:07] LABS: Glucose, Whole Blood 138 mg/dL (60-115)
[2021-01-23] MEDS: Heparin Sodium,Porcine 5,000 UNIT/ML VIAL 5000 UNIT SUBCUT ×2 (10:59→20:11)
--- NOTE | 2021-01-23 11:36 | MHC.CM.PN ---
Pt remains on vent support but is making small gains: goals for today include sedation and vent setting weaning. Renal fx improving and pt is more alert. Calls placed to pts family to give clinical updates. D/C plans remain unfinalized and will depend on pt's weaning ability. Likely, he will require STR.
[2021-01-23 12:09] LABS: Glucose, Whole Blood 142 mg/dL (60-115)
[2021-01-23 13:51] LABS: Glucose, Whole Blood 147 mg/dL (60-115)
[2021-01-23 14:02] LABS: HIT-Patient Optical Density 0.076 OD UNITS (<OR= 0.300); Heparin Induced Plt Ab NEGATIVE (NEGATIVE)
[2021-01-23 16:14] LABS: Glucose, Whole Blood 130 mg/dL (60-115)
[2021-01-23 18:05] LABS: Glucose, Whole Blood 106 mg/dL (60-115)
[2021-01-23 20:28] LABS: Glucose, Whole Blood 152 mg/dL (60-115)
[2021-01-23 22:25] LABS: Glucose, Whole Blood 161 mg/dL (60-115)
[2021-01-23] MEDS: propofoL 1,000 MG/100 ML VIAL 22.5 MG IVCONT (23:32)
[2021-01-24] VITALS (32 sets, daily range): BP systolic 123–189; BP diastolic 61–97; PULSE 82–109; RESP 11–105; TEMP 36.4–37.9; O2SAT 88–96; BMI 35.9
[2021-01-24 01:41] LABS: Glucose, Whole Blood 138 mg/dL (60-115)
[2021-01-24] MEDS: Insulin Regular/NS 100 UNIT/100 ML PLAST..BAG IVCONT ×2 (02:15→20:23)
[2021-01-24] MEDS: propofoL 1,000 MG/100 ML VIAL 22.5 MG IVCONT ×2 (02:16→05:34)
[2021-01-24 02:54] LABS: Glucose, Whole Blood 153 mg/dL (60-115)
[2021-01-24 04:48] LABS: Glucose, Whole Blood 162 mg/dL (60-115)
[2021-01-24 05:08] LABS: VBG Base Excess -3.7 mmol/L; VBG HCO3 20 mmol/L (22-26); VBG pCO2 33 mmHg; VBG pH 7.39 (7.32-7.43); VBG pO2 41 mmHg
[2021-01-24 05:13] LABS: Venous Blood Gas Refer to POC result
[2021-01-24 05:38] LABS: Eosinophils Absolute Auto 0.1 X10*3/uL (0.0-0.4); Eosinophils Percent Auto 1.1 % (0-4); Imm Gran Abs Auto 0.05 X10*3/uL (0.00-0.03); Imm Gran Pct Auto 0.8 % (0.0-0.4); MANUAL DIFF FLAG SCAN; Monocytes Absolute Auto 0.3 X10*3/uL (0.1-1.2); Red Cell Distribution Width 15.7 % (11.0-16.0); SCAN SMEAR FLAG 1
[2021-01-24 05:40] LABS: Hematocrit 24.4 % (42-52); Hemoglobin 7.5 g/dl (14.0-18.0); Lymphocytes Absolute Auto 1.3 X10*3/uL (1.2-4.9); Lymphocytes Percent Auto 19.8 % (20-40); Mean Corpuscular HGB Conc 30.7 g/dl (31.0-36.0); Mean Corpuscular Hemoglobin 27.5 pg (27.0-33.0); Mean Corpuscular Volume 89.4 fL (80-98); Mean Platelet Volume 13.6 fL (9.4-12.4); Monocytes Percent Auto 5.2 % (2-11); Neutrophils Absolute Auto 4.8 X10*3/uL (2.0-8.3); Neutrophils Percent Auto 73.1 % (45-73); Red Blood Count 2.73 X10*6/uL (4.60-5.80); White Blood Count 6.5 X10*3/uL (4.8-10.8)
[2021-01-24 05:41] LABS: PLT ABN DIST 1; Platelet Count 73 X10*3/uL (160-400)
[2021-01-24 05:50] LABS: Albumin Level 1.9 g/dL (3.5-5.0); Anion Gap 11 (12-20); Blood Urea Nitrogen 58 mg/dL (9-16); Calcium 7.6 mg/dL (8.4-10.2); Carbon Dioxide 22 mmol/L (22-29); Chloride 114 mmol/L (96-108); Creatinine Clr Calc Pharmacy 58.4; Estimated Glomerular Filt Rate 32; Glucose Random 176 mg/dL (60-115); Magnesium 2.1 mg/dL (1.6-2.6); Phosphorus 2.9 mg/dL (2.7-4.5); Potassium 3.2 mmol/L (3.3-5.1); Sodium 144 mmol/L (135-145)
[2021-01-24 05:58] LABS: SLIDE REVIEW VERIFIED
[2021-01-24 06:30] LABS: Glucose, Whole Blood 162 mg/dL (60-115)
[2021-01-24] MEDS: Labetalol HCL 100 MG TABLET 300 MG OG-TUBE ×2 (07:04→20:24)
[2021-01-24] MEDS: Lactulose 20 GM/30 ML SOLUTION OG-TUBE ×2 (07:04→20:23)
[2021-01-24] MEDS: Chlorhexidine Gluc Oral Rinse 15 ML MOUTHWASH BUCCAL ×2 (07:04→20:23)
[2021-01-24] MEDS: Sevelamer Carbonate Powder 800 MG POWD.PACK 1600 MG PO (07:05)
[2021-01-24] MEDS: methylPREDNISolone Sod Succ 125 MG/2 ML VIAL 50 MG IVPUSH (07:05)
[2021-01-24] MEDS: Potassium Chloride Packet 20 MEQ PACKET 40 MEQ OG-TUBE (07:05)
[2021-01-24] MEDS: Sodium Bicarbonate 650 MG TABLET PO ×2 (07:05→20:24)
[2021-01-24] MEDS: 0.9 % Sodium Chloride Flush 3 ML SYRINGE IVFLUSH ×3 (07:07→23:14)
[2021-01-24 08:04] LABS: Glucose, Whole Blood 178 mg/dL (60-115)
[2021-01-24] MEDS: Heparin Sodium,Porcine 5,000 UNIT/ML VIAL 5000 UNIT SUBCUT ×2 (08:05→23:11)
[2021-01-24] MEDS: Aspirin 81 MG TAB.CHEW OG-TUBE (08:05)
[2021-01-24] MEDS: Albumin Human 25 % 100 ML IV ×3 (08:09→20:21)
[2021-01-24] MEDS: Potassium Chloride/H20 40 MEQ/100 ML PIGGYBACK 100 MEQ IV (08:10)
--- NOTE | 2021-01-24 08:42 | P.PNCC_ITS ---
Subjective Subjective Date of Service: 01/24/21 Interval History: 45-year-old gentleman with underlying diabetes mellitus, CKD stage 3, peripheral vascular disease status post bilateral BKA, CVA on dual antiplatelet therapy, hep C cirrhosis, asthma, COVID-19 positive on 01/01/2021, recently hospitalized at [facility] on 01/01/2021 through 01/04/2021 for lower GI bleed, cirrhosis, COVID-19. Patient has had CT chest demonstrated colonic thickening versus mass, however endoscopy/colonoscopy were deferred for 2 weeks for resolution of his COVID symptoms, CT abdomen pelvis from this admission did not redemonstrate any mass or colitis. He has been admitted on 01/07/2021 with progressive hypoxemia requiring high-flow nasal cannula, acute on chronic kidney injury, hyperglycemia, and significant metabolic acidosis. His CT abdomen pelvis was negative colitis or mass. Secondary to refractory hypoxemia patient required intubation on 01/08/2021. No events overnight. Critical Care Time (minutes): 60 Physical Exam Vital Signs: Vital Signs: Last Vital Signs Temp 97.9 F 01/24/21 08:00 Pulse 93 01/24/21 08:00 Resp 24 H 01/24/21 08:00 BP 168/75 H 01/24/21 08:00 Pulse Ox 90 L 01/24/21 08:00 Oxygen Flow Rate 100 01/07/21 05:11 Body Mass Index 35.9 Const: General: no acute distress and other (Sedated on the vent, follows some commands with sedation vacation) Eyes: Sclerae: sclerae normal EOM: EOMs intact bilaterally Neck: Neck: Yes no lymphadenopathy, Yes trachea midline and Yes supple Resp: Auscultation: crackles (Bibasilar) Cardio: Rate: regular rate Rhythm: regular rhythm Heart sounds: no gallops, no murmurs and no rubs GI: Palpation (GI): Soft to palpation and Other GI palpation findings present ( Nontender) Auscultation: normal bowel sounds Extrem: General: No clubbing, No cyanosis and Yes other (Bilateral BKA) Objective Data Labs CBC & Chem 7: 01/24/21 05:00 01/24/21 05:00 Labs: Laboratory Results - last 24 hr 01/22/21 01/23/21 01/23/21 05:00 09:40 11:57 WBC RBC Hgb Hct MCV MCH MCHC RDW Plt Count MPV Immature Gran % (Auto) Neut % (Auto) Lymph % (Auto) [place] % (Auto) Eos % (Auto) Baso % (Auto) Lymph # (Auto) [place] # (Auto) Eos # (Auto) Baso # (Auto) Abs Immat Gran (auto) Absolute Neuts (auto) Absolute Nucleated RBC Nucleated RBC % (auto) Smear Tech's Comments Hep-Ind Thrombocytop Com See Below VBG pH VBG pCO2 VBG pO2 VBG HCO3 VBG O2 Saturation VBG Base Excess Sodium Potassium Chloride Carbon Dioxide Anion Gap BUN Creatinine Estim Creat Clear Calc Estimated GFR POC Glucose 138 H 142 H Random Glucose Calcium Phosphorus Magnesium Albumin Heparin Dep Plt Ab OD 0.076 Hep-Induced Plt Ab Alfred[place] NEGATIVE 01/23/21 01/23/21 01/23/21 13:46 15:46 17:58 WBC RBC Hgb Hct MCV MCH MCHC RDW Plt Count MPV Immature Gran % (Auto) Neut % (Auto) Lymph % (Auto) [place] % (Auto) Eos % (Auto) Baso % (Auto) Lymph # (Auto) [place] # (Auto) Eos # (Auto) Baso # (Auto) Abs Immat Gran (auto) Absolute Neuts (auto) Absolute Nucleated RBC Nucleated RBC % (auto) Smear Tech's Comments Hep-Ind Thrombocytop Com VBG pH VBG pCO2 VBG pO2 VBG HCO3 VBG O2 Saturation VBG Base Excess Sodium Potassium Chloride Carbon Dioxide Anion Gap BUN Creatinine Estim Creat Clear Calc Estimated GFR POC Glucose 147 H 130 H 106 Random Glucose Calcium Phosphorus Magnesium Albumin Heparin Dep Plt Ab OD Hep-Induced Plt Ab Alfreda 01/23/21 01/23/21 01/23/21 20:13 22:12 23:55 WBC RBC Hgb Hct MCV MCH MCHC RDW Plt Count MPV Immature Gran % (Auto) Neut % (Auto) Lymph % (Auto) [place] % (Auto) Eos % (Auto) Baso % (Auto) Lymph # (Auto) [place] # (Auto) Eos # (Auto) Baso # (Auto) Abs Immat Gran (auto) Absolute Neuts (auto) Absolute Nucleated RBC Nucleated RBC % (auto) Smear Tech's Comments Hep-Ind Thrombocytop Com VBG pH VBG pCO2 VBG pO2 VBG HCO3 VBG O2 Saturation VBG Base Excess Sodium Potassium Chloride Carbon Dioxide Anion Gap BUN Creatinine Estim Creat Clear Calc Estimated GFR POC Glucose 152 H 161 H 138 H Random Glucose Calcium Phosphorus Magnesium Albumin Heparin Dep Plt Ab OD Hep-Induced Plt Ab Alfreda 01/24/21 01/24/21 01/24/21 02:20 04:17 05:00 WBC 6.5 RBC 2.73 L Hgb 7.5 L Hct 24.4 L MCV 89.4 MCH 27.5 MCHC 30.7 L RDW 15.7 Plt Count 73 L MPV 13.6 H Immature Gran % (Auto) 0.8 H Neut % (Auto) 73.1 H Lymph % (Auto) 19.8 L [place] % (Auto) 5.2 Eos % (Auto) 1.1 Baso % (Auto) 0.0 Lymph # (Auto) 1.3 [place] # (Auto) 0.3 Eos # (Auto) 0.1 Baso # (Auto) 0.0 Abs Immat Gran (auto) 0.05 H Absolute Neuts (auto) 4.8 Absolute Nucleated RBC 0.000 Nucleated RBC % (auto) 0.0 Smear Tech's Comments VERIFIED Hep-Ind Thrombocytop Com VBG pH VBG pCO2 VBG pO2 VBG HCO3 VBG O2 Saturation VBG Base Excess Sodium Potassium Chloride Carbon Dioxide Anion Gap BUN Creatinine Estim Creat Clear Calc Estimated GFR POC Glucose 153 H 162 H Random Glucose Calcium Phosphorus Magnesium Albumin Heparin Dep Plt Ab OD Hep-Induced Plt Ab Alfreda 01/24/21 01/24/21 01/24/21 05:00 05:00 06:10 WBC RBC Hgb Hct MCV MCH MCHC RDW Plt Count MPV Immature Gran % (Auto) Neut % (Auto) Lymph % (Auto) [place] % (Auto) Eos % (Auto) Baso % (Auto) Lymph # (Auto) [place] # (Auto) Eos # (Auto) Baso # (Auto) Abs Immat Gran (auto) Absolute Neuts (auto) Absolute Nucleated RBC Nucleated RBC % (auto) Smear Tech's Comments Hep-Ind Thrombocytop Com VBG pH 7.39 VBG pCO2 33 VBG pO2 41 VBG HCO3 20 L VBG O2 Saturation 64.0 VBG Base Excess -3.7 Sodium 144 Potassium 3.2 L Chloride 114 H Carbon Dioxide 22 Anion Gap 11 L BUN 58 H Creatinine 2.25 H Estim Creat Clear Calc 58.4 Estimated GFR 32 POC Glucose 162 H Random Glucose 176 H D Calcium 7.6 L Phosphorus 2.9 Magnesium 2.1 Albumin 1.9 L Heparin Dep Plt Ab OD Hep-Induced Plt Ab Alfreda 01/24/21 08:00 WBC RBC Hgb Hct MCV MCH MCHC RDW Plt Count MPV Immature Gran % (Auto) Neut % (Auto) Lymph % (Auto) [place] % (Auto) Eos % (Auto) Baso % (Auto) Lymph # (Auto) [place] # (Auto) Eos # (Auto) Baso # (Auto) Abs Immat Gran (auto) Absolute Neuts (auto) Absolute Nucleated RBC Nucleated RBC % (auto) Smear Tech's Comments Hep-Ind Thrombocytop Com VBG pH VBG pCO2 VBG pO2 VBG HCO3 VBG O2 Saturation VBG Base Excess Sodium Potassium Chloride Carbon Dioxide Anion Gap BUN Creatinine Estim Creat Clear Calc Estimated GFR POC Glucose 178 H Random Glucose Calcium Phosphorus Magnesium Albumin Heparin Dep Plt Ab OD Hep-Induced Plt Ab Alfreda Microbiology Microbiology Results: Microbiology 01/22/21 10:29 Blood - Venous Blood Culture - Preliminary No growth after 24 hours. 01/22/21 10:20 Blood - Venous Blood Culture - Preliminary No growth after 24 hours. 01/19/21 08:06 Sputum - Suctioned Gram Stain - Final 01/19/21 08:06 Sputum - Suctioned Sputum Culture - Final Strep agalactiae (Grp B) 01/15/21 05:54 Blood - Central Line Blood Culture - Final No growth after 5 days. 01/15/21 05:54 Blood - Central Line Blood Culture - Final No growth after 5 days. 01/09/21 21:01 Sputum - Suctioned Gram Stain - Final 01/09/21 21:01 Sputum - Suctioned Sputum Culture - Final 01/07/21 05:25 Blood - Venous Blood Culture - Final No growth after 5 days. 01/07/21 05:18 Blood - Venous Blood Culture - Final No growth after 5 days. Progress Note: A&P Assessment and plan (1) Thrombocytopenia associated with COVID-19: Status: Acute Assessment and Plan: Assessment: 45-year-old gentleman with multiple medical issues admitted with acute hypoxic respiratory failure secondary to COVID-19 ARDS further complicated by acute on chronic renal failure on the background of peripheral vascular disease and hepatitis-C cirrhosis. Plan: Neuro: No acute issues. Underlying history of CVA, previously on dual antiplatelet therapy, held secondary to recent GI bleed. Cardiac: No acute issues. Underlying history of hypertension. Pulmonary: Acute hypoxic respiratory failure secondary to COVID-19 ARDS requiring ventilatory support. Continue to titrate off as tolerated. Renal: Acute on chronic renal failure , likely multifactorial, appears to be at the new baseline of creatinine of approximately 2.2. Nephrology service care appreciated. Continue to monitor renal indices and urine output. Endo: Hyperglycemia without diabetic ketoacidosis. Continue insulin drip. GI: No acute issues. ID: [id number]. Completed dexamethasone. Being titrated off Solu-Medrol. Heme/Onc: No acute issues. Psych: No acute issues. Miscellaneous: No acute issues. Prophylaxis: Heparin, ppi Diet: Tube feeds Critical care time spent: 60 minutes (2) Acute respiratory distress syndrome (ARDS) due to COVID-19 virus: Status: Acute (3) Acute on chronic kidney failure: Status: Acute (4) Acute respiratory failure with hypoxia: Status: Acute (5) Hepatitis C, chronic: Status: Acute (6) Cirrhosis: Status: Acute (7) Diabetes: Status: Acute (8) Hypertension: Status: Acute (9) Amputated below knee: Status: Acute Quality Stroke Does the patient have a stroke diagnosis?: No VTE Prior VTE?: No VTE Risk Level:: Medical - moderate - high VTE Device Contraindication: Treatment Not Indicated VTE Drug Contraindication: N/A - Med Ordered
[2021-01-24] MEDS: Furosemide 40 MG/4 ML VIAL IVPUSH ×2 (09:07→22:36)
[2021-01-24 09:53] LABS: Glucose, Whole Blood 220 mg/dL (60-115)
[2021-01-24 13:57] LABS: Glucose, Whole Blood 207 mg/dL (60-115)
[2021-01-24 16:34] LABS: Glucose, Whole Blood 249 mg/dL (60-115)
[2021-01-24 16:34] LABS: Glucose, Whole Blood 208 mg/dL (60-115)
[2021-01-24 18:06] LABS: Glucose, Whole Blood 171 mg/dL (60-115)
[2021-01-24] MEDS: Labetalol HCL 100 MG/20 ML VIAL 10 MG IVPUSH ×3 (18:32→22:24)
[2021-01-24 20:11] LABS: Glucose, Whole Blood 132 mg/dL (60-115)
[2021-01-24 21:56] LABS: Glucose, Whole Blood 85 mg/dL (60-115)
--- NOTE | 2021-01-24 22:53 | PM.PNNEP ---
Subjective Subjective Date of Service: 01/24/21 Interval history: 45-year-old gentleman with underlying diabetes mellitus, CKD stage 3, peripheral vascular disease status post bilateral BKA, CVA on dual antiplatelet therapy, hep C cirrhosis, asthma, COVID-19 positive on 01/01/2021, recently hospitalized at [facility] on 01/01/2021 through 01/04/2021 for lower GI bleed, cirrhosis, COVID-19. Patient has had CT chest demonstrated colonic thickening versus mass, however endoscopy/colonoscopy were deferred for 2 weeks for resolution of his COVID symptoms, CT abdomen pelvis from this admission did not redemonstrate any mass or colitis. He has been admitted on 01/07/2021 with progressive hypoxemia requiring high-flow nasal cannula, acute on chronic kidney injury, hyperglycemia, and significant metabolic acidosis. His CT abdomen pelvis was negative colitis or mass. Secondary to refractory hypoxemia patient required intubation on 01/08/2021. No events overnight. Physical Exam Vital Signs: Vital Signs: Last Vital Signs Temp 100.2 F 01/24/21 22:00 Pulse 102 H 01/24/21 22:24 Resp 20 01/24/21 22:00 BP 172/76 H 01/24/21 22:24 Pulse Ox 91 L 01/24/21 22:00 Oxygen Flow Rate 100 01/07/21 05:11 Body Mass Index 35.9 Const: Other: he open his eyes without making eye contact and had a response to command but the but much more weekly so a little bit of coolness to his peripheral extremities but good bilateral carotid upstrokes no gallops no neck vein distension CVP when quiet and balanced at about 5-6 and that is relatively unchanged remaining in sinus tachycardia and BUN and creatinine actually have decreased to the lowest levels of 60/2.2 metabolically comfortable no change in white count or left shift but progressively worsening thrombocytopenia for which I stop the heparin and obtain the heparin induced platelet antibody General: no acute distress, alert, awake, anxious and other (Sedated on the vent, follows some commands with sedation vacation) Nutritional Appearance: obese Eyes: Sclerae: sclerae normal EOM: EOMs intact bilaterally Neck: Neck: Yes no lymphadenopathy, Yes trachea midline and Yes supple Resp: Effort & Inspection: normal respiratory effort and no respiratory distress Auscultation: clear to auscultation bilaterally, crackles (Bibasilar) and rhonchi Cardio: Rate: regular rate and tachycardic Rhythm: regular rhythm Heart sounds: no gallops, no murmurs and no rubs GI: Inspection: Yes normal to inspection Palpation (GI): Soft to palpation and Other GI palpation findings present ( Nontender) Auscultation: normal bowel sounds Extrem: General: No clubbing, No cyanosis and Yes other (Bilateral BKA) Objective Data Labs CBC & Chem 7: 01/24/21 05:00 01/24/21 05:00 Labs: Laboratory Results - last 24 hr 01/23/21 01/24/21 01/24/21 23:55 02:20 04:17 WBC RBC Hgb Hct MCV MCH MCHC RDW Plt Count MPV Immature Gran % (Auto) Neut % (Auto) Lymph % (Auto) [place] % (Auto) Eos % (Auto) Baso % (Auto) Lymph # (Auto) [place] # (Auto) Eos # (Auto) Baso # (Auto) Abs Immat Gran (auto) Absolute Neuts (auto) Absolute Nucleated RBC Nucleated RBC % (auto) Smear Tech's Comments VBG pH VBG pCO2 VBG pO2 VBG HCO3 VBG O2 Saturation VBG Base Excess Sodium Potassium Chloride Carbon Dioxide Anion Gap BUN Creatinine Estim Creat Clear Calc Estimated GFR POC Glucose 138 H 153 H 162 H Random Glucose Calcium Phosphorus Magnesium Albumin 01/24/21 01/24/21 01/24/21 05:00 05:00 05:00 WBC 6.5 RBC 2.73 L Hgb 7.5 L Hct 24.4 L MCV 89.4 MCH 27.5 MCHC 30.7 L RDW 15.7 Plt Count 73 L MPV 13.6 H Immature Gran % (Auto) 0.8 H Neut % (Auto) 73.1 H Lymph % (Auto) 19.8 L [place] % (Auto) 5.2 Eos % (Auto) 1.1 Baso % (Auto) 0.0 Lymph # (Auto) 1.3 [place] # (Auto) 0.3 Eos # (Auto) 0.1 Baso # (Auto) 0.0 Abs Immat Gran (auto) 0.05 H Absolute Neuts (auto) 4.8 Absolute Nucleated RBC 0.000 Nucleated RBC % (auto) 0.0 Smear Tech's Comments VERIFIED VBG pH 7.39 VBG pCO2 33 VBG pO2 41 VBG HCO3 20 L VBG O2 Saturation 64.0 VBG Base Excess -3.7 Sodium 144 Potassium 3.2 L Chloride 114 H Carbon Dioxide 22 Anion Gap 11 L BUN 58 H Creatinine 2.25 H Estim Creat Clear Calc 58.4 Estimated GFR 32 POC Glucose Random Glucose 176 H D Calcium 7.6 L Phosphorus 2.9 Magnesium 2.1 Albumin 1.9 L 01/24/21 01/24/21 01/24/21 06:10 08:00 09:47 WBC RBC Hgb Hct MCV MCH MCHC RDW Plt Count MPV Immature Gran % (Auto) Neut % (Auto) Lymph % (Auto) [place] % (Auto) Eos % (Auto) Baso % (Auto) Lymph # (Auto) [place] # (Auto) Eos # (Auto) Baso # (Auto) Abs Immat Gran (auto) Absolute Neuts (auto) Absolute Nucleated RBC Nucleated RBC % (auto) Smear Tech's Comments VBG pH VBG pCO2 VBG pO2 VBG HCO3 VBG O2 Saturation VBG Base Excess Sodium Potassium Chloride Carbon Dioxide Anion Gap BUN Creatinine Estim Creat Clear Calc Estimated GFR POC Glucose 162 H 178 H 220 H Random Glucose Calcium Phosphorus Magnesium Albumin 01/24/21 01/24/21 01/24/21 12:03 14:08 16:00 WBC RBC Hgb Hct MCV MCH MCHC RDW Plt Count MPV Immature Gran % (Auto) Neut % (Auto) Lymph % (Auto) [place] % (Auto) Eos % (Auto) Baso % (Auto) Lymph # (Auto) [place] # (Auto) Eos # (Auto) Baso # (Auto) Abs Immat Gran (auto) Absolute Neuts (auto) Absolute Nucleated RBC Nucleated RBC % (auto) Smear Tech's Comments VBG pH VBG pCO2 VBG pO2 VBG HCO3 VBG O2 Saturation VBG Base Excess Sodium Potassium Chloride Carbon Dioxide Anion Gap BUN Creatinine Estim Creat Clear Calc Estimated GFR POC Glucose 207 H 249 H 208 H Random Glucose Calcium Phosphorus Magnesium Albumin 01/24/21 01/24/21 01/24/21 17:59 20:05 21:49 WBC RBC Hgb Hct MCV MCH MCHC RDW Plt Count MPV Immature Gran % (Auto) Neut % (Auto) Lymph % (Auto) [place] % (Auto) Eos % (Auto) Baso % (Auto) Lymph # (Auto) [place] # (Auto) Eos # (Auto) Baso # (Auto) Abs Immat Gran (auto) Absolute Neuts (auto) Absolute Nucleated RBC Nucleated RBC % (auto) Smear Tech's Comments VBG pH VBG pCO2 VBG pO2 VBG HCO3 VBG O2 Saturation VBG Base Excess Sodium Potassium Chloride Carbon Dioxide Anion Gap BUN Creatinine Estim Creat Clear Calc Estimated GFR POC Glucose 171 H 132 H 85 Random Glucose Calcium Phosphorus Magnesium Albumin Microbiology Microbiology Results: Microbiology 01/22/21 10:29 Blood - Venous Blood Culture - Preliminary No growth after 48 hours. 01/22/21 10:20 Blood - Venous Blood Culture - Preliminary No growth after 48 hours. 01/19/21 08:06 Sputum - Suctioned Gram Stain - Final 01/19/21 08:06 Sputum - Suctioned Sputum Culture - Final Strep agalactiae (Grp B) 01/15/21 05:54 Blood - Central Line Blood Culture - Final No growth after 5 days. 01/15/21 05:54 Blood - Central Line Blood Culture - Final No growth after 5 days. 01/09/21 21:01 Sputum - Suctioned Gram Stain - Final 01/09/21 21:01 Sputum - Suctioned Sputum Culture - Final 01/07/21 05:25 Blood - Venous Blood Culture - Final No growth after 5 days. 01/07/21 05:18 Blood - Venous Blood Culture - Final No growth after 5 days. Assessment & Plan Assessment and plan (1) Thrombocytopenia associated with COVID-19: Status: Acute Assessment and Plan: Assessment: 45-year-old gentleman with multiple medical issues admitted with acute hypoxic respiratory failure secondary to COVID-19 ARDS further complicated by acute on chronic renal failure on the background of peripheral vascular disease and hepatitis-C cirrhosis. Plan: Neuro: No acute issues. Underlying history of CVA, previously on dual antiplatelet therapy, held secondary to recent GI bleed. Cardiac: No acute issues. Underlying history of hypertension. Pulmonary: Acute hypoxic respiratory failure secondary to COVID-19 ARDS requiring ventilatory support. Continue to titrate off as tolerated. Renal: Acute on chronic renal failure , likely multifactorial, appears to be at the new baseline of creatinine of approximately 2.2. Nephrology service care appreciated. Continue to monitor renal indices and urine output. Endo: Hyperglycemia without diabetic ketoacidosis. Continue insulin drip. GI: No acute issues. ID: COVID-19. Completed dexamethasone. Being titrated off Solu-Medrol. Heme/Onc: No acute issues. Psych: No acute issues. Miscellaneous: No acute issues. Prophylaxis: Heparin, ppi Diet: Tube feeds Critical care time spent: 60 minutes (2) Acute respiratory distress syndrome (ARDS) due to COVID-19 virus: Status: Acute (3) Acute on chronic kidney failure: Status: Acute Assessment and Plan: stable CKD no new suggestions (4) Acute respiratory failure with hypoxia: Status: Acute (5) Hepatitis C, chronic: Status: Acute (6) Cirrhosis: Status: Acute (7) Diabetes: Status: Acute (8) Hypertension: Status: Acute (9) Amputated below knee: Status: Acute Time Spent With Patient Time: Total time spent is greater than 50% in coordination of care (as documented) at patient's floor/unit and/or counseling patient: Procedures Date of Service Date of Service: 01/24/21 Progress Note: Quality Stroke Does the patient have a stroke diagnosis?: No
[2021-01-24 23:58] LABS: Glucose, Whole Blood 96 mg/dL (60-115)
[2021-01-25] VITALS (37 sets, daily range): BP systolic 119–185; BP diastolic 66–99; PULSE 92–118; RESP 14–57; TEMP 37.3–38.4; O2SAT 85–98; BMI 62.5
[2021-01-25] MEDS: Albuterol/Iprat 2.5/0.5MG 3 ML AMPUL.NEB INHALE (01:13)
[2021-01-25] MEDS: fentaNYL citrate/PF 100 MCG/2 ML VIAL 50 MCG IVPUSH (01:24)
[2021-01-25] MEDS: LORazepam 2 MG/ML VIAL 1 MG IVPUSH ×3 (02:25→13:36)
[2021-01-25] MEDS: Albumin Human 25 % 100 ML IV (02:59)
[2021-01-25 03:14] LABS: Glucose, Whole Blood 129 mg/dL (60-115)
--- NOTE | 2021-01-25 03:48 | PC.NURSE ---
t has experienced deterioration in resp status necessitating bipap application. pt is awake/anxious. he will respond in 1-2 word muffled responses. his voice is hoarse and he has difficulty speaking. he elicits occular tracking and focusing. as the night proceeded, he has become anxious and has a look pf panic on his face. he will follow command. he holm purposefully. unfortunately, he has two old bilat bka. currently he is wearing a bipap mask with the following settings 8/5 fio2 100%. sao2 94-95%. tachypneic rr 40s bpm. asculation of a/p lung serrano reveals coarse scattered rhonchi with fine crackles audible RLL. pt has been frequently encouraged(q 1hr to cough and deep breath). he is able to mobilize a small amount of phlegm into the posteriororopharynx. heart tones s1s2. ecg displays st. b/p has been 140-180 mmhg. abdomen benign. npo. al[place]te catheter patent and draining clear yellow urine.- over night the following measures have been carried out 1. insulin drip d/c 2. lasix 40 mg iv 3. fentanyl 50 mcg iv for tachypnea 4. ativan 1 mg iv for anxiety 5. high flow and nrb replaced with bipap mask.
[2021-01-25 05:39] LABS: VBG Base Excess -4.5 mmol/L; VBG HCO3 19 mmol/L (22-26); VBG pCO2 33 mmHg; VBG pH 7.38 (7.32-7.43); VBG pO2 47 mmHg
[2021-01-25 05:56] LABS: Eosinophils Absolute Auto 0.1 X10*3/uL (0.0-0.4); Eosinophils Percent Auto 1.3 % (0-4); Hemoglobin 7.1 g/dl (14.0-18.0); Lymphocytes Percent Auto 12.8 % (20-40); MANUAL DIFF FLAG SCAN; SCAN SMEAR FLAG 1
[2021-01-25 05:58] LABS: Hematocrit 23.4 % (42-52); Imm Gran Abs Auto 0.04 X10*3/uL (0.00-0.03); Imm Gran Pct Auto 0.6 % (0.0-0.4); Lymphocytes Absolute Auto 0.9 X10*3/uL (1.2-4.9); Mean Corpuscular HGB Conc 30.3 g/dl (31.0-36.0); Mean Corpuscular Hemoglobin 27.5 pg (27.0-33.0); Mean Corpuscular Volume 90.7 fL (80-98); Mean Platelet Volume 13.4 fL (9.4-12.4); Monocytes Absolute Auto 0.3 X10*3/uL (0.1-1.2); Monocytes Percent Auto 4.2 % (2-11); Neutrophils Absolute Auto 5.8 X10*3/uL (2.0-8.3); Neutrophils Percent Auto 81.1 % (45-73); Red Blood Count 2.58 X10*6/uL (4.60-5.80); Red Cell Distribution Width 15.7 % (11.0-16.0); White Blood Count 7.2 X10*3/uL (4.8-10.8)
[2021-01-25 06:02] LABS: PLT ABN DIST 1; Platelet Count 67 X10*3/uL (160-400)
[2021-01-25] MEDS: Labetalol HCL 100 MG/20 ML VIAL 10 MG IVPUSH ×2 (06:20→13:32)
[2021-01-25 06:45] LABS: Anion Gap 18 (12-20); Blood Urea Nitrogen 54 mg/dL (9-16); Calcium 8.6 mg/dL (8.4-10.2); Carbon Dioxide 21 mmol/L (22-29); Chloride 115 mmol/L (96-108); Creatinine Clr Calc Pharmacy 70.7; Estimated Glomerular Filt Rate 27; Glucose Random 172 mg/dL (60-115); Magnesium 2.1 mg/dL (1.6-2.6); Phosphorus 2.6 mg/dL (2.7-4.5); Potassium 3.5 mmol/L (3.3-5.1); Sodium 150 mmol/L (135-145)
[2021-01-25 07:02] LABS: Venous Blood Gas Refer to POC result
--- NOTE | 2021-01-25 07:39 | P.PNNP_ITS ---
Subjective Subjective Date of Service: 01/25/21 Interval history: 45-year-old gentleman with underlying diabetes mellitus, CKD stage 3, peripheral vascular disease status post bilateral BKA, CVA on dual antiplatelet therapy, hep C cirrhosis, asthma, COVID-19 positive on 01/01/2021, recently hospitalized at [facility] on 01/01/2021 through 01/04/2021 for lower GI bleed, cirrhosis, COVID-19. Patient has had CT chest demonstrated colonic thickening versus mass, however endoscopy/colonoscopy were deferred for 2 weeks for resolution of his COVID symptoms, CT abdomen pelvis from this admission did not redemonstrate any mass or colitis. He has been admitted on 01/07/2021 with progressive hypoxemia requiring high-flow nasal cannula, acute on chronic kidney injury, hyperglycemia, and significant metabolic acidosis. His CT abdomen pelvis was negative colitis or mass. Secondary to refractory hypoxemia patient required intubation on 01/08/2021. No events overnight. Physical Exam Vital Signs: Vital Signs: Last Vital Signs Temp 101.1 F H 01/25/21 07:00 Pulse 118 H 01/25/21 07:00 Resp 57 H 01/25/21 07:00 BP 184/96 H 01/25/21 07:00 Pulse Ox 95 01/25/21 07:00 Oxygen Flow Rate 100 01/07/21 05:11 Body Mass Index 62.5 Const: Other: he open his eyes without making eye contact and had a response to command but the but much more weekly so a little bit of coolness to his peripheral extremities but good bilateral carotid upstrokes no gallops no neck vein distension CVP when quiet and balanced at about 5-6 and that is relatively unchanged remaining in sinus tachycardia and BUN and creatinine actually have decreased to the lowest levels of 60/2.2 metabolically comfortable no change in white count or left shift but progressively worsening thrombocytopenia for which I stop the heparin and obtain the heparin induced platelet antibody General: no acute distress, alert, awake, anxious and other (Sedated on the vent, follows some commands with sedation vacation) Nutritional Appearance: obese Eyes: Sclerae: sclerae normal EOM: EOMs intact bilaterally Neck: Neck: Yes no lymphadenopathy, Yes trachea midline and Yes supple Resp: Effort & Inspection: normal respiratory effort and no respiratory distress Auscultation: clear to auscultation bilaterally, crackles (Bibasilar) and rhonchi Cardio: Rate: regular rate and tachycardic Rhythm: regular rhythm Heart sounds: no gallops, no murmurs and no rubs GI: Inspection: Yes normal to inspection Palpation (GI): Soft to palpation and Other GI palpation findings present ( Nontender) Auscultation: normal bowel sounds Extrem: General: No clubbing, No cyanosis and Yes other (Bilateral BKA) Objective Data Labs CBC & Chem 7: 01/25/21 05:27 01/25/21 05:27 Labs: Laboratory Results - last 24 hr 01/24/21 01/24/21 01/24/21 08:00 09:47 12:03 WBC RBC Hgb Hct MCV MCH MCHC RDW Plt Count MPV Immature Gran % (Auto) Neut % (Auto) Lymph % (Auto) Cecil % (Auto) Eos % (Auto) Baso % (Auto) Lymph # (Auto) [place] # (Auto) Eos # (Auto) Baso # (Auto) Abs Immat Gran (auto) Absolute Neuts (auto) Absolute Nucleated RBC Nucleated RBC % (auto) VBG pH VBG pCO2 VBG pO2 VBG HCO3 VBG O2 Saturation VBG Base Excess Sodium Potassium Chloride Carbon Dioxide Anion Gap BUN Creatinine Estim Creat Clear Calc Estimated GFR POC Glucose 178 H 220 H 207 H Random Glucose Calcium Phosphorus Magnesium Albumin 01/24/21 01/24/21 01/24/21 14:08 16:00 17:59 WBC RBC Hgb Hct MCV MCH MCHC RDW Plt Count MPV Immature Gran % (Auto) Neut % (Auto) Lymph % (Auto) [place] % (Auto) Eos % (Auto) Baso % (Auto) Lymph # (Auto) [place] # (Auto) Eos # (Auto) Baso # (Auto) Abs Immat Gran (auto) Absolute Neuts (auto) Absolute Nucleated RBC Nucleated RBC % (auto) VBG pH VBG pCO2 VBG pO2 VBG HCO3 VBG O2 Saturation VBG Base Excess Sodium Potassium Chloride Carbon Dioxide Anion Gap BUN Creatinine Estim Creat Clear Calc Estimated GFR POC Glucose 249 H 208 H 171 H Random Glucose Calcium Phosphorus Magnesium Albumin 01/24/21 01/24/21 01/24/21 20:05 21:49 23:52 WBC RBC Hgb Hct MCV MCH MCHC RDW Plt Count MPV Immature Gran % (Auto) Neut % (Auto) Lymph % (Auto) Cecil % (Auto) Eos % (Auto) Baso % (Auto) Lymph # (Auto) Cecil # (Auto) Eos # (Auto) Baso # (Auto) Abs Immat Gran (auto) Absolute Neuts (auto) Absolute Nucleated RBC Nucleated RBC % (auto) VBG pH VBG pCO2 VBG pO2 VBG HCO3 VBG O2 Saturation VBG Base Excess Sodium Potassium Chloride Carbon Dioxide Anion Gap BUN Creatinine Estim Creat Clear Calc Estimated GFR POC Glucose 132 H 85 96 Random Glucose Calcium Phosphorus Magnesium Albumin 01/25/21 01/25/21 01/25/21 03:07 05:27 05:27 WBC 7.2 RBC 2.58 L Hgb 7.1 L Hct 23.4 L MCV 90.7 MCH 27.5 MCHC 30.3 L RDW 15.7 Plt Count 67 L MPV 13.4 H Immature Gran % (Auto) 0.6 H Neut % (Auto) 81.1 H Lymph % (Auto) 12.8 L Cecil % (Auto) 4.2 Eos % (Auto) 1.3 Baso % (Auto) 0.0 Lymph # (Auto) 0.9 L Cecil # (Auto) 0.3 Eos # (Auto) 0.1 Baso # (Auto) 0.0 Abs Immat Gran (auto) 0.04 H Absolute Neuts (auto) 5.8 Absolute Nucleated RBC 0.000 Nucleated RBC % (auto) 0.0 VBG pH VBG pCO2 VBG pO2 VBG HCO3 VBG O2 Saturation VBG Base Excess Sodium 150 H Potassium 3.5 Chloride 115 H Carbon Dioxide 21 L Anion Gap 18 BUN 54 H Creatinine 2.57 H Estim Creat Clear Calc 70.7 Estimated GFR 27 POC Glucose 129 H Random Glucose 172 H Calcium 8.6 D Phosphorus 2.6 L Magnesium 2.1 Albumin 3.2 L D 01/25/21 05:32 WBC RBC Hgb Hct MCV MCH MCHC RDW Plt Count MPV Immature Gran % (Auto) Neut % (Auto) Lymph % (Auto) [place] % (Auto) Eos % (Auto) Baso % (Auto) Lymph # (Auto) Cecil # (Auto) Eos # (Auto) Baso # (Auto) Abs Immat Gran (auto) Absolute Neuts (auto) Absolute Nucleated RBC Nucleated RBC % (auto) VBG pH 7.38 VBG pCO2 33 VBG pO2 47 VBG HCO3 19 L VBG O2 Saturation 74.0 VBG Base Excess -4.5 Sodium Potassium Chloride Carbon Dioxide Anion Gap BUN Creatinine Estim Creat Clear Calc Estimated GFR POC Glucose Random Glucose Calcium Phosphorus Magnesium Albumin Microbiology Microbiology Results: Microbiology 01/22/21 10:29 Blood - Venous Blood Culture - Preliminary No growth after 48 hours. 01/22/21 10:20 Blood - Venous Blood Culture - Preliminary No growth after 48 hours. 01/19/21 08:06 Sputum - Suctioned Gram Stain - Final 01/19/21 08:06 Sputum - Suctioned Sputum Culture - Final Strep agalactiae (Grp B) 01/15/21 05:54 Blood - Central Line Blood Culture - Final No growth after 5 days. 01/15/21 05:54 Blood - Central Line Blood Culture - Final No growth after 5 days. 01/09/21 21:01 Sputum - Suctioned Gram Stain - Final 01/09/21 21:01 Sputum - Suctioned Sputum Culture - Final 01/07/21 05:25 Blood - Venous Blood Culture - Final No growth after 5 days. 01/07/21 05:18 Blood - Venous Blood Culture - Final No growth after 5 days. Assessment & Plan Assessment and plan (1) Thrombocytopenia associated with COVID-19: Status: Acute Assessment and Plan: Assessment: 45-year-old gentleman with multiple medical issues admitted with acute hypoxic respiratory failure secondary to COVID-19 ARDS further complicated by acute on chronic renal failure on the background of peripheral vascular disease and hepatitis-C cirrhosis. Plan: Neuro: No acute issues. Underlying history of CVA, previously on dual antiplatelet therapy, held secondary to recent GI bleed. Cardiac: No acute issues. Underlying history of hypertension. Pulmonary: Acute hypoxic respiratory failure secondary to COVID-19 ARDS requiring ventilatory support. Continue to titrate off as tolerated. Renal: Acute on chronic renal failure , likely multifactorial, appears to be at the new baseline of creatinine of approximately 2.2. Nephrology service care appreciated. Continue to monitor renal indices and urine output. Endo: Hyperglycemia without diabetic ketoacidosis. Continue insulin drip. GI: No acute issues. ID: COVID-19. Completed dexamethasone. Being titrated off Solu-Medrol. Heme/Onc: No acute issues. Psych: No acute issues. Miscellaneous: No acute issues. Prophylaxis: Heparin, ppi Diet: Tube feeds Critical care time spent: 60 minutes (2) Acute respiratory distress syndrome (ARDS) due to COVID-19 virus: Status: Acute (3) Acute on chronic kidney failure: Status: Acute Assessment and Plan: stable CKD close to baseline but rising past few days also high na suggest increase IVF and free h20 (4) Acute respiratory failure with hypoxia: Status: Acute (5) Hepatitis C, chronic: Status: Acute (6) Cirrhosis: Status: Acute (7) Diabetes: Status: Acute (8) Hypertension: Status: Acute (9) Amputated below knee: Status: Acute Procedures Date of Service Date of Service: 01/25/21 Progress Note: Quality Stroke Does the patient have a stroke diagnosis?: No
[2021-01-25 08:00] LABS: SLIDE REVIEW VERIFIED
[2021-01-25 08:11] LABS: Albumin Level 3.2 g/dL (3.5-5.0); Iron 24 mcg/dL (45-160); Percent Iron Saturation 20 % (15-50); Total Iron Binding Capacity 122 mcg/dL (228-428); Unsaturated Iron Binding 98 ug/dL
[2021-01-25] MEDS: Potassium Phosphate 30 MMOL in 0.9 % Sodium Chloride 500 ML 85 MMOL IV (08:11)
[2021-01-25] MEDS: 0.9 % Sodium Chloride Flush 3 ML SYRINGE IVFLUSH ×2 (08:27→15:42)
[2021-01-25 08:29] LABS: Glucose, Whole Blood 206 mg/dL (60-115)
[2021-01-25] MEDS: Dextrose 5 % 1,000 ML 125 ML IVCONT ×2 (08:39→15:38)
[2021-01-25] MEDS: Aspirin 81 MG TAB.CHEW OG-TUBE (08:40)
[2021-01-25] MEDS: Labetalol HCL 100 MG TABLET 300 MG OG-TUBE (08:40)
[2021-01-25] MEDS: Lactulose 20 GM/30 ML SOLUTION OG-TUBE (08:40)
[2021-01-25] MEDS: methylPREDNISolone Sod Succ 125 MG/2 ML VIAL 50 MG IVPUSH (08:40)
[2021-01-25] MEDS: Sodium Bicarbonate 650 MG TABLET PO (08:40)
[2021-01-25] MEDS: Chlorhexidine Gluc Oral Rinse 15 ML MOUTHWASH BUCCAL ×3 (08:40→21:18)
[2021-01-25] MEDS: Sevelamer Carbonate Powder 800 MG POWD.PACK 1600 MG PO (08:42)
[2021-01-25] MEDS: Heparin Sodium,Porcine 5,000 UNIT/ML VIAL 5000 UNIT SUBCUT ×2 (09:56→21:18)
[2021-01-25] MEDS: Insulin Lispro 100 UNIT/ML 3 ML VIAL SUBCUT (10:16)
[2021-01-25 11:55] LABS: Glucose, Whole Blood 241 mg/dL (60-115)
--- NOTE | 2021-01-25 13:39 | P.PNCC_ITS ---
Subjective Subjective Date of Service: 01/25/21 Interval History: 45-year-old gentleman with underlying diabetes mellitus, CKD stage 3, peripheral vascular disease status post bilateral BKA, CVA on dual antiplatelet therapy, hep C cirrhosis, asthma, COVID-19 positive on 01/01/2021, recently hospitalized at [facility] on 01/01/2021 through 01/04/2021 for lower GI bleed, cirrhosis, COVID-19. Patient has had CT chest demonstrated colonic thickening versus mass, however endoscopy/colonoscopy were deferred for 2 weeks for resolution of his COVID symptoms, CT abdomen pelvis from this admission did not redemonstrate any mass or colitis. He has been admitted on 01/07/2021 with progressive hypoxemia requiring high-flow nasal cannula, acute on chronic kidney injury, hyperglycemia, and significant metabolic acidosis. His CT abdomen pelvis was negative colitis or mass. Secondary to refractory hypoxemia patient required intubation on 01/08/2021. Extubated 01/24/2021. Intermittently anxious overnight with poor tolerance of BiPAP. Continues on high-flow 100%. Critical Care Time (minutes): 60 Physical Exam Vital Signs: Vital Signs: Last Vital Signs Temp 99.5 F 01/25/21 13:00 Pulse 114 H 01/25/21 13:32 Resp 35 H 01/25/21 13:00 BP 180/99 H 01/25/21 13:32 Pulse Ox 91 L 01/25/21 13:00 Oxygen Flow Rate 100 01/07/21 05:11 Body Mass Index 62.5 Const: General: no acute distress and lethargic (Arousable) Orientation/consciousness: lethargic (Arousable) Eyes: Sclerae: sclerae normal EOM: EOMs intact bilaterally Neck: Neck: Yes no lymphadenopathy, Yes trachea midline and Yes supple Resp: Effort & Inspection: normal respiratory effort (On high-flow nasal cannula) Auscultation: crackles (Bibasilar) Cardio: Rate: regular rate Rhythm: regular rhythm Heart sounds: no gallops, no murmurs and no rubs GI: Palpation (GI): Soft to palpation and Other GI palpation findings present ( Nontender) Auscultation: normal bowel sounds Extrem: General: No clubbing, No cyanosis and Yes other (Bilateral BKA) Objective Data Labs CBC & Chem 7: 01/25/21 05:27 01/25/21 05:27 Labs: Laboratory Results - last 24 hr 01/24/21 01/24/21 01/24/21 12:03 14:08 16:00 WBC RBC Hgb Hct MCV MCH MCHC RDW Plt Count MPV Immature Gran % (Auto) Neut % (Auto) Lymph % (Auto) [place] % (Auto) Eos % (Auto) Baso % (Auto) Lymph # (Auto) [place] # (Auto) Eos # (Auto) Baso # (Auto) Abs Immat Gran (auto) Absolute Neuts (auto) Absolute Nucleated RBC Nucleated RBC % (auto) Smear Tech's Comments VBG pH VBG pCO2 VBG pO2 VBG HCO3 VBG O2 Saturation VBG Base Excess Sodium Potassium Chloride Carbon Dioxide Anion Gap BUN Creatinine Estim Creat Clear Calc Estimated GFR POC Glucose 207 H 249 H 208 H Random Glucose Calcium Phosphorus Magnesium Iron TIBC % Saturation Unsat Iron Binding Albumin 01/24/21 01/24/21 01/24/21 17:59 20:05 21:49 WBC RBC Hgb Hct MCV MCH MCHC RDW Plt Count MPV Immature Gran % (Auto) Neut % (Auto) Lymph % (Auto) [place] % (Auto) Eos % (Auto) Baso % (Auto) Lymph # (Auto) [place] # (Auto) Eos # (Auto) Baso # (Auto) Abs Immat Gran (auto) Absolute Neuts (auto) Absolute Nucleated RBC Nucleated RBC % (auto) Smear Tech's Comments VBG pH VBG pCO2 VBG pO2 VBG HCO3 VBG O2 Saturation VBG Base Excess Sodium Potassium Chloride Carbon Dioxide Anion Gap BUN Creatinine Estim Creat Clear Calc Estimated GFR POC Glucose 171 H 132 H 85 Random Glucose Calcium Phosphorus Magnesium Iron TIBC % Saturation Unsat Iron Binding Albumin 01/24/21 01/25/21 01/25/21 23:52 03:07 05:27 WBC 7.2 RBC 2.58 L Hgb 7.1 L Hct 23.4 L MCV 90.7 MCH 27.5 MCHC 30.3 L RDW 15.7 Plt Count 67 L MPV 13.4 H Immature Gran % (Auto) 0.6 H Neut % (Auto) 81.1 H Lymph % (Auto) 12.8 L [place] % (Auto) 4.2 Eos % (Auto) 1.3 Baso % (Auto) 0.0 Lymph # (Auto) 0.9 L [place] # (Auto) 0.3 Eos # (Auto) 0.1 Baso # (Auto) 0.0 Abs Immat Gran (auto) 0.04 H Absolute Neuts (auto) 5.8 Absolute Nucleated RBC 0.000 Nucleated RBC % (auto) 0.0 Smear Tech's Comments VERIFIED VBG pH VBG pCO2 VBG pO2 VBG HCO3 VBG O2 Saturation VBG Base Excess Sodium Potassium Chloride Carbon Dioxide Anion Gap BUN Creatinine Estim Creat Clear Calc Estimated GFR POC Glucose 96 129 H Random Glucose Calcium Phosphorus Magnesium Iron TIBC % Saturation Unsat Iron Binding Albumin 01/25/21 01/25/21 01/25/21 05:27 05:32 08:14 WBC RBC Hgb Hct MCV MCH MCHC RDW Plt Count MPV Immature Gran % (Auto) Neut % (Auto) Lymph % (Auto) [place] % (Auto) Eos % (Auto) Baso % (Auto) Lymph # (Auto) [place] # (Auto) Eos # (Auto) Baso # (Auto) Abs Immat Gran (auto) Absolute Neuts (auto) Absolute Nucleated RBC Nucleated RBC % (auto) Smear Tech's Comments VBG pH 7.38 VBG pCO2 33 VBG pO2 47 VBG HCO3 19 L VBG O2 Saturation 74.0 VBG Base Excess -4.5 Sodium 150 H Potassium 3.5 Chloride 115 H Carbon Dioxide 21 L Anion Gap 18 BUN 54 H Creatinine 2.57 H Estim Creat Clear Calc 70.7 Estimated GFR 27 POC Glucose 206 H Random Glucose 172 H Calcium 8.6 D Phosphorus 2.6 L Magnesium 2.1 Iron 24 L TIBC 122 L % Saturation 20 Unsat Iron Binding 98 Albumin 3.2 L D 01/25/21 11:51 WBC RBC Hgb Hct MCV MCH MCHC RDW Plt Count MPV Immature Gran % (Auto) Neut % (Auto) Lymph % (Auto) [place] % (Auto) Eos % (Auto) Baso % (Auto) Lymph # (Auto) [place] # (Auto) Eos # (Auto) Baso # (Auto) Abs Immat Gran (auto) Absolute Neuts (auto) Absolute Nucleated RBC Nucleated RBC % (auto) Smear Tech's Comments VBG pH VBG pCO2 VBG pO2 VBG HCO3 VBG O2 Saturation VBG Base Excess Sodium Potassium Chloride Carbon Dioxide Anion Gap BUN Creatinine Estim Creat Clear Calc Estimated GFR POC Glucose 241 H Random Glucose Calcium Phosphorus Magnesium Iron TIBC % Saturation Unsat Iron Binding Albumin Microbiology Microbiology Results: Microbiology 01/22/21 10:29 Blood - Venous Blood Culture - Preliminary No growth after 48 hours. 01/22/21 10:20 Blood - Venous Blood Culture - Preliminary No growth after 48 hours. 01/19/21 08:06 Sputum - Suctioned Gram Stain - Final 01/19/21 08:06 Sputum - Suctioned Sputum Culture - Final Strep agalactiae (Grp B) 01/15/21 05:54 Blood - Central Line Blood Culture - Final No growth after 5 days. 01/15/21 05:54 Blood - Central Line Blood Culture - Final No growth after 5 days. 01/09/21 21:01 Sputum - Suctioned Gram Stain - Final 01/09/21 21:01 Sputum - Suctioned Sputum Culture - Final 01/07/21 05:25 Blood - Venous Blood Culture - Final No growth after 5 days. 01/07/21 05:18 Blood - Venous Blood Culture - Final No growth after 5 days. Progress Note: A&P Assessment and plan (1) Thrombocytopenia associated with COVID-19: Status: Acute Assessment and Plan: Assessment: 45-year-old gentleman with multiple medical issues admitted with acute hypoxic respiratory failure secondary to COVID-19 ARDS further complicated by acute on chronic renal failure on the background of peripheral vascular disease and hepatitis-C cirrhosis. Plan: Neuro: No acute issues. Underlying history of CVA, previously on dual antiplatelet therapy, held secondary to recent GI bleed. Cardiac: No acute issues. Underlying history of hypertension. Pulmonary: Acute hypoxic respiratory failure secondary to COVID-19 ARDS requiring ventilatory support. Extubated 01/24/2021. Now continues to require 60-100% high-flow supplemental oxygen. Continue to titrate off as tolerated. Renal: Acute on chronic renal failure , likely multifactorial, appears to be at the new baseline of creatinine of approximately 2.2. Nephrology service care appreciated. Continue to monitor renal indices and urine output. Acute hypernatremia, likely secondary to over diuresis, given 2 L of D5W. Endo: Hyperglycemia without diabetic ketoacidosis. Continue insulin drip. GI: No acute issues. ID: COVID-19. Completed dexamethasone. Being titrated off Solu-Medrol. Heme/Onc: No acute issues. Psych: No acute issues. Miscellaneous: No acute issues. Prophylaxis: Heparin, ppi Diet: Pending swallow evaluation Critical care time spent: 60 minutes (2) Acute hypernatremia: Status: Acute (3) Acute respiratory distress syndrome (ARDS) due to COVID-19 virus: Status: Acute (4) Acute on chronic kidney failure: Status: Acute (5) Acute respiratory failure with hypoxia: Status: Acute (6) Hepatitis C, chronic: Status: Acute (7) Cirrhosis: Status: Acute (8) Hypertension: Status: Acute (9) Diabetes: Status: Acute Quality Stroke Does the patient have a stroke diagnosis?: No VTE Prior VTE?: No VTE Risk Level:: Medical - moderate - high VTE Device Contraindication: Treatment Not Indicated VTE Drug Contraindication: N/A - Med Ordered
--- NOTE | 2021-01-25 14:19 | MHC.CLN ---
NUTRITION FOLLOW UP PATIENT EXTUBATED 01/24/21 AND NO LONGER RECEIVING TUBE FEEDING. MD AWARE. CONTINUE TO FOLLOW FOR DIET ADVANCEMENT/NUTRITION SUPPORT.
[2021-01-25 15:10] LABS: Glucose, Whole Blood 289 mg/dL (60-115)
[2021-01-25] MEDS: Insulin Regular/NS 100 UNIT/100 ML PLAST..BAG IVCONT (15:39)
[2021-01-25 17:36] LABS: Glucose, Whole Blood 269 mg/dL (60-115)
[2021-01-25 18:44] LABS: Glucose, Whole Blood 211 mg/dL (60-115)
[2021-01-25] MEDS: propofoL 200 MG/20 ML VIAL 100 MG IVPUSH (19:30)
[2021-01-25] MEDS: Cisatracurium Besylate 20 MG/10 ML VIAL 10 MG IVPUSH ×2 (19:45→20:20)
--- NOTE | 2021-01-25 20:01 | W.PM.CCHP ---
Procedures Date of Service Date of Service: 01/25/21 Intubation Intubation Comments: Patient with acute respiratory distress and unable to clear secretions, requiring emergent intubation for hypoxemia. Patient intubated with 7.5 cuffed ET tube under glide scope guidance with visualization of vocal cords, without immediate complications. ET tube position verified with Chest XRAY. Consent for Procedure: Emergent-no informed consent obtained Time out performed: Yes Sedative: propofol Mg given: 100 ET tube size: 7.5 ET tube uncuffed: No Tube secured depth (cm): 25 Tube secured location: lips Tube placement confirmation: visualized tube passing through cords, equal breath sounds bilaterally, no breath sounds over epigastrium and confirmation by capnometry Patient tolerated procedure: well Intubation complications: none
[2021-01-25 20:22] LABS: ABG Base Excess -2.9 mmol/L; ABG HCO3 22 mmol/L (22-26); ABG pCO2 41 mmHg (32-45); ABG pCO2 TC 42 mmHg (32-45); ABG pH 7.33 (7.35-7.45); ABG pH TC 7.32 (7.35-7.45); ABG pO2 62 mmHg (83-108); ABG pO2 TC 64 (83-108)
[2021-01-25 21:07] LABS: Blood Urea Nitrogen 46 mg/dL (9-16); Calcium 8.3 mg/dL (8.4-10.2); Creatinine Clr Calc Pharmacy 76.3; Estimated Glomerular Filt Rate 30; Glucose Random 191 mg/dL (60-115)
[2021-01-25] MEDS: fentaNYL citrate/NS 1,000 MCG/100 ML PLAST..BAG 5 MCG IVCONT (21:17)
[2021-01-25] MEDS: levoFLOXacin/D5W 750 MG/150 ML PIGGYBACK 100 MG IV (21:18)
[2021-01-25 21:20] LABS: Anion Gap 16 (12-20); Carbon Dioxide 23 mmol/L (22-29); Chloride 116 mmol/L (96-108); Potassium 3.8 mmol/L (3.3-5.1); Sodium 151 mmol/L (135-145)
[2021-01-25] MEDS: propofoL 1,000 MG/100 ML VIAL 66.3 MG IVCONT (21:39)
--- NOTE | 2021-01-25 21:57 | PC.NURSE ---
Assumed care of pt at 1900. At 1920, resp rate started to go up, o2 sat dropped to 87% and pt was minimally responsive. Provider Evon ELLISON notified as well as resp therapy. Pt was intubated at 1930 with #7.5 ETT, 25 cm at the lip. Pt received propofol 100 mg and nimbex 10 mg. OGT inserted. Pcxr done to confirm placement and reviewed by Evon. Propofol drip started. Had to add fentanyl for vent control, and another dose of nimbex 10 mg iv. Vital signs stable. Rhythm is SR-ST, no ectopy. Labs drawn as ordered and reviewed by Evon.
[2021-01-25 23:50] LABS: Glucose, Whole Blood 131 mg/dL (60-115)
[2021-01-26] VITALS (30 sets, daily range): BP systolic 105–158; BP diastolic 56–82; PULSE 88–105; RESP 16–28; TEMP 36.8–38; O2SAT 2–98; BMI 34.0
[2021-01-26] MEDS: propofoL 1,000 MG/100 ML VIAL 53.04 MG IVCONT ×5 (00:07→12:34)
[2021-01-26] MEDS: fentaNYL citrate/NS 1,000 MCG/100 ML PLAST..BAG 20 MCG IVCONT ×5 (00:55→19:33)
[2021-01-26 02:59] LABS: Glucose, Whole Blood 103 mg/dL (60-115)
[2021-01-26 05:37] LABS: Basophils Percent Auto 0.2 % (0-2); Eosinophils Absolute Auto 0.1 X10*3/uL (0.0-0.4); Eosinophils Percent Auto 2.3 % (0-4); Hematocrit 23.5 % (42-52); Hemoglobin 7.1 g/dl (14.0-18.0); Imm Gran Abs Auto 0.03 X10*3/uL (0.00-0.03); Imm Gran Pct Auto 0.5 % (0.0-0.4); Lymphocytes Absolute Auto 0.8 X10*3/uL (1.2-4.9); Lymphocytes Percent Auto 13.5 % (20-40); MANUAL DIFF FLAG SCAN; Mean Corpuscular HGB Conc 30.2 g/dl (31.0-36.0); Mean Corpuscular Hemoglobin 27.8 pg (27.0-33.0); Mean Corpuscular Volume 92.2 fL (80-98); Mean Platelet Volume 13.9 fL (9.4-12.4); Monocytes Absolute Auto 0.3 X10*3/uL (0.1-1.2); Monocytes Percent Auto 4.3 % (2-11); Neutrophils Absolute Auto 4.9 X10*3/uL (2.0-8.3); Neutrophils Percent Auto 79.2 % (45-73); Red Blood Count 2.55 X10*6/uL (4.60-5.80); Red Cell Distribution Width 16.3 % (11.0-16.0); SCAN SMEAR FLAG 1; VBG HCO3 22 mmol/L (22-26); VBG pCO2 38 mmHg; VBG pH 7.35 (7.32-7.43); VBG pO2 50 mmHg; White Blood Count 6.2 X10*3/uL (4.8-10.8)
[2021-01-26 05:38] LABS: Venous Blood Gas Refer to POC result
[2021-01-26 05:41] LABS: PLT ABN DIST 1; Platelet Count 70 X10*3/uL (160-400); SLIDE REVIEW VERIFIED
[2021-01-26 05:45] LABS: Glucose, Whole Blood 144 mg/dL (60-115)
[2021-01-26] MEDS: Pantoprazole Sodium 40 MG/10 ML VIAL IVPUSH (05:49)
[2021-01-26 06:07] LABS: Albumin Level 2.5 g/dL (3.5-5.0); Anion Gap 14 (12-20); Blood Urea Nitrogen 47 mg/dL (9-16); Calcium 8.1 mg/dL (8.4-10.2); Carbon Dioxide 23 mmol/L (22-29); Chloride 116 mmol/L (96-108); Creatinine Clr Calc Pharmacy 75.3; Estimated Glomerular Filt Rate 29; Glucose Random 167 mg/dL (60-115); Magnesium 1.8 mg/dL (1.6-2.6); Phosphorus 4.5 mg/dL (2.7-4.5); Potassium 3.9 mmol/L (3.3-5.1); Sodium 149 mmol/L (135-145)
[2021-01-26] MEDS: methylPREDNISolone Sod Succ 40 MG/ML VIAL IVPUSH (07:20)
[2021-01-26] MEDS: 0.9 % Sodium Chloride Flush 3 ML SYRINGE IVFLUSH ×2 (07:20→16:18)
[2021-01-26] MEDS: Chlorhexidine Gluc Oral Rinse 15 ML MOUTHWASH BUCCAL ×3 (07:20→19:33)
[2021-01-26 07:56] LABS: Glucose, Whole Blood 183 mg/dL (60-115)
--- NOTE | 2021-01-26 07:56 | PM.PNNEP ---
Subjective Subjective Date of Service: 01/26/21 Interval history: 45-year-old gentleman with underlying diabetes mellitus, CKD stage 3, peripheral vascular disease status post bilateral BKA, CVA on dual antiplatelet therapy, hep C cirrhosis, asthma, COVID-19 positive on 01/01/2021, recently hospitalized at [facility] on 01/01/2021 through 01/04/2021 for lower GI bleed, cirrhosis, COVID-19. Patient has had CT chest demonstrated colonic thickening versus mass, however endoscopy/colonoscopy were deferred for 2 weeks for resolution of his COVID symptoms, CT abdomen pelvis from this admission did not redemonstrate any mass or colitis. He has been admitted on 01/07/2021 with progressive hypoxemia requiring high-flow nasal cannula, acute on chronic kidney injury, hyperglycemia, and significant metabolic acidosis. His CT abdomen pelvis was negative colitis or mass. Secondary to refractory hypoxemia patient required intubation on 01/08/2021. Extubated 01/24/2021. Intermittently anxious overnight with poor tolerance of BiPAP. Continues on high-flow 100%. Physical Exam Vital Signs: Vital Signs: Last Vital Signs Temp 98.6 F 01/26/21 05:56 Pulse 93 01/26/21 05:56 Resp 24 H 01/26/21 05:56 BP 112/64 01/26/21 05:56 Pulse Ox 94 01/26/21 05:56 Oxygen Flow Rate 100 01/07/21 05:11 Body Mass Index 34.0 Const: Other: he open his eyes without making eye contact and had a response to command but the but much more weekly so a little bit of coolness to his peripheral extremities but good bilateral carotid upstrokes no gallops no neck vein distension CVP when quiet and balanced at about 5-6 and that is relatively unchanged remaining in sinus tachycardia and BUN and creatinine actually have decreased to the lowest levels of 60/2.2 metabolically comfortable no change in white count or left shift but progressively worsening thrombocytopenia for which I stop the heparin and obtain the heparin induced platelet antibody General: no acute distress, alert, awake, anxious, lethargic (Arousable) and other (Sedated on the vent, follows some commands with sedation vacation) Nutritional Appearance: obese Orientation/consciousness: lethargic (Arousable) Eyes: Sclerae: sclerae normal EOM: EOMs intact bilaterally Neck: Neck: Yes no lymphadenopathy, Yes trachea midline and Yes supple Resp: Effort & Inspection: normal respiratory effort (On high-flow nasal cannula) and no respiratory distress Auscultation: clear to auscultation bilaterally, crackles (Bibasilar) and rhonchi Cardio: Rate: regular rate and tachycardic Rhythm: regular rhythm Heart sounds: no gallops, no murmurs and no rubs GI: Inspection: Yes normal to inspection Palpation (GI): Soft to palpation and Other GI palpation findings present ( Nontender) Auscultation: normal bowel sounds Extrem: General: No clubbing, No cyanosis and Yes other (Bilateral BKA) Objective Data Labs CBC & Chem 7: 01/26/21 05:30 01/26/21 05:30 Labs: Laboratory Results - last 24 hr 01/25/21 01/25/21 01/25/21 05:27 05:27 08:14 WBC RBC Hgb Hct MCV MCH MCHC RDW Plt Count MPV Immature Gran % (Auto) Neut % (Auto) Lymph % (Auto) [place] % (Auto) Eos % (Auto) Baso % (Auto) Lymph # (Auto) [place] # (Auto) Eos # (Auto) Baso # (Auto) Abs Immat Gran (auto) Absolute Neuts (auto) Absolute Nucleated RBC Nucleated RBC % (auto) Smear Tech's Comments VERIFIED O2 Saturation ABG pH at Pt Temp ABG pH (Temp Correct) ABG pCO2 at Pt Temp ABG pCO2 (Temp Corrct ABG pO2 at Pt Temp ABG pO2 (Temp Correct ABG HCO3 ABG Base Excess (Actual) VBG pH VBG pCO2 VBG pO2 VBG HCO3 VBG O2 Saturation VBG Base Excess Sodium Potassium Chloride Carbon Dioxide Anion Gap BUN Creatinine Estim Creat Clear Calc Estimated GFR POC Glucose 206 H Random Glucose Calcium Phosphorus Magnesium Iron 24 L TIBC 122 L % Saturation 20 Unsat Iron Binding 98 Albumin 3.2 L D 01/25/21 01/25/21 01/25/21 11:51 15:06 17:32 WBC RBC Hgb Hct MCV MCH MCHC RDW Plt Count MPV Immature Gran % (Auto) Neut % (Auto) Lymph % (Auto) [place] % (Auto) Eos % (Auto) Baso % (Auto) Lymph # (Auto) [place] # (Auto) Eos # (Auto) Baso # (Auto) Abs Immat Gran (auto) Absolute Neuts (auto) Absolute Nucleated RBC Nucleated RBC % (auto) Smear Tech's Comments O2 Saturation ABG pH at Pt Temp ABG pH (Temp Correct) ABG pCO2 at Pt Temp ABG pCO2 (Temp Corrct ABG pO2 at Pt Temp ABG pO2 (Temp Correct ABG HCO3 ABG Base Excess (Actual) VBG pH VBG pCO2 VBG pO2 VBG HCO3 VBG O2 Saturation VBG Base Excess Sodium Potassium Chloride Carbon Dioxide Anion Gap BUN Creatinine Estim Creat Clear Calc Estimated GFR POC Glucose 241 H 289 H 269 H Random Glucose Calcium Phosphorus Magnesium Iron TIBC % Saturation Unsat Iron Binding Albumin 01/25/21 01/25/21 01/25/21 18:32 20:15 20:22 WBC RBC Hgb Hct MCV MCH MCHC RDW Plt Count MPV Immature Gran % (Auto) Neut % (Auto) Lymph % (Auto) [place] % (Auto) Eos % (Auto) Baso % (Auto) Lymph # (Auto) [place] # (Auto) Eos # (Auto) Baso # (Auto) Abs Immat Gran (auto) Absolute Neuts (auto) Absolute Nucleated RBC Nucleated RBC % (auto) Smear Tech's Comments O2 Saturation 85.0 ABG pH at Pt Temp 7.33 L ABG pH (Temp Correct) 7.32 L ABG pCO2 at Pt Temp 41 ABG pCO2 (Temp Corrct 42 ABG pO2 at Pt Temp 62 L ABG pO2 (Temp Correct 64 L ABG HCO3 22 ABG Base Excess (Actual) -2.9 VBG pH VBG pCO2 VBG pO2 VBG HCO3 VBG O2 Saturation VBG Base Excess Sodium 151 H Potassium 3.8 Chloride 116 H Carbon Dioxide 23 Anion Gap 16 BUN 46 H Creatinine 2.38 H Estim Creat Clear Calc 76.3 Estimated GFR 30 POC Glucose 211 H Random Glucose 191 H Calcium 8.3 L Phosphorus Magnesium Iron TIBC % Saturation Unsat Iron Binding Albumin 01/25/21 01/26/21 01/26/21 23:44 02:42 05:30 WBC 6.2 RBC 2.55 L Hgb 7.1 L Hct 23.5 L MCV 92.2 MCH 27.8 MCHC 30.2 L RDW 16.3 H Plt Count 70 L MPV 13.9 H Immature Gran % (Auto) 0.5 H Neut % (Auto) 79.2 H Lymph % (Auto) 13.5 L [place] % (Auto) 4.3 Eos % (Auto) 2.3 Baso % (Auto) 0.2 Lymph # (Auto) 0.8 L [place] # (Auto) 0.3 Eos # (Auto) 0.1 Baso # (Auto) 0.0 Abs Immat Gran (auto) 0.03 Absolute Neuts (auto) 4.9 Absolute Nucleated RBC 0.000 Nucleated RBC % (auto) 0.0 Smear Tech's Comments VERIFIED O2 Saturation ABG pH at Pt Temp ABG pH (Temp Correct) ABG pCO2 at Pt Temp ABG pCO2 (Temp Corrct ABG pO2 at Pt Temp ABG pO2 (Temp Correct ABG HCO3 ABG Base Excess (Actual) VBG pH VBG pCO2 VBG pO2 VBG HCO3 VBG O2 Saturation VBG Base Excess Sodium Potassium Chloride Carbon Dioxide Anion Gap BUN Creatinine Estim Creat Clear Calc Estimated GFR POC Glucose 131 H 103 Random Glucose Calcium Phosphorus Magnesium Iron TIBC % Saturation Unsat Iron Binding Albumin 01/26/21 01/26/21 01/26/21 05:30 05:30 05:30 WBC RBC Hgb Hct MCV MCH MCHC RDW Plt Count MPV Immature Gran % (Auto) Neut % (Auto) Lymph % (Auto) [place] % (Auto) Eos % (Auto) Baso % (Auto) Lymph # (Auto) [place] # (Auto) Eos # (Auto) Baso # (Auto) Abs Immat Gran (auto) Absolute Neuts (auto) Absolute Nucleated RBC Nucleated RBC % (auto) Smear Tech's Comments O2 Saturation ABG pH at Pt Temp ABG pH (Temp Correct) ABG pCO2 at Pt Temp ABG pCO2 (Temp Corrct ABG pO2 at Pt Temp ABG pO2 (Temp Correct ABG HCO3 ABG Base Excess (Actual) VBG pH 7.35 VBG pCO2 38 VBG pO2 50 VBG HCO3 22 VBG O2 Saturation 77.0 VBG Base Excess -3.0 Sodium 149 H Potassium 3.9 Chloride 116 H Carbon Dioxide 23 Anion Gap 14 BUN 47 H Creatinine 2.41 H Estim Creat Clear Calc 75.3 Estimated GFR 29 POC Glucose 144 H Random Glucose 167 H Calcium 8.1 L Phosphorus 4.5 Magnesium 1.8 Iron TIBC % Saturation Unsat Iron Binding Albumin 2.5 L D Microbiology Microbiology Results: Microbiology 01/22/21 10:29 Blood - Venous Blood Culture - Preliminary No growth after 48 hours. 01/22/21 10:20 Blood - Venous Blood Culture - Preliminary No growth after 48 hours. 01/19/21 08:06 Sputum - Suctioned Gram Stain - Final 01/19/21 08:06 Sputum - Suctioned Sputum Culture - Final Strep agalactiae (Grp B) 01/15/21 05:54 Blood - Central Line Blood Culture - Final No growth after 5 days. 01/15/21 05:54 Blood - Central Line Blood Culture - Final No growth after 5 days. 01/09/21 21:01 Sputum - Suctioned Gram Stain - Final 01/09/21 21:01 Sputum - Suctioned Sputum Culture - Final 01/07/21 05:25 Blood - Venous Blood Culture - Final No growth after 5 days. 01/07/21 05:18 Blood - Venous Blood Culture - Final No growth after 5 days. Assessment & Plan Assessment and plan (1) Acute hypernatremia: Status: Acute Assessment and Plan: continue to needs increased free h20 replacement (2) Acute on chronic kidney failure: Status: Acute Assessment and Plan: stable CKD from presumed DM nephropathy nephrotic range proteinuria (3) Hepatitis C, chronic: Status: Acute (4) Cirrhosis: Status: Acute (5) Hypertension: Status: Acute (6) Diabetes: Status: Acute Time Spent With Patient Time: Total time spent is greater than 50% in coordination of care (as documented) at patient's floor/unit and/or counseling patient: Procedures Date of Service Date of Service: 01/26/21 Progress Note: Quality Stroke Does the patient have a stroke diagnosis?: No
[2021-01-26] MEDS: Magnesium Sulfate/H2O 2 GM/50 ML PIGGYBACK IV (09:36)
[2021-01-26 10:09] LABS: Glucose, Whole Blood 239 mg/dL (60-115)
--- NOTE | 2021-01-26 11:14 | PM.CCPN ---
Subjective Subjective Date of Service: 01/26/21 Interval History: 45-year-old gentleman with underlying diabetes mellitus, CKD stage 3, peripheral vascular disease status post bilateral BKA, CVA on dual antiplatelet therapy, hep C cirrhosis, asthma, COVID-19 positive on 01/01/2021, recently hospitalized at [facility] on 01/01/2021 through 01/04/2021 for lower GI bleed, cirrhosis, COVID-19. Patient has had CT chest demonstrated colonic thickening versus mass, however endoscopy/colonoscopy were deferred for 2 weeks for resolution of his COVID symptoms, CT abdomen pelvis from this admission did not redemonstrate any mass or colitis. He has been admitted on 01/07/2021 with progressive hypoxemia requiring high-flow nasal cannula, acute on chronic kidney injury, hyperglycemia, and significant metabolic acidosis. His CT abdomen pelvis was negative colitis or mass. Secondary to refractory hypoxemia patient required intubation on 01/08/2021. Extubated 01/24/2021, but required re-intubation on 01/25/2021 secondary to acute hypoxia secondary to recurrent aspirations. Being planned for tracheostomy and parenteral gastrostomy A required re-intubation overnight secondary to progressive hypoxemia from recurrent aspirations secondary to poor cough and general muscle weakness. Critical Care Time (minutes): 60 Physical Exam Vital Signs: Vital Signs: Last Vital Signs Temp 98.6 F 01/26/21 10:00 Pulse 93 01/26/21 10:00 Resp 20 01/26/21 10:00 BP 143/78 H 01/26/21 10:00 Pulse Ox 92 01/26/21 10:00 Oxygen Flow Rate 100 01/07/21 05:11 Body Mass Index 34.0 Const: General: no acute distress and other (Sedated on the vent) Eyes: Sclerae: sclerae normal EOM: EOMs intact bilaterally Neck: Neck: Yes no lymphadenopathy, Yes trachea midline and Yes supple Resp: Effort & Inspection: normal respiratory effort and no respiratory distress Auscultation: clear to auscultation bilaterally Cardio: Rate: regular rate Rhythm: regular rhythm Heart sounds: no gallops, no murmurs and no rubs GI: Palpation (GI): Soft to palpation and Other GI palpation findings present ( Nontender) Auscultation: normal bowel sounds Extrem: General: No clubbing, No cyanosis and Yes other (Bilateral BKA) Objective Data Labs CBC & Chem 7: 01/26/21 05:30 01/26/21 05:30 Labs: Laboratory Results - last 24 hr 01/25/21 01/25/21 01/25/21 11:51 15:06 17:32 WBC RBC Hgb Hct MCV MCH MCHC RDW Plt Count MPV Immature Gran % (Auto) Neut % (Auto) Lymph % (Auto) [place] % (Auto) Eos % (Auto) Baso % (Auto) Lymph # (Auto) [place] # (Auto) Eos # (Auto) Baso # (Auto) Abs Immat Gran (auto) Absolute Neuts (auto) Absolute Nucleated RBC Nucleated RBC % (auto) Smear Tech's Comments O2 Saturation ABG pH at Pt Temp ABG pH (Temp Correct) ABG pCO2 at Pt Temp ABG pCO2 (Temp Corrct ABG pO2 at Pt Temp ABG pO2 (Temp Correct ABG HCO3 ABG Base Excess (Actual) VBG pH VBG pCO2 VBG pO2 VBG HCO3 VBG O2 Saturation VBG Base Excess Sodium Potassium Chloride Carbon Dioxide Anion Gap BUN Creatinine Estim Creat Clear Calc Estimated GFR POC Glucose 241 H 289 H 269 H Random Glucose Calcium Phosphorus Magnesium Albumin 01/25/21 01/25/21 01/25/21 18:32 20:15 20:22 WBC RBC Hgb Hct MCV MCH MCHC RDW Plt Count MPV Immature Gran % (Auto) Neut % (Auto) Lymph % (Auto) [place] % (Auto) Eos % (Auto) Baso % (Auto) Lymph # (Auto) [place] # (Auto) Eos # (Auto) Baso # (Auto) Abs Immat Gran (auto) Absolute Neuts (auto) Absolute Nucleated RBC Nucleated RBC % (auto) Smear Tech's Comments O2 Saturation 85.0 ABG pH at Pt Temp 7.33 L ABG pH (Temp Correct) 7.32 L ABG pCO2 at Pt Temp 41 ABG pCO2 (Temp Corrct 42 ABG pO2 at Pt Temp 62 L ABG pO2 (Temp Correct 64 L ABG HCO3 22 ABG Base Excess (Actual) -2.9 VBG pH VBG pCO2 VBG pO2 VBG HCO3 VBG O2 Saturation VBG Base Excess Sodium 151 H Potassium 3.8 Chloride 116 H Carbon Dioxide 23 Anion Gap 16 BUN 46 H Creatinine 2.38 H Estim Creat Clear Calc 76.3 Estimated GFR 30 POC Glucose 211 H Random Glucose 191 H Calcium 8.3 L Phosphorus Magnesium Albumin 01/25/21 01/26/21 01/26/21 23:44 02:42 05:30 WBC 6.2 RBC 2.55 L Hgb 7.1 L Hct 23.5 L MCV 92.2 MCH 27.8 MCHC 30.2 L RDW 16.3 H Plt Count 70 L MPV 13.9 H Immature Gran % (Auto) 0.5 H Neut % (Auto) 79.2 H Lymph % (Auto) 13.5 L [place] % (Auto) 4.3 Eos % (Auto) 2.3 Baso % (Auto) 0.2 Lymph # (Auto) 0.8 L [place] # (Auto) 0.3 Eos # (Auto) 0.1 Baso # (Auto) 0.0 Abs Immat Gran (auto) 0.03 Absolute Neuts (auto) 4.9 Absolute Nucleated RBC 0.000 Nucleated RBC % (auto) 0.0 Smear Tech's Comments VERIFIED O2 Saturation ABG pH at Pt Temp ABG pH (Temp Correct) ABG pCO2 at Pt Temp ABG pCO2 (Temp Corrct ABG pO2 at Pt Temp ABG pO2 (Temp Correct ABG HCO3 ABG Base Excess (Actual) VBG pH VBG pCO2 VBG pO2 VBG HCO3 VBG O2 Saturation VBG Base Excess Sodium Potassium Chloride Carbon Dioxide Anion Gap BUN Creatinine Estim Creat Clear Calc Estimated GFR POC Glucose 131 H 103 Random Glucose Calcium Phosphorus Magnesium Albumin 01/26/21 01/26/21 01/26/21 05:30 05:30 05:30 WBC RBC Hgb Hct MCV MCH MCHC RDW Plt Count MPV Immature Gran % (Auto) Neut % (Auto) Lymph % (Auto) [place] % (Auto) Eos % (Auto) Baso % (Auto) Lymph # (Auto) [place] # (Auto) Eos # (Auto) Baso # (Auto) Abs Immat Gran (auto) Absolute Neuts (auto) Absolute Nucleated RBC Nucleated RBC % (auto) Smear Tech's Comments O2 Saturation ABG pH at Pt Temp ABG pH (Temp Correct) ABG pCO2 at Pt Temp ABG pCO2 (Temp Corrct ABG pO2 at Pt Temp ABG pO2 (Temp Correct ABG HCO3 ABG Base Excess (Actual) VBG pH 7.35 VBG pCO2 38 VBG pO2 50 VBG HCO3 22 VBG O2 Saturation 77.0 VBG Base Excess -3.0 Sodium 149 H Potassium 3.9 Chloride 116 H Carbon Dioxide 23 Anion Gap 14 BUN 47 H Creatinine 2.41 H Estim Creat Clear Calc 75.3 Estimated GFR 29 POC Glucose 144 H Random Glucose 167 H Calcium 8.1 L Phosphorus 4.5 Magnesium 1.8 Albumin 2.5 L D 01/26/21 01/26/21 07:27 10:03 WBC RBC Hgb Hct MCV MCH MCHC RDW Plt Count MPV Immature Gran % (Auto) Neut % (Auto) Lymph % (Auto) [place] % (Auto) Eos % (Auto) Baso % (Auto) Lymph # (Auto) [place] # (Auto) Eos # (Auto) Baso # (Auto) Abs Immat Gran (auto) Absolute Neuts (auto) Absolute Nucleated RBC Nucleated RBC % (auto) Smear Tech's Comments O2 Saturation ABG pH at Pt Temp ABG pH (Temp Correct) ABG pCO2 at Pt Temp ABG pCO2 (Temp Corrct ABG pO2 at Pt Temp ABG pO2 (Temp Correct ABG HCO3 ABG Base Excess (Actual) VBG pH VBG pCO2 VBG pO2 VBG HCO3 VBG O2 Saturation VBG Base Excess Sodium Potassium Chloride Carbon Dioxide Anion Gap BUN Creatinine Estim Creat Clear Calc Estimated GFR POC Glucose 183 H 239 H Random Glucose Calcium Phosphorus Magnesium Albumin Microbiology Microbiology Results: Microbiology 01/22/21 10:29 Blood - Venous Blood Culture - Preliminary No growth after 48 hours. 01/22/21 10:20 Blood - Venous Blood Culture - Preliminary No growth after 48 hours. 01/19/21 08:06 Sputum - Suctioned Gram Stain - Final 01/19/21 08:06 Sputum - Suctioned Sputum Culture - Final Strep agalactiae (Grp B) 01/15/21 05:54 Blood - Central Line Blood Culture - Final No growth after 5 days. 01/15/21 05:54 Blood - Central Line Blood Culture - Final No growth after 5 days. 01/09/21 21:01 Sputum - Suctioned Gram Stain - Final 01/09/21 21:01 Sputum - Suctioned Sputum Culture - Final 01/07/21 05:25 Blood - Venous Blood Culture - Final No growth after 5 days. 01/07/21 05:18 Blood - Venous Blood Culture - Final No growth after 5 days. Progress Note: A&P Assessment and plan (1) Thrombocytopenia associated with COVID-19: Status: Acute Assessment and Plan: Assessment: 45-year-old gentleman with multiple medical issues admitted with acute hypoxic respiratory failure secondary to COVID-19 ARDS further complicated by acute on chronic renal failure on the background of peripheral vascular disease and hepatitis-C cirrhosis. Plan: Neuro: No acute issues. Underlying history of CVA, previously on dual antiplatelet therapy, held secondary to recent GI bleed. Cardiac: No acute issues. Underlying history of hypertension. Pulmonary: Acute hypoxic respiratory failure secondary to COVID-19 ARDS requiring ventilatory support. Extubated 01/24/2021 required re-intubation on 01/25 secondary to recurrent aspirations. Now being planned for tracheostomy and parenteral gastrostomy. Renal: Acute on chronic renal failure , likely multifactorial, appears to be at the new baseline of creatinine of approximately 2.2. Nephrology service care appreciated. Continue to monitor renal indices and urine output. Endo: Hyperglycemia without diabetic ketoacidosis. Continue insulin drip. GI: No acute issues. ID: [id number]. Completed dexamethasone. Being titrated off Solu-Medrol. Heme/Onc: No acute issues. Psych: No acute issues. Miscellaneous: No acute issues. Prophylaxis: Heparin, ppi Diet: Tube feeds Critical care time spent: 60 minutes (2) Acute respiratory distress syndrome (ARDS) due to COVID-19 virus: Status: Acute (3) Acute respiratory failure with hypoxia: Status: Acute (4) Hepatitis C, chronic: Status: Acute (5) Cirrhosis: Status: Acute (6) Hypertension: Status: Acute (7) Diabetes: Status: Acute (8) Pulmonary aspiration: Status: Acute Quality Stroke Does the patient have a stroke diagnosis?: No VTE Prior VTE?: No VTE Risk Level:: Medical - moderate - high VTE Device Contraindication: Treatment Not Indicated VTE Drug Contraindication: N/A - Med Ordered
[2021-01-26 11:26] LABS: Creatinine Urine 58.15 mg/dL
[2021-01-26 12:08] LABS: Glucose, Whole Blood 301 mg/dL (60-115)
[2021-01-26] MEDS: Heparin Sodium,Porcine 5,000 UNIT/ML VIAL 5000 UNIT SUBCUT ×2 (12:32→19:34)
[2021-01-26] MEDS: Insulin Regular/NS 100 UNIT/100 ML PLAST..BAG IVCONT (12:33)
--- NOTE | 2021-01-26 12:33 | MHC.CLN ---
F/U PT RE-INTUBATED AND SEDATED RECOMMEND CHANGE TF TO NEPRO AT MAX GOAL RATE 15ML/HR WITH 30ML PROSOURCE TID VIA OGT AND 300ML FREE WATER FLUSHES Q 6HRS TO PROVIDE 828KCALS (2101KCALS TOTAL WITH SEDATION; 28KCALS/KG BASED ON IBW), 74G PROTEIN (1.0G/KG), 1462CC TOTAL WATER FROM FORMULA AND FLUSHES (20ML/KG BASED ON IBW) MONITOR TOLERANCE, RESIDUALS AND LYTES
[2021-01-26 14:14] LABS: Glucose, Whole Blood 277 mg/dL (60-115)
[2021-01-26] MEDS: propofoL 1,000 MG/100 ML VIAL 66.3 MG IVCONT (14:59)
[2021-01-26 16:05] LABS: Glucose, Whole Blood 266 mg/dL (60-115)
--- NOTE | 2021-01-26 16:05 | MHC.CM.PN ---
Patient remains in ICU. Retintubated 01/25 and on vent. No HCP found on file or at [facility]. Waiting to hear from [facility] if they have a HCP. Continue to monitor for d/c needs.
--- NOTE | 2021-01-26 16:35 | PC.NURSE ---
Addendum entered by Elinor Gonzalez RN 01/26/21 17:01: New order for Propofol due to weight error in markedup, drip currently running with of 120kg. Original Note: Approaching 24hrs post re-intubation. Sedated on Fentanyl and Propofol, both at MAX for cooperation with vent. Bilaterally restrained at he wrists. (+) cough/gag Low grade temps today, Max 100.4 ABTx of Levaquin changed to daily for question of aspiration. Mag 1.8 today, replaced with 2g IV. All other scheduled meds as ordered. Vent settings AC 20/ Vt 500/ FiO2 weaned from 80% to 60% and PEEP increased from 5 to 8. Lungs progressed to just diminished, no secretions inline this afternoon. SpO2 maintaining 92% and better. Tube feeds restarted today and have reached goal rate. Insulin drip per protocol. Skin remains intact. Repositioned q2hrs, skin care provided. Oral care per Vent bundle protocol. Wedges and pillows used for repositioning and pressure relief. Family updated by MD and RN.
[2021-01-26] MEDS: propofoL 1,000 MG/100 ML VIAL 36 MG IVCONT ×3 (17:06→22:14)
[2021-01-26 18:15] LABS: Glucose, Whole Blood 201 mg/dL (60-115)
[2021-01-26 20:07] LABS: Glucose, Whole Blood 168 mg/dL (60-115)
[2021-01-26] MEDS: levoFLOXacin/D5W 750 MG/150 ML PIGGYBACK 100 MG IV (22:14)
[2021-01-26 23:21] LABS: Glucose, Whole Blood 144 mg/dL (60-115)
[2021-01-27] VITALS (34 sets, daily range): BP systolic 126–184; BP diastolic 60–88; PULSE 87–105; RESP 14–25; TEMP 36.4–37.6; O2SAT 89–97; BMI 33.3
[2021-01-27 00:04] LABS: Glucose, Whole Blood 137 mg/dL (60-115)
[2021-01-27] MEDS: propofoL 1,000 MG/100 ML VIAL 36 MG IVCONT ×10 (00:41→23:43)
[2021-01-27] MEDS: fentaNYL citrate/NS 1,000 MCG/100 ML PLAST..BAG 20 MCG IVCONT ×6 (00:43→23:43)
[2021-01-27 02:29] LABS: Glucose, Whole Blood 119 mg/dL (60-115)
[2021-01-27] MEDS: 0.9 % Sodium Chloride Flush 3 ML SYRINGE IVFLUSH ×3 (04:48→16:37)
[2021-01-27] MEDS: Insulin Regular/NS 100 UNIT/100 ML PLAST..BAG IVCONT (05:14)
[2021-01-27] MEDS: Pantoprazole Sodium 40 MG/10 ML VIAL IVPUSH (05:17)
[2021-01-27 05:31] LABS: VBG Base Excess -2.7 mmol/L; VBG HCO3 22 mmol/L (22-26); VBG pCO2 38 mmHg; VBG pH 7.36 (7.32-7.43); VBG pO2 44 mmHg
[2021-01-27 05:34] LABS: Venous Blood Gas Refer to POC result
[2021-01-27 05:43] LABS: Glucose, Whole Blood 91 mg/dL (60-115)
[2021-01-27 05:51] LABS: Eosinophils Absolute Auto 0.2 X10*3/uL (0.0-0.4); Eosinophils Percent Auto 3.6 % (0-4); Imm Gran Abs Auto 0.05 X10*3/uL (0.00-0.03); Imm Gran Pct Auto 0.9 % (0.0-0.4); MANUAL DIFF FLAG SCAN; Mean Corpuscular Hemoglobin 27.4 pg (27.0-33.0); NRBC Pct Auto 0.3 /100WBC (0.0-0.2); Red Blood Count 2.48 X10*6/uL (4.60-5.80); SCAN SMEAR FLAG 1
[2021-01-27 05:53] LABS: Hematocrit 22.8 % (42-52); Lymphocytes Percent Auto 16.4 % (20-40); Mean Corpuscular HGB Conc 29.8 g/dl (31.0-36.0); Mean Corpuscular Volume 91.9 fL (80-98); Mean Platelet Volume 14.2 fL (9.4-12.4); Monocytes Absolute Auto 0.3 X10*3/uL (0.1-1.2); Monocytes Percent Auto 4.9 % (2-11); Neutrophils Absolute Auto 4.4 X10*3/uL (2.0-8.3); Neutrophils Percent Auto 74.2 % (45-73); Red Cell Distribution Width 16.3 % (11.0-16.0); White Blood Count 5.9 X10*3/uL (4.8-10.8)
[2021-01-27 05:58] LABS: PLT ABN DIST 1; Platelet Count 79 X10*3/uL (160-400)
[2021-01-27 06:01] LABS: Hemoglobin 6.8 g/dl (14.0-18.0)
[2021-01-27 06:02] LABS: SLIDE REVIEW VERIFIED
[2021-01-27 06:05] LABS: Albumin Level 2.3 g/dL (3.5-5.0); Anion Gap 12 (12-20); Blood Urea Nitrogen 66 mg/dL (9-16); Carbon Dioxide 24 mmol/L (22-29); Chloride 115 mmol/L (96-108); Creatinine Clr Calc Pharmacy 41.6; Estimated Glomerular Filt Rate 22; Glucose Random 99 mg/dL (60-115); Magnesium 2.2 mg/dL (1.6-2.6); Phosphorus 5.1 mg/dL (2.7-4.5); Potassium 3.9 mmol/L (3.3-5.1); Sodium 147 mmol/L (135-145)
--- NOTE | 2021-01-27 07:45 | P.PNNP_ITS ---
Subjective Subjective Date of Service: 01/27/21 Interval history: 45-year-old gentleman with underlying diabetes mellitus, CKD stage 3, peripheral vascular disease status post bilateral BKA, CVA on dual antiplatelet therapy, hep C cirrhosis, asthma, COVID-19 positive on 01/01/2021, recently hospitalized at [facility] on 01/01/2021 through 01/04/2021 for lower GI bleed, cirrhosis, COVID-19. Patient has had CT chest demonstrated colonic thickening versus mass, however endoscopy/colonoscopy were deferred for 2 weeks for resolution of his COVID symptoms, CT abdomen pelvis from this admission did not redemonstrate any mass or colitis. He has been admitted on 01/07/2021 with progressive hypoxemia requiring high-flow nasal cannula, acute on chronic kidney injury, hyperglycemia, and significant metabolic acidosis. His CT abdomen pelvis was negative colitis or mass. Secondary to refractory hypoxemia patient required intubation on 01/08/2021. Extubated 01/24/2021, but required re-intubation on 01/25/2021 secondary to acute hypoxia secondary to recurrent aspirations. Being planned for tracheostomy and parenteral gastrostomy A required re-intubation overnight secondary to progressive hypoxemia from recurrent aspirations secondary to poor cough and general muscle weakness. Physical Exam Vital Signs: Vital Signs: Last Vital Signs Temp 98.6 F 01/27/21 07:00 Pulse 89 01/27/21 07:00 Resp 20 01/27/21 07:00 BP 140/73 H 01/27/21 07:00 Pulse Ox 94 01/27/21 07:00 Oxygen Flow Rate 100 01/07/21 05:11 Body Mass Index 33.3 Const: Other: he open his eyes without making eye contact and had a response to command but the but much more weekly so a little bit of coolness to his peripheral extremities but good bilateral carotid upstrokes no gallops no neck vein distension CVP when quiet and balanced at about 5-6 and that is relatively unchanged remaining in sinus tachycardia and BUN and creatinine actually have decreased to the lowest levels of 60/2.2 metabolically comfortable no change in white count or left shift but progressively worsening thrombocytopenia for which I stop the heparin and obtain the heparin induced platelet antibody General: no acute distress, alert, awake, anxious, lethargic (Arousable) and other (Sedated on the vent) Nutritional Appearance: obese Orientation/consciousness: lethargic (Arousable) Eyes: Sclerae: sclerae normal EOM: EOMs intact bilaterally Neck: Neck: Yes no lymphadenopathy, Yes trachea midline and Yes supple Resp: Effort & Inspection: normal respiratory effort and no respiratory dist ress Auscultation: clear to auscultation bilaterally, crackles (Bibasilar) and rhonchi Cardio: Rate: regular rate and tachycardic Rhythm: regular rhythm Heart sounds: no gallops, no murmurs and no rubs GI: Inspection: Yes normal to inspection Palpation (GI): Soft to palpation and Other GI palpation findings present ( Nontender) Auscultation: normal bowel sounds Extrem: General: No clubbing, No cyanosis and Yes other (Bilateral BKA) Objective Data Labs CBC & Chem 7: 01/27/21 05:21 01/27/21 05:21 Labs: Laboratory Results - last 24 hr 01/26/21 01/26/21 01/26/21 07:27 10:03 10:47 WBC RBC Hgb Hct MCV MCH MCHC RDW Plt Count MPV Immature Gran % (Auto) Neut % (Auto) Lymph % (Auto) [place] % (Auto) Eos % (Auto) Baso % (Auto) Lymph # (Auto) [place] # (Auto) Eos # (Auto) Baso # (Auto) Abs Immat Gran (auto) Absolute Neuts (auto) Absolute Nucleated RBC Nucleated RBC % (auto) Smear Tech's Comments VBG pH VBG pCO2 VBG pO2 VBG HCO3 VBG O2 Saturation VBG Base Excess Sodium Potassium Chloride Carbon Dioxide Anion Gap BUN Creatinine Estim Creat Clear Calc Estimated GFR POC Glucose 183 H 239 H Random Glucose Calcium Phosphorus Magnesium Albumin Urine Creatinine 58.15 Urine Microalbumin 4728.0 Microalb/Creat Ratio 8130.6 Blood Type Antibody Screen Crossmatch 01/26/21 01/26/21 01/26/21 12:03 14:08 15:59 WBC RBC Hgb Hct MCV MCH MCHC RDW Plt Count MPV Immature Gran % (Auto) Neut % (Auto) Lymph % (Auto) [place] % (Auto) Eos % (Auto) Baso % (Auto) Lymph # (Auto) [place] # (Auto) Eos # (Auto) Baso # (Auto) Abs Immat Gran (auto) Absolute Neuts (auto) Absolute Nucleated RBC Nucleated RBC % (auto) Smear Tech's Comments VBG pH VBG pCO2 VBG pO2 VBG HCO3 VBG O2 Saturation VBG Base Excess Sodium Potassium Chloride Carbon Dioxide Anion Gap BUN Creatinine Estim Creat Clear Calc Estimated GFR POC Glucose 301 H 277 H 266 H Random Glucose Calcium Phosphorus Magnesium Albumin Urine Creatinine Urine Microalbumin Microalb/Creat Ratio Blood Type Antibody Screen Crossmatch 01/26/21 01/26/21 01/26/21 18:08 19:53 22:04 WBC RBC Hgb Hct MCV MCH MCHC RDW Plt Count MPV Immature Gran % (Auto) Neut % (Auto) Lymph % (Auto) [place] % (Auto) Eos % (Auto) Baso % (Auto) Lymph # (Auto) [place] # (Auto) Eos # (Auto) Baso # (Auto) Abs Immat Gran (auto) Absolute Neuts (auto) Absolute Nucleated RBC Nucleated RBC % (auto) Smear Tech's Comments VBG pH VBG pCO2 VBG pO2 VBG HCO3 VBG O2 Saturation VBG Base Excess Sodium Potassium Chloride Carbon Dioxide Anion Gap BUN Creatinine Estim Creat Clear Calc Estimated GFR POC Glucose 201 H 168 H 144 H Random Glucose Calcium Phosphorus Magnesium Albumin Urine Creatinine Urine Microalbumin Microalb/Creat Ratio Blood Type Antibody Screen Crossmatch 01/27/21 01/27/21 01/27/21 00:00 02:24 05:21 WBC 5.9 RBC 2.48 L Hgb 6.8 L* Hct 22.8 L MCV 91.9 MCH 27.4 MCHC 29.8 L RDW 16.3 H Plt Count 79 L MPV 14.2 H Immature Gran % (Auto) 0.9 H Neut % (Auto) 74.2 H Lymph % (Auto) 16.4 L [place] % (Auto) 4.9 Eos % (Auto) 3.6 Baso % (Auto) 0.0 Lymph # (Auto) 1.0 L [place] # (Auto) 0.3 Eos # (Auto) 0.2 Baso # (Auto) 0.0 Abs Immat Gran (auto) 0.05 H Absolute Neuts (auto) 4.4 Absolute Nucleated RBC 0.020 H Nucleated RBC % (auto) 0.3 H Smear Tech's Comments VERIFIED VBG pH VBG pCO2 VBG pO2 VBG HCO3 VBG O2 Saturation VBG Base Excess Sodium Potassium Chloride Carbon Dioxide Anion Gap BUN Creatinine Estim Creat Clear Calc Estimated GFR POC Glucose 137 H 119 H Random Glucose Calcium Phosphorus Magnesium Albumin Urine Creatinine Urine Microalbumin Microalb/Creat Ratio Blood Type Antibody Screen Crossmatch 01/27/21 01/27/21 01/27/21 05:21 05:23 05:23 WBC RBC Hgb Hct MCV MCH MCHC RDW Plt Count MPV Immature Gran % (Auto) Neut % (Auto) Lymph % (Auto) [place] % (Auto) Eos % (Auto) Baso % (Auto) Lymph # (Auto) [place] # (Auto) Eos # (Auto) Baso # (Auto) Abs Immat Gran (auto) Absolute Neuts (auto) Absolute Nucleated RBC Nucleated RBC % (auto) Smear Tech's Comments VBG pH 7.36 VBG pCO2 38 VBG pO2 44 VBG HCO3 22 VBG O2 Saturation 71.0 VBG Base Excess -2.7 Sodium 147 H Potassium 3.9 Chloride 115 H Carbon Dioxide 24 Anion Gap 12 BUN 66 H Creatinine 3.08 H Estim Creat Clear Calc 41.6 Estimated GFR 22 POC Glucose 91 Random Glucose 99 D Calcium 8.0 L Phosphorus 5.1 H Magnesium 2.2 Albumin 2.3 L Urine Creatinine Urine Microalbumin Microalb/Creat Ratio Blood Type Antibody Screen Crossmatch 01/27/21 06:25 WBC RBC Hgb Hct MCV MCH MCHC RDW Plt Count MPV Immature Gran % (Auto) Neut % (Auto) Lymph % (Auto) [place] % (Auto) Eos % (Auto) Baso % (Auto) Lymph # (Auto) [place] # (Auto) Eos # (Auto) Baso # (Auto) Abs Immat Gran (auto) Absolute Neuts (auto) Absolute Nucleated RBC Nucleated RBC % (auto) Smear Tech's Comments VBG pH VBG pCO2 VBG pO2 VBG HCO3 VBG O2 Saturation VBG Base Excess Sodium Potassium Chloride Carbon Dioxide Anion Gap BUN Creatinine Estim Creat Clear Calc Estimated GFR POC Glucose Random Glucose Calcium Phosphorus Magnesium Albumin Urine Creatinine Urine Microalbumin Microalb/Creat Ratio Blood Type A Positive Antibody Screen NEGATIVE Crossmatch See Detail Microbiology Microbiology Results: Microbiology 01/22/21 10:29 Blood - Venous Blood Culture - Preliminary No growth after 48 hours. 01/22/21 10:20 Blood - Venous Blood Culture - Preliminary No growth after 48 hours. 01/19/21 08:06 Sputum - Suctioned Gram Stain - Final 01/19/21 08:06 Sputum - Suctioned Sputum Culture - Final Strep agalactiae (Grp B) 01/15/21 05:54 Blood - Central Line Blood Culture - Final No growth after 5 days. 01/15/21 05:54 Blood - Central Line Blood Culture - Final No growth after 5 days. 01/09/21 21:01 Sputum - Suctioned Gram Stain - Final 01/09/21 21:01 Sputum - Suctioned Sputum Culture - Final 01/07/21 05:25 Blood - Venous Blood Culture - Final No growth after 5 days. 01/07/21 05:18 Blood - Venous Blood Culture - Final No growth after 5 days. Assessment & Plan Assessment and plan (1) Thrombocytopenia associated with COVID-19: Status: Acute Assessment and Plan: Assessment: 45-year-old gentleman with multiple medical issues admitted with acute hypoxic respiratory failure secondary to COVID-19 ARDS further complicated by acute on chronic renal failure on the background of peripheral vascular disease and hepatitis-C cirrhosis. Plan: Neuro: No acute issues. Underlying history of CVA, previously on dual antiplatelet therapy, held secondary to recent GI bleed. Cardiac: No acute issues. Underlying history of hypertension. Pulmonary: Acute hypoxic respiratory failure secondary to COVID-19 ARDS requiring ventilatory support. Extubated 01/24/2021 required re-intubation on 01/25 secondary to recurrent aspirations. Now being planned for tracheostomy and parenteral gastrostomy. Renal: Acute on chronic renal failure , likely multifactorial, appears to be at the new baseline of creatinine of approximately 2.2. Nephrology service care appreciated. Continue to monitor renal indices and urine output. Endo: Hyperglycemia without diabetic ketoacidosis. Continue insulin drip. GI: No acute issues. ID: COVID-19. Completed dexamethasone. Being titrated off Solu-Medrol. Heme/Onc: No acute issues. Psych: No acute issues. Miscellaneous: No acute issues. Prophylaxis: Heparin, ppi Diet: Tube feeds Critical care time spent: 60 minutes (2) Acute respiratory distress syndrome (ARDS) due to COVID-19 virus: Status: Acute (3) Acute respiratory failure with hypoxia: Status: Acute (4) Hepatitis C, chronic: Status: Acute (5) Cirrhosis: Status: Acute (6) Hypertension: Status: Acute (7) Diabetes: Status: Acute (8) Pulmonary aspiration: Status: Acute (9) Chronic kidney disease (CKD), stage III (moderate): Status: Acute (10) Acute hypernatremia: Status: Acute Assessment and Plan: improved but still needs increased free h2o (11) KIRILL (acute kidney injury): Status: Acute Assessment and Plan: decrease UO and creat rising will check urine studies and give fluid challenge Time Spent With Patient Time: Total time spent is greater than 50% in coordination of care (as documented) at patient's floor/unit and/or counseling patient: Procedures Date of Service Date of Service: 01/27/21 Progress Note: Quality Stroke Does the patient have a stroke diagnosis?: No
[2021-01-27 08:00] LABS: Glucose, Whole Blood 168 mg/dL (60-115)
[2021-01-27] MEDS: Chlorhexidine Gluc Oral Rinse 15 ML MOUTHWASH BUCCAL ×3 (08:31→21:18)
[2021-01-27] MEDS: Insulin Glargine,Hum.rec.anlog 100 UNIT/ML 10 ML VIAL 20 UNIT SUBCUT (08:32)
[2021-01-27] MEDS: Heparin Sodium,Porcine 5,000 UNIT/ML VIAL 5000 UNIT SUBCUT (08:32)
[2021-01-27] MEDS: Albumin Human 25 % 100 ML IV (08:32)
[2021-01-27] MEDS: methylPREDNISolone Sod Succ 40 MG/ML VIAL 30 MG IVPUSH (08:32)
--- NOTE | 2021-01-27 09:01 | PM.CCPN ---
Subjective Subjective Date of Service: 01/27/21 Critical Care Time (minutes): 60 Comment: 45-year-old gentleman with underlying diabetes mellitus, CKD stage 3, peripheral vascular disease status post bilateral BKA, CVA on dual antiplatelet therapy, hep C cirrhosis, asthma, COVID-19 positive on 01/01/2021, recently hospitalized at [facility] on 01/01/2021 through 01/04/2021 for lower GI bleed, cirrhosis, COVID-19. Patient has had CT chest demonstrated colonic thickening versus mass, however endoscopy/colonoscopy were deferred for 2 weeks for resolution of his COVID symptoms, CT abdomen pelvis from this admission did not redemonstrate any mass or colitis. He has been admitted on 01/07/2021 with progressive hypoxemia requiring high-flow nasal cannula, acute on chronic kidney injury, hyperglycemia, and significant metabolic acidosis. His CT abdomen pelvis was negative colitis or mass. Secondary to refractory hypoxemia patient required intubation on 01/08/2021. Extubated 01/24/2021, but required re-intubation on 01/25/2021 secondary to acute hypoxia secondary to recurrent aspirations. Being planned for tracheostomy and parenteral gastrostomy No events overnight. Physical Exam Vital Signs: Vital Signs: Last Vital Signs Temp 98.8 F 01/27/21 08:00 Pulse 93 01/27/21 08:00 Resp 19 01/27/21 08:00 BP 150/75 H 01/27/21 08:00 Pulse Ox 92 01/27/21 08:00 Oxygen Flow Rate 100 01/07/21 05:11 Body Mass Index 33.3 Const: General: no acute distress and other (Sedated on the vent) Eyes: Sclerae: sclerae normal EOM: EOMs intact bilaterally Neck: Neck: Yes no lymphadenopathy, Yes trachea midline and Yes supple Resp: Auscultation: crackles (Bibasilar) Cardio: Rate: regular rate Rhythm: regular rhythm Heart sounds: no gallops, no murmurs and no rubs GI: Palpation (GI): Soft to palpation and Other GI palpation findings present ( Nontender) Auscultation: normal bowel sounds Extrem: General: No clubbing, No cyanosis and Yes other (Bilateral BKA) Objective Data Labs CBC & Chem 7: 01/27/21 05:21 01/27/21 05:21 Labs: Laboratory Results - last 24 hr 01/26/21 01/26/21 01/26/21 10:03 10:47 12:03 WBC RBC Hgb Hct MCV MCH MCHC RDW Plt Count MPV Immature Gran % (Auto) Neut % (Auto) Lymph % (Auto) [place] % (Auto) Eos % (Auto) Baso % (Auto) Lymph # (Auto) [place] # (Auto) Eos # (Auto) Baso # (Auto) Abs Immat Gran (auto) Absolute Neuts (auto) Absolute Nucleated RBC Nucleated RBC % (auto) Smear Tech's Comments VBG pH VBG pCO2 VBG pO2 VBG HCO3 VBG O2 Saturation VBG Base Excess Sodium Potassium Chloride Carbon Dioxide Anion Gap BUN Creatinine Estim Creat Clear Calc Estimated GFR POC Glucose 239 H 301 H Random Glucose Calcium Phosphorus Magnesium Albumin Urine Creatinine 58.15 Urine Microalbumin 4728.0 Microalb/Creat Ratio 8130.6 Blood Type Antibody Screen Crossmatch 01/26/21 01/26/21 01/26/21 14:08 15:59 18:08 WBC RBC Hgb Hct MCV MCH MCHC RDW Plt Count MPV Immature Gran % (Auto) Neut % (Auto) Lymph % (Auto) [place] % (Auto) Eos % (Auto) Baso % (Auto) Lymph # (Auto) [place] # (Auto) Eos # (Auto) Baso # (Auto) Abs Immat Gran (auto) Absolute Neuts (auto) Absolute Nucleated RBC Nucleated RBC % (auto) Smear Tech's Comments VBG pH VBG pCO2 VBG pO2 VBG HCO3 VBG O2 Saturation VBG Base Excess Sodium Potassium Chloride Carbon Dioxide Anion Gap BUN Creatinine Estim Creat Clear Calc Estimated GFR POC Glucose 277 H 266 H 201 H Random Glucose Calcium Phosphorus Magnesium Albumin Urine Creatinine Urine Microalbumin Microalb/Creat Ratio Blood Type Antibody Screen Crossmatch 01/26/21 01/26/21 01/27/21 19:53 22:04 00:00 WBC RBC Hgb Hct MCV MCH MCHC RDW Plt Count MPV Immature Gran % (Auto) Neut % (Auto) Lymph % (Auto) [place] % (Auto) Eos % (Auto) Baso % (Auto) Lymph # (Auto) [place] # (Auto) Eos # (Auto) Baso # (Auto) Abs Immat Gran (auto) Absolute Neuts (auto) Absolute Nucleated RBC Nucleated RBC % (auto) Smear Tech's Comments VBG pH VBG pCO2 VBG pO2 VBG HCO3 VBG O2 Saturation VBG Base Excess Sodium Potassium Chloride Carbon Dioxide Anion Gap BUN Creatinine Estim Creat Clear Calc Estimated GFR POC Glucose 168 H 144 H 137 H Random Glucose Calcium Phosphorus Magnesium Albumin Urine Creatinine Urine Microalbumin Microalb/Creat Ratio Blood Type Antibody Screen Crossmatch 01/27/21 01/27/21 01/27/21 02:24 05:21 05:21 WBC 5.9 RBC 2.48 L Hgb 6.8 L* Hct 22.8 L MCV 91.9 MCH 27.4 MCHC 29.8 L RDW 16.3 H Plt Count 79 L MPV 14.2 H Immature Gran % (Auto) 0.9 H Neut % (Auto) 74.2 H Lymph % (Auto) 16.4 L [place] % (Auto) 4.9 Eos % (Auto) 3.6 Baso % (Auto) 0.0 Lymph # (Auto) 1.0 L [place] # (Auto) 0.3 Eos # (Auto) 0.2 Baso # (Auto) 0.0 Abs Immat Gran (auto) 0.05 H Absolute Neuts (auto) 4.4 Absolute Nucleated RBC 0.020 H Nucleated RBC % (auto) 0.3 H Smear Tech's Comments VERIFIED VBG pH VBG pCO2 VBG pO2 VBG HCO3 VBG O2 Saturation VBG Base Excess Sodium 147 H Potassium 3.9 Chloride 115 H Carbon Dioxide 24 Anion Gap 12 BUN 66 H Creatinine 3.08 H Estim Creat Clear Calc 41.6 Estimated GFR 22 POC Glucose 119 H Random Glucose 99 D Calcium 8.0 L Phosphorus 5.1 H Magnesium 2.2 Albumin 2.3 L Urine Creatinine Urine Microalbumin Microalb/Creat Ratio Blood Type Antibody Screen Crossmatch 01/27/21 01/27/21 01/27/21 05:23 05:23 06:25 WBC RBC Hgb Hct MCV MCH MCHC RDW Plt Count MPV Immature Gran % (Auto) Neut % (Auto) Lymph % (Auto) [place] % (Auto) Eos % (Auto) Baso % (Auto) Lymph # (Auto) [place] # (Auto) Eos # (Auto) Baso # (Auto) Abs Immat Gran (auto) Absolute Neuts (auto) Absolute Nucleated RBC Nucleated RBC % (auto) Smear Tech's Comments VBG pH 7.36 VBG pCO2 38 VBG pO2 44 VBG HCO3 22 VBG O2 Saturation 71.0 VBG Base Excess -2.7 Sodium Potassium Chloride Carbon Dioxide Anion Gap BUN Creatinine Estim Creat Clear Calc Estimated GFR POC Glucose 91 Random Glucose Calcium Phosphorus Magnesium Albumin Urine Creatinine Urine Microalbumin Microalb/Creat Ratio Blood Type A Positive Antibody Screen NEGATIVE Crossmatch See Detail 01/27/21 07:45 WBC RBC Hgb Hct MCV MCH MCHC RDW Plt Count MPV Immature Gran % (Auto) Neut % (Auto) Lymph % (Auto) [place] % (Auto) Eos % (Auto) Baso % (Auto) Lymph # (Auto) [place] # (Auto) Eos # (Auto) Baso # (Auto) Abs Immat Gran (auto) Absolute Neuts (auto) Absolute Nucleated RBC Nucleated RBC % (auto) Smear Tech's Comments VBG pH VBG pCO2 VBG pO2 VBG HCO3 VBG O2 Saturation VBG Base Excess Sodium Potassium Chloride Carbon Dioxide Anion Gap BUN Creatinine Estim Creat Clear Calc Estimated GFR POC Glucose 168 H Random Glucose Calcium Phosphorus Magnesium Albumin Urine Creatinine Urine Microalbumin Microalb/Creat Ratio Blood Type Antibody Screen Crossmatch Microbiology Microbiology Results: Microbiology 01/22/21 10:29 Blood - Venous Blood Culture - Preliminary No growth after 48 hours. 01/22/21 10:20 Blood - Venous Blood Culture - Preliminary No growth after 48 hours. 01/19/21 08:06 Sputum - Suctioned Gram Stain - Final 01/19/21 08:06 Sputum - Suctioned Sputum Culture - Final Strep agalactiae (Grp B) 01/15/21 05:54 Blood - Central Line Blood Culture - Final No growth after 5 days. 01/15/21 05:54 Blood - Central Line Blood Culture - Final No growth after 5 days. 01/09/21 21:01 Sputum - Suctioned Gram Stain - Final 01/09/21 21:01 Sputum - Suctioned Sputum Culture - Final 01/07/21 05:25 Blood - Venous Blood Culture - Final No growth after 5 days. 01/07/21 05:18 Blood - Venous Blood Culture - Final No growth after 5 days. Progress Note: A&P Assessment and plan (1) Pulmonary aspiration: Status: Acute Assessment and Plan: Assessment: 45-year-old gentleman with multiple medical issues admitted with acute hypoxic respiratory failure secondary to COVID-19 ARDS further complicated by acute on chronic renal failure on the background of peripheral vascular disease and hepatitis-C cirrhosis. Plan: Neuro: No acute issues. Underlying history of CVA, previously on dual antiplatelet therapy, held secondary to recent GI bleed. Cardiac: No acute issues. Underlying history of hypertension. Pulmonary: Acute hypoxic respiratory failure secondary to COVID-19 ARDS requiring ventilatory support. Extubated 01/24/2021 required re-intubation on 01/25 secondary to recurrent aspirations. Now being planned for tracheostomy and parenteral gastrostomy. Renal: Acute on chronic renal failure , likely multifactorial. Nephrology service care appreciated. Continue to monitor renal indices and urine output. Endo: Switched from insulin drip to Lantus and sliding scale insulin. GI: No acute issues. ID: COVID-19. Completed dexamethasone. Being titrated off Solu-Medrol. Heme/Onc: No acute issues. Psych: No acute issues. Miscellaneous: No acute issues. Prophylaxis: Heparin, ppi Diet: Tube feeds Critical care time spent: 60 minutes (2) Acute respiratory distress syndrome (ARDS) due to COVID-19 virus: Status: Acute (3) Acute on chronic kidney failure: Status: Acute (4) Acute respiratory failure with hypoxia: Status: Acute (5) Hepatitis C, chronic: Status: Acute (6) Cirrhosis: Status: Acute (7) Hypertension: Status: Acute (8) Diabetes: Status: Acute Quality Stroke Does the patient have a stroke diagnosis?: No VTE Prior VTE?: No VTE Risk Level:: Medical - moderate - high VTE Device Contraindication: Treatment Not Indicated VTE Drug Contraindication: N/A - Med Ordered
--- NOTE | 2021-01-27 10:13 | MHC.CM.PN ---
Addendum entered by Tonya Wise 01/27/21 15:55: Received follow up calls from pt's mother, Nancy and dtr, Elizabeth. Both wanting to speak with re: pt status and assisted outcomes: per Tiffanie, pt would not want to be dependent on medical equipment assisted. Per pt's mother, she would like him kept alive at all costs. Family conference call set up for 1:30 today with MD: Per family conference call: family has agreed to proceed with peg/trach placement. Both parties updated in detail about pt's need for LTAC placement following procedures including location of facility, and care expectations. Pt has been referred for placement. CM to follow Original Note: Pt required re-intubation after a brief trial on hi flow: Pt will need a Peg and Trach: will be scheduled for early next week: pt will be referred to [facility] for LTAC LOC. Calls placed to pt's family to update on status.
[2021-01-27 10:35] LABS: Osmolality Urine 346 mosm/kg (373-1093)
[2021-01-27 10:39] LABS: Creatinine Urine 54.95 mg/dL
--- NOTE | 2021-01-27 13:02 | MHC.CLN ---
F/U PT RECEIVING NEPRO AT MAX GOAL RATE 15ML/HR WITH 30ML PROSOURCE TID VIA OGT AND 300ML FREE WATER FLUSHES Q 6HRS TO PROVIDE 828KCALS (1778KCALS TOTAL WITH SEDATION; 24KCALS/KG BASED ON IBW), 74G PROTEIN (1.0G/KG), 1462CC TOTAL WATER FROM FORMULA AND FLUSHES (20ML/KG BASED ON IBW) CONTINUE TO MONITOR TOLERANCE, RESIDUALS AND LYTES
[2021-01-27 13:54] LABS: Glucose, Whole Blood 334 mg/dL (60-115)
[2021-01-27] MEDS: Insulin Lispro 100 UNIT/ML 3 ML VIAL SUBCUT ×2 (13:56→21:34)
--- NOTE | 2021-01-27 17:39 | PC.NURSE ---
Remains intubated. Tolerating vent well with Fentanyl and Propofol at MAX dose rates. Wrists restrained for ETT protection. (+) cough/gag but extremities still flaccid d/t decreased muscle tone. Low grade temps today. H+H low, transfused with 1unit PRBCs. Albumin given this AM per orders. Vent settings unchanged today AC20/Vt500/FiO2 60%/ PEEP 5. Lungs rhonchorous and diminished, scant amounts of thick villegas inline secretions noted. SpO2 93 and better today. HR 90s-100s, BPs 150s-180s systolic. Tube feeds continue at goal, minimal residuals noted. Free water boluses q6hrs, ProSource TID. No BMs today. Urine outputs improved throughout the day. Insulin drip off and converted to Lantus daily with q6hr sliding scale insulin coverage for q6hr glucose POCs. Repositioned, skin remains intact. Bed bath at 1700 today. Oral care q2hrs per Vent bundle protocol. Family update today by and RN.
[2021-01-27 22:04] LABS: Glucose, Whole Blood 348 mg/dL (60-115)
[2021-01-28] VITALS (30 sets, daily range): BP systolic 141–178; BP diastolic 67–90; PULSE 87–104; RESP 14–25; TEMP 36.7–37.2; O2SAT 90–97; BMI 33.4
[2021-01-28] MEDS: propofoL 1,000 MG/100 ML VIAL 36 MG IVCONT ×10 (02:39→23:08)
[2021-01-28] MEDS: fentaNYL citrate/NS 1,000 MCG/100 ML PLAST..BAG 20 MCG IVCONT ×5 (04:48→23:08)
[2021-01-28] MEDS: Pantoprazole Sodium 40 MG/10 ML VIAL IVPUSH (05:21)
[2021-01-28 05:31] LABS: VBG HCO3 19 mmol/L (22-26); VBG pCO2 34 mmHg; VBG pH 7.36 (7.32-7.43); VBG pO2 54 mmHg
[2021-01-28] MEDS: Insulin Lispro 100 UNIT/ML 3 ML VIAL SUBCUT ×3 (05:34→18:05)
[2021-01-28 05:40] LABS: MANUAL DIFF FLAG SCAN; Monocytes Absolute Auto 0.3 X10*3/uL (0.1-1.2); Red Cell Distribution Width 16.1 % (11.0-16.0); SCAN SMEAR FLAG 1
[2021-01-28 05:42] LABS: Eosinophils Absolute Auto 0.2 X10*3/uL (0.0-0.4); Eosinophils Percent Auto 3.5 % (0-4); Hematocrit 25.8 % (42-52); Hemoglobin 7.8 g/dl (14.0-18.0); Imm Gran Abs Auto 0.05 X10*3/uL (0.00-0.03); Lymphocytes Absolute Auto 0.9 X10*3/uL (1.2-4.9); Lymphocytes Percent Auto 18.5 % (20-40); Mean Corpuscular HGB Conc 30.2 g/dl (31.0-36.0); Mean Corpuscular Hemoglobin 28.1 pg (27.0-33.0); Mean Corpuscular Volume 92.8 fL (80-98); Mean Platelet Volume 13.6 fL (9.4-12.4); Neutrophils Absolute Auto 3.4 X10*3/uL (2.0-8.3); Red Blood Count 2.78 X10*6/uL (4.60-5.80); White Blood Count 4.8 X10*3/uL (4.8-10.8)
[2021-01-28 05:57] LABS: PLT ABN DIST 1; Platelet Count 83 X10*3/uL (160-400)
[2021-01-28 06:01] LABS: Glucose, Whole Blood 322 mg/dL (60-115)
[2021-01-28 06:11] LABS: Albumin Level 2.6 g/dL (3.5-5.0); Anion Gap 15 (12-20); Blood Urea Nitrogen 78 mg/dL (9-16); Calcium 8.1 mg/dL (8.4-10.2); Carbon Dioxide 20 mmol/L (22-29); Chloride 114 mmol/L (96-108); Creatinine Clr Calc Pharmacy 40.8; Estimated Glomerular Filt Rate 22; Glucose Random 350 mg/dL (60-115); Magnesium 2.2 mg/dL (1.6-2.6); Phosphorus 5.4 mg/dL (2.7-4.5); Potassium 4.4 mmol/L (3.3-5.1); Sodium 145 mmol/L (135-145)
[2021-01-28 06:15] LABS: Venous Blood Gas Refer to POC result
[2021-01-28 07:33] LABS: SLIDE REVIEW VERIFIED
[2021-01-28] MEDS: Chlorhexidine Gluc Oral Rinse 15 ML MOUTHWASH BUCCAL ×3 (08:13→19:48)
[2021-01-28] MEDS: 0.9 % Sodium Chloride Flush 3 ML SYRINGE IVFLUSH ×2 (08:13→14:56)
[2021-01-28] MEDS: methylPREDNISolone Sod Succ 40 MG/ML VIAL 30 MG IVPUSH (08:13)
[2021-01-28] MEDS: Heparin Sodium,Porcine 5,000 UNIT/ML VIAL 5000 UNIT SUBCUT ×2 (08:14→21:36)
[2021-01-28] MEDS: Insulin Glargine,Hum.rec.anlog 100 UNIT/ML 10 ML VIAL 20 UNIT SUBCUT ×2 (08:15→10:50)
[2021-01-28] MEDS: Albumin Human 25 % 100 ML IV ×3 (08:44→19:49)
--- NOTE | 2021-01-28 10:33 | PM.CCPN ---
Subjective Subjective Date of Service: 01/28/21 Interval History: 45-year-old gentleman with underlying diabetes mellitus, CKD stage 3, peripheral vascular disease status post bilateral BKA, CVA on dual antiplatelet therapy, hep C cirrhosis, asthma, COVID-19 positive on 01/01/2021, recently hospitalized at [facility] on 01/01/2021 through 01/04/2021 for lower GI bleed, cirrhosis, COVID-19. Patient has had CT chest demonstrated colonic thickening versus mass, however endoscopy/colonoscopy were deferred for 2 weeks for resolution of his COVID symptoms, CT abdomen pelvis from this admission did not redemonstrate any mass or colitis. He has been admitted on 01/07/2021 with progressive hypoxemia requiring high-flow nasal cannula, acute on chronic kidney injury, hyperglycemia, and significant metabolic acidosis. His CT abdomen pelvis was negative colitis or mass. Secondary to refractory hypoxemia patient required intubation on 01/08/2021. Extubated 01/24/2021, but required re-intubation on 01/25/2021 secondary to acute hypoxia secondary to recurrent aspirations. Being planned for tracheostomy and parenteral gastrostomy No events overnight. Critical Care Time (minutes): 60 Physical Exam Vital Signs: Vital Signs: Last Vital Signs Temp 98.1 F 01/28/21 10:00 Pulse 88 01/28/21 10:00 Resp 17 01/28/21 10:00 BP 168/80 H 01/28/21 10:00 Pulse Ox 92 01/28/21 10:00 Oxygen Flow Rate 100 01/07/21 05:11 Body Mass Index 33.4 Const: General: no acute distress and other (Sedated on the vent) Eyes: Sclerae: sclerae normal EOM: EOMs intact bilaterally Neck: Neck: Yes no lymphadenopathy, Yes trachea midline and Yes supple Resp: Auscultation: crackles (Bibasilar) Cardio: Rate: regular rate Rhythm: regular rhythm Heart sounds: no gallops, no murmurs and no rubs GI: Palpation (GI): Soft to palpation and Other GI palpation findings present ( Nontender) Auscultation: normal bowel sounds Extrem: General: No clubbing, No cyanosis and Yes other (Bilateral BKA) Objective Data Labs CBC & Chem 7: 01/28/21 05:25 01/28/21 05:25 Labs: Laboratory Results - last 24 hr 01/27/21 01/27/21 01/27/21 06:25 09:46 09:46 WBC RBC Hgb Hct MCV MCH MCHC RDW Plt Count MPV Immature Gran % (Auto) Neut % (Auto) Lymph % (Auto) [place] % (Auto) Eos % (Auto) Baso % (Auto) Lymph # (Auto) [place] # (Auto) Eos # (Auto) Baso # (Auto) Abs Immat Gran (auto) Absolute Neuts (auto) Absolute Nucleated RBC Nucleated RBC % (auto) Smear Tech's Comments VBG pH VBG pCO2 VBG pO2 VBG HCO3 VBG O2 Saturation VBG Base Excess Sodium Potassium Chloride Carbon Dioxide Anion Gap BUN Creatinine Estim Creat Clear Calc Estimated GFR POC Glucose Random Glucose Calcium Phosphorus Magnesium Albumin Urine Osmolality 346 L Ur Random Sodium 55.0 Urine Creatinine 54.95 Urine Microalbumin 2902.0 Microalb/Creat Ratio 5281.1 Crossmatch See Detail 01/27/21 01/27/21 01/28/21 13:47 21:29 05:24 WBC RBC Hgb Hct MCV MCH MCHC RDW Plt Count MPV Immature Gran % (Auto) Neut % (Auto) Lymph % (Auto) [place] % (Auto) Eos % (Auto) Baso % (Auto) Lymph # (Auto) [place] # (Auto) Eos # (Auto) Baso # (Auto) Abs Immat Gran (auto) Absolute Neuts (auto) Absolute Nucleated RBC Nucleated RBC % (auto) Smear Tech's Comments VBG pH 7.36 VBG pCO2 34 VBG pO2 54 VBG HCO3 19 L VBG O2 Saturation 82.0 VBG Base Excess -5.0 Sodium Potassium Chloride Carbon Dioxide Anion Gap BUN Creatinine Estim Creat Clear Calc Estimated GFR POC Glucose 334 H 348 H Random Glucose Calcium Phosphorus Magnesium Albumin Urine Osmolality Ur Random Sodium Urine Creatinine Urine Microalbumin Microalb/Creat Ratio Crossmatch 01/28/21 01/28/21 01/28/21 05:25 05:25 05:30 WBC 4.8 RBC 2.78 L Hgb 7.8 L Hct 25.8 L MCV 92.8 MCH 28.1 MCHC 30.2 L RDW 16.1 H Plt Count 83 L MPV 13.6 H Immature Gran % (Auto) 1.0 H Neut % (Auto) 71.0 Lymph % (Auto) 18.5 L [place] % (Auto) 6.0 Eos % (Auto) 3.5 Baso % (Auto) 0.0 Lymph # (Auto) 0.9 L [place] # (Auto) 0.3 Eos # (Auto) 0.2 Baso # (Auto) 0.0 Abs Immat Gran (auto) 0.05 H Absolute Neuts (auto) 3.4 Absolute Nucleated RBC 0.000 Nucleated RBC % (auto) 0.0 Smear Tech's Comments VERIFIED VBG pH VBG pCO2 VBG pO2 VBG HCO3 VBG O2 Saturation VBG Base Excess Sodium 145 Potassium 4.4 Chloride 114 H Carbon Dioxide 20 L Anion Gap 15 BUN 78 H Creatinine 3.12 H Estim Creat Clear Calc 40.8 Estimated GFR 22 POC Glucose 322 H Random Glucose 350 H* Calcium 8.1 L Phosphorus 5.4 H Magnesium 2.2 Albumin 2.6 L Urine Osmolality Ur Random Sodium Urine Creatinine Urine Microalbumin Microalb/Creat Ratio Crossmatch Microbiology Microbiology Results: Microbiology 01/22/21 10:29 Blood - Venous Blood Culture - Final No growth after 5 days. 01/22/21 10:20 Blood - Venous Blood Culture - Final No growth after 5 days. 01/19/21 08:06 Sputum - Suctioned Gram Stain - Final 01/19/21 08:06 Sputum - Suctioned Sputum Culture - Final Strep agalactiae (Grp B) 01/15/21 05:54 Blood - Central Line Blood Culture - Final No growth after 5 days. 01/15/21 05:54 Blood - Central Line Blood Culture - Final No growth after 5 days. 01/09/21 21:01 Sputum - Suctioned Gram Stain - Final 01/09/21 21:01 Sputum - Suctioned Sputum Culture - Final 01/07/21 05:25 Blood - Venous Blood Culture - Final No growth after 5 days. 01/07/21 05:18 Blood - Venous Blood Culture - Final No growth after 5 days. Progress Note: A&P Assessment and plan (1) Thrombocytopenia associated with COVID-19: Status: Acute Assessment and Plan: Assessment: 45-year-old gentleman with multiple medical issues admitted with acute hypoxic respiratory failure secondary to COVID-19 ARDS further complicated by acute on chronic renal failure on the background of peripheral vascular disease and hepatitis-C cirrhosis. Plan: Neuro: No acute issues. Underlying history of CVA, previously on dual antiplatelet therapy, held secondary to recent GI bleed. Cardiac: No acute issues. Underlying history of hypertension. Pulmonary: Acute hypoxic respiratory failure secondary to COVID-19 ARDS requiring ventilatory support. Extubated 01/24/2021 required re-intubation on 01/25 secondary to recurrent aspirations. Now being planned for tracheostomy and parenteral gastrostomy. Renal: Acute on chronic renal failure , likely multifactorial. Nephrology service care appreciated. Continue to monitor renal indices and urine output. Endo: Continue Lantus and sliding scale insulin. GI: No acute issues. ID: COVID-19. Completed dexamethasone. Being titrated off Solu-Medrol. Heme/Onc: No acute issues. Psych: No acute issues. Miscellaneous: No acute issues. Prophylaxis: Heparin, ppi Diet: Tube feeds Critical care time spent: 60 minutes (2) Acute respiratory distress syndrome (ARDS) due to COVID-19 virus: Status: Acute (3) Acute respiratory failure with hypoxia: Status: Acute (4) Acute on chronic kidney failure: Status: Acute (5) Hepatitis C, chronic: Status: Acute (6) Cirrhosis: Status: Acute (7) Hypertension: Status: Acute (8) Diabetes: Status: Acute Quality Stroke Does the patient have a stroke diagnosis?: No VTE Prior VTE?: No VTE Risk Level:: Medical - moderate - high VTE Device Contraindication: Treatment Not Indicated VTE Drug Contraindication: N/A - Med Ordered
[2021-01-28 11:52] LABS: Glucose, Whole Blood 338 mg/dL (60-115)
[2021-01-28 18:05] LABS: Glucose, Whole Blood 306 mg/dL (60-115)
--- NOTE | 2021-01-28 18:48 | PC.NURSE ---
AFEBRILE. VSS. REMAINS ON AC 20/500/8/60%. ALBUMIN ADMINISTERED: 2 OUT OF 4 DOSES ADMINISTERED THIS SHIFT. LANTUS DOSE INCREASED TO 40 UNITS DAILY. TUBE FEEDS REMAIN NEPRO 15 ML.HR, FWF 300 ML Q6, PROSOURCE TID ADMINISTERED THIS SHIFT. URINE OUTPUT WNL. NO BM - SMEARING ONLY. Q2HR REPO, BARRIER CREAM, PREVALON AND PILLOWS UTILIZED. FAMILY UPDATED AND FACETIME.
[2021-01-29] VITALS (31 sets, daily range): BP systolic 124–173; BP diastolic 63–89; PULSE 82–114; RESP 17–27; TEMP 36.8–38.2; O2SAT 90–97
[2021-01-29] MEDS: 0.9 % Sodium Chloride Flush 3 ML SYRINGE IVFLUSH ×3 (00:06→17:16)
[2021-01-29] MEDS: Insulin Lispro 100 UNIT/ML 3 ML VIAL SUBCUT ×4 (00:14→18:05)
[2021-01-29 00:25] LABS: Glucose, Whole Blood 183 mg/dL (60-115)
[2021-01-29] MEDS: propofoL 1,000 MG/100 ML VIAL 36 MG IVCONT ×9 (01:55→23:00)
[2021-01-29] MEDS: Albumin Human 25 % 100 ML IV (02:19)
[2021-01-29] MEDS: fentaNYL citrate/NS 1,000 MCG/100 ML PLAST..BAG 20 MCG IVCONT ×4 (03:56→19:17)
[2021-01-29 05:35] LABS: VBG Base Excess -4.9 mmol/L; VBG HCO3 20 mmol/L (22-26); VBG pCO2 36 mmHg; VBG pH 7.34 (7.32-7.43); VBG pO2 57 mmHg
[2021-01-29 05:53] LABS: Hemoglobin 7.2 g/dl (14.0-18.0); Imm Gran Abs Auto 0.04 X10*3/uL (0.00-0.03); MANUAL DIFF FLAG SCAN; Mean Corpuscular Hemoglobin 28.1 pg (27.0-33.0); Red Blood Count 2.56 X10*6/uL (4.60-5.80); SCAN SMEAR FLAG 1
[2021-01-29 05:54] LABS: Eosinophils Absolute Auto 0.2 X10*3/uL (0.0-0.4); Hematocrit 23.7 % (42-52); Lymphocytes Absolute Auto 0.9 X10*3/uL (1.2-4.9); Lymphocytes Percent Auto 23.2 % (20-40); Mean Corpuscular HGB Conc 30.4 g/dl (31.0-36.0); Mean Corpuscular Volume 92.6 fL (80-98); Mean Platelet Volume 13.4 fL (9.4-12.4); Monocytes Absolute Auto 0.3 X10*3/uL (0.1-1.2); Monocytes Percent Auto 6.3 % (2-11); Neutrophils Absolute Auto 2.5 X10*3/uL (2.0-8.3); Neutrophils Percent Auto 63.5 % (45-73); Red Cell Distribution Width 16.4 % (11.0-16.0)
[2021-01-29 06:01] LABS: Venous Blood Gas Refer to POC result
[2021-01-29] MEDS: Pantoprazole Sodium 40 MG/10 ML VIAL IVPUSH (06:12)
[2021-01-29 06:14] LABS: Platelet Count 82 X10*3/uL (160-400)
[2021-01-29 06:15] LABS: PLT ABN DIST 1
[2021-01-29 06:19] LABS: Albumin Level 3.2 g/dL (3.5-5.0); Anion Gap 13 (12-20); Blood Urea Nitrogen 75 mg/dL (9-16); Calcium 8.4 mg/dL (8.4-10.2); Carbon Dioxide 22 mmol/L (22-29); Chloride 116 mmol/L (96-108); Creatinine Clr Calc Pharmacy 48.6; Estimated Glomerular Filt Rate 27; Glucose Random 161 mg/dL (60-115); Magnesium 2.1 mg/dL (1.6-2.6); Phosphorus 4.3 mg/dL (2.7-4.5); Potassium 3.9 mmol/L (3.3-5.1); Sodium 147 mmol/L (135-145)
[2021-01-29 06:27] LABS: Glucose, Whole Blood 167 mg/dL (60-115)
[2021-01-29 06:41] LABS: SLIDE REVIEW VERIFIED
[2021-01-29] MEDS: Chlorhexidine Gluc Oral Rinse 15 ML MOUTHWASH BUCCAL ×3 (08:24→20:09)
[2021-01-29] MEDS: Insulin Glargine,Hum.rec.anlog 100 UNIT/ML 10 ML VIAL 40 UNIT SUBCUT (08:24)
[2021-01-29] MEDS: Heparin Sodium,Porcine 5,000 UNIT/ML VIAL 5000 UNIT SUBCUT ×2 (08:24→22:06)
[2021-01-29] MEDS: methylPREDNISolone Sod Succ 40 MG/ML VIAL 30 MG IVPUSH (08:26)
--- NOTE | 2021-01-29 09:59 | PM.PNNEP ---
Subjective Subjective Date of Service: 01/29/21 Interval history: 45-year-old gentleman with underlying diabetes mellitus, CKD stage 3, peripheral vascular disease status post bilateral BKA, CVA on dual antiplatelet therapy, hep C cirrhosis, asthma, COVID-19 positive on 01/01/2021, recently hospitalized at [facility] on 01/01/2021 through 01/04/2021 for lower GI bleed, cirrhosis, COVID-19. Patient has had CT chest demonstrated colonic thickening versus mass, however endoscopy/colonoscopy were deferred for 2 weeks for resolution of his COVID symptoms, CT abdomen pelvis from this admission did not redemonstrate any mass or colitis. He has been admitted on 01/07/2021 with progressive hypoxemia requiring high-flow nasal cannula, acute on chronic kidney injury, hyperglycemia, and significant metabolic acidosis. His CT abdomen pelvis was negative colitis or mass. Secondary to refractory hypoxemia patient required intubation on 01/08/2021. Extubated 01/24/2021, but required re-intubation on 01/25/2021 secondary to acute hypoxia secondary to recurrent aspirations. Being planned for tracheostomy and parenteral gastrostomy No events overnight. Physical Exam Vital Signs: Vital Signs: Last Vital Signs Temp 99.3 F 01/29/21 09:00 Pulse 93 01/29/21 09:00 Resp 21 H 01/29/21 09:00 BP 157/78 H 01/29/21 09:00 Pulse Ox 94 01/29/21 09:00 Oxygen Flow Rate 100 01/07/21 05:11 Body Mass Index 33.4 Const: Other: he open his eyes without making eye contact and had a response to command but the but much more weekly so a little bit of coolness to his peripheral extremities but good bilateral carotid upstrokes no gallops no neck vein distension CVP when quiet and balanced at about 5-6 and that is relatively unchanged remaining in sinus tachycardia and BUN and creatinine actually have decreased to the lowest levels of 60/2.2 metabolically comfortable no change in white count or left shift but progressively worsening thrombocytopenia for which I stop the heparin and obtain the heparin induced platelet antibody General: no acute distress, alert, awake, anxious, lethargic (Arousable) and other (Sedated on the vent) Nutritional Appearance: obese Orientation/consciousness: lethargic (Arousable) Eyes: Sclerae: sclerae normal EOM: EOMs intact bilaterally Neck: Neck: Yes no lymphadenopathy, Yes trachea midline and Yes supple Resp: Effort & Inspection: normal respiratory effort and no respiratory distress Auscultation: clear to auscultation bilaterally, crackles (Bibasilar) and rhonchi Cardio: Rate: regular rate and tachycardic Rhythm: regular rhythm Heart sounds: no gallops, no murmurs and no rubs GI: Inspection: Yes normal to inspection Palpation (GI): Soft to palpation and Other GI palpation findings present ( Nontender) Auscultation: normal bowel sounds Extrem: General: No clubbing, No cyanosis and Yes other (Bilateral BKA) Objective Data Labs CBC & Chem 7: 01/29/21 05:30 01/29/21 05:30 Labs: Laboratory Results - last 24 hr 01/28/21 01/28/21 01/29/21 11:48 18:01 00:12 WBC RBC Hgb Hct MCV MCH MCHC RDW Plt Count MPV Immature Gran % (Auto) Neut % (Auto) Lymph % (Auto) [place] % (Auto) Eos % (Auto) Baso % (Auto) Lymph # (Auto) [place] # (Auto) Eos # (Auto) Baso # (Auto) Abs Immat Gran (auto) Absolute Neuts (auto) Absolute Nucleated RBC Nucleated RBC % (auto) Smear Tech's Comments VBG pH VBG pCO2 VBG pO2 VBG HCO3 VBG O2 Saturation VBG Base Excess Sodium Potassium Chloride Carbon Dioxide Anion Gap BUN Creatinine Estim Creat Clear Calc Estimated GFR POC Glucose 338 H 306 H 183 H Random Glucose Calcium Phosphorus Magnesium Albumin 01/29/21 01/29/21 01/29/21 05:27 05:30 05:30 WBC 4.0 L RBC 2.56 L Hgb 7.2 L Hct 23.7 L MCV 92.6 MCH 28.1 MCHC 30.4 L RDW 16.4 H Plt Count 82 L MPV 13.4 H Immature Gran % (Auto) 1.0 H Neut % (Auto) 63.5 Lymph % (Auto) 23.2 [place] % (Auto) 6.3 Eos % (Auto) 6.0 H Baso % (Auto) 0.0 Lymph # (Auto) 0.9 L [place] # (Auto) 0.3 Eos # (Auto) 0.2 Baso # (Auto) 0.0 Abs Immat Gran (auto) 0.04 H Absolute Neuts (auto) 2.5 Absolute Nucleated RBC 0.000 Nucleated RBC % (auto) 0.0 Smear Tech's Comments VERIFIED VBG pH 7.34 VBG pCO2 36 VBG pO2 57 VBG HCO3 20 L VBG O2 Saturation 85.0 VBG Base Excess -4.9 Sodium 147 H Potassium 3.9 Chloride 116 H Carbon Dioxide 22 Anion Gap 13 BUN 75 H Creatinine 2.62 H Estim Creat Clear Calc 48.6 Estimated GFR 27 POC Glucose Random Glucose 161 H D Calcium 8.4 Phosphorus 4.3 Magnesium 2.1 Albumin 3.2 L D 01/29/21 06:15 WBC RBC Hgb Hct MCV MCH MCHC RDW Plt Count MPV Immature Gran % (Auto) Neut % (Auto) Lymph % (Auto) [place] % (Auto) Eos % (Auto) Baso % (Auto) Lymph # (Auto) [place] # (Auto) Eos # (Auto) Baso # (Auto) Abs Immat Gran (auto) Absolute Neuts (auto) Absolute Nucleated RBC Nucleated RBC % (auto) Smear Tech's Comments VBG pH VBG pCO2 VBG pO2 VBG HCO3 VBG O2 Saturation VBG Base Excess Sodium Potassium Chloride Carbon Dioxide Anion Gap BUN Creatinine Estim Creat Clear Calc Estimated GFR POC Glucose 167 H Random Glucose Calcium Phosphorus Magnesium Albumin Microbiology Microbiology Results: Microbiology 01/22/21 10:29 Blood - Venous Blood Culture - Final No growth after 5 days. 01/22/21 10:20 Blood - Venous Blood Culture - Final No growth after 5 days. 01/19/21 08:06 Sputum - Suctioned Gram Stain - Final 01/19/21 08:06 Sputum - Suctioned Sputum Culture - Final Strep agalactiae (Grp B) 01/15/21 05:54 Blood - Central Line Blood Culture - Final No growth after 5 days. 01/15/21 05:54 Blood - Central Line Blood Culture - Final No growth after 5 days. 01/09/21 21:01 Sputum - Suctioned Gram Stain - Final 01/09/21 21:01 Sputum - Suctioned Sputum Culture - Final 01/07/21 05:25 Blood - Venous Blood Culture - Final No growth after 5 days. 01/07/21 05:18 Blood - Venous Blood Culture - Final No growth after 5 days. Assessment & Plan Assessment and plan (1) Thrombocytopenia associated with COVID-19: Status: Acute Assessment and Plan: Assessment: 45-year-old gentleman with multiple medical issues admitted with acute hypoxic respiratory failure secondary to COVID-19 ARDS further complicated by acute on chronic renal failure on the background of peripheral vascular disease and hepatitis-C cirrhosis. Plan: Neuro: No acute issues. Underlying history of CVA, previously on dual antiplatelet therapy, held secondary to recent GI bleed. Cardiac: No acute issues. Underlying history of hypertension. Pulmonary: Acute hypoxic respiratory failure secondary to COVID-19 ARDS requiring ventilatory support. Extubated 01/24/2021 required re-intubation on 01/25 secondary to recurrent aspirations. Now being planned for tracheostomy and parenteral gastrostomy. Renal: Acute on chronic renal failure , likely multifactorial. Nephrology service care appreciated. Continue to monitor renal indices and urine output. Endo: Continue Lantus and sliding scale insulin. GI: No acute issues. ID: COVID-19. Completed dexamethasone. Being titrated off Solu-Medrol. Heme/Onc: No acute issues. Psych: No acute issues. Miscellaneous: No acute issues. Prophylaxis: Heparin, ppi Diet: Tube feeds (2) Acute respiratory distress syndrome (ARDS) due to COVID-19 virus: Status: Acute (3) Acute respiratory failure with hypoxia: Status: Acute (4) Acute on chronic kidney failure: Status: Acute Assessment and Plan: his KIRILL is improved with IVF still sl high na keep up with free h20 losses (5) Hepatitis C, chronic: Status: Acute (6) Cirrhosis: Status: Acute (7) Hypertension: Status: Acute (8) Diabetes: Status: Acute Time Spent With Patient Time: Total time spent is greater than 50% in coordination of care (as documented) at patient's floor/unit and/or counseling patient: Procedures Date of Service Date of Service: 01/29/21 Progress Note: Quality Stroke Does the patient have a stroke diagnosis?: No
--- NOTE | 2021-01-29 10:13 | P.PNCC_ITS ---
Subjective Subjective Date of Service: 01/29/21 Interval History: ICU day 23 for acute hypoxic respiratory failure, COVID-19 ARDS, critical care myopathy, pulmonary aspiration, acute on chronic kidney failure 45-year-old gentleman with underlying diabetes mellitus, CKD stage 3, peripheral vascular disease status post bilateral BKA, CVA on dual antiplatelet therapy, hep C cirrhosis, asthma, COVID-19 positive on 01/01/2021, recently hospitalized at [facility] on 01/01/2021 through 01/04/2021 for lower GI bleed, cirrhosis, COVID-19. Patient has had CT chest demonstrated colonic thickening versus mass, however endoscopy/colonoscopy were deferred for 2 weeks for resolution of his COVID symptoms, CT abdomen pelvis from this admission did not redemonstrate any mass or colitis. He has been admitted on 01/07/2021 with progressive hypoxemia requiring high-flow nasal cannula, acute on chronic kidney injury, hyperglycemia, and significant metabolic acidosis. His CT abdomen pelvis was negative colitis or mass. Secondary to refractory hypoxemia patient required intubation on 01/08/2021. Extubated 01/24/2021, but required re-intubation on 01/25/2021 secondary to acute hypoxia secondary to recurrent aspirations. Being planned for tracheostomy and parenteral gastr ostomy No events overnight. Critical Care Time (minutes): 45 Physical Exam Vital Signs: Vital Signs: Last Vital Signs Temp 99.3 F 01/29/21 10:00 Pulse 92 01/29/21 10:00 Resp 20 01/29/21 10:00 BP 162/77 H 01/29/21 10:00 Pulse Ox 90 L 01/29/21 10:00 Oxygen Flow Rate 100 01/07/21 05:11 Body Mass Index 33.4 Const: General: no acute distress and other (Sedated on the vent) Eyes: Sclerae: sclerae normal EOM: EOMs intact bilaterally Neck: Neck: Yes no lymphadenopathy, Yes trachea midline and Yes supple Resp: Effort & Inspection: normal respiratory effort and no respiratory distress Auscultation: clear to auscultation bilaterally Cardio: Rate: regular rate Rhythm: regular rhythm Heart sounds: no gallops, no murmurs and no rubs GI: Palpation (GI): Soft to palpation and Other GI palpation findings present ( Nontender) Auscultation: normal bowel sounds Extrem: General: No clubbing, No cyanosis and Yes other (BKA bilateral) Objective Data Labs CBC & Chem 7: 01/29/21 05:30 01/29/21 05:30 Labs: Laboratory Results - last 24 hr 01/28/21 01/28/21 01/29/21 11:48 18:01 00:12 WBC RBC Hgb Hct MCV MCH MCHC RDW Plt Count MPV Immature Gran % (Auto) Neut % (Auto) Lymph % (Auto) [place] % (Auto) Eos % (Auto) Baso % (Auto) Lymph # (Auto) [place] # (Auto) Eos # (Auto) Baso # (Auto) Abs Immat Gran (auto) Absolute Neuts (auto) Absolute Nucleated RBC Nucleated RBC % (auto) Smear Tech's Comments VBG pH VBG pCO2 VBG pO2 VBG HCO3 VBG O2 Saturation VBG Base Excess Sodium Potassium Chloride Carbon Dioxide Anion Gap BUN Creatinine Estim Creat Clear Calc Estimated GFR POC Glucose 338 H 306 H 183 H Random Glucose Calcium Phosphorus Magnesium Albumin 01/29/21 01/29/21 01/29/21 05:27 05:30 05:30 WBC 4.0 L RBC 2.56 L Hgb 7.2 L Hct 23.7 L MCV 92.6 MCH 28.1 MCHC 30.4 L RDW 16.4 H Plt Count 82 L MPV 13.4 H Immature Gran % (Auto) 1.0 H Neut % (Auto) 63.5 Lymph % (Auto) 23.2 [place] % (Auto) 6.3 Eos % (Auto) 6.0 H Baso % (Auto) 0.0 Lymph # (Auto) 0.9 L [place] # (Auto) 0.3 Eos # (Auto) 0.2 Baso # (Auto) 0.0 Abs Immat Gran (auto) 0.04 H Absolute Neuts (auto) 2.5 Absolute Nucleated RBC 0.000 Nucleated RBC % (auto) 0.0 Smear Tech's Comments VERIFIED VBG pH 7.34 VBG pCO2 36 VBG pO2 57 VBG HCO3 20 L VBG O2 Saturation 85.0 VBG Base Excess -4.9 Sodium 147 H Potassium 3.9 Chloride 116 H Carbon Dioxide 22 Anion Gap 13 BUN 75 H Creatinine 2.62 H Estim Creat Clear Calc 48.6 Estimated GFR 27 POC Glucose Random Glucose 161 H D Calcium 8.4 Phosphorus 4.3 Magnesium 2.1 Albumin 3.2 L D 01/29/21 06:15 WBC RBC Hgb Hct MCV MCH MCHC RDW Plt Count MPV Immature Gran % (Auto) Neut % (Auto) Lymph % (Auto) [place] % (Auto) Eos % (Auto) Baso % (Auto) Lymph # (Auto) [place] # (Auto) Eos # (Auto) Baso # (Auto) Abs Immat Gran (auto) Absolute Neuts (auto) Absolute Nucleated RBC Nucleated RBC % (auto) Smear Tech's Comments VBG pH VBG pCO2 VBG pO2 VBG HCO3 VBG O2 Saturation VBG Base Excess Sodium Potassium Chloride Carbon Dioxide Anion Gap BUN Creatinine Estim Creat Clear Calc Estimated GFR POC Glucose 167 H Random Glucose Calcium Phosphorus Magnesium Albumin Microbiology Microbiology Results: Microbiology 01/22/21 10:29 Blood - Venous Blood Culture - Final No growth after 5 days. 01/22/21 10:20 Blood - Venous Blood Culture - Final No growth after 5 days. 01/19/21 08:06 Sputum - Suctioned Gram Stain - Final 01/19/21 08:06 Sputum - Suctioned Sputum Culture - Final Strep agalactiae (Grp B) 01/15/21 05:54 Blood - Central Line Blood Culture - Final No growth after 5 days. 01/15/21 05:54 Blood - Central Line Blood Culture - Final No growth after 5 days. 01/09/21 21:01 Sputum - Suctioned Gram Stain - Final 01/09/21 21:01 Sputum - Suctioned Sputum Culture - Final 01/07/21 05:25 Blood - Venous Blood Culture - Final No growth after 5 days. 01/07/21 05:18 Blood - Venous Blood Culture - Final No growth after 5 days. Progress Note: A&P Assessment and plan (1) Pulmonary aspiration: Status: Acute Assessment and Plan: Assessment: 45-year-old gentleman with multiple medical issues admitted with acute hypoxic respiratory failure secondary to COVID-19 ARDS further complicated by acute on chronic renal failure on the background of peripheral vascular disease and hepatitis-C cirrhosis. Plan: Neuro: No acute issues. Underlying history of CVA, previously on dual antiplatelet therapy, held secondary to recent GI bleed. Cardiac: No acute issues. Underlying history of hypertension. Pulmonary: Acute hypoxic respiratory failure secondary to COVID-19 ARDS requiring ventilatory support. Extubated 01/24/2021 required re-intubation on 01/25 secondary to recurrent aspirations. Now being planned for tracheostomy and parenteral gastrostomy. Renal: Acute on chronic renal failure , likely multifactorial. Nephrology ser vice care appreciated. Continue to monitor renal indices and urine output. Endo: Continue Lantus and sliding scale insulin. GI: No acute issues. ID: COVID-19. Completed dexamethasone. Being titrated off Solu-Medrol. Heme/Onc: No acute issues. Psych: No acute issues. Miscellaneous: No acute issues. Prophylaxis: Heparin, ppi Diet: Tube feeds Critical care time spent: 45 minutes (2) Thrombocytopenia associated with COVID-19: Status: Acute (3) Acute respiratory distress syndrome (ARDS) due to COVID-19 virus: Status: Acute (4) Acute on chronic kidney failure: Status: Acute (5) Acute respiratory failure with hypoxia: Status: Acute (6) Hepatitis C, chronic: Status: Acute (7) Cirrhosis: Status: Acute (8) Hypertension: Status: Acute (9) Diabetes: Status: Acute Quality Stroke Does the patient have a stroke diagnosis?: No VTE Prior VTE?: No VTE Risk Level:: Medical - moderate - high VTE Device Contraindication: Treatment Not Indicated VTE Drug Contraindication: N/A - Med Ordered
[2021-01-29 12:09] LABS: Glucose, Whole Blood 265 mg/dL (60-115)
[2021-01-29] MEDS: LORazepam 2 MG/ML VIAL IVPUSH ×2 (17:16→22:08)
[2021-01-29 17:57] LABS: Glucose, Whole Blood 299 mg/dL (60-115)
--- NOTE | 2021-01-29 18:36 | PC.NURSE ---
Remains intubated, AC settings 20/500/40/8 SpO2 mostly in the mid 90s with an occasional dip to 90 with RR30. Sedation max'd with Propofol and Fentanyl, breaking through on occasion, opening eyes spontaneously without stim. PRN Ativan order added today. One IVP dose given with good effect. Remains restrained for ETT protection. Lungs diminished with scattered faint rhonchi. Scant amounts of thick villegas secretions inline. More oral secretions noted today. Solumedrol dose to decrease starting Saturday01/30/21. Tube feeds continue at goal, with q6hr free water boluses and TID Prosource. BS heard in RLQ, no BM today. [place] draining excellent amounts of urine. Noon and 1800 blood sugars covered each with 6ux of Humalog SC. Repositioned per ICU protocol, oral care per vent bundle protocol. Skin remains intact. Bruising spots noted over abdomen d/t Heparin inj. Extremities elevated on pillows for pressure relief. Low grade temp today, max 100.2F Systolic max 177.
[2021-01-30] VITALS (33 sets, daily range): BP systolic 114–176; BP diastolic 60–89; PULSE 81–95; RESP 18–27; TEMP 36.8–37.6; O2SAT 88–95
[2021-01-30] MEDS: fentaNYL citrate/NS 1,000 MCG/100 ML PLAST..BAG 20 MCG IVCONT ×5 (00:24→19:27)
[2021-01-30] MEDS: Insulin Lispro 100 UNIT/ML 3 ML VIAL SUBCUT ×3 (00:31→18:11)
[2021-01-30] MEDS: 0.9 % Sodium Chloride Flush 3 ML SYRINGE IVFLUSH ×4 (00:32→23:45)
[2021-01-30 00:38] LABS: Glucose, Whole Blood 193 mg/dL (60-115)
[2021-01-30] MEDS: propofoL 1,000 MG/100 ML VIAL 36 MG IVCONT ×9 (01:44→22:15)
[2021-01-30 05:36] LABS: VBG Base Excess -5.7 mmol/L; VBG HCO3 19 mmol/L (22-26); VBG pCO2 38 mmHg; VBG pH 7.31 (7.32-7.43); VBG pO2 46 mmHg
[2021-01-30] MEDS: Pantoprazole Sodium 40 MG/10 ML VIAL IVPUSH (05:37)
[2021-01-30 05:38] LABS: Glucose, Whole Blood 154 mg/dL (60-115)
[2021-01-30 05:39] LABS: Eosinophils Absolute Auto 0.3 X10*3/uL (0.0-0.4); Imm Gran Abs Auto 0.05 X10*3/uL (0.00-0.03); Imm Gran Pct Auto 1.1 % (0.0-0.4); PLT ABN DIST 1; SCAN SMEAR FLAG 1
[2021-01-30 05:41] LABS: Basophils Percent Auto 0.2 % (0-2); Eosinophils Percent Auto 5.7 % (0-4); Hemoglobin 7.8 g/dl (14.0-18.0); Lymphocytes Absolute Auto 1.2 X10*3/uL (1.2-4.9); Lymphocytes Percent Auto 27.1 % (20-40); Mean Corpuscular Hemoglobin 28.1 pg (27.0-33.0); Mean Corpuscular Volume 93.5 fL (80-98); Mean Platelet Volume 14.1 fL (9.4-12.4); Monocytes Absolute Auto 0.3 X10*3/uL (0.1-1.2); Monocytes Percent Auto 5.7 % (2-11); Neutrophils Absolute Auto 2.8 X10*3/uL (2.0-8.3); Neutrophils Percent Auto 60.2 % (45-73); Red Blood Count 2.78 X10*6/uL (4.60-5.80); Red Cell Distribution Width 16.2 % (11.0-16.0); White Blood Count 4.6 X10*3/uL (4.8-10.8)
[2021-01-30 05:46] LABS: Platelet Count 84 X10*3/uL (160-400)
[2021-01-30 05:47] LABS: MANUAL DIFF FLAG NO
[2021-01-30 06:05] LABS: Venous Blood Gas Refer to POC result
[2021-01-30 06:19] LABS: Albumin Level 2.8 g/dL (3.5-5.0); Anion Gap 14 (12-20); Blood Urea Nitrogen 78 mg/dL (9-16); Carbon Dioxide 20 mmol/L (22-29); Chloride 115 mmol/L (96-108); Creatinine Clr Calc Pharmacy 48.7; Estimated Glomerular Filt Rate 27; Glucose Random 190 mg/dL (60-115); Magnesium 1.9 mg/dL (1.6-2.6); Phosphorus 4.3 mg/dL (2.7-4.5); Potassium 3.9 mmol/L (3.3-5.1); Sodium 145 mmol/L (135-145)
[2021-01-30] MEDS: methylPREDNISolone Sod Succ 40 MG/ML VIAL 20 MG IVPUSH (08:18)
[2021-01-30] MEDS: cloNIDine 0.1 MG PATCH.TDWK TRANSDERMA (08:18)
[2021-01-30] MEDS: Insulin Glargine,Hum.rec.anlog 100 UNIT/ML 10 ML VIAL 40 UNIT SUBCUT (08:18)
[2021-01-30] MEDS: Chlorhexidine Gluc Oral Rinse 15 ML MOUTHWASH BUCCAL ×3 (08:18→22:10)
--- NOTE | 2021-01-30 08:30 | P.PNNP_ITS ---
Subjective Subjective Date of Service: 01/30/21 Interval history: renal f/u Pt on COVID isolation Intubated Pt with acute hypoxic respiratory failure, COVID-19 ARDS, critical care myopat hy, pulmonary aspiration, acute on chronic kidney failure No events overnight. Physical Exam Vital Signs: Vital Signs: Last Vital Signs Temp 98.2 F 01/30/21 08:00 Pulse 82 01/30/21 08:18 Resp 20 01/30/21 08:00 BP 137/70 01/30/21 08:18 Pulse Ox 91 L 01/30/21 08:00 Oxygen Flow Rate 100 01/07/21 05:11 Body Mass Index 33.4 Const: Other: Intubated HENMT: Mouth: other (Dry mucosa - Intubated ) Eyes: Pupils: Equal, round and reactive pupils present Neck: Neck: Yes normal visual inspection and Yes full ROM Resp: Effort & Inspection: decreased respiratory effort Auscultation: rhonchi Cardio: Jugular venous distension: no JVD Heart sounds: S1 normal heart sound present and S2 normal heart sound present GI: Inspection: Yes normal to inspection Palpation (GI): Soft to palpation Neuro: Cranial nerves: Yes Equal, round and reactive pupils present Objective Data Labs CBC & Chem 7: 01/30/21 05:20 01/30/21 05:20 Labs: Laboratory Results - last 24 hr 01/29/21 01/29/21 01/30/21 12:05 17:44 00:29 WBC RBC Hgb Hct MCV MCH MCHC RDW Plt Count MPV Immature Gran % (Auto) Neut % (Auto) Lymph % (Auto) Republic % (Auto) Eos % (Auto) Baso % (Auto) Lymph # (Auto) [place] # (Auto) Eos # (Auto) Baso # (Auto) Abs Immat Gran (auto) Absolute Neuts (auto) Absolute Nucleated RBC Nucleated RBC % (auto) VBG pH VBG pCO2 VBG pO2 VBG HCO3 VBG O2 Saturation VBG Base Excess Sodium Potassium Chloride Carbon Dioxide Anion Gap BUN Creatinine Estim Creat Clear Calc Estimated GFR POC Glucose 265 H 299 H 193 H Random Glucose Calcium Phosphorus Magnesium Albumin 01/30/21 01/30/21 01/30/21 05:20 05:20 05:25 WBC 4.6 L RBC 2.78 L Hgb 7.8 L Hct 26.0 L MCV 93.5 MCH 28.1 MCHC 30.0 L RDW 16.2 H Plt Count 84 L MPV 14.1 H Immature Gran % (Auto) 1.1 H Neut % (Auto) 60.2 Lymph % (Auto) 27.1 Republic % (Auto) 5.7 Eos % (Auto) 5.7 H Baso % (Auto) 0.2 Lymph # (Auto) 1.2 Republic # (Auto) 0.3 Eos # (Auto) 0.3 Baso # (Auto) 0.0 Abs Immat Gran (auto) 0.05 H Absolute Neuts (auto) 2.8 Absolute Nucleated RBC 0.000 Nucleated RBC % (auto) 0.0 VBG pH VBG pCO2 VBG pO2 VBG HCO3 VBG O2 Saturation VBG Base Excess Sodium 145 Potassium 3.9 Chloride 115 H Carbon Dioxide 20 L Anion Gap 14 BUN 78 H Creatinine 2.61 H Estim Creat Clear Calc 48.7 Estimated GFR 27 POC Glucose 154 H Random Glucose 190 H Calcium 8.0 L Phosphorus 4.3 Magnesium 1.9 Albumin 2.8 L 01/30/21 05:27 WBC RBC Hgb Hct MCV MCH MCHC RDW Plt Count MPV Immature Gran % (Auto) Neut % (Auto) Lymph % (Auto) [place] % (Auto) Eos % (Auto) Baso % (Auto) Lymph # (Auto) [place] # (Auto) Eos # (Auto) Baso # (Auto) Abs Immat Gran (auto) Absolute Neuts (auto) Absolute Nucleated RBC Nucleated RBC % (auto) VBG pH 7.31 L VBG pCO2 38 VBG pO2 46 VBG HCO3 19 L VBG O2 Saturation 73.0 VBG Base Excess -5.7 Sodium Potassium Chloride Carbon Dioxide Anion Gap BUN Creatinine Estim Creat Clear Calc Estimated GFR POC Glucose Random Glucose Calcium Phosphorus Magnesium Albumin Microbiology Microbiology Results: Microbiology 01/22/21 10:29 Blood - Venous Blood Culture - Final No growth after 5 days. 01/22/21 10:20 Blood - Venous Blood Culture - Final No growth after 5 days. 01/19/21 08:06 Sputum - Suctioned Gram Stain - Final 01/19/21 08:06 Sputum - Suctioned Sputum Culture - Final Strep agalactiae (Grp B) 01/15/21 05:54 Blood - Central Line Blood Culture - Final No growth after 5 days. 01/15/21 05:54 Blood - Central Line Blood Culture - Final No growth after 5 days. 01/09/21 21:01 Sputum - Suctioned Gram Stain - Final 01/09/21 21:01 Sputum - Suctioned Sputum Culture - Final 01/07/21 05:25 Blood - Venous Blood Culture - Final No growth after 5 days. 01/07/21 05:18 Blood - Venous Blood Culture - Final No growth after 5 days. Assessment & Plan Time Spent With Patient Time: KIRILL CKD at baseline Mild Hypernatremia and met acidosis KIRILL due to Tubular injury - Multi factorial including COVID -19 Cardiorespiratory support Non Oliguric Cr stable around 2.6 Avoid nephrotoxins Total time spent is greater than 50% in coordination of care (as documented) at patient's floor/unit and/or counseling patient: Procedures Date of Service Date of Service: 01/30/21 Progress Note: Quality Stroke Does the patient have a stroke diagnosis?: No
[2021-01-30] MEDS: Heparin Sodium,Porcine 5,000 UNIT/ML VIAL 5000 UNIT SUBCUT ×2 (09:15→22:10)
[2021-01-30] MEDS: Lactulose 20 GM/30 ML SOLUTION 30 GM OG-TUBE (10:29)
--- NOTE | 2021-01-30 11:26 | MHC.CM.PN ---
Pt remains in ICU awaiting Peg/Trach placement: ? OR time for 01/31. Calls placed to pts dtr and mother Nancy. Nancy seemingly is having difficulty understanding pt's severity and need for tool smith acute care after trach placement despite daily calls and updates on progress and d/c plan. Why can't he come home after? Won't he be better? The doctor told us there is a 55% chance he'll get better. Family has had several group discussions with ICU MD's re: pt status/prognosis and Facetimes with pt almost daily. I don't understand why he needs to go so far and can't go home. Re-educated Nancy on LTAC criteria/new trach and need for continuous medical care. Suggested Nancy contact Elizabeth for a discussion of pt's tool smith needs and call to speak with the ICU MD if needed.
[2021-01-30 12:09] LABS: Glucose, Whole Blood 309 mg/dL (60-115)
--- NOTE | 2021-01-30 16:27 | PM.CCPN ---
Subjective Subjective Date of Service: 01/30/21 Interval History: Mr. Preciado was admitted to ICU on January 07 with acute respiratory failure 2? COVID ARDS, hyperglycemia, KIRILL, and metabolic acidosis. 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 The patient had the [employer]hay COVID vaccine on October 24. Reportedly lives at home with his . His mother is the HCP. HISTORY OF PRESENT ILLNESS: The patient recently returned from a trip to [place] and came to our ED on January 01 with 2 days of cough, chest congestion, and wheezing. Multiple family members had similar symptoms. Additionally, he reported bilateral lower abdominal pain and small amounts of bright red blood per rectum for the prior 2 weeks. In the ED, he tested positive for COVID-19. Sat was 97% on RA. Hemoglobin was noted to be 9.8 compared to a baseline of around 11-12. DDimer and CRP were only mildly elevated. CXR showed NAD. CT of the abdomen and pelvis without contrast showed a 4.5 cm segment of distal transverse colon with circumferential wall thickening and luminal narrowing that could represent either spasm or colonic mass. There was also a masslike density near the ileocecal valve. Also demonstrated were splenomegaly and small upper abdominal varices but no ascites. The lungs were clear by my reading; the radiologist read a few questionable small areas of ground-glass opacities. He was admitted and treated with steroids for asthma exacerbation. His wheezing resolved. DAPT for his stroke was held and his Hb was stable and he had no further bleeding. His hematochezia was thought very possibly due to hemorrhoids found on exam. Bec of his COVID status, further GI workup w colonoscopy was deferred, as was GI f/u and treatment for his Hep C. He was discharged home on January 04. On January 07 he represented to the ED in moderate respiratory distress. SpO2 was low 70s on room air, 88% on O2 FM, and 94% on 100% HFNC. Labs were notable for WBC 13, Hb 10.4, BUN/creat were 68/3.1 (from 53/3/0 on 01/04), Bicarb was 13, K was 5.2, gluc was 546, lactate was 3.2, alb was 2.2. Acetone was negative. DDimer was bumped to 1581 (from 506 on 01/03), CRP was up to 14. ABG (on ?100% FiO2) showed 7.32/19/88/-13. CXR showed patchy multifocal opacities in both lungs, c/w COVID. CT abdomen done for f/u of previous CT and bec of lactic acidosis showed the same two equivocal findings in the colon, one at the ileocecal valve region and one in the distal transverse colon ?which require further assessment in the setting of GI bleeding to exclude underlying malignancy.? Hepatic cirrhosis with portal venous hypertension as evidenced by splenomegaly and small upper abdominal varices was again demonstrated, w no significant ascites. The lung cuts showed severe bilat patchy opacities suggestive of infectious/inflammatory process. The patient was admitted to ICU and treated with dexamethasone and insulin drip. U/o and renal fxn improved slightly and his lactic and metabolic acidoses resolved. However, his oxygenation deteriorated, and he required tracheal intubation on 01/08. The next day we were able to get his FiO2 down as low as 60%. Echo showed moderate LVH, normal LV size and fxn, normal RV size, normal RVSP, and IVC measured 1.9cm w about 50% insp collapse. He was started him on a 5-day course of ivermectin, along w vit D and thimaine, and we upped his steroids to Solumedrol 80mg bid. On 01/10 we started him on losartan bec of HTN. HOSPITAL COURSE since then: Renal indices have waxed and waned. A routine CXR done 01/13 showed a new small right apical PTX and pneumomediastinum, which we initially just watched. Adding Precedex improved his sedation and allow the reduction in his inspiratory pressures. It caused his BP to rise, however, which was refractory to IV labetolol, so he was started on nicardipine. Follow-up chest x-rays initially showed resolution of the pneumothorax and pneumomediastinum. However, a couple of days later, his Sat?s decreased and a CXR showed reappearance and enlargement of the PTX. A Gonzalo pneumothorax drainage catheter was placed. The patient had to have an ETT change bec of a cuff leak on January 16. His pneumothorax drainage catheter was pulled on 01/20. He was ultimately extubated on 01/24, but had to be reintubated the next day bec of a massive left lung aspiration. He required 100% FiO2. He was given 48 hrs of Levaquin. His FiO2 has gradually come down to as low as 30% today. This morning he is well sedated on propofol @ 50ug, Fent 200ug. HR 80?s, SR. BP 159/76 on clonidine 0.1 TTS. RR is 20 on AC 20/500/35%/+8, with Ve 11L, PIP 34, ETCO2 31, Sat 91%. CVBG this morning showed 7.31/38/-5. He?s afebrile. T-max 100.2? yesterday afternoon. His respiratory pattern is smooth with excellent excursion and no accessory muscle use. No JVD at 30?. His right IJ triple-lumen catheter insertion site looks very clean. Normal exp phase. Maybe trace central edema. Had a large BM today after a dose of lactulose. LABORATORY DATA: As below. Notably, Hb is steady since transfusion of 1 unit RBCs on 01/27. Plat count rising slowly. MICROBIOLOGY: Sputum Gram stain today shows 3+ polys, 2+ GPC, 1+ GNR. Last blood cultures 01/22 were negative. 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 The patient had the Abhay & Abhay COVID vaccine on October 24. 1. Bilat pulmon infiltrates 2? COVID pneumonia. Symptom onset date approx. December 30. Unclear if the J&J vaccine had any salutary benefit. Had a course of ivermectin, Solu-Medrol, vit D, and thiamine. Biomarkers are down, and he hasn?t progressed to gross renal failure or sustained requirement for 100% FiO2. 2. Resolving ARDS 2? above. 3. Hypoxemic respiratory failure. Plan tracheostomy and PEG this week. 4. Pneumothorax/pneumomediastinum. Resolved. 5. HTN. We?ll increase the clonidine to 0.3mg TTS. 6. Acute on chronic kidney injury. Likely 2? COVID. Indices wax and wane. I?ll recheck another urine Na. 7. GI. Slow Hb loss, no gross GI bleeding. 8. ID. No evidence of bacterial infection at this point, no reason to consider antibiotics. 9. Hyperglycemia. I?ll up his Lantus dose and change to bid. 10. Metabolic. Hypernatremia. We?ll add free water. Brought his potassium down w [facility], and now on Nepro. Nonanion gap metabolic acidosis, presumably from renal dz, is stable. Stopped his phosphate binder. 11. Nutrition. On Nepro with added protein supplement, plus calories from the propofol. 12. Triple lumen CVC. OK for now. Eventually change to PICC line. Critical care time (including full chart rev, hospital course summary, mult d/w Dr Pitts, consult w thoracic): 100+ min. Critical Care Time (minutes): 100 Physical Exam Vital Signs: Vital Signs: Last Vital Signs Temp 99.0 F 01/30/21 16:00 Pulse 92 01/30/21 16:00 Resp 23 H 01/30/21 16:00 BP 143/78 H 01/30/21 16:00 Pulse Ox 92 01/30/21 16:00 Oxygen Flow Rate 100 01/07/21 05:11 Body Mass Index 33.4 Objective Data Labs CBC & Chem 7: 01/30/21 05:20 01/30/21 05:20 Labs: Laboratory Results - last 24 hr 01/29/21 01/30/21 01/30/21 17:44 00:29 05:20 WBC 4.6 L RBC 2.78 L Hgb 7.8 L Hct 26.0 L MCV 93.5 MCH 28.1 MCHC 30.0 L RDW 16.2 H Plt Count 84 L MPV 14.1 H Immature Gran % (Auto) 1.1 H Neut % (Auto) 60.2 Lymph % (Auto) 27.1 [place] % (Auto) 5.7 Eos % (Auto) 5.7 H Baso % (Auto) 0.2 Lymph # (Auto) 1.2 [place] # (Auto) 0.3 Eos # (Auto) 0.3 Baso # (Auto) 0.0 Abs Immat Gran (auto) 0.05 H Absolute Neuts (auto) 2.8 Absolute Nucleated RBC 0.000 Nucleated RBC % (auto) 0.0 VBG pH VBG pCO2 VBG pO2 VBG HCO3 VBG O2 Saturation VBG Base Excess Sodium Potassium Chloride Carbon Dioxide Anion Gap BUN Creatinine Estim Creat Clear Calc Estimated GFR POC Glucose 299 H 193 H Random Glucose Calcium Phosphorus Magnesium Albumin 01/30/21 01/30/21 01/30/21 05:20 05:25 05:27 WBC RBC Hgb Hct MCV MCH MCHC RDW Plt Count MPV Immature Gran % (Auto) Neut % (Auto) Lymph % (Auto) [place] % (Auto) Eos % (Auto) Baso % (Auto) Lymph # (Auto) [place] # (Auto) Eos # (Auto) Baso # (Auto) Abs Immat Gran (auto) Absolute Neuts (auto) Absolute Nucleated RBC Nucleated RBC % (auto) VBG pH 7.31 L VBG pCO2 38 VBG pO2 46 VBG HCO3 19 L VBG O2 Saturation 73.0 VBG Base Excess -5.7 Sodium 145 Potassium 3.9 Chloride 115 H Carbon Dioxide 20 L Anion Gap 14 BUN 78 H Creatinine 2.61 H Estim Creat Clear Calc 48.7 Estimated GFR 27 POC Glucose 154 H Random Glucose 190 H Calcium 8.0 L Phosphorus 4.3 Magnesium 1.9 Albumin 2.8 L 01/30/21 11:53 WBC RBC Hgb Hct MCV MCH MCHC RDW Plt Count MPV Immature Gran % (Auto) Neut % (Auto) Lymph % (Auto) [place] % (Auto) Eos % (Auto) Baso % (Auto) Lymph # (Auto) [place] # (Auto) Eos # (Auto) Baso # (Auto) Abs Immat Gran (auto) Absolute Neuts (auto) Absolute Nucleated RBC Nucleated RBC % (auto) VBG pH VBG pCO2 VBG pO2 VBG HCO3 VBG O2 Saturation VBG Base Excess Sodium Potassium Chloride Carbon Dioxide Anion Gap BUN Creatinine Estim Creat Clear Calc Estimated GFR POC Glucose 309 H Random Glucose Calcium Phosphorus Magnesium Albumin Microbiology Microbiology Results: Microbiology 01/30/21 11:01 Sputum - Suctioned Gram Stain - Final 01/22/21 10:29 Blood - Venous Blood Culture - Final No growth after 5 days. 01/22/21 10:20 Blood - Venous Blood Culture - Final No growth after 5 days. 01/19/21 08:06 Sputum - Suctioned Gram Stain - Final 01/19/21 08:06 Sputum - Suctioned Sputum Culture - Final Strep agalactiae (Grp B) 01/15/21 05:54 Blood - Central Line Blood Culture - Final No growth after 5 days. 01/15/21 05:54 Blood - Central Line Blood Culture - Final No growth after 5 days. 01/09/21 21:01 Sputum - Suctioned Gram Stain - Final 01/09/21 21:01 Sputum - Suctioned Sputum Culture - Final 01/07/21 05:25 Blood - Venous Blood Culture - Final No growth after 5 days. 01/07/21 05:18 Blood - Venous Blood Culture - Final No growth after 5 days. Quality Stroke Does the patient have a stroke diagnosis?: No VTE Prior VTE?: No VTE Risk Level:: Medical - moderate - high VTE Device Contraindication: Treatment Not Indicated VTE Drug Contraindication: N/A - Med Ordered Critical Care Time Critical Care Time (minutes): 90
[2021-01-30] MEDS: cloNIDine 0.3 MG PATCH.TDWK TRANSDERMA (16:40)
[2021-01-30 18:23] LABS: Glucose, Whole Blood 296 mg/dL (60-115)
[2021-01-31] VITALS (29 sets, daily range): BP systolic 116–178; BP diastolic 59–90; PULSE 58–104; RESP 14–29; TEMP 37.6–38.4; O2SAT 87–100; BMI 34.2
[2021-01-31] MEDS: propofoL 1,000 MG/100 ML VIAL 36 MG IVCONT ×5 (00:01→10:16)
[2021-01-31] MEDS: fentaNYL citrate/NS 1,000 MCG/100 ML PLAST..BAG 20 MCG IVCONT ×6 (00:01→21:30)
[2021-01-31] MEDS: Insulin Lispro 100 UNIT/ML 3 ML VIAL SUBCUT ×4 (00:09→18:10)
[2021-01-31 00:17] LABS: Glucose, Whole Blood 216 mg/dL (60-115)
[2021-01-31 05:35] LABS: VBG Base Excess -6.8 mmol/L; VBG HCO3 17 mmol/L (22-26); VBG pCO2 32 mmHg; VBG pH 7.34 (7.32-7.43); VBG pO2 38 mmHg
[2021-01-31 06:04] LABS: Hemoglobin 7.9 g/dl (14.0-18.0); Mean Corpuscular Volume 92.4 fL (80-98); NRBC Pct Auto 0.4 /100WBC (0.0-0.2); PLT ABN DIST 1
[2021-01-31 06:06] LABS: Hematocrit 25.7 % (42-52); Mean Corpuscular HGB Conc 30.7 g/dl (31.0-36.0); Mean Corpuscular Hemoglobin 28.4 pg (27.0-33.0); Mean Platelet Volume 12.9 fL (9.4-12.4); Red Blood Count 2.78 X10*6/uL (4.60-5.80); Red Cell Distribution Width 16.2 % (11.0-16.0); White Blood Count 5.2 X10*3/uL (4.8-10.8)
[2021-01-31 06:10] LABS: Platelet Count 88 X10*3/uL (160-400); Prothrombin Time 11.5 SEC (9.9-13.0)
[2021-01-31 06:13] LABS: D Dimer 652 NG/ML; Partial Thromboplastin Time 27.1 SEC (24.1-38.0)
[2021-01-31] MEDS: Pantoprazole Sodium 40 MG/10 ML VIAL IVPUSH (06:15)
[2021-01-31 06:22] LABS: Lactic Acid 0.7 mmol/L (0.5-2.0)
[2021-01-31 06:42] LABS: Glucose, Whole Blood 185 mg/dL (60-115)
[2021-01-31 06:45] LABS: Alanine Aminotransferase 19 U/L (0-40); Albumin Level 2.6 g/dL (3.5-5.0); Alkaline Phosphatase 79 U/L (39-117); Anion Gap 14 (12-20); Aspartate Amino Transferase 18 U/L (5-37); Bilirubin Total 0.7 mg/dL (0.0-1.0); Blood Urea Nitrogen 80 mg/dL (9-16); C Reactive Protein 7.28 mg/dL (< or = 0.50); Calcium 7.9 mg/dL (8.4-10.2); Carbon Dioxide 19 mmol/L (22-29); Chloride 114 mmol/L (96-108); Creatinine Clr Calc Pharmacy 48.4; Estimated Glomerular Filt Rate 26; Glucose Random 200 mg/dL (60-115); Magnesium 1.9 mg/dL (1.6-2.6); Phosphorus 4.2 mg/dL (2.7-4.5); Potassium 3.8 mmol/L (3.3-5.1); Sodium 143 mmol/L (135-145); Total Protein 5.6 g/dL (6.5-8.0)
[2021-01-31 06:52] LABS: Ferritin 261 ng/mL (20-250)
[2021-01-31 08:02] LABS: Venous Blood Gas Refer to POC result
[2021-01-31] MEDS: 0.9 % Sodium Chloride Flush 3 ML SYRINGE IVFLUSH ×2 (08:16→16:31)
[2021-01-31] MEDS: Chlorhexidine Gluc Oral Rinse 15 ML MOUTHWASH BUCCAL ×3 (11:09→21:30)
[2021-01-31] MEDS: Heparin Sodium,Porcine 5,000 UNIT/ML VIAL 5000 UNIT SUBCUT ×2 (11:10→21:31)
[2021-01-31] MEDS: methylPREDNISolone Sod Succ 40 MG/ML VIAL 20 MG IVPUSH (11:10)
[2021-01-31] MEDS: Insulin Glargine,Hum.rec.anlog 100 UNIT/ML 10 ML VIAL 25 UNIT SUBCUT ×2 (11:10→21:30)
[2021-01-31 12:07] LABS: Glucose, Whole Blood 268 mg/dL (60-115)
--- NOTE | 2021-01-31 16:07 | MHC.CM.PN ---
Pt remains in ICU on vent support secondary to COVID. Planning for a peg/trach placement this week in anticipation of LTAC. Pt will need a [employer] date prior to transfer. Forms in process of being completed. Family called after ICU rounds for updates on pt status.
--- NOTE | 2021-01-31 17:17 | PC.NURSE ---
S/E Temp 100.6, WBC 5.2 Propofol gtt turned off at 1215 for sedation vacation per MD ; Continued on Fentanyl gtt Positive cough & gag, no pain response, not following commands Pupils 3mm, PERRLA, fixed to right - MD aware SR/ST 100's, ST depression, no ectopy R IJ TLC patent - dressing & claves changed 01/30 - in since 01/09 - MD aware Clonidine patch increased to 0.3mg yesterday - SBP 120-160's Generalized edema LS rhonchi bilateral upper bases ; thick cream inline secretions 7.5 ETT @ 26cm ; Vent settings unchanged: AC 16/500/8/30% - spo2 90-92% Continued on solumedrol 20mg IV ; SC pending Abdomen soft, hypoactive bowel sounds ; Last BM 01/30 Continued on Nephro @15cc/hr, 300 water flushes q6 & Prosouce TID ; Residuals 0-10 POC q6 - Continued on Humalog SS & Lantus 25u BID [place] patent - 75-150cc/hr No skin integrity concerns, redness blanchable to coccyx Bathed, repo q2hr, prevlon pad & air loss bed in place Family updated by Tonya social work case manager Plan for trach & peg per
--- NOTE | 2021-01-31 17:58 | PM.CCPN ---
Subjective Subjective Date of Service: 01/31/21 Interval History: Mr. Preciado was admitted to ICU on January 07 with acute respiratory failure 2? COVID ARDS, hyperglycemia, KIRILL, and metabolic acidosis. 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 The patient had the [employer]hay COVID vaccine on October 24. Reportedly lives at home with his . His mother is the HCP. HISTORY OF PRESENT ILLNESS: The patient recently returned from a trip to [place] and came to our ED on January 01 with 2 days of cough, chest congestion, and wheezing. Multiple family members had similar symptoms. Additionally, he reported bilateral lower abdominal pain and small amounts of bright red blood per rectum for the prior 2 weeks. In the ED, he tested positive for COVID-19. Sat was 97% on RA. Hemoglobin was noted to be 9.8 compared to a baseline of around 11-12. DDimer and CRP were only mildly elevated. CXR showed NAD. CT of the abdomen and pelvis without contrast showed a 4.5 cm segment of distal transverse colon with circumferential wall thickening and luminal narrowing that could represent either spasm or colonic mass. There was also a masslike density near the ileocecal valve. Also demonstrated were splenomegaly and small upper abdominal varices but no ascites. The lungs were clear by my reading; the radiologist read a few questionable small areas of ground-glass opacities. He was admitted and treated with steroids for asthma exacerbation. His wheezing resolved. DAPT for his stroke was held and his Hb was stable and he had no further bleeding. His hematochezia was thought very possibly due to hemorrhoids found on exam. Bec of his COVID status, further GI workup w colonoscopy was deferred, as was GI f/u and treatment for his Hep C. He was discharged home on January 04. On January 07 he represented to the ED in moderate respiratory distress. SpO2 was low 70s on room air, 88% on O2 FM, and 94% on 100% HFNC. Labs were notable for WBC 13, Hb 10.4, BUN/creat were 68/3.1 (from 53/3/0 on 01/04), Bicarb was 13, K was 5.2, gluc was 546, lactate was 3.2, alb was 2.2. Acetone was negative. DDimer was bumped to 1581 (from 506 on 01/03), CRP was up to 14. CXR showed patchy multifocal opacities in both lungs, c/w COVID. CT abdomen done for f/u of previous CT and bec of lactic acidosis showed the same two equivocal findings in the colon, one at the ileocecal valve region and one in the distal transverse colon ?which require further assessment in the setting of GI bleeding to exclude underlying malignancy.? Hepatic cirrhosis with portal venous hypertension as evidenced by splenomegaly and small upper abdominal varices was again demonstrated, w no significant ascites. The lung cuts showed severe bilat patchy opacities suggestive of infectious/inflammatory process. The patient was admitted to ICU and treated with dexamethasone and insulin drip. U/o and renal fxn improved slightly and his lactic and metabolic acidoses resolved. However, his oxygenation deteriorated, and he required tracheal intubation on 01/08. The next day we were able to get his FiO2 down as low as 60%. Echo showed moderate LVH, normal LV size and fxn, normal RV size, normal RVSP, and IVC measured 1.9cm w about 50% insp collapse. He was started him on a 5-day course of ivermectin, along w vit D and thimaine, and we upped his steroids to Solumedrol 80mg bid. On 01/10 we started him on losartan bec of HTN. HOSPITAL COURSE since then: Renal indices have waxed and waned. A routine CXR done 01/13 showed a new small right apical PTX and pneumomediastinum, which we initially just watched. Adding Precedex improved his sedation and allowed reduction of his inspiratory pressures. It caused his BP to rise, however, which was refractory to IV labetolol, so he was started on nicardipine. Follow-up chest x-rays initially showed resolution of the pneumothorax and pneumomediastinum. However, a couple of days later, his Sat?s decreased and a CXR showed reappearance and enlargement of the PTX. A Gonzalo pneumothorax drainage catheter was placed. The patient had an ETT change on January 16 bec of a cuff leak. His pneumothorax drainage catheter was pulled on 01/20. He was ultimately extubated on 01/24, but had to be reintubated the next day bec of a massive left lung aspiration. He required 100% FiO2. He was given 48 hrs of Levaquin. His FiO2 has gradually come down to as low as 30%. This morning we turned his propofol off for a propofol holdy. Fent is still going at 200ug. At 6 hours, his eyes are open, but he?s 100% noninteractive, no response to confrontation, no spontaneous movement, and hardly even a grimace to pain. See vital signs below. He?s on clonidine 0.3 TTS. On AC 16/500/35%/+8, RR is 26, with Ve 13L, PIP 35, ETCO2 37, Sat 93%. CVBG this morning showed 7.34/32/-6. He?s afebrile. T-max 100.6?. His respiratory pattern is smooth with excellent excursion and no accessory muscle use. No JVD at 30?. Chest is clear w normal exp phase. Abdomen benign. Trace central edema. LABORATORY DATA: As below. Notably, Hb is steady. Plat count rising slowly. Sodium is down to 143. BUN/creatinine up slightly to 80/2.6. Urine sodium last night was 52. DDimer is 600, ferritin is 261, CRP is 7.2, albumin is 2.6. MICROBIOLOGY: Sputum Gram stain today shows 3+ polys, 2+ GPC, 1+ GNR. Cx is growing Group B strep. Last blood cultures 01/22 were negative. 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 The patient had the Abhay & Abhay COVID vaccine on October 24. 1. Bilat pulmon infiltrates 2? COVID pneumonia. Symptom onset date approx. December 30. Unclear if the J&J vaccine had any salutary benefit. Has finished a course of ivermectin, Solu-Medrol, vit D, and thiamine. Biomarkers are down, and he hasn?t progressed to gross renal failure or sustained requirement for 100% FiO2. 2. Resolving ARDS 2? above. 3. Pneumothorax/pneumomediastinum. Resolved. 4. Hypoxemic respiratory failure. Plan tracheostomy and PEG this week. 5. HTN. We increased the clonidine yesterday to 0.3mg TTS. I will add metoprolol. 6. Acute on chronic kidney injury. Likely 2? COVID. Indices wax and wane. Urine Na is not suggestive of hypovolemia. 7. GI. No gross GI bleeding. 8. ID. Altho w FiO2 35%, it?s almost a certainty that he doesn?t have pneumonia, we?ll give him a three day course of ceftriaxone for the sputum. 9. Hyperglycemia. I?ll up his Lantus dose and change to bid. 10. Metabolic. Hypernatremia. On free water. Brought his potassium down w LoKelma, and now on Nepro. Nonanion gap metabolic acidosis, presumably from renal dz, is stable. Stopped his phosphate binder. 11. Nutrition. At least mild PCM. On Nepro with added protein supplement, plus calories from the propofol. 12. Triple lumen CVC. OK for now. Eventually change to PICC line. 13. DVT proph. Increase heparin to tid. Critical care time: 55 min. Critical Care Time (minutes): 55 Physical Exam Vital Signs: Vital Signs: Last Vital Signs Temp 100.6 F H 01/31/21 16:00 Pulse 102 H 01/31/21 17:00 Resp 28 H 01/31/21 17:00 BP 175/90 H 01/31/21 17:00 Pulse Ox 93 01/31/21 17:00 Oxygen Flow Rate 100 01/07/21 05:11 Body Mass Index 34.2 Objective Data Labs CBC & Chem 7: 01/31/21 05:23 01/31/21 05:23 Labs: Laboratory Results - last 24 hr 01/30/21 01/31/21 01/31/21 18:11 00:04 05:23 WBC RBC Hgb Hct MCV MCH MCHC RDW Plt Count MPV Absolute Nucleated RBC Nucleated RBC % (auto) PT 11.5 D INR 1.0 APTT 27.1 D D-Dimer 652 VBG pH VBG pCO2 VBG pO2 VBG HCO3 VBG O2 Saturation VBG Base Excess Sodium Potassium Chloride Carbon Dioxide Anion Gap BUN Creatinine Estim Creat Clear Calc Estimated GFR POC Glucose 296 H 216 H Random Glucose Lactic Acid Calcium Phosphorus Magnesium Ferritin Total Bilirubin AST ALT Alkaline Phosphatase C-Reactive Protein Total Protein Albumin Blood Type Antibody Screen 01/31/21 01/31/21 01/31/21 05:23 05:23 05:23 WBC 5.2 RBC 2.78 L Hgb 7.9 L Hct 25.7 L MCV 92.4 MCH 28.4 MCHC 30.7 L RDW 16.2 H Plt Count 88 L MPV 12.9 H Absolute Nucleated RBC 0.020 H Nucleated RBC % (auto) 0.4 H PT INR APTT D-Dimer VBG pH VBG pCO2 VBG pO2 VBG HCO3 VBG O2 Saturation VBG Base Excess Sodium 143 Potassium 3.8 Chloride 114 H Carbon Dioxide 19 L Anion Gap 14 BUN 80 H* Creatinine 2.66 H Estim Creat Clear Calc 48.4 Estimated GFR 26 POC Glucose Random Glucose 200 H Lactic Acid 0.7 Calcium 7.9 L Phosphorus 4.2 Magnesium 1.9 Ferritin 261 H Total Bilirubin 0.7 AST 18 ALT 19 Alkaline Phosphatase 79 C-Reactive Protein 7.28 H Total Protein 5.6 L Albumin 2.6 L Blood Type Antibody Screen 01/31/21 01/31/21 01/31/21 05:23 05:27 06:21 WBC RBC Hgb Hct MCV MCH MCHC RDW Plt Count MPV Absolute Nucleated RBC Nucleated RBC % (auto) PT INR APTT D-Dimer VBG pH 7.34 VBG pCO2 32 VBG pO2 38 VBG HCO3 17 L VBG O2 Saturation 61.0 VBG Base Excess -6.8 Sodium Potassium Chloride Carbon Dioxide Anion Gap BUN Creatinine Estim Creat Clear Calc Estimated GFR POC Glucose 185 H Random Glucose Lactic Acid Calcium Phosphorus Magnesium Ferritin Total Bilirubin AST ALT Alkaline Phosphatase C-Reactive Protein Total Protein Albumin Blood Type A Positive Antibody Screen NEGATIVE 01/31/21 12:04 WBC RBC Hgb Hct MCV MCH MCHC RDW Plt Count MPV Absolute Nucleated RBC Nucleated RBC % (auto) PT INR APTT D-Dimer VBG pH VBG pCO2 VBG pO2 VBG HCO3 VBG O2 Saturation VBG Base Excess Sodium Potassium Chloride Carbon Dioxide Anion Gap BUN Creatinine Estim Creat Clear Calc Estimated GFR POC Glucose 268 H Random Glucose Lactic Acid Calcium Phosphorus Magnesium Ferritin Total Bilirubin AST ALT Alkaline Phosphatase C-Reactive Protein Total Protein Albumin Blood Type Antibody Screen Microbiology Microbiology Results: Microbiology 01/30/21 11:01 Sputum - Suctioned Gram Stain - Final 01/30/21 11:01 Sputum - Suctioned Sputum Culture - Preliminary Strep agalactiae (Grp B) 01/22/21 10:29 Blood - Venous Blood Culture - Final No growth after 5 days. 01/22/21 10:20 Blood - Venous Blood Culture - Final No growth after 5 days. 01/19/21 08:06 Sputum - Suctioned Gram Stain - Final 01/19/21 08:06 Sputum - Suctioned Sputum Culture - Final Strep agalactiae (Grp B) 01/15/21 05:54 Blood - Central Line Blood Culture - Final No growth after 5 days. 01/15/21 05:54 Blood - Central Line Blood Culture - Final No growth after 5 days. 01/09/21 21:01 Sputum - Suctioned Gram Stain - Final 01/09/21 21:01 Sputum - Suctioned Sputum Culture - Final 01/07/21 05:25 Blood - Venous Blood Culture - Final No growth after 5 days. 01/07/21 05:18 Blood - Venous Blood Culture - Final No growth after 5 days. Quality Stroke Does the patient have a stroke diagnosis?: No VTE Prior VTE?: No VTE Risk Level:: Medical - moderate - high VTE Device Contraindication: Treatment Not Indicated VTE Drug Contraindication: N/A - Med Ordered Critical Care Time Critical Care Time (minutes): 60
[2021-01-31 18:13] LABS: Glucose, Whole Blood 278 mg/dL (60-115)
[2021-01-31] MEDS: Metoprolol Tartrate 25 MG TABLET G-TUBE (21:30)
[2021-02-01] VITALS (32 sets, daily range): BP systolic 111–171; BP diastolic 62–91; PULSE 81–98; RESP 12–30; TEMP 37.6–38.5; O2SAT 5–96
[2021-02-01] MEDS: propofoL 1,000 MG/100 ML VIAL 14.52 MG IVCONT ×3 (00:13→11:01)
[2021-02-01] MEDS: Insulin Lispro 100 UNIT/ML 3 ML VIAL SUBCUT ×4 (00:14→18:28)
[2021-02-01 01:42] LABS: Glucose, Whole Blood 239 mg/dL (60-115)
[2021-02-01] MEDS: fentaNYL citrate/NS 1,000 MCG/100 ML PLAST..BAG 20 MCG IVCONT ×5 (02:54→22:09)
[2021-02-01] MEDS: Heparin Sodium,Porcine 5,000 UNIT/ML VIAL 5000 UNIT SUBCUT ×3 (04:11→20:35)
[2021-02-01 05:30] LABS: VBG Base Excess -7.3 mmol/L; VBG HCO3 17 mmol/L (22-26); VBG pCO2 34 mmHg; VBG pH 7.32 (7.32-7.43); VBG pO2 51 mmHg
[2021-02-01 05:33] LABS: Venous Blood Gas Refer to POC result
[2021-02-01 05:46] LABS: Basophils Percent Auto 0.2 % (0-2); Eosinophils Absolute Auto 0.3 X10*3/uL (0.0-0.4); Eosinophils Percent Auto 4.6 % (0-4); Hemoglobin 7.8 g/dl (14.0-18.0); NRBC Pct Auto 0.4 /100WBC (0.0-0.2); PLT ABN DIST 1; SCAN SMEAR FLAG 1
[2021-02-01 05:48] LABS: Hematocrit 25.8 % (42-52); Imm Gran Abs Auto 0.05 X10*3/uL (0.00-0.03); Imm Gran Pct Auto 0.9 % (0.0-0.4); Lymphocytes Absolute Auto 1.2 X10*3/uL (1.2-4.9); Mean Corpuscular HGB Conc 30.2 g/dl (31.0-36.0); Mean Corpuscular Hemoglobin 27.4 pg (27.0-33.0); Mean Corpuscular Volume 90.5 fL (80-98); Mean Platelet Volume 13.4 fL (9.4-12.4); Monocytes Absolute Auto 0.3 X10*3/uL (0.1-1.2); Monocytes Percent Auto 5.8 % (2-11); Neutrophils Absolute Auto 3.5 X10*3/uL (2.0-8.3); Neutrophils Percent Auto 65.5 % (45-73); Red Blood Count 2.85 X10*6/uL (4.60-5.80); White Blood Count 5.4 X10*3/uL (4.8-10.8)
[2021-02-01 05:54] LABS: D Dimer 750 NG/ML
[2021-02-01 05:55] LABS: Platelet Count 93 X10*3/uL (160-400)
[2021-02-01 05:56] LABS: MANUAL DIFF FLAG NO
[2021-02-01 06:11] LABS: Alanine Aminotransferase 20 U/L (0-40); Albumin Level 2.4 g/dL (3.5-5.0); Alkaline Phosphatase 86 U/L (39-117); Anion Gap 14 (12-20); Aspartate Amino Transferase 18 U/L (5-37); Bilirubin Total 1.1 mg/dL (0.0-1.0); Blood Urea Nitrogen 77 mg/dL (9-16); C Reactive Protein 9.29 mg/dL (< or = 0.50); Calcium 7.9 mg/dL (8.4-10.2); Carbon Dioxide 18 mmol/L (22-29); Chloride 116 mmol/L (96-108); Creatinine Clr Calc Pharmacy 46.8; Estimated Glomerular Filt Rate 25; Glucose Random 242 mg/dL (60-115); Phosphorus 4.1 mg/dL (2.7-4.5); Potassium 3.7 mmol/L (3.3-5.1); Sodium 144 mmol/L (135-145); Total Protein 5.5 g/dL (6.5-8.0)
--- NOTE | 2021-02-01 06:23 | PC.NURSE ---
At approx 0000- pt sedate on fentanyl only- EtCO2 20s, RR 30s, SpO2 84%, gagging on ETT. PA notified. Orders to restart propofol, see emar. Pt still intermittently emerging from sedation, but settles back down. Opens eyes, blinks to confrontation, +C/G, does not track or follow commands. ?Head CT per MD today. ETT #7.5, 25 cm at lip. Vent settings- 16/500/8/40%, SpO2 91% at this time. Tmax 101.3, packed in ice with good effect. NSR on tele, hr 90s. BP WNL. Tf running per order. UOP approx 100 mL/hr. Skin intact. Family updated via phone.
[2021-02-01 06:34] LABS: Ferritin 286 ng/mL (20-250)
[2021-02-01 07:16] LABS: Glucose, Whole Blood 221 mg/dL (60-115)
[2021-02-01] MEDS: Chlorhexidine Gluc Oral Rinse 15 ML MOUTHWASH BUCCAL ×3 (07:45→20:35)
[2021-02-01] MEDS: Insulin Glargine,Hum.rec.anlog 100 UNIT/ML 10 ML VIAL 25 UNIT SUBCUT (07:45)
[2021-02-01] MEDS: methylPREDNISolone Sod Succ 40 MG/ML VIAL 20 MG IVPUSH (07:45)
[2021-02-01] MEDS: 0.9 % Sodium Chloride Flush 3 ML SYRINGE IVFLUSH ×2 (07:45→16:57)
[2021-02-01] MEDS: Metoprolol Tartrate 25 MG TABLET G-TUBE ×2 (07:46→20:35)
--- NOTE | 2021-02-01 10:33 | MHC.CLN ---
F/U PEG PLACEMENT SCHEDULED FOR TOMORROW PT RECEIVING NEPRO AT MAX GOAL RATE 15ML/HR WITH 30ML PROSOURCE TID VIA OGT AND 300ML FREE WATER FLUSHES Q 6HRS TO PROVIDE 828KCALS (1211KCALS TOTAL WITH SEDATION), 74G PROTEIN (1.0G/KG), 1462CC TOTAL WATER FROM FORMULA AND FLUSHES (20ML/KG BASED ON IBW) PROPOFOL RATE DECREASED SIGNIFICANTLY PROVIDING LESS KCALS AND NOW NOT MEETING PT'S ESTIMATED NEEDS RECOMMEND INCREASING NEPRO TO MAX GOAL RATE 30ML/HR AND CONTINUE PROSOURCE TID AND 300ML FREE WATER FLUSHES Q 6 HRS TO PROVIDE 1859KCALS TOTAL WITH SEDATION (25KCALS/KG BASED ON IBW), 103G PROTEIN (1.4G/KG), 1723ML TOTAL FREE WATER FROM FORMULA AND FLUSHES (23ML/KG) CONTINUE TO MONITOR TOLERANCE, RESIDUALS AND LYTES
[2021-02-01] MEDS: cefTRIAXone sodium 1 GM in 0.9 % Sodium Chloride 50 ML IV (11:23)
--- NOTE | 2021-02-01 11:35 | MHC.CM.PN ---
Pt is scheduled for a Peg and Trach placement on 02/02 - Pt will require legal guardianship per [facility] as he does not have a HCP available. Discussed process with pt's mother, Nancy and dtr Tiffanie who have been acting as proxies since pt was intubated. Both are in agreement to service a co-guardians. Forms/petition to be completed and remitted to [facility] [place] [facility] attorneys. [facility] can accept pt once he has a court date. CM to follow for changes in status
[2021-02-01 12:17] LABS: Glucose, Whole Blood 289 mg/dL (60-115)
[2021-02-01] MEDS: propofoL 1,000 MG/100 ML VIAL 21.78 MG IVCONT ×3 (16:58→22:43)
[2021-02-01 17:52] LABS: Glucose, Whole Blood 218 mg/dL (60-115)
--- NOTE | 2021-02-01 19:06 | PM.CCPN ---
Subjective Subjective Date of Service: 02/01/21 Interval History: Mr. Preciado was admitted to ICU on January 07 with acute respiratory failure 2? COVID ARDS, hyperglycemia, KIRILL, and metabolic acidosis. 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 The patient had the [employer]hay [employer] Abhay COVID vaccine on October 24. Reportedly lives at home with his . His mother is the HCP. HISTORY OF PRESENT ILLNESS: The patient recently returned from a trip to [place] and came to our ED on January 01 with 2 days of cough, chest congestion, and wheezing. Multiple family members had similar symptoms. Additionally, he reported bilateral lower abdominal pain and small amounts of bright red blood per rectum for the prior 2 weeks. In the ED, he tested positive for COVID-19. Sat was 97% on RA. Hemoglobin was noted to be 9.8 compared to a baseline of around 11-12. DDimer and CRP were only mildly elevated. CXR showed NAD. CT of the abdomen and pelvis without contrast showed a 4.5 cm segment of distal transverse colon with circumferential wall thickening and luminal narrowing that could represent either spasm or colonic mass. There was also a masslike density near the ileocecal valve. Also demonstrated were splenomegaly and small upper abdominal varices but no ascites. The lungs were clear by my reading; the radiologist read a few questionable small areas of ground-glass opacities. He was admitted and treated with steroids for asthma exacerbation. His wheezing resolved. DAPT for his stroke was held and his Hb was stable and he had no further bleeding. His hematochezia was thought very possibly due to hemorrhoids found on exam. Bec of his COVID status, further GI workup w colonoscopy was deferred, as was GI f/u and treatment for his Hep C. He was discharged home on January 04. On January 07 he represented to the ED in moderate respiratory distress. SpO2 was low 70s on room air, 88% on O2 FM, and 94% on 100% HFNC. Labs were notable for WBC 13, Hb 10.4, BUN/creat were 68/3.1 (from 53/3/0 on 01/04), Bicarb was 13, K was 5.2, gluc was 546, lactate was 3.2, alb was 2.2. Acetone was negative. DDimer was bumped to 1581 (from 506 on 01/03), CRP was up to 14. CXR showed patchy multifocal opacities in both lungs, c/w COVID. CT abdomen done for f/u of previous CT and bec of lactic acidosis showed the same two equivocal findings in the colon, one at the ileocecal valve region and one in the distal transverse colon ?which require further assessment in the setting of GI bleeding to exclude underlying malignancy.? Hepatic cirrhosis with portal venous hypertension as evidenced by splenomegaly and small upper abdominal varices was again demonstrated, w no significant ascites. The lung cuts showed severe bilat patchy opacities suggestive of infectious/inflammatory process. The patient was admitted to ICU and treated with dexamethasone and insulin drip. U/o and renal fxn improved slightly and his lactic and metabolic acidoses resolved. However, his oxygenation deteriorated, and he required tracheal intubation on 01/08. The next day we were able to get his FiO2 down as low as 60%. Echo showed moderate LVH, normal LV size and fxn, normal RV size, normal RVSP, and IVC measured 1.9cm w about 50% insp collapse. He was started him on a 5-day course of ivermectin, along w vit D and thimaine, and we upped his steroids to Solumedrol 80mg bid. On 01/10 we started him on losartan bec of HTN. HOSPITAL COURSE since then: Renal indices have waxed and waned. A routine CXR done 01/13 showed a new small right apical PTX and pneumomediastinum, which we initially just watched. Adding Precedex improved his sedation and allowed reduction of his inspiratory pressures. It caused his BP to rise, however, which was refractory to IV labetolol, so he was started on nicardipine. Follow-up chest x-rays initially showed resolution of the pneumothorax and pneumomediastinum. However, a couple of days later, his Sat?s decreased and a CXR showed reappearance and enlargement of the PTX. A Gonzalo pneumothorax drainage catheter was placed. The patient had an ETT change on January 16 bec of a cuff leak. His pneumothorax drainage catheter was pulled on 01/20. He was ultimately extubated on 01/24, and at that time was responsive to commands. He had to be reintubated the next day bec of a massive left lung aspiration. He required 100% FiO2. He was given 48 hrs of Levaquin. His FiO2 has gradually come down to as low as 30%. Tracheostomy and PEG are planned for tomorrow. Yesterday morning we turned his propofol off for a propofol holiday. He was off for about 12 hours. His eyes were open, but he was 100% noninteractive, no response to confrontation, no spontaneous movement, and hardly even a grimace to pain. He had to go back on the propofol overnite bec of ventilator dysynchrony. Tracheostomy and PEG planned for tomorrow. This afternoon, the patient went for a head CT (bec of failure to become interactive), which shows subacute right periventricular frontal and parietal lobe and subcortical right parietal lobe infarcts. There is no edema and no MLS. These are new since his last head CT in our records which was 08/20/2020. See vital signs below. He?s on clonidine 0.3 TTS and metoprolol 25 mg bid. On AC 16/500/40%/+8, RR is 20, Ve 10L, PIP 33, ETCO2 31, Sat 95%. CVBG this morning showed 7.32/34/-7. He has a new temperature today, Tmax 101.1?. His respiratory pattern is smooth with excellent excursion and no accessory muscle use. No JVD at 30?. Chest has low pitched BS w normal exp phase. Abdomen benign. Trace edema. LABORATORY DATA: As below. Notably, WBC is steady. Plat count rising slowly. Sodium is 144. BUN/creatinine steady at 77/2.7. Phos steady at 4.1. tbili up slightly, DDimer is steady, ferritin is steady, CRP up to 9.2, albumin is 2.4. MICROBIOLOGY: Sputum Gram stain 01/30 shows 3+ polys, 2+ GPC, 1+ GNR. Cx is growing Group B strep. Last blood cultures 01/22 were negative. 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 The patient had the Abhay & Abhay COVID vaccine on October 24. 1. Bilat pulmon infiltrates 2? COVID pneumonia. Symptom onset date approx. December 30. Unclear if the J&J vaccine had any salutary benefit. Has finished a course of ivermectin, Solu-Medrol, vit D, and thiamine. Biomarkers are down, and he hasn?t progressed to gross renal failure or sustained requirement for 100% FiO2. 2. Resolving ARDS 2? above. 3. Pneumothorax/pneumomediastinum. Resolved. 4. Hypoxemic respiratory failure. Plan tracheostomy and PEG tomorrow. 5. HTN. We increased the clonidine yesterday to 0.3mg TTS. I will add metoprolol. 6. Acute on chronic kidney injury. Likely 2? COVID. Indices wax and wane. Urine Na is not suggestive of hypovolemia. 7. GI. No gross GI bleeding. 8. ID. Discussed the sputum cx with Dr. Real. We?ll give him a short course of ceftriaxone. Has reported allergy to almost all abx. We?ll give it over two hours, monitor closely. And we?ll send new blood and urine cx. 9. Hyperglycemia. Upped his Lantus dose to 30u bid. 10. Metabolic. Hypernatremia. On free water. Brought his potassium down w LoKelma, and now on Nepro. Nonanion gap metabolic acidosis, presumably from renal dz, is stable. Stopped his phosphate binder. 11. Neuro. New large subacute stroke. Presumed 2? COVID. Given lack of any edema, the stroke is likely > 3-5 days old. But presumably after 01/24, the day he was extubated. The large stroke is likely to be devastating to his future quality of life. D/W Dr. Pitts and with Dr. Gonzalez; he will see the patient tomorrow. We?ll get a carotid Doppler tonite. Not a candidate for CTA bec of his renal fxn. TERRA Deras will call the patient?s kimberly and let her know. 12. Nutrition. At least mild PCM. On Nepro with added protein supplement, plus calories from the propofol. 13. Triple lumen CVC. OK for now. Eventually change to PICC line. 14. DVT proph. On heparin 5000 u tid. Critical care time: 70 min. Critical Care Time (minutes): 70 Physical Exam Vital Signs: Vital Signs: Last Vital Signs Temp 99.9 F 02/01/21 17:00 Pulse 83 02/01/21 17:57 Resp 21 H 02/01/21 17:57 BP 125/63 02/01/21 17:57 Pulse Ox 95 02/01/21 17:57 Oxygen Flow Rate 100 01/07/21 05:11 Body Mass Index 34.2 Objective Data Labs CBC & Chem 7: 02/01/21 05:15 02/01/21 05:15 Labs: Laboratory Results - last 24 hr 02/01/21 02/01/21 02/01/21 00:09 05:15 05:15 WBC 5.4 RBC 2.85 L Hgb 7.8 L Hct 25.8 L MCV 90.5 MCH 27.4 MCHC 30.2 L RDW 16.0 Plt Count 93 L MPV 13.4 H Immature Gran % (Auto) 0.9 H Neut % (Auto) 65.5 Lymph % (Auto) 23.0 [place] % (Auto) 5.8 Eos % (Auto) 4.6 H Baso % (Auto) 0.2 Lymph # (Auto) 1.2 [place] # (Auto) 0.3 Eos # (Auto) 0.3 Baso # (Auto) 0.0 Abs Immat Gran (auto) 0.05 H Absolute Neuts (auto) 3.5 Absolute Nucleated RBC 0.020 H Nucleated RBC % (auto) 0.4 H D-Dimer 750 VBG pH VBG pCO2 VBG pO2 VBG HCO3 VBG O2 Saturation VBG Base Excess Sodium Potassium Chloride Carbon Dioxide Anion Gap BUN Creatinine Estim Creat Clear Calc Estimated GFR POC Glucose 239 H Random Glucose Calcium Phosphorus Ferritin Total Bilirubin AST ALT Alkaline Phosphatase C-Reactive Protein Total Protein Albumin 02/01/21 02/01/21 02/01/21 05:15 05:22 06:07 WBC RBC Hgb Hct MCV MCH MCHC RDW Plt Count MPV Immature Gran % (Auto) Neut % (Auto) Lymph % (Auto) [place] % (Auto) Eos % (Auto) Baso % (Auto) Lymph # (Auto) [place] # (Auto) Eos # (Auto) Baso # (Auto) Abs Immat Gran (auto) Absolute Neuts (auto) Absolute Nucleated RBC Nucleated RBC % (auto) D-Dimer VBG pH 7.32 VBG pCO2 34 VBG pO2 51 VBG HCO3 17 L VBG O2 Saturation 78.0 VBG Base Excess -7.3 Sodium 144 Potassium 3.7 Chloride 116 H Carbon Dioxide 18 L Anion Gap 14 BUN 77 H Creatinine 2.75 H Estim Creat Clear Calc 46.8 Estimated GFR 25 POC Glucose 221 H Random Glucose 242 H Calcium 7.9 L Phosphorus 4.1 Ferritin 286 H Total Bilirubin 1.1 H AST 18 ALT 20 Alkaline Phosphatase 86 C-Reactive Protein 9.29 H Total Protein 5.5 L Albumin 2.4 L 02/01/21 02/01/21 12:13 17:47 WBC RBC Hgb Hct MCV MCH MCHC RDW Plt Count MPV Immature Gran % (Auto) Neut % (Auto) Lymph % (Auto) [place] % (Auto) Eos % (Auto) Baso % (Auto) Lymph # (Auto) [place] # (Auto) Eos # (Auto) Baso # (Auto) Abs Immat Gran (auto) Absolute Neuts (auto) Absolute Nucleated RBC Nucleated RBC % (auto) D-Dimer VBG pH VBG pCO2 VBG pO2 VBG HCO3 VBG O2 Saturation VBG Base Excess Sodium Potassium Chloride Carbon Dioxide Anion Gap BUN Creatinine Estim Creat Clear Calc Estimated GFR POC Glucose 289 H 218 H Random Glucose Calcium Phosphorus Ferritin Total Bilirubin AST ALT Alkaline Phosphatase C-Reactive Protein Total Protein Albumin Microbiology Microbiology Results: Microbiology 01/30/21 11:01 Sputum - Suctioned Gram Stain - Final 01/30/21 11:01 Sputum - Suctioned Sputum Culture - Final Strep agalactiae (Grp B) 01/22/21 10:29 Blood - Venous Blood Culture - Final No growth after 5 days. 01/22/21 10:20 Blood - Venous Blood Culture - Final No growth after 5 days. 01/19/21 08:06 Sputum - Suctioned Gram Stain - Final 01/19/21 08:06 Sputum - Suctioned Sputum Culture - Final Strep agalactiae (Grp B) 01/15/21 05:54 Blood - Central Line Blood Culture - Final No growth after 5 days. 01/15/21 05:54 Blood - Central Line Blood Culture - Final No growth after 5 days. 01/09/21 21:01 Sputum - Suctioned Gram Stain - Final 01/09/21 21:01 Sputum - Suctioned Sputum Culture - Final 01/07/21 05:25 Blood - Venous Blood Culture - Final No growth after 5 days. 01/07/21 05:18 Blood - Venous Blood Culture - Final No growth after 5 days. Quality Stroke Does the patient have a stroke diagnosis?: No VTE Prior VTE?: No VTE Risk Level:: Medical - moderate - high VTE Device Contraindication: Treatment Not Indicated VTE Drug Contraindication: N/A - Med Ordered Critical Care Time Critical Care Time (minutes): 60
[2021-02-01] MEDS: Insulin Glargine,Hum.rec.anlog 100 UNIT/ML 10 ML VIAL 30 UNIT SUBCUT (20:35)
[2021-02-01 21:16] LABS: Glucose Urine UA 100 MG/DL (NEG); Leukocyte Esterase Urine NEG (NEG); Nitrite Urine NEG (NEG); Urine Blood NEG (NEG); Urine Ketones NEG (NEG); Urine Protein 3+ MG/DL (NEG-TRACE)
[2021-02-01 21:17] LABS: Appearance Urine CLEAR; Color Urine YELLOW
[2021-02-01 21:25] LABS: Amorphous Sediment Urine 2+ /LPF; Bacteria Urine TRACE /LPF; Granular Casts Urine 0-2 /LPF; Mucus Urine TRACE /LPF; Renal Epithelial Cells Urine TRACE /LPF; Squamous Epithelial Cell Urine TRACE /LPF; WBC Urine 0-2 /HPF (0-4)
[2021-02-02] VITALS (18 sets, daily range): BP systolic 109–179; BP diastolic 61–88; PULSE 80–97; RESP 18–29; TEMP 37–38.1; O2SAT 64–99
--- NOTE | 2021-02-02 00:33 | PC.NURSE ---
Code status changed to DNR by PA after discussion with pt family- opting for no trach/PEG placement and possible extubation. Family requested to come in to see pt at approx 1000. 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
[2021-02-02 01:31] LABS: Glucose, Whole Blood 157 mg/dL (60-115)
[2021-02-02] MEDS: fentaNYL citrate/NS 1,000 MCG/100 ML PLAST..BAG 20 MCG IVCONT ×2 (02:51→08:17)
[2021-02-02] MEDS: Heparin Sodium,Porcine 5,000 UNIT/ML VIAL 5000 UNIT SUBCUT (04:02)
[2021-02-02] MEDS: propofoL 1,000 MG/100 ML VIAL 14.52 MG IVCONT ×2 (04:02→11:00)
--- NOTE | 2021-02-02 04:33 | P.ACPN_ITS ---
Advanced Care Planning Note Advanced Care Planning Note Discussed with: family member(s) Time spent (in minutes): 60 Narrative: I had a significantly long discussion with the patient's mother, , children over the phone during which review the patient's clinical hospital stay in different scenarios during which his had some improvement along with several complications. We also discussed the current quality of life the patient as well as the patient's prognosis, expected quality of life in the future given the current presence of a large stroke on the right side of his brain which appears to be subacute and that probably happened any time between August of this year and the beginning of this month. Certainly the changes due to no appear to be acute, there is no brain edema or shifting noted. Given that likely the patient will have left-sided hemiparesis and speech difficulties as well as a worsened quality of life most likely depending on full care, significant thought was given to the risk versus benefit of exposing the patient to a tracheostomy and PEG, but we also discussed the fact that he has moderate stenosis on the left carotid artery noted on ultrasound. Will also reviewed the patient's labs and they are aware of the multiple allison rbidities and worsened renal failure. At this time the family stated that they are no longer willing to put the patient through all these and would rather avoid any farther invasive care as well as future procedures therefore they kindly acknowledged and agreed to the followin. Code status changed to DNR 2. Cancel tracheostomy and PEG 3. Visit the patient and say their goodbyes tomorrow at 10:00 a.m. 4. Review images as they would like to see what the stroke looks like 5. Discussed with morning physician for [employer] care All of this was discussed in detail with the patient's mother and healthcare proxy Carol and the patient's daughter Paula. Total time spent with the family members about goals of care and future management, prognosis among all the others noted above was 60 minutes Problems Discussed (1) Pulmonary aspiration: (2) Thrombocytopenia associated with COVID-19: (3) Acute respiratory distress syndrome (ARDS) due to COVID-19 virus: (4) Acute on chronic kidney failure: (5) Acute respiratory failure with hypoxia: (6) Hepatitis C, chronic: (7) Cirrhosis: (8) Hypertension: (9) Diabetes:
[2021-02-02 05:29] LABS: VBG Base Excess -7.7 mmol/L; VBG HCO3 17 mmol/L (22-26); VBG pCO2 32 mmHg; VBG pH 7.33 (7.32-7.43); VBG pO2 34 mmHg
[2021-02-02 05:39] LABS: MANUAL DIFF FLAG NO
[2021-02-02 05:40] LABS: Basophils Percent Auto 0.2 % (0-2); Eosinophils Absolute Auto 0.2 X10*3/uL (0.0-0.4); Eosinophils Percent Auto 3.4 % (0-4); Hemoglobin 8.4 g/dl (14.0-18.0); Imm Gran Abs Auto 0.05 X10*3/uL (0.00-0.03); Imm Gran Pct Auto 0.8 % (0.0-0.4); Lymphocytes Absolute Auto 1.3 X10*3/uL (1.2-4.9); Mean Corpuscular Volume 93.3 fL (80-98); Mean Platelet Volume 12.8 fL (9.4-12.4); Monocytes Absolute Auto 0.4 X10*3/uL (0.1-1.2); Monocytes Percent Auto 6.9 % (2-11); Neutrophils Absolute Auto 4.1 X10*3/uL (2.0-8.3); Neutrophils Percent Auto 67.7 % (45-73); Platelet Count 111 X10*3/uL (160-400); Red Cell Distribution Width 16.7 % (11.0-16.0); White Blood Count 6.1 X10*3/uL (4.8-10.8)
[2021-02-02 05:57] LABS: Venous Blood Gas Refer to POC result
[2021-02-02 06:11] LABS: Alanine Aminotransferase 30 U/L (0-40); Albumin Level 2.5 g/dL (3.5-5.0); Alkaline Phosphatase 107 U/L (39-117); Anion Gap 13 (12-20); Aspartate Amino Transferase 44 U/L (5-37); Bilirubin Total 1.3 mg/dL (0.0-1.0); Blood Urea Nitrogen 74 mg/dL (9-16); Calcium 8.1 mg/dL (8.4-10.2); Carbon Dioxide 18 mmol/L (22-29); Chloride 118 mmol/L (96-108); Creatinine Clr Calc Pharmacy 48.2; Estimated Glomerular Filt Rate 26; Glucose Random 176 mg/dL (60-115); Potassium 3.8 mmol/L (3.3-5.1); Sodium 145 mmol/L (135-145)
[2021-02-02] MEDS: Chlorhexidine Gluc Oral Rinse 15 ML MOUTHWASH BUCCAL (08:50)
[2021-02-02] MEDS: Insulin Glargine,Hum.rec.anlog 100 UNIT/ML 10 ML VIAL 30 UNIT SUBCUT (08:50)
[2021-02-02] MEDS: 0.9 % Sodium Chloride Flush 3 ML SYRINGE IVFLUSH (08:50)
[2021-02-02] MEDS: Metoprolol Tartrate 25 MG TABLET G-TUBE (08:51)
[2021-02-02] MEDS: methylPREDNISolone Sod Succ 40 MG/ML VIAL 20 MG IVPUSH (08:51)
--- NOTE | 2021-02-02 11:01 | PM.CCPN ---
Subjective Subjective Date of Service: 02/02/21 Interval History: Mr. Preciado was admitted to ICU on January 07 with acute respiratory failure 2? COVID ARDS, hyperglycemia, KIRILL, and metabolic acidosis. 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 The patient had the [employer]hay [employer] Abhay COVID vaccine on October 24. Reportedly lives at home with his . His mother is the HCP. HISTORY OF PRESENT ILLNESS: The patient recently returned from a trip to [place] and came to our ED on January 01 with 2 days of cough, chest congestion, and wheezing. Multiple family members had similar symptoms. Additionally, he reported bilateral lower abdominal pain and small amounts of bright red blood per rectum for the prior 2 weeks. In the ED, he tested positive for COVID-19. Sat was 97% on RA. Hemoglobin was noted to be 9.8 compared to a baseline of around 11-12. DDimer and CRP were only mildly elevated. CXR showed NAD. CT of the abdomen and pelvis without contrast showed a 4.5 cm segment of distal transverse colon with circumferential wall thickening and luminal narrowing that could represent either spasm or colonic mass. There was also a masslike density near the ileocecal valve. Also demonstrated were splenomegaly and small upper abdominal varices but no ascites. The lungs were clear by my reading; the radiologist read a few questionable small areas of ground-glass opacities. He was admitted and treated with steroids for asthma exacerbation. His wheezing resolved. DAPT for his stroke was held and his Hb was stable and he had no further bleeding. His hematochezia was thought very possibly due to hemorrhoids found on exam. Bec of his COVID status, further GI workup w colonoscopy was deferred, as was GI f/u and treatment for his Hep C. He was discharged home on January 04. On January 07 he represented to the ED in moderate respiratory distress. SpO2 was low 70s on room air, 88% on O2 FM, and 94% on 100% HFNC. Labs were notable for WBC 13, Hb 10.4, BUN/creat were 68/3.1 (from 53/3/0 on 01/04), Bicarb was 13, K was 5.2, gluc was 546, lactate was 3.2, alb was 2.2. Acetone was negative. DDimer was bumped to 1581 (from 506 on 01/03), CRP was up to 14. CXR showed patchy multifocal opacities in both lungs, c/w COVID. CT abdomen done for f/u of previous CT and bec of lactic acidosis showed the same two equivocal findings in the colon, one at the ileocecal valve region and one in the distal transverse colon ?which require further assessment in the setting of GI bleeding to exclude underlying malignancy.? Hepatic cirrhosis with portal venous hypertension as evidenced by splenomegaly and small upper abdominal varices was again demonstrated, w no significant ascites. The lung cuts showed severe bilat patchy opacities suggestive of infectious/inflammatory process. The patient was admitted to ICU and treated with dexamethasone and insulin drip. U/o and renal fxn improved slightly and his lactic and metabolic acidoses resolved. However, his oxygenation deteriorated, and he required tracheal intubation on 01/08. The next day we were able to get his FiO2 down as low as 60%. Echo showed moderate LVH, normal LV size and fxn, normal RV size, normal RVSP, and IVC measured 1.9cm w about 50% insp collapse. He was started him on a 5-day course of ivermectin, along w vit D and thimaine, and we upped his steroids to Solumedrol 80mg bid. On 01/10 we started him on losartan bec of HTN. HOSPITAL COURSE since then: Renal indices have waxed and waned. A routine CXR done 01/13 showed a new small right apical PTX and pneumomediastinum, which we initially just watched. Adding Precedex improved his sedation and allowed reduction of his inspiratory pressures. It caused his BP to rise, however, which was refractory to IV labetolol, so he was started on nicardipine. Follow-up chest x-rays initially showed resolution of the pneumothorax and pneumomediastinum. However, a couple of days later, his Sat?s decreased and a CXR showed reappearance and enlargement of the PTX. A Gonzalo pneumothorax drainage catheter was placed. The patient had an ETT change on January 16 bec of a cuff leak. His pneumothorax drainage catheter was pulled on 01/20. He was ultimately extubated on 01/24, and at that time was responsive to commands. He had to be reintubated the next day bec of a massive left lung aspiration. He required 100% FiO2. He was given 48 hrs of Levaquin. His FiO2 gradually come down to as low as 30%. Tracheostomy and PEG were planned for too. 02/02 we turned his propofol off for a propofol holiday. He was off for about 12 hours. His eyes were open, but he never became interactive, he had no response to confrontation, no spontaneous movement, and hardly even a grimace to pain. He had to go back on the propofol bec of ventilator dysynchrony, but we did a head CT yesterday which showed a large area of subacute right periventricular frontal and parietal lobe and subcortical right parietal lobe infarcts. There was no edema and no MLS. Those are new findings since his last head CT in our records which was 08/20/2020. We spoke with the family at length last night about all that and they decided not to proceed with the tracheostomy and PEG. They were considering [employer] status. The family came in this morning and I showed them all his CT scan, comparing it to his CT in August. We talked at length about his condition and prognosis. See vital signs below. He?s on clonidine 0.3 TTS and metoprolol 25 mg bid. On AC 16/500/40%/+8, RR is 23, Ve 11L, PIP 32, ETCO2 29, Sat 94%. CVBG this morning showed 7.33/32/-7. Tmax 100.6?. Started him on ceftriaxone yesterday for Strep in his sputum. His respiratory pattern is smooth with excellent excursion and no accessory muscle use. No JVD at 30?. Trace edema. LABORATORY DATA: As below. Notably. Sodium is 145. BUN/creatinine steady at 74/2.6. tbili up slightly to 1.3, albumin is 2.5. MICROBIOLOGY: Sputum Gram stain 01/30 shows 3+ polys, 2+ GPC, 1+ GNR. Cx is growing Group B strep. Last blood cultures 01/22 were negative. 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 The patient had the Abhay & Abhay COVID vaccine on October 24. 1. Bilat pulmon infiltrates 2? COVID pneumonia. Symptom onset date approx. December 30. Unclear if the J&J vaccine had any salutary benefit. Has finished a course of ivermectin, Solu-Medrol, vit D, and thiamine. Biomarkers are down, and he hasn?t progressed to gross renal failure or sustained requirement for 100% FiO2. 2. Resolving ARDS 2? above. 3. Pneumothorax/pneumomediastinum. Resolved. 4. Hypoxemic respiratory failure. Pt?s family put a hold on tracheostomy and PEG. 5. HTN. Well controlled on clonidine 0.3mg TTS and metoprolol. 6. Acute on chronic kidney injury. Likely 2? COVID. Indices wax and wane. Urine Na is not suggestive of hypovolemia. 7. GI. No gross GI bleeding. 8. ID. Discussed the sputum cx with Dr. Real. We?ll give him a short course of ceftriaxone. Has reported allergy to almost all abx. We gave the first dose of ceftriaxone yesterday with no problem. 9. Hyperglycemia. Upped his Lantus dose to 30u bid. 10. Metabolic. Hypernatremia. On free water. Brought his potassium down w LoKelma, and now on Nepro. Nonanion gap metabolic acidosis, presumably from renal dz, is stable. Stopped his phosphate binder. 11. Neuro. New large subacute stroke. Presumed 2? COVID, palomo given his carotid US results. Given lack of any edema, the stroke is likely > 3-5 days old. But presumably after 01/24, the day he was extubated. The large stroke is likely to be devastating to his future quality of life. D/W Dr. Pitts and with Dr. Gonzalez. We spoke with the family last night. They are considering comfort measures. 12. Nutrition. At least mild PCM. On Nepro with added protein supplement, plus calories from the propofol. 13. Triple lumen CVC. OK for now. Eventually change to PICC line. 14. DVT proph. On heparin 5000 u tid. ADDENDUM at 1426: The family visited with the patient and decided on comfort measures. A little bit after noon, the patient was extubated to room air. He was breathing comfortably on the propofol and fentanyl. His hemoglobin oxygen saturation progressively declined. When it dropped to about 50%, he junaid'd down and then went asystolic at 14:14. The family was at the bedside. Critical care time: 80+ min. Critical Care Time (minutes): 80 Physical Exam Vital Signs: Vital Signs: Last Vital Signs Temp 100.6 F H 02/02/21 10:00 Pulse 89 02/02/21 10:00 Resp 22 H 02/02/21 10:00 BP 128/69 02/02/21 10:00 Pulse Ox 94 02/02/21 10:00 Oxygen Flow Rate 100 01/07/21 05:11 Body Mass Index 34.2 Objective Data Labs CBC & Chem 7: 02/02/21 05:25 02/02/21 05:25 Labs: Laboratory Results - last 24 hr 02/01/21 02/01/21 02/01/21 12:13 17:47 21:04 WBC RBC Hgb Hct MCV MCH MCHC RDW Plt Count MPV Immature Gran % (Auto) Neut % (Auto) Lymph % (Auto) [place] % (Auto) Eos % (Auto) Baso % (Auto) Lymph # (Auto) [place] # (Auto) Eos # (Auto) Baso # (Auto) Abs Immat Gran (auto) Absolute Neuts (auto) Absolute Nucleated RBC Nucleated RBC % (auto) VBG pH VBG pCO2 VBG pO2 VBG HCO3 VBG O2 Saturation VBG Base Excess Sodium Potassium Chloride Carbon Dioxide Anion Gap BUN Creatinine Estim Creat Clear Calc Estimated GFR POC Glucose 289 H 218 H Random Glucose Calcium Total Bilirubin AST ALT Alkaline Phosphatase Total Protein Albumin Urine Color YELLOW Urine Appearance CLEAR Urine pH 6.0 Ur Specific [place] 1.020 Urine Protein 3+ H Urine Glucose (UA) 100 H Urine Ketones NEG Urine Blood NEG Urine Nitrite NEG Ur Leukocyte Esterase NEG Urine RBC 1-4 Urine WBC 0-2 Ur Squamous Epith Cells TRACE Ur Renal Epithelial Cell TRACE Amorphous Sediment 2+ Urine Bacteria TRACE Granular Casts 0-2 Urine Mucus TRACE 02/01/21 02/02/21 02/02/21 23:39 05:21 05:25 WBC 6.1 RBC 3.00 L Hgb 8.4 L Hct 28.0 L MCV 93.3 MCH 28.0 MCHC 30.0 L RDW 16.7 H Plt Count 111 L MPV 12.8 H Immature Gran % (Auto) 0.8 H Neut % (Auto) 67.7 Lymph % (Auto) 21.0 [place] % (Auto) 6.9 Eos % (Auto) 3.4 Baso % (Auto) 0.2 Lymph # (Auto) 1.3 [place] # (Auto) 0.4 Eos # (Auto) 0.2 Baso # (Auto) 0.0 Abs Immat Gran (auto) 0.05 H Absolute Neuts (auto) 4.1 Absolute Nucleated RBC 0.000 Nucleated RBC % (auto) 0.0 VBG pH 7.33 VBG pCO2 32 VBG pO2 34 VBG HCO3 17 L VBG O2 Saturation 52.0 VBG Base Excess -7.7 Sodium Potassium Chloride Carbon Dioxide Anion Gap BUN Creatinine Estim Creat Clear Calc Estimated GFR POC Glucose 157 H Random Glucose Calcium Total Bilirubin AST ALT Alkaline Phosphatase Total Protein Albumin Urine Color Urine Appearance Urine pH Ur Specific [place] Urine Protein Urine Glucose (UA) Urine Ketones Urine Blood Urine Nitrite Ur Leukocyte Esterase Urine RBC Urine WBC Ur Squamous Epith Cells Ur Renal Epithelial Cell Amorphous Sediment Urine Bacteria Granular Casts Urine Mucus 02/02/21 05:25 WBC RBC Hgb Hct MCV MCH MCHC RDW Plt Count MPV Immature Gran % (Auto) Neut % (Auto) Lymph % (Auto) [place] % (Auto) Eos % (Auto) Baso % (Auto) Lymph # (Auto) [place] # (Auto) Eos # (Auto) Baso # (Auto) Abs Immat Gran (auto) Absolute Neuts (auto) Absolute Nucleated RBC Nucleated RBC % (auto) VBG pH VBG pCO2 VBG pO2 VBG HCO3 VBG O2 Saturation VBG Base Excess Sodium 145 Potassium 3.8 Chloride 118 H Carbon Dioxide 18 L Anion Gap 13 BUN 74 H Creatinine 2.67 H Estim Creat Clear Calc 48.2 Estimated GFR 26 POC Glucose Random Glucose 176 H Calcium 8.1 L Total Bilirubin 1.3 H AST 44 H D ALT 30 Alkaline Phosphatase 107 D Total Protein 6.0 L Albumin 2.5 L Urine Color Urine Appearance Urine pH Ur Specific [place] Urine Protein Urine Glucose (UA) Urine Ketones Urine Blood Urine Nitrite Ur Leukocyte Esterase Urine RBC Urine WBC Ur Squamous Epith Cells Ur Renal Epithelial Cell Amorphous Sediment Urine Bacteria Granular Casts Urine Mucus Microbiology Microbiology Results: Microbiology 01/30/21 11:01 Sputum - Suctioned Gram Stain - Final 01/30/21 11:01 Sputum - Suctioned Sputum Culture - Final Strep agalactiae (Grp B) 01/22/21 10:29 Blood - Venous Blood Culture - Final No growth after 5 days. 01/22/21 10:20 Blood - Venous Blood Culture - Final No growth after 5 days. 01/19/21 08:06 Sputum - Suctioned Gram Stain - Final 01/19/21 08:06 Sputum - Suctioned Sputum Culture - Final Strep agalactiae (Grp B) 01/15/21 05:54 Blood - Central Line Blood Culture - Final No growth after 5 days. 01/15/21 05:54 Blood - Central Line Blood Culture - Final No growth after 5 days. 01/09/21 21:01 Sputum - Suctioned Gram Stain - Final 01/09/21 21:01 Sputum - Suctioned Sputum Culture - Final 01/07/21 05:25 Blood - Venous Blood Culture - Final No growth after 5 days. 01/07/21 05:18 Blood - Venous Blood Culture - Final No growth after 5 days. Quality Stroke Does the patient have a stroke diagnosis?: No VTE Prior VTE?: No VTE Risk Level:: Medical - moderate - high VTE Device Contraindication: Treatment Not Indicated VTE Drug Contraindication: N/A - Med Ordered Critical Care Time Critical Care Time (minutes): 90
--- NOTE | 2021-02-02 11:25 | MHC.CM.PN ---
Patient remains intubated/vented. Per Dr Perez, patient will be a terminal wean due to a large CVA. Continue to monitor for d/c needs.
[2021-02-02] MEDS: fentaNYL citrate/NS 1,000 MCG/100 ML PLAST..BAG 30 MCG IVCONT (12:48)
--- NOTE | 2021-02-02 13:37 | PC.NURSE ---
Addendum entered by Elinor Gonzalez RN 02/02/21 14:41: Family at bedside at time of . Belongings sent home with them except for prosthetics which will be sent to home. Addendum entered by Elinor Gonzalez RN 02/02/21 14:21: Time of pronounced by Dr. Perez. 14:14 Sedation drips discontinued. [facility] notified. Original Note: Patient's family arrived today, 10am. Discussion with MD Perez, patient made [employer]. Family at bedside. Extubated to room air at 12:20, Fentanyl infusion increased to 300mcg/kg/min per MD OGT removed. Wrist restraints released. [facility] contacted, case denied per agent Olga. Ref# [id number] Will contact again with Time of .
--- NOTE | 2021-02-02 22:53 | P.DS_ITS ---
DS: Providers Provider Date of Service: 02/02/21 Date of admission: 01/07/21 11:33 Primary care physician: Bala Stroud MD DS: Diagnosis Discharge Diagnosis (1) Pulmonary aspiration: Status: Acute (2) Thrombocytopenia associated with COVID-19: Status: Acute (3) Acute respiratory distress syndrome (ARDS) due to COVID-19 virus: Status: Acute (4) Acute on chronic kidney failure: Status: Acute (5) Acute respiratory failure with hypoxia: Status: Acute (6) Hepatitis C, chronic: Status: Acute (7) Cirrhosis: Status: Acute (8) Hypertension: Status: Acute (9) Diabetes: Status: Acute DS: Medications Discharge Medications Home Medications: Home Medications Medication Instructions Recorded Confirmed oxycodone 40 mg PO Q4H PRN 06/08/20 01/09/21 aspirin 1 tab PO DAILY 01/01/21 01/09/21 clopidogrel 1 tab PO DAILY 01/01/21 01/09/21 hydralazine 25 mg PO TID 01/01/21 01/09/21 hydromorphone 1 tab PO BEDTIME PRN 01/01/21 01/09/21 metoprolol succinate 100 mg PO DAILY 01/01/21 01/09/21 Humalog KwikPen Insulin 60 units SUBCUT TID 01/02/21 01/09/21 insulin glargine U-300 conc 160 unit SUBCUT QAM 01/07/21 01/09/21 [Toujeo SoloStar U-300 Insulin] Previous Rx's Medication Instructions Recorded ondansetron 4 mg PO Q6-8H PRN #14 tab 11/28/20 albuterol sulfate [Ventolin HFA] 2 puff INHALATION Q4H PRN #8.5 g 01/04/21 prednisone 40 mg PO DAILY #6 tab 01/04/21 DS: Summary Time Spent with Patient Time attestation: ADMISSION/DISCHARGE DIAGNOSIS: 1. Bilat pulmon infiltrates 2? COVID pneumonia. 2. Resolving ARDS 2? above. 3. Pneumothorax/pneumomediastinum. Resolved. 4. Hypoxemic respiratory failure. 5. HTN. 6. Acute on chronic kidney injury. Likely 2? COVID. 7. ID. Discussed the sputum cx with Dr. Real. 9. Hyperglycemia. 10. Metabolic. Hypernatremia. 11. New large subacute stroke. Presumed 2? COVID, palomo given his carotid US results. SECONDARY DIAGNOSIS/ COMORBIDITIES 1.Aspiration pneumonia 2.Hypernatremia 3.Colitis 4.Hepatitis-C (chronic) 5.Cirrhosis 6.Colonic mass 6.Asthma 7.Hypertension 8.Episodic opioid abuse 9.Diabetes 10.Bilateral [id number] amputations Hospital Course: The family visited with the patient today after my discussion with them last night given that he has had a significant right sided stroke and his prognosis now was grimed, after talking about it all and the expected future quality of life they decided on comfort measures. A little bit after noon, the patient was extubated to room air. He was breathing comfortably on the propofol and fentanyl. His hemoglobin oxygen saturation progressively declined. When it dropped to about 50%, he junaid'd down and then went asystolic at 14:14. The family was at the bedside. HISTORY OF PRESENT ILLNESS: Mr. Preciado was admitted to ICU on January 07 with acute respiratory failure 2? COVID ARDS, hyperglycemia, KIRILL, and metabolic acid osis. 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 The patient had the [employer] COVID vaccine on October 24. Reportedly lives at home with his . His mother is the HCP. The patient recently returned from a trip to [place] and came to our ED on January 01 with 2 days of cough, chest congestion, and wheezing. Multiple family members had similar symptoms. Additionally, he reported bilateral lower abdominal pain and small amounts of bright red blood per rectum for the prior 2 weeks. In the ED, he tested positive for COVID-19. Sat was 97% on RA. Hemoglobin was noted to be 9.8 compared to a baseline of around 11-12. DDimer and CRP were only mildly elevated. CXR showed NAD. CT of the abdomen and pelvis without contrast showed a 4.5 cm segment of distal transverse colon with circumferential wall thickening and luminal narrowing that could represent either spasm or colonic mass. There was also a masslike density near the ileocecal valve. Also demonstrated were sple nomegaly and small upper abdominal varices but no ascites. The lungs were clear by my reading; the radiologist read a few questionable small areas of ground- glass opacities. He was admitted and treated with steroids for asthma exacerbation. His wheezing resolved. DAPT for his stroke was held and his Hb was stable and he had no further bleeding. His hematochezia was thought very possibly due to hemorrhoids found on exam. Bec of his COVID status, further GI workup w colonoscopy was deferred, as was GI f/u and treatment for his Hep C. He was discharged home on January 04. On January 07 he represented to the ED in moderate respiratory distress. SpO2 was low 70s on room air, 88% on O2 FM, and 94% on 100% HFNC. Labs were notable for WBC 13, Hb 10.4, BUN/creat were 68/3.1 (from 53/3/0 on 01/04), Bicarb was 13, K was 5.2, gluc was 546, lactate was 3.2, alb was 2.2. Acetone was negative. DDimer was bumped to 1581 (from 506 on 01/03), CRP was up to 14. CXR showed patchy multifocal opacities in both lungs, c/w COVID. CT abdomen done for f/u of previous CT and bec of lactic acidosis showed the same two equivocal findings in the colon, one at the ileocecal valve region and one in the distal transverse colon ?which require further assessment in the setting of GI bleeding to exclude underlying malignancy.? Hepatic cirrhosis with portal venous hypertension as evidenced by splenomegaly and small upper abdominal varices was again demonstrated, w no significant ascites. The lung cuts showed severe bilat patchy opacities suggestive of infectious/inflammatory process. The patient was admitted to ICU and treated with dexamethasone and insulin drip. U/o and renal fxn improved slightly and his lactic and metabolic acidoses resolved. However, his oxygenation deteriorated, and he required tracheal intubation on 01/08. The next day we were able to get his FiO2 down as low as 60%. Echo showed moderate LVH, normal LV size and fxn, normal RV size, normal RVSP, and IVC measured 1.9cm w about 50% insp collapse. He was started him on a 5-day course of ivermectin, along w vit D and thimaine, and we upped his steroids to Solumedrol 80mg bid. On 01/10 we started him on losartan bec of HTN. HOSPITAL COURSE since then: Renal indices have waxed and waned. A routine CXR done 01/13 showed a new small right apical PTX and pneumomediastinum, which we initially just watched. Adding Precedex improved his sedation and allowed reduction of his inspiratory pressures. It caused his BP to rise, however, which was refractory to IV labetolol, so he was started on nicardipine. Follow- up chest x-rays initially showed resolution of the pneumothorax and pneumomediastinum. However, a couple of days later, his Sat?s decreased and a CXR showed reappearance and enlargement of the PTX. A Gonzalo pneumothorax drainage catheter was placed. The patient had an ETT change on January 16 bec of a cuff leak. His pneumothorax drainage catheter was pulled on 01/20. He was ultimately extubated on 01/24, and at that time was responsive to commands. He had to be reintubated the next day bec of a massive left lung aspiration. He required 100% FiO2. He was given 48 hrs of Levaquin. His FiO2 gradually come down to as low as 30%. Tracheostomy and PEG were planned for today. 02/02 we turned his propofol off for a propofol holiday. He was off for about 12 hours. His eyes were open, but he never became interactive, he had no response to confrontation, no spontaneous movement, and hardly even a grimace to pain. He had to go back on the propofol bec of ventilator dysynchrony, but we did a head CT yesterday which showed a large area of subacute right periventricular frontal and parietal lobe and subcortical right parietal lobe infarcts. There was no edema and no MLS. Those are new findings since his last head CT in our records which was 08/20/2020. We spoke with the family at length last night about all that and they decided not to proceed with the tracheostomy and PEG. They were considering STACK YIELD ENGINEER status. The family came in this morning and I showed them all his CT scan, comparing it to his CT in August. We talked at length about his condition and prognosis and that is when the final decision of STACK YIELD ENGINEER was made; the patient was extubated to room air. He was breathing comfortably on the propofol and fentanyl. His hemoglobin oxygen saturation progressively declined. When it dropped to about 50%, he junaid'd down and then went asystolic at 14:14. The family was at the bedside. Total time spent providing and/or coordinating discharge services:45 min Discharge coordination time: Greater than 30 minutes Quality: Stroke Does the patient have a stroke diagnosis?: Yes Reason for No Anti-thrombotic at DC: Not indicated Reason for No Anticoagulant at DC: Not indicated Reason Not Initiating IV-Tpa: Not indicated Reason for No Anti-thrombotic by Day Two: Not indicated Reason for No Statin at DC: Not indicated (PT ) Physical Exam Vital Signs: Vital Signs: Last Vital Signs Temp 100.6 F H 02/02/21 13:00 Pulse 83 02/02/21 14:00 Resp 21 H 02/02/21 13:00 BP 109/61 02/02/21 13:00 Pulse Ox 64 L 02/02/21 13:00 Oxygen Flow Rate 100 01/07/21 05:11 Body Mass Index 34.2 DS: Data Data Completed and Pending Labs on day of discharge: Laboratory Results - last 24 hr 02/01/21 02/02/21 02/02/21 23:39 05:21 05:25 WBC 6.1 RBC 3.00 L Hgb 8.4 L Hct 28.0 L MCV 93.3 MCH 28.0 MCHC 30.0 L RDW 16.7 H Plt Count 111 L MPV 12.8 H Immature Gran % (Auto) 0.8 H Neut % (Auto) 67.7 Lymph % (Auto) 21.0 Cottle % (Auto) 6.9 Eos % (Auto) 3.4 Baso % (Auto) 0.2 Lymph # (Auto) 1.3 Cottle # (Auto) 0.4 Eos # (Auto) 0.2 Baso # (Auto) 0.0 Abs Immat Gran (auto) 0.05 H Absolute Neuts (auto) 4.1 Absolute Nucleated RBC 0.000 Nucleated RBC % (auto) 0.0 VBG pH 7.33 VBG pCO2 32 VBG pO2 34 VBG HCO3 17 L VBG O2 Saturation 52.0 VBG Base Excess -7.7 Sodium Potassium Chloride Carbon Dioxide Anion Gap BUN Creatinine Estim Creat Clear Calc Estimated GFR POC Glucose 157 H Random Glucose Calcium Total Bilirubin AST ALT Alkaline Phosphatase Total Protein Albumin 02/02/21 05:25 WBC RBC Hgb Hct MCV MCH MCHC RDW Plt Count MPV Immature Gran % (Auto) Neut % (Auto) Lymph % (Auto) Cottle % (Auto) Eos % (Auto) Baso % (Auto) Lymph # (Auto) Cottle # (Auto) Eos # (Auto) Baso # (Auto) Abs Immat Gran (auto) Absolute Neuts (auto) Absolute Nucleated RBC Nucleated RBC % (auto) VBG pH VBG pCO2 VBG pO2 VBG HCO3 VBG O2 Saturation VBG Base Excess Sodium 145 Potassium 3.8 Chloride 118 H Carbon Dioxide 18 L Anion Gap 13 BUN 74 H Creatinine 2.67 H Estim Creat Clear Calc 48.2 Estimated GFR 26 POC Glucose Random Glucose 176 H Calcium 8.1 L Total Bilirubin 1.3 H AST 44 H D ALT 30 Alkaline Phosphatase 107 D Total Protein 6.0 L Albumin 2.5 L Discharge Plan Discharge Date/Time: 02/02/21 14:14 Patient Disposition: Referrals: Bala Stroud MD [Primary Care Provider] - 1 Week Discharge Medications: No Action ondansetron 4 mg tablet,disintegrating 4 mg PO Q6-8H PRN (Reason: nausea and vomiting) Qty: 14 RF: 0 metoprolol succinate 100 mg tablet extended release 24 hr 100 mg PO DAILY RF: 0 hydralazine 25 mg Tablet 25 mg PO TID RF: 0 clopidogrel 75 mg tablet 1 tab PO DAILY RF: 0 Hold Instructions: Resume on 01/20/21. hold pending instructions from plywood layup line core feeder aspirin 81 mg tablet,delayed release (DR/EC) 1 tab PO DAILY RF: 0 Hold Instructions: Resume on 01/20/21. hold pending instructions from plywood layup line core feeder hydromorphone 4 mg tablet 1 tab PO BEDTIME PRN (Reason: pain) RF: 0 Humalog KwikPen Insulin 200 UNITS/ML 60 units subcut TID RF: 0 prednisone 20 mg tablet 40 mg PO DAILY Qty: 6 RF: 0 albuterol sulfate [Ventolin HFA] 90 mcg/actuation Hfa Aerosol Inhaler 2 puff inhalation Q4H PRN (Reason: shortness of breath or wheeze) Qty: 8.5 RF: 0 Toujeo SoloStar U-300 Insulin 300 unit/mL (1.5 mL) insulin pen 160 unit subcut QAM RF: 0 oxycodone 20 mg Tablet 40 mg PO Q4H PRN (Reason: Pain) RF: 0 Discharge Date/Time: 02/02/21 14:14
--- NOTE | 2021-02-16 14:06 | MHC.CDI.RETR ---
Retrospective Query Please clarify if you have treated a probable/suspected/likely or confirmed: Encephalopathy: - Metabolic - Septic - Toxic - Toxic metabolic - Hypertensive - Anoxic - Alcoholic - Hepatic (reported as hepatic failure and needs further specificity as to acute, subacute, or chronic) - Due to a specified condition (such as UTI, hyponatremia, CVA, etc.) - Other (please specify): - Unable to determine - No Encephalopathy Use of terms such as suspected, likely, concern for, or probable (associated with a specific diagnosis that is being evaluated, monitored, or treated as if it exists) are acceptable and can be coded in the inpatient setting, when documented at the time of discharge. PLEASE DO NOT DELETE/MODIFY EXISTING CONTENT Additional information is needed in order to code to the highest accuracy and appropriate Severity of Illness (SOI). Please clarify the information noted below in your progress notes and discharge summary. Risk Factors/Clinical Indicators/Treatments Per MD notes: 01/25/21: Lethargic, arousable, re-intubated because of left lung aspiration. 02/02/21: Propofol off, eyes open, but he never became interactive, no spontaneous movement and hardly a grimace to pain CDS: Amelia Kat RN Contact Number: [phone] Please Review the information above and exercise your independent professional judgment in responding to the query. If you concur, pleas document in the PROGRESS NOTES and DISCHARGE SUMMARY. If you do not agree with the query, please document in the query above. THIS QUERY IS PART OF THE PERMANENT MEDICAL RECORD
== END 2021-02-02 14:14 | disposition expired | DRG 130 ==
LOC: HO.ED 05:21 → HO.ICU 11:54
PROVIDERS: Internal Medicine; Internal Medicine Cardiovascular Disease; Internal Medicine Nephrology; Physician Assistant; Physician Assistant Medical; Registered Nurse Community Health; Admitting Provider Internal Medicine Pulmonary Disease; Emergency Provider Emergency Medicine; PCP Internal Medicine; Visit Provider Anesthesiology
DX: U07.1 COVID-19 (principal); I63.9 Cerebral infarction, unspecified; J12.82 Pneumonia due to coronavirus disease 2019; J69.0 Pneumonitis due to inhalation of food and vomit; N17.9 Acute kidney failure, unspecified; N18.32 Chronic kidney disease, stage 3b; E66.01 Morbid (severe) obesity due to excess calories; K92.2 Gastrointestinal hemorrhage, unspecified; E11.22 Type 2 diabetes mellitus with diabetic chronic kidney disease; E11.51 Type 2 diabetes mellitus with diabetic peripheral angiopathy without gangrene; J80 Acute respiratory distress syndrome; I12.9 Hypertensive chronic kidney disease with stage 1 through stage 4 chronic kidney disease, or unspecified chronic kidney disease; K74.60 Unspecified cirrhosis of liver; K52.9 Noninfective gastroenteritis and colitis, unspecified; F11.10 Opioid abuse, uncomplicated; Z89.512 Acquired absence of left leg below knee; Z86.73 Personal history of transient ischemic attack (TIA), and cerebral infarction without residual deficits; B18.2 Chronic viral hepatitis C; E11.65 Type 2 diabetes mellitus with hyperglycemia; Z68.34 Body mass index [BMI] 34.0-34.9, adult; Z89.511 Acquired absence of right leg below knee; E87.2 Acidosis; K63.89 Other specified diseases of intestine; J93.9 Pneumothorax, unspecified; Z88.0 Allergy status to penicillin; Z88.2 Allergy status to sulfonamides; Z79.4 Long term (current) use of insulin; Z79.02 Long term (current) use of antithrombotics/antiplatelets; Z79.82 Long term (current) use of aspirin; Z79.899 Other long term (current) drug therapy; Z51.5 Encounter for palliative care
CPT/HCPCS: 36415; 70450; 71045; 74176; 80048; 80053; 80076; 81001; 82009; 82040; 82043; 82270; 82272; 82550; 82728; 82803; 82947; 83520; 83540; 83605; 83615; 83735; 83880; 83935; 84100; 84145; 84300; 84484; 85014; 85018; 85025; 85027; 85379; 85610; 85730; 86022; 86140; 86850; 86900; 86901; 86923; 87040; 87070; 87147; 87205; 87635; 93005; 93306; 93880; 94002; 94003; 94640; 94644; 94660; 94799; 99285; J0696; J0883; J1200; J1940; J1956; J2020; J2060; J2250; J2765; J2920; J2930; J3010; J3411; J3475; J8540; P9016; P9047